=== PATIENT | male | born 1940 | race Caucasian/White ===

== ENCOUNTER 2021-08-19 12:52 | Outpatient (CLI) | payer OTHER, SELFPAY | END 2021-08-19 12:53 | disposition home or self-care (01) | PROVIDERS: PCP Family Medicine; Visit Provider Nurse Practitioner Family | DX: L59.8 Other specified disorders of the skin and subcutaneous tissue related to radiation (principal) | CPT/HCPCS: 11042 ==

== ENCOUNTER 2021-09-02 12:58 | Outpatient (CLI) | payer MEDICAID, OTHER, SELFPAY | END 2021-09-02 12:59 | disposition home or self-care (01) | LOC: WOUND 12:58 | PROVIDERS: PCP Family Medicine; Visit Provider Nurse Practitioner Family | DX: L59.8 Other specified disorders of the skin and subcutaneous tissue related to radiation (principal); L97.812 Non-pressure chronic ulcer of other part of right lower leg with fat layer exposed; F17.200 Nicotine dependence, unspecified, uncomplicated | CPT/HCPCS: 99212 ==

== ENCOUNTER 2021-09-16 12:50 | Outpatient (CLI) | payer OTHER, SELFPAY | END 2021-09-16 12:51 | disposition home or self-care (01) | LOC: WOUND 12:51 | PROVIDERS: PCP Family Medicine; Visit Provider Nurse Practitioner Family | DX: L59.8 Other specified disorders of the skin and subcutaneous tissue related to radiation (principal); L97.812 Non-pressure chronic ulcer of other part of right lower leg with fat layer exposed; F17.200 Nicotine dependence, unspecified, uncomplicated | CPT/HCPCS: 99212 ==

== ENCOUNTER 2021-09-29 15:35 | Outpatient (CLI) | payer OTHER, SELFPAY ==
--- OUTSIDE RECORDS SUMMARY | 2021-10-12 18:43 | XMS_ITS | Encounter Summary ---
:1940 Author Organization [facility] Address [address] [place] [address] Care Team Providers Name Role Phone Unavailable Primary Care Provider Unavailable Reason for Visit Reason Comments Follow-up Encounter Details Date Type Department Care Team Description 10/30/2020 Clinical Communication Department of Bethany Natarajanzuhair Radiation Oncology in [place] Adhikari [facility] a [address] [facility] [address] [place] [phone] Social History Tobacco Use Types Packs/Day Years [...] center to help with this. Phone number: [phone] Is it okay to leave a voicemail on answering machine with test results? No Pharmacy (if medication related): N/A Elif Parkinson documented in this encounter Plan of Treatment Not on filedocumented as of this encounter Visit Diagnoses Not on filedocumented in this encounter
--- OUTSIDE RECORDS SUMMARY | 2021-10-12 18:43 | XMS_ITS | Encounter Summary ---
:1940 Author Organization [facility] Address [address] [place] [address] Care Team Providers Name Role Phone Unavailable Primary Care Provider Unavailable Encounter Details Date Type Department Care Team Description 09/27/2020 Clinical Communication Department of Bethany Natarajan Radiation Oncology in [place] Adhikari [facility] [address] [facility] [address] [place] [address] [phone] Social History Tobacco Use Types Packs/Day Years [...]
--- OUTSIDE RECORDS SUMMARY | 2021-10-12 18:43 | XMS_ITS | Encounter Summary ---
:1940 Author Organization [facility] Address [address] [place] [address] Care Team Providers Name Role Phone Unavailable Primary Care Provider Unavailable Encounter Details Date Type Department Care Team Description 07/10/2020 Clinical Communication Department of Bethany Natarajan Radiation Oncology in [place] Adhikari [facility] [address] [facility] [address] [place] [address] [phone] Social History Tobacco Use Types Packs/Day Years [...] informed him that a prescription for the Harper has been sent to the [facility] in [place]. Phone number: [phone] Is it okay to leave a voicemail on answering machine with test results? Yes Pharmacy (if medication related): N/A Elif Parkinson documented in this encounter Plan of Treatment Not on filedocumented as of this encounter Visit Diagnoses Not on filedocumented in this encounter
--- OUTSIDE RECORDS SUMMARY | 2021-10-12 18:43 | XMS_ITS ---
:1940 Author Organization [facility] Address [address] [place] [address] Care Team Providers Name Role Phone Unavailable [...] Elapsed Days Session Dose Total Dos e [id number] 05/15/2020 21 300 cGy 4,500 cGy [id number] 05/06/2020 12 425 cGy 3,825 cGy [id number] 04/26/2020 2 700 cGy 2,100 cGy
--- OUTSIDE RECORDS SUMMARY | 2021-10-12 18:43 | XMS_ITS | Encounter Summary ---
:1940 Author Organization [facility] Address [address] [place] [address] Care Team Providers Name Role Phone Unavailable Primary Care Provider Unavailable Reason for Visit Reason Comments Med Refill Encounter Details Date Type Department Care Team Description 07/09/2020 Clinical Communication Department of Bethany Natarajan ed Refill Radiation Oncology in [place] Adhikari [facility] [address] [facility] [address] [place] [address] [phone] Social History Tobacco Use Types Packs/Day Years [...] would like a refill today. Phone number: [phone] Is it okay to leave a voicemail on answering machine with test results? Yes Pharmacy (if medication related): [facility] [address] [place] [address] [facility] [address] [facility] [address] Paula Hall documented in this encounter Plan of Treatment Not on filedocumented as of this encounter Visit Diagnoses Not on filedocumented in this encounter
--- OUTSIDE RECORDS SUMMARY | 2021-10-12 18:43 | XMS_ITS | Encounter Summary ---
:1940 Author Organization [facility] Address [address] [place] [address] Care Team Providers Name Role Phone Unavailable Primary Care Provider Unavailable Reason for Visit Reason Comments Med Refill Encounter Details Date Type Department Care Team Description 08/08/2020 Clinical Communication Department of Travis Hall Refjoanne Radiation Oncology in [facility] [place] [address] [place] [phone] Social History Tobacco Use Types Packs/Day Years Used Date Smoking Tobacco: Every Day Sex Assigned at Date Recorded Not on file documented as of this encounter Miscellaneous Notes Telephone Encounter - Deedee Fry R.N. - 08/08/2020 1:06 PM CDT Information Discussed I called and left voicemail on patient's phone requesting call back. Patient reported that he was taking [place] twice a day at his last in office visit with us. PLAN Dr. Natarajan and I will send through refill on [place] to get him through until August 16, 2020, when he is scheduled for follow up with Dr. Natarajan in [place]. Disposition/Recommendation: I requested call back, refill will be sent to patient's pharmacy today Information/Education: not applicable Caller agreeable to plan of care: unable to reach patient at this time The following references were used: nursing clinical judgement and provider Dr. Natarajan Telephone Encounter - Paula Hall - 08/08/2020 12:28 PM CDT Caller: Tl Is there a valid authorization to speak with caller? Yes Primary Radiation Oncologist: Dr. Natarajan Reason for call: Would like to see if we could refill his hydrocodone and would like a phone call toknow if it can be done or not Phone number: [phone] Is it okay to leave a voicemail on answering machine with test results? Yes Pharmacy (if medication related): [facility] [address] [place] [address] Paula Hall documented in this encounter Plan of Treatment Not on filedocumented as of this encounter Visit Diagnoses Not on filedocumented in this encounter
--- OUTSIDE RECORDS SUMMARY | 2021-10-12 18:43 | XMS_ITS | Encounter Summary ---
:1940 Author Organization [facility] Address [address] [place] [address] Care Team Providers Name Role Phone Unavailable Primary Care Provider Unavailable Reason for Referral Specialty Diagnoses / Procedures Referred By Contact Refer red To Contact Dona Zuniga M.D. [facility] [address] [place] [address] Referral ID Status Reason Start Date Expiration Date Visits Requ ested Visits Authorized Encounter Details Date Type Department Care Team Description 11/01/2020 Orders Only [facility] P[facility] MNT Sa greyson Zuniga M.D. [address] [place] [address] [phone] (Wo rk) Social History Tobacco [...]
--- OUTSIDE RECORDS SUMMARY | 2021-10-12 18:44 | XMS_ITS | Encounter Summary ---
:1940 Author Organization [facility] Address [address] [place] [address] Care Team Providers Name Role Phone Unavailable Primary Care Provider Unavailable Encounter Details Date Type Department Care Team Description 02/12/2017 Hospital Encounter HX RST DERM SURG OP Avni Gaffney [facility] M.D. [address] [place] [address] (Wo rk) Social History Tobacco Use Types Packs/Day Years Used Date Smoking Tobacco: Never Assessed Sex Assigned at Date Recorded Not on file documented as of this encounter Last Filed Vital Signs Vital Sign Reading Time Taken Comments Blood Pressure 141/85 02/12/2017 8:05 AM INTELLIGENT SYSTEMS ENGINEER Vital sign result from Clinical Notes. Pulse 89 02/12/2017 8:05 AM INTELLIGENT SYSTEMS ENGINEER Vital sign result from Clinical Notes. Temperature [...]
--- OUTSIDE RECORDS SUMMARY | 2021-10-12 18:44 | XMS_ITS | Encounter Summary ---
:1940 Author Organization [facility] Address [address] [place] [address] Care Team Providers Name Role Phone Unavailable Primary Care Provider Unavailable Reason for Referral Outpatient (Routine) - Closed Specialty Diagnoses / Procedures Referred By Contact Refer red To Contact Radiation Oncology Bethany Natarajan [facility] Feli Gomez M.D. [address] [place] [address] Referral ID Status Reason Start Date Expiration Date Visits Requ ested Visits Authorized [id number] Closed 05/28/2020 05/28/2021 1 1 Scheduling Instructions 2-3 weeks with [facility] Outpatient (Routine) - Closed Specialty Diagnoses / Procedures Referred By Contact Refer red To Contact Radiation Oncology Bethany Natarajan [facility] Feli Gomez M.D. [address] [place] [address] Referral ID Status Reason Start Date Expiration Date Visits Requ ested Visits Authorized [id number] Closed 05/15/2020 05/15/2021 1 1 Scheduling Instructions Deedee first to assess skin Reason for Visit Outpatient (Routine) - Closed Specialty Diagnoses / Procedures Referred By Contact Refer red To Contact Radiation Oncology Bethany Natarajan [facility] Feli Gomez M.D. 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 05/28/2020 1:16 PM CDT [facility] [address] [place] [address] ATTESTATION FOR FOLLOW-UP VISIT I saw and [...]
--- OUTSIDE RECORDS SUMMARY | 2021-10-12 18:44 | XMS_ITS | Encounter Summary ---
:1940 Author Organization [facility] Address [address] [place] [address] Care Team Providers Name Role Phone Unavailable [...] 04/16/2020 1:28 PM Re sults for this EMPLOYEE RELATIONS DIRECTOR procedure are i n the results section. documented in this encounter Results Leg-Oncology Image Exam (04/16/2020 1:28 PM EMPLOYEE RELATIONS DIRECTOR) Specimen (Source) Anatomical Collection Method Collection Time Re ceived Time Location / / Volume Laterality 04/16/2020 1:25 PM EMPLOYEE RELATIONS DIRECTOR Narrative IIMS - 04/16/2020 1:28 PM EMPLOYEE RELATIONS DIRECTOR This order has been created and auto-finalized [...]
--- OUTSIDE RECORDS SUMMARY | 2021-10-12 18:44 | XMS_ITS | Encounter Summary ---
:1940 Author Organization [facility] Address [address] [place] [address] Care Team Providers Name Role Phone Unavailable [...] 04/16/2020 1:28 PM Re sults for this NURSE ASSESSOR procedure are i n the results section. documented in this encounter Results Leg-Oncology Image Exam (04/16/2020 1:28 PM NURSE ASSESSOR) Specimen (Source) Anatomical Collection Method Collection Time Re ceived Time Location / / Volume Laterality 04/16/2020 1:25 PM NURSE ASSESSOR Narrative IIMS - 04/16/2020 1:28 PM NURSE ASSESSOR This order has been created and auto-finalized [...]
--- OUTSIDE RECORDS SUMMARY | 2021-10-12 18:44 | XMS_ITS | Encounter Summary ---
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 I encouraged him to [...] Garrison Casas M.D. 05/07/2020 4:51 PM CDT [facility] [address] [place] [address] documented in this encounter Plan of Treatment [...]
--- OUTSIDE RECORDS SUMMARY | 2021-10-12 18:44 | XMS_ITS | Encounter Summary ---
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 [facility] Procedures Prior Auth Rad Tx [place] IMRT COMPLEX [address] [place] [address] Referral ID Status Reason Start Date Expiration Date Visits Requ ested Visits Authorized [id number] Closed 04/16/2020 04/16/2021 15 15 Encounter Details Date Type Department Care Team Description 05/01/2020 Hospital Encounter Department of Radiation Shaneka Natarajan I., Oncology in [place], [place] [address] [facility] [address] [place] [phone] Social History Tobacco Use Types Packs/Day Years [...]
--- OUTSIDE RECORDS SUMMARY | 2021-10-12 18:44 | XMS_ITS | Encounter Summary ---
:1940 Author Organization [facility] Address [address] [place] [address] Care Team Providers Name Role Phone Unavailable [...] 12:05 Result s for this EXAM PM PROFESSOR OF BIOSTATISTICS procedure are i n the results section. documented in this encounter Results DERMATOLOGY IMAGE EXAM (02/12/2017 12:05 PM PROFESSOR OF BIOSTATISTICS) Specimen (Source) Anatomical Collection Method Collection Time Re ceived Time Location / / Volume Laterality 02/12/2017 12:00 PM PROFESSOR OF BIOSTATISTICS Narrative IIMS - 02/12/2017 2:49 PM PROFESSOR OF BIOSTATISTICS This order has been created and auto-finalized [...]
--- OUTSIDE RECORDS SUMMARY | 2021-10-12 18:44 | XMS_ITS | Encounter Summary ---
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; in [place], [facility] Malignant Neoplasm Of Lower Limb Basal C ell Carcinoma Right [place], [place] [address] [facility] [address] [place], [place] [phone] (Work) [phone] Social History Tobacco Use Types Packs/Day Years Used Date Smoking Tobacco: Every Day Sex Assigned at Date Recorded Not on file documented as of this encounter Last Filed Vital Signs Vital Sign Reading Time Taken Comments Blood Pressure 148/82 05/01/2020 1:55 PM SENIOR RUBY DEVELOPER Pulse 86 05/01/2020 1:55 PM SENIOR RUBY DEVELOPER Temperature 36.3 ??C (97.3 ??F) 05/01/2020 1:55 PM SENIOR RUBY DEVELOPER Respiratory Rate - - Oxygen Saturation - [...] with radiation treatment as planned. Signed by: Quynh Moreno P.A.-C. M.SJhon 05/01/2020 2:25 PM SENIOR RUBY DEVELOPER OR RUBY DEVELOPER Associated attestation - Bethany Natarajan M.D. - 05/01/2020 4:43 PM SENIOR RUBY DEVELOPER I saw and evaluated the patient and participated in the gregory portions of the service. I reviewed the documentation of Ms. Quynh Moreno PA-C, MS and agree with the findings and plan. The patient appears well on exam. We will continue with radiation as planned and monitor weekly. Bethany Natarajan M.D., 05/01/2020 documented in this encounter [...]
--- OUTSIDE RECORDS SUMMARY | 2021-10-12 18:44 | XMS_ITS | Encounter Summary ---
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
--- OUTSIDE RECORDS SUMMARY | 2021-10-12 18:44 | XMS_ITS | Encounter Summary ---
:1940 Author Organization [facility] Address [address] [place] [address] Care Team Providers Name Role Phone Unavailable [...] 12:00 Result s for this EXAM PM TEMPERATURE INSPECTOR procedure are i n the results section. documented in this encounter Results DERMATOLOGY IMAGE EXAM (02/12/2017 12:00 PM TEMPERATURE INSPECTOR) Specimen (Source) Anatomical Collection Method Collection Time Re ceived Time Location / / Volume Laterality 02/12/2017 12:00 PM TEMPERATURE INSPECTOR Narrative IIMS - 02/12/2017 2:49 PM TEMPERATURE INSPECTOR This order has been created and [...]
--- OUTSIDE RECORDS SUMMARY | 2021-10-12 18:44 | XMS_ITS | Encounter Summary ---
:1940 Author Organization [facility] Address [address] [place] [address] Care Team Providers Name Role Phone Unavailable Primary Care Provider Unavailable Reason for Visit Reason Comments Lab Monitoring Encounter Details Date Type Department Care Team Description 04/19/2020 Documentation Department of Radiation Deedee Fry, Lab Monitoring Oncology in [facility] [address] [facility] [address] [place] [address] [phone] (Wo rk) Social History Tobacco Use Types Packs/Day Years Used Date Smoking Tobacco: Every Day Sex Assigned at Date Recorded Not on file documented as of this encounter Progress Notes Deedee Fry, RJhonN. - 04/19/2020 10:39 AM CST Lab result entered in NG CUTTER documented in this encounter Plan of Treatment Not on filedocumented as of this encounter Procedures Procedure Name Priority Date/Time Associated Diagnosis Comme nts LABEXT SARS Routine 04/17/2020 12:00 AM Results for this CORONAVIRUS-2 LINING CUTTER procedure are in (COVID-19) RNA the results section. documented in this encounter Results EXT SARS Coronavirus-2 (COVID-19) RNA (04/17/2020 12:00 AM LINING CUTTER) [facility] Method Time Signature EXT Undetected Inconclus [facility] SARS-CoV-2 sylvia, LABORATORIES - RNA Indetermi [facility] Invalid, Negative, Not Detected, Undetecte d, Other (specify in comment) Specimen (Source) Anatomical Location Collection Method / Collectio n Time Received Time / Laterality Volume Swab 04/17/2020 Bethany Natarajan M.D. LAB MICROBIOLOGY - GENERAL O RDERABLES Performing Organization Address City/State/ZIP Code Phon e Number [facility] - [address] [place], [place] [address] [facility] documented in this encounter Visit Diagnoses Not on filedocumented in this encounter
--- OUTSIDE RECORDS SUMMARY | 2021-10-12 18:44 | XMS_ITS | Encounter Summary ---
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 [facility] Procedures Prior Auth Rad Tx [place] IMRT COMPLEX [address] [place] [address] Referral ID Status Reason Start Date Expiration Date Visits Requ ested Visits Authorized [id number] Closed 04/16/2020 04/16/2021 15 15 Encounter Details Date Type Department Care Team Description 05/13/2020 Hospital Encounter Department of Radiation Shaneka Natarajan I., Oncology in [place] [address] [facility] [address] [place] [phone] Social History Tobacco Use Types Packs/Day Years [...]
--- OUTSIDE RECORDS SUMMARY | 2021-10-12 18:44 | XMS_ITS | Encounter Summary ---
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 [facility] Procedures Prior Auth Rad Tx [place] IMRT COMPLEX [address] [place] [address] Referral ID Status Reason Start Date Expiration Date Visits Requ ested Visits Authorized [id number] Closed 04/16/2020 04/16/2021 15 15 Encounter Details Date Type Department Care Team Description 05/08/2020 Hospital Encounter Department of Radiation Shaneka Natarajan I., Oncology in [place] [address] [facility] [address] [place] [phone] Social History Tobacco Use Types Packs/Day Years [...]
--- OUTSIDE RECORDS SUMMARY | 2021-10-12 18:44 | XMS_ITS | Encounter Summary ---
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 [facility] Procedures Prior Auth Rad Tx [place] IMRT COMPLEX [address] [place] [address] Referral ID Status Reason Start Date Expiration Date Visits Requ ested Visits Authorized [id number] Closed 04/16/2020 04/16/2021 15 15 Encounter Details Date Type Department Care Team Description 04/29/2020 Hospital Encounter Department of Radiation Shaneka Natarajan I., Oncology in [place], [place]inne [place] [address] [facility] [address] [place] [phone] Social History Tobacco Use Types Packs/Day Years [...]
--- OUTSIDE RECORDS SUMMARY | 2021-10-12 18:44 | XMS_ITS | Encounter Summary ---
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 [facility] Procedures Prior Auth Rad Tx [place] IMRT COMPLEX [address] [place] [address] Referral ID Status Reason Start Date Expiration Date Visits Requ ested Visits Authorized [id number] Closed 04/16/2020 04/16/2021 15 15 Encounter Details Date Type Department Care Team Description 04/26/2020 Hospital Encounter Department of Radiation Shaneka Natarajan I., Oncology in [place], [place]inne [place] [address] [facility] [address] [place] [phone] Social History Tobacco Use Types Packs/Day Years [...]
--- OUTSIDE RECORDS SUMMARY | 2021-10-12 18:44 | XMS_ITS | Encounter Summary ---
:1940 Author Organization [facility] Address [address] [place] [address] Care Team Providers Name Role Phone Unavailable [...] 12:25 Result s for this EXAM PM SHAREPOINT CONSULTANT procedure are i n the results section. documented in this encounter Results DERMATOLOGY IMAGE EXAM (02/12/2017 12:25 PM SHAREPOINT CONSULTANT) Specimen (Source) Anatomical Collection Method Collection Time Re ceived Time Location / / Volume Laterality 02/12/2017 12:00 PM SHAREPOINT CONSULTANT Narrative [facility] - 02/12/2017 2:50 PM SHAREPOINT CONSULTANT This order has been created and auto-finalized [...]
--- OUTSIDE RECORDS SUMMARY | 2021-10-12 18:44 | XMS_ITS | Encounter Summary ---
:1940 Author Organization [facility] Address [address] [place] [address] Care Team Providers Name Role Phone Unavailable [...] 12:15 Result s for this EXAM PM RESISTANCE MACHINE WELDER SETTER procedure are i n the results section. documented in this encounter Results DERMATOLOGY IMAGE EXAM (02/12/2017 12:15 PM RESISTANCE MACHINE WELDER SETTER) Specimen (Source) Anatomical Collection Method Collection Time Re ceived Time Location / / Volume Laterality 02/12/2017 12:00 PM RESISTANCE MACHINE WELDER SETTER Narrative [facility] - 02/12/2017 2:49 PM RESISTANCE MACHINE WELDER SETTER This order has been created and auto-finalized [...]
--- OUTSIDE RECORDS SUMMARY | 2021-10-12 18:44 | XMS_ITS | Encounter Summary ---
:1940 Author Organization [facility] Address [address] [place] [address] Care Team Providers Name Role Phone Unavailable Primary Care Provider Unavailable Reason for Referral Specialty Diagnoses / Procedures Referred By Contact Refer red To Contact Bethany Natarajan M.D. [facility] [address] [place] [phone] Referral ID Status Reason Start Date Expiration Date Visits Requ ested Visits Authorized CIATE STORE DIRECTOR Encounter Details Date Type Department Care Team Description 04/30/2020 - Hospital Encounter Department of Aramis Natarajan M.D. 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 [address] [place] [phone] 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; in [place], Malignant Henry plasm Of Lower Limb Basal Cell Carcinoma Right [place] [address] [place] [phone] Social History Tobacco Use Types Packs/Day Years [...]
--- OUTSIDE RECORDS SUMMARY | 2021-10-12 18:44 | XMS_ITS | Encounter Summary ---
:1940 Author Organization [facility] Address [address] [place] [address] Care Team Providers Name Role Phone Unavailable Primary Care Provider Unavailable Reason for Referral Outpatient (Routine) - Closed Specialty Diagnoses / Procedures Referred By Contact Refer jose luis To Contact Radiation Oncology Bethany Natarajan [facility] Feli Gomez M.D. [address] [place] [phone] Referral ID Status Reason Start Date Expiration Date Visits Requ ested Visits Authorized [id number] Closed 05/28/2020 05/28/2021 1 1 Scheduling Instructions 2-3 weeks with CECY and Deedee Reason for Visit Outpatient (Routine) - Closed Specialty Diagnoses / Procedures Referred By Contact Sofi amaya To Contact Radiation Oncology Bethany Natarajan [facility] Feli Gomez M.D. [address] [place] [phone] Referral ID Status Reason Start Date Expiration Date Visits Requ ested Visits Authorized [id number] Closed 05/28/2020 05/28/2021 1 1 Encounter Details Date Type Department Care Team Description 06/11/2020 Hospital Encounter Department of Bethany Natarajan (Primary Dx) Radiation Oncology [place] Adhikari in [place], [address] [place] [address] [address] [facility] [address] [place], [place] [phone] (Work) [phone] Social History Tobacco Use Types Packs/Day Years [...] a 8 out of 10.He takes 1 Mills in the morning and 1 at bedtime. [...] will send through prescription refill on his Mills to his preferred pharmacy today. Patient is to not exceed 3200 mg of Ibuprofen a day. We encouraged patient to trial warm compresses for acute right eye mattering. We will send through referral to [facility]. We will see Mr. Tl Lugo in a follow-up visit in late July. The patient was told to contact us sooner with questions or concerns. He verbally expressed his understanding of the plan. Signed by: Deedee Fry R.N. 06/11/2020 1:09 PM CDT [facility] [address] [place] [address] documented in this encounter Plan of Treatment Scheduled Referrals Name Type Priority Associated Order Schedule Diagnoses Radiation Oncology Outpatient Referral Routine On ce for 1 office visit Occurrences sta rting (clinic) 06/11/2020 unti l 06/11/2020 documented as of this encounter Visit Diagnoses Diagnosis Red Eye - Primary documented in this encounter
--- OUTSIDE RECORDS SUMMARY | 2021-10-12 18:44 | XMS_ITS | Encounter Summary ---
:1940 Author Organization [facility] Address [address] [place] [address] Care Team Providers Name Role Phone Unavailable Primary Care Provider Unavailable Encounter Details Date Type Department Care Team Description 05/15/2020 Hospital Encounter Department of Radiation Shaneka Natarajan I., Oncology in [facility] [address] [facility] [address] [place] [phone] Social History Tobacco Use Types Packs/Day Years [...]
--- OUTSIDE RECORDS SUMMARY | 2021-10-12 18:44 | XMS_ITS | Encounter Summary ---
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 [facility] Procedures Prior Auth Rad Tx [place] IMRT COMPLEX [address] [place] [address] Referral ID Status Reason Start Date Expiration Date Visits Requ ested Visits Authorized [id number] Closed 04/16/2020 04/16/2021 15 15 Encounter Details Date Type Department Care Team Description 04/24/2020 Hospital Encounter Department of Radiation Shaneka Natarajan I., Oncology in [place], [place]inne [place] [address] [facility] [address] [place] [phone] Social History Tobacco Use Types Packs/Day Years [...]
--- OUTSIDE RECORDS SUMMARY | 2021-10-12 18:44 | XMS_ITS | Encounter Summary ---
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 [facility] Procedures Prior Auth Rad Tx [place] IMRT COMPLEX [address] [place] [address] Referral ID Status Reason Start Date Expiration Date Visits Requ ested Visits Authorized [id number] Closed 04/16/2020 04/16/2021 15 15 Encounter Details Date Type Department Care Team Description 04/30/2020 Hospital Encounter Department of Radiation Shaneka Natarajan I., Oncology in [place], [place]inne [place] [address] [facility] [address] [place] [phone] Social History Tobacco Use Types Packs/Day Years [...]
--- OUTSIDE RECORDS SUMMARY | 2021-10-12 18:44 | XMS_ITS | Encounter Summary ---
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 [facility] Procedures Prior Auth Rad Tx [place] IMRT COMPLEX [address] [place] [address] Referral ID Status Reason Start Date Expiration Date Visits Requ ested Visits Authorized [id number] Closed 04/16/2020 04/16/2021 15 15 Encounter Details Date Type Department Care Team Description 05/02/2020 Hospital Encounter Department of Radiation Shaneka Natarajan I., [place]cology in [place] [address] [facility] [address] [place] [phone] Social History Tobacco Use Types Packs/Day Years [...]
--- OUTSIDE RECORDS SUMMARY | 2021-10-12 18:44 | XMS_ITS | Encounter Summary ---
:1940 Author Organization [facility] Address [address] [place] [address] Care Team Providers Name Role Phone Unavailable [...] 12:10 Result s for this EXAM PM IMPLEMENTATION LEAD procedure are i n the results section. documented in this encounter Results DERMATOLOGY IMAGE EXAM (02/12/2017 12:10 PM IMPLEMENTATION LEAD) Specimen (Source) Anatomical Collection Method Collection Time Re ceived Time Location / / Volume Laterality 02/12/2017 12:00 PM IMPLEMENTATION LEAD Narrative [facility] - 02/12/2017 2:49 PM IMPLEMENTATION LEAD This order has been created and auto-finalized [...]
--- OUTSIDE RECORDS SUMMARY | 2021-10-12 18:44 | XMS_ITS | Encounter Summary ---
:1940 Author Organization [facility] Address [address] [place] [address] Care Team Providers Name Role Phone Unavailable [...] 12:20 Result s for this EXAM PM GANG TAILER procedure are i n the results section. documented in this encounter Results DERMATOLOGY IMAGE EXAM (02/12/2017 12:20 PM GANG TAILER) Specimen (Source) Anatomical Collection Method Collection Time Re ceived Time Location / / Volume Laterality 02/12/2017 12:00 PM GANG TAILER Narrative [facility] - 02/12/2017 2:49 PM GANG TAILER This order has been created and auto-finalized [...]
--- OUTSIDE RECORDS SUMMARY | 2021-10-12 18:44 | XMS_ITS | Encounter Summary ---
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 [facility] Procedures Prior Auth Rad Tx [place] IMRT COMPLEX [address] [place] [address] Referral ID Status Reason Start Date Expiration Date Visits Requ ested Visits Authorized [id number] Closed 04/16/2020 04/16/2021 15 15 Encounter Details Date Type Department Care Team Description 05/03/2020 Hospital Encounter Department of Radiation Shaneka Natarajan I., [place] [address] [facility] [address] [place] [phone] Social History Tobacco Use Types Packs/Day Years [...]
--- OUTSIDE RECORDS SUMMARY | 2021-10-12 18:44 | XMS_ITS | Encounter Summary ---
:1940 Author Organization [facility] Address [address] [place] [address] Care Team Providers Name Role Phone Unavailable [...] 12:00 Result s for this EXAM PM ALARM OPERATOR procedure are i n the results section. documented in this encounter Results DERMATOLOGY IMAGE EXAM (01/19/2017 12:00 PM ALARM OPERATOR) Specimen (Source) Anatomical Location Collection Method / Collectio n Time Received Time / Laterality Volume Narrative [facility] - 01/19/2017 4:19 PM ALARM OPERATOR This order has been created and auto-finalized [...]
--- OUTSIDE RECORDS SUMMARY | 2021-10-12 18:44 | XMS_ITS | Encounter Summary ---
:1940 Author Organization [facility] Address [address] [place] [address] Care Team Providers Name Role Phone Unavailable Primary Care Provider Unavailable Reason for Visit Appointment Request (Routine) - Closed Specialty Diagnoses / Procedures Referred By Contact Refer red To Contact Radiation Oncology Diagnoses Malignant Neoplasm Of Skin Basal Cell Carcinoma Malignant Neoplasm Of Skin Squamous Cell Carcinoma Annita Jay M.D. [address], [facility] [address] [place] [address] Referral ID Status Reason Start Date Expiration Date Visits Requ ested Visits Authorized [id number] Closed 03/08/2020 03/08/2021 1 1 Encounter Details Date Type Department Care Team Description 04/16/2020 Hospital Encounter Department of Bethany Natarajan Neoplasm Of Lower Limb Basal Cell Carcinoma Left (Primary Dx); Radiation Oncology [place] Adhikari Malignant Neoplasm Of Lower Limb Basal C ell Carcinoma Right; in [place], [facility] [address] [facility] 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 [place], [place] [address] [facility] [address] [place], [place] [phone] (Work) [phone] Social History Tobacco Use Types Packs/Day Years Used Date Smoking Tobacco: Every Day Sex Assigned at Date Recorded Not on file documented as of this encounter Last Filed Vital Signs Vital Sign Reading Time Taken Comments Blood Pressure 124/76 04/16/2020 12:50 PM TRAFFIC LINE PAINTER Pulse 93 04/16/2020 12:50 PM TRAFFIC LINE PAINTER Temperature 37.2 ??C (99 ??F) 04/16/2020 12:50 PM TRAFFIC LINE PAINTER Respiratory Rate - - Oxygen Saturation - - Inhaled Oxygen Concentration - - Weight 95.5 kg (210 lb 8.6 oz) 04/16/2020 12:50 PM TRAFFIC LINE PAINTER Height - - Body Mass Index - [...] surgery, nose SOCIAL HISTORY He lives in [place], [place]. He lives at [place] in an apartment. He is single. 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 He is mobile with [...] Photos were taken and are available in [employer] after obtaining consent. He has a 1.5 [...] We discussed the acute as well as exterminator helper risks, including, but not limited to fatigue, [...] by: Bethany Natarajan M.D. 04/16/2020 4:52 PM TRAFFIC LINE PAINTER Radiation Oncology [facility] [address] [place], [place] [id number] FIC LINE PAINTER documented in this encounter Miscellaneous Notes Addendum Note - Mame Amezquita - 04/16/2020 1:00 PM TRAFFIC LINE PAINTER Encounter addended by: Mame Amezquita on: 04/17/2020 8:34 AM Actions taken: Letter saved FIC LINE PAINTER documented in this encounter Plan of Treatment Not on filedocumented as of this encounter Visit Diagnoses Diagnosis Malignant Neoplasm Of Lower Limb Basal C ell Carcinoma Left - Primary Malignant Neoplasm Of Lower Limb Basal C ell Carcinoma Right 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
--- OUTSIDE RECORDS SUMMARY | 2021-10-12 18:44 | XMS_ITS | Encounter Summary ---
:1940 Author Organization [facility] Address [address] [place] [address] Care Team Providers Name Role Phone Unavailable [...] 12:35 Result s for this EXAM PM FIELD SERVICE COORDINATOR procedure are i n the results section. documented in this encounter Results DERMATOLOGY IMAGE EXAM (02/12/2017 12:35 PM FIELD SERVICE COORDINATOR) Specimen (Source) Anatomical Collection Method Collection Time Re ceived Time Location / / Volume Laterality 02/12/2017 12:00 PM FIELD SERVICE COORDINATOR Narrative [facility] - 02/12/2017 2:50 PM FIELD SERVICE COORDINATOR This order has been created and auto-finalized [...]
--- OUTSIDE RECORDS SUMMARY | 2021-10-12 18:44 | XMS_ITS | Encounter Summary ---
:1940 Author Organization [facility] Address [address] [place] [address] Care Team Providers Name Role Phone Unavailable [...] Onc Treatment Planning CT Simulation [address] [place], [place] [address] Referral ID Status Reason Start Date Expiration Date Visits Requ ested Visits Authorized [id number] Closed 04/10/2020 04/10/2021 1 1 D NUTRITION ASSISTANT Reason for Visit Radiation Therapy (Routine) [...] Onc Treatment Planning CT Simulation [address] [place], [place] [phone] Referral ID Status Reason Start Date Expiration Date Visits Requ ested Visits Authorized [id number] Closed 04/10/2020 04/10/2021 1 1 Encounter Details Date Type Department Care Team Description 04/16/2020 Hospital Encounter Department of Bethany Natarajan Neoplasm Of Lower Limb Basal Cell Carcinoma Left; Radiation Oncology [place] Adhikari 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; in [place], [address] [place] [address] Malignant Neoplasm Of Lower Limb Basal C ell Carcinoma Right [place], [place] [address] [facility] [address] [place], [place] [phone] (Work) [phone] Social History Tobacco Use Types Packs/Day Years [...] planning. CT images were transferred to the engageSimply treatment planning system, after a reference isocenter was determined and marked. Segmentation and treatment planning will take place priorto treatment delivery. Patient set up and imaging was appropriate and completed without incident. Integration Analyst use:No D NUTRITION ASSISTANT documented in this encounter Plan of Treatment Not on filedocumented as of this encounter Procedures Procedure Name Priority Date/Time Associated Comments Diagnosis INITIAL RAD ONC Routine 04/16/2020 2:00 PM Malignant Neoplasm Results for this TREATMENT PLANNING CHILD NUTRITION ASSISTANT Of Lower Limb Basal pr ocedure are in CT SIMULATION Cell Carcinoma L eft the results Malignant Neoplasm section. Of Lower Limb Squamous Cell Carcinoma Left Malignant Neoplasm Of Lower Limb Basal Cell Carcinoma Right documented in this encounter Results Initial Rad Onc Treatment Planning CT Simulation (04/16/2020 2:00 PM CHILD NUTRITION ASSISTANT) Specimen (Source) Anatomical Location Collection Method / Collectio n Time Received Time / Laterality Volume Narrative [facility] - 04/16/2020 2:00 PM CHILD NUTRITION ASSISTANT Coral Alonso RTT ? 04/16/2020 ??4:02 PM Initial Rad Onc Treatment Planning CT Si mulation Date/Time: 04/16/2020 3:57 PM Performed by: Bethany Natarajan M.D. Authorized by: Bethany Natarajan M.D. Bethany Natarajan M.D. 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
--- OUTSIDE RECORDS SUMMARY | 2021-10-12 18:44 | XMS_ITS | Encounter Summary ---
:1940 Author Organization [facility] Address [address] [place] [address] Care Team Providers Name Role Phone Unavailable [...] 12:30 Result s for this EXAM PM COMMUNITY PLANNER procedure are i n the results section. documented in this encounter Results DERMATOLOGY IMAGE EXAM (02/12/2017 12:30 PM COMMUNITY PLANNER) Specimen (Source) Anatomical Collection Method Collection Time Re ceived Time Location / / Volume Laterality 02/12/2017 12:00 PM COMMUNITY PLANNER Narrative [facility] - 02/12/2017 2:50 PM COMMUNITY PLANNER This order has been created and auto-finalized [...]
--- OUTSIDE RECORDS SUMMARY | 2021-10-12 18:44 | XMS_ITS | Encounter Summary ---
:1940 Author Organization [facility] Address [address] [place] [address] Care Team Providers Name Role Phone Unavailable [...] 04/16/2020 1:25 PM Re sults for this COAT CHECKER procedure are i n the results section. documented in this encounter Results Pelvis-Oncology Image Exam (04/16/2020 1:25 PM COAT CHECKER) Specimen (Source) Anatomical Collection Method Collection Time Re ceived Time Location / / Volume Laterality 04/16/2020 1:25 PM COAT CHECKER Narrative [facility] - 04/16/2020 1:28 PM COAT CHECKER This order has been created and auto-finalized [...]
--- OUTSIDE RECORDS SUMMARY | 2021-10-12 18:44 | XMS_ITS | Encounter Summary ---
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 [facility] Procedures Prior Auth Rad Tx [place] IMRT COMPLEX [address] [place] [address] Referral ID Status Reason Start Date Expiration Date Visits Requ ested Visits Authorized [id number] Closed 04/16/2020 04/16/2021 15 15 Encounter Details Date Type Department Care Team Description 05/09/2020 Hospital Encounter Department of Radiation Shaneka Natarajan I., [place]cology in [place] [address] [facility] [address] [place] [phone] Social History Tobacco Use Types Packs/Day Years [...]
== END 2021-09-29 15:36 | disposition home or self-care (01) ==
LOC: AMB 10-12 18:41
PROVIDERS: PCP Family Medicine; Visit Provider Family Medicine
DX: R53.1 Weakness (principal)
CPT/HCPCS: A0998

== ENCOUNTER 2021-09-30 12:55 | Outpatient (CLI) | payer OTHER, SELFPAY ==
--- OUTSIDE RECORDS SUMMARY | 2021-10-01 06:25 | XMS_ITS | Encounter Summary ---
:1940 Author Organization [facility] Address [address] [place] [address] Care Team Providers Name Role Phone Unavailable Primary Care Provider Unavailable Encounter Details Date Type Department Care Team Description 09/27/2020 Clinical Communication Department of Bethany Natarajan Radiation Oncology in [place] Adhikari [facility] [address] [facility] [address] [place] [phone] Social History Tobacco Use Types Packs/Day Years Used Date Smoking Tobacco: Every Day Sex Assigned at Date Recorded Not on file documented as of this encounter Miscellaneous Notes Telephone Encounter - Elif Parkinson - 09/27/2020 2:52 PM CDT Patient no-showed his follow-up on 08/20. Multiple attempts have been made to the patient to reschedule (08/20, 09/09, 09/27). Patient has not returned any of our calls. documented in this encounter Plan of Treatment Not on filedocumented as of this encounter Visit Diagnoses Not on filedocumented in this encounter
--- OUTSIDE RECORDS SUMMARY | 2021-10-01 06:25 | XMS_ITS | Encounter Summary ---
:1940 Author Organization [facility] Address [address] [place] [address] Care Team Providers Name Role Phone Unavailable Primary Care Provider Unavailable Reason for Referral Outpatient (Routine) - Closed Specialty Diagnoses / Procedures Referred By Contact Refer red To Contact Radiation Oncology Bethany Natarajan [facility] Feli Gomez M.D. [address] [place] [address] Referral ID Status Reason Start Date Expiration Date Visits Requ ested Visits Authorized [id number] Closed 05/28/2020 05/28/2021 1 1 Scheduling Instructions 2-3 weeks with [facility] and De[facility]ee Outpatient (Routine) - Closed Specialty Diagnoses / Procedures Referred By Contact Refer red To Contact Radiation Oncology Bethany Natarajan [facility] Feli Gomez M.D. [address] [place] [address] Referral ID Status Reason Start Date Expiration Date Visits Requ ested Visits Authorized [id number] Closed 05/15/2020 05/15/2021 1 1 Scheduling Instructions Deedee first to assess skin Reason for Visit Outpatient (Routine) - Closed Specialty Diagnoses / Procedures Referred By Contact Refer red To Contact Radiation Oncology Bethany Natarajan [facility] Feli Gomez M.D. [address] [place] [address] Referral ID Status Reason Start Date Expiration Date Visits Requ ested Visits Authorized [id number] Closed 05/15/2020 05/15/2021 1 1 Encounter Details Date Type Department Care Team Description 05/28/2020 Hospital Encounter Department Bethany Dickey Neoplasm Of Lower Limb Basal Cell Carcinoma Left (Primary Dx); Radiation Oncology Corinne Adhikari Malignant Neoplasm Of Lower Limb Basal C ell Carcinoma Right; in [address] 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 [place], [place] [address] [facility] [address] [place], [place] [phone] (Work) [phone] Social History Tobacco Use Types Packs/Day Years Used Date Smoking Tobacco: Every Day Sex Assigned at Date Recorded Not on file documented as of this encounter Last Filed Vital Signs Vital Sign Reading Time Taken Comments Blood Pressure 142/85 05/28/2020 10:55 AM CDT Pulse 96 05/28/2020 10:55 AM CDT Temperature 36.8 ??C (98.2 ??F) 05/28/2020 10:55 AM CDT Respiratory Rate - - Oxygen Saturation - - Inhaled Oxygen Concentration - - Weight - - Height - - Body Mass Index - - documented in this encounter Medications at Time of Discharge Medication Sig Dispensed Refills Start Date End Date aspirin [address] tablet Take 81 mg by mouth 0 daily. atorvastatin (LIPITOR) Take 80 mg by mouth. 0 80 mg tablet furosemide (LASIX) 20 mg 2 (two) times a day. 0 0 04/12/2020 tablet gabapentin (NEURONTIN) Take 600 mg by mouth 0 300 mg capsule 3 (three) times a day. ibuprofen (ADVIL,MOTRIN) Take 200 mg by mouth 0 200 mg tablet every 6 (six) hours as needed for pain. UNABLE TO FIND 200 each. Ibuprofen 0 PM 200/38 warfarin (COUMADIN) 4 mg Take one-half tablet 0 1 03/18/2019 tablet M-W-F. Take a full tablet all other days HYDROcodone-acetaminophe Take 1 tablet by 30 tablet 0 05/2806/11/2020 n (NORCO) 5-325 mg per mouth every 6 (six) tabletIndications: hours as needed for Prolonged Acute severe pain or score Pain/Traumatic Injury 7-10 of 10 Indication: Prolonged Acute Pain/Traumatic Injury. documented as of this encounter Progress Notes Bethany Natarajan M.D. - 05/28/2020 11:00 AM CDT SUBJECTIVE DIAGNOSIS #1 Non-melanomatous skin cancers, s/p biopsy SUPERVISED BY: Bethany Natarajan M.D. HISTORY OF PRESENT ILLNESS Mr. Tl Lugo is a 80 y.o. male with non-melanomatous skin cancers. He completed radiation therapy to the left inguinal on April 30, 2020, radiation therapy to the right inguinal completed on May 07, 2020 and radiation therapy to the left lower extremity completed on May 15, 2020. He is being seen today in a follow up visit to assess his skin to all 3 treatment field areas. His oncologic history is as follows: 1. January 08, 2020: ??Appointment Dr. Marla Knott for evaluation of non- healing lesion on his left lower leg. ??The lesion had been present for years and was growing in size. ??Physical examination of the left lower extremity demonstrated a 1 cm raised scaly lesion over the tibia that was tender to palpation. ??There was no surrounding erythema. ??There were a few other small scaly lesions on the anterior leg that were several mm. ??He also had a scaly lesion on his left ear. ??He had two small open areas, one in his pannus and one on his right AKA incision. ??A 3 mm punch biopsy of the left lower extremity was performed. 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 ??Perineural invasion was absent. ??Margin status was positive (peripheral). 2. February 22, 2020: ??Dermatology consultation with Dr. Annita Jay. ??The patient reported being previously treated for over 11 basal cell and squamous cell carcinomas. ??Physical examination demonstrated a 1-1.4 cm verrucous lesion on the left medial pretibial leg. ??There was a translucent i ndurated plaque approximately 2.5 cm on the left inferior pannus of the abdomen and a similar erodedlesion almost 2.5 cm in the right inguinal crease. ??There was a slightly translucent annular 9 mm patch on the anterior scalp line. ??There was a hypopigmented patch on the left anterior scalp. ??Biopsies of the left inguinal crease, right inguinal crease, and middle anterior forehead were performed.??Dr. Jay felt that the lower leg as well as the inguinal creases had potential complication risks including infection dehiscence and irritation. ??They discussed radiation treatment in detail and Dr. Jay felt that this was the most viable option for him. ??For the lesion on the anterior forehead they discussed using Efudex. ??Pathology of the right groin demonstrated scant fragments of inflamed serum crust. ??Pathology of the left groin demonstrated basal cell carcinoma, nodular type. ??Perineural invasion was absent. ??Margins were positive. ??Pathology of forehead demonstrated hypertrophicactinic keratosis extending to the base of the biopsy. 3. April 24, 2020 through April 30, 2020: Patient received radiotherapy to the tumor in the left inguinal skin to a dose of 3500 cGy in 5 fractions. 3. April 24, 3020 through May 07, 2020: Patient received radiotherapy to the right inguinal to a dose of 4250 cGy in 10 fractions. 4. April 24, 2020 through May 15, 2020: Patient received radiotherapy to the tumor in skin of left leg and satellite lesions to a dose of 4500 cGy in 15 fractions. INTERVAL HISTORY The patient was seen and examined today with Dr. Natarajan. The patient reports doing well overall. He rates his fatigue as a 0 on a 0/10 scale. Patient reportsthat he is using a wet wash cloth and soaking the right groin and left leg wounds. He then applies Aquaphor to both areas at least 3-4 times a day. He is not using Xeroform dressings as he felt they stung and did not apply well to his skin. He ran out of Hydrocodone on Wednesday. He has been taking up to12-14 Ibuprofen tablets a day. He denies fevers, chills, diarrhea, changes in urination pattern or dysuria. He reports that his left lower extremity dermatitis is seeping clear drainage. He rates his tejal at 10 out of 10 to the left leg. REVIEW OF SYSTEMS Review of systems was negative except as documented above. PATIENT REPORTED SYMPTOM SCREEN FATIGUE (Scale: 0 = no fatigue; 10 = worst fatigue you can imagine): 0 PAIN (Scale: 0 = no pain; 10 = worst pain you can imagine): 10 OVERALL QUALITY OF LIFE (Scale: 0 = as bad as can be; 10 = as good as can be): 8 OBJECTIVE BP 142/85 (BP Location: Left arm, Patient Position: Sitting, Cuff Size: Large) Pulse 96 Temp 36.8 ??C (Temporal) PHYSICAL EXAM General: Patient is awake, alert, and oriented to person, place, and time. No apparent distress. Skin: moist desquamation with noted muted yellow exudate present to the left lower extremity as wellas mild erythema, small area of dry desquamation to the left inguinal region and opened moist desquamation to the right inguinal region. ASSESSMENT / PLAN #1?Multiple non-melanomatous skin cancers, s/p biopsy (right and left groin) and left lower leg #2 ??Satellite lesions around the left lower leg squamous cell carcinoma #3 ??Other suspicious appearing lesion on his left anterior chest (X2), left forearm and with in theskin folds of his right leg stump #4 ??Radiotherapy to the right inguinal, left inguinal and left leg lesion initiated on April 24, 2020; completed on left inguinal on April 30, 2020; completed to the right inguinal on May 07, 2020; completed on May 14, 2020 to the left leg and satellite lesions #5 Left testicular swelling, US negative Dr. Natarajan and I dressed both the right inguinal open wound and the left lower leg desquamated region with Aquaphor and Telfa. We secured Telfa on the left lower extremity with Pro-net. Patient is to continue to apply a wet soak to both the right inguinal region and to the left lower extremity at least twice a day. Air dry and then apply Aquaphor at least 3-[address] Natarajan encouraged patient to have both areas open to air as much as possible to help with the healing process. Healing may take months. I have provided patient with samples of Pro-Net, Aquaphor and Telfa today. We will send through for a Hydrocodone refill prescription today. Patient is to alternate Hydrocodone and Ibuprofen for pain management. Patient is to cut back on his daily Ibuprofen use. We will see Mr. Tl [place] a follow-up visit in 2 weeks. If his skin is healing well at this timeframe, patient can cancel his 2 week follow up visit. The patient was told to contact us sooner with questions or concerns. He verbally expressed his understanding of the plan. Signed by: Deedee Fry R.N. 05/28/2020 1:16 PM CDT [facility] [address] [place] [address] ATTESTATION FOR FOLLOW-UP VISIT I saw and evaluated the patient and participated in the gregory portions of the service. I reviewed the documentation of Ms. Deedee Fry RN and agree with the findings and plan. Mr. Lugo is quite frustrated with his recovery from treatments and wishes he hadn't done them. However, the left groin has healed well. The right groin and leg are quite painful as outlined above. He continues to refuse vinegarsoaks, but is soaking with water and applying aquaphor. He ran out of his hydrocodone on Wednesday and started iburpofen. I counseled him on taking the Iburpofen with a full stomach and limiting it's usage if possible. On exam, the left groin skin has healed and he has only tanning in the area. The rightgroin has an open area of moist desquamation measuring 7.5 x 3cm; it does not appear infected, but is more moist. It has no active bleeding at this time. The left anterior lower leg skin has an area over 15 X 9cm that has moist desquamation. I explained that it could take quite a bit of time for healing. This is a slow process. We refilled his hydrocodone and will see him back again in 2 weeks. His questions were answered; he was comfortable with this plan. I personally spent 30 minutes in care of the patient today. Time includes both non face to face and face to face patient care. documented in this encounter Plan of Treatment Scheduled Referrals Name Type Priority Associated Order Schedule Diagnoses Radiation Oncology Outpatient Referral Routine On ce for 1 office visit Occurrences sta rting (clinic) 05/28/2020 unti l 05/28/2020 Radiation Oncology Outpatient Referral Routine Ex pected: 07/09/2020 office visit (Approximate), (clinic) Expires: 2021 documented as of this encounter Visit Diagnoses Diagnosis Malignant Neoplasm Of Lower Limb Basal C ell Carcinoma Left - Primary Malignant Neoplasm Of Lower Limb Basal C ell Carcinoma Right 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
--- OUTSIDE RECORDS SUMMARY | 2021-10-01 06:25 | XMS_ITS | Encounter Summary ---
:1940 Author Organization [facility] Address [address] [place] [address] Care Team Providers Name Role Phone Unavailable Primary Care Provider Unavailable Reason for Visit Reason Comments Med Refill Encounter Details Date Type Department Care Team Description 07/09/2020 Clinical Communication Department of Bethany Natarajan ed Refill Radiation Oncology in [place] Adhikari [facility] [address] [facility] [address] [place] [phone] Social History Tobacco Use Types Packs/Day Years Used Date Smoking Tobacco: Every Day Sex Assigned at Date Recorded Not on file documented as of this encounter Miscellaneous Notes Telephone Encounter - Paula Hall - 07/09/2020 2:15 PM CDT Caller: Tl Is there a valid authorization to speak with caller? Yes Primary Radiation Oncologist: Dr. Natarajan Reason for call: Rx refill on his hydrocodone. He currently only has 1 pill left and would like a refill today. Phone number: [phone] Is it okay to leave a voicemail on answering machine with test results? Yes Pharmacy (if medication related): [facility] [address] [place] [address] [address] [facility] [address] [facility] [id number] Paula Hall documented in this encounter Plan of Treatment Not on filedocumented as of this encounter Visit Diagnoses Not on filedocumented in this encounter
--- OUTSIDE RECORDS SUMMARY | 2021-10-01 06:25 | XMS_ITS | Encounter Summary ---
:1940 Author Organization [facility] Address [address] [place] [address] Care Team Providers Name Role Phone Unavailable Primary Care Provider Unavailable Reason for Visit Reason Comments Follow-up Encounter Details Date Type Department Care Team Description 10/30/2020 Clinical Communication Department of Bethany Natarajanzuhair Radiation Oncology in [place] Adhikari [facility] [address] [facility] [address] [place] [phone] Social History Tobacco Use Types Packs/Day Years Used Date Smoking Tobacco: Every Day Sex Assigned at Date Recorded Not on file documented as of this encounter Miscellaneous Notes Telephone Encounter - Deedee Fry R.N. - 11/01/2020 4:20 PM CDT I have called patient twice and left two voicemails. Telephone Encounter - Elif Parkinson - 10/30/2020 9:17 AM CDT Caller: Tl Lugo Is there a valid authorization to speak with caller? Yes Primary Radiation Oncologist: Dr. Natarajan Reason for call: Patient calls as he had some work done on his groin wound at the wound clinic yesterday. At that time, they found a piece of steel in his groin that they attempted to pull out. He is now in a great deal of pain and wants someone here to fill a pain prescription for him. I instructed him that that would need to be done by one of the wound physicians as we have not seen the patienthere since May and the pain is not related to his treatment here. He stated that at radiation thispiece of steel should have been noticed and therefore his current pain is related to his treatment here, and he needs a provider here to help with his pain prescription as there are not MD's at the wound center to help with this. Phone number: [phone] Is it okay to leave a voicemail on answering machine with test results? No Pharmacy (if medication related): N/A Elif Parkinson documented in this encounter Plan of Treatment Not on filedocumented as of this encounter Visit Diagnoses Not on filedocumented in this encounter
--- OUTSIDE RECORDS SUMMARY | 2021-10-01 06:25 | XMS_ITS | Encounter Summary ---
:1940 Author Organization [facility] Address [address] [place] [address] Care Team Providers Name Role Phone Unavailable Primary Care Provider Unavailable Reason for Referral Outpatient (Routine) - Closed Specialty Diagnoses / Procedures Referred By Contact Refer jose luis To Contact Radiation Oncology Bethany Natarajan [facility] Feli Gomez M.D. [address] [place] [phone] Referral ID Status Reason Start Date Expiration Date Visits Requ ested Visits Authorized [id number] Closed 05/28/2020 05/28/2021 1 1 Scheduling Instructions 2-3 weeks with [facility] and Deedee Reason for Visit Outpatient (Routine) - Closed Specialty Diagnoses / Procedures Referred By Contact Sofi amaya To Contact Radiation Oncology Bethany Natarajan [facility] Feli Gomez M.D. [address] [place] [phone] Referral ID Status Reason Start Date Expiration Date Visits Requ ested Visits Authorized [id number] Closed 05/28/2020 05/28/2021 1 1 Encounter Details Date Type Department Care Team Description 06/11/2020 Hospital Encounter Department of Bethany Natarajan (Primary Dx) Radiation Oncology Corinne Adhikari in [place], [address] [place] [address] [address] [facility] [address] [place], [place] [phone] (Work) [phone] Social History Tobacco Use Types Packs/Day Years Used Date Smoking Tobacco: Every Day Sex Assigned at Date Recorded Not on file documented as of this encounter Last Filed Vital Signs Vital Sign Reading Time Taken Comments Blood Pressure 143/85 06/11/2020 11:22 AM CDT Pulse 63 06/11/2020 11:22 AM CDT Temperature 36.6 ??C (97.9 ??F) 06/11/2020 11:22 AM CDT Respiratory Rate - - Oxygen Saturation - - Inhaled Oxygen Concentration - - Weight 95 kg (209 lb 7 oz) 06/11/2020 11:22 AM CDT Height - - Body Mass Index - [...] Take 1 tablet by 30 tablet 0 06/1107/09/2020 n (NORCO) 5-325 mg per mouth every 6 (six) tabletIndications: hours as needed for Prolonged Acute severe pain or score Pain/Traumatic Injury 7-10 of 10 Indication: Prolonged Acute Pain/Traumatic Injury. documented as of this encounter Progress Notes Bethany Natarajan M.D. - 06/11/2020 11:30 AM CDT ATTESTATION FOR FOLLOW-UP VISIT ?? I saw and evaluated the patient and participated in the gregory portions of the service as noted below. I reviewed the documentation of Ms. Deedee Fry RN and agree with the findings and plan. The patient appears well on exam. ??We looked at the left lower leg region. This is looking a lot better. Thereis less desquamation superiorly. It does not appear infected. He has Telfa over the leg. He still has moist desquamation on the bottom half. We did not look at his groins today at his request. ?? He will continue with his skin care. He is still having significant pain, so we refilled his Hydrocodone. We will see him now approximately 3 months after completion of his radiation. He knows to contact us if he wants us to look at his healing again. I think he will make more progress over the next 2-4 weeks. His questions were answered; he was comfortable with this plan. Bethany Natarajan M.D., 06/11/20 SUBJECTIVVE DIAGNOSIS #1 Non-melanomatous skin cancers, s/p biopsy [...] being seen today in a follow up visit. His oncologic history is as follows: 1. [...] today with Dr. Natarajan. The patient reports that he feels his skin has started to heal more so. He is completed warm water soaks to the right inguinal region and to the left lower extremity, then air dry and then Aquaphor application. He also applies Telfa after Aquaphor application to the left lower extremity. He notes thathis headache is mild and intermittent. He does rate his pain to the left lower leg at a 8 out of 10.He takes 1 Warren in the morning and 1 at bedtime. He is taking 4 Ibuprofen in the morning, 1 at lunch time, 2 in the late afternoon, 1 with dinner and 1 at bedtime. He denies fevers, chills, diarrhea, hematuria, rectal bleeding, dysuria or changes in urination or cough. He is smoking 9 cigars a day. Patient does report acute right eye mattering recently. REVIEW OF SYSTEMS Review of systems was negative except as documented above. PATIENT REPORTED SYMPTOM SCREEN FATIGUE (Scale: 0 = no fatigue; 10 = worst fatigue you can imagine): 0 PAIN (Scale: 0 = no pain; 10 = worst pain you can imagine): 8 OVERALL QUALITY OF LIFE (Scale: 0 = as bad as can be; 10 = as good as can be): 10 OBJECTIVE BP 143/85 (BP Location: Left arm, Patient Position: Sitting, Cuff Size: Large) Pulse 63 Temp 36.6 ??C (Temporal) Wt 95 kg PHYSICAL EXAM General: Patient is awake, alert, and oriented to person, place, and time. No apparent distress. Skin: dry desquamation to the upper aspect of the left lower extremity and moist desquamation to themid left lower extremity as well as minimal erythema. Patient declined assessment of right inguinal region today. ASSESSMENT / PLAN #1?Multiple non-melanomatous skin cancers, [...] lesions #5 Left testicular swelling, US negative Patient is to continue with his current skin care routine. Patient can stop wet soaks and Telfa application once moist desquamation resolves in the coming weeks. We will send through prescription refill on his Warren to his preferred pharmacy today. Patient is to not exceed 3200 mg of Ibuprofen a day. We encouraged patient to trial warm compresses for acute right eye mattering. We will send through referral to [facility]. We will see Mr. Tl Lugo in a follow-up visit in late July. The patient was told to contact us sooner with questions or concerns. He verbally expressed his understanding of the plan. Signed by: Deedee Fry R.N. 06/11/2020 1:09 PM CDT [facility] [address] [place] [address] documented in this encounter Plan of Treatment Scheduled Referrals Name Type Priority Associated Order Schedule Diagnoses Radiation Oncology Outpatient Referral Routine On ce for 1 office visit Occurrences sta rting (clinic) 06/11/2020 unti l 06/11/2020 documented as of this encounter Visit Diagnoses Diagnosis Red Eye - Primary documented in this encounter
--- OUTSIDE RECORDS SUMMARY | 2021-10-01 06:25 | XMS_ITS | Encounter Summary ---
:1940 Author Organization [facility] Address [address] [place] [address] Care Team Providers Name Role Phone Unavailable Primary Care Provider Unavailable Encounter Details Date Type Department Care Team Description 07/10/2020 Clinical Communication Department of Bethany Natarajan Radiation Oncology in [facility] [address] [facility] [address] [place] [phone] Social History Tobacco Use Types Packs/Day Years Used Date Smoking Tobacco: Every Day Sex Assigned at Date Recorded Not on file documented as of this encounter Miscellaneous Notes Telephone Encounter - Elif Parkinson - 07/10/2020 8:50 AM CDT Caller: Tl Is there a valid authorization to speak with caller? Yes Primary Radiation Oncologist: Dr. Natarajan Reason for call: Patient called regarding his pain medication prescription. I informed him that someone did try to call him back yesterday but did not get an answer. I also informed him that a prescription for the [place] has been sent to the [facility] in [place]. Phone number: [phone] Is it okay to leave a voicemail on answering machine with test results? Yes Pharmacy (if medication related): N/A Elif Parkinson documented in this encounter Plan of Treatment Not on filedocumented as of this encounter Visit Diagnoses Not on filedocumented in this encounter
--- OUTSIDE RECORDS SUMMARY | 2021-10-01 06:25 | XMS_ITS | Clinical Summary ---
:1940 Author Organization [facility] Address [address] [place] [address] Care Team Providers Name Role Phone Unavailable Primary Care Provider Unavailable Source Comments Patient records contain information from all sites at [facility]. For routine questions regarding patient records, call [phone] during business hours, M-F 8:00 AM - 5:00 PM Central Time. Record requests for emergency care only can be directed to [phone] at any time.[facility] Allergies Active Allergy Reactions Severity Noted Date Comments Latex Rash 04/16/2020 Medications Medication Sig Dispensed Refills Start Date End Date Status furosemide (LASIX) 20 2 (two) times a 0 04/12/2020 Active mg tablet day. gabapentin (NEURONTIN) Take 600 mg by 0 04/16/2014 Active 300 mg capsule mouth 3 (three) times a day. warfarin (COUMADIN) 4 Take one-half 0 01/17/2020 Active mg tablet tablet --. Take a full tablet all other days atorvastatin (LIPITOR) Take 80 mg by 0 04/16/2014 Active 80 mg tablet mouth. aspirin [address] Take 81 mg by 0 Active tablet mouth daily. ibuprofen Take 200 mg by 0 Activ e (ADVIL,MOTRIN) 200 mg mouth every 6 tablet (six) hours as needed for pain. UNABLE TO FIND 200 each. 0 Activ e Ibuprofen PM 200/38 HYDROcodone-acetaminop Take 1 tablet by 20 tablet 0 08/08/2020 Active hen (NORCO) 5-325 mg mouth every 6 per tabletIndications: (six) hours as Prolonged Acute needed for severe Pain/Traumatic Injury pain or score 7-10 of 10 Indication: Prolonged Acute Pain/Traumatic Injury. 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 04/10/2020 Social History Tobacco Use Types Packs/Day Years Used Date Smoking Tobacco: Every Day Sex Assigned at Date Recorded Not on file Last Filed Vital Signs Vital Sign Reading [...] - - Body Mass Index - - Plan of Treatment Health Maintenance Due Date Last Done Comments Creatinine Level 1940 Hepatitis C Screening 1940 Potassium Level 1940 Sodium Level 1940 Tobacco Cessation counseling 1940 Zoster Vaccines (1 of 2) 1961 Depression Screening (Annual 02/22/2021 PHQ-2) Fall Risk Screen (Annual) 02/22/2021 COVID-19 Vaccine (5 - Booster for 11/01/2021 07/01/2021, , Moderna series) 05/09/2020, Additional history exists Influenza Vaccine (#1) 2021 DTaP,Tdap,and Td Vaccines (3 - Td 01/02/2030 01/03/2020, or Tdap) Pneumococcal vaccine (65+ years) Completed 08/22/2014, 10/2009 Insurance Payer Benefit Plan / Subscriber ID Effective Dates Phone Addre ss Type Group [facility] [id number] 2021-Present [phone] [address] [place] [address]
--- OUTSIDE RECORDS SUMMARY | 2021-10-01 06:25 | XMS_ITS | Encounter Summary ---
:1940 Author Organization [facility] Address [address] [place] [address] Care Team Providers Name Role Phone Unavailable Primary Care Provider Unavailable Reason for Referral Specialty Diagnoses / Procedures Referred By Contact Refer red To Contact Dona Zuniga M.D. [facility] Region [address] [place] [address] Referral ID Status Reason Start Date Expiration Date Visits Requ ested Visits Authorized Encounter Details Date Type Department Care Team Description 11/01/2020 Orders Only [facility] Sa greyson Zuniga M.D. [address] [place] [address] [phone] (Wo rk) Social History Tobacco Use Types Packs/Day Years Used Date Smoking Tobacco: Every Day Sex Assigned at Date Recorded Not on file documented as of this encounter Plan of Treatment Scheduled Referrals Name Type Priority Associated Order Schedule Diagnoses Covid immunization Outpatient Referral Routine Ex pected: office visit Booster 021 (Approximate), Expires: 11/01/2021 documented as of this encounter Visit Diagnoses Not on filedocumented in this encounter
--- OUTSIDE RECORDS SUMMARY | 2021-10-01 06:25 | XMS_ITS | Encounter Summary ---
:1940 Author Organization [facility] Address [address] [place] [address] Care Team Providers Name Role Phone Unavailable Primary Care Provider Unavailable Reason for Visit Reason Comments Med Refill Encounter Details Date Type Department Care Team Description 08/08/2020 Clinical Communication Department of Travis Hall Refjoanne Radiation Oncology in [facility] [place] [address] [place] [phone] Social History Tobacco Use Types Packs/Day Years Used Date Smoking Tobacco: Every Day Sex Assigned at Date Recorded Not on file documented as of this encounter Miscellaneous Notes Telephone Encounter - Deedee Fry R.N. - 08/08/2020 1:06 PM CDT Information Discussed I called and left voicemail on patient's phone requesting call back. Patient reported that he was taking Breda twice a day at his last in office visit with us. PLAN Dr. Natarajan and I will send through refill on Breda to get him through until August 16, 2020, when he is scheduled for follow up with Dr. Natarajan in [place]. Disposition/Recommendation: I requested call back, refill will be sent to patient's pharmacy today Information/Education: not applicable Caller agreeable to plan of care: unable to reach patient at this time The following references were used: nursing clinical judgement and provider Dr. Natarajna Telephone Encounter - Paula Hall - 08/08/2020 12:28 PM CDT Caller: Tl Is there a valid authorization to speak with caller? Yes Primary Radiation Oncologist: Dr. Natarajan Reason for call: Would like to see if we could refill his hydrocodone and would like a phone call toknow if it can be done or not Phone number: [phone] Is it okay to leave a voicemail on answering machine with test results? Yes Pharmacy (if medication related): [facility] [address] [place] [id number] Paula Hall documented in this encounter Plan of Treatment Not on filedocumented as of this encounter Visit Diagnoses Not on filedocumented in this encounter
--- OUTSIDE RECORDS SUMMARY | 2021-10-01 06:25 | XMS_ITS ---
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 Past Plans No past plan information found. Radiation Treatments Plan Last Treated Elapsed Days Fractions Prescribed Prescribed Total On Treated Fraction Dose Dose F1_LT Leg 05/15/2020 21 15 of 15 300 cGy 4,500 cGy F1_RTInguin 05/06/2020 12 9 of 10 425 cGy 4,250 cGy al F1_LTInguin 04/26/2020 2 3 of 5 700 cGy 3,500 cGy al Reference Point Last Treated On Elapsed Days Session Dose Total Dos e [id number] 05/15/2020 21 300 cGy 4,500 cGy [id number] 05/06/2020 12 425 cGy 3,825 cGy [id number] 04/26/2020 2 700 cGy 2,100 cGy
--- OUTSIDE RECORDS SUMMARY | 2021-10-01 06:26 | XMS_ITS | Encounter Summary ---
:1940 Author Organization 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 [facility] Procedures Management Visit [address] [place], [place] [phone] Referral ID Status Reason Start Date Expiration Date Visits V isits Requested Authorized [id number] Canceled 04/10/2020 04/10/2021 5 5 Encounter Details Date Type Department Care Team Description 04/26/2020 Hospital Encounter Department of Bethany Natarajan Neoplasm Of Lower Limb Basal Cell Carcinoma Left; Radiation Oncology [facility] 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; in [place], [address] [place] [address] Malignant Neoplasm Of Lower Limb Basal C ell Carcinoma Right [place], [place] [address] [facility] [address] [place], [place] [phone] (Work) [phone] Social History Tobacco Use Types Packs/Day Years Used Date Smoking Tobacco: Every Day Sex Assigned at Date Recorded Not on file documented as of this encounter Last Filed Vital Signs Vital Sign Reading Time Taken Comments Blood Pressure 156/86 04/26/2020 2:31 PM CLINICAL FACULTY Pulse 92 04/26/2020 2:31 PM CLINICAL FACULTY Temperature 36.9 ??C (98.5 ??F) 04/26/2020 2:31 PM CLINICAL FACULTY Respiratory Rate - - Oxygen Saturation - - Inhaled Oxygen Concentration - - Weight 95.5 kg (210 lb 8.6 oz) 04/26/2020 2:31 PM CLINICAL FACULTY Height - - Body Mass Index - - documented in this encounter Medications at Time of Discharge Medication Sig Dispensed Refills Start Date End Date aspirin [address] tablet Take 81 mg by mouth 0 daily. atorvastatin (LIPITOR) 80 Take 80 mg by mouth. 0 04/16/2014 mg tablet furosemide (LASIX) 20 mg 2 (two) times a day. 0 0 04/12/2020 tablet gabapentin (NEURONTIN) Take 600 mg by mouth 3 0 0 04/16/2014 300 mg capsule (three) times a day. ibuprofen (ADVIL,MOTRIN) Take 200 mg by mouth 0 200 mg tablet every 6 (six) hours as needed for pain. UNABLE TO FIND 200 each. Ibuprofen PM 0 200/38 warfarin (COUMADIN) 4 mg Take one-half tablet 0 1 03/18/2019 tablet M-W-F. Take a full tablet all other days documented as of this encounter Progress Notes Bethany Natarajan M.D. - 04/26/2020 2:45 PM CST SUBJECTIVE REASON FOR VISIT Evaluation for side effects while receiving radiation treatment for 1. 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 Malignant Neoplasm Of Lower Limb Basal Cell Carcinoma Right SUPERVISED BY: Bethany Natarajan M.D. HISTORY OF PRESENT ILLNESS Mr. Tl Lugo is a 79 y.o. male with multiple prior non-melanomatous skin cancers. He is now receiving radiation therapy to the right and left inguinal area and left leg lesion. Treatment Course: 1x RLingu_LLeg Plan ID Fractions Dose / Fraction (cGy) Dose Treated (cGy) Dose Planned (cGy) First Treatment Last Treatment Elapsed Days F1_LTInguinal 700 1400 3500 04/24/2020 04/25/2020 1 F1_RTInguinal 098 709 1855 04/24/2020 04/25/2020 1 F1_LT Leg 967 466 4322 04/24/2020 04/25/2020 1 Course Summary 04/24/2020 04/25/2020 1 The patient was seen and examined today with Dr. Natarajan. The patient reports that he is doing well overall. He rates his headache pain at a 4 out of 10. He is not taking pain medications. He describes feeling needles to the treatment areas after first treatment but none since. He denies urinary or bowel changes, fevers, chills, hematuria, rectal bleeding orskin changes. He is applying lotion to all 3 treatment areas. PATIENT REPORTED SYMPTOM SCREEN FATIGUE (Scale: 0 = no fatigue; 10 = worst fatigue you can imagine): 4 PAIN (Scale: 0 = no pain; 10 = worst pain you can imagine): 4 OVERALL QUALITY OF LIFE (Scale: 0 = as bad as can be; 10 = as good as can be): OBJECTIVE BP 156/86 (BP Location: Left arm, Patient Position: Sitting, Cuff Size: Large) Pulse 92 Temp 36.9 ??C (Temporal) Wt 95.5 kg PHYSICAL EXAM General: Alert and oriented in no apparent distress. ASSESSMENT / PLAN #1 Multiple non-melanomatous skin cancers, s/p biopsy (right and left groin) and left lower leg #2 Satellite lesions around the left lower leg squamous cell carcinoma #3 Other suspicious appearing lesion on his left anterior chest (X2), left forearm and with in the skin folds of his right leg stump #4 Radiotherapy to the right inguinal, left inguinal and left leg lesion initiated on April 24, 2020;anticipated date of completion to the left inguinal is on April 30, 2020; anticipated date of completion to the right inguinal is on May 07, 2020; anticipated date of completion on May 14, 2020 The patient is tolerating radiation treatment well overall. Patient will continue to apply lotion tothe treatment field areas. He will contact us with any questions or concerns. We will continue with radiation treatment as planned. Signed by: Deedee Fry R.N. 04/26/2020 2:54 PM CLINICAL FACULTY ATTESTATION FOR MANAGEMENT VISIT I saw and evaluated the patient and participated in the gregory portions of the service as noted above. I reviewed the documentation of Ms. Deedee Fry RN and agree with the findings and plan. The patient appears well on exam. We will continue with radiation as planned and monitor weekly. Bethany Natarajan M.D., 04/26/2020 ICAL FACULTY documented in this encounter Plan of Treatment Scheduled Orders Name Type Priority Associated Diagnoses Order S chedule Management Visit Radiation Oncology Routine Malignant Neoplasm Once for 1 Of Lower Limb Basal Occurren renetta starting Cell Carcinoma L eft 04/26/2020 until Malignant Neoplasm 1 Of Lower Limb Squamous Cell Carcinoma Left Malignant Neoplasm Of Lower Limb Basal Cell Carcinoma Right documented as of this encounter Visit Diagnoses Diagnosis 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
--- OUTSIDE RECORDS SUMMARY | 2021-10-01 06:26 | XMS_ITS | Encounter Summary ---
:1940 Author Organization [facility] Address [address] [place] [address] Care Team Providers Name Role Phone Unavailable Primary Care Provider Unavailable Encounter Details Date Type Department Care Team Description 04/16/2020 Ancillary Procedure Department of Oncology Social History Tobacco Use Types Packs/Day Years Used Date Smoking Tobacco: Every Day Sex Assigned at Date Recorded Not on file documented as of this encounter Plan of Treatment Not on filedocumented as of this encounter Procedures Procedure Name Priority Date/Time Associated Diagnosis Comme nts ONCOLOGY IMAGE EXAM Routine 04/16/2020 1:25 PM Re sults for this SHEET METAL SUPERVISOR procedure are i n the results section. documented in this encounter Results Pelvis-Oncology Image Exam (04/16/2020 1:25 PM SHEET METAL SUPERVISOR) Specimen (Source) Anatomical Collection Method Collection Time Re ceived Time Location / / Volume Laterality 04/16/2020 1:25 PM SHEET METAL SUPERVISOR Narrative [facility] - 04/16/2020 1:28 PM SHEET METAL SUPERVISOR This order has been created and auto-finalized to support the import of images acquired without order. The clini arash documentation to support these images can be found on the encounter monika t produced images. Provider Not In System IMG NON RAD IMAGING PROCEDUR ES Performing Organization Address City/State/ZIP Code Phon e Number [facility] NA documented in this encounter Visit Diagnoses Not on filedocumented in this encounter
--- OUTSIDE RECORDS SUMMARY | 2021-10-01 06:26 | XMS_ITS | Encounter Summary ---
:1940 Author Organization [facility] Address [address] [place] [address] Care Team Providers Name Role Phone Unavailable [...] Comme nts ONCOLOGY IMAGE EXAM Routine 04/16/2020 1:28 PM Re sults for this HASH SLINGER procedure are i n the results section. documented in this encounter Results Leg-Oncology Image Exam (04/16/2020 1:28 PM HASH SLINGER) Specimen (Source) Anatomical Collection Method Collection Time Re ceived Time Location / / Volume Laterality 04/16/2020 1:25 PM HASH SLINGER Narrative [facility] - 04/16/2020 1:28 PM HASH SLINGER This order has been created and auto-finalized [...]
--- OUTSIDE RECORDS SUMMARY | 2021-10-01 06:26 | XMS_ITS | Encounter Summary ---
:1940 Author Organization [facility] Address [address] [place] [address] Care Team Providers Name Role Phone Unavailable Primary Care Provider Unavailable Encounter Details Date Type Department Care Team Description 02/12/2017 Telemedicine Department of Dermatology Social History Tobacco Use Types Packs/Day Years Used Date Smoking Tobacco: Never Assessed Sex Assigned at Date Recorded Not on file documented as of this encounter Plan of Treatment Not on filedocumented as of this encounter Procedures Procedure Name Priority Date/Time Associated Comments Diagnosis DERMATOLOGY IMAGE Routine 02/12/2017 12:30 Result s for this EXAM PM TEA BAG PACKER procedure are i n the results section. documented in this encounter Results DERMATOLOGY IMAGE EXAM (02/12/2017 12:30 PM TEA BAG PACKER) Specimen (Source) Anatomical Collection Method Collection Time Re ceived Time Location / / Volume Laterality 02/12/2017 12:00 PM TEA BAG PACKER Narrative [facility] - 02/12/2017 2:50 PM TEA BAG PACKER This order has been created and auto-finalized [...]
--- OUTSIDE RECORDS SUMMARY | 2021-10-01 06:26 | XMS_ITS | Encounter Summary ---
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 [facility] Procedures Management Visit [address] [place], [place] [phone] Referral ID Status Reason Start Date Expiration Date Visits V isits Requested Authorized [id number] Canceled 04/10/2020 04/10/2021 5 5 Encounter Details Date Type Department Care Team Description 05/01/2020 Hospital Encounter Department of Bethany Natarajan 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; in [place], [facility] Malignant Neoplasm Of Lower Limb Basal C ell Carcinoma Right [place], [place] [address] [facility] [address] [place], [place] [phone] (Work) [phone] Social History Tobacco Use Types Packs/Day Years Used Date Smoking Tobacco: Every Day Sex Assigned at Date Recorded Not on file documented as of this encounter Last Filed Vital Signs Vital Sign Reading Time Taken Comments Blood Pressure 148/82 05/01/2020 1:55 PM COMMERCIAL LINES ACCOUNT ASSISTANT Pulse 86 05/01/2020 1:55 PM COMMERCIAL LINES ACCOUNT ASSISTANT Temperature 36.3 ??C (97.3 ??F) 05/01/2020 1:55 PM COMMERCIAL LINES ACCOUNT ASSISTANT Respiratory Rate - - Oxygen Saturation - [...] documented as of this encounter Progress Notes Quynh Moreno P.A.-Lawson., M.S. - 05/01/2020 1:45 PM CST SUBJECTIVE REASON FOR VISIT Evaluation for side effects while receiving radiation treatment for 1. 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 Malignant Neoplasm Of Lower Limb Basal Cell Carcinoma Right SUPERVISED BY: Bethany Natarajan M.D. HISTORY OF PRESENT ILLNESS Mr. Tl Lugo is a 79-year-old male with non-melanomatous skin cancers. Treatment Course: 1x RLingu_LLeg Plan ID Fractions Dose / Fraction (cGy) Dose Treated (cGy) Dose Planned (cGy) First Treatment Last Treatment Elapsed Days F1_LTInguinal 700 3500 3500 04/24/2020 05/01/2020 2 F1_RTInguinal 425 2550 4250 04/24/2020 05/01/2020 2 F1_LT Leg 300 1800 4500 04/24/2020 05/01/2020 2 Course Summary 04/24/2020 05/01/2020 2 The patient was seen and examined today with Dr. Natarajan. The patient reports doing well with treatment overall. He reports that he experienced diarrhea afterthe first treatment, but this has not re-occurred. He denies redness of the skin within the areas oftreatment. He is applying Aveda lotion. He denies pain to the sites of treatment. He reports good energy levels. PATIENT REPORTED SYMPTOM SCREEN FATIGUE (Scale: 0 = no fatigue; 10 = worst fatigue you can imagine): 0 PAIN (Scale: 0 = no pain; 10 = worst pain you can imagine): 4 OVERALL QUALITY OF LIFE (Scale: 0 = as bad as can be; 10 = as good as can be): 4 OBJECTIVE BP 148/82 (BP Location: Left arm, Patient Position: Sitting, Cuff Size: Large) Pulse 86 Temp 36.3 ??C (Temporal) PHYSICAL EXAM General: Alert and oriented in no apparent distress. ASSESSMENT / PLAN #1?Multiple non-melanomatous skin cancers, [...] left leg lesion initiated on April 24, 2020;date of completion to the left inguinal on April 30, 2020; anticipated date of completion to the right inguinal is on May 07, 2020; anticipated date of completion on May 14, 2020 The patient is tolerating radiation treatment well overall. He is not experiencing side effects fromtreatment at this time. He will continue with lotion application to the areas of treatment. He was asked to monitor for skin changes of the areas and to contact us with any questions or concerns. He will continue with radiation treatment as planned. Signed by: Qyunh Moreno P.A.-C. M.SJhon 05/01/2020 2:25 PM COMMERCIAL LINES ACCOUNT ASSISTANT ERCIAL LINES ACCOUNT ASSISTANT Associated attestation - Bethany Natarajan M.D. - 05/01/2020 4:43 PM COMMERCIAL LINES ACCOUNT ASSISTANT I saw and evaluated the patient and participated in the gregory portions of the service. I reviewed the documentation of Ms. Quynh Moreno PA-C, MS and agree with the findings and plan. The patient appears well on exam. We will continue with radiation as planned and monitor weekly. Bethnay Natarajan M.D., 05/01/2020 documented in this encounter Plan of Treatment Scheduled Orders Name Type Priority Associated Diagnoses Order S chedule Management Visit Radiation Oncology Routine Malignant Neoplasm Once for 1 Of Lower Limb Basal Occurren renetta starting Cell Carcinoma L eft 05/01/2020 until Malignant Neoplasm 1 Of Lower Limb [...]
--- OUTSIDE RECORDS SUMMARY | 2021-10-01 06:26 | XMS_ITS | Encounter Summary ---
:1940 Author Organization [facility] Address [address] [place] [address] Care Team Providers Name Role Phone Unavailable Primary Care Provider Unavailable Reason for Referral Specialty Diagnoses / Procedures Referred By Contact Refer red To Contact Bethany Natarajan M.D. [facility] Region [address] [place] [phone] Referral ID Status Reason Start Date Expiration Date Visits Requ ested Visits Authorized AIDE Encounter Details Date Type Department Care Team Description 04/30/2020 - Hospital Encounter Department of Aramis Natarajan M.D. 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 documented as of this encounter Plan of Treatment Scheduled Referrals Name Type Priority Associated Order Schedule Diagnoses Radiation Oncology Outpatient Referral Routine Malignant Neopl asm Once for 1 - Nurse education Of Lower Limb Basal Occ urrences starting visit (clinic) Cell Carcinoma L eft 04/30/2020 until Malignant Neoplasm 1 Of Lower Limb [...]
--- OUTSIDE RECORDS SUMMARY | 2021-10-01 06:26 | XMS_ITS | Encounter Summary ---
:1940 Author Organization 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 [facility] Procedures Prior Auth Rad Tx [place] IMRT COMPLEX [address] [place] [address] Referral ID Status Reason Start Date Expiration Date Visits Requ ested Visits Authorized [id number] Closed 04/16/2020 04/16/2021 15 15 Encounter Details Date Type Department Care Team Description 05/09/2020 Hospital Encounter Department of Radiation Shaneka Natarajan I., Oncology in [place] [address] [facility] [address] [place] [phone] Social History Tobacco Use Types Packs/Day Years [...] Take one-half tablet 0 1 03/18/2019 tablet M-W-. Take a full tablet all other days HYDROcodone-acetaminophe Take 1 tablet by 30 tablet 0 05/0805/15/2020 n (NORCO) 5-325 mg per mouth every 6 (six) tabletIndications: hours as needed for Prolonged Acute severe pain or score Pain/Traumatic Injury 7-10 of 10 Indication: Prolonged Acute Pain/Traumatic Injury. documented as of this encounter Plan of Treatment Not on filedocumented as of this encounter Visit Diagnoses Not on filedocumented in this encounter
--- OUTSIDE RECORDS SUMMARY | 2021-10-01 06:26 | XMS_ITS | Encounter Summary ---
:1940 Author Organization [facility] Address [address] [place] [address] Care Team Providers Name Role Phone Unavailable [...] Associated Comments Diagnosis DERMATOLOGY IMAGE Routine 02/12/2017 12:05 Result s for this EXAM PM CLIENT SERVICE SUPERVISOR procedure are i n the results section. documented in this encounter Results DERMATOLOGY IMAGE EXAM (02/12/2017 12:05 PM CLIENT SERVICE SUPERVISOR) Specimen (Source) Anatomical Collection Method Collection Time Re ceived Time Location / / Volume Laterality 02/12/2017 12:00 PM CLIENT SERVICE SUPERVISOR Narrative [facility] - 02/12/2017 2:49 PM CLIENT SERVICE SUPERVISOR This order has been created and [...]
--- OUTSIDE RECORDS SUMMARY | 2021-10-01 06:26 | XMS_ITS | Encounter Summary ---
:1940 Author Organization [facility] Address [address] [place] [address] Care Team Providers Name Role Phone Unavailable [...] Associated Comments Diagnosis DERMATOLOGY IMAGE Routine 02/12/2017 12:35 Result s for this EXAM PM LICENSED PHARMACIST procedure are i n the results section. documented in this encounter Results DERMATOLOGY IMAGE EXAM (02/12/2017 12:35 PM LICENSED PHARMACIST) Specimen (Source) Anatomical Collection Method Collection Time Re ceived Time Location / / Volume Laterality 02/12/2017 12:00 PM LICENSED PHARMACIST Narrative [facility] - 02/12/2017 2:50 PM LICENSED PHARMACIST This order has been created and auto-finalized [...]
--- OUTSIDE RECORDS SUMMARY | 2021-10-01 06:26 | XMS_ITS | Encounter Summary ---
:1940 Author Organization [facility] Address [address] [place] [address] Care Team Providers Name Role Phone Unavailable [...] Associated Comments Diagnosis DERMATOLOGY IMAGE Routine 02/12/2017 12:00 Result s for this EXAM PM QUALITY CONTROL ENGINEERING TECHNICIAN procedure are i n the results section. documented in this encounter Results DERMATOLOGY IMAGE EXAM (02/12/2017 12:00 PM QUALITY CONTROL ENGINEERING TECHNICIAN) Specimen (Source) Anatomical Collection Method Collection Time Re ceived Time Location / / Volume Laterality 02/12/2017 12:00 PM QUALITY CONTROL ENGINEERING TECHNICIAN Narrative [facility] - 02/12/2017 2:49 PM QUALITY CONTROL ENGINEERING TECHNICIAN This order has been created and auto-finalized [...]
--- OUTSIDE RECORDS SUMMARY | 2021-10-01 06:26 | XMS_ITS | Encounter Summary ---
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 [facility] Procedures Prior Auth Rad Tx [place] IMRT COMPLEX [address] [place] [address] Referral ID Status Reason Start Date Expiration Date Visits Requ ested Visits Authorized [id number] Closed 04/16/2020 04/16/2021 15 15 Encounter Details Date Type Department Care Team Description 05/13/2020 Hospital Encounter Department of Radiation Shaneka Natarajan I., Oncology in [place] [address] [facility] [address] [place] [phone] Social History Tobacco Use Types Packs/Day Years [...]
--- OUTSIDE RECORDS SUMMARY | 2021-10-01 06:26 | XMS_ITS | Encounter Summary ---
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 [facility] Procedures Prior Auth Rad Tx [place] IMRT COMPLEX [address] [place] [address] Referral ID Status Reason Start Date Expiration Date Visits Requ ested Visits Authorized [id number] Closed 04/16/2020 04/16/2021 15 15 Encounter Details Date Type Department Care Team Description 05/03/2020 Hospital Encounter Department of Radiation Shaneka Natarajan I., Oncology [place] [address] [facility] [address] [place] [phone] Social History Tobacco Use Types Packs/Day Years [...] other days documented as of this encounter Plan of Treatment Not on filedocumented as of this encounter Visit Diagnoses Not on filedocumented in this encounter
--- OUTSIDE RECORDS SUMMARY | 2021-10-01 06:26 | XMS_ITS | Encounter Summary ---
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 [facility] Procedures Prior Auth Rad Tx [place] IMRT COMPLEX [address] [place] [address] Referral ID Status Reason Start Date Expiration Date Visits Requ ested Visits Authorized [id number] Closed 04/16/2020 04/16/2021 15 15 Encounter Details Date Type Department Care Team Description 05/01/2020 Hospital Encounter Department of Radiation Shaneka Natarajan I., Oncology in [place], [place] [address] [facility] [address] [place] [phone] Social History Tobacco Use Types Packs/Day Years [...]
--- OUTSIDE RECORDS SUMMARY | 2021-10-01 06:26 | XMS_ITS | Encounter Summary ---
:1940 Author Organization [facility] Address [address] [place] [address] Care Team Providers Name Role Phone Unavailable Primary Care Provider Unavailable Encounter Details Date Type Department Care Team Description 02/12/2017 Hospital Encounter HX RST DERM SURG OP Avni Gaffney [facility] M.D. [address] [place] [address] (Wo rk) Social History Tobacco Use Types Packs/Day Years Used Date Smoking Tobacco: Never Assessed Sex Assigned at Date Recorded Not on file documented as of this encounter Last Filed Vital Signs Vital Sign Reading Time Taken Comments Blood Pressure 141/85 02/12/2017 8:05 AM VICE PRESIDENT COMPLIANCE Vital sign result from Clinical Notes. Pulse 89 02/12/2017 8:05 AM VICE PRESIDENT COMPLIANCE Vital sign result from Clinical Notes. Temperature - - Respiratory Rate - - Oxygen Saturation - - Inhaled Oxygen Concentration - - Weight - - Height - - Body Mass Index - - documented in this encounter Medications at Time of Discharge Medication Sig Dispensed Refills Start Date End Date atorvastatin (LIPITOR) 80 Take 80 mg by mouth. 0 04/16/2014 mg tablet gabapentin (NEURONTIN) 300 Take 600 mg by mouth 0 04/16/2014 mg capsule 3 (three) times a day. documented as of this encounter Plan of Treatment Not on filedocumented as of this encounter Visit Diagnoses Not on filedocumented in this encounter
--- OUTSIDE RECORDS SUMMARY | 2021-10-01 06:26 | XMS_ITS | Encounter Summary ---
:1940 Author Organization [facility] Address [address] [place] [address] Care Team Providers Name Role Phone Unavailable Primary Care Provider Unavailable Encounter Details Date Type Department Care Team Description 01/19/2017 Telemedicine Department of Dermatology Social History Tobacco Use Types Packs/Day Years Used Date Smoking Tobacco: Never Assessed Sex Assigned at Date Recorded Not on file documented as of this encounter Plan of Treatment Not on filedocumented as of this encounter Procedures Procedure Name Priority Date/Time Associated Comments Diagnosis DERMATOLOGY IMAGE Routine 01/19/2017 12:00 Result s for this EXAM PM LAND SURVEYOR procedure are i n the results section. documented in this encounter Results DERMATOLOGY IMAGE EXAM (01/19/2017 12:00 PM LAND SURVEYOR) Specimen (Source) Anatomical Location Collection Method / Collectio n Time Received Time / Laterality Volume Narrative [facility]IMS - 01/19/2017 4:19 PM LAND SURVEYOR This order has been created and auto-finalized [...]
--- OUTSIDE RECORDS SUMMARY | 2021-10-01 06:26 | XMS_ITS | Encounter Summary ---
:1940 Author Organization [facility] Address [address] [place] [address] Care Team Providers Name Role Phone Unavailable Primary Care Provider Unavailable Reason for Referral Outpatient (Routine) - Closed Specialty Diagnoses / Procedures Referred By Contact Refer red To Contact Diagnoses Swelling Testicle Garrison Casas M.D. 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 - 05/08/2020 1:45 PM CDT SUBJECTIVE REASON FOR VISIT Evaluation for side effects while receiving radiation treatment for 1. Swelling Testicle 2. 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 Tl Lugo [...] 05/01/2020 2 Course Summary 04/24/2020 05/01/2020 2 Right amputation stump with bloody discharge. He also has had a painless mass with swelling of his left testicle that is getting worse since January. PATIENT REPORTED SYMPTOM SCREEN FATIGUE (Scale: 0 = no fatigue; 10 = worst fatigue you can imagine): 0 PAIN (Scale: 0 = no pain; 10 = worst pain you can imagine): 2, 7 OVERALL QUALITY OF LIFE (Scale: 0 = as bad as can be; 10 = as good as can be): OBJECTIVE There were no vitals taken for this visit. PHYSICAL EXAM General: Alert and oriented in no apparent distress. Skin: There is an area of moist desquamation in the right inguinal fold measuring approximately 2 x 2 cm. He also has some areas of skin breakdown in the lateral aspect of a fold along his right amputation stump. These can have bloody discharge at times. There is also a 3 x 3 cm area of erythema and dry desquamation in the upper left inguinal fold. Genitalia: Normal circumcised phallus. The right testicle is descended without masses and without pain. The left testicle is notably swollen measuring approximately 5 cm. I cannot palpate a mass that is distinct from the testicle itself and the patient does not have discomfort with exam. ASSESSMENT / PLAN #1?Multiple non-melanomatous skin cancers, [...] date of completion on May 14, 2020 #5 Left testicular swelling with possible mass The patient's pain is poorly controlled on Tylenol 500 mg 3 times daily. We will prescribe hydrocodone 5/325 mg to be taken 1 tablet every 6 hours as needed. He is currently experiencing loose stools, so we will not start him on any stool softeners. For his begin breakdown, he will begin dressing changes. He met with Deedee Fry R.N. to discuss this today. For his testicular swelling, I have ordered a scrotal ultrasound at [facility]. The patient will continue with treatment as planned. Signed by: Garrison Casas M.D. 05/08/2020 2:54 PM CDT [facility] [address] [place] [address] documented in this encounter Plan of Treatment Scheduled Orders Name Type Priority Associated Order Schedule Diagnoses Management Visit Radiation Routine Malignant Once for 1 Oncology Neoplasm Of Lower Occurrence s Limb Basal Cell starting Carcinoma Left 05/08/2020 until Malignant 05/08/2020 Neoplasm Of Lower Limb Squamous Cell Carcinoma Left Malignant Neoplasm Of Lower Limb Basal Cell Carcinoma Right US Scrotum Imaging RAD - Routine Swelling Testicle Expected: (most inpatients 05/08/2020 and all (Approximate), outpatients) Expires: 05/09/2023 documented as of this encounter Visit Diagnoses Diagnosis Swelling Testicle - Primary 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
--- OUTSIDE RECORDS SUMMARY | 2021-10-01 06:26 | XMS_ITS | Encounter Summary ---
:1940 Author Organization [facility] Address [address] [place] [address] Care Team Providers Name Role Phone Unavailable Primary Care Provider Unavailable Reason for Referral Specialty Diagnoses / Procedures Referred By Contact Refer red To Contact Bethany Natarajan M.D. 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; [facility] a [address] [facility] Malignant Neoplasm Of Lower Limb Basal C ell Carcinoma Right [address] [place] [phone] Social History Tobacco Use Types Packs/Day Years Used Date Smoking Tobacco: Every Day Sex Assigned at Date Recorded Not on file documented as of this encounter Plan of Treatment Scheduled Orders Name Type Priority Associated Diagnoses Order S chedule Prior Auth Rad Tx Radiation Oncology Routine Malignant Neoplas m Of Ordered: 04/10/2020 Lower Limb Basal Cell Carcinoma Left Malignant Neoplasm Of Lower Limb Squamous Cell Carcinoma L eft Malignant Neoplasm Of Lower Limb Basal Cell Carcinoma Right Scheduled Referrals Name Type Priority Associated Diagnoses Order S chedule Radiation Oncology Outpatient Referral Routine Malignant Neopl asm Expected: - Nurse education Of Lower Limb Basal visit (clinic) Cell Carcinoma L eft (Approximate), Malignant Neoplasm Expires: Of Lower Limb 04/10/2021 Squamous Cell Carcinoma Left Malignant Neoplasm Of Lower Limb Basal Cell Carcinoma Right documented as of this encounter Results Initial Rad Onc Treatment Planning CT Simulation (04/16/2020 2:00 PM GRAIN PICKER) Specimen (Source) Anatomical Location Collection Method / Collectio n Time Received Time / Laterality Volume Narrative LAYO METZ - 04/16/2020 2:00 PM GRAIN PICKER Coral Alonso RTT ? 04/16/2020 ??4:02 PM Initial Rad Onc Treatment Planning CT Si mulation Date/Time: 04/16/2020 3:57 PM Performed by: Bethany Natarajan M.D. Authorized by: Bethany Natarajan M.D. Bethany Natarajan M.D. 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
--- OUTSIDE RECORDS SUMMARY | 2021-10-01 06:26 | XMS_ITS | Encounter Summary ---
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 [address] [place], [place] [phone] (Work) [phone] Social History Tobacco Use Types Packs/Day Years [...] Occurren renetta starting Cell Carcinoma L eft 05/06/2020 until Malignant Neoplasm 1 Of Lower Limb [...]
--- OUTSIDE RECORDS SUMMARY | 2021-10-01 06:26 | XMS_ITS | Encounter Summary ---
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 [facility] Procedures Prior Auth Rad Tx [place] IMRT COMPLEX [address] [place] [address] Referral ID Status Reason Start Date Expiration Date Visits Requ ested Visits Authorized [id number] Closed 04/16/2020 04/16/2021 15 15 Encounter Details Date Type Department Care Team Description 05/14/2020 Hospital Encounter Department of Radiation Shaneka Natarajan I., [place] [address] [facility] [address] [place] [phone] Social History Tobacco Use Types Packs/Day Years [...]
--- OUTSIDE RECORDS SUMMARY | 2021-10-01 06:26 | XMS_ITS | Encounter Summary ---
:1940 Author Organization [facility] Address [address] [place] [address] Care Team Providers Name Role Phone Unavailable Primary Care Provider Unavailable Encounter Details Date Type Department Care Team Description 05/15/2020 Hospital Encounter Department of Radiation Shaneka Natarajan I., Oncology in [facility] [address] [facility] [address] [place] [phone] Social History Tobacco Use Types Packs/Day Years [...]
--- OUTSIDE RECORDS SUMMARY | 2021-10-01 06:26 | XMS_ITS | Encounter Summary ---
:1940 Author Organization [facility] Address [address] [place] [address] Care Team Providers Name Role Phone Unavailable Primary Care Provider Unavailable Reason for Referral Radiation Therapy (Routine) - Closed Specialty Diagnoses / Procedures Referred By Contact Refer red To Contact Diagnoses 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 [facility] [place] [facility] Procedures Initial Rad Onc Treatment Planning CT Simulation [address] [place], [place] [address] Referral ID Status Reason Start Date Expiration Date Visits Requ ested Visits Authorized [id number] Closed 04/10/2020 04/10/[address] JUDGE Reason for Visit Radiation Therapy (Routine) - Closed Specialty Diagnoses / Procedures Referred By Contact Refer red To Contact Diagnoses 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 [facility] [place] [facility] Procedures Initial Rad Onc Treatment Planning CT Simulation [address] [place], [place] [address] Referral ID Status Reason Start Date Expiration Date Visits Requ ested Visits Authorized [id number] Closed 04/10/2020 04/10/2021 1 1 Encounter Details Date Type Department Care Team Description 04/16/2020 Hospital Encounter Department of Bethany Natarajan Neoplasm Of Lower Limb Basal Cell Carcinoma Left; Radiation Oncology [place] Adhikari 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; in [place], [address] [place] [address] Malignant Neoplasm Of Lower Limb Basal C ell Carcinoma Right [place], [place] [address] [facility] [address] [place], [place] [phone] (Work) [phone] Social History Tobacco Use Types Packs/Day Years [...] other days documented as of this encounter Procedure Notes Coral Alonso RTT - 04/16/2020 2:00 PM CSTAssociated Order(s): Initial Rad Onc Treatment Planning CT Simulation Pre-Procedure Diagnose(s): Malignant Neoplasm Of Lower Limb Basal Cell Carcinoma Left; Malignant Neoplasm Of Lower Limb Squamous Cell Carcinoma Left; Malignant Neoplasm Of Lower Limb Basal Cell Carcinoma Right Post-Procedure Diagnose(s): Malignant Neoplasm Of Lower Limb Basal Cell Carcinoma Left; Malignant Neoplasm Of Lower Limb Squamous Cell Carcinoma Left; Malignant Neoplasm Of Lower Limb Basal Cell Carcinoma Right Initial Rad Onc Treatment Planning CT Simulation Date/Time: 04/16/2020 3:57 PM Performed by: Bethany Natarajan M.D. Authorized by: Bethany Natarajan M.D. Simulation was performed under physician supervision based on physician order in preparation for radiation therapy. Physician was immediately available to provide assistance and direction throughout the procedure. Written consent for treatment was completed or confirmed. The patient was appropriately identified and placed in the treatment position using the necessary immobilization to ensure a reproducible treatment position. Reference dixon were placed to facilitate marking of isocenter. Area scanned:Pelvis and Lower Extremity Contrast used for the simulation procedure: None Patient position:feet first supine Custom immobilization: Vac-vasiliy Motion management: None Bolus: Bolus to be cut first day of tx but not scanned with bolus CT guidance: Following positioning of the patient, a series of slices was obtained to be utilized intreatment planning. CT images were transferred to the Fliqq treatment planning system, after a reference isocenter was determined and marked. Segmentation and treatment planning will take place priorto treatment delivery. Patient set up and imaging was appropriate and completed without incident. Linotypist use:No ILIATION COURT JUDGE documented in this encounter Plan of Treatment Not on filedocumented as of this encounter Procedures Procedure Name Priority Date/Time Associated Comments Diagnosis INITIAL RAD ONC Routine 04/16/2020 2:00 PM Malignant Neoplasm Results for this TREATMENT PLANNING CONCILIATION COURT JUDGE Of Lower Limb Basal pr ocedure are in CT SIMULATION Cell Carcinoma L eft the results Malignant Neoplasm section. Of Lower Limb Squamous Cell Carcinoma Left Malignant Neoplasm Of Lower Limb Basal Cell Carcinoma Right documented in this encounter Results Initial Rad Onc Treatment Planning CT Simulation (04/16/2020 2:[address] JUDGE) Specimen (Source) Anatomical Location Collection Method / Collectio n Time Received Time / Laterality Volume Narrative [facility] - 04/16/2020 2:[address] JUDGE Coral Alonso RTT ? 04/16/2020 ??4:02 PM Initial Rad Onc Treatment Planning CT Si mulation Date/Time: 04/16/2020 3:57 PM Performed by: Bethany Natarajan M.D. Authorized by: Bethany Natarajan M.D. Bethany Natarajan M.D. RADIATION ONCOLOGY ORDERABLE S Performing Organization Address City/State/ZIP Code Phon e Number [place] documented in this encounter Visit Diagnoses Diagnosis 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
--- OUTSIDE RECORDS SUMMARY | 2021-10-01 06:26 | XMS_ITS | Encounter Summary ---
:1940 Author Organization [facility] Address [address] [place] [address] Care Team Providers Name Role Phone Unavailable Primary Care Provider Unavailable Reason for Visit Radiation Therapy (Routine) - Closed Specialty Diagnoses / Procedures Referred By Contact Refer red To Contact Diagnoses Malignant Neoplasm Of Lower Limb Squamous Cell Carcinoma Left Bethany Natarajan M.D. [facility] Procedures Prior Auth Rad Tx [place] IMRT COMPLEX [address] [place] [address] Referral ID Status Reason Start Date Expiration Date Visits Requ ested Visits Authorized [id number] Closed 04/16/2020 04/16/2021 15 15 Encounter Details Date Type Department Care Team Description 04/29/2020 Hospital Encounter Department of Radiation Shaneka Natarajan I., Oncology in [place], [place] [address] [facility] [address] [place] [phone] Social History Tobacco Use Types Packs/Day Years [...]
--- OUTSIDE RECORDS SUMMARY | 2021-10-01 06:26 | XMS_ITS | Encounter Summary ---
:1940 Author Organization [facility] Address [address] [place] [address] Care Team Providers Name Role Phone Unavailable [...] Associated Comments Diagnosis DERMATOLOGY IMAGE Routine 02/12/2017 12:25 Result s for this EXAM PM [employer]IC[employer]CTOR PACKAGES PLATEMAKER procedure are i n the results section. documented in this encounter Results DERMATOLOGY IMAGE EXAM (02/12/2017 12:25 PM SEMICONDUCTOR PACKAGES PLATEMAKER) Specimen (Source) Anatomical Collection Method Collection Time Re ceived Time Location / / Volume Laterality 02/12/2017 12:00 PM SEMICOND[employer]CTOR PACKAGES PLATEMAKER Narrative [facility] - 02/12/2017 2:50 PM SEMICONDUCTOR PACKAGES PLATEMAKER This order has been created and auto-finalized [...]
--- OUTSIDE RECORDS SUMMARY | 2021-10-01 06:26 | XMS_ITS | Encounter Summary ---
:[address] [facility] Address [address] [place] [address] Care Team Providers Name Role Phone Unavailable Primary Care Provider Unavailable Reason for Visit Appointment Request (Routine) - Closed Specialty Diagnoses / Procedures Referred By Contact Refer red To Contact Radiation Oncology Diagnoses Malignant Neoplasm Of Skin Basal Cell Carcinoma Malignant Neoplasm Of Skin Squamous Cell Carcinoma Annita Jay M.D. [address], [facility] [address] [place] [address] Referral ID Status Reason Start Date Expiration Date Visits Requ ested Visits Authorized [id number] Closed 03/08/2020 03/08/2021 1 1 Encounter Details Date Type Department Care Team Description 04/16/2020 Hospital Encounter Department of Bethany Natarajan Neoplasm Of Lower Limb Basal Cell Carcinoma Left (Primary Dx); Radiation Oncology Corinne Adhikari Malignant Neoplasm Of Lower Limb Basal C ell Carcinoma Right; in [place], [facility] [address] [facility] [[email or web address]] 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 [place], [place] [address] [facility] [address] [place], [place] [phone] (Work) [phone] Social History Tobacco Use Types Packs/Day Years Used Date Smoking Tobacco: Every Day Sex Assigned at Date Recorded Not on file documented as of this encounter Last Filed Vital Signs Vital Sign Reading Time Taken Comments Blood Pressure 124/76 04/16/2020 12:50 PM PRICING INTERN Pulse 93 04/16/2020 12:50 PM PRICING INTERN Temperature 37.2 ??C (99 ??F) 04/16/2020 12:50 PM PRICING INTERN Respiratory Rate - - Oxygen Saturation - - Inhaled Oxygen Concentration - - Weight 95.5 kg (210 lb 8.6 oz) 04/16/2020 12:50 PM PRICING INTERN Height - - Body Mass Index - [...] TO FIND 200 each. Ibuprofen PM 0 warfarin (COUMADIN) 4 mg Take one-half tablet 0 1 03/18/2019 tablet M-W-F. Take a full tablet all other days documented as of this encounter Consult Notes Bethany Natarajan M.D. - 04/16/2020 1:00 PM CST RADIATION ONCOLOGY CONSULTATION SUBJECTIVE REQUESTING PROVIDER Annita Jay M.D. PRIMARY PROVIDER Dr. Alfredo Starr REASON FOR CONSULT Asked to see patient by Dr. Jay to render an opinion regarding radiation therapy options for his multiple non-melanomatous skin cancers. HISTORY OF PRESENT ILLNESS #1 Non-melanomatous skin cancers, s/p biopsy Mr. Lugo is a 79 year old male with multiple prior non-melanomatous skin cancers mostly treated surgically who now has three lesions that cannot be treated surgically. The patient presents now to discuss radiation options. His oncologic history was reviewed with the patient and is as follows: 1. January 08, 2020: Appointment Dr. Marla Knott for evaluation of non-healing lesion on his left lower leg. The lesion had been present for years and was growing in size. Physical examination of theleft lower extremity demonstrated a 1 cm raised scaly lesion over the tibia that was tender to palpation. There was no surrounding erythema. There were a few other small scaly lesions on the anterior leg that were several mm. He also had a scaly lesion on his left ear. He had two small open areas, onein his pannus and one on his right AKA incision. A 3 mm punch biopsy of the left lower extremity wasperformed. Pathology of the left leg demonstrated invasive squamous cell carcinoma, well differentiated. Perineural invasion was absent. Margin status was positive (peripheral). 2. February 22, 2020: Dermatology consultation with Dr. Annita Jay. The patient reported being previously treated for over 11 basal cell and squamous cell carcinomas. Physical examination demonstrated a 1-1.4 cm verrucous lesion on the left medial pretibial leg. There was a translucent indurated plaque approximately 2.5 cm on the left inferior pannus of the abdomen and a similar eroded lesion almost 2.5 cm in the right inguinal crease. There was a slightly translucent annular 9 mm patch on the anterior scalp line. There was a hypopigmented patch on the left anterior scalp. Biopsies of the left inguinal crease, right inguinal crease, and middle anterior forehead were performed. Dr. Jay felt that the lower leg as well as the inguinal creases had potential complication risks including infection dehiscence and irritation. They discussed radiation treatment in detail and Dr. Jay felt that this was the most viable option for him. For the lesion on the anterior forehead they discussed using Efudex. Pathology of the right groin demonstrated scant fragments of inflamed serum crust. Pathology of the left groin demonstrated basal cell carcinoma, nodular type. Perineural invasion was absent.Margins were positive. Pathology of forehead demonstrated hypertrophic actinic keratosis extending to the base of the biopsy. INTERVAL HISTORY The patient reports that he is doing fair. He states that the left leg lesion has changed where he now notices three lesions around it that are new. He states that the groin lesions ooze a little, but don't hurt. He has noticed two lesion on his chest, 1 on his left forearm and one on his right leg stump. . The patient denies a history of prior radiation therapy. The patient's ECOG performance status is 0. REVIEW OF SYSTEMS Review of systems was negative except as documented above. PATIENT REPORTED SYMPTOM SCREEN FATIGUE (Scale: 0 = no fatigue; 10 = worst fatigue you can imagine): 0 PAIN (Scale: 0 = no pain; 10 = worst pain you can imagine): 6 OVERALL QUALITY OF LIFE (Scale: 0 = as bad as can be; 10 = as good as can be): 10 PAST MEDICAL HISTORY 1. Basal cell carcinoma, left and right groins 2. Squamous cell carcinoma, left postauricular 3. Chronic kidney disease, stage III 4. Cardiomegaly 5. Hypertension 6. Phantom limb pain 7. Coronary artery disease 8. Heterozygous factor V Leiden mutation 9. Cervical spine stenosis, spondylolisthesis, degeneration 10. Atherosclerosis of extremities/peripheral vascular disease 11. History of alcoholism 12. Hyperlipidemia 13. Deep venous thrombosis 14. Chronic left shoulder pain 15. Tobacco abuse 16. Dyslipidemia PAST SURGICAL HISTORY 1. Reverse arthroplasty, left shoulder 2. 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 Right inguinal hernia repair, 2007 4. Left lower extremity bypass surgery 5. Mohs surgery, nose SOCIAL HISTORY He lives in [place], [place]. He lives at [address] in an apartment. He is single. 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 He is mobile with his motorized scooter. He is a current smoker. He does not drink alcohol. FAMILY HISTORY No family history of basal cell carcinoma, squamous cell carcinoma, or melanoma. OBJECTIVE BP 124/76 (BP Location: Left arm, Patient Position: Sitting, Cuff Size: Small) Pulse 93 Temp 37.2 ??C (Temporal) Wt 95.5 kg PHYSICAL EXAM General: Well-developed, well-nourished and in no apparent distress. Heart- Regular rate and rhythm. Lungs- No dullness to percussion and clear to auscultation. Skin - Photos were taken and are available in [facility] after obtaining consent. He has a 1.5 X 1.2 cm raised lesion on his left anterior leg skin. About 7.5cm superior to this is another similar nodular raised lesion about 4-5mm in size. The left groin basal cell carcinoma is about 1 X 1cm. The right groin lesion is more in the inguinal fold by the scrotum and looks more linear. It looks to be about 3cm in length. These are the lesions we are treating. In addition to these he pointed out a red flat lesion on his left anterior superior chest that is about 1cm and a raised appearing lesion that is tender and about 5mm in size just superior to this lesion. I did not take photos of these. He also had melook at two excoriations that are in a fold of his skin on this right lateral stump. I did take a photo of these two lesions. Lymph - no inguinal or left knee adenopathy. Extremities - the right leg is surgically absent. The left leg has some distal pedal edema and general redness. He does not appear infected. DIAGNOSTICS I have reviewed the available imaging, operative and pathology reports as described above. ASSESSMENT / PLAN #1 Multiple non-melanomatous skin cancers, s/p biopsy (right and left groin) and left lower leg #2 Satellite lesions around the left lower leg squamous cell carcinoma #3 Other suspicious appearing lesion on his left anterior chest (X2), left forearm and with in the skin folds of his right leg stump We discussed the findings above and below in this note with the patient. We had a long discussion regarding his skin cancers. We had a cuong, yet compassionate, discussion regarding radiation options for his skin cancers. We discussed that the lesions around the left leg likely represent satellite lesions. I offered to send him back to Dr. Jay to confirm, but he doesn't want to do this. We discussed that this will make the treatment area much larger and I am concerned about marginal failures. We discussed treating the leg in 15 fractions rather than 10 as a result of the much larger treatment field. We discussed treating the left groin lesion in 5 fractions as it is the smallest of all of the lesions. We discussed that the right groin lesion was not biopsy proven, but that Dr. Jay felt it clinically was the same as the left groin. He does not want to go back for another biopsy and wishes to proceed with treatments to this area as well. Given that his area is a little bit longer of a field, I recommended 10 treatments to this area. We also discussed getting a referral back to Dr. Jay to evaluate the right chest lesions (X2) theleft forearm lesion and the right leg stump skin fold lesions. He states that he did not show these to Dr. Jay. I told him that I would not treat these with out a biopsy. I am not even certain as towhether or not these are cancers. He understood. The patient???s clinical and pathologic scenario was reviewed with the patient in detail. The rationale for radiotherapy was reviewed with the patient. The logistics of radiotherapy simulation were reviewed with the patient utilizing the simulation booklet. We discussed treatment planning and potential strategies for minimizing dose to critical structures. The logistics of radiotherapy treatment werereviewed with the patient. Treatments are administered daily Wednesday through Wednesday, with each treatment lasting approximately 10-20 minutes per site, so his treatments could take 1 hour to treat three areas. Our team approach was reviewed with the patient. We discussed the rationale, risks, side effects and adjuvant goals of radiation therapy. We discussed the acute as well as box toe cutter risks, including, but not limited to fatigue, skin erythema,skin break down requiring vinegar soaks and xeroform dressing for weeks/months, wound healing problems shouldhe ever require surgery in these areas in the future, small risks for bone fracture and secondary malignancies. He understood and his questions were answered. He wished to proceed with treatment. We tentatively plan on delivering 4500cGy/4250 cGy/3500cGy in 15, 10, and 5 fractions respectively to the left lower leg, left groin and right groin, respectively starting April 24, 2020. We also discussed COVID-19 screening for asymptomatic patients who are starting radiation therapy. We are requiring nasal swab of our patients prior to initiating therapy. This test need to be performed before treatment begins. He understood and this will be arranged. My thanks to Janet and Ro for the opportunity to participate in this patient's care. ADDENDUM I subsequently spoke with Dr. Jay. I explained my concerns about the satellite nodules on the left lower extremity and the concerns about not healing well after radiation therapy. He might call the patient to have him consider systemic therapy first. I could defer radiation until he has progressionor if he wouldn't respond to systemic therapy. Dr. Jay knows that we are thinking to start radiation next Wednesday. EDUCATION Ready to learn, no apparent learning barriers were identified; learning preferences include listening. Explained diagnosis and treatment plan; patient expressed understanding of the content. CONSENT Discussed the risks, benefits, alternatives, and the necessity of other members of the healthcare team participating in the procedure. All questions answered and consent given. I personally spent 90 minutes in care of the patient today. Time includes both non face to face and face to face patient care. Signed by: Bethany Natarajan M.D. 04/16/2020 4:52 PM PRICING INTERN Radiation Oncology [facility] [address] [place], [place] [id number] ING INTERN documented in this encounter Miscellaneous Notes Addendum Note - Mame Amezquita - 04/16/2020 1:00 PM PRICING INTERN Encounter addended by: Mame Amezquita on: 04/17/2020 8:34 AM Actions taken: Letter saved ING INTERN documented in this encounter Plan of Treatment Not on filedocumented as of this encounter Visit Diagnoses Diagnosis Malignant Neoplasm Of Lower Limb Basal C ell Carcinoma Left - Primary Malignant Neoplasm Of Lower Limb Basal C ell Carcinoma Right 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
--- OUTSIDE RECORDS SUMMARY | 2021-10-01 06:26 | XMS_ITS | Encounter Summary ---
:1940 Author Organization [facility] Address [address] [place] [address] Care Team Providers Name Role Phone Unavailable [...] Associated Comments Diagnosis DERMATOLOGY IMAGE Routine 02/12/2017 12:10 Result s for this EXAM PM TORCH SHEARER procedure are i n the results section. documented in this encounter Results DERMATOLOGY IMAGE EXAM (02/12/2017 12:10 PM TORCH SHEARER) Specimen (Source) Anatomical Collection Method Collection Time Re ceived Time Location / / Volume Laterality 02/12/2017 12:00 PM TORCH SHEARER Narrative [facility] - 02/12/2017 2:49 PM TORCH SHEARER This order has been created and auto-finalized [...]
--- OUTSIDE RECORDS SUMMARY | 2021-10-01 06:26 | XMS_ITS | Encounter Summary ---
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 [facility] [place] [facility] Procedures Management Visit [address] [place], [place] [phone] Referral ID Status Reason Start Date Expiration Date Visits V isits Requested Authorized [id number] Canceled 04/10/2020 04/10/2021 5 5 Encounter Details Date Type Department Care Team Description 05/07/2020 Hospital Encounter Department of Garrison Casas Neoplasm Of Lower Limb Basal Cell Carcinoma Left; Radiation Oncology Corinne Cabello 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; in [place], [facility] Malignant Neoplasm Of Lower Limb Basal C ell Carcinoma Right [place], [place] [address] [facility] [address] [place], [place] [phone] (Work) [phone] Social History Tobacco Use Types Packs/Day Years Used Date Smoking Tobacco: Every Day Sex Assigned at Date Recorded Not on file documented as of this encounter Last Filed Vital Signs Vital Sign Reading Time Taken Comments Blood Pressure 149/80 05/07/2020 1:50 PM CDT Pulse 95 05/07/2020 1:50 PM CDT Temperature 36.5 ??C (97.7 ??F) 05/07/2020 1:50 PM CDT Respiratory Rate - - Oxygen Saturation - - Inhaled Oxygen Concentration - - Weight 95 kg (209 lb 7 oz) 05/07/2020 1:50 PM CDT Height - - Body Mass Index [...] encounter Progress Notes Garrison Casas M.D. - 05/07/2020 2:00 PM CDT SUBJECTIVE REASON FOR VISIT Evaluation for side effects while receiving radiation treatment for 1. 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 Casas HISTORY OF PRESENT ILLNESS Mr. Tl Lugo [...] was seen and examined today with Dr. Casas. The patient reports doing well with treatment overall. He denies changes in urination or bowel pattern. He reports 2 out of 10 lower pelvic gut ache and 7 out of 10 right inguinal pain. He takes 1-2 tablets of Ibuprofen 4 times a day and he feels this is managing his pain well. He denies fevers or chills. He reports that he started Aquaphor application yesterday to areas of dry skin with in the treatment areas and this is helping. PATIENT REPORTED SYMPTOM SCREEN FATIGUE (Scale: 0 = no fatigue; 10 = worst fatigue you can imagine): 0 PAIN (Scale: 0 = no pain; 10 = worst pain you can imagine): 2, 7 OVERALL QUALITY OF LIFE (Scale: 0 = as bad as can be; 10 = as good as can be): OBJECTIVE BP 149/80 (BP Location: Left arm, Patient Position: Sitting, Cuff Size: Large) Pulse 95 Temp 36.5 ??C (Temporal) Wt 95 kg PHYSICAL EXAM General: Alert and oriented in no apparent distress. Skin: I assessed skin yesterday and two areas of dry desquamation and pink toned to both the right inguinal region and another closer to the left inguinal region. ASSESSMENT / PLAN #1?Multiple non-melanomatous [...] is tolerating radiation treatment well overall. Patient is to continue to apply Aquaphor. I provided patient with Moist Skin Reaction [id number] pamphlet yesterday. I encouraged him to startwhite vinegar soaks to areas of dry desquamation and he plans to start this today. Please refer to Dr. Casas's documentation for further details from today's visit. Patient will be seen in last management visit to reassess next week. He will contact us with any questions or concerns. He will continue with radiation treatment as planned. Signed by: Deedee Fry R.N. 05/07/2020 2:11 PM CDT I saw and evaluated the patient and participated in the gregory portions of the service. I reviewed the documentation of Deedee Fry R.N. and agree with the findings and plan. The patient appears well onexam. He reports a painless mass in his left testicle that is been present since January. He would like for me to evaluate this tomorrow when he has his treatment. I will see him on the treatment machine. He denies any hematuria, dysuria, or urethral discharge. He will continue with treatment as planned. Signed by: Garrison Casas M.D. 05/07/2020 4:51 PM CDT [facility] [address] [place] [address] documented in this encounter Plan of Treatment Scheduled Orders Name Type Priority Associated Diagnoses Order S chedule Management Visit Radiation Oncology Routine Malignant Neoplasm Once for 1 Of Lower Limb Basal Occurren renetta starting Cell Carcinoma L eft 05/07/2020 until Malignant Neoplasm 1 Of Lower Limb [...]
--- OUTSIDE RECORDS SUMMARY | 2021-10-01 06:26 | XMS_ITS | Encounter Summary ---
:1940 Author Organization [facility] Address [address] [place] [address] Care Team Providers Name Role Phone Unavailable Primary Care Provider Unavailable Reason for Referral Outpatient (Routine) - Closed Specialty Diagnoses / Procedures Referred By Contact Refer red To Contact Radiation Oncology Bethany Natarajan [facility] Jason Sun [address] [place] [address] Referral ID Status Reason Start Date Expiration Date Visits Requ ested Visits Authorized [id number] Closed 05/15/2020 05/15/2021 1 1 Scheduling Instructions Deedee first to assess skin Radiation Therapy (Routine) - Canceled Specialty Diagnoses / Procedures Referred By Contact Refer red To Contact Diagnoses 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 [facility] Region Procedures Management Visit [address] [place] [address] Referral ID Status Reason Start Date Expiration Date Visits V isits Requested Authorized [id number] Canceled 04/10/2020 04/10/2021 5 5 Encounter Details Date Type Department Care Team Description 05/15/2020 Hospital Encounter Department of Bethany Natarajan Neoplasm Of Lower Limb Basal Cell Carcinoma Left; Radiation Oncology [place] Adhikari 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; in [place], [address] [facility] Malignant Neoplasm Of Lower Limb Basal C ell Carcinoma Right [place], [place] [address] [facility] [address] [place], [place] [phone] (Work) [phone] Social History Tobacco Use Types Packs/Day Years Used Date Smoking Tobacco: Every Day Sex Assigned at Date Recorded Not on file documented as of this encounter Last Filed Vital Signs Vital Sign Reading Time Taken Comments Blood Pressure 147/77 05/15/2020 1:39 PM CDT Pulse 93 05/15/2020 1:39 PM CDT Temperature 36.4 ??C (97.5 ??F) 05/15/2020 1:39 PM CDT Respiratory Rate - - Oxygen [...] encounter Progress Notes Bethany Natarajan M.D. - 05/15/2020 1:45 PM CDT ATTESTATION FOR MANAGEMENT VISIT I saw and evaluated the patient and participated in the gregory portions of the service as noted below. I reviewed the documentation of Ms. Deedee Fry RN and agree with the findings and plan. The patient appears well on exam. I congratulated him on completing his treatments today. He was not willing touse the vinegar soaks but will use water on his skin. I advised in him on doing this 3-4 times per day, he states that he will only do this 2 times per day. I shared with him keeping this area open andallowing it to heal. I advised him on Aqupahor and xeroform dressings. He wants to use Telfa. I toldhim to make sure the dressing is wet before he takes it off. He knows that it could take a couple ofweeks for these areas to start healing. I am happy to follow him closely. I shared the testicular US results with him. He knows that if he feels this area on the left testicle to keep changing that he should discuss it with his primary care provider. Mr. Tl Lugo completed radiation treatment as planned without interruptions. The course of treatment was tolerated moderately well. The patient experienced toxicities of grade 2 dermatitis and pain definitely related to treatment during radiation treatment. We provided him with instructions on skin care and pain medications. We will see him back on May 28 to check on him. He knows to call us sooner if he needs help before then. Bethany Natarajan M.D., 05/15/2020 SUBJECTIVE REASON FOR VISIT Evaluation for side effects while receiving radiation treatment for 1. 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 Natarajan HISTORY OF PRESENT ILLNESS Mr. Tl Lugo is a 79-year-old male with non-melanomatous skin cancers. Treatment Course: 1x RLingu_LLeg Plan ID Fractions Dose / Fraction (cGy) Dose Treated (cGy) Dose Planned (cGy) First Treatment Last Treatment Elapsed Days F1_LTInguinal 700 2100 3500 04/24/2020 04/26/2020 2 F1_RTInguinal 425 2125 4250 04/24/2020 05/06/2020 12 F1_LT Leg 300 4500 4500 04/24/2020 05/15/2020 21 Course Summary 04/24/2020 05/15/2020 21 His oncologic history was reviewed with the [...] fractions. 4. April 24, 2020 through May 14, 2020: Patient received radiotherapy to the tumor in skin of left leg and satellite lesions to a dose of 4500 cGy in 15 fractions. Patient seen and evaluated today with Dr. Natarajan. Patient reports that he was taking 1 tablet of Hydrocodone every 6 hours and that this was significantly helping his pain. He rates his pain today at a 8 out of 10 and notes that he stopped taking Hydrocodone as he did not want to become addicted. He has switched to taking 1 Tylenol 4 times a day. He denies dysuria, diarrhea, rectal bleeding or hematuria. He is no longer experiencing looser stools. He has 2 tablets left of Hydrocodone. PATIENT REPORTED SYMPTOM SCREEN FATIGUE (Scale: 0 = no fatigue; 10 = worst fatigue you can imagine): 0 PAIN (Scale: 0 = no pain; 10 = worst pain you can imagine): 8 OVERALL QUALITY OF LIFE (Scale: 0 = as bad as can be; 10 = as good as can be): 8 OBJECTIVE BP 147/77 (BP Location: Left arm, Patient Position: Sitting, Cuff Size: Regular) Pulse 93 Temp 36.4 ??C (Temporal) PHYSICAL EXAM General: Alert and oriented in no apparent distress. Skin: ASSESSMENT / PLAN #1?Multiple non-melanomatous skin cancers, [...] left leg lesion initiated on April 24, 2020;completed on left inguinal on April 30, 2020; completed to the right inguinal on May 07, 2020; completed on May 14, 2020 to the left leg and satellite lesions #5 Left testicular swelling, US negative Patient is to reinitiate Aquaphor to all 3 treatment field areas. He is to apply Aquaphor at least 3-4 times a day. He has been encouraged to reinitiate white vinegar soaks as well, then air dry completely and then Aquaphor application. He is to do this until skin is no longer open/blistering/peeling.He can then switch to Aquaphor only until skin is no longer tender and red. Then moisturizing lotionas needed for any dryness. Patient can go with out underwear to help avoid friction or use Telfa as a barrier over Aquaphor application. Skin will start to heal in 2 to 3 weeks. We discussed Hydrocodone mediation in detail today. Since patient is taking Hydrocodone as prescribed and this is providing him relief we have no additional concerns. We will send through prescription refill to patient's preferred pharmacy today. Dr. Natarajan has reviewed his scrotal ultrasound results with him today. Dr. Natarajan and I will see patient in a follow up visit on May 28, 2020 to complete skin assessment. Radiation Oncology [place] can be contacted at anytime for any questions or concerns. Patient stated a full understanding to the plan of care discussed today. Toxicities reviewed with Dr. Natarajan today. Signed by: Deedee Fry R.N. 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
--- OUTSIDE RECORDS SUMMARY | 2021-10-01 06:26 | XMS_ITS | Encounter Summary ---
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 [facility] Procedures Prior Auth Rad Tx [place] IMRT COMPLEX [address] [place] [address] Referral ID Status Reason Start Date Expiration Date Visits Requ ested Visits Authorized [id number] Closed 04/16/2020 04/16/2021 15 15 Encounter Details Date Type Department Care Team Description 05/08/2020 Hospital Encounter Department of Radiation Shaneka Natarajan I., Oncology in [place] [address] [facility] [address] [place] [phone] Social History Tobacco Use Types Packs/Day Years [...]
--- OUTSIDE RECORDS SUMMARY | 2021-10-01 06:26 | XMS_ITS | Encounter Summary ---
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 [facility] Procedures Prior Auth Rad Tx CT IMRT COMPLEX [address] [place] [address] Referral ID Status Reason Start Date Expiration Date Visits Requ ested Visits Authorized [id number] Closed 04/16/2020 04/16/2021 15 15 Encounter Details Date Type Department Care Team Description 04/24/2020 Hospital Encounter Department of Radiation Shaneka Natarajan I., Oncology in [place], [place] [address] [facility] [address] [place] [phone] Social History Tobacco Use Types Packs/Day Years [...]
--- OUTSIDE RECORDS SUMMARY | 2021-10-01 06:26 | XMS_ITS | Encounter Summary ---
:1940 Author Organization [facility] Address [address] [place] [address] Care Team Providers Name Role Phone Unavailable [...] 04/16/2020 1:28 PM Re sults for this BOTTLE AND GLASS INSPECTOR procedure are i n the results section. documented in this encounter Results Leg-Oncology Image Exam (04/16/2020 1:28 PM BOTTLE AND GLASS INSPECTOR) Specimen (Source) Anatomical Collection Method Collection Time Re ceived Time Location / / Volume Laterality 04/16/2020 1:25 PM BOTTLE AND GLASS INSPECTOR Narrative IIMS - 04/16/2020 1:28 PM BOTTLE AND GLASS INSPECTOR This order has been created and auto-finalized [...]
--- OUTSIDE RECORDS SUMMARY | 2021-10-01 06:26 | XMS_ITS | Encounter Summary ---
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 [facility] Procedures Prior Auth Rad Tx [place] IMRT COMPLEX [address] [place] [address] Referral ID Status Reason Start Date Expiration Date Visits Requ ested Visits Authorized [id number] Closed 04/16/2020 04/16/2021 15 Encounter Details Date Type Department Care Team Description 05/06/2020 Hospital Encounter Department of Radiation Shaneka Natarajan I., Oncology in [place] [address] [facility] [address] [place] [phone] Social History Tobacco Use Types Packs/Day Years [...]
--- OUTSIDE RECORDS SUMMARY | 2021-10-01 06:26 | XMS_ITS | Encounter Summary ---
:[address] 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 [facility] Procedures Prior Auth Rad Tx [place] IMRT COMPLEX [address] [place], [place] [address] Referral ID Status Reason Start Date Expiration Date Visits Requ ested Visits Authorized [id number] Closed 04/16/2020 04/16/2021 15 15 GRINDER Encounter Details Date Type Department Care Team Description 04/16/2020 Orders Only Department of Bethany Natarajan N eoplasm Of Radiation Oncology in [place] Adhikari Lower Limb Squamous [place] [address] [facility] Cell Carcinoma Left [address] [place], [place] (Primary Dx) [place] [phone] Social History Tobacco Use Types Packs/Day Years Used Date Smoking Tobacco: Every Day Sex Assigned at Date Recorded Not on file documented as of this encounter Plan of Treatment Scheduled Orders Name Type Priority Associated Diagnoses Order S chedule Prior Auth Rad Tx Radiation Oncology Routine Malignant Neoplas m Of Ordered: 04/16/2020 Lower Limb Squamous Cell Carcinoma Left documented as of this encounter Visit Diagnoses Diagnosis 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 - Primary documented in this encounter
--- OUTSIDE RECORDS SUMMARY | 2021-10-01 06:26 | XMS_ITS | Encounter Summary ---
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 [facility] Procedures Prior Auth Rad Tx [place] IMRT COMPLEX [address] [place] [address] Referral ID Status Reason Start Date Expiration Date Visits Requ ested Visits Authorized [id number] Closed 04/16/2020 04/16/2021 15 15 Encounter Details Date Type Department Care Team Description 05/02/2020 Hospital Encounter Department of Radiation Shaneka Natarajan I., [place]cology [place] [address] [facility] [address] [place] [phone] Social History Tobacco Use Types Packs/Day Years [...]
--- OUTSIDE RECORDS SUMMARY | 2021-10-01 06:26 | XMS_ITS | Encounter Summary ---
:1940 Author Organization [facility] Address [address] [place] [address] Care Team Providers Name Role Phone Unavailable [...] Associated Comments Diagnosis DERMATOLOGY IMAGE Routine 02/12/2017 12:15 Result s for this EXAM PM CLOUD ENGAGEMENT PARTNER procedure are i n the results section. documented in this encounter Results DERMATOLOGY IMAGE EXAM (02/12/2017 12:15 PM CLOUD ENGAGEMENT PARTNER) Specimen (Source) Anatomical Collection Method Collection Time Re ceived Time Location / / Volume Laterality 02/12/2017 12:00 PM CLOUD ENGAGEMENT PARTNER Narrative [facility]IMS - 02/12/2017 2:49 PM CLOUD ENGAGEMENT PARTNER This order has been created and auto-finalized [...]
--- OUTSIDE RECORDS SUMMARY | 2021-10-01 06:26 | XMS_ITS | Encounter Summary ---
:1940 Author Organization [facility] Address [address] [place] [address] Care Team Providers Name Role Phone Unavailable Primary Care Provider Unavailable Reason for Visit Reason Comments Lab Monitoring Encounter Details Date Type Department Care Team Description 04/19/2020 Documentation Department of Radiation Deedee Fry, Lab Monitoring Oncology in [facility] [address] [facility] [address] [place] [phone] (Wo rk) Social History Tobacco Use Types Packs/Day Years Used Date Smoking Tobacco: Every Day Sex Assigned at Date Recorded Not on file documented as of this encounter Progress Notes Deedee Fry, RJhonN. - 04/19/2020 10:39 AM CST Lab result entered in IER DRIVER documented in this encounter Plan of Treatment Not on filedocumented as of this encounter Procedures Procedure Name Priority Date/Time Associated Diagnosis Comme nts LABEXT SARS Routine 04/17/2020 12:00 AM Results for this CORONAVIRUS-2 COURIER DRIVER procedure are in (COVID-19) RNA the results section. documented in this encounter Results EXT SARS Coronavirus-2 (COVID-19) RNA (04/17/2020 12:00 AM COURIER DRIVER) [facility] Method Time Signature EXT Undetected Inconclus [facility] SARS-CoV-2 sylvia, LABORATORIES - RNA Indetermi [facility] Invalid, Negative, Not Detected, Undetecte d, Other (specify in comment) Specimen (Source) Anatomical Location Collection Method / Collectio n Time Received Time / Laterality Volume Swab 04/17/2020 Bethany Natarajan M.D. LAB MICROBIOLOGY - GENERAL O RDERABLES Performing Organization Address City/State/ZIP Code Phon e Number [facility] - [address] [place], [place] [address] [facility] documented in this encounter Visit Diagnoses Not on filedocumented in this encounter
--- OUTSIDE RECORDS SUMMARY | 2021-10-01 06:26 | XMS_ITS | Encounter Summary ---
:1940 Author Organization [facility] Address [address] [place] [address] Care Team Providers Name Role Phone Unavailable [...] Associated Comments Diagnosis DERMATOLOGY IMAGE Routine 02/12/2017 12:20 Result s for this EXAM PM METER MAKER procedure are i n the results section. documented in this encounter Results DERMATOLOGY IMAGE EXAM (02/12/2017 12:20 PM METER MAKER) Specimen (Source) Anatomical Collection Method Collection Time Re ceived Time Location / / Volume Laterality 02/12/2017 12:00 PM METER MAKER Narrative [facility]IMS - 02/12/2017 2:49 PM METER MAKER This order has been created and auto-finalized [...]
--- OUTSIDE RECORDS SUMMARY | 2021-10-01 06:26 | XMS_ITS | Encounter Summary ---
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 [facility] Procedures Prior Auth Rad Tx [place] IMRT COMPLEX [address] [place] [address] Referral ID Status Reason Start Date Expiration Date Visits Requ ested Visits Authorized [id number] Closed 04/16/2020 04/16/2021 15 15 Encounter Details Date Type Department Care Team Description 04/30/2020 Hospital Encounter Department of Radiation Shaneka Natarajan I., Oncology in [place], [place] [address] [facility] [address] [place] [phone] Social History Tobacco Use Types Packs/Day Years [...]
--- OUTSIDE RECORDS SUMMARY | 2021-10-01 06:26 | XMS_ITS | Encounter Summary ---
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 [facility] Procedures Prior Auth Rad Tx CT IMRT COMPLEX [address] [place] [address] Referral ID Status Reason Start Date Expiration Date Visits Requ ested Visits Authorized [id number] Closed 04/16/2020 04/16/2021 15 15 Encounter Details Date Type Department Care Team Description 05/07/2020 Hospital Encounter Department of Radiation Shaneka Natarajan I., Oncology [place] [address] [facility] [address] [place] [phone] Social History Tobacco Use Types Packs/Day Years [...]
--- OUTSIDE RECORDS SUMMARY | 2021-10-01 06:26 | XMS_ITS | Encounter Summary ---
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 [facility] Procedures Prior Auth Rad Tx [place] IMRT COMPLEX [address] [place] [address] Referral ID Status Reason Start Date Expiration Date Visits Requ ested Visits Authorized [id number] Closed 04/16/2020 04/16/2021 15 15 Encounter Details Date Type Department Care Team Description 04/25/2020 Hospital Encounter Department of Radiation Shaneka Natarajan I., Oncology in [place], [place] [address] [facility] [address] [place] [phone] Social History Tobacco Use Types Packs/Day Years [...]
--- OUTSIDE RECORDS SUMMARY | 2021-10-01 06:26 | XMS_ITS | Encounter Summary ---
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 [facility] Procedures Prior Auth Rad Tx [place] IMRT COMPLEX [address] [place] [address] Referral ID Status Reason Start Date Expiration Date Visits Requ ested Visits Authorized [id number] Closed 04/16/2020 04/16/2021 15 15 Encounter Details Date Type Department Care Team Description 04/26/2020 Hospital Encounter Department of Radiation Shaneka Natarajan I., Oncology in [place], [place] [address] [facility] [address] [place] [phone] Social History Tobacco Use Types Packs/Day Years [...]
== END 2021-09-30 12:56 | disposition home or self-care (01) ==
LOC: WOUND 12:56
PROVIDERS: PCP Family Medicine; Visit Provider Nurse Practitioner Family
DX: L59.8 Other specified disorders of the skin and subcutaneous tissue related to radiation (principal)
CPT/HCPCS: 11042

== ENCOUNTER 2021-10-14 12:33 | Outpatient (CLI) | payer OTHER, SELFPAY ==
--- OUTSIDE RECORDS SUMMARY | 2021-10-14 12:35 | XMS_ITS | Encounter Summary ---
:1940 Author Organization [facility] Address [address] [place] [address] Care Team Providers Name Role Phone Unavailable Primary Care Provider Unavailable Encounter Details Date Type Department Care Team Description 07/10/2020 Clinical Communication Department of Bethany Natarajan Radiation Oncology in [place] Adhikari [facility] [address] [facility] [address] [place] [phone] Social History Tobacco Use Types Packs/Day Years [...] informed him that a prescription for the [facility] has been sent to the [facility] in [place]. Phone number: [phone] Is it okay to leave a voicemail on answering machine with test results? Yes Pharmacy (if medication related): N/A Elif Parkinson documented in this encounter Plan of Treatment Not on filedocumented as of this encounter Visit Diagnoses Not on filedocumented in this encounter
--- OUTSIDE RECORDS SUMMARY | 2021-10-14 12:35 | XMS_ITS | Encounter Summary ---
:1940 Author Organization [facility] Address [address] [place] [address] Care Team Providers Name Role Phone Unavailable Primary Care Provider Unavailable Reason for Referral Specialty Diagnoses / Procedures Referred By Contact Refer red To Contact Dona Zuniga M.D. [facility] Region [address] [place] [address] Referral ID Status Reason Start Date Expiration Date Visits Requ ested Visits Authorized Encounter Details Date Type Department Care Team Description 11/01/[address] [facility] PCP [facility] MNT Sa greyson Zuniga M.D. [address] [place] [address] [phone] (Wo rk) Social History Tobacco [...]
--- OUTSIDE RECORDS SUMMARY | 2021-10-14 12:35 | XMS_ITS | Clinical Summary ---
:1940 Author Organization [facility] Address [address] [place] [address] Care Team Providers Name Role Phone Unavailable Primary Care Provider Unavailable Source Comments Patient records contain information from all sites at [facility]. For routine questions regarding patient records, call [phone] during business hours, M-F 8:00 AM - 5:00 PM Central Time. Record requests for emergency care only can be directed to [phone] at any time.[facility] Allergies Active Allergy Reactions Severity Noted Date [...] Phone Addre ss Type Group [facility] [id number] 2021-Present [phone] [address] [place] [address]
--- OUTSIDE RECORDS SUMMARY | 2021-10-14 12:35 | XMS_ITS ---
:1940 Author Organization [facility] Address [address] [place] [address] Care Team Providers Name Role Phone Unavailable [...] Elapsed Days Session Dose Total Dos e [id number] 05/15/2020 21 300 cGy 4,500 cGy [id number] 05/06/2020 12 425 cGy 3,825 cGy [id number] 04/26/2020 2 700 cGy 2,100 cGy
--- OUTSIDE RECORDS SUMMARY | 2021-10-14 12:35 | XMS_ITS | Encounter Summary ---
:1940 Author Organization [facility] Address [address] [place] [address] Care Team Providers Name Role Phone Unavailable Primary Care Provider Unavailable Reason for Visit Reason Comments Follow-up Encounter Details Date Type Department Care Team Description 10/30/2020 Clinical Communication Department of Bethany Natarajanzuhair Radiation Oncology in [place] Adhikari [facility] a [address] [facility] [address] [place] [address] [phone] Social History Tobacco Use Types Packs/Day Years [...] center to help with this. Phone number: [phone] Is it okay to leave a voicemail on answering machine with test results? No Pharmacy (if medication related): N/A Elif Parkinson documented in this encounter Plan of Treatment Not on filedocumented as of this encounter Visit Diagnoses Not on filedocumented in this encounter
--- OUTSIDE RECORDS SUMMARY | 2021-10-14 12:35 | XMS_ITS | Encounter Summary ---
:1940 Author Organization [facility] Address [address] [place] [address] Care Team Providers Name Role Phone Unavailable Primary Care Provider Unavailable Encounter Details Date Type Department Care Team Description 09/27/2020 Clinical Communication Department of Bethany Natarajan Radiation Oncology in [place] Adhikari [facility] [address] [facility] [address] [place] [address] [phone] Social History Tobacco Use Types Packs/Day Years [...]
--- OUTSIDE RECORDS SUMMARY | 2021-10-14 12:35 | XMS_ITS | Encounter Summary ---
:1940 Author Organization [facility] Address [address] [place] [address] Care Team Providers Name Role Phone Unavailable Primary Care Provider Unavailable Reason for Visit Reason Comments Med Refill Encounter Details Date Type Department Care Team Description 08/08/2020 Clinical Communication Department of Travis Hall Refjoanne Radiation Oncology in [facility] [place] [address] [place] [phone] Social History Tobacco Use Types Packs/Day Years Used Date Smoking Tobacco: Every Day Sex Assigned at Date Recorded Not on file documented as of this encounter Miscellaneous Notes Telephone Encounter - Deedee Fry R.N. - 08/08/2020 1:06 PM CDT Information Discussed I called and left voicemail on patient's phone requesting call back. Patient reported that he was taking [place] twice a day at his last in office visit with us. PLAN Dr. Natarajan and I will send through refill on [place] to get him through until August 16, 2020, when he is scheduled for follow up with Dr. Natarajan in [place]. Disposition/Recommendation: I requested call back, refill will [...] can be done or not Phone number: [phone] Is it okay to leave a voicemail on answering machine with test results? Yes Pharmacy (if medication related): [facility] [address] [place] [id number] Paula Hall documented in this encounter Plan of Treatment Not on filedocumented as of this encounter Visit Diagnoses Not on filedocumented in this encounter
--- OUTSIDE RECORDS SUMMARY | 2021-10-14 12:36 | XMS_ITS | Encounter Summary ---
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 [facility] Procedures Prior Auth Rad Tx [place] IMRT COMPLEX [address] [place] [address] Referral ID Status Reason Start Date Expiration Date Visits Requ ested Visits Authorized [id number] Closed 04/16/2020 04/16/2021 15 15 Encounter Details Date Type Department Care Team Description 05/08/2020 Hospital Encounter Department of Radiation Shaneka Natarajan I., [place] [address] [facility] [address] [place] [phone] Social History Tobacco Use Types Packs/Day Years [...]
--- OUTSIDE RECORDS SUMMARY | 2021-10-14 12:36 | XMS_ITS | Encounter Summary ---
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 [facility] Procedures Prior Auth Rad Tx [place] IMRT COMPLEX [address] [place] [address] Referral ID Status Reason Start Date Expiration Date Visits Requ ested Visits Authorized [id number] Closed 04/16/2020 04/16/2021 15 15 Encounter Details Date Type Department Care Team Description 04/29/2020 Hospital Encounter Department of Radiation Shaneka Natarajan I., Oncology in [place], [place]in[place] [address] [facility] [address] [place] [phone] Social History Tobacco Use Types Packs/Day Years [...]
--- OUTSIDE RECORDS SUMMARY | 2021-10-14 12:36 | XMS_ITS | Encounter Summary ---
:1940 Author Organization [facility] Address [address] [place] [address] Care Team Providers Name Role Phone Unavailable [...] Onc Treatment Planning CT Simulation [address] [place], [place] [address] Referral ID Status Reason Start Date Expiration Date Visits Requ ested Visits Authorized [id number] Closed 04/10/2020 04/10/2021 1 1 GER INPATIENT Reason for Visit Radiation Therapy (Routine) - [...] Onc Treatment Planning CT Simulation [address] [place], [place] [address] Referral ID Status Reason Start Date Expiration Date Visits Requ ested Visits Authorized [id number] Closed 04/10/2020 04/10/2021 1 1 Encounter Details Date Type Department Care Team Description 04/16/2020 Hospital Encounter Department of Bethany Natarajan 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 CT images were transferred to the Signicat treatment planning system, after a reference isocenter was determined and marked. Segmentation and treatment planning will take place priorto treatment delivery. Patient set up and imaging was appropriate and completed without incident. Online Publisher use:No GER INPATIENT documented in this encounter Plan of Treatment Not on filedocumented as of this encounter Procedures Procedure Name Priority Date/Time Associated Comments Diagnosis INITIAL RAD ONC Routine 04/16/2020 2:00 PM Malignant Neoplasm Results for this TREATMENT PLANNING MANAGER INPATIENT Of Lower Limb Basal pr ocedure are in CT SIMULATION Cell Carcinoma L eft the results Malignant Neoplasm section. 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 04/16/2020 ??4:02 PM Initial Rad Onc Treatment Planning CT Si mulation Date/Time: 04/16/2020 3:57 PM Performed by: Bethany Natarajan M.D. Authorized by: Bethnay Natarajan M.D. Bethany Natarajan M.D. RADIATION ONCOLOGY ORDERABLE S Performing Organization Address City/State/ZIP Code Phon e Number [place] documented in this encounter Visit Diagnoses Diagnosis 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
--- OUTSIDE RECORDS SUMMARY | 2021-10-14 12:36 | XMS_ITS | Encounter Summary ---
:1940 Author Organization [facility] Address [address] [place] [address] Care Team Providers Name Role Phone Unavailable Primary Care Provider Unavailable Encounter Details Date Type Department Care Team Description 05/15/2020 Hospital Encounter Department of Radiation Shaneka Natarajan I., Oncology in [facility] [address] [facility] [address] [place] [address] [phone] Social History Tobacco Use Types Packs/Day Years [...]
--- OUTSIDE RECORDS SUMMARY | 2021-10-14 12:36 | XMS_ITS | Encounter Summary ---
:1940 Author Organization [facility] Address [address] [place] [address] Care Team Providers Name Role Phone Unavailable [...] 04/16/2020 1:28 PM Re sults for this CLINICAL SOCIAL WORK AIDE procedure are i n the results section. documented in this encounter Results Leg-Oncology Image Exam (04/16/2020 1:28 PM CLINICAL SOCIAL WORK AIDE) Specimen (Source) Anatomical Collection Method Collection Time Re ceived Time Location / / Volume Laterality 04/16/2020 1:25 PM CLINICAL SOCIAL WORK AIDE Narrative [facility] - 04/16/2020 1:28 PM CLINICAL SOCIAL WORK AIDE This order has been created and auto-finalized [...]
--- OUTSIDE RECORDS SUMMARY | 2021-10-14 12:36 | XMS_ITS | Encounter Summary ---
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 [facility] Procedures Prior Auth Rad Tx [place] IMRT COMPLEX [address] [place] [address] Referral ID Status Reason Start Date Expiration Date Visits Requ ested Visits Authorized [id number] Closed 04/16/2020 04/16/2021 15 15 Encounter Details Date Type Department Care Team Description 04/26/2020 Hospital Encounter Department of Radiation Shaneka Natarajan I., Oncology in [place], [place] [address] [email or web address] [address] [place] [phone] Social History Tobacco Use Types Packs/Day Years [...]
--- OUTSIDE RECORDS SUMMARY | 2021-10-14 12:36 | XMS_ITS | Encounter Summary ---
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
--- OUTSIDE RECORDS SUMMARY | 2021-10-14 12:36 | XMS_ITS | Encounter Summary ---
:1940 Author Organization [facility] Address [address] [place] [address] Care Team Providers Name Role Phone Unavailable [...] 12:15 Result s for this EXAM PM TAR LEVELER procedure are i n the results section. documented in this encounter Results DERMATOLOGY IMAGE EXAM (02/12/2017 12:15 PM TAR LEVELER) Specimen (Source) Anatomical Collection Method Collection Time Re ceived Time Location / / Volume Laterality 02/12/2017 12:00 PM TAR LEVELER Narrative [facility] - 02/12/2017 2:49 PM TAR LEVELER This order has been created and auto-finalized [...]
--- OUTSIDE RECORDS SUMMARY | 2021-10-14 12:36 | XMS_ITS | Encounter Summary ---
:1940 Author Organization [facility] Address [address] [place] [address] Care Team Providers Name Role Phone Unavailable Primary Care Provider Unavailable Reason for Referral Outpatient (Routine) - Closed Specialty Diagnoses / Procedures Referred By Contact Refer red To Contact Diagnoses Swelling Testicle Garrison Casas M.D. 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 [facility] Region Procedures Management Visit [address] [place] [address] Referral ID Status Reason Start Date Expiration Date Visits V isits Requested Authorized [id number] Canceled 04/10/2020 04/10/2021 5 5 Encounter Details Date Type Department Care Team Description 05/08/2020 Hospital Encounter Department of Grarison Casas ing Testicle (Primary Dx); Radiation Oncology [place] Malignant Neoplasm Of Lower Limb Basal C ell Carcinoma Left; in [place], [facility] [address] [facility] 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; [place], [place] 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 The patient will continue with treatment as planned. Signed by: Garrison Casas M.D. 05/08/2020 2:54 PM CDT [facility] Radiation Therapy Center [address] [place] [address] documented in this encounter Plan of Treatment [...]
--- OUTSIDE RECORDS SUMMARY | 2021-10-14 12:36 | XMS_ITS | Encounter Summary ---
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 [facility] Procedures Prior Auth Rad Tx [place] IMRT COMPLEX [address] [place] [address] Referral ID Status Reason Start Date Expiration Date Visits Requ ested Visits Authorized [id number] Closed 04/16/2020 04/16/2021 15 15 Encounter Details Date Type Department Care Team Description 05/03/2020 Hospital Encounter Department of Radiation Shaneka Natarajan I., [place]cology [place] [address] [facility] [address] [place] [phone] Social History Tobacco Use Types Packs/Day Years [...]
--- OUTSIDE RECORDS SUMMARY | 2021-10-14 12:36 | XMS_ITS | Encounter Summary ---
:1940 Author Organization [facility] Address [address] [place] [address] Care Team Providers Name Role Phone Unavailable [...] 12:30 Result s for this EXAM PM QUOTER procedure are i n the results section. documented in this encounter Results DERMATOLOGY IMAGE EXAM (02/12/2017 12:30 PM QUOTER) Specimen (Source) Anatomical Collection Method Collection Time Re ceived Time Location / / Volume Laterality 02/12/2017 12:00 PM QUOTER Narrative [facility] - 02/12/2017 2:50 PM QUOTER This order has been created and auto-finalized [...]
--- OUTSIDE RECORDS SUMMARY | 2021-10-14 12:36 | XMS_ITS | Encounter Summary ---
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; in [place], [facility] Malignant Neoplasm Of Lower Limb Basal C ell Carcinoma Right [place], [place] [address] [facility] [address] [place], [place] [phone] (Work) [phone] Social History Tobacco Use Types Packs/Day Years Used Date Smoking Tobacco: Every Day Sex Assigned at Date Recorded Not on file documented as of this encounter Last Filed Vital Signs Vital Sign Reading Time Taken Comments Blood Pressure 148/82 05/01/2020 1:55 PM RETREAD SUPERVISOR Pulse 86 05/01/2020 1:55 PM RETREAD SUPERVISOR Temperature 36.3 ??C (97.3 ??F) 05/01/2020 1:55 PM RETREAD SUPERVISOR Respiratory Rate - - Oxygen Saturation - [...] Quynh Moreno P.A.-C. M.SJhon 05/01/2020 2:25 PM RETREAD SUPERVISOR EAD SUPERVISOR Associated attestation - Bethany Natarajan M.D. - 05/01/2020 4:43 PM RETREAD SUPERVISOR I saw and evaluated the patient and [...]
--- OUTSIDE RECORDS SUMMARY | 2021-10-14 12:36 | XMS_ITS | Encounter Summary ---
:1940 Author Organization [facility] Address [address] [place] [address] Care Team Providers Name Role Phone Unavailable Primary Care Provider Unavailable Reason for Referral Specialty Diagnoses / Procedures Referred By Contact Refer red To Contact Bethany Natarajan M.D. [facility] Region [address] [place] [phone] Referral ID Status Reason Start Date Expiration Date Visits Requ ested Visits Authorized NICAL ARCHITECT Encounter Details Date Type Department Care Team Description 04/30/2020 - Hospital Encounter Department of Aramis Natarajan M.D. 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
--- OUTSIDE RECORDS SUMMARY | 2021-10-14 12:36 | XMS_ITS | Encounter Summary ---
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 [facility] Procedures Prior Auth Rad Tx [place] IMRT COMPLEX [address] [place] [address] Referral ID Status Reason Start Date Expiration Date Visits Requ ested Visits Authorized [id number] Closed 04/16/2020 04/16/2021 15 15 Encounter Details Date Type Department Care Team Description 05/01/2020 Hospital Encounter Department of Radiation Shaneka Natarajan I., Oncology in [place], [place] [address] [facility] [address] [place] [phone] Social History Tobacco Use Types Packs/Day Years [...]
--- OUTSIDE RECORDS SUMMARY | 2021-10-14 12:36 | XMS_ITS | Encounter Summary ---
:1940 Author Organization [facility] Address [address] [place] [address] Care Team Providers Name Role Phone Unavailable Primary Care Provider Unavailable Reason for Visit Reason Comments Lab Monitoring Encounter Details Date Type Department Care Team Description 04/19/2020 Documentation Department of Radiation Deedee Fry, Lab Monitoring Oncology in [place] [facility] [address] [facility] [address] [place] [phone] (Wo rk) Social History Tobacco Use Types Packs/Day Years Used Date Smoking Tobacco: Every Day Sex Assigned at Date Recorded Not on file documented as of this encounter Progress Notes Deedee Fry, RJhonN. - 04/19/2020 10:39 AM CST Lab result entered in CARRIER documented in this encounter Plan of Treatment Not on filedocumented as of this encounter Procedures Procedure Name Priority Date/Time Associated Diagnosis Comme nts LABEXT SARS Routine 04/17/2020 12:00 AM Results for this CORONAVIRUS-2 TEST CARRIER procedure are in (COVID-19) RNA the results section. documented in this encounter Results EXT SARS Coronavirus-2 (COVID-19) RNA (04/17/2020 12:00 AM TEST CARRIER) [facility] Method Time Signature EXT Undetected In[facility]clus [facility] SARS-CoV-2 sylvia, LABORATORIES - RNA Indetermi [facility] Invalid, Negative, Not Detected, Undetecte d, Other (specify in comment) Specimen (Source) Anatomical Location Collection Method / Collectio n Time Received Time / Laterality Volume Swab 04/17/2020 Bethany Natarajan M.D. LAB MICROBIOLOGY - GENERAL O RDERABLES Performing Organization Address City/State/ZIP Code Phon e Number [facility] - [address] [place], [place] [address] [facility] documented in this encounter Visit Diagnoses Not on filedocumented in this encounter
--- OUTSIDE RECORDS SUMMARY | 2021-10-14 12:36 | XMS_ITS | Encounter Summary ---
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 [facility] Procedures Prior Auth Rad Tx [place] IMRT COMPLEX [address] [place], [place] [address] Referral ID Status Reason Start Date Expiration Date Visits Requ ested Visits Authorized [id number] Closed 04/16/2020 04/16/2021 15 15 OR DIE DRAWING CHECKER Encounter Details Date Type Department Care Team Description 04/16/2020 Orders Only Department of Bethany Natarajan N eoplasm Of Radiation Oncology in [place] Adhikari Lower Limb Squamous [place] [address] [facility] Cell Carcinoma Left [address] [place], [place] (Primary Dx) [place] [phone] Social History Tobacco Use Types Packs/Day Years [...]
--- OUTSIDE RECORDS SUMMARY | 2021-10-14 12:36 | XMS_ITS | Encounter Summary ---
:1940 Author Organization [facility] Address [address] [place] [address] Care Team Providers Name Role Phone Unavailable Primary Care Provider Unavailable Reason for Referral Outpatient (Routine) - Closed Specialty Diagnoses / Procedures Referred By Contact Refer red To Contact Radiation Oncology Bethany Natarajan [facility] Feli Gomez M.D. [address] [place] [address] Referral ID Status Reason Start Date Expiration Date Visits Requ ested Visits Authorized [id number] Closed 05/28/2020 05/28/2021 1 1 Scheduling Instructions 2-3 weeks with CECY and Deedee Outpatient (Routine) - Closed Specialty Diagnoses / Procedures Referred By Contact Refer red To Contact Radiation Oncology Bethany Natarajan [facility] Feli Gomez M.D. [address] [place] [address] Referral ID Status Reason Start Date Expiration Date Visits Requ ested Visits Authorized [id number] Closed 05/15/2020 05/15/2021 1 1 Scheduling Instructions Deedee first to assess skin Reason for Visit Outpatient (Routine) - Closed Specialty Diagnoses / Procedures Referred By Contact Refer red To Contact Radiation Oncology Bethany Natarajan [facility] Feli Gomez M.D. 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 05/28/2020 1:16 PM CDT [facility] [address] [place] [address] ATTESTATION FOR FOLLOW-UP VISIT I saw and [...]
--- OUTSIDE RECORDS SUMMARY | 2021-10-14 12:36 | XMS_ITS | Encounter Summary ---
:1940 Author Organization [facility] Address [address] [place] [address] Care Team Providers Name Role Phone Unavailable [...] Bethany Natarajan M.D. 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 [address] [place], [place] [phone] (Work) [phone] Social History Tobacco Use Types Packs/Day Years Used Date Smoking Tobacco: Every Day Sex Assigned at Date Recorded Not on file documented as of this encounter Last Filed Vital Signs Vital Sign Reading Time Taken Comments Blood Pressure 156/86 04/26/2020 2:31 PM ORTHOPAEDIC TECHNOLOGIST Pulse 92 04/26/2020 2:31 PM ORTHOPAEDIC TECHNOLOGIST Temperature 36.9 ??C (98.5 ??F) 04/26/2020 2:31 PM ORTHOPAEDIC TECHNOLOGIST Respiratory Rate - - Oxygen Saturation - - Inhaled Oxygen Concentration - - Weight 95.5 kg (210 lb 8.6 oz) 04/26/2020 2:31 PM ORTHOPAEDIC TECHNOLOGIST Height - - Body Mass Index - [...] 700 1400 3500 04/24/2020 04/25/2020 1 F1_RTInguinal 382 021 2925 04/24/2020 04/25/2020 1 F1_LT Leg 080 197 8900 04/24/2020 04/25/2020 1 Course Summary 04/24/2020 04/25/2020 [...] by: Deedee Fry R.N. 04/26/2020 2:54 PM ORTHOPAEDIC TECHNOLOGIST ATTESTATION FOR MANAGEMENT VISIT I saw and evaluated the patient and participated in the gregory portions of the service as noted above. I reviewed the documentation of Ms. Deedee Fry RN and agree with the findings and plan. The patient appears well on exam. We will continue with radiation as planned and monitor weekly. Bethany Natarajan M.D., 04/26/2020 OPAEDIC TECHNOLOGIST documented in this encounter Plan of Treatment [...]
--- OUTSIDE RECORDS SUMMARY | 2021-10-14 12:36 | XMS_ITS | Encounter Summary ---
:1940 Author Organization [facility] Address [address] [place] [address] Care Team Providers Name Role Phone Unavailable Primary Care Provider Unavailable Reason for Referral Outpatient (Routine) - Closed Specialty Diagnoses / Procedures Referred By Contact Refer jose luis To Contact Radiation Oncology Bethany Natarajan [facility] Feli Gomez M.D. [address] [place] [address] Referral ID Status Reason Start Date Expiration Date Visits Requ ested Visits Authorized [id number] Closed 05/28/2020 05/28/2021 1 1 Scheduling Instructions 2-3 weeks with CECY and Deedee Reason for Visit Outpatient (Routine) - Closed Specialty Diagnoses / Procedures Referred By Contact Sofi amaya To Contact Radiation Oncology Bethany Natarajan [facility] Feli Gomez M.D. [address] [place] [phone] Referral ID Status Reason Start Date Expiration Date Visits Requ ested Visits Authorized [id number] Closed 05/28/2020 05/28/2021 1 1 Encounter Details Date Type Department Care Team Description 06/11/2020 Hospital Encounter Department of Bethany Natarajan (Primary Dx) Radiation Oncology [place] Adhikari in [place], [address] [place] [address] [address] [facility] [address] [place], [place] [phone] (Work) [phone] Social History Tobacco Use Types Packs/Day Years [...] a 8 out of 10.He takes 1 [place] in the morning and 1 at bedtime. [...] will send through prescription refill on his [place] to his preferred pharmacy today. Patient is to not exceed 3200 mg of Ibuprofen a day. We encouraged patient to trial warm compresses for acute right eye mattering. We will send through referral to [facility]. We will see Mr. Tl Lugo in a follow-up visit in late July. The patient was told to contact us sooner with questions or concerns. He verbally expressed his understanding of the plan. Signed by: Deedee Fry R.N. 06/11/2020 1:09 PM CDT [facility] [address] [place] [address] documented in this encounter Plan of Treatment Scheduled Referrals Name Type Priority Associated Order Schedule Diagnoses Radiation Oncology Outpatient Referral Routine On ce for 1 office visit Occurrences sta rting (clinic) 06/11/2020 unti l 06/11/2020 documented as of this encounter Visit Diagnoses Diagnosis Red Eye - Primary documented in this encounter
--- OUTSIDE RECORDS SUMMARY | 2021-10-14 12:36 | XMS_ITS | Encounter Summary ---
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 I encouraged him to [...] Garrison Casas M.D. 05/07/2020 4:51 PM CDT [facility] Rad[facility] Therapy [facility] [address] [place] [address] documented in this encounter Plan of Treatment [...]
--- OUTSIDE RECORDS SUMMARY | 2021-10-14 12:36 | XMS_ITS | Encounter Summary ---
:1940 Author Organization [facility] Address [address] [place] [address] Care Team Providers Name Role Phone Unavailable Primary Care Provider Unavailable Reason for Visit Appointment Request (Routine) - Closed Specialty Diagnoses / Procedures Referred By Contact Refer red To Contact Radiation Oncology Diagnoses Malignant Neoplasm Of Skin Basal Cell Carcinoma Malignant Neoplasm Of Skin Squamous Cell Carcinoma Annita Jay M.D. 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 [place], [place] [address] [facility] [address] [place], [place] [phone] (Work) [phone] Social History Tobacco Use Types Packs/Day Years Used Date Smoking Tobacco: Every Day Sex Assigned at Date Recorded Not on file documented as of this encounter Last Filed Vital Signs Vital Sign Reading Time Taken Comments Blood Pressure 124/76 04/16/2020 12:50 PM SANDWICH PEDDLER Pulse 93 04/16/2020 12:50 PM SANDWICH PEDDLER Temperature 37.2 ??C (99 ??F) 04/16/2020 12:50 PM SANDWICH PEDDLER Respiratory Rate - - Oxygen Saturation - - Inhaled Oxygen Concentration - - Weight 95.5 kg (210 lb 8.6 oz) 04/16/2020 12:50 PM SANDWICH PEDDLER Height - - Body Mass Index - [...] documented as of this encounter Consult Notes Bethayn Natarajan M.D. - 04/16/2020 1:00 PM CST [...] surgery, nose SOCIAL HISTORY He lives in [place], [place]. He lives at [place] in an apartment. He is single. 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 He is mobile with [...] Photos were taken and are available in [email or web address] after obtaining consent. He has a 1.5 [...] We discussed the acute as well as watermelon inspector risks, including, but not limited to fatigue, [...] by: Bethany Natarajan M.D. 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
--- OUTSIDE RECORDS SUMMARY | 2021-10-14 12:36 | XMS_ITS | Encounter Summary ---
:1940 Author Organization [facility] Address [address] [place] [address] Care Team Providers Name Role Phone Unavailable [...] 12:35 Result s for this EXAM PM FOOD PREPARATION SUPERVISOR procedure are i n the results section. documented in this encounter Results DERMATOLOGY IMAGE EXAM (02/12/2017 12:35 PM FOOD PREPARATION SUPERVISOR) Specimen (Source) Anatomical Collection Method Collection Time Re ceived Time Location / / Volume Laterality 02/12/2017 12:00 PM FOOD PREPARATION SUPERVISOR Narrative [facility] - 02/12/2017 2:50 PM FOOD PREPARATION SUPERVISOR This order has been created and [...]
--- OUTSIDE RECORDS SUMMARY | 2021-10-14 12:36 | XMS_ITS | Encounter Summary ---
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 [facility] Procedures Prior Auth Rad Tx [place] IMRT COMPLEX [address] [place] [address] Referral ID Status Reason Start Date Expiration Date Visits Requ ested Visits Authorized [id number] Closed 04/16/2020 04/16/2021 15 15 Encounter Details Date Type Department Care Team Description 05/13/2020 Hospital Encounter Department of Radiation Shaneka Natarajan I., [place] [address] [place] [address] [place] [phone] Social History Tobacco Use Types Packs/Day Years [...]
--- OUTSIDE RECORDS SUMMARY | 2021-10-14 12:36 | XMS_ITS | Encounter Summary ---
:1940 Author Organization [facility] Address [address] [place] [address] Care Team Providers Name Role Phone Unavailable [...] 04/16/2020 1:25 PM Re sults for this POTATO SORTER procedure are i n the results section. documented in this encounter Results Pelvis-Oncology Image Exam (04/16/2020 1:25 PM POTATO SORTER) Specimen (Source) Anatomical Collection Method Collection Time Re ceived Time Location / / Volume Laterality 04/16/2020 1:25 PM POTATO SORTER Narrative [facility] - 04/16/2020 1:28 PM POTATO SORTER This order has been created and auto-finalized [...]
--- OUTSIDE RECORDS SUMMARY | 2021-10-14 12:36 | XMS_ITS | Encounter Summary ---
:1940 Author Organization [facility] Address [address] [place] [address] Care Team Providers Name Role Phone Unavailable Primary Care Provider Unavailable Reason for Referral Outpatient (Routine) - Closed Specialty Diagnoses / Procedures Referred By Contact Refer red To Contact Radiation Oncology Bethany Natarajan [facility] [address] [place] [address] Referral ID Status Reason Start Date Expiration Date Visits Requ ested Visits Authorized [id number] Closed 05/15/2020 05/15/2021 1 1 Scheduling Instructions Deedee first to assess skin Radiation Therapy (Routine) - Canceled Specialty Diagnoses / Procedures Referred By Contact Refer red To Contact Diagnoses 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 Radiation Oncology [place] can be contacted at anytime for any questions or concerns. Patient stated a full understanding to the plan of care discussed today. Toxicities reviewed with Dr. Natarajan today. Signed by: Deedee Fry R.N. 05/15/2020 2:59 PM CDT [facility] Radiation Therapy [facility] [address] [place] [address] documented in this encounter Plan of Treatment [...]
--- OUTSIDE RECORDS SUMMARY | 2021-10-14 12:36 | XMS_ITS | Encounter Summary ---
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 [facility] Procedures Prior Auth Rad Tx [place] IMRT COMPLEX [address] [place] [address] Referral ID Status Reason Start Date Expiration Date Visits Requ ested Visits Authorized [id number] Closed 04/16/2020 04/16/2021 15 15 Encounter Details Date Type Department Care Team Description 04/25/2020 Hospital Encounter Department of Radiation Shaneka Natarajan I., Oncology in [place], [place]inne [place] [address] [facility] [address] [place] [phone] Social History Tobacco Use Types Packs/Day Years [...]
--- OUTSIDE RECORDS SUMMARY | 2021-10-14 12:36 | XMS_ITS | Encounter Summary ---
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 [facility] Procedures Prior Auth Rad Tx [place] IMRT COMPLEX [address] [place] [address] Referral ID Status Reason Start Date Expiration Date Visits Requ ested Visits Authorized [id number] Closed 04/16/2020 04/16/2021 15 15 Encounter Details Date Type Department Care Team Description 05/14/2020 Hospital Encounter Department of Radiation Shaneka Natarajan I., Oncology in [place] [address] [facility] [address] [place] [phone] Social History Tobacco Use Types Packs/Day Years [...]
--- OUTSIDE RECORDS SUMMARY | 2021-10-14 12:36 | XMS_ITS | Encounter Summary ---
:1940 Author Organization [facility] Address [address] [place] [address] Care Team Providers Name Role Phone Unavailable [...] 12:20 Result s for this EXAM PM GLOBAL LOGISTICS ANALYST procedure are i n the results section. documented in this encounter Results DERMATOLOGY IMAGE EXAM (02/12/2017 12:20 PM GLOBAL LOGISTICS ANALYST) Specimen (Source) Anatomical Collection Method Collection Time Re ceived Time Location / / Volume Laterality 02/12/2017 12:00 PM GLOBAL LOGISTICS ANALYST Narrative IIMS - 02/12/2017 2:49 PM GLOBAL LOGISTICS ANALYST This order has been created and auto-finalized [...]
--- OUTSIDE RECORDS SUMMARY | 2021-10-14 12:36 | XMS_ITS | Encounter Summary ---
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 [facility] Procedures Prior Auth Rad Tx [place] IMRT COMPLEX [address] [place] [address] Referral ID Status Reason Start Date Expiration Date Visits Requ ested Visits Authorized [id number] Closed 04/16/2020 04/16/2021 15 15 Encounter Details Date Type Department Care Team Description 04/30/2020 Hospital Encounter Department of Radiation Shaneka Natarajan I., Oncology in [place], [place] [address] [facility] [address] [place] [phone] Social History Tobacco Use Types Packs/Day Years [...]
--- OUTSIDE RECORDS SUMMARY | 2021-10-14 12:36 | XMS_ITS | Encounter Summary ---
:1940 Author Organization [facility] Address [address] [place] [address] Care Team Providers Name Role Phone Unavailable Primary Care Provider Unavailable Reason for Visit Reason Comments Med Refill Encounter Details Date Type Department Care Team Description 07/09/2020 Clinical Communication Department of Bethany Natarajan ed Refill Radiation Oncology in [place] Adhikari [facility] [address] [facility] [address] [place] [address] [phone] Social History Tobacco Use Types Packs/Day Years [...] would like a refill today. Phone number: [phone] Is it okay to leave a voicemail on answering machine with test results? Yes Pharmacy (if medication related): [facility] [address] [place] [address] [address] [facility] [address] [facility] [address] Paula Hall documented in this encounter Plan of Treatment Not on filedocumented as of this encounter Visit Diagnoses Not on filedocumented in this encounter
--- OUTSIDE RECORDS SUMMARY | 2021-10-14 12:36 | XMS_ITS | Encounter Summary ---
:1940 Author Organization [facility] Address [address] [place] [address] Care Team Providers Name Role Phone Unavailable [...] 04/16/2020 1:28 PM Re sults for this MAINTENANCE DEPARTMENT TECHNICIAN procedure are i n the results section. documented in this encounter Results Leg-Oncology Image Exam (04/16/2020 1:28 PM MAINTENANCE DEPARTMENT TECHNICIAN) Specimen (Source) Anatomical Collection Method Collection Time Re ceived Time Location / / Volume Laterality 04/16/2020 1:25 PM MAINTENANCE DEPARTMENT TECHNICIAN Narrative IIMS - 04/16/2020 1:28 PM MAINTENANCE DEPARTMENT TECHNICIAN This order has been created and [...]
--- OUTSIDE RECORDS SUMMARY | 2021-10-14 12:36 | XMS_ITS | Encounter Summary ---
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 [facility] Procedures Prior Auth Rad Tx [place] IMRT COMPLEX [address] [place] [address] Referral ID Status Reason Start Date Expiration Date Visits Requ ested Visits Authorized [id number] Closed 04/16/2020 04/16/2021 15 15 Encounter Details Date Type Department Care Team Description 05/07/2020 Hospital Encounter Department of Radiation Shaneka Natarajan I., Oncology in [place] [address] [facility] [address] [place] [phone] Social History Tobacco Use Types Packs/Day Years [...]
--- OUTSIDE RECORDS SUMMARY | 2021-10-14 12:36 | XMS_ITS | Encounter Summary ---
:1940 Author Organization [facility] Address [address] [place] [address] Care Team Providers Name Role Phone Unavailable Primary Care Provider Unavailable Reason for Referral Specialty Diagnoses / Procedures Referred By Contact Refer red To Contact Bethany Natarajan M.D. 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 [facility] Procedures Initial Rad Onc Treatment Planning CT Simulation [address] [place] [address] [place] [address] Referral ID Status Reason Start Date Expiration Date Visits Requ ested Visits Authorized [id number] Closed 04/10/2020 04/10/2021 1 1 FACTURING ENGINEER AUTOMOTIVE Encounter Details Date Type Department Care Team Description 04/10/2020 Orders Only Department of Bethany Natraajan Malignant N eoplasm Of Lower Limb Basal Cell Carcinoma Left (Primary Dx); Radiation Oncology in [place] Adhikari 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; [facility] a [address] [facility] Malignant Neoplasm Of Lower Limb Basal C ell Carcinoma Right [address] [place] [phone] Social History Tobacco Use Types Packs/Day Years [...] Treatment Planning CT Simulation (04/16/2020 2:00 PM MANUFACTURING ENGINEER AUTOMOTIVE) Specimen (Source) Anatomical Location Collection Method / Collectio n Time Received Time / Laterality Volume Narrative LAYO METZ - 04/16/2020 2:00 PM MANUFACTURING ENGINEER AUTOMOTIVE Coral Alonso RTT ? 04/16/2020 ??4:02 PM Initial Rad Onc Treatment Planning CT Si mulation Date/Time: 04/16/2020 3:57 PM Performed by: Bethany Natarajan M.D. Authorized by: Bethany Natarajna M.D. Bethany Natarajan M.D. RADIATION ONCOLOGY ORDERABLE S Performing Organization Address City/State/ZIP Code Phon e Number [place] documented in this encounter [...]
--- OUTSIDE RECORDS SUMMARY | 2021-10-14 12:36 | XMS_ITS | Encounter Summary ---
:1940 Author Organization 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 [facility] Procedures Prior Auth Rad Tx [place] IMRT COMPLEX [address] [place] [address] Referral ID Status Reason Start Date Expiration Date Visits Requ ested Visits Authorized [id number] Closed 04/16/2020 04/16/2021 15 15 Encounter Details Date Type Department Care Team Description 04/24/2020 Hospital Encounter Department of Radiation Shaneka Natarajan I., Oncology in [place], [place] [address] [facility] [address] [place] [phone] Social History Tobacco Use Types Packs/Day Years [...]
--- OUTSIDE RECORDS SUMMARY | 2021-10-14 12:36 | XMS_ITS | Encounter Summary ---
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 [facility] Procedures Prior Auth Rad Tx [place] IMRT COMPLEX [address] [place] [address] Referral ID Status Reason Start Date Expiration Date Visits Requ ested Visits Authorized [id number] Closed 04/16/2020 04/16/2021 15 15 Encounter Details Date Type Department Care Team Description 05/02/2020 Hospital Encounter Department of Radiation Shaneka Natarajan I., Oncology in [place] [address] [facility] [address] [place] [phone] Social History Tobacco Use Types Packs/Day Years [...]
--- OUTSIDE RECORDS SUMMARY | 2021-10-14 12:36 | XMS_ITS | Encounter Summary ---
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 [facility] Procedures Prior Auth Rad Tx [place] IMRT COMPLEX [address] [place] [address] Referral ID Status Reason Start Date Expiration Date Visits Requ ested Visits Authorized [id number] Closed 04/16/2020 04/16/2021 15 15 Encounter Details Date Type Department Care Team Description 05/09/2020 Hospital Encounter Department of Radiation Shaneka Natarajan I., Oncology in [place] [address] [facility] [address] [place] [phone] Social History Tobacco Use Types Packs/Day Years [...]
--- OUTSIDE RECORDS SUMMARY | 2021-10-14 12:36 | XMS_ITS | Encounter Summary ---
:1940 Author Organization [facility] Address [address] [place] [address] Care Team Providers Name Role Phone Unavailable [...] 12:25 Result s for this EXAM PM CASHIER GREETER procedure are i n the results section. documented in this encounter Results DERMATOLOGY IMAGE EXAM (02/12/2017 12:25 PM CASHIER GREETER) Specimen (Source) Anatomical Collection Method Collection Time Re ceived Time Location / / Volume Laterality 02/12/2017 12:00 PM CASHIER GREETER Narrative IIMS - 02/12/2017 2:50 PM CASHIER GREETER This order has been created and auto-finalized [...]
--- OUTSIDE RECORDS SUMMARY | 2021-10-14 12:36 | XMS_ITS | Encounter Summary ---
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 [facility] Procedures Prior Auth Rad Tx [place] IMRT COMPLEX [address] [place] [address] Referral ID Status Reason Start Date Expiration Date Visits Requ ested Visits Authorized [id number] Closed 04/16/2020 04/16/2021 15 Encounter Details Date Type Department Care Team Description 05/06/2020 Hospital Encounter Department of Radiation Shaneka Natarajan I., Oncology in [place] [address] [facility] [address] [place] [phone] Social History Tobacco Use Types Packs/Day Years [...]
--- OUTSIDE RECORDS SUMMARY | 2021-10-14 12:36 | XMS_ITS | Encounter Summary ---
:1940 Author Organization [facility] Address [address] [place] [address] Care Team Providers Name Role Phone Unavailable Primary Care Provider Unavailable Encounter Details Date Type Department Care Team Description 02/12/2017 Hospital Encounter HX RST DERM SURG OP Avni Gaffney [facility] M.D. [address] [place] [address] (Wo rk) Social History Tobacco Use Types Packs/Day Years Used Date Smoking Tobacco: Never Assessed Sex Assigned at Date Recorded Not on file documented as of this encounter Last Filed Vital Signs Vital Sign Reading Time Taken Comments Blood Pressure 141/85 02/12/2017 8:05 AM MATTRESS FILLING MACHINE TENDER Vital sign result from Clinical Notes. Pulse 89 02/12/2017 8:05 AM MATTRESS FILLING MACHINE TENDER Vital sign result from Clinical Notes. Temperature [...]
--- OUTSIDE RECORDS SUMMARY | 2021-10-14 12:37 | XMS_ITS | Encounter Summary ---
:1940 Author Organization [facility] Address [address] [place] [address] Care Team Providers Name Role Phone Unavailable [...] 12:10 Result s for this EXAM PM UPHOLSTERY ESTIMATOR procedure are i n the results section. documented in this encounter Results DERMATOLOGY IMAGE EXAM (02/12/2017 12:10 PM UPHOLSTERY ESTIMATOR) Specimen (Source) Anatomical Collection Method Collection Time Re ceived Time Location / / Volume Laterality 02/12/2017 12:00 PM UPHOLSTERY ESTIMATOR Narrative IIMS - 02/12/2017 2:49 PM UPHOLSTERY ESTIMATOR This order has been created and auto-finalized [...]
--- OUTSIDE RECORDS SUMMARY | 2021-10-14 12:37 | XMS_ITS | Encounter Summary ---
:1940 Author Organization [facility] Address [address] [place] [address] Care Team Providers Name Role Phone Unavailable [...] 12:05 Result s for this EXAM PM BATTERYMAN procedure are i n the results section. documented in this encounter Results DERMATOLOGY IMAGE EXAM (02/12/2017 12:05 PM BATTERYMAN) Specimen (Source) Anatomical Collection Method Collection Time Re ceived Time Location / / Volume Laterality 02/12/2017 12:00 PM BATTERYMAN Narrative IIMS - 02/12/2017 2:49 PM BATTERYMAN This order has been created and auto-finalized [...]
--- OUTSIDE RECORDS SUMMARY | 2021-10-14 12:37 | XMS_ITS | Encounter Summary ---
:1940 Author Organization [facility] Address [address] [place] [address] Care Team Providers Name Role Phone Unavailable [...] 12:00 Result s for this EXAM PM MEDICAL TECH procedure are i n the results section. documented in this encounter Results DERMATOLOGY IMAGE EXAM (01/19/2017 12:00 PM MEDICAL TECH) Specimen (Source) Anatomical Location Collection Method / Collectio n Time Received Time / Laterality Volume Narrative IIMS - 01/19/2017 4:19 PM MEDICAL TECH This order has been created and auto-finalized [...]
--- OUTSIDE RECORDS SUMMARY | 2021-10-14 12:37 | XMS_ITS | Encounter Summary ---
:1940 Author Organization [facility] Address [address] [place] [address] Care Team Providers Name Role Phone Unavailable [...] 12:00 Result s for this EXAM PM BUSINESS SERVICES DIRECTOR procedure are i n the results section. documented in this encounter Results DERMATOLOGY IMAGE EXAM (02/12/2017 12:00 PM BUSINESS SERVICES DIRECTOR) Specimen (Source) Anatomical Collection Method Collection Time Re ceived Time Location / / Volume Laterality 02/12/2017 12:00 PM BUSINESS SERVICES DIRECTOR Narrative IIMS - 02/12/2017 2:49 PM BUSINESS SERVICES DIRECTOR This order has been created and [...]
== END 2021-10-14 12:34 | disposition home or self-care (01) ==
LOC: WOUND 12:33
PROVIDERS: PCP Family Medicine; Visit Provider Nurse Practitioner Family
DX: L59.8 Other specified disorders of the skin and subcutaneous tissue related to radiation (principal)
CPT/HCPCS: 97597

== ENCOUNTER 2021-10-16 15:01 | Outpatient (CLI) | payer OTHER, SELFPAY ==
--- OUTSIDE RECORDS SUMMARY | 2021-10-16 15:03 | XMS_ITS | Encounter Summary ---
:1940 Author Organization [facility] Address [address] [place] [address] Care Team Providers Name Role Phone Unavailable Primary Care Provider Unavailable Reason for Visit Reason Comments Med Refill Encounter Details Date Type Department Care Team Description 08/08/2020 Clinical Communication Department of Travis Hall Refjoanne Radiation Oncology [place] [facility] [place] [address] [place] [phone] Social History Tobacco Use Types Packs/Day Years Used Date Smoking Tobacco: Every Day Sex Assigned at Date Recorded Not on file documented as of this encounter Miscellaneous Notes Telephone Encounter - Deedee Fry R.N. - 08/08/2020 1:06 PM CDT Information Discussed I called and left voicemail on patient's phone requesting call back. Patient reported that he was taking Shirley twice a day at his last in office visit with us. PLAN Dr. Nataarjan and I will send through refill on Shirley to get him through until August 16, 2020, when he is scheduled for follow up with Dr. Natarajan in [place]. Disposition/Recommendation: I requested call back, refill will [...] can be done or not Phone number: [phone] Is it okay to leave a voicemail on answering machine with test results? Yes Pharmacy (if medication related): [facility] [address] [place] [id number] Paula Hall documented in this encounter Plan of Treatment Not on filedocumented as of this encounter Visit Diagnoses Not on filedocumented in this encounter
--- OUTSIDE RECORDS SUMMARY | 2021-10-16 15:03 | XMS_ITS | Encounter Summary ---
:1940 Author Organization [facility] Address [address] [place] [address] Care Team Providers Name Role Phone Unavailable Primary Care Provider Unavailable Reason for Referral Outpatient (Routine) - Closed Specialty Diagnoses / Procedures Referred By Contact Refer red To Contact Radiation Oncology Bethany Natarajan [facility] M.D. [address] [place] [address] Referral ID Status Reason Start Date Expiration Date Visits Requ ested Visits Authorized [id number] Closed 05/28/2020 05/28/2021 1 1 Scheduling Instructions 2-3 weeks with [facility] and Deedee Outpatient (Routine) - Closed Specialty Diagnoses / Procedures Referred By Contact Refer red To Contact Radiation Oncology Bethany Natarajan [facility] M.D. [address] [place] [address] Referral ID Status Reason Start Date Expiration Date Visits Requ ested Visits Authorized [id number] Closed 05/15/2020 05/15/2021 1 1 Scheduling Instructions Deedee first to assess skin Reason for Visit Outpatient (Routine) - Closed Specialty Diagnoses / Procedures Referred By Contact Refer red To Contact Radiation Oncology Bethany Natarajan [facility] M.D. [address] [place] [address] Referral ID Status Reason Start Date Expiration Date Visits Requ ested Visits Authorized [id number] Closed 05/15/2020 05/15/2021 1 1 Encounter Details Date Type Department Care Team Description 05/28/2020 Hospital Encounter Department Bethany Dickey Neoplasm Of Lower Limb Basal Cell Carcinoma Left (Primary Dx); Radiation Oncology [place] Adhikari Malignant Neoplasm Of Lower Limb Basal C ell Carcinoma Right; in [address] 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 [place], [place] [address] [facility] [address] [place], [place] [phone] (Work) [phone] Social History Tobacco Use Types Packs/Day Years [...] documented as of this encounter Progress Notes Bethnay Natarajan M.D. - 05/28/2020 11:00 AM CDT [...] Deedee Fry R.N. 05/28/2020 1:16 PM CDT [facility] [address] [place] [address] ATTESTATION FOR FOLLOW-UP VISIT I saw and [...]
--- OUTSIDE RECORDS SUMMARY | 2021-10-16 15:03 | XMS_ITS | Encounter Summary ---
:1940 Author Organization [facility] Address [address] [place] [address] Care Team Providers Name Role Phone Unavailable Primary Care Provider Unavailable Encounter Details Date Type Department Care Team Description 07/10/2020 Clinical Communication Department of Bethany Natarajan Radiation Oncology in [place] Adhikari [facility] [place] [facility] [address] [facility] [address] [place] [phone] Social History Tobacco Use Types Packs/Day Years [...] informed him that a prescription for the [place] has been sent to the [facility] in [place]. Phone number: [phone] Is it okay to leave a voicemail on answering machine with test results? Yes Pharmacy (if medication related): N/A Elif Parkinson documented in this encounter Plan of Treatment Not on filedocumented as of this encounter Visit Diagnoses Not on filedocumented in this encounter
--- OUTSIDE RECORDS SUMMARY | 2021-10-16 15:03 | XMS_ITS | Clinical Summary ---
:1940 Author Organization [facility] Address [address] [place] [address] Care Team Providers Name Role Phone Unavailable Primary Care Provider Unavailable Source Comments Patient records contain information from all sites at [facility]. For routine questions regarding patient records, call [phone] during business hours, M-F 8:00 AM - 5:00 PM Central Time. Record requests for emergency care only can be directed to [phone] at any time.[facility] Allergies Active Allergy Reactions Severity Noted Date [...] Phone Addre ss Type Group [facility] [id number] 2021-Present [phone] [address] [place] [address]
--- OUTSIDE RECORDS SUMMARY | 2021-10-16 15:03 | XMS_ITS | Encounter Summary ---
:1940 Author Organization [facility] Address [address] [place] [address] Care Team Providers Name Role Phone Unavailable Primary Care Provider Unavailable Encounter Details Date Type Department Care Team Description 09/27/2020 Clinical Communication Department of Bethany Natarajan Radiation Oncology in [place] Adhikari [facility] [address] [facility] [address] [place] [phone] Social History Tobacco Use Types Packs/Day Years [...]
--- OUTSIDE RECORDS SUMMARY | 2021-10-16 15:03 | XMS_ITS ---
:1940 Author Organization [facility] Address [address] [place] [address] Care Team Providers Name Role Phone Unavailable [...] Elapsed Days Session Dose Total Dos e [id number] 05/15/2020 21 300 cGy 4,500 cGy [id number] 05/06/2020 12 425 cGy 3,825 cGy [id number] 04/26/2020 2 700 cGy 2,100 cGy
--- OUTSIDE RECORDS SUMMARY | 2021-10-16 15:03 | XMS_ITS | Encounter Summary ---
:1940 Author Organization [facility] Address [address] [place] [address] Care Team Providers Name Role Phone Unavailable Primary Care Provider Unavailable Reason for Visit Reason Comments Med Refill Encounter Details Date Type Department Care Team Description 07/09/2020 Clinical Communication Department of Bethany Natarajan ed Refill Radiation Oncology in [place] Adhikari [facility] [address] [facility] [address] [place] [address] [phone] Social History Tobacco Use Types Packs/Day Years [...] would like a refill today. Phone number: [phone] Is it okay to leave a voicemail on answering machine with test results? Yes Pharmacy (if medication related): [facility] [address] [place] [address] [facility] [address] [facility] [id number] Paula Hall documented in this encounter Plan of Treatment Not on filedocumented as of this encounter Visit Diagnoses Not on filedocumented in this encounter
--- OUTSIDE RECORDS SUMMARY | 2021-10-16 15:03 | XMS_ITS | Encounter Summary ---
:1940 Author Organization [facility] Address [address] [place] [address] Care Team Providers Name Role Phone Unavailable Primary Care Provider Unavailable Reason for Visit Reason Comments Follow-up Encounter Details Date Type Department Care Team Description 10/30/2020 Clinical Communication Department of Bethany Natarajanzuhair Radiation Oncology in [place] Adhikari [facility] [address] [facility] [address] [place] [address] [phone] Social History Tobacco Use Types Packs/Day Years [...] center to help with this. Phone number: [phone] Is it okay to leave a voicemail on answering machine with test results? No Pharmacy (if medication related): N/A Elif Parkinson documented in this encounter Plan of Treatment Not on filedocumented as of this encounter Visit Diagnoses Not on filedocumented in this encounter
--- OUTSIDE RECORDS SUMMARY | 2021-10-16 15:03 | XMS_ITS | Encounter Summary ---
:1940 Author Organization [facility] Address [address] [place] [address] Care Team Providers Name Role Phone Unavailable Primary Care Provider Unavailable Reason for Referral Specialty Diagnoses / Procedures Referred By Contact Refer red To Contact Dona Zuniga M.D. [facility] Region [address] [place] [address] Referral ID Status Reason Start Date Expiration Date Visits Requ ested Visits Authorized Encounter Details Date Type Department Care Team Description 11/01/2020 Orders Only [facility] PCP [facility] MNT Sa greyson Zuniga M.D. [address] [place] [address] [phone] (Wo rk) Social History Tobacco [...]
--- OUTSIDE RECORDS SUMMARY | 2021-10-16 15:03 | XMS_ITS | Encounter Summary ---
:1940 Author Organization [facility] Address [address] [place] [address] Care Team Providers Name Role Phone Unavailable Primary Care Provider Unavailable Reason for Referral Outpatient (Routine) - Closed Specialty Diagnoses / Procedures Referred By Contact Refer jose luis To Contact Radiation Oncology Bethany Natarajan [facility] Feli Gomez M.D. [address] [place] [phone] Referral ID Status Reason Start Date Expiration Date Visits Requ ested Visits Authorized [id number] Closed 05/28/2020 05/28/2021 1 1 Scheduling Instructions 2-3 weeks with CECY and Deedee Reason for Visit Outpatient (Routine) - Closed Specialty Diagnoses / Procedures Referred By Contact Sofi amaya To Contact Radiation Oncology Bethany Natarajan [facility] Feli Gomez M.D. [address] [place] [phone] Referral ID Status Reason Start Date Expiration Date Visits Requ ested Visits Authorized [id number] Closed 05/28/2020 05/28/2021 1 1 Encounter Details Date Type Department Care Team Description 06/11/2020 Hospital Encounter Department of Bethany Natarajan (Primary Dx) Radiation Oncology [place] Adhikari in [place], [address] [place] [address] [address]21 [facility] [address] [place], [place] [phone] (Work) [phone] Social History Tobacco Use Types Packs/Day Years [...] a 8 out of 10.He takes 1 [place] in the morning and 1 at bedtime. [...] will send through prescription refill on his [place] to his preferred pharmacy today. Patient is to not exceed 3200 mg of Ibuprofen a day. We encouraged patient to trial warm compresses for acute right eye mattering. We will send through referral to [facility]. We will see Mr. Tl Lugo in a follow-up visit in late July. The patient was told to contact us sooner with questions or concerns. He verbally expressed his understanding of the plan. Signed by: Deedee Fry R.N. 06/11/2020 1:09 PM CDT [facility] [address] [place] [address] documented in this encounter Plan of Treatment Scheduled Referrals Name Type Priority Associated Order Schedule Diagnoses Radiation Oncology Outpatient Referral Routine On ce for 1 office visit Occurrences sta rting (clinic) 06/11/2020 unti l 06/11/2020 documented as of this encounter Visit Diagnoses Diagnosis Red Eye - Primary documented in this encounter
--- OUTSIDE RECORDS SUMMARY | 2021-10-16 15:03 | XMS_ITS | Encounter Summary ---
:1940 Author Organization [facility] Address [address] [place] [address] Care Team Providers Name Role Phone Unavailable Primary Care Provider Unavailable Reason for Referral Specialty Diagnoses / Procedures Referred By Contact Refer red To Contact Bethany Natarajan M.D. [facility] Region [address] [place] [phone] Referral ID Status Reason Start Date Expiration Date Visits Requ ested Visits Authorized COORDINATOR Encounter Details Date Type Department Care Team Description 04/30/2020 - Hospital Encounter Department of Aramis Natarajan M.D. 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
--- OUTSIDE RECORDS SUMMARY | 2021-10-16 15:04 | XMS_ITS | Encounter Summary ---
:1940 Author Organization [facility] Address [address] [place] [address] Care Team Providers Name Role Phone Unavailable Primary Care Provider Unavailable Reason for Referral Outpatient (Routine) - Closed Specialty Diagnoses / Procedures Referred By Contact Refer red To Contact Diagnoses Swelling Testicle Garrison Casas M.D. 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 The patient will continue with treatment as planned. Signed by: Garrison Casas M.D. 05/08/2020 2:54 PM CDT [facility] Radiation Therapy Center [address] [place] [address] documented in this encounter Plan of Treatment [...]
--- OUTSIDE RECORDS SUMMARY | 2021-10-16 15:04 | XMS_ITS | Encounter Summary ---
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 [facility] Procedures Prior Auth Rad Tx [place] IMRT COMPLEX [address] [place] [address] Referral ID Status Reason Start Date Expiration Date Visits Requ ested Visits Authorized [id number] Closed 04/16/2020 04/16/2021 15 15 Encounter Details Date Type Department Care Team Description 05/03/2020 Hospital Encounter Department of Radiation Shaneka Natarajan I., [place]cology [place] [address] [facility] [address] [place] [phone] Social History Tobacco Use Types Packs/Day Years [...]
--- OUTSIDE RECORDS SUMMARY | 2021-10-16 15:04 | XMS_ITS | Encounter Summary ---
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 [facility] Procedures Prior Auth Rad Tx [place] IMRT COMPLEX [address] [place] [address] Referral ID Status Reason Start Date Expiration Date Visits Requ ested Visits Authorized [id number] Closed 04/16/2020 04/16/2021 15 15 Encounter Details Date Type Department Care Team Description 05/01/2020 Hospital Encounter Department of Radiation Shaneka Natarajan I., Oncology in [place], [place] [address] [facility] [address] [place] [phone] Social History Tobacco Use Types Packs/Day Years [...]
--- OUTSIDE RECORDS SUMMARY | 2021-10-16 15:04 | XMS_ITS | Encounter Summary ---
:1940 Author Organization [facility] Address [address] [place] [address] Care Team Providers Name Role Phone Unavailable [...] 04/16/2020 1:28 PM Re sults for this BRIDGE PAINTER procedure are i n the results section. documented in this encounter Results Leg-Oncology Image Exam (04/16/2020 1:28 PM BRIDGE PAINTER) Specimen (Source) Anatomical Collection Method Collection Time Re ceived Time Location / / Volume Laterality 04/16/2020 1:25 PM BRIDGE PAINTER Narrative IIMS - 04/16/2020 1:28 PM BRIDGE PAINTER This order has been created and auto-finalized [...]
--- OUTSIDE RECORDS SUMMARY | 2021-10-16 15:04 | XMS_ITS | Encounter Summary ---
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 [facility] Procedures Prior Auth Rad Tx [place] IMRT COMPLEX [address] [place] [address] Referral ID Status Reason Start Date Expiration Date Visits Requ ested Visits Authorized [id number] Closed 04/16/2020 04/16/2021 15 15 Encounter Details Date Type Department Care Team Description 04/26/2020 Hospital Encounter Department of Radiation Shaneka Natarajan I., Oncology in [place], [place]inne [place] [address] [facility] [address] [place] [phone] Social History Tobacco Use Types Packs/Day Years [...]
--- OUTSIDE RECORDS SUMMARY | 2021-10-16 15:04 | XMS_ITS | Encounter Summary ---
:1940 Author Organization [facility] Address [address] [place] [address] Care Team Providers Name Role Phone Unavailable Primary Care Provider Unavailable Reason for Referral Outpatient (Routine) - Closed Specialty Diagnoses / Procedures Referred By Contact Refer red To Contact Radiation Oncology Bethany Natarajan [facility] [place] [address] [place] [address] Referral ID Status Reason Start Date Expiration Date Visits Requ ested Visits Authorized [id number] Closed 05/15/2020 05/15/2021 1 1 Scheduling Instructions Deedee first to assess skin Radiation Therapy (Routine) - Canceled Specialty Diagnoses / Procedures Referred By Contact Refer red To Contact Diagnoses 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 [address] [place], [place] [phone] (Work) [phone] Social History Tobacco Use Types Packs/Day Years [...] 2020 to complete skin assessment. Radiation Oncology [place] can be contacted at anytime for any questions or concerns. Patient stated a full understanding to the plan of care discussed today. Toxicities reviewed with Dr. Natarajan today. Signed by: Deedee Fry R.N. 05/15/2020 2:59 PM CDT [facility] Radiation Therapy Center [address] [place] [address] documented in this encounter Plan of Treatment [...]
--- OUTSIDE RECORDS SUMMARY | 2021-10-16 15:04 | XMS_ITS | Encounter Summary ---
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 [facility] Procedures Prior Auth Rad Tx [place] IMRT COMPLEX [address] [place] [address] Referral ID Status Reason Start Date Expiration Date Visits Requ ested Visits Authorized [id number] Closed 04/16/2020 04/16/2021 15 15 Encounter Details Date Type Department Care Team Description 04/29/2020 Hospital Encounter Department of Radiation Shaneka Natarajan I., Oncology in [place], [place] [address] [facility] [address] [place] [phone] Social History Tobacco Use Types Packs/Day Years [...]
--- OUTSIDE RECORDS SUMMARY | 2021-10-16 15:04 | XMS_ITS | Encounter Summary ---
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 [facility] Procedures Prior Auth Rad Tx [place] IMRT COMPLEX [address] [place] [address] Referral ID Status Reason Start Date Expiration Date Visits Requ ested Visits Authorized [id number] Closed 04/16/2020 04/16/2021 15 15 Encounter Details Date Type Department Care Team Description 05/09/2020 Hospital Encounter Department of Radiation Shaneka Natarajan I., [place]cology [place] [address] [facility] [address] [place] [phone] Social History Tobacco Use Types Packs/Day Years [...]
--- OUTSIDE RECORDS SUMMARY | 2021-10-16 15:04 | XMS_ITS | Encounter Summary ---
:1940 Author Organization [facility] Address [address] [place] [address] Care Team Providers Name Role Phone Unavailable Primary Care Provider Unavailable Encounter Details Date Type Department Care Team Description 02/12/2017 Hospital Encounter HX RST DERM SURG OP Avni Gaffney [facility] M.D. [address] [place] [address] (Wo rk) Social History Tobacco Use Types Packs/Day Years Used Date Smoking Tobacco: Never Assessed Sex Assigned at Date Recorded Not on file documented as of this encounter Last Filed Vital Signs Vital Sign Reading Time Taken Comments Blood Pressure 141/85 02/12/2017 8:05 AM LAW INSTRUCTOR Vital sign result from Clinical Notes. Pulse 89 02/12/2017 8:05 AM LAW INSTRUCTOR Vital sign result from Clinical Notes. Temperature [...]
--- OUTSIDE RECORDS SUMMARY | 2021-10-16 15:04 | XMS_ITS | Encounter Summary ---
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?F) 04/26/2020 2:31 PM COMMERCIAL ENERGY AUDITOR Respiratory Rate - - Oxygen Saturation - - Inhaled Oxygen Concentration - - Weight 95.5 kg (210 lb 8.6 oz) 04/26/2020 2:31 PM COMMERCIAL ENERGY AUDITOR Height - - Body Mass Index - [...] 700 1400 3500 04/24/2020 04/25/2020 1 F1_RTInguinal 950 872 3468 04/24/2020 04/25/2020 1 F1_LT Leg 277 674 0056 04/24/2020 04/25/2020 1 Course Summary 04/24/2020 04/25/2020 [...] by: Deedee Fry R.N. 04/26/2020 2:54 PM COMMERCIAL ENERGY AUDITOR ATTESTATION FOR MANAGEMENT VISIT I saw and evaluated the patient and participated in the gregory portions of the service as noted above. I reviewed the documentation of Ms. Deedee Fry RN and agree with the findings and plan. The patient appears well on exam. We will continue with radiation as planned and monitor weekly. Bethany Natarajan M.D., 04/26/2020 ERCIAL ENERGY AUDITOR documented in this encounter Plan of Treatment [...]
--- OUTSIDE RECORDS SUMMARY | 2021-10-16 15:04 | XMS_ITS | Encounter Summary ---
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 [facility] Procedures Prior Auth Rad Tx [place] IMRT COMPLEX [address] [place] [address] Referral ID Status Reason Start Date Expiration Date Visits Requ ested Visits Authorized [id number] Closed 04/16/2020 04/16/2021 15 Encounter Details Date Type Department Care Team Description 05/06/2020 Hospital Encounter Department of Radiation Shaneka Natarajan I., [place]cology [place] [address] [facility] [address] [place] [phone] Social History Tobacco Use Types Packs/Day Years [...]
--- OUTSIDE RECORDS SUMMARY | 2021-10-16 15:04 | XMS_ITS | Encounter Summary ---
:1940 Author Organization [facility] Address [address] [place] [address] Care Team Providers Name Role Phone Unavailable Primary Care Provider Unavailable Encounter Details Date Type Department Care Team Description 05/15/2020 Hospital Encounter Department of Radiation Shaneka Natarajan I., Oncology in [facility] [address] [facility] [address] [place] [phone] Social History Tobacco Use Types Packs/Day Years [...]
--- OUTSIDE RECORDS SUMMARY | 2021-10-16 15:04 | XMS_ITS | Encounter Summary ---
:1940 Author Organization [facility] Address [address] [place] [address] Care Team Providers Name Role Phone Unavailable [...] 04/16/2020 1:28 PM Re sults for this MARBLE INSTALLATION HELPER procedure are i n the results section. documented in this encounter Results Leg-Oncology Image Exam (04/16/2020 1:28 PM MARBLE INSTALLATION HELPER) Specimen (Source) Anatomical Collection Method Collection Time Re ceived Time Location / / Volume Laterality 04/16/2020 1:25 PM MARBLE INSTALLATION HELPER Narrative IIMS - 04/16/2020 1:28 PM MARBLE INSTALLATION HELPER This order has been created and auto-finalized [...]
--- OUTSIDE RECORDS SUMMARY | 2021-10-16 15:04 | XMS_ITS | Encounter Summary ---
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 I encouraged him to [...] Garrison Casas M.D. 05/07/2020 4:51 PM CDT [facility] [address] [place] [address] documented in this encounter Plan of Treatment [...]
--- OUTSIDE RECORDS SUMMARY | 2021-10-16 15:04 | XMS_ITS | Encounter Summary ---
:1940 Author Organization [facility] Address [address] [place] [address] Care Team Providers Name Role Phone Unavailable [...] 12:20 Result s for this EXAM PM REGIONAL PROJECT MANAGER procedure are i n the results section. documented in this encounter Results DERMATOLOGY IMAGE EXAM (02/12/2017 12:20 PM REGIONAL PROJECT MANAGER) Specimen (Source) Anatomical Collection Method Collection Time Re ceived Time Location / / Volume Laterality 02/12/2017 12:00 PM REGIONAL PROJECT MANAGER Narrative IIMS - 02/12/2017 2:49 PM REGIONAL PROJECT MANAGER This order has been created and auto-finalized [...]
--- OUTSIDE RECORDS SUMMARY | 2021-10-16 15:04 | XMS_ITS | Encounter Summary ---
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 [facility] Procedures Prior Auth Rad Tx [place] IMRT COMPLEX [address] [place] [address] Referral ID Status Reason Start Date Expiration Date Visits Requ ested Visits Authorized [id number] Closed 04/16/2020 04/16/2021 15 15 Encounter Details Date Type Department Care Team Description 05/08/2020 Hospital Encounter Department of Radiation Shaneka Natarajan I., [place] [address] [facility] [address] [place] [phone] Social History Tobacco Use Types Packs/Day Years [...]
--- OUTSIDE RECORDS SUMMARY | 2021-10-16 15:04 | XMS_ITS | Encounter Summary ---
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 [facility] Procedures Prior Auth Rad Tx [place] IMRT COMPLEX [address] [place], [place] [address] Referral ID Status Reason Start Date Expiration Date Visits Requ ested Visits Authorized [id number] Closed 04/16/2020 04/16/2021 15 15 COMPRESSOR ENGINEER Encounter Details Date Type Department Care Team Description 04/16/2020 Orders Only Department of Bethany Natarajan N eoplasm Of Radiation Oncology in [place] Adhikari Lower Limb Squamous [place], [facility] [address] RUST Cell Carcinoma Left [address] [place], [place] (Primary Dx) [place] [phone] Social History Tobacco Use Types Packs/Day Years [...]
--- OUTSIDE RECORDS SUMMARY | 2021-10-16 15:04 | XMS_ITS | Encounter Summary ---
:1940 Author Organization [facility] Address [address] [place] [address] Care Team Providers Name Role Phone Unavailable Primary Care Provider Unavailable Reason for Visit Reason Comments Lab Monitoring Encounter Details Date Type Department Care Team Description 04/19/2020 Documentation Department of Radiation Deedee Fry, Lab Monitoring Oncology in [facility] [address] [facility] [address] [place] [phone] (Wo rk) Social History Tobacco Use Types Packs/Day Years Used Date Smoking Tobacco: Every Day Sex Assigned at Date Recorded Not on file documented as of this encounter Progress Notes Deedee Fry, RJhonN. - 04/19/2020 10:39 AM CST Lab result entered in NG TUMBLER OPERATOR documented in this encounter Plan of Treatment Not on filedocumented as of this encounter Procedures Procedure Name Priority Date/Time Associated Diagnosis Comme nts LABEXT SARS Routine 04/17/2020 12:00 AM Results for this CORONAVIRUS-2 MIXING TUMBLER OPERATOR procedure are in (COVID-19) RNA the results section. documented in this encounter Results EXT SARS Coronavirus-2 (COVID-19) RNA (04/17/2020 12:00 AM MIXING TUMBLER OPERATOR) [facility] Method Time Signature EXT Undetected Inconclus [facility] SARS-CoV-2 sylvia, LABORATORIES - RNA Indetermi [facility] Invalid, Negative, Not Detected, Undetecte d, Other (specify in comment) Specimen (Source) Anatomical Location Collection Method / Collectio n Time Received Time / Laterality Volume Swab 04/17/2020 Bethany Natarajan M.D. LAB MICROBIOLOGY - GENERAL O RDERABLES Performing Organization Address City/State/ZIP Code Phon e Number [facility] - [address] [place], [place] [address] [facility] documented in this encounter Visit Diagnoses Not on filedocumented in this encounter
--- OUTSIDE RECORDS SUMMARY | 2021-10-16 15:04 | XMS_ITS | Encounter Summary ---
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
--- OUTSIDE RECORDS SUMMARY | 2021-10-16 15:04 | XMS_ITS | Encounter Summary ---
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 [facility] Procedures Prior Auth Rad Tx [place] IMRT COMPLEX [address] [place] [address] Referral ID Status Reason Start Date Expiration Date Visits Requ ested Visits Authorized [id number] Closed 04/16/2020 04/16/2021 15 15 Encounter Details Date Type Department Care Team Description 04/25/2020 Hospital Encounter Department of Radiation Shaneka Natarajan I., Oncology in [place], [place] [address] [facility] [address] [place] [phone] Social History Tobacco Use Types Packs/Day Years [...]
--- OUTSIDE RECORDS SUMMARY | 2021-10-16 15:04 | XMS_ITS | Encounter Summary ---
:1940 Author Organization [facility] Address [address] [place] [address] Care Team Providers Name Role Phone Unavailable [...] 04/16/2020 1:25 PM Re sults for this WHITE METAL CORROSION PROOFER procedure are i n the results section. documented in this encounter Results Pelvis-Oncology Image Exam (04/16/2020 1:25 PM WHITE METAL CORROSION PROOFER) Specimen (Source) Anatomical Collection Method Collection Time Re ceived Time Location / / Volume Laterality 04/16/2020 1:25 PM WHITE METAL CORROSION PROOFER Narrative IIMS - 04/16/2020 1:28 PM WHITE METAL CORROSION PROOFER This order has been created and auto-finalized [...]
--- OUTSIDE RECORDS SUMMARY | 2021-10-16 15:04 | XMS_ITS | Encounter Summary ---
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 [facility] Procedures Prior Auth Rad Tx [place] IMRT COMPLEX [address] [place] [address] Referral ID Status Reason Start Date Expiration Date Visits Requ ested Visits Authorized [id number] Closed 04/16/2020 04/16/2021 15 15 Encounter Details Date Type Department Care Team Description 05/02/2020 Hospital Encounter Department of Radiation Shaneka Natarajan I., [place]cology in [place] [address] [facility] [address] [place] [phone] Social History Tobacco Use Types Packs/Day Years [...]
--- OUTSIDE RECORDS SUMMARY | 2021-10-16 15:04 | XMS_ITS | Encounter Summary ---
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; in [place], [facility] Malignant Neoplasm Of Lower Limb Basal C ell Carcinoma Right [place], [place] [address] [facility] [address] [place], [place] [phone] (Work) [phone] Social History Tobacco Use Types Packs/Day Years Used Date Smoking Tobacco: Every Day Sex Assigned at Date Recorded Not on file documented as of this encounter Last Filed Vital Signs Vital Sign Reading Time Taken Comments Blood Pressure 148/82 05/01/2020 1:55 PM MEDICARE COORDINATOR Pulse 86 05/01/2020 1:55 PM MEDICARE COORDINATOR Temperature 36.3 ??C (97.3 ??F) 05/01/2020 1:55 PM MEDICARE COORDINATOR Respiratory Rate - - Oxygen Saturation - [...] Quynh Moreno P.A.-C. M.SJhon 05/01/2020 2:25 PM MEDICARE COORDINATOR CARE COORDINATOR Associated attestation - Bethany Natarajan M.D. - 05/01/2020 4:43 PM MEDICARE COORDINATOR I saw and evaluated the patient and [...]
--- OUTSIDE RECORDS SUMMARY | 2021-10-16 15:04 | XMS_ITS | Encounter Summary ---
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 [facility] Procedures Prior Auth Rad Tx [place] IMRT COMPLEX [address] [place] [address] Referral ID Status Reason Start Date Expiration Date Visits Requ ested Visits Authorized [id number] Closed 04/16/2020 04/16/2021 15 15 Encounter Details Date Type Department Care Team Description 04/30/2020 Hospital Encounter Department of Radiation Shaneka Natarajan I., Oncology in [place], [place] [address] [facility] [address] [place] [phone] Social History Tobacco Use Types Packs/Day Years [...]
--- OUTSIDE RECORDS SUMMARY | 2021-10-16 15:04 | XMS_ITS | Encounter Summary ---
:1940 Author Organization [facility] Address [address] [place] [address] Care Team Providers Name Role Phone Unavailable Primary Care Provider Unavailable Reason for Visit Appointment Request (Routine) - Closed Specialty Diagnoses / Procedures Referred By Contact Refer red To Contact Radiation Oncology Diagnoses Malignant Neoplasm Of Skin Basal Cell Carcinoma Malignant Neoplasm Of Skin Squamous Cell Carcinoma Annita Jay M.D. 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 (Primary Dx); Radiation Oncology [place]inne Adhikari Malignant Neoplasm Of Lower Limb Basal C ell Carcinoma Right; in [place], [facility] [address] [facility] 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 [place], [place] [address] [facility] [address] [place], [place] [phone] (Work) [phone] Social History Tobacco Use Types Packs/Day Years Used Date Smoking Tobacco: Every Day Sex Assigned at Date Recorded Not on file documented as of this encounter Last Filed Vital Signs Vital Sign Reading Time Taken Comments Blood Pressure 124/76 04/16/2020 12:50 PM IT LEAD Pulse 93 04/16/2020 12:50 PM IT LEAD Temperature 37.2 ??C (99 ??F) 04/16/2020 12:50 PM IT LEAD Respiratory Rate - - Oxygen Saturation - - Inhaled Oxygen Concentration - - Weight 95.5 kg (210 lb 8.6 oz) 04/16/2020 12:50 PM IT LEAD Height - - Body Mass Index - [...] surgery, nose SOCIAL HISTORY He lives in [place], [place]. He lives at [place] in an apartment. He is single. 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 He is mobile with [...] Photos were taken and are available in [employer] after obtaining consent. He has a 1.5 [...] We discussed the acute as well as terminal system operator risks, including, but not limited to fatigue, [...] by: Bethany Natarajan M.D. 04/16/2020 4:52 PM IT LEAD Radiation Oncology [facility] [address] [place], [place] [phone] LEAD documented in this encounter Miscellaneous Notes Addendum Note - Mame Amezquita - 04/16/2020 1:00 PM IT LEAD Encounter addended by: Mame Amezquita on: 04/17/2020 8:34 AM Actions taken: Letter saved LEAD documented in this encounter Plan of Treatment Not on filedocumented as of this encounter Visit Diagnoses Diagnosis Malignant Neoplasm Of Lower Limb Basal C ell Carcinoma Left - Primary Malignant Neoplasm Of Lower Limb Basal C ell Carcinoma Right 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
--- OUTSIDE RECORDS SUMMARY | 2021-10-16 15:04 | XMS_ITS | Encounter Summary ---
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 [facility] Procedures Prior Auth Rad Tx [place] IMRT COMPLEX [address] [place] [address] Referral ID Status Reason Start Date Expiration Date Visits Requ ested Visits Authorized [id number] Closed 04/16/2020 04/16/2021 15 15 Encounter Details Date Type Department Care Team Description 04/24/2020 Hospital Encounter Department of Radiation Shaneka Natarajan I., Oncology in [place], [place] [address] [facility] [address] [place] [phone] Social History Tobacco Use Types Packs/Day Years [...]
--- OUTSIDE RECORDS SUMMARY | 2021-10-16 15:04 | XMS_ITS | Encounter Summary ---
:1940 Author Organization [facility] Address [address] [place] [address] Care Team Providers Name Role Phone Unavailable [...] 12:25 Result s for this EXAM PM REAL ESTATE PROFESSOR procedure are i n the results section. documented in this encounter Results DERMATOLOGY IMAGE EXAM (02/12/2017 12:25 PM REAL ESTATE PROFESSOR) Specimen (Source) Anatomical Collection Method Collection Time Re ceived Time Location / / Volume Laterality 02/12/2017 12:00 PM REAL ESTATE PROFESSOR Narrative IIMS - 02/12/2017 2:50 PM REAL ESTATE PROFESSOR This order has been created and auto-finalized [...]
--- OUTSIDE RECORDS SUMMARY | 2021-10-16 15:04 | XMS_ITS | Encounter Summary ---
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 [facility] Procedures Prior Auth Rad Tx [place] IMRT COMPLEX [address] [place] [address] Referral ID Status Reason Start Date Expiration Date Visits Requ ested Visits Authorized [id number] Closed 04/16/2020 04/16/2021 15 15 Encounter Details Date Type Department Care Team Description 05/07/2020 Hospital Encounter Department of Radiation Shaneka Natarajan I., [place]cology in [place] [address] [facility] [address] [place] [phone] Social History Tobacco Use Types Packs/Day Years [...]
--- OUTSIDE RECORDS SUMMARY | 2021-10-16 15:04 | XMS_ITS | Encounter Summary ---
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 [facility] Procedures Prior Auth Rad Tx [place] IMRT COMPLEX [address] [place] [address] Referral ID Status Reason Start Date Expiration Date Visits Requ ested Visits Authorized [id number] Closed 04/16/2020 04/16/2021 15 15 Encounter Details Date Type Department Care Team Description 05/14/2020 Hospital Encounter Department of Radiation Shaneka Natarajan I., [place]cology in [place] [address] [facility] [address] [place] [phone] Social History Tobacco Use Types Packs/Day Years [...]
--- OUTSIDE RECORDS SUMMARY | 2021-10-16 15:04 | XMS_ITS | Encounter Summary ---
:1940 Author Organization [facility] Address [address] [place] [address] Care Team Providers Name Role Phone Unavailable Primary Care Provider Unavailable Reason for Referral Specialty Diagnoses / Procedures Referred By Contact Refer red To Contact Bethany Natarajan M.D. 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 [facility] Procedures Initial Rad Onc Treatment Planning CT Simulation [address] [place] [address] [place] [phone] Referral ID Status Reason Start Date Expiration Date Visits Requ ested Visits Authorized [id number] Closed 04/10/2020 04/10/2021 1 1 NCE EDUCATION PROFESSOR Encounter Details Date Type Department Care Team Description 04/10/2020 Orders Only Department of Bethany Natarajan Malignant N eoplasm Of Lower Limb Basal Cell Carcinoma Left (Primary Dx); Radiation Oncology in [place] Adhikari 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; [facility] a [address] [facility] Malignant Neoplasm Of Lower Limb Basal C ell Carcinoma Right [address] [place] [phone] Social History Tobacco Use Types Packs/Day Years [...] Treatment Planning CT Simulation (04/16/2020 2:00 PM SCIENCE EDUCATION PROFESSOR) Specimen (Source) Anatomical Location Collection Method / Collectio n Time Received Time / Laterality Volume Narrative LAYO METZ - 04/16/2020 2:00 PM SCIENCE EDUCATION PROFESSOR Coral Alonso RTT ? 04/16/2020 ??4:02 PM Initial Rad Onc Treatment Planning CT Si mulation Date/Time: 04/16/2020 3:57 PM Performed by: Bethany Natarajan M.D. Authorized by: Bethany Natarajan M.D. Bethany Natarajan M.D. RADIATION ONCOLOGY ORDERABLE S Performing Organization Address City/State/ZIP Code Phon e Number [place] documented in this encounter [...]
--- OUTSIDE RECORDS SUMMARY | 2021-10-16 15:04 | XMS_ITS | Encounter Summary ---
:1940 Author Organization [facility] Address [address] [place] [address] Care Team Providers Name Role Phone Unavailable [...] 12:30 Result s for this EXAM PM SPECIAL EDUCATION ASSISTANT procedure are i n the results section. documented in this encounter Results DERMATOLOGY IMAGE EXAM (02/12/2017 12:30 PM SPECIAL EDUCATION ASSISTANT) Specimen (Source) Anatomical Collection Method Collection Time Re ceived Time Location / / Volume Laterality 02/12/2017 12:00 PM SPECIAL EDUCATION ASSISTANT Narrative [facility] - 02/12/2017 2:50 PM SPECIAL EDUCATION ASSISTANT This order has been created and auto-finalized [...]
--- OUTSIDE RECORDS SUMMARY | 2021-10-16 15:04 | XMS_ITS | Encounter Summary ---
:1940 Author Organization [facility] Address [address] [place] [address] Care Team Providers Name Role Phone Unavailable [...] Onc Treatment Planning CT Simulation [address] [place], [place] [address] Referral ID Status Reason Start Date Expiration Date Visits Requ ested Visits Authorized [id number] Closed 04/10/2020 04/10/2021 1 1 TATION OFFICER Reason for Visit Radiation Therapy (Routine) - [...] Onc Treatment Planning CT Simulation [address] [place], [place] [address] Referral ID Status Reason Start Date Expiration Date Visits Requ ested Visits Authorized [id number] Closed 04/10/2020 04/10/2021 1 1 Encounter Details Date Type Department Care Team Description 04/16/2020 Hospital Encounter Department of Bethany Natarajan 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 CT images were transferred to the [facility] treatment planning system, after a reference isocenter was determined and marked. Segmentation and treatment planning will take place priorto treatment delivery. Patient set up and imaging was appropriate and completed without incident. Social Contact Worker use:No TATION OFFICER documented in this encounter Plan of Treatment Not on filedocumented as of this encounter Procedures Procedure Name Priority Date/Time Associated Comments Diagnosis INITIAL RAD ONC Routine 04/16/2020 2:00 PM Malignant Neoplasm Results for this TREATMENT PLANNING SANITATION OFFICER Of Lower Limb Basal pr ocedure are in CT SIMULATION Cell Carcinoma L eft the results Malignant Neoplasm section. Of Lower Limb Squamous Cell Carcinoma Left Malignant Neoplasm Of Lower Limb Basal Cell Carcinoma Right documented in this encounter Results Initial Rad Onc Treatment Planning CT Simulation (04/16/2020 2:00 PM SANITATION OFFICER) Specimen (Source) Anatomical Location Collection Method / Collectio n Time Received Time / Laterality Volume Narrative [facility] - 04/16/2020 2:00 PM SANITATION OFFICER Coral Alonso RTT ? 04/16/2020 ??4:02 PM Initial Rad Onc Treatment Planning CT Si mulation Date/Time: 04/16/2020 3:57 PM Performed by: Bethany Natarajan M.D. Authorized by: Bethany Natarajan M.D. Bethany Natarajan M.D. RADIATION ONCOLOGY ORDERABLE S Performing Organization Address City/State/ZIP Code Phon e Number [place] na documented in this encounter Visit Diagnoses Diagnosis 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
--- OUTSIDE RECORDS SUMMARY | 2021-10-16 15:04 | XMS_ITS | Encounter Summary ---
:1940 Author Organization 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 [facility] Procedures Prior Auth Rad Tx [place] IMRT COMPLEX [address] [place] [address] Referral ID Status Reason Start Date Expiration Date Visits Requ ested Visits Authorized [id number] Closed 04/16/2020 04/16/2021 15 15 Encounter Details Date Type Department Care Team Description 05/13/2020 Hospital Encounter Department of Radiation Shaneka Natarajan I., [place] [address] [facility] [address] [place] [phone] Social History Tobacco Use Types Packs/Day Years [...]
--- OUTSIDE RECORDS SUMMARY | 2021-10-16 15:04 | XMS_ITS | Encounter Summary ---
:1940 Author Organization [facility] Address [address] [place] [address] Care Team Providers Name Role Phone Unavailable [...] 12:35 Result s for this EXAM PM LIBRARY SERVICES ASSISTANT procedure are i n the results section. documented in this encounter Results DERMATOLOGY IMAGE EXAM (02/12/2017 12:35 PM LIBRARY SERVICES ASSISTANT) Specimen (Source) Anatomical Collection Method Collection Time Re ceived Time Location / / Volume Laterality 02/12/2017 12:00 PM LIBRARY SERVICES ASSISTANT Narrative [facility] - 02/12/2017 2:50 PM LIBRARY SERVICES ASSISTANT This order has been created and [...]
--- OUTSIDE RECORDS SUMMARY | 2021-10-16 15:05 | XMS_ITS | Encounter Summary ---
:1940 Author Organization [facility] Address [address] [place] [address] Care Team Providers Name Role Phone Unavailable [...] 12:10 Result s for this EXAM PM EDGING MACHINE CATCHER procedure are i n the results section. documented in this encounter Results DERMATOLOGY IMAGE EXAM (02/12/2017 12:10 PM EDGING MACHINE CATCHER) Specimen (Source) Anatomical Collection Method Collection Time Re ceived Time Location / / Volume Laterality 02/12/2017 12:00 PM EDGING MACHINE CATCHER Narrative [facility] - 02/12/2017 2:49 PM EDGING MACHINE CATCHER This order has been created and auto-finalized [...]
--- OUTSIDE RECORDS SUMMARY | 2021-10-16 15:05 | XMS_ITS | Encounter Summary ---
:1940 Author Organization [facility] Address [address] [place] [address] Care Team Providers Name Role Phone Unavailable [...] 12:00 Result s for this EXAM PM GRAIN BUYER procedure are i n the results section. documented in this encounter Results DERMATOLOGY IMAGE EXAM (02/12/2017 12:00 PM GRAIN BUYER) Specimen (Source) Anatomical Collection Method Collection Time Re ceived Time Location / / Volume Laterality 02/12/2017 12:00 PM GRAIN BUYER Narrative [facility] - 02/12/2017 2:49 PM GRAIN BUYER This order has been created and auto-finalized [...]
--- OUTSIDE RECORDS SUMMARY | 2021-10-16 15:05 | XMS_ITS | Encounter Summary ---
:1940 Author Organization [facility] Address [address] [place] [address] Care Team Providers Name Role Phone Unavailable [...] 12:00 Result s for this EXAM PM ACADEMIC ASSOCIATE procedure are i n the results section. documented in this encounter Results DERMATOLOGY IMAGE EXAM (01/19/2017 12:00 PM ACADEMIC ASSOCIATE) Specimen (Source) Anatomical Location Collection Method / Collectio n Time Received Time / Laterality Volume Narrative [facility] - 01/19/2017 4:19 PM ACADEMIC ASSOCIATE This order has been created and auto-finalized [...]
--- OUTSIDE RECORDS SUMMARY | 2021-10-16 15:05 | XMS_ITS | Encounter Summary ---
:1940 Author Organization [facility] Address [address] [place] [address] Care Team Providers Name Role Phone Unavailable [...] 12:15 Result s for this EXAM PM SPRING INTERNSHIP procedure are i n the results section. documented in this encounter Results DERMATOLOGY IMAGE EXAM (02/12/2017 12:15 PM SPRING INTERNSHIP) Specimen (Source) Anatomical Collection Method Collection Time Re ceived Time Location / / Volume Laterality 02/12/2017 12:00 PM SPRING INTERNSHIP Narrative [facility] - 02/12/2017 2:49 PM SPRING INTERNSHIP This order has been created and auto-finalized [...]
--- OUTSIDE RECORDS SUMMARY | 2021-10-16 15:05 | XMS_ITS | Encounter Summary ---
:1940 Author Organization [facility] Address [address] [place] [address] Care Team Providers Name Role Phone Unavailable [...] 12:05 Result s for this EXAM PM PULLEY MORTISER OPERATOR procedure are i n the results section. documented in this encounter Results DERMATOLOGY IMAGE EXAM (02/12/2017 12:05 PM PULLEY MORTISER OPERATOR) Specimen (Source) Anatomical Collection Method Collection Time Re ceived Time Location / / Volume Laterality 02/12/2017 12:00 PM PULLEY MORTISER OPERATOR Narrative [facility] - 02/12/2017 2:49 PM PULLEY MORTISER OPERATOR This order has been created and [...]
== END 2021-10-16 15:02 | disposition home or self-care (01) ==
PROVIDERS: PCP Family Medicine; Visit Provider Family Medicine
DX: R30.0 Dysuria (principal); R39.9 Unspecified symptoms and signs involving the genitourinary system
CPT/HCPCS: 87086

== ENCOUNTER 2021-11-04 13:04 | Outpatient (CLI) | payer OTHER, SELFPAY ==
--- OUTSIDE RECORDS SUMMARY | 2021-11-04 13:06 | XMS_ITS | Encounter Summary ---
:1940 Author Organization [facility] Address [address] [place] [address] Care Team Providers Name Role Phone Unavailable Primary Care Provider Unavailable Encounter Details Date Type Department Care Team Description 07/10/2020 Clinical Communication Department of Bethany Natarajan Radiation Oncology in [place] Adhikari [facility] [address] [facility] [address] [place] [address] [phone] Social History Tobacco Use Types Packs/Day Years [...] informed him that a prescription for the [place] has been sent to the [facility] in [place]. Phone number: [phone] Is it okay to leave a voicemail on answering machine with test results? Yes Pharmacy (if medication related): N/A Elif Parkinson documented in this encounter Plan of Treatment Not on filedocumented as of this encounter Visit Diagnoses Not on filedocumented in this encounter
--- OUTSIDE RECORDS SUMMARY | 2021-11-04 13:06 | XMS_ITS | Encounter Summary ---
:1940 Author Organization [facility] Address [address] [place] [address] Care Team Providers Name Role Phone Unavailable Primary Care Provider Unavailable Reason for Referral Outpatient (Routine) - Closed Specialty Diagnoses / Procedures Referred By Contact Refer red To Contact Radiation Oncology Bethany Natarajan [facility] Feli Gomez M.D. [address] [place] [address] Referral ID Status Reason Start Date Expiration Date Visits Requ ested Visits Authorized [id number] Closed 05/28/2020 05/28/2021 1 1 Scheduling Instructions 2-3 weeks with [facility] Outpatient (Routine) - Closed Specialty Diagnoses / Procedures Referred By Contact Refer red To Contact Radiation Oncology Bethany Natarajan [facility] Feli Gomez M.D. [address] [place] [address] Referral ID Status Reason Start Date Expiration Date Visits Requ ested Visits Authorized [id number] Closed 05/15/2020 05/15/2021 1 1 Scheduling Instructions Deedee first to assess skin Reason for Visit Outpatient (Routine) - Closed Specialty Diagnoses / Procedures Referred By Contact Refer red To Contact Radiation Oncology Bethany Natarajan [facility] Feli Gomez M.D. 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 05/28/2020 1:16 PM CDT [facility] [address] [place] [address] ATTESTATION FOR FOLLOW-UP VISIT I saw and [...]
--- OUTSIDE RECORDS SUMMARY | 2021-11-04 13:06 | XMS_ITS | Encounter Summary ---
:1940 Author Organization [facility] Address [address] [place] [address] Care Team Providers Name Role Phone Unavailable Primary Care Provider Unavailable Reason for Visit Reason Comments Med Refill Encounter Details Date Type Department Care Team Description 08/08/2020 Clinical Communication Department of Travis Hall Refjoanne Radiation Oncology in [facility], [place] [address] [place] [phone] Social History Tobacco Use Types Packs/Day Years Used Date Smoking Tobacco: Every Day Sex Assigned at Date Recorded Not on file documented as of this encounter Miscellaneous Notes Telephone Encounter - Deedee Fry R.N. - 08/08/2020 1:06 PM CDT Information Discussed I called and left voicemail on patient's phone requesting call back. Patient reported that he was taking Jackson twice a day at his last in office visit with us. PLAN Dr. Natarajan and I will send through refill on Jackson to get him through until August 16, 2020, when he is scheduled for follow up with Dr. Natarajan in [place]. Disposition/Recommendation: I requested call back, refill will [...] can be done or not Phone number: [phone] Is it okay to leave a voicemail on answering machine with test results? Yes Pharmacy (if medication related): [facility] [address] [place] [id number] Paula Hall documented in this encounter Plan of Treatment Not on filedocumented as of this encounter Visit Diagnoses Not on filedocumented in this encounter
--- OUTSIDE RECORDS SUMMARY | 2021-11-04 13:06 | XMS_ITS | Encounter Summary ---
:1940 Author Organization [facility] Address [address] [place] [address] Care Team Providers Name Role Phone Unavailable Primary Care Provider Unavailable Encounter Details Date Type Department Care Team Description 09/27/2020 Clinical Communication Department of Bethany Natarajan Radiation Oncology in [place] Adhikari [facility] [address] [facility] [address] [place] [phone] Social History Tobacco Use Types Packs/Day Years [...]
--- OUTSIDE RECORDS SUMMARY | 2021-11-04 13:06 | XMS_ITS | Encounter Summary ---
:1940 Author Organization [facility] Address [address] [place] [address] Care Team Providers Name Role Phone Unavailable Primary Care Provider Unavailable Encounter Details Date Type Department Care Team Description 05/15/2020 Hospital Encounter Department of Radiation Shaneka Natarajan I., Oncology in [facility] [address] [facility] [address] [place] [phone] Social History Tobacco Use Types Packs/Day Years [...]
--- OUTSIDE RECORDS SUMMARY | 2021-11-04 13:06 | XMS_ITS | Encounter Summary ---
:1940 Author Organization [facility] Address [address] [place] [address] Care Team Providers Name Role Phone Unavailable Primary Care Provider Unavailable Reason for Referral Specialty Diagnoses / Procedures Referred By Contact Refer red To Contact Bethany Natarajan M.D. [facility] Region [address] [place] [phone] Referral ID Status Reason Start Date Expiration Date Visits Requ ested Visits Authorized C DIRECTOR Encounter Details Date Type Department Care Team Description 04/30/2020 - Hospital Encounter Department of Aramis Natarajan M.D. [address] [place] [phone] Malignant Neoplasm Of Lower Limb Basal C ell Carcinoma Left; 05/17/2020 Radiation Oncology Deedee Fry R.N. [address] [place] [phone] 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; in [place], Malignant Henry plasm Of Lower Limb Basal Cell Carcinoma Right [place] [address] [place] [phone] Social History Tobacco Use Types Packs/Day Years [...]
--- OUTSIDE RECORDS SUMMARY | 2021-11-04 13:06 | XMS_ITS | Encounter Summary ---
:1940 Author Organization [facility] Address [address] [place] [address] Care Team Providers Name Role Phone Unavailable Primary Care Provider Unavailable Reason for Visit Reason Comments Med Refill Encounter Details Date Type Department Care Team Description 07/09/2020 Clinical Communication Department of Bethany Natarajan ed Refill Radiation Oncology in [place] Adhikari [facility] [address] [facility] [address] [place] [phone] Social History Tobacco Use Types Packs/Day Years [...] would like a refill today. Phone number: [phone] Is it okay to leave a voicemail on answering machine with test results? Yes Pharmacy (if medication related): [facility] [address] [place] [address] [address] [facility] [address] [facility] [id number] Paula Hall documented in this encounter Plan of Treatment Not on filedocumented as of this encounter Visit Diagnoses Not on filedocumented in this encounter
--- OUTSIDE RECORDS SUMMARY | 2021-11-04 13:06 | XMS_ITS | Clinical Summary ---
:1940 Author Organization [employer] [facility] [place] [address] Care Team Providers Name Role Phone Alfredo Starr MD Primary Care Provider Allergies Active Allergy Reactions Severity Noted Date Comments Latex Rash 02/16/2014 Medications Medication Sig Dispensed Refills Start Date End Date Status fentaNYL 12 mcg/hr Apply 1 Patch on dry, 5 Patch 0 5 Active (DURAGESIC) 12 clean, hairless skin mcg/hr transdermal every 72 hours. patch HYDROmorphone Inject 0.5-1 mg 0 04/16/2014 Active (DILAUDID) 1 mg/mL intravenous every 2 injection hours if needed for Pain. LORazepam (ATIVAN) Take 1 tablet by 0 04/16/2014 Active 0.5 mg tab mouth every 6 hours if needed for Anxiety or Sleep. gabapentin Take 1 capsule by 0 04/16/2014 Active (NEURONTIN) 300 mg mouth 3 times daily. capsule For phantom pain. Can uptitrate as warranted. HYDROmorphone 1 Pain was well controlled her e on dilaudid FOUNDATION DRILL OPERATOR HELPER on following regimen: 0 04/16/2014 Active mg/mL inj LOADING DOSE: 0.2 mg for 1 dose FOUNDATION DRILL OPERATOR HELPER BOLUS DOSE: 0.2-0.3 mg LOCKOUT INTERVAL: 10 minutes CONTINUOUS INFUSION RATE: 0-0.4 mg/hr FOUR HOUR DOSE LIMIT: 6 mg atorvastatin Take 1 tablet by 0 04/16/2014 Active (LIPITOR) 80 mg mouth at bedtime. tablet metoprolol Take 1.5 tablets by 0 04/16/2014 Active (LOPRESSOR) 25 mg mouth 2 times daily. tablet For Coronary Artery Disease, hypertension. sennosides-docusate Take 2 tablets by 0 04/16/2014 Active , 8.6-50 mg, mouth 2 times daily. (SENOKOT S) 8.6-50 To prevent mg tablet constipation on narcotics. Hold for diarrhea or loose stools. pantoprazole Take 1 tablet by 0 04/16/2014 Active (PROTONIX) 40 mg mouth 2 times daily delayed-release before meals. tablet bivalirudin Target aPTT 60-80. 0 04/16/2014 Active (ANGIOMAX) 250 mg Stop 1 hours before injection disarticulation surgery. Was on 0.055mg/kg/hr immediately prior to transfer. eptifibatide Inject 90.8 mcg/min 0 04/16/2014 Active (INTEGRILIN) 0.75 intravenous mg/mL infusion continuous. ( 1mcg/kg/min). Continue Integrelin drip at 1 mcg/kg/min. Stop at least 3 hours prior to surgery. Considering increasing to 2 mcg/kg/min after surgery. vancomycin Vancomycin 1500 mg Q 0 04/16/2014 Active (VANCOCIN) 1,000 mg 24 hrs for sepsis injection prophylaxis given lower extremity gangrene and residual tissue necrosis. Active Problems Problem Noted Date Dermal hypersensitivity reaction, left upper extremity and across left 11/12/2015 chest anterior cervical decompression and fusion C5-[address] 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 Patient has identified Health Care Agent (s): Yes Add Health Care Agents: Yes Health Care Agent(s): Primary Health Care Agent: Jo Prescott elationship: Life Partner Secondary Health Care Agent: Morrispr p: Phone: Conservator: Relationship: Phone: Guardian: Relationship: Phone: Patient has Advance Care Plan Documents (Health Care Directive, POLST): Yes Advance Care Plan Documents: Health Care Directive Patient has identified Specific Treatmen t Preferences: Yes Specific Treatment Preferences: a.) Code Status: CPR/Attempt Resuscitation Post-operative pain 03/08/2014 Stenosis, cervical spine 03/07/2014 Overview: Left neck, shoulder and arm pain. Limite d ROM Dysphagia 03/07/2014 Overview: Needs to eat small, frequent meals. Food gets stuck high in esophagus Left shoulder pain 06/02/2013 s/p left reverse total shoulder arthroplasty 03.17.201 3 with Teddy 06/02/2013 MD Christine Rib cage dysfunction 06/02/2013 Tobacco use disorder 03/17/2012 HTN (hypertension) 03/17/2012 Rotator cuff disorder 03/17/2012 Overview: S/p reverse left total shoulder arthropl asty 03/17/12 PVD (peripheral vascular disease) 03/17/2012 Overview: S/p LEFT LOWER EXTREMITY bypass Heterozygous factor V Leiden mutation 06/24/2010 Other and unspecified hyperlipidemia 06/24/2010 H/o DVT (deep venous thrombosis) 03/15/2010 Overview: Noted in 02/2010, took coumadin for 3 mon ths , patient elected to discontinue and states will never take it again Muscle pain 03/15/2010 CKD (chronic kidney disease) stage 3, GFR 30-59 ml/min 05/06/2009 Overview: baseline creatinine 1.4-1.5 Peripheral Vascular Disease with Claudication--s/p L f em-pop 3-15-10 05/06/2009 Cardiomyopathy , ischemic; old inf [place] 05/02/2009 Overview: Per preop, EF of 39% Claudication 11/23/2008 Nonspecific abnormal electrocardiogram (ECG) (EKG) 05/2007 Cardiomegaly 05/27/2007 Chronic systolic CHF (congestive heart failure) 2007 Immunizations Name Administration Dates Next Due Pneumococcal Poly,23-Valent (Pneumovax) 04/30/2009 Family History Medical History Relation Name Comments Heart Disease Father @ 64 AMI Good Health Mother Relation Name Status Comments Father Mother Social History Tobacco Use Types Packs/Day Years Used Date Current Some Day Smoker Cigars 40 Quit : 09/12/2008 Smokeless Tobacco: Never Used Comments: currently smokes 2 cigars nora y, quit smoking cigarettes 10 years ago Alcohol Use Standard Drinks/Week Comments No 0 (1 standard drink = 0.6 oz pure alcoho l) 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/04) Sex Assigned at Date Recorded Not on file Obstetrics History Last Filed Vital Signs Vital Sign Reading Time Taken Comments Blood Pressure 123/73 04/16/2014 2:19 PM MODERN AND CONTEMPORARY ART CURATOR Pulse 115 04/16/2014 2:19 PM MODERN AND CONTEMPORARY ART CURATOR Temperature 38.3 ??C (100.9 ??F) 04/16/2014 3:30 PM MODERN AND CONTEMPORARY ART CURATOR Respiratory Rate 20 04/16/2014 2:19 PM MODERN AND CONTEMPORARY ART CURATOR Oxygen Saturation 94% 04/16/2014 2:19 PM MODERN AND CONTEMPORARY ART CURATOR Inhaled Oxygen Concentration - - Weight 86.1 kg (189 lb 13.1 oz) 04/16/2014 5:00 AM MODERN AND CONTEMPORARY ART CURATOR Height 180.3 cm (5' 10.98) 04/02/2014 12:00 AM MODERN AND CONTEMPORARY ART CURATOR Body Mass Index 26.49 04/02/2014 12:00 AM MODERN AND CONTEMPORARY ART CURATOR Plan of Treatment Health Maintenance Due Date Last Done Comments COVID-19 vaccine series (#1) 1940 Tdap 1953 Depression screening for age 12+ 1954 BMI (ht and wt on same day) for age 18+ 1960 Hepatitis C screening for age 18-79 1960 Tetanus booster 1962 Zoster (shingles) series for age 50+ (1 of 2) 1992 Pneumococcal series for age 65+ (2 - PCV) 04/30/20102009 Influenza for age 65+ 10/23/2021 Medical Devices Implanted Type Area Machine Fitter Device Shelf Model / Identifier Expiration Serial / Date Lot Screw Self Drilling 3.5x15mm - [id number] N/A: Spine SOFAMOR DANEK [id number] / Implanted: Qty: 4 on 06/24/2010 at [facility] / Humeral Tray Left: [id number] / Implanted: Qty: 1 on 03/17/2012 at [facility] Shoulder / [id number] Description: HUMERAL TRAY Explanted Type Area Machine Fitter Device Shelf Model / Identifier Expiration Serial / Date Lot Patch Vasc 0.8x8cm Xenosure Biological Pericardial - [id number] Right: Lemaitre 0.8P8# / Explanted: Qty: 1 on 03/09/2014 at [facility] [employer] / [id number] Results Not on filefrom Last 3 Months Insurance Payer Benefit Plan / Subscriber ID Effective Dates Phone Addre ss Type Group [facility]EL CONNELLY [facility] [id number] 2015-Present [address] [place] [address] Guarantor Name Account Type Relation to Date of Phone Bill ing Patient Address Tl Lugo Personal/Family Self 1940 [phone] (Home) [place] [address] Advance Directives Documents on File Type Date Recorded Patient Resistor Winder Explanati on Healthcare Directive 05/12/2009 Healthcare Directive 06/26/2010 Latest Code Status on File Code Status Date Activated Date Inactivated Comments Full Code 04/16/2014 2:21 PM Full Code 03/07/2014 8:16 PM 04/16/2014 2:21 PM Full Code 03/07/2014 12:01 PM 03/07/2014 8:16 PM Full Code 02/28/2014 6:12 AM 02/28/2014 11:11 PM Full Code 03/17/2012 12:44 PM 03/19/2012 4:35 PM Care Teams Ambulatory Care Relationship Specialty Start Date End Date Alfredo Starr MD PCP - General 11/13/08
--- OUTSIDE RECORDS SUMMARY | 2021-11-04 13:06 | XMS_ITS | Encounter Summary ---
:1940 Author Organization [facility] Address [address] [place] [address] Care Team Providers Name Role Phone Unavailable Primary Care Provider Unavailable Reason for Referral Outpatient (Routine) - Closed Specialty Diagnoses / Procedures Referred By Contact Refer red To Contact Radiation Oncology Bethany Natarajan [facility] Jason Sun [address] [place] [address] Referral ID Status Reason Start Date Expiration Date Visits Requ ested Visits Authorized [id number] Closed 05/15/2020 05/15/2021 1 1 Scheduling Instructions Deedee first to assess skin Radiation Therapy (Routine) - Canceled Specialty Diagnoses / Procedures Referred By Contact Refer red To Contact Diagnoses 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 Radiation Oncology [place] can be contacted at anytime for any questions or concerns. Patient stated a full understanding to the plan of care discussed today. Toxicities reviewed with Dr. Natarajan today. Signed by: Deedee Fry R.N. 05/15/2020 2:59 PM CDT [facility] Radiation Therapy Center [address] [place] [address] documented in this encounter Plan of Treatment [...]
--- OUTSIDE RECORDS SUMMARY | 2021-11-04 13:06 | XMS_ITS | Encounter Summary ---
:1940 Author Organization [facility] Address [address] [place] [address] Care Team Providers Name Role Phone Unavailable Primary Care Provider Unavailable Reason for Referral Specialty Diagnoses / Procedures Referred By Contact Refer red To Contact Dona Zuniga M.D. [facility] Region [address] [place] [address] Referral ID Status Reason Start Date Expiration Date Visits Requ ested Visits Authorized Encounter Details Date Type Department Care Team Description 11/01/2020 Orders Only [facility] PCP [facility] MNT Sa greyson Zuniga M.D. [address] [place] [address] [phone] (Wo rk) Social History Tobacco [...]
--- OUTSIDE RECORDS SUMMARY | 2021-11-04 13:06 | XMS_ITS | Encounter Summary ---
:1940 Author Organization [facility] Address [address] [place] [address] Care Team Providers Name Role Phone Unavailable Primary Care Provider Unavailable Reason for Visit Reason Comments Follow-up Encounter Details Date Type Department Care Team Description 10/30/2020 Clinical Communication Department of Bethany Natarajanzuhair Radiation Oncology in [place] Adhikari [facility] a [address] [facility] [address] [place] [phone] Social History Tobacco Use Types Packs/Day Years [...] center to help with this. Phone number: [phone] Is it okay to leave a voicemail on answering machine with test results? No Pharmacy (if medication related): N/A Elif Parkinson documented in this encounter Plan of Treatment Not on filedocumented as of this encounter Visit Diagnoses Not on filedocumented in this encounter
--- OUTSIDE RECORDS SUMMARY | 2021-11-04 13:06 | XMS_ITS | Encounter Summary ---
:1940 Author Organization [facility] Address [address] [place] [address] Care Team Providers Name Role Phone Unavailable Primary Care Provider Unavailable Reason for Referral Outpatient (Routine) - Closed Specialty Diagnoses / Procedures Referred By Contact Refer jose luis To Contact Radiation Oncology Bethany Natarajan [facility] Feli Gomez M.D. [address] [place] [phone] Referral ID Status Reason Start Date Expiration Date Visits Requ ested Visits Authorized [id number] Closed 05/28/2020 05/28/2021 1 1 Scheduling Instructions 2-3 weeks with CECY and Deedee Reason for Visit Outpatient (Routine) - Closed Specialty Diagnoses / Procedures Referred By Contact Sofi amaya To Contact Radiation Oncology Bethany Natarajan [facility] Feli Gomez M.D. [address] [place] [phone] Referral ID Status Reason Start Date Expiration Date Visits Requ ested Visits Authorized [id number] Closed 05/28/2020 05/28/2021 1 1 Encounter Details Date Type Department Care Team Description 06/11/2020 Hospital Encounter Department of Bethany Natarajan (Primary Dx) Radiation Oncology Corinne Adhikari in [place], [address] [place] [address] [address] [facility] [address] [place], [place] [phone] (Work) [phone] Social History Tobacco Use Types Packs/Day Years [...] a 8 out of 10.He takes 1 [place] in the morning and 1 at bedtime. [...] will send through prescription refill on his [place] to his preferred pharmacy today. Patient is to not exceed 3200 mg of Ibuprofen a day. We encouraged patient to trial warm compresses for acute right eye mattering. We will send through referral to [facility]. We will see Mr. Tl Lugo in a follow-up visit in late July. The patient was told to contact us sooner with questions or concerns. He verbally expressed his understanding of the plan. Signed by: Deedee Fry R.N. 06/11/2020 1:09 PM CDT [facility] Radiation Therapy Center [address] [place] [address] documented in this encounter Plan of Treatment Scheduled Referrals Name Type Priority Associated Order Schedule Diagnoses Radiation Oncology Outpatient Referral Routine On ce for 1 office visit Occurrences sta rting (clinic) 06/11/2020 unti l 06/11/2020 documented as of this encounter Visit Diagnoses Diagnosis Red Eye - Primary documented in this encounter
--- OUTSIDE RECORDS SUMMARY | 2021-11-04 13:06 | XMS_ITS ---
:1940 Author Organization [facility] Address [address] [place] [address] Care Team Providers Name Role Phone Unavailable [...] Elapsed Days Session Dose Total Dos e [id number] 05/15/2020 21 300 cGy 4,500 cGy [id number] 05/06/2020 12 425 cGy 3,825 cGy [id number] 04/26/2020 2 700 cGy 2,100 cGy
--- OUTSIDE RECORDS SUMMARY | 2021-11-04 13:06 | XMS_ITS | Clinical Summary ---
:1940 Author Organization [facility] Address [address] [place] [address] Care Team Providers Name Role Phone Unavailable Primary Care Provider Unavailable Source Comments Patient records contain information from all sites at [facility]. For routine questions regarding patient records, call [phone] during business hours, M-F 8:00 AM - 5:00 PM Central Time. Record requests for emergency care only can be directed to [phone] at any time.[facility] Allergies Active Allergy Reactions Severity Noted [...] Phone Addre ss Type Group [facility] [id number] 2021-Present [phone] [address] [place] [address]
--- OUTSIDE RECORDS SUMMARY | 2021-11-04 13:07 | XMS_ITS | Encounter Summary ---
:1940 Author Organization [facility] Address [address] [place] [address] Care Team Providers Name Role Phone Unavailable Primary Care Provider Unavailable Reason for Visit Reason Comments Lab Monitoring Encounter Details Date Type Department Care Team Description 04/19/2020 Documentation Department of Radiation Deedee Fry, Lab Monitoring Oncology in [facility] [address] [facility] [address] [place] [phone] (Wo rk) Social History Tobacco Use Types Packs/Day Years Used Date Smoking Tobacco: Every Day Sex Assigned at Date Recorded Not on file documented as of this encounter Progress Notes Deedee Fry, RJhonN. - 04/19/2020 10:39 AM CST Lab result entered in OYEE'S REPRESENTATIVE documented in this encounter Plan of Treatment Not on filedocumented as of this encounter Procedures Procedure Name Priority Date/Time Associated Diagnosis Comme nts LABEXT SARS Routine 04/17/2020 12:00 AM Results for this CORONAVIRUS-2 EMPLOYEE'S REPRESENTATIVE procedure are in (COVID-19) RNA the results section. documented in this encounter Results EXT SARS Coronavirus-2 (COVID-19) RNA (04/17/2020 12:00 AM EMPLOYEE'S REPRESENTATIVE) [facility] Method Time Signature EXT Undetected Inconclus [facility] SARS-CoV-2 sylvia, LABORATORIES - RNA Indetermi [facility] Invalid, Negative, Not Detected, Undetecte d, Other (specify in comment) Specimen (Source) Anatomical Location Collection Method / Collectio n Time Received Time / Laterality Volume Swab 04/17/2020 Bethany Natarajan M.D. LAB MICROBIOLOGY - GENERAL O RDERABLES Performing Organization Address City/State/ZIP Code Phon e Number [facility] LABORATORIES - [address] [place], [place] [address] [facility] documented in this encounter Visit Diagnoses Not on filedocumented in this encounter
--- OUTSIDE RECORDS SUMMARY | 2021-11-04 13:07 | XMS_ITS | Encounter Summary ---
:1940 Author Organization [facility] Address [address] [place] [address] Care Team Providers Name Role Phone Unavailable [...] 12:30 Result s for this EXAM PM WASH BOX OPERATOR procedure are i n the results section. documented in this encounter Results DERMATOLOGY IMAGE EXAM (02/12/2017 12:30 PM WASH BOX OPERATOR) Specimen (Source) Anatomical Collection Method Collection Time Re ceived Time Location / / Volume Laterality 02/12/2017 12:00 PM WASH BOX OPERATOR Narrative [facility] - 02/12/2017 2:50 PM WASH BOX OPERATOR This order has been created and [...]
--- OUTSIDE RECORDS SUMMARY | 2021-11-04 13:07 | XMS_ITS | Encounter Summary ---
:1940 Author Organization [facility] Address [address] [place] [address] Care Team Providers Name Role Phone Unavailable [...] 12:25 Result s for this EXAM PM DIRECTOR OF LOSS PREVENTION procedure are i n the results section. documented in this encounter Results DERMATOLOGY IMAGE EXAM (02/12/2017 12:25 PM DIRECTOR OF LOSS PREVENTION) Specimen (Source) Anatomical Collection Method Collection Time Re ceived Time Location / / Volume Laterality 02/12/2017 12:00 PM DIRECTOR OF LOSS PREVENTION Narrative [facility] - 02/12/2017 2:50 PM DIRECTOR OF LOSS PREVENTION This order has been created and auto-finalized [...]
--- OUTSIDE RECORDS SUMMARY | 2021-11-04 13:07 | XMS_ITS | Encounter Summary ---
:1940 Author Organization [facility] Address [address] [place] [address] Care Team Providers Name Role Phone Unavailable Primary Care Provider Unavailable Reason for Referral Outpatient (Routine) - Closed Specialty Diagnoses / Procedures Referred By Contact Refer red To Contact Diagnoses Swelling Testicle Garrison Casas M.D. 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 [facility] Region Procedures Management Visit [address] [place] [address] Referral ID Status Reason Start Date Expiration Date Visits V isits Requested Authorized [id number] Canceled 04/10/2020 04/10/2021 5 5 Encounter Details Date Type Department Care Team Description 05/08/2020 Hospital Encounter Department of Garrison Casas ing Testicle (Primary Dx); Radiation Oncology Corinne Cabello Malignant Neoplasm Of Lower Limb Basal C ell Carcinoma Left; in [place], [facility] [address] [facility] 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; [place], [place] Malignant Neoplasm Of Lower Limb Basal Cell Carcinoma Right [address] [facility] [address] [place], [place] [phone] [phone] (Work) [phone] Social History Tobacco Use Types Packs/Day Years [...] Garrison Casas M.D. 05/08/2020 2:54 PM CDT [facility] Radiation Therapy Center [address] [place] [address] documented in this encounter Plan of Treatment [...]
--- OUTSIDE RECORDS SUMMARY | 2021-11-04 13:07 | XMS_ITS | Encounter Summary ---
:1940 Author Organization [facility] Address [address] [place] [address] Care Team Providers Name Role Phone Unavailable [...] 04/16/2020 1:28 PM Re sults for this SALES AND MARKETING REPRESENTATIVE procedure are i n the results section. documented in this encounter Results Leg-Oncology Image Exam (04/16/2020 1:28 PM SALES AND MARKETING REPRESENTATIVE) Specimen (Source) Anatomical Collection Method Collection Time Re ceived Time Location / / Volume Laterality 04/16/2020 1:25 PM SALES AND MARKETING REPRESENTATIVE Narrative [facility] - 04/16/2020 1:28 PM SALES AND MARKETING REPRESENTATIVE This order has been created and auto-finalized [...]
--- OUTSIDE RECORDS SUMMARY | 2021-11-04 13:07 | XMS_ITS | Encounter Summary ---
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 [facility] Procedures Prior Auth Rad Tx [place] IMRT COMPLEX [address] [place] [address] Referral ID Status Reason Start Date Expiration Date Visits Requ ested Visits Authorized [id number] Closed 04/16/2020 04/16/2021 15 15 Encounter Details Date Type Department Care Team Description 05/13/2020 Hospital Encounter Department of Radiation Shaneka Natarajan I., [place]cology [place] [address] [facility] [address] [place] [phone] Social History Tobacco Use Types Packs/Day Years [...]
--- OUTSIDE RECORDS SUMMARY | 2021-11-04 13:07 | XMS_ITS | Encounter Summary ---
:1940 Author Organization [facility] Address [address] [place] [address] Care Team Providers Name Role Phone Unavailable [...] 12:10 Result s for this EXAM PM BRICK CATCHER procedure are i n the results section. documented in this encounter Results DERMATOLOGY IMAGE EXAM (02/12/2017 12:10 PM BRICK CATCHER) Specimen (Source) Anatomical Collection Method Collection Time Re ceived Time Location / / Volume Laterality 02/12/2017 12:00 PM BRICK CATCHER Narrative [facility] - 02/12/2017 2:49 PM BRICK CATCHER This order has been created and [...]
--- OUTSIDE RECORDS SUMMARY | 2021-11-04 13:07 | XMS_ITS | Encounter Summary ---
:1940 Author Organization [facility] Address [address] [place] [address] Care Team Providers Name Role Phone Unavailable Primary Care Provider Unavailable Reason for Referral Specialty Diagnoses / Procedures Referred By Contact Refer red To Contact Bethany Natarajan M.D. 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 [facility] Procedures Initial Rad Onc Treatment Planning CT Simulation [address] [place] [address] [place] [address] Referral ID Status Reason Start Date Expiration Date Visits Requ ested Visits Authorized [id number] Closed 04/10/2020 04/10/2021 1 1 PILER Encounter Details Date Type Department Care Team Description 04/10/2020 Orders Only Department of Bethany Natarajan Malignant N eoplasm Of Lower Limb Basal Cell Carcinoma Left (Primary Dx); Radiation Oncology in [place] 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; [facility] a [address] [facility] Malignant Neoplasm Of Lower Limb Basal C ell Carcinoma Right [address] [place] [phone] Social History Tobacco Use Types Packs/Day Years [...] Treatment Planning CT Simulation (04/16/2020 2:00 PM CANE PILER) Specimen (Source) Anatomical Location Collection Method / Collectio n Time Received Time / Laterality Volume Narrative LAYO METZ - 04/16/2020 2:00 PM CANE PILER Coral Alonso RTT ? 04/16/2020 ??4:02 PM Initial Rad Onc Treatment Planning CT Si mulation Date/Time: 04/16/2020 3:57 PM Performed by: Bethany Natarajan M.D. Authorized by: Bethany Natarajan M.D. Bethany Natarajan M.D. RADIATION ONCOLOGY ORDERABLE S Performing Organization Address City/State/ZIP Code Phon e Number SUPERIOR LASHAY VASQUES LASHAY documented in this encounter [...]
--- OUTSIDE RECORDS SUMMARY | 2021-11-04 13:07 | XMS_ITS | Encounter Summary ---
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 [facility] Procedures Prior Auth Rad Tx [place] IMRT COMPLEX [address] [place] [address] Referral ID Status Reason Start Date Expiration Date Visits Requ ested Visits Authorized [id number] Closed 04/16/2020 04/16/2021 15 15 Encounter Details Date Type Department Care Team Description 05/14/2020 Hospital Encounter Department of Radiation Shaneka Natarajan I., [place]cology [place] [address] [place] [address] [place] [phone] Social History Tobacco Use Types Packs/Day Years [...]
--- OUTSIDE RECORDS SUMMARY | 2021-11-04 13:07 | XMS_ITS | Encounter Summary ---
:1940 Author Organization [facility] Address [address] [place] [address] Care Team Providers Name Role Phone Unavailable [...] 04/16/2020 1:25 PM Re sults for this ELECTRIC POWER LINE EXAMINER procedure are i n the results section. documented in this encounter Results Pelvis-Oncology Image Exam (04/16/2020 1:25 PM ELECTRIC POWER LINE EXAMINER) Specimen (Source) Anatomical Collection Method Collection Time Re ceived Time Location / / Volume Laterality 04/16/2020 1:25 PM ELECTRIC POWER LINE EXAMINER Narrative [facility] - 04/16/2020 1:28 PM ELECTRIC POWER LINE EXAMINER This order has been created and auto-finalized [...]
--- OUTSIDE RECORDS SUMMARY | 2021-11-04 13:07 | XMS_ITS | Encounter Summary ---
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; Radiation Oncology [place] Adhikari 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; in [place], [address] [place] [address] Malignant Neoplasm Of Lower Limb Basal C ell Carcinoma Right [place], [place] [address] [facility] [address] [place], [place] [phone] (Work) [phone] Social History Tobacco Use Types Packs/Day Years Used Date Smoking Tobacco: Every Day Sex Assigned at Date Recorded Not on file documented as of this encounter Last Filed Vital Signs Vital Sign Reading Time Taken Comments Blood Pressure 156/86 04/26/2020 2:31 PM POULTRY SERVICE TECHNICIAN Pulse 92 04/26/2020 2:31 PM POULTRY SERVICE TECHNICIAN Temperature 36.9 ??C (98.5 ??F) 04/26/2020 2:31 PM POULTRY SERVICE TECHNICIAN Respiratory Rate - - Oxygen Saturation - - Inhaled Oxygen Concentration - - Weight 95.5 kg (210 lb 8.6 oz) 04/26/2020 2:31 PM POULTRY SERVICE TECHNICIAN Height - - Body Mass Index - [...] 700 1400 3500 04/24/2020 04/25/2020 1 F1_RTInguinal 235 764 0993 04/24/2020 04/25/2020 1 F1_LT Leg 217 395 7304 04/24/2020 04/25/2020 1 Course Summary 04/24/2020 04/25/2020 [...] by: Deedee Fry R.N. 04/26/2020 2:54 PM POULTRY SERVICE TECHNICIAN ATTESTATION FOR MANAGEMENT VISIT I saw and evaluated the patient and participated in the gregory portions of the service as noted above. I reviewed the documentation of Ms. Deedee Fry RN and agree with the findings and plan. The patient appears well on exam. We will continue with radiation as planned and monitor weekly. Bethany Natarajan M.D., 04/26/2020 TRY SERVICE TECHNICIAN documented in this encounter Plan of Treatment [...]
--- OUTSIDE RECORDS SUMMARY | 2021-11-04 13:07 | XMS_ITS | Encounter Summary ---
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 [facility] Procedures Prior Auth Rad Tx [place] IMRT COMPLEX [address] [place] [address] Referral ID Status Reason Start Date Expiration Date Visits Requ ested Visits Authorized [id number] Closed 04/16/2020 04/16/2021 15 15 Encounter Details Date Type Department Care Team Description 04/29/2020 Hospital Encounter Department of Radiation Shaneka Natarajan I., Oncology in [place], [place] [address] [facility] [address] [place] [phone] Social History Tobacco Use Types Packs/Day Years [...]
--- OUTSIDE RECORDS SUMMARY | 2021-11-04 13:07 | XMS_ITS | Encounter Summary ---
:1940 Author Organization [facility] Address [address] [place] [address] Care Team Providers Name Role Phone Unavailable [...] Onc Treatment Planning CT Simulation [address] [place], [place] [address] Referral ID Status Reason Start Date Expiration Date Visits Requ ested Visits Authorized [id number] Closed 04/10/2020 04/10/2021 1 1 S VIAL BENDING CONVEYOR FEEDER Reason for Visit Radiation Therapy (Routine) - [...] Onc Treatment Planning CT Simulation [address] [place], [place] [address] Referral ID Status Reason Start Date Expiration Date Visits Requ ested Visits Authorized [id number] Closed 04/10/2020 04/10/2021 1 1 Encounter Details Date Type Department Care Team Description 04/16/2020 Hospital Encounter Department of Bethany Natarajan 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 CT images were transferred to the [employer] treatment planning system, after a reference isocenter was determined and marked. Segmentation and treatment planning will take place priorto treatment delivery. Patient set up and imaging was appropriate and completed without incident. Investigation Division Captain use:No S VIAL BENDING CONVEYOR FEEDER documented in this encounter Plan of Treatment Not on filedocumented as of this encounter Procedures Procedure Name Priority Date/Time Associated Comments Diagnosis INITIAL RAD ONC Routine 04/16/2020 2:00 PM Malignant Neoplasm Results for this TREATMENT PLANNING GLASS VIAL BENDING CONVEYOR FEEDER Of Lower Limb Basal pr ocedure are in CT SIMULATION Cell Carcinoma L eft the results Malignant Neoplasm section. 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 - 04/16/2020 2:00 PM GLASS VIAL BENDING CONVEYOR FEEDER Coral Alonso RTT ? 04/16/2020 ??4:02 PM Initial Rad Onc Treatment Planning CT Si mulation Date/Time: 04/16/2020 3:57 PM Performed by: Bethany Natarajan M.D. Authorized by: Bethany Natarajan M.D. Bethany Natarajan M.D. RADIATION ONCOLOGY ORDERABLE S Performing Organization Address City/State/ZIP Code Phon e Number [place] L[place] na documented in this encounter Visit Diagnoses Diagnosis 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
--- OUTSIDE RECORDS SUMMARY | 2021-11-04 13:07 | XMS_ITS | Encounter Summary ---
:1940 Author Organization [facility] Address [address] [place] [address] Care Team Providers Name Role Phone Unavailable [...] 12:35 Result s for this EXAM PM ACCOUNTING REPRESENTATIVE procedure are i n the results section. documented in this encounter Results DERMATOLOGY IMAGE EXAM (02/12/2017 12:35 PM ACCOUNTING REPRESENTATIVE) Specimen (Source) Anatomical Collection Method Collection Time Re ceived Time Location / / Volume Laterality 02/12/2017 12:00 PM ACCOUNTING REPRESENTATIVE Narrative [facility] - 02/12/2017 2:50 PM ACCOUNTING REPRESENTATIVE This order has been created and [...]
--- OUTSIDE RECORDS SUMMARY | 2021-11-04 13:07 | XMS_ITS | Encounter Summary ---
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 [facility] Procedures Prior Auth Rad Tx [place] IMRT COMPLEX [address] [place] [address] Referral ID Status Reason Start Date Expiration Date Visits Requ ested Visits Authorized [id number] Closed 04/16/2020 04/16/2021 15 15 Encounter Details Date Type Department Care Team Description 05/03/2020 Hospital Encounter Department of Radiation Shaneka Natarajan I., [place]cology [place] [address] [facility] [address] [place] [phone] Social History Tobacco Use Types Packs/Day Years [...]
--- OUTSIDE RECORDS SUMMARY | 2021-11-04 13:07 | XMS_ITS | Encounter Summary ---
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 [facility] Procedures Prior Auth Rad Tx [place] IMRT COMPLEX [address] [place] [address] Referral ID Status Reason Start Date Expiration Date Visits Requ ested Visits Authorized [id number] Closed 04/16/2020 04/16/2021 15 15 Encounter Details Date Type Department Care Team Description 05/02/2020 Hospital Encounter Department of Radiation Shaneka Natarajan I., [place]cology [place] [address] [facility] [address] [place] [phone] Social History Tobacco Use Types Packs/Day Years [...]
--- OUTSIDE RECORDS SUMMARY | 2021-11-04 13:07 | XMS_ITS | Encounter Summary ---
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 [facility] [place] [facility] Procedures Management Visit [address] [place], [place] [address] Referral ID Status Reason Start Date Expiration Date Visits V isits Requested Authorized [id number] Canceled 04/10/2020 04/10/2021 5 5 Encounter Details Date Type Department Care Team Description 05/01/2020 Hospital Encounter Department of Bethany Natarajan 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; in [place], [facility] Malignant Neoplasm Of Lower Limb Basal C ell Carcinoma Right [place], [place] [address] [facility] [address] [place], [place] [phone] (Work) [phone] Social History Tobacco Use Types Packs/Day Years Used Date Smoking Tobacco: Every Day Sex Assigned at Date Recorded Not on file documented as of this encounter Last Filed Vital Signs Vital Sign Reading Time Taken Comments Blood Pressure 148/82 05/01/2020 1:55 PM NURSE GENERAL DUTY Pulse 86 05/01/2020 1:55 PM NURSE GENERAL DUTY Temperature 36.3 ??C (97.3 ??F) 05/01/2020 1:55 PM NURSE GENERAL DUTY Respiratory Rate - - Oxygen Saturation - [...] Quynh Moreno P.A.-C. M.SJhon 05/01/2020 2:25 PM NURSE GENERAL DUTY E GENERAL DUTY Associated attestation - Bethany Natarajan M.D. - 05/01/2020 4:43 PM NURSE GENERAL DUTY I saw and evaluated the patient and [...]
--- OUTSIDE RECORDS SUMMARY | 2021-11-04 13:07 | XMS_ITS | Encounter Summary ---
:1940 Author Organization [facility] Address [address] [place] [address] Care Team Providers Name Role Phone Unavailable [...] 12:20 Result s for this EXAM PM STRAIGHTEDGE MACHINE OPERATOR HELPER procedure are i n the results section. documented in this encounter Results DERMATOLOGY IMAGE EXAM (02/12/2017 12:20 PM STRAIGHTEDGE MACHINE OPERATOR HELPER) Specimen (Source) Anatomical Collection Method Collection Time Re ceived Time Location / / Volume Laterality 02/12/2017 12:00 PM STRAIGHTEDGE MACHINE OPERATOR HELPER Narrative [facility] - 02/12/2017 2:49 PM STRAIGHTEDGE MACHINE OPERATOR HELPER This order has been created and [...]
--- OUTSIDE RECORDS SUMMARY | 2021-11-04 13:07 | XMS_ITS | Encounter Summary ---
:1940 Author Organization [facility] Address [address] [place] [address] Care Team Providers Name Role Phone Unavailable [...] 12:15 Result s for this EXAM PM GENERAL FARMWORKER procedure are i n the results section. documented in this encounter Results DERMATOLOGY IMAGE EXAM (02/12/2017 12:15 PM GENERAL FARMWORKER) Specimen (Source) Anatomical Collection Method Collection Time Re ceived Time Location / / Volume Laterality 02/12/2017 12:00 PM GENERAL FARMWORKER Narrative [facility] - 02/12/2017 2:49 PM GENERAL FARMWORKER This order has been created and auto-finalized [...]
--- OUTSIDE RECORDS SUMMARY | 2021-11-04 13:07 | XMS_ITS | Encounter Summary ---
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 [facility] Procedures Prior Auth Rad Tx [place] IMRT COMPLEX [address] [place] [address] Referral ID Status Reason Start Date Expiration Date Visits Requ ested Visits Authorized [id number] Closed 04/16/2020 04/16/2021 15 15 Encounter Details Date Type Department Care Team Description 04/24/2020 Hospital Encounter Department of Radiation Shaneka Natarajan I., Oncology in [place], [place] [address] [facility] [address] [place] [phone] Social History Tobacco Use Types Packs/Day Years [...]
--- OUTSIDE RECORDS SUMMARY | 2021-11-04 13:07 | XMS_ITS | Encounter Summary ---
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 [facility] Procedures Prior Auth Rad Tx [place] IMRT COMPLEX [address] [place], [place] [address] Referral ID Status Reason Start Date Expiration Date Visits Requ ested Visits Authorized [id number] Closed 04/16/2020 04/16/2021 15 15 INAL LAWYER Encounter Details Date Type Department Care Team Description 04/16/2020 Orders Only Department of Bethany Natarajan N eoplasm Of Radiation Oncology in [place] Adhikari Lower Limb Squamous [place] [address] [facility] Cell Carcinoma Left [address] [place], [place] (Primary Dx) [place] [phone] Social History Tobacco Use Types Packs/Day Years [...]
--- OUTSIDE RECORDS SUMMARY | 2021-11-04 13:07 | XMS_ITS | Encounter Summary ---
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 [facility] Procedures Prior Auth Rad Tx [place] IMRT COMPLEX [address] [place] [address] Referral ID Status Reason Start Date Expiration Date Visits Requ ested Visits Authorized [id number] Closed 04/16/2020 04/16/2021 15 15 Encounter Details Date Type Department Care Team Description 05/09/2020 Hospital Encounter Department of Radiation Shaneka Natarajan I., [place]cology [place] [address] [facility] [address] [place] [phone] Social History Tobacco Use Types Packs/Day Years [...]
--- OUTSIDE RECORDS SUMMARY | 2021-11-04 13:07 | XMS_ITS | Encounter Summary ---
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 [facility] Procedures Management Visit [address] [place] [address] Referral ID Status Reason Start Date Expiration Date Visits V isits Requested Authorized [id number] Canceled 04/10/2020 04/10/2021 5 5 Reason for [...] [facility] Procedures Management Visit [address] [place], [place] [address] Referral ID Status Reason Start Date Expiration Date Visits V isits Requested Authorized [id number] Canceled 04/10/2020 04/10/2021 5 5 Encounter Details Date Type Department Care Team Description 05/07/2020 Hospital Encounter Department of Garrison Casas Neoplasm Of Lower Limb Basal Cell Carcinoma Left; Radiation Oncology Corinne Cabello 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; in [place], [facility] Malignant Neoplasm Of Lower Limb Basal C ell Carcinoma Right [place], [place] [address] [facility] [address] [place], [place] [phone] [address] (Work) [phone] Social History Tobacco Use Types Packs/Day Years [...] I provided patient with Moist Skin Reaction [id number] pamphlet yesterday. I encouraged him to [...] Casas M.D. 05/07/2020 4:51 PM CDT [facility] [address] [place] [address] documented in this encounter Plan of Treatment Scheduled Orders Name Type Priority Associated Diagnoses Order S chedule Management Visit Radiation Oncology Routine Malignant Neoplasm Once for 1 Of Lower Limb Basal Occurren reentta starting Cell Carcinoma L eft 05/07/2020 until [...]
--- OUTSIDE RECORDS SUMMARY | 2021-11-04 13:07 | XMS_ITS | Encounter Summary ---
:1940 Author Organization [facility] Address [address] [place] [address] Care Team Providers Name Role Phone Unavailable Primary Care Provider Unavailable Encounter Details Date Type Department Care Team Description 02/12/2017 Hospital Encounter HX RST DERM SURG OP Avni Gaffney [facility] M.D. [address] [place] [address] (Wo rk) Social History Tobacco Use Types Packs/Day Years Used Date Smoking Tobacco: Never Assessed Sex Assigned at Date Recorded Not on file documented as of this encounter Last Filed Vital Signs Vital Sign Reading Time Taken Comments Blood Pressure 141/85 02/12/2017 8:05 AM PALLIATIVE CARE COORDINATOR Vital sign result from Clinical Notes. Pulse 89 02/12/2017 8:05 AM PALLIATIVE CARE COORDINATOR Vital sign result from Clinical Notes. Temperature [...]
--- OUTSIDE RECORDS SUMMARY | 2021-11-04 13:07 | XMS_ITS | Encounter Summary ---
:1940 Author Organization [facility] Address [address] [place] [address] Care Team Providers Name Role Phone Unavailable [...] 12:05 Result s for this EXAM PM HISTORY DEPARTMENT CHAIR procedure are i n the results section. documented in this encounter Results DERMATOLOGY IMAGE EXAM (02/12/2017 12:05 PM HISTORY DEPARTMENT CHAIR) Specimen (Source) Anatomical Collection Method Collection Time Re ceived Time Location / / Volume Laterality 02/12/2017 12:00 PM HISTORY DEPARTMENT CHAIR Narrative [facility] - 02/12/2017 2:49 PM HISTORY DEPARTMENT CHAIR This order has been created and auto-finalized [...]
--- OUTSIDE RECORDS SUMMARY | 2021-11-04 13:07 | XMS_ITS | Encounter Summary ---
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 [facility] Procedures Prior Auth Rad Tx [place] IMRT COMPLEX [address] [place] [address] Referral ID Status Reason Start Date Expiration Date Visits Requ ested Visits Authorized [id number] Closed 04/16/2020 04/16/2021 15 Encounter Details Date Type Department Care Team Description 05/06/2020 Hospital Encounter Department of Radiation Shaneka Natarajan I., Oncology in [place] [address] [facility] [address] [place] [phone] Social History Tobacco Use Types Packs/Day Years [...]
--- OUTSIDE RECORDS SUMMARY | 2021-11-04 13:07 | XMS_ITS | Encounter Summary ---
:1940 Author Organization [facility] Address [address] [place] [address] Care Team Providers Name Role Phone Unavailable [...] 12:00 Result s for this EXAM PM INSTRUCTIONAL DESIGN SPECIALIST procedure are i n the results section. documented in this encounter Results DERMATOLOGY IMAGE EXAM (01/19/2017 12:00 PM INSTRUCTIONAL DESIGN SPECIALIST) Specimen (Source) Anatomical Location Collection Method / Collectio n Time Received Time / Laterality Volume Narrative [facility] - 01/19/2017 4:19 PM INSTRUCTIONAL DESIGN SPECIALIST This order has been created and auto-finalized [...]
--- OUTSIDE RECORDS SUMMARY | 2021-11-04 13:07 | XMS_ITS | Encounter Summary ---
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 [facility] Procedures Prior Auth Rad Tx [place] IMRT COMPLEX [address] [place] [address] Referral ID Status Reason Start Date Expiration Date Visits Requ ested Visits Authorized [id number] Closed 04/16/2020 04/16/2021 15 15 Encounter Details Date Type Department Care Team Description 04/30/2020 Hospital Encounter Department of Radiation Shaneka Natarajan I., Oncology in [place], [place]inne [place] [address] [facility] [address] [place] [phone] Social History Tobacco Use Types Packs/Day Years [...]
--- OUTSIDE RECORDS SUMMARY | 2021-11-04 13:07 | XMS_ITS | Encounter Summary ---
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 [facility] Procedures Prior Auth Rad Tx [place] IMRT COMPLEX [address] [place] [address] Referral ID Status Reason Start Date Expiration Date Visits Requ ested Visits Authorized [id number] Closed 04/16/2020 04/16/2021 15 15 Encounter Details Date Type Department Care Team Description 04/26/2020 Hospital Encounter Department of Radiation Shaneka Natarajan I., Oncology in [place], Corinne [place] [address] [facility] [address] [place] [phone] Social History Tobacco Use Types Packs/Day Years [...]
--- OUTSIDE RECORDS SUMMARY | 2021-11-04 13:07 | XMS_ITS | Encounter Summary ---
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 [facility] Procedures Prior Auth Rad Tx [place] IMRT COMPLEX [address] [place] [address] Referral ID Status Reason Start Date Expiration Date Visits Requ ested Visits Authorized [id number] Closed 04/16/2020 04/16/2021 15 15 Encounter Details Date Type Department Care Team Description 05/07/2020 Hospital Encounter Department of Radiation Shaneka Natarajan I., Oncology in [place] [address] [facility] [address] [place] [phone] Social History Tobacco Use Types Packs/Day Years [...]
--- OUTSIDE RECORDS SUMMARY | 2021-11-04 13:07 | XMS_ITS | Encounter Summary ---
:1940 Author Organization [facility] Address [address] [place] [address] Care Team Providers Name Role Phone Unavailable [...] 12:00 Result s for this EXAM PM NEWS CAMERA PERSON procedure are i n the results section. documented in this encounter Results DERMATOLOGY IMAGE EXAM (02/12/2017 12:00 PM NEWS CAMERA PERSON) Specimen (Source) Anatomical Collection Method Collection Time Re ceived Time Location / / Volume Laterality 02/12/2017 12:00 PM NEWS CAMERA PERSON Narrative [facility]IM[facility] - 02/12/2017 2:49 PM NEWS CAMERA PERSON This order has been created and auto-finalized [...]
--- OUTSIDE RECORDS SUMMARY | 2021-11-04 13:07 | XMS_ITS | Encounter Summary ---
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 [facility] Procedures Management Visit [address] [place], [place] [address] Referral ID Status Reason Start Date Expiration Date Visits V isits Requested Authorized [id number] Canceled 04/10/2020 04/10/2021 5 5 Reason for [...] [facility] Center Procedures Management Visit [address] [place], [place] [address] Referral ID Status Reason Start Date Expiration Date Visits V isits Requested Authorized [id number] Canceled 04/10/2020 04/10/2021 5 5 Encounter Details Date Type Department Care Team Description 05/06/2020 Hospital Encounter Department of Garrison Casas Neoplasm Of Lower Limb Basal Cell Carcinoma Left; Radiation Oncology Corinne Cabello 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; in [place], [address] [place] [address] Malignant Neoplasm Of Lower Limb Basal C ell Carcinoma Right [place], [place] [address] [facility] [address] [place], [place] [phone] (Work) [phone] Social History Tobacco Use Types Packs/Day Years [...]
--- OUTSIDE RECORDS SUMMARY | 2021-11-04 13:07 | XMS_ITS | Encounter Summary ---
:1940 Author Organization [facility] Address [address] [place] [address] Care Team Providers Name Role Phone Unavailable [...] 04/16/2020 1:28 PM Re sults for this HYPERION ADMINISTRATOR procedure are i n the results section. documented in this encounter Results Leg-Oncology Image Exam (04/16/2020 1:28 PM HYPERION ADMINISTRATOR) Specimen (Source) Anatomical Collection Method Collection Time Re ceived Time Location / / Volume Laterality 04/16/2020 1:25 PM HYPERION ADMINISTRATOR Narrative [facility] - 04/16/2020 1:28 PM HYPERION ADMINISTRATOR This order has been created and auto-finalized [...]
--- OUTSIDE RECORDS SUMMARY | 2021-11-04 13:07 | XMS_ITS | Encounter Summary ---
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 [facility] Procedures Prior Auth Rad Tx [place] IMRT COMPLEX [address] [place] [address] Referral ID Status Reason Start Date Expiration Date Visits Requ ested Visits Authorized [id number] Closed 04/16/2020 04/16/2021 15 15 Encounter Details Date Type Department Care Team Description 05/08/2020 Hospital Encounter Department of Radiation Shaneka Natarajan I., Oncology in [place] [address] [place] [address] [place] [phone] Social History Tobacco Use Types Packs/Day Years [...]
--- OUTSIDE RECORDS SUMMARY | 2021-11-04 13:07 | XMS_ITS | Encounter Summary ---
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 [place], [place] [address] [facility] [address] [place], [place] [phone] (Work) [phone] Social History Tobacco Use Types Packs/Day Years Used Date Smoking Tobacco: Every Day Sex Assigned at Date Recorded Not on file documented as of this encounter Last Filed Vital Signs Vital Sign Reading Time Taken Comments Blood Pressure 124/76 04/16/2020 12:50 PM RELOCATION MANAGER Pulse 93 04/16/2020 12:50 PM RELOCATION MANAGER Temperature 37.2 ??C (99 ??F) 04/16/2020 12:50 PM RELOCATION MANAGER Respiratory Rate - - Oxygen Saturation - - Inhaled Oxygen Concentration - - Weight 95.5 kg (210 lb 8.6 oz) 04/16/2020 12:50 PM RELOCATION MANAGER Height - - Body Mass Index - [...] surgery, nose SOCIAL HISTORY He lives in [place], [place]. He lives at [place] in an apartment. He is single. 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 He is mobile with [...] Photos were taken and are available in [employer] after obtaining consent. 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 04/16/2020 4:52 PM RELOCATION MANAGER Radiation Oncology [facility] [address] [place], [place] [id number] CATION MANAGER documented in this encounter Miscellaneous Notes Addendum Note - Mame Amezquita - 04/16/2020 1:00 PM RELOCATION MANAGER Encounter addended by: Mame Amezquita on: 04/17/2020 8:34 AM Actions taken: Letter saved CATION MANAGER documented in this encounter Plan of Treatment Not on filedocumented as of this encounter Visit Diagnoses Diagnosis Malignant Neoplasm Of Lower Limb Basal C ell Carcinoma Left - Primary Malignant Neoplasm Of Lower Limb Basal C ell Carcinoma Right 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
--- OUTSIDE RECORDS SUMMARY | 2021-11-04 13:07 | XMS_ITS | Encounter Summary ---
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 [facility] Procedures Prior Auth Rad Tx [place] IMRT COMPLEX [address] [place] [address] Referral ID Status Reason Start Date Expiration Date Visits Requ ested Visits Authorized [id number] Closed 04/16/2020 04/16/2021 15 15 Encounter Details Date Type Department Care Team Description 05/01/2020 Hospital Encounter Department of Radiation Shaneka Natarajan I., Oncology in [place], Corinne [place] [address] [facility] [address] [place] [phone] Social History Tobacco Use Types Packs/Day Years [...]
--- OUTSIDE RECORDS SUMMARY | 2021-11-04 13:07 | XMS_ITS | Encounter Summary ---
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 [facility] Procedures Prior Auth Rad Tx [place] IMRT COMPLEX [address] [place] [address] Referral ID Status Reason Start Date Expiration Date Visits Requ ested Visits Authorized [id number] Closed 04/16/2020 04/16/2021 15 15 Encounter Details Date Type Department Care Team Description 04/25/2020 Hospital Encounter Department of Radiation Shaneka Natarajan I., Oncology in [place], Corinne [place] [address] [facility] [address] [place] [phone] Social History Tobacco Use Types Packs/Day Years [...]
== END 2021-11-04 13:05 | disposition home or self-care (01) ==
LOC: WOUND 13:04
PROVIDERS: PCP Family Medicine; Visit Provider Nurse Practitioner Family
DX: L59.8 Other specified disorders of the skin and subcutaneous tissue related to radiation (principal); L97.812 Non-pressure chronic ulcer of other part of right lower leg with fat layer exposed; Z99.3 Dependence on wheelchair
CPT/HCPCS: 97597

== ENCOUNTER 2021-11-04 14:25 | Outpatient (CLI) | payer OTHER, SELFPAY ==
--- OUTSIDE RECORDS SUMMARY | 2021-11-04 14:34 | XMS_ITS | Encounter Summary ---
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 [facility] Procedures Prior Auth Rad Tx [place] IMRT COMPLEX [address] [place] [address] Referral ID Status Reason Start Date Expiration Date Visits Requ ested Visits Authorized [id number] Closed 04/16/2020 04/16/2021 15 15 Encounter Details Date Type Department Care Team Description 05/08/2020 Hospital Encounter Department of Radiation Shaneka Natarajan I., Oncology in [place] [address] [facility] [address] [place] [phone] Social History Tobacco Use Types Packs/Day Years [...]
--- OUTSIDE RECORDS SUMMARY | 2021-11-04 14:34 | XMS_ITS | Encounter Summary ---
:1940 Author Organization [facility] Address [address] [place] [address] Care Team Providers Name Role Phone Unavailable Primary Care Provider Unavailable Reason for Visit Reason Comments Med Refill Encounter Details Date Type Department Care Team Description 08/08/2020 Clinical Communication Department of Travis Hall Refjoanne Radiation Oncology in [facility], [place] [address] [place] [phone] Social History Tobacco Use Types Packs/Day Years Used Date Smoking Tobacco: Every Day Sex Assigned at Date Recorded Not on file documented as of this encounter Miscellaneous Notes Telephone Encounter - Deedee Fry R.N. - 08/08/2020 1:06 PM CDT Information Discussed I called and left voicemail on patient's phone requesting call back. Patient reported that he was taking Dunbar twice a day at his last in office visit with us. PLAN Dr. Natarajan and I will send through refill on Dunbar to get him through until August 16, 2020, when he is scheduled for follow up with Dr. Natarajan in [place]. Disposition/Recommendation: I requested call back, refill will [...] can be done or not Phone number: [phone] Is it okay to leave a voicemail on answering machine with test results? Yes Pharmacy (if medication related): [facility] [address] [place] [id number] [address] documented in this encounter Plan of Treatment Not on filedocumented as of this encounter Visit Diagnoses Not on filedocumented in this encounter
--- OUTSIDE RECORDS SUMMARY | 2021-11-04 14:34 | XMS_ITS | Encounter Summary ---
:1940 Author Organization [facility] Address [address] [place] [address] Care Team Providers Name Role Phone Unavailable Primary Care Provider Unavailable Reason for Referral Outpatient (Routine) - Closed Specialty Diagnoses / Procedures Referred By Contact Refer red To Contact Diagnoses Swelling Testicle Garrison Casas M.D. 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 The patient will continue with treatment as planned. Signed by: Garrison Casas M.D. 05/08/2020 2:54 PM CDT [facility] [address] [place] [address] documented in this encounter Plan of Treatment [...]
--- OUTSIDE RECORDS SUMMARY | 2021-11-04 14:34 | XMS_ITS | Encounter Summary ---
:1940 Author Organization [facility] Address [address] [place] [address] Care Team Providers Name Role Phone Unavailable Primary Care Provider Unavailable Reason for Referral Outpatient (Routine) - Closed Specialty Diagnoses / Procedures Referred By Contact Refer red To Contact Radiation Oncology Bethany Natarajan [facility] Jason Sun [address] [place] [address] Referral ID Status Reason Start Date Expiration Date Visits Requ ested Visits Authorized [id number] Closed 05/15/2020 05/15/2021 1 1 Scheduling Instructions Deedee first to assess skin Radiation Therapy (Routine) - Canceled Specialty Diagnoses / Procedures Referred By Contact Refer red To Contact Diagnoses 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 Radiation Oncology [place] can be contacted at anytime for any questions or concerns. Patient stated a full understanding to the plan of care discussed today. Toxicities reviewed with Dr. Natarajan today. Signed by: Deedee Fry R.N. 05/15/2020 2:59 PM CDT [facility] [address] [place] [address] documented in this encounter Plan of Treatment [...]
--- OUTSIDE RECORDS SUMMARY | 2021-11-04 14:34 | XMS_ITS | Encounter Summary ---
:1940 Author Organization [facility] Address [address] [place] [address] Care Team Providers Name Role Phone Unavailable Primary Care Provider Unavailable Reason for Referral Outpatient (Routine) - Closed Specialty Diagnoses / Procedures Referred By Contact Refer jose luis To Contact Radiation Oncology Bethany Natarajan [facility] Feli Gomez M.D. [address] [place] [phone] Referral ID Status Reason Start Date Expiration Date Visits Requ ested Visits Authorized [id number] Closed 05/28/2020 05/28/2021 1 1 Scheduling Instructions 2-3 weeks with CECY and Deedee Reason for Visit Outpatient (Routine) - Closed Specialty Diagnoses / Procedures Referred By Contact Sofi amaya To Contact Radiation Oncology Bethany Natarajan [facility] Feli Gomez M.D. [address] [place] [phone] Referral ID Status Reason Start Date Expiration Date Visits Requ ested Visits Authorized [id number] Closed 05/28/2020 05/28/2021 1 1 Encounter Details Date Type Department Care Team Description 06/11/2020 Hospital Encounter Department of Bethany Natarajan (Primary Dx) Radiation Oncology Corinne Adhikari in [place], [address] [place] [address] [facility] [address] [place], [place] [phone] (Work) [phone] Social History Tobacco Use Types Packs/Day Years [...] a 8 out of 10.He takes 1 [place] in the morning and 1 at bedtime. [...] will send through prescription refill on his [place] to his preferred pharmacy today. Patient is to not exceed 3200 mg of Ibuprofen a day. We encouraged patient to trial warm compresses for acute right eye mattering. We will send through referral to [facility]. We will see Mr. Tl Lugo in a follow-up visit in late July. The patient was told to contact us sooner with questions or concerns. He verbally expressed his understanding of the plan. Signed by: Deedee Fry R.N. 06/11/2020 1:09 PM CDT [facility] [address] [place] [address] documented in this encounter Plan of Treatment Scheduled Referrals Name Type Priority Associated Order Schedule Diagnoses Radiation Oncology Outpatient Referral Routine On ce for 1 office visit Occurrences sta rting (clinic) 06/11/2020 unti l 06/11/2020 documented as of this encounter Visit Diagnoses Diagnosis Red Eye - Primary documented in this encounter
--- OUTSIDE RECORDS SUMMARY | 2021-11-04 14:34 | XMS_ITS | Encounter Summary ---
:1940 Author Organization 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 [facility] Procedures Prior Auth Rad Tx [place] IMRT COMPLEX [address] [place] [address] Referral ID Status Reason Start Date Expiration Date Visits Requ ested Visits Authorized [id number] Closed 04/16/2020 04/16/2021 15 15 Encounter Details Date Type Department Care Team Description 05/13/2020 Hospital Encounter Department of Radiation Shaneka Natarajan I., Oncology in [place] [address] [facility] [address] [place] [phone] Social History Tobacco Use Types Packs/Day Years [...]
--- OUTSIDE RECORDS SUMMARY | 2021-11-04 14:34 | XMS_ITS | Encounter Summary ---
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 I encouraged him to [...] Garrison Casas M.D. 05/07/2020 4:51 PM CDT [facility] Therapy [facility] [address] [place] [address] documented in this encounter Plan of Treatment [...]
--- OUTSIDE RECORDS SUMMARY | 2021-11-04 14:34 | XMS_ITS | Encounter Summary ---
:1940 Author Organization [facility] Address [address] [place] [address] Care Team Providers Name Role Phone Unavailable Primary Care Provider Unavailable Reason for Referral Specialty Diagnoses / Procedures Referred By Contact Refer red To Contact Bethany Natarajan M.D. [facility] Region [address] [place] [phone] Referral ID Status Reason Start Date Expiration Date Visits Requ ested Visits Authorized UREMENT COORDINATOR Encounter Details Date Type Department Care Team Description 04/30/2020 - Hospital Encounter Department of Aramis Natarajan M.D. [address] [place] [phone] Malignant Neoplasm Of Lower Limb Basal C ell Carcinoma Left; 05/17/2020 Radiation Oncology Deedee Fry R.N. [address] [place] [address] 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; in [place], Malignant Henry plasm Of Lower Limb Basal Cell Carcinoma Right [place] [address] [place] [phone] Social History Tobacco Use Types Packs/Day Years [...]
--- OUTSIDE RECORDS SUMMARY | 2021-11-04 14:34 | XMS_ITS | Clinical Summary ---
:1940 Author Organization [facility] Address [address] [place] [address] Care Team Providers Name Role Phone Unavailable Primary Care Provider Unavailable Source Comments Patient records contain information from all sites at [facility]. For routine questions regarding patient records, call [phone] during business hours, M-F 8:00 AM - 5:00 PM Central Time. Record requests for emergency care only can be directed to [phone] at any time.[facility] Allergies Active Allergy Reactions Severity [...] Phone Addre ss Type Group [facility] [id number] 2021-Present [phone] [address] [place] [address]
--- OUTSIDE RECORDS SUMMARY | 2021-11-04 14:34 | XMS_ITS | Clinical Summary ---
:1940 Author Organization [facility] [place] [address] Care Team Providers Name Role Phone Alfredo [...] was well controlled her e on dilaudid MANAGER COMPETITIVE INTELLIGENCE on following regimen: 0 04/16/2014 Active mg/mL inj LOADING DOSE: 0.2 mg for 1 dose MANAGER COMPETITIVE INTELLIGENCE BOLUS DOSE: 0.2-0.3 mg LOCKOUT INTERVAL: 10 [...] 3-15-10 05/06/2009 Cardiomyopathy , ischemic; old inf PA 05/02/2009 Overview: Per preop, EF of 39% [...] Comments Blood Pressure 123/73 04/16/2014 2:19 PM PICKING SUPERVISOR Pulse 115 04/16/2014 2:19 PM PICKING SUPERVISOR Temperature 38.3 ??C (100.9 ??F) 04/16/2014 3:30 PM PICKING SUPERVISOR Respiratory Rate 20 04/16/2014 2:19 PM PICKING SUPERVISOR Oxygen Saturation 94% 04/16/2014 2:19 PM PICKING SUPERVISOR Inhaled Oxygen Concentration - - Weight 86.1 kg (189 lb 13.1 oz) 04/16/2014 5:00 AM PICKING SUPERVISOR Height 180.3 cm (5' 10.98) 04/02/2014 12:00 AM PICKING SUPERVISOR Body Mass Index 26.49 04/02/2014 12:00 AM PICKING SUPERVISOR Plan of Treatment Health Maintenance Due Date [...] 65+ 10/23/2021 Medical Devices Implanted Type Area Manufacturing Engineer Automotive Device Shelf Model / Identifier Expiration Serial / Date Lot Screw Self Drilling 3.5x15mm - [id number] N/A: Spine SOFAMOR [id number] [id number] / Implanted: Qty: 4 on 06/24/[address] [facility] / Humeral Tray Left: [id number] / Implanted: Qty: 1 on 03/17/[address] [facility] Shoulder / [id number] Description: HUMERAL TRAY Explanted Type Area Manufacturing Engineer Automotive Device Shelf Model / Identifier Expiration Serial / Date Lot Patch Vasc 0.8x8cm Xenosure Biological Pericardial - [id number] Right: Lemaitre 0.8P8# / Explanted: Qty: 1 on 03/09/[address] [facility] [employer] / [id number] Results Not on filefrom Last 3 Months Insurance Payer Benefit Plan / Subscriber ID Effective Dates Phone Addre ss Type Group MARICEL CONNELLY [facility] [id number] 2015-Present [address] [place] [address] Guarantor Name Account Type Relation to Date of Phone Bill ing Patient Address Tl Lugo Personal/Family Self 1940 [phone] (Home) [place] [address] Advance Directives Documents on File Type Date Recorded Patient Pulmonologist Explanati on Healthcare Directive 05/12/2009 Healthcare Directive 06/26/2010 Latest Code Status on File Code Status Date Activated Date Inactivated Comments Full Code 04/16/2014 2:21 PM Full Code 03/07/2014 8:16 PM 04/16/2014 2:21 PM Full Code 03/07/2014 12:01 PM 03/07/2014 8:16 PM Full Code 02/28/2014 6:12 AM 02/28/2014 11:11 PM Full Code 03/17/2012 12:44 PM 03/19/2012 4:35 PM Care Teams Engagement Executive Relationship Specialty Start Date End Date Alfredo Starr MD PCP - General 11/13/08
--- OUTSIDE RECORDS SUMMARY | 2021-11-04 14:34 | XMS_ITS | Encounter Summary ---
:1940 Author Organization [facility] Address [address] [place] [address] Care Team Providers Name Role Phone Unavailable Primary Care Provider Unavailable Encounter Details Date Type Department Care Team Description 07/10/2020 Clinical Communication Department of Bethany Natarajan Radiation Oncology in [place] Adhikari [facility] [address] [facility] [address] [place] [phone] Social History Tobacco Use Types Packs/Day Years [...] informed him that a prescription for the [place] has been sent to the [facility] in [place]. Phone number: [phone] Is it okay to leave a voicemail on answering machine with test results? Yes Pharmacy (if medication related): N/A Elif Parkinson documented in this encounter Plan of Treatment Not on filedocumented as of this encounter Visit Diagnoses Not on filedocumented in this encounter
--- OUTSIDE RECORDS SUMMARY | 2021-11-04 14:34 | XMS_ITS | Encounter Summary ---
:1940 Author Organization [facility] Address [address] [place] [address] Care Team Providers Name Role Phone Unavailable Primary Care Provider Unavailable Reason for Visit Reason Comments Follow-up Encounter Details Date Type Department Care Team Description 10/30/2020 Clinical Communication Department of Bethany Natarajanzuhair Radiation Oncology in [place] Adhikari [facility] [address] [facility] [address] [place] [phone] Social History Tobacco Use Types Packs/Day Years [...] center to help with this. Phone number: [phone] Is it okay to leave a voicemail on answering machine with test results? No Pharmacy (if medication related): N/A Elif Parkinson documented in this encounter Plan of Treatment Not on filedocumented as of this encounter Visit Diagnoses Not on filedocumented in this encounter
--- OUTSIDE RECORDS SUMMARY | 2021-11-04 14:34 | XMS_ITS | Encounter Summary ---
:1940 Author Organization [facility] Address [address] [place] [address] Care Team Providers Name Role Phone Unavailable Primary Care Provider Unavailable Reason for Visit Reason Comments Med Refill Encounter Details Date Type Department Care Team Description 07/09/2020 Clinical Communication Department of Bethany Natarajan ed Refill Radiation Oncology in [place] Adhikari [facility] [address] [facility] [address] [place] [phone] Social History Tobacco Use Types Packs/Day Years [...] would like a refill today. Phone number: [phone] Is it okay to leave a voicemail on answering machine with test results? Yes Pharmacy (if medication related): [facility] [address] [place] [address] [facility] [address] [facility] [address] Paula Hall documented in this encounter Plan of Treatment Not on filedocumented as of this encounter Visit Diagnoses Not on filedocumented in this encounter
--- OUTSIDE RECORDS SUMMARY | 2021-11-04 14:34 | XMS_ITS | Encounter Summary ---
:1940 Author Organization [facility] Address [address] [place] [address] Care Team Providers Name Role Phone Unavailable Primary Care Provider Unavailable Encounter Details Date Type Department Care Team Description 09/27/2020 Clinical Communication Department of Bethany Natarajan Radiation Oncology in [place] Adhikari [facility] [address] [facility] [address] [place] [phone] Social History Tobacco Use Types Packs/Day Years [...]
--- OUTSIDE RECORDS SUMMARY | 2021-11-04 14:34 | XMS_ITS | Encounter Summary ---
:1940 Author Organization [facility] Address [address] [place] [address] Care Team Providers Name Role Phone Unavailable Primary Care Provider Unavailable Encounter Details Date Type Department Care Team Description 05/15/2020 Hospital Encounter Department of Radiation Shaneka Natarajan I., Oncology in [facility] [address] [facility] [address] [place] [phone] Social History Tobacco Use Types Packs/Day Years [...]
--- OUTSIDE RECORDS SUMMARY | 2021-11-04 14:34 | XMS_ITS | Encounter Summary ---
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 [facility] Procedures Prior Auth Rad Tx [place] IMRT COMPLEX [address] [place] [address] Referral ID Status Reason Start Date Expiration Date Visits Requ ested Visits Authorized [id number] Closed 04/16/2020 04/16/2021 15 15 Encounter Details Date Type Department Care Team Description 05/14/2020 Hospital Encounter Department of Radiation Shaneka Natarajan I., Oncology in [place] [address] [facility] [address] [place] [phone] Social History Tobacco Use Types Packs/Day Years [...]
--- OUTSIDE RECORDS SUMMARY | 2021-11-04 14:34 | XMS_ITS | Encounter Summary ---
:1940 Author Organization [facility] Address [address] [place] [address] Care Team Providers Name Role Phone Unavailable Primary Care Provider Unavailable Reason for Referral Specialty Diagnoses / Procedures Referred By Contact Refer red To Contact Dona Zuniga M.D. [facility] Region [address] [place] [address] Referral ID Status Reason Start Date Expiration Date Visits Requ ested Visits Authorized Encounter Details Date Type Department Care Team Description 11/01/2020 Orders Only [facility] PCP [facility] MNT Sa greyson Zuniga M.D. [address] [place] [phone] (Wo rk) Social History Tobacco [...]
--- OUTSIDE RECORDS SUMMARY | 2021-11-04 14:34 | XMS_ITS ---
:1940 Author Organization [facility] Address [address] [place] [address] Care Team Providers Name Role Phone Unavailable [...] Elapsed Days Session Dose Total Dos e [id number] 05/15/2020 21 300 cGy 4,500 cGy [id number] 05/06/2020 12 425 cGy 3,825 cGy [id number] 04/26/2020 2 700 cGy 2,100 cGy
--- OUTSIDE RECORDS SUMMARY | 2021-11-04 14:34 | XMS_ITS | Encounter Summary ---
:1940 Author Organization [facility] Address [address] [place] [address] Care Team Providers Name Role Phone Unavailable Primary Care Provider Unavailable Reason for Referral Outpatient (Routine) - Closed Specialty Diagnoses / Procedures Referred By Contact Refer red To Contact Radiation Oncology Bethany Natarajan [facility] Feli Gomez M.D. [address] [place] [address] Referral ID Status Reason Start Date Expiration Date Visits Requ ested Visits Authorized [id number] Closed 05/28/2020 05/28/2021 1 1 Scheduling Instructions 2-3 weeks with CECY and Deedee Outpatient (Routine) - Closed Specialty Diagnoses / Procedures Referred By Contact Refer red To Contact Radiation Oncology Bethany Natarajan [facility] Feli Gomez M.D. [address] [place] [address] Referral ID Status Reason Start Date Expiration Date Visits Requ ested Visits Authorized [id number] Closed 05/15/2020 05/15/2021 1 1 Scheduling Instructions Deedee first to assess skin Reason for Visit Outpatient (Routine) - Closed Specialty Diagnoses / Procedures Referred By Contact Refer red To Contact Radiation Oncology Bethany Natarajan [facility] Feli Gomez M.D. 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 05/28/2020 1:16 PM CDT [facility]iation Therapy [facility] [address] [place] [address] ATTESTATION FOR FOLLOW-UP VISIT I saw and [...]
--- OUTSIDE RECORDS SUMMARY | 2021-11-04 14:34 | XMS_ITS | Encounter Summary ---
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 [facility] Procedures Prior Auth Rad Tx [place] IMRT COMPLEX [address] [place] [address] Referral ID Status Reason Start Date Expiration Date Visits Requ ested Visits Authorized [id number] Closed 04/16/2020 04/16/2021 15 15 Encounter Details Date Type Department Care Team Description 05/09/2020 Hospital Encounter Department of Radiation Shaneka Natarajan I., Oncology in [place] [address] [facility] [address] [place] [phone] Social History Tobacco Use Types Packs/Day Years [...]
--- OUTSIDE RECORDS SUMMARY | 2021-11-04 14:35 | XMS_ITS | Encounter Summary ---
:1940 Author Organization [facility] Address [address] [place] [address] Care Team Providers Name Role Phone Unavailable Primary Care Provider Unavailable Encounter Details Date Type Department Care Team Description 02/12/2017 Hospital Encounter HX RST DERM SURG OP Avni G[facility] M.D. [address] [place] [address] (Wo rk) Social History Tobacco Use Types Packs/Day Years Used Date Smoking Tobacco: Never Assessed Sex Assigned at Date Recorded Not on file documented as of this encounter Last Filed Vital Signs Vital Sign Reading Time Taken Comments Blood Pressure 141/85 02/12/2017 8:05 AM COFFEE SAMPLER Vital sign result from Clinical Notes. Pulse 89 02/12/2017 8:05 AM COFFEE SAMPLER Vital sign result from Clinical Notes. Temperature [...]
--- OUTSIDE RECORDS SUMMARY | 2021-11-04 14:35 | XMS_ITS | Encounter Summary ---
:1940 Author Organization [facility] Address [address] [place] [address] Care Team Providers Name Role Phone Unavailable [...] 04/16/2020 1:28 PM Re sults for this FLUORESCENT SOLUTION MIXER procedure are i n the results section. documented in this encounter Results Leg-Oncology Image Exam (04/16/2020 1:28 PM FLUORESCENT SOLUTION MIXER) Specimen (Source) Anatomical Collection Method Collection Time Re ceived Time Location / / Volume Laterality 04/16/2020 1:25 PM FLUORESCENT SOLUTION MIXER Narrative IIMS - 04/16/2020 1:28 PM FLUORESCENT SOLUTION MIXER This order has been created and auto-finalized [...]
--- OUTSIDE RECORDS SUMMARY | 2021-11-04 14:35 | XMS_ITS | Encounter Summary ---
:1940 Author Organization [facility] Address [address] [place] [address] Care Team Providers Name Role Phone Unavailable [...] 12:20 Result s for this EXAM PM QUALITY CONTROL EXPERT procedure are i n the results section. documented in this encounter Results DERMATOLOGY IMAGE EXAM (02/12/2017 12:20 PM QUALITY CONTROL EXPERT) Specimen (Source) Anatomical Collection Method Collection Time Re ceived Time Location / / Volume Laterality 02/12/2017 12:00 PM QUALITY CONTROL EXPERT Narrative IIMS - 02/12/2017 2:49 PM QUALITY CONTROL EXPERT This order has been created and auto-finalized [...]
--- OUTSIDE RECORDS SUMMARY | 2021-11-04 14:35 | XMS_ITS | Encounter Summary ---
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 [facility] Procedures Prior Auth Rad Tx SD IMRT COMPLEX [address] [place] [address] Referral ID Status Reason Start Date Expiration Date Visits Requ ested Visits Authorized [id number] Closed 04/16/2020 04/16/2021 15 15 Encounter Details Date Type Department Care Team Description 05/02/2020 Hospital Encounter Department of Radiation Shaneka Natarajan I., Oncology in [place] [address] [facility] [address] [place] [phone] Social History Tobacco Use Types Packs/Day Years [...]
--- OUTSIDE RECORDS SUMMARY | 2021-11-04 14:35 | XMS_ITS | Encounter Summary ---
:1940 Author Organization [facility] Address [address] [place] [address] Care Team Providers Name Role Phone Unavailable Primary Care Provider Unavailable Reason for Visit Reason Comments Lab Monitoring Encounter Details Date Type Department Care Team Description 04/19/2020 Documentation Department of Radiation Deedee Fry, Lab Monitoring Oncology in [facility] [address] [facility] [address] [place] [phone] (Wo rk) Social History Tobacco Use Types Packs/Day Years Used Date Smoking Tobacco: Every Day Sex Assigned at Date Recorded Not on file documented as of this encounter Progress Notes Deedee Fry, RJhonN. - 04/19/2020 10:39 AM CST Lab result entered in T LIME DRAWER documented in this encounter Plan of Treatment Not on filedocumented as of this encounter Procedures Procedure Name Priority Date/Time Associated Diagnosis Comme nts LABEXT SARS Routine 04/17/2020 12:00 AM Results for this CORONAVIRUS-2 BURNT LIME DRAWER procedure are in (COVID-19) RNA the results section. documented in this encounter Results EXT SARS Coronavirus-2 (COVID-19) RNA (04/17/2020 12:00 AM BURNT LIME DRAWER) [facility] Method Time Signature EXT Undetected Inconclus [facility] SARS-CoV-2 sylvia, LABORATORIES - RNA Indetermi [facility] Invalid, Negative, Not Detected, Undetecte d, Other (specify in comment) Specimen (Source) Anatomical Location Collection Method / Collectio n Time Received Time / Laterality Volume Swab 04/17/2020 Bethany Natarajan M.D. LAB MICROBIOLOGY - GENERAL O RDERABLES Performing Organization Address City/State/ZIP Code Phon e Number [facility] LABORATORIES - [address] [place], [place] [address] [facility] documented in this encounter Visit Diagnoses Not on filedocumented in this encounter
--- OUTSIDE RECORDS SUMMARY | 2021-11-04 14:35 | XMS_ITS | Encounter Summary ---
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; Radiation Oncology [place] Adhikari 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; in [place], [address] [place] [address] Malignant Neoplasm Of Lower Limb Basal C ell Carcinoma Right [place], [place] [address] [facility] [address] [place], [place] [phone] (Work) [phone] Social History Tobacco Use Types Packs/Day Years Used Date Smoking Tobacco: Every Day Sex Assigned at Date Recorded Not on file documented as of this encounter Last Filed Vital Signs Vital Sign Reading Time Taken Comments Blood Pressure 156/86 04/26/2020 2:31 PM SURVEY CHIEF Pulse 92 04/26/2020 2:31 PM SURVEY CHIEF Temperature 36.9 ??C (98.5 ??F) 04/26/2020 2:31 PM SURVEY CHIEF Respiratory Rate - - Oxygen Saturation - - Inhaled Oxygen Concentration - - Weight 95.5 kg (210 lb 8.6 oz) 04/26/2020 2:31 PM SURVEY CHIEF Height - - Body Mass Index - [...] 700 1400 3500 04/24/2020 04/25/2020 1 F1_RTInguinal 065 694 1276 04/24/2020 04/25/2020 1 F1_LT Leg 032 574 8945 04/24/2020 04/25/2020 1 Course Summary 04/24/2020 04/25/2020 [...] by: Deedee Fry R.N. 04/26/2020 2:54 PM SURVEY CHIEF ATTESTATION FOR MANAGEMENT VISIT I saw and evaluated the patient and participated in the gregory portions of the service as noted above. I reviewed the documentation of Ms. Deedee Fry RN and agree with the findings and plan. The patient appears well on exam. We will continue with radiation as planned and monitor weekly. Bethany Natarajan M.D., 04/26/2020 EY CHIEF documented in this encounter Plan of Treatment [...]
--- OUTSIDE RECORDS SUMMARY | 2021-11-04 14:35 | XMS_ITS | Encounter Summary ---
:1940 Author Organization [facility] Address [address] [place] [address] Care Team Providers Name Role Phone Unavailable [...] 12:25 Result s for this EXAM PM SECTION GANG procedure are i n the results section. documented in this encounter Results DERMATOLOGY IMAGE EXAM (02/12/2017 12:25 PM SECTION GANG) Specimen (Source) Anatomical Collection Method Collection Time Re ceived Time Location / / Volume Laterality 02/12/2017 12:00 PM SECTION GANG Narrative IIMS - 02/12/2017 2:50 PM SECTION GANG This order has been created and auto-finalized [...]
--- OUTSIDE RECORDS SUMMARY | 2021-11-04 14:35 | XMS_ITS | Encounter Summary ---
:1940 Author Organization [facility] Address [address] [place] [address] Care Team Providers Name Role Phone Unavailable Primary Care Provider Unavailable Reason for Visit Appointment Request (Routine) - Closed Specialty Diagnoses / Procedures Referred By Contact Refer red To Contact Radiation Oncology Diagnoses Malignant Neoplasm Of Skin Basal Cell Carcinoma Malignant Neoplasm Of Skin Squamous Cell Carcinoma Annita Jay M.D. 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); Radiation Oncology [place] Adhikari Malignant Neoplasm Of Lower Limb Basal C ell Carcinoma Right; in [place], [facility] [address] [facility] 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 [place], [place] [address] [facility] [address] [place], [place] [phone] (Work) [phone] Social History Tobacco Use Types Packs/Day Years Used Date Smoking Tobacco: Every Day Sex Assigned at Date Recorded Not on file documented as of this encounter Last Filed Vital Signs Vital Sign Reading Time Taken Comments Blood Pressure 124/76 04/16/2020 12:50 PM FIELD UNDERWRITER Pulse 93 04/16/2020 12:50 PM FIELD UNDERWRITER Temperature 37.2 ??C (99 ??F) 04/16/2020 12:50 PM FIELD UNDERWRITER Respiratory Rate - - Oxygen Saturation - - Inhaled Oxygen Concentration - - Weight 95.5 kg (210 lb 8.6 oz) 04/16/2020 12:50 PM FIELD UNDERWRITER Height - - Body Mass Index - [...] surgery, nose SOCIAL HISTORY He lives in [place], [place]. He lives at [place] in an apartment. He is single. 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 He is mobile with [...] Photos were taken and are available in [employer] after obtaining consent. He has a 1.5 [...] We discussed the acute as well as keno terminal operator risks, including, but not limited to [...] by: Bethany Natarajan M.D. 04/16/2020 4:52 PM FIELD UNDERWRITER Radiation Oncology [facility] [address] [place], [place] [id number] D UNDERWRITER documented in this encounter Miscellaneous Notes Addendum Note - Mame Amezquita - 04/16/2020 1:00 PM FIELD UNDERWRITER Encounter addended by: Mame Amezquita on: 04/17/2020 8:34 AM Actions taken: Letter saved D UNDERWRITER documented in this encounter Plan of Treatment Not on filedocumented as of this encounter Visit Diagnoses Diagnosis Malignant Neoplasm Of Lower Limb Basal C ell Carcinoma Left - Primary Malignant Neoplasm Of Lower Limb Basal C ell Carcinoma Right 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
--- OUTSIDE RECORDS SUMMARY | 2021-11-04 14:35 | XMS_ITS | Encounter Summary ---
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 [facility] Procedures Prior Auth Rad Tx CT IMRT COMPLEX [address] [place] [address] Referral ID Status Reason Start Date Expiration Date Visits Requ ested Visits Authorized [id number] Closed 04/16/2020 04/16/2021 15 15 Encounter Details Date Type Department Care Team Description 05/03/2020 Hospital Encounter Department of Radiation Shaneka Natarajan I., [place]cology [place] [address] [facility] [address] [place] [phone] Social History Tobacco Use Types Packs/Day Years [...]
--- OUTSIDE RECORDS SUMMARY | 2021-11-04 14:35 | XMS_ITS | Encounter Summary ---
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 [facility] Procedures Prior Auth Rad Tx [place] IMRT COMPLEX [address] [place] [address] Referral ID Status Reason Start Date Expiration Date Visits Requ ested Visits Authorized [id number] Closed 04/16/2020 04/16/2021 15 15 Encounter Details Date Type Department Care Team Description 04/30/2020 Hospital Encounter Department of Radiation Shaneka Natarajan I., Oncology in [place], [place] [address] [facility] [address] [place] [phone] Social History Tobacco Use Types Packs/Day Years [...]
--- OUTSIDE RECORDS SUMMARY | 2021-11-04 14:35 | XMS_ITS | Encounter Summary ---
:1940 Author Organization [facility] Address [address] [place] [address] Care Team Providers Name Role Phone Unavailable Primary Care Provider Unavailable Reason for Referral Specialty Diagnoses / Procedures Referred By Contact Refer red To Contact Bethany Natarajan M.D. 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 [facility] Procedures Initial Rad Onc Treatment Planning CT Simulation [address] [place] [address] [place] [address] Referral ID Status Reason Start Date Expiration Date Visits Requ ested Visits Authorized [id number] Closed 04/10/2020 04/10/2021 1 1 STOCK FEEDER Encounter Details Date Type Department Care Team Description 04/10/2020 Orders Only Department of Bethany Natarajan Malignant N eoplasm Of Lower Limb Basal Cell Carcinoma Left (Primary Dx); Radiation Oncology in [place] Adhikari 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; [place] [facility] a [address] [facility] Malignant Neoplasm Of Lower Limb Basal C ell Carcinoma Right [address] [place] [phone] Social History Tobacco Use Types Packs/Day Years [...] Treatment Planning CT Simulation (04/16/2020 2:00 PM LIVESTOCK FEEDER) Specimen (Source) Anatomical Location Collection Method / Collectio n Time Received Time / Laterality Volume Narrative LAYO METZ - 04/16/2020 2:00 PM LIVESTOCK FEEDER Coral Alonso RTT ? 04/16/2020 ??4:02 PM Initial Rad Onc Treatment Planning CT Si mulation Date/Time: 04/16/2020 3:57 PM Performed by: Bethany Natarajan M.D. Authorized by: Bethany Natarajan M.D. Bethany Natarajan M.D. RADIATION ONCOLOGY ORDERABLE S Performing Organization Address City/State/ZIP Code Phon e Number KANAB LASHAY VASQUES LASHAY documented in this encounter [...]
--- OUTSIDE RECORDS SUMMARY | 2021-11-04 14:35 | XMS_ITS | Encounter Summary ---
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 [facility] Procedures Prior Auth Rad Tx [place] IMRT COMPLEX [address] [place] [address] Referral ID Status Reason Start Date Expiration Date Visits Requ ested Visits Authorized [id number] Closed 04/16/2020 04/16/2021 15 15 Encounter Details Date Type Department Care Team Description 04/25/2020 Hospital Encounter Department of Radiation Shaneka Natarajan I., Oncology in [place], [place] [address] [facility] [address] [place] [phone] Social History Tobacco Use Types Packs/Day Years [...]
--- OUTSIDE RECORDS SUMMARY | 2021-11-04 14:35 | XMS_ITS | Encounter Summary ---
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 [facility] [place] 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 [address] [place], [place] [phone] (Work) [phone] Social History Tobacco Use Types Packs/Day Years [...]
--- OUTSIDE RECORDS SUMMARY | 2021-11-04 14:35 | XMS_ITS | Encounter Summary ---
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 [facility] [place] [facility] Procedures Management Visit [address] [place], [place] [address] Referral ID Status Reason Start Date Expiration Date Visits V isits Requested Authorized [id number] Canceled 04/10/2020 04/10/2021 5 5 Encounter Details Date Type Department Care Team Description 05/01/2020 Hospital Encounter Department of Bethany Natarajan 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; in [place], [facility] Malignant Neoplasm Of Lower Limb Basal C ell Carcinoma Right [place], [place] [address] [facility] [address] [place], [place] [phone] (Work) [phone] Social History Tobacco Use Types Packs/Day Years Used Date Smoking Tobacco: Every Day Sex Assigned at Date Recorded Not on file documented as of this encounter Last Filed Vital Signs Vital Sign Reading Time Taken Comments Blood Pressure 148/82 05/01/2020 1:55 PM PHYSICS PROFESSOR Pulse 86 05/01/2020 1:55 PM PHYSICS PROFESSOR Temperature 36.3 ??C (97.3 ??F) 05/01/2020 1:55 PM PHYSICS PROFESSOR Respiratory Rate - - Oxygen Saturation - [...] Quynh Moreno P.A.-C. M.SJhon 05/01/2020 2:25 PM PHYSICS PROFESSOR ICS PROFESSOR Associated attestation - Bethany Natarajan M.D. - 05/01/2020 4:43 PM PHYSICS PROFESSOR I saw and evaluated the patient and [...]
--- OUTSIDE RECORDS SUMMARY | 2021-11-04 14:35 | XMS_ITS | Encounter Summary ---
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 [facility] Procedures Prior Auth Rad Tx [place] IMRT COMPLEX [address] [place], [place] [address] Referral ID Status Reason Start Date Expiration Date Visits Requ ested Visits Authorized [id number] Closed 04/16/2020 04/16/2021 15 15 K TRAILER FINAL INSPECTOR Encounter Details Date Type Department Care Team Description 04/16/2020 Orders Only Department of Bethany Natarajan N eoplasm Of Radiation Oncology in [place] Adhikari Lower Limb Squamous [place] [address] [facility] Cell Carcinoma Left [address] [place], [place] (Primary Dx) [place] [phone] Social History Tobacco Use Types Packs/Day Years [...]
--- OUTSIDE RECORDS SUMMARY | 2021-11-04 14:35 | XMS_ITS | Encounter Summary ---
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 [facility] Procedures Prior Auth Rad Tx [place] IMRT COMPLEX [address] [place] [address] Referral ID Status Reason Start Date Expiration Date Visits Requ ested Visits Authorized [id number] Closed 04/16/2020 04/16/2021 15 15 Encounter Details Date Type Department Care Team Description 05/07/2020 Hospital Encounter Department of Radiation Shaneka Natarajan I., [place] [address] [facility] [address] [place] [phone] Social History Tobacco Use Types Packs/Day Years [...]
--- OUTSIDE RECORDS SUMMARY | 2021-11-04 14:35 | XMS_ITS | Encounter Summary ---
:1940 Author Organization [facility] Address [address] [place] [address] Care Team Providers Name Role Phone Unavailable [...] 12:35 Result s for this EXAM PM SPECIAL EVENTS COORDINATOR procedure are i n the results section. documented in this encounter Results DERMATOLOGY IMAGE EXAM (02/12/2017 12:35 PM SPECIAL EVENTS COORDINATOR) Specimen (Source) Anatomical Collection Method Collection Time Re ceived Time Location / / Volume Laterality 02/12/2017 12:00 PM SPECIAL EVENTS COORDINATOR Narrative IIMS - 02/12/2017 2:50 PM SPECIAL EVENTS COORDINATOR This order has been created and [...]
--- OUTSIDE RECORDS SUMMARY | 2021-11-04 14:35 | XMS_ITS | Encounter Summary ---
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 [facility] Procedures Prior Auth Rad Tx [place] IMRT COMPLEX [address] [place] [address] Referral ID Status Reason Start Date Expiration Date Visits Requ ested Visits Authorized [id number] Closed 04/16/2020 04/16/2021 15 15 Encounter Details Date Type Department Care Team Description 05/01/2020 Hospital Encounter Department of Radiation Shaneka Natarajan I., Oncology in [place], [place] [address] [facility] [address] [place] [phone] Social History Tobacco Use Types Packs/Day Years [...]
--- OUTSIDE RECORDS SUMMARY | 2021-11-04 14:35 | XMS_ITS | Encounter Summary ---
:1940 Author Organization [facility] Address [address] [place] [address] Care Team Providers Name Role Phone Unavailable [...] 04/16/2020 1:25 PM Re sults for this GLACING MACHINE TENDER procedure are i n the results section. documented in this encounter Results Pelvis-Oncology Image Exam (04/16/2020 1:25 PM GLACING MACHINE TENDER) Specimen (Source) Anatomical Collection Method Collection Time Re ceived Time Location / / Volume Laterality 04/16/2020 1:25 PM GLACING MACHINE TENDER Narrative IIMS - 04/16/2020 1:28 PM GLACING MACHINE TENDER This order has been created and auto-finalized [...]
--- OUTSIDE RECORDS SUMMARY | 2021-11-04 14:35 | XMS_ITS | Encounter Summary ---
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 [facility] Procedures Prior Auth Rad Tx [place] IMRT COMPLEX [address] [place] [address] Referral ID Status Reason Start Date Expiration Date Visits Requ ested Visits Authorized [id number] Closed 04/16/2020 04/16/2021 15 15 Encounter Details Date Type Department Care Team Description 04/26/2020 Hospital Encounter Department of Radiation Shaneka Natarajan I., Oncology in [place], [place] [address] [facility] [address] [place] [phone] Social History Tobacco Use Types Packs/Day Years [...]
--- OUTSIDE RECORDS SUMMARY | 2021-11-04 14:35 | XMS_ITS | Encounter Summary ---
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 [facility] Procedures Prior Auth Rad Tx [place] IMRT COMPLEX [address] [place] [address] Referral ID Status Reason Start Date Expiration Date Visits Requ ested Visits Authorized [id number] Closed 04/16/2020 04/16/2021 15 15 Encounter Details Date Type Department Care Team Description 04/24/2020 Hospital Encounter Department of Radiation Shaneka Natarajan I., Oncology in [place], [place] [address] [facility] [address] [place] [phone] Social History Tobacco Use Types Packs/Day Years [...]
--- OUTSIDE RECORDS SUMMARY | 2021-11-04 14:35 | XMS_ITS | Encounter Summary ---
:1940 Author Organization [facility] Address [address] [place] [address] Care Team Providers Name Role Phone Unavailable [...] 1:28 PM Re sults for this CLINICAL LABORATORY SCIENTIST procedure are i n the results section. documented in this encounter Results Leg-Oncology Image Exam (04/16/2020 1:28 PM CLINICAL LABORATORY SCIENTIST) Specimen (Source) Anatomical Collection Method Collection Time Re ceived Time Location / / Volume Laterality 04/16/2020 1:25 PM CLINICAL LABORATORY SCIENTIST Narrative IIMS - 04/16/2020 1:28 PM CLINICAL LABORATORY SCIENTIST This order has been created and auto-finalized [...]
--- OUTSIDE RECORDS SUMMARY | 2021-11-04 14:35 | XMS_ITS | Encounter Summary ---
:1940 Author Organization [facility] Address [address] [place] [address] Care Team Providers Name Role Phone Unavailable [...] Onc Treatment Planning CT Simulation [address] [place], [place] [address] Referral ID Status Reason Start Date Expiration Date Visits Requ ested Visits Authorized [id number] Closed 04/10/2020 04/10/2021 1 1 UNITY AIDE Reason for Visit Radiation Therapy (Routine) - [...] Onc Treatment Planning CT Simulation [address] [place], [place] [address] Referral ID Status Reason Start Date Expiration Date Visits Requ ested Visits Authorized [id number] Closed 04/10/2020 04/10/2021 1 1 Encounter Details Date Type Department Care Team Description 04/16/2020 Hospital Encounter Department of Bethany Natarajan 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 CT images were transferred to the QUIQ treatment planning system, after a reference isocenter was determined and marked. Segmentation and treatment planning will take place priorto treatment delivery. Patient set up and imaging was appropriate and completed without incident. City Secretary use:No UNITY AIDE documented in this encounter Plan of Treatment Not on filedocumented as of this encounter Procedures Procedure Name Priority Date/Time Associated Comments Diagnosis INITIAL RAD ONC Routine 04/16/2020 2:00 PM Malignant Neoplasm Results for this TREATMENT PLANNING COMMUNITY AIDE Of Lower Limb Basal pr ocedure are in CT SIMULATION Cell Carcinoma L eft the results Malignant Neoplasm section. 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 04/16/2020 ??4:02 PM Initial Rad Onc Treatment Planning CT Si mulation Date/Time: 04/16/2020 3:57 PM Performed by: Bethany Natarajan M.D. Authorized by: Bethany Natarajan M.D. Bethany Natarajan M.D. RADIATION ONCOLOGY ORDERABLE S Performing Organization Address City/State/ZIP Code Phon e Number [place] na documented in this encounter Visit Diagnoses Diagnosis 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
--- OUTSIDE RECORDS SUMMARY | 2021-11-04 14:35 | XMS_ITS | Encounter Summary ---
:1940 Author Organization [facility] Address [address] [place] [address] Care Team Providers Name Role Phone Unavailable [...] 12:30 Result s for this EXAM PM ELECTRONIC NEWS GATHERING EDITOR procedure are i n the results section. documented in this encounter Results DERMATOLOGY IMAGE EXAM (02/12/2017 12:30 PM ELECTRONIC NEWS GATHERING EDITOR) Specimen (Source) Anatomical Collection Method Collection Time Re ceived Time Location / / Volume Laterality 02/12/2017 12:00 PM ELECTRONIC NEWS GATHERING EDITOR Narrative IIMS - 02/12/2017 2:50 PM ELECTRONIC NEWS GATHERING EDITOR This order has been created and auto-finalized [...]
--- OUTSIDE RECORDS SUMMARY | 2021-11-04 14:35 | XMS_ITS | Encounter Summary ---
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 [facility] Procedures Prior Auth Rad Tx CT IMRT COMPLEX [address] [place] [address] Referral ID Status Reason Start Date Expiration Date Visits Requ ested Visits Authorized [id number] Closed 04/16/2020 04/16/2021 15 15 Encounter Details Date Type Department Care Team Description 04/29/2020 Hospital Encounter Department of Radiation Shaneka Natarajan I., Oncology in [place], [place] [address] [facility] [address] [place] [phone] Social History Tobacco Use Types Packs/Day Years [...]
--- OUTSIDE RECORDS SUMMARY | 2021-11-04 14:35 | XMS_ITS | Encounter Summary ---
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 [facility] Procedures Prior Auth Rad Tx [place] IMRT COMPLEX [address] [place] [address] Referral ID Status Reason Start Date Expiration Date Visits Requ ested Visits Authorized [id number] Closed 04/16/2020 04/16/2021 15 Encounter Details Date Type Department Care Team Description 05/06/2020 Hospital Encounter Department of Radiation Shaneka Natarajan I., [place]cology [place] [address] [facility] [address] [place] [phone] Social History Tobacco Use Types Packs/Day Years [...]
--- OUTSIDE RECORDS SUMMARY | 2021-11-04 14:36 | XMS_ITS | Encounter Summary ---
:1940 Author Organization [facility] Address [address] [place] [address] Care Team Providers Name Role Phone Unavailable [...] 12:00 Result s for this EXAM PM MILL HAND procedure are i n the results section. documented in this encounter Results DERMATOLOGY IMAGE EXAM (01/19/2017 12:00 PM MILL HAND) Specimen (Source) Anatomical Location Collection Method / Collectio n Time Received Time / Laterality Volume Narrative IIMS - 01/19/2017 4:19 PM MILL HAND This order has been created and auto-finalized [...]
--- OUTSIDE RECORDS SUMMARY | 2021-11-04 14:36 | XMS_ITS | Encounter Summary ---
:1940 Author Organization [facility] Address [address] [place] [address] Care Team Providers Name Role Phone Unavailable [...] 12:10 Result s for this EXAM PM AUTOMOBILE CARPETS MOLDER procedure are i n the results section. documented in this encounter Results DERMATOLOGY IMAGE EXAM (02/12/2017 12:10 PM AUTOMOBILE CARPETS MOLDER) Specimen (Source) Anatomical Collection Method Collection Time Re ceived Time Location / / Volume Laterality 02/12/2017 12:00 PM AUTOMOBILE CARPETS MOLDER Narrative IIMS - 02/12/2017 2:49 PM AUTOMOBILE CARPETS MOLDER This order has been created and auto-finalized [...]
--- OUTSIDE RECORDS SUMMARY | 2021-11-04 14:36 | XMS_ITS | Encounter Summary ---
:1940 Author Organization [facility] Address [address] [place] [address] Care Team Providers Name Role Phone Unavailable [...] 12:00 Result s for this EXAM PM CONTROL EQUIPMENT ELECTRICIAN procedure are i n the results section. documented in this encounter Results DERMATOLOGY IMAGE EXAM (02/12/2017 12:00 PM CONTROL EQUIPMENT ELECTRICIAN) Specimen (Source) Anatomical Collection Method Collection Time Re ceived Time Location / / Volume Laterality 02/12/2017 12:00 PM CONTROL EQUIPMENT ELECTRICIAN Narrative IIMS - 02/12/2017 2:49 PM CONTROL EQUIPMENT ELECTRICIAN This order has been created and auto-finalized [...]
--- OUTSIDE RECORDS SUMMARY | 2021-11-04 14:36 | XMS_ITS | Encounter Summary ---
:1940 Author Organization [facility] Address [address] [place] [address] Care Team Providers Name Role Phone Unavailable [...] 12:05 Result s for this EXAM PM ASSISTANT PLANT CONTROL OPERATOR procedure are i n the results section. documented in this encounter Results DERMATOLOGY IMAGE EXAM (02/12/2017 12:05 PM ASSISTANT PLANT CONTROL OPERATOR) Specimen (Source) Anatomical Collection Method Collection Time Re ceived Time Location / / Volume Laterality 02/12/2017 12:00 PM ASSISTANT PLANT CONTROL OPERATOR Narrative IIMS - 02/12/2017 2:49 PM ASSISTANT PLANT CONTROL OPERATOR This order has been created and [...]
--- OUTSIDE RECORDS SUMMARY | 2021-11-04 14:36 | XMS_ITS | Encounter Summary ---
:1940 Author Organization [facility] Address [address] [place] [address] Care Team Providers Name Role Phone Unavailable [...] 12:15 Result s for this EXAM PM SENIOR PRODUCER procedure are i n the results section. documented in this encounter Results DERMATOLOGY IMAGE EXAM (02/12/2017 12:15 PM SENIOR PRODUCER) Specimen (Source) Anatomical Collection Method Collection Time Re ceived Time Location / / Volume Laterality 02/12/2017 12:00 PM SENIOR PRODUCER Narrative IIMS - 02/12/2017 2:49 PM SENIOR PRODUCER This order has been created and auto-finalized [...]
[2021-11-04 18:21] LABS: PSA Screen* 3.84 ng/mL (0.10-4.00)
== END 2021-11-04 14:26 | disposition home or self-care (01) ==
LOC: NFLDREF 14:25
PROVIDERS: PCP Family Medicine; Visit Provider Family Medicine
DX: N41.9 Inflammatory disease of prostate, unspecified (principal); R30.0 Dysuria; R30.9 Painful micturition, unspecified
CPT/HCPCS: 84153

== ENCOUNTER 2021-11-11 12:50 | Outpatient (CLI) | payer OTHER, SELFPAY ==
--- OUTSIDE RECORDS SUMMARY | 2021-11-11 12:52 | XMS_ITS | Encounter Summary ---
:1940 Author Organization [facility] Address [address] [place] [address] Care Team Providers Name Role Phone Unavailable Primary Care Provider Unavailable Encounter Details Date Type Department Care Team Description 11/01/2020 Orders Only [facility] Sa greyson Moore M.D. [address] [place], [place] [phone] (Wo rk) Social History Tobacco Use Types Packs/Day Years Used Date Smoking Tobacco: Every Day Sex Assigned at Date Recorded Not on file documented as of this encounter Plan of Treatment Not on filedocumented as of this encounter Visit Diagnoses Not on filedocumented in this encounter
--- OUTSIDE RECORDS SUMMARY | 2021-11-11 12:52 | XMS_ITS | Clinical Summary ---
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 regimen: 0 04/16/2014 Active mg/mL inj LOADING DOSE: 0.2 mg for 1 dose NUMERICAL CONTROL OPERATOR BOLUS DOSE: 0.2-0.3 mg LOCKOUT INTERVAL: 10 [...] elationship: Life Partner Secondary Health Care Agent: Morrisky p: Phone: Conservator: Relationship: Phone: Guardian: Relationship: [...] 3-15-10 05/06/2009 Cardiomyopathy , ischemic; old inf [place] 05/02/2009 Overview: Per preop, EF of 39% [...] Comments Blood Pressure 123/73 04/16/2014 2:19 PM BILLING AUDITOR Pulse 115 04/16/2014 2:19 PM BILLING AUDITOR Temperature 38.3 ??C (100.9 ??F) 04/16/2014 3:30 PM BILLING AUDITOR Respiratory Rate 20 04/16/2014 2:19 PM BILLING AUDITOR Oxygen Saturation 94% 04/16/2014 2:19 PM BILLING AUDITOR Inhaled Oxygen Concentration - - Weight 86.1 kg (189 lb 13.1 oz) 04/16/2014 5:00 AM BILLING AUDITOR Height 180.3 cm (5' 10.98) 04/02/2014 12:00 AM BILLING AUDITOR Body Mass Index 26.49 04/02/2014 12:00 AM BILLING AUDITOR Plan of Treatment Health Maintenance Due Date [...] 65+ 10/23/2021 Medical Devices Implanted Type Area Supervisor Slitting And Shipping Device Shelf Model / Identifier Expiration Serial / Date Lot Screw Self Drilling 3.5x15mm - [id number] N/A: Spine SOFAMOR [id number] [id number] / Implanted: Qty: 4 on 06/24/2010 at [facility] / Humeral Tray Left: [id number] / Implanted: Qty: 1 on 03/17/2012 at [facility] Shoulder / [id number] Description: HUMERAL TRAY Explanted Type Area Supervisor Slitting And Shipping Device Shelf Model / Identifier Expiration Serial / Date Lot Patch Vasc 0.8x8cm Xenosure Biological Pericardial - [id number] Right: Lemaitre 0.8P8# / Explanted: Qty: 1 on 03/09/2014 at [facility] [employer] / [id number] Results Not on filefrom Last 3 Months Insurance Payer Benefit Plan / Subscriber ID Effective Dates Phone Addre ss Type Group [facility] [id number] 2015-Present [address] [place] [address] Guarantor Name Account Type Relation to Date of Phone Bill ing Patient Address Tl Lugo Personal/Family Self 1940 [phone] (Home) [place] [address] Advance Directives Documents on File Type Date 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
--- OUTSIDE RECORDS SUMMARY | 2021-11-11 12:52 | XMS_ITS | Encounter Summary ---
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 [facility] Procedures Prior Auth Rad Tx [place] IMRT COMPLEX [address] [place] [address] Referral ID Status Reason Start Date Expiration Date Visits Requ ested Visits Authorized [id number] Closed 04/16/2020 04/16/2021 15 15 Encounter Details Date Type Department Care Team Description 05/09/2020 Hospital Encounter Department of Radiation Shaneka Natarajan I., [place] [address] [facility] [address] [place] [phone] Social History Tobacco Use Types Packs/Day Years [...]
--- OUTSIDE RECORDS SUMMARY | 2021-11-11 12:52 | XMS_ITS | Clinical Summary ---
:1940 Author Organization [facility] Address [address] [place] [address] Care Team Providers Name Role Phone Unavailable Primary Care Provider Unavailable Source Comments Patient records contain information from all sites at [facility]. For routine questions regarding patient records, call [phone] during business hours, M-F 8:00 AM - 5:00 PM Central Time. Record requests for emergency care only can be directed to [phone] at any time.[facility] Allergies Active Allergy Reactions Severity Noted [...] Phone Addre ss Type Group [facility] [id number] 2021-Present [phone] [address] [place] [address]
--- OUTSIDE RECORDS SUMMARY | 2021-11-11 12:52 | XMS_ITS | Encounter Summary ---
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 [facility] Procedures Prior Auth Rad Tx [place] IMRT COMPLEX [address] [place] [address] Referral ID Status Reason Start Date Expiration Date Visits Requ ested Visits Authorized [id number] Closed 04/16/2020 04/16/2021 15 Encounter Details Date Type Department Care Team Description 05/06/2020 Hospital Encounter Department of Radiation Shaneka Natarajan I., [place]cology [place] [address] [facility] [address] [place] [phone] Social History Tobacco Use Types Packs/Day Years [...]
--- OUTSIDE RECORDS SUMMARY | 2021-11-11 12:52 | XMS_ITS | Encounter Summary ---
:1940 Author Organization [facility] Address [address] [place] [address] Care Team Providers Name Role Phone Unavailable Primary Care Provider Unavailable Reason for Visit Reason Comments Med Refill Encounter Details Date Type Department Care Team Description 08/08/2020 Clinical Communication Department of Travis Hall Refjoanne Radiation Oncology [place] [facility] [place] [address] [place] [phone] Social History Tobacco Use Types Packs/Day Years Used Date Smoking Tobacco: Every Day Sex Assigned at Date Recorded Not on file documented as of this encounter Miscellaneous Notes Telephone Encounter - Deedee Fry R.N. - 08/08/2020 1:06 PM CDT Information Discussed I called and left voicemail on patient's phone requesting call back. Patient reported that he was taking Hondo twice a day at his last in office visit with us. PLAN Dr. Natarajan and I will send through refill on Hondo to get him through until August 16, 2020, when he is scheduled for follow up with Dr. Natarajan in [place]. Disposition/Recommendation: I requested call back, refill will [...] can be done or not Phone number: [phone] Is it okay to leave a voicemail on answering machine with test results? Yes Pharmacy (if medication related): [facility] [address] [place] [phone] [address] documented in this encounter Plan of Treatment Not on filedocumented as of this encounter Visit Diagnoses Not on filedocumented in this encounter
--- OUTSIDE RECORDS SUMMARY | 2021-11-11 12:52 | XMS_ITS ---
:1940 Author Organization [facility] Address [address] [place] [address] Care Team Providers Name Role Phone Unavailable [...] Elapsed Days Session Dose Total Dos e [id number] 05/15/2020 21 300 cGy 4,500 cGy [id number] 05/06/2020 12 425 cGy 3,825 cGy [id number] 04/26/2020 2 700 cGy 2,100 cGy
--- OUTSIDE RECORDS SUMMARY | 2021-11-11 12:52 | XMS_ITS | Encounter Summary ---
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 [facility] Procedures Prior Auth Rad Tx [place] IMRT COMPLEX [address] [place] [address] Referral ID Status Reason Start Date Expiration Date Visits Requ ested Visits Authorized [id number] Closed 04/16/2020 04/16/2021 15 15 Encounter Details Date Type Department Care Team Description 05/02/2020 Hospital Encounter Department of Radiation Shaneka Natarajan I., Oncology [place] [address] [facility] [address] [place] [phone] Social History Tobacco Use Types Packs/Day Years [...]
--- OUTSIDE RECORDS SUMMARY | 2021-11-11 12:52 | XMS_ITS | Encounter Summary ---
:1940 Author Organization [facility] Address [address] [place] [address] Care Team Providers Name Role Phone Unavailable Primary Care Provider Unavailable Encounter Details Date Type Department Care Team Description 09/27/2020 Clinical Communication Department of Bethany Natarajan Radiation Oncology in [place] Adhikari [facility] [address] [facility] [address] [place] [address] [phone] Social History Tobacco Use Types Packs/Day Years [...]
--- OUTSIDE RECORDS SUMMARY | 2021-11-11 12:52 | XMS_ITS | Encounter Summary ---
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
--- OUTSIDE RECORDS SUMMARY | 2021-11-11 12:52 | XMS_ITS | Encounter Summary ---
:1940 Author Organization [facility] Address [address] [place] [address] Care Team Providers Name Role Phone Unavailable Primary Care Provider Unavailable Reason for Visit Reason Comments Med Refill Encounter Details Date Type Department Care Team Description 07/09/2020 Clinical Communication Department of Bethany Natarajan ed Refill Radiation Oncology in [place] Adhikari [facility] [address] [facility] [address] [place] [phone] Social History Tobacco Use Types Packs/Day Years [...] would like a refill today. Phone number: [phone] Is it okay to leave a voicemail on answering machine with test results? Yes Pharmacy (if medication related): [facility] [address] [place] [address] [facility] [address] [facility] [address] [address] documented in this encounter Plan of Treatment Not on filedocumented as of this encounter Visit Diagnoses Not on filedocumented in this encounter
--- OUTSIDE RECORDS SUMMARY | 2021-11-11 12:52 | XMS_ITS | Encounter Summary ---
:1940 Author Organization [facility] Address [address] [place] [address] Care Team Providers Name Role Phone Unavailable Primary Care Provider Unavailable Encounter Details Date Type Department Care Team Description 07/10/2020 Clinical Communication Department of Bethany Natarajan Radiation Oncology in [place] Adhikari [facility] [address] [facility] [address] [place] [phone] Social History Tobacco Use Types Packs/Day Years [...] informed him that a prescription for the [place] has been sent to the [facility] in [place]. Phone number: [phone] Is it okay to leave a voicemail on answering machine with test results? Yes Pharmacy (if medication related): N/A Elif Parkinson documented in this encounter Plan of Treatment Not on filedocumented as of this encounter Visit Diagnoses Not on filedocumented in this encounter
--- OUTSIDE RECORDS SUMMARY | 2021-11-11 12:52 | XMS_ITS | Encounter Summary ---
:1940 Author Organization [facility] Address [address] [place] [address] Care Team Providers Name Role Phone Unavailable Primary Care Provider Unavailable Reason for Referral Outpatient (Routine) - Closed Specialty Diagnoses / Procedures Referred By Contact Refer red To Contact Radiation Oncology Bethany Natarajan [facility] Jason Sun [address] [place] [address] Referral ID Status Reason Start Date Expiration Date Visits Requ ested Visits Authorized [id number] Closed 05/15/2020 05/15/2021 1 1 Scheduling Instructions Deedee first to assess skin Radiation Therapy (Routine) - Canceled Specialty Diagnoses / Procedures Referred By Contact Refer red To Contact Diagnoses 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 Annita aJy. The patient reported being previously treated for [...] 2020 to complete skin assessment. Radiation Oncology [place] can be contacted at anytime for any questions or concerns. Patient stated a full understanding to the plan of care discussed today. Toxicities reviewed with Dr. Natarajan today. Signed by: Deedee Fry R.N. 05/15/2020 2:59 PM CDT [facility] [address] [place] [address] documented in this encounter Plan of Treatment [...]
--- OUTSIDE RECORDS SUMMARY | 2021-11-11 12:52 | XMS_ITS | Encounter Summary ---
:1940 Author Organization [facility] Address [address] [place] [address] Care Team Providers Name Role Phone Unavailable Primary Care Provider Unavailable Reason for Referral Outpatient (Routine) - Closed Specialty Diagnoses / Procedures Referred By Contact Refer red To Contact Diagnoses Swelling Testicle Garrison Casas M.D. 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 [facility] Procedures Management Visit [address] [place], [place] [phone] Referral ID Status Reason Start Date Expiration Date Visits V isits Requested Authorized [id number] Canceled 04/10/2020 04/10/2021 5 5 Reason for [...] [facility] Region Procedures Management Visit [address] [place] [address] Referral ID Status Reason Start Date Expiration Date Visits V isits Requested Authorized [id number] Canceled 04/10/2020 04/10/2021 5 5 Encounter Details Date Type Department Care Team Description 05/08/2020 Hospital Encounter Department of Garrison Casas ing Testicle (Primary Dx); Radiation Oncology [place] Cabello Malignant Neoplasm Of Lower Limb Basal C ell Carcinoma Left; in [place], [facility] [address] [facility] 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; [place], [place] 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 The patient will continue with treatment as planned. Signed by: Garrison Casas M.D. 05/08/2020 2:54 PM CDT [facility] [address] [place] [address] documented in this encounter Plan of Treatment [...]
--- OUTSIDE RECORDS SUMMARY | 2021-11-11 12:52 | XMS_ITS | Encounter Summary ---
:1940 Author Organization [facility] Address [address] [place] [address] Care Team Providers Name Role Phone Unavailable Primary Care Provider Unavailable Reason for Referral Specialty Diagnoses / Procedures Referred By Contact Refer red To Contact Bethany Natarajan M.D. [facility] Region [address] [place] [phone] Referral ID Status Reason Start Date Expiration Date Visits Requ ested Visits Authorized OR [place] Encounter Details Date Type Department Care Team Description 04/30/2020 - Hospital Encounter Department of Aramis Natarajan M.D. [address] [place] [phone] Malignant Neoplasm Of Lower Limb Basal C ell Carcinoma Left; 05/17/2020 Radiation Oncology Deedee Fry R.N. [address] [place] [phone] 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; in [place], Malignant Henry plasm Of Lower Limb Basal Cell Carcinoma Right [place] [address] [place] [phone] Social History Tobacco Use Types Packs/Day Years [...]
--- OUTSIDE RECORDS SUMMARY | 2021-11-11 12:52 | XMS_ITS | Encounter Summary ---
:1940 Author Organization [facility] Address [address] [place] [address] Care Team Providers Name Role Phone Unavailable Primary Care Provider Unavailable Reason for Referral Outpatient (Routine) - Closed Specialty Diagnoses / Procedures Referred By Contact Refer red To Contact Radiation Oncology Bethany Natarajan [facility] Feli Gomez [place].D. [address] [place] [address] Referral ID Status Reason Start Date Expiration Date Visits Requ ested Visits Authorized [id number] Closed 05/28/2020 05/28/2021 1 1 Scheduling Instructions 2-3 weeks with [facility] and Deedee Outpatient (Routine) - Closed Specialty Diagnoses / Procedures Referred By Contact Refer red To Contact Radiation Oncology Bethany Natarajan [facility] Feli Gomez M.D. [address] [place] [address] Referral ID Status Reason Start Date Expiration Date Visits Requ ested Visits Authorized [id number] Closed 05/15/2020 05/15/2021 1 1 Scheduling Instructions Deedee first to assess skin Reason for Visit Outpatient (Routine) - Closed Specialty Diagnoses / Procedures Referred By Contact Refer red To Contact Radiation Oncology Bethany Natarajan [facility] Feli Gomez M.D. 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 [address] [place], [place] [phone] (Work) [phone] Social History Tobacco Use Types Packs/Day Years [...] Deedee Fry R.N. 05/28/2020 1:16 PM CDT [facility] [address] [place] [address] ATTESTATION FOR FOLLOW-UP VISIT I saw and [...]
--- OUTSIDE RECORDS SUMMARY | 2021-11-11 12:52 | XMS_ITS | Encounter Summary ---
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 [facility] Procedures Prior Auth Rad Tx [place] IMRT COMPLEX [address] [place] [address] Referral ID Status Reason Start Date Expiration Date Visits Requ ested Visits Authorized [id number] Closed 04/16/2020 04/16/2021 15 15 Encounter Details Date Type Department Care Team Description 05/08/2020 Hospital Encounter Department of Radiation Shaneka Natarajan I., Oncology [place] [address] [facility] [address] [place] [phone] Social History Tobacco Use Types Packs/Day Years [...]
--- OUTSIDE RECORDS SUMMARY | 2021-11-11 12:52 | XMS_ITS | Encounter Summary ---
:1940 Author Organization [facility] Address [address] [place] [address] Care Team Providers Name Role Phone Unavailable Primary Care Provider Unavailable Reason for Visit Reason Comments Follow-up Encounter Details Date Type Department Care Team Description 10/30/2020 Clinical Communication Department of Bethany Natarajanzuhair Radiation Oncology in [place] Adhikari [facility] a [address] [facility] [address] [place] [phone] Social History Tobacco Use Types Packs/Day Years [...] center to help with this. Phone number: [phone] Is it okay to leave a voicemail on answering machine with test results? No Pharmacy (if medication related): N/A Elif Parkinson documented in this encounter Plan of Treatment Not on filedocumented as of this encounter Visit Diagnoses Not on filedocumented in this encounter
--- OUTSIDE RECORDS SUMMARY | 2021-11-11 12:52 | XMS_ITS | Encounter Summary ---
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 [facility] Procedures Prior Auth Rad Tx [place] IMRT COMPLEX [address] [place] [address] Referral ID Status Reason Start Date Expiration Date Visits Requ ested Visits Authorized [id number] Closed 04/16/2020 04/16/2021 15 15 Encounter Details Date Type Department Care Team Description 05/07/2020 Hospital Encounter Department of Radiation Shaneka Natarajan I., Oncology [place] [address] [facility] [address] [place] [phone] Social History Tobacco Use Types Packs/Day Years [...]
--- OUTSIDE RECORDS SUMMARY | 2021-11-11 12:52 | XMS_ITS | Encounter Summary ---
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 [facility] Procedures Prior Auth Rad Tx [place] IMRT COMPLEX [address] [place] [address] Referral ID Status Reason Start Date Expiration Date Visits Requ ested Visits Authorized [id number] Closed 04/16/2020 04/16/2021 15 15 Encounter Details Date Type Department Care Team Description 05/03/2020 Hospital Encounter Department of Radiation Shaneka aNtarajan I., Oncology [place] [address] [facility] [address] [place] [phone] Social History Tobacco Use Types Packs/Day Years [...]
--- OUTSIDE RECORDS SUMMARY | 2021-11-11 12:52 | XMS_ITS | Encounter Summary ---
:1940 Author Organization [facility] Address [address] [place] [address] Care Team Providers Name Role Phone Unavailable Primary Care Provider Unavailable Reason for Referral Outpatient (Routine) - Closed Specialty Diagnoses / Procedures Referred By Contact Refer jose luis To Contact Radiation Oncology Bethany Natarajan [facility] Feli Gomez M.D. [address] [place] [address] Referral ID Status Reason Start Date Expiration Date Visits Requ ested Visits Authorized [id number] Closed 05/28/2020 05/28/2021 1 1 Scheduling Instructions 2-3 weeks with C[facility]Y and Deedee Reason for Visit Outpatient (Routine) - Closed Specialty Diagnoses / Procedures Referred By Contact Sofi amaya To Contact Radiation Oncology Bethany Natarajan [facility] Feli Gomez M.D. [address] [place] [phone] Referral ID Status Reason Start Date Expiration Date Visits Requ ested Visits Authorized [id number] Closed 05/28/2020 05/28/2021 1 1 Encounter Details Date Type Department Care Team Description 06/11/2020 Hospital Encounter Department of Bethany Natarajan (Primary Dx) Radiation Oncology [place] Adhikari in [place], [address] [place] [address] [address]21 [facility] [address] [place], [place] [phone] (Work) [phone] Social History Tobacco Use Types Packs/Day Years [...] a 8 out of 10.He takes 1 [place] in the morning and 1 at bedtime. [...] will send through prescription refill on his [place] to his preferred pharmacy today. Patient is to not exceed 3200 mg of Ibuprofen a day. We encouraged patient to trial warm compresses for acute right eye mattering. We will send through referral to [facility]. We will see Mr. Tl Lugo in a follow-up visit in late July. The patient was told to contact us sooner with questions or concerns. He verbally expressed his understanding of the plan. Signed by: Deedee Fry R.N. 06/11/2020 1:09 PM CDT [facility] [address] [place] [address] documented in this encounter Plan of Treatment Scheduled Referrals Name Type Priority Associated Order Schedule Diagnoses Radiation Oncology Outpatient Referral Routine On ce for 1 office visit Occurrences sta rting (clinic) 06/11/2020 unti l 06/11/2020 documented as of this encounter Visit Diagnoses Diagnosis Red Eye - Primary documented in this encounter
--- OUTSIDE RECORDS SUMMARY | 2021-11-11 12:52 | XMS_ITS | Encounter Summary ---
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 [facility] Procedures Prior Auth Rad Tx [place] IMRT COMPLEX [address] [place] [address] Referral ID Status Reason Start Date Expiration Date Visits Requ ested Visits Authorized [id number] Closed 04/16/2020 04/16/2021 15 15 Encounter Details Date Type Department Care Team Description 05/13/2020 Hospital Encounter Department of Radiation Shaneka Natarajan I., Oncology in [place] [address] [facility] [address] [place] [phone] Social History Tobacco Use Types Packs/Day Years [...]
--- OUTSIDE RECORDS SUMMARY | 2021-11-11 12:52 | XMS_ITS | Encounter Summary ---
:1940 Author Organization [facility] Address [address] [place] [address] Care Team Providers Name Role Phone Unavailable Primary Care Provider Unavailable Encounter Details Date Type Department Care Team Description 05/15/2020 Hospital Encounter Department of Radiation Shaneka Natarajan I., Oncology in [facility] [address] [facility] [address] [place] [phone] Social History Tobacco Use Types Packs/Day Years [...]
--- OUTSIDE RECORDS SUMMARY | 2021-11-11 12:52 | XMS_ITS | Encounter Summary ---
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 [facility] Procedures Prior Auth Rad Tx [place] IMRT COMPLEX [address] [place] [address] Referral ID Status Reason Start Date Expiration Date Visits Requ ested Visits Authorized [id number] Closed 04/16/2020 04/16/2021 15 15 Encounter Details Date Type Department Care Team Description 05/14/2020 Hospital Encounter Department of Radiation Shaneka Natarajan I., Oncology in [place] [address] [facility] [address] [place] [phone] Social History Tobacco Use Types Packs/Day Years [...]
--- OUTSIDE RECORDS SUMMARY | 2021-11-11 12:52 | XMS_ITS | Encounter Summary ---
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 [facility] [place] [facility] Procedures Management Visit [address] [place], [place] [address] Referral ID Status Reason Start Date Expiration Date Visits V isits Requested Authorized [id number] Canceled 04/10/2020 04/10/2021 5 5 Encounter Details Date Type Department Care Team Description 05/07/2020 Hospital Encounter Department of Garrison Casas Neoplasm Of Lower Limb Basal Cell Carcinoma Left; Radiation Oncology Corinne Cabello 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; in [place], [facility] Malignant Neoplasm Of Lower Limb Basal C ell Carcinoma Right [place], [place] [address] [facility] [address] [place], [place] [phone] (Work) [phone] Social History Tobacco Use Types Packs/Day Years [...] I provided patient with Moist Skin Reaction [id number] pamphlet yesterday. I encouraged him to [...] M.D. 05/07/2020 4:51 PM CDT [facility] [address] [place] [address] documented in this encounter Plan of Treatment [...]
--- OUTSIDE RECORDS SUMMARY | 2021-11-11 12:53 | XMS_ITS | Encounter Summary ---
:1940 Author Organization [facility] Address [address] [place] [address] Care Team Providers Name Role Phone Unavailable [...] 12:30 Result s for this EXAM PM HIDE SELECTOR procedure are i n the results section. documented in this encounter Results DERMATOLOGY IMAGE EXAM (02/12/2017 12:30 PM HIDE SELECTOR) Specimen (Source) Anatomical Collection Method Collection Time Re ceived Time Location / / Volume Laterality 02/12/2017 12:00 PM HIDE SELECTOR Narrative [facility] - 02/12/2017 2:50 PM HIDE SELECTOR This order has been created and auto-finalized [...]
--- OUTSIDE RECORDS SUMMARY | 2021-11-11 12:53 | XMS_ITS | Encounter Summary ---
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 [facility] Procedures Prior Auth Rad Tx [place] IMRT COMPLEX [address] [place] [address] Referral ID Status Reason Start Date Expiration Date Visits Requ ested Visits Authorized [id number] Closed 04/16/2020 04/16/2021 15 15 Encounter Details Date Type Department Care Team Description 04/26/2020 Hospital Encounter Department of Radiation Shaneka Natarajan I., Oncology in [place], Corinne [place] [address] [facility] [address] [place] [phone] Social History Tobacco Use Types Packs/Day Years [...]
--- OUTSIDE RECORDS SUMMARY | 2021-11-11 12:53 | XMS_ITS | Encounter Summary ---
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 [facility] Procedures Prior Auth Rad Tx [place] IMRT COMPLEX [address] [place] [address] Referral ID Status Reason Start Date Expiration Date Visits Requ ested Visits Authorized [id number] Closed 04/16/2020 04/16/2021 15 15 Encounter Details Date Type Department Care Team Description 04/25/2020 Hospital Encounter Department of Radiation Shaneka Natarajan I., Oncology in [place], [place]inne [place] [address] [facility] [address] [place] [phone] Social History Tobacco Use Types Packs/Day Years [...]
--- OUTSIDE RECORDS SUMMARY | 2021-11-11 12:53 | XMS_ITS | Encounter Summary ---
:1940 Author Organization [facility] Address [address] [place] [address] Care Team Providers Name Role Phone Unavailable [...] 04/16/2020 1:28 PM Re sults for this MEDIA DEVELOPER procedure are i n the results section. documented in this encounter Results Leg-Oncology Image Exam (04/16/2020 1:28 PM MEDIA DEVELOPER) Specimen (Source) Anatomical Collection Method Collection Time Re ceived Time Location / / Volume Laterality 04/16/2020 1:25 PM MEDIA DEVELOPER Narrative IIMS - 04/16/2020 1:28 PM MEDIA DEVELOPER This order has been created and auto-finalized [...]
--- OUTSIDE RECORDS SUMMARY | 2021-11-11 12:53 | XMS_ITS | Encounter Summary ---
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 [facility] [place] [facility] Procedures Management Visit [address] [place], [place] [address] Referral ID Status Reason Start Date Expiration Date Visits V isits Requested Authorized [id number] Canceled 04/10/2020 04/10/2021 5 5 Encounter Details Date Type Department Care Team Description 04/26/2020 Hospital Encounter Department of Bethany Natarajan Neoplasm Of Lower Limb Basal Cell Carcinoma Left; Radiation Oncology Corinne Adhikari 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; in [place], [address] [place] [address] Malignant Neoplasm Of Lower Limb Basal C ell Carcinoma Right [place], [place] [address] [facility] [address] [place], [place] [phone] (Work) [phone] Social History Tobacco Use Types Packs/Day Years Used Date Smoking Tobacco: Every Day Sex Assigned at Date Recorded Not on file documented as of this encounter Last Filed Vital Signs Vital Sign Reading Time Taken Comments Blood Pressure 156/86 04/26/2020 2:31 PM R&D LAB TECHNICIAN Pulse 92 04/26/2020 2:31 PM R&D LAB TECHNICIAN Temperature 36.9 ??C (98.5 ??F) 04/26/2020 2:31 PM R&D LAB TECHNICIAN Respiratory Rate - - Oxygen Saturation - - Inhaled Oxygen Concentration - - Weight 95.5 kg (210 lb 8.6 oz) 04/26/2020 2:31 PM R&D LAB TECHNICIAN Height - - Body Mass Index [...] 700 1400 3500 04/24/2020 04/25/2020 1 F1_RTInguinal 959 812 1131 04/24/2020 04/25/2020 1 F1_LT Leg 293 318 6778 04/24/2020 04/25/2020 1 Course Summary 04/24/2020 04/25/2020 [...] by: Deedee Fry R.N. 04/26/2020 2:54 PM R&D LAB TECHNICIAN ATTESTATION FOR MANAGEMENT VISIT I saw and evaluated the patient and participated in the gregory portions of the service as noted above. I reviewed the documentation of Ms. Deedee Fry RN and agree with the findings and plan. The patient appears well on exam. We will continue with radiation as planned and monitor weekly. Bethany Natarajan M.D., 04/26/2020 R&D LAB TECHNICIAN documented in this encounter Plan of [...]
--- OUTSIDE RECORDS SUMMARY | 2021-11-11 12:53 | XMS_ITS | Encounter Summary ---
:1940 Author Organization [facility] Address [address] [place] [address] Care Team Providers Name Role Phone Unavailable [...] 12:35 Result s for this EXAM PM PLASTIC PROCESS TECHNICIAN procedure are i n the results section. documented in this encounter Results DERMATOLOGY IMAGE EXAM (02/12/2017 12:35 PM PLASTIC PROCESS TECHNICIAN) Specimen (Source) Anatomical Collection Method Collection Time Re ceived Time Location / / Volume Laterality 02/12/2017 12:00 PM PLASTIC PROCESS TECHNICIAN Narrative IIMS - 02/12/2017 2:50 PM PLASTIC PROCESS TECHNICIAN This order has been created and [...]
--- OUTSIDE RECORDS SUMMARY | 2021-11-11 12:53 | XMS_ITS | Encounter Summary ---
:1940 Author Organization [facility] Address [address] [place] [address] Care Team Providers Name Role Phone Unavailable Primary Care Provider Unavailable Reason for Visit Reason Comments Lab Monitoring Encounter Details Date Type Department Care Team Description 04/19/2020 Documentation Department of Radiation Deedee Fry, Lab Monitoring Oncology in [facility] [address] [facility] [address] [place] [phone] (Wo rk) Social History Tobacco Use Types Packs/Day Years Used Date Smoking Tobacco: Every Day Sex Assigned at Date Recorded Not on file documented as of this encounter Progress Notes Deedee Fry, RJhonN. - 04/19/2020 10:39 AM CST Lab result entered in S BEAD MAKER documented in this encounter Plan of Treatment Not on filedocumented as of this encounter Procedures Procedure Name Priority Date/Time Associated Diagnosis Comme nts LABEXT SARS Routine 04/17/2020 12:00 AM Results for this CORONAVIRUS-2 GLASS BEAD MAKER procedure are in (COVID-19) RNA the results section. documented in this encounter Results EXT SARS Coronavirus-2 (COVID-19) RNA (04/17/2020 12:00 AM GLASS BEAD MAKER) [facility] Method Time Signature EXT Undetected Inconclus [facility] SARS-CoV-2 sylvia, LABORATORIES - RNA Indetermi [facility] Invalid, Negative, Not Detected, Undetecte d, Other (specify in comment) Specimen (Source) Anatomical Location Collection Method / Collectio n Time Received Time / Laterality Volume Swab 04/17/2020 Bethany Natarajan M.D. LAB MICROBIOLOGY - GENERAL O RDERABLES Performing Organization Address City/State/ZIP Code Phon e Number [facility] LABORATORIES - [address] [place], [place] [address] [facility] documented in this encounter Visit Diagnoses Not on filedocumented in this encounter
--- OUTSIDE RECORDS SUMMARY | 2021-11-11 12:53 | XMS_ITS | Encounter Summary ---
:1940 Author Organization [facility] Address [address] [place] [address] Care Team Providers Name Role Phone Unavailable [...] 12:00 Result s for this EXAM PM ACID CRANE OPERATOR procedure are i n the results section. documented in this encounter Results DERMATOLOGY IMAGE EXAM (01/19/2017 12:00 PM ACID CRANE OPERATOR) Specimen (Source) Anatomical Location Collection Method / Collectio n Time Received Time / Laterality Volume Narrative IIMS - 01/19/2017 4:19 PM ACID CRANE OPERATOR This order has been created and [...]
--- OUTSIDE RECORDS SUMMARY | 2021-11-11 12:53 | XMS_ITS | Encounter Summary ---
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 [facility] Procedures Prior Auth Rad Tx [place] IMRT COMPLEX [address] [place] [address] Referral ID Status Reason Start Date Expiration Date Visits Requ ested Visits Authorized [id number] Closed 04/16/2020 04/16/2021 15 15 Encounter Details Date Type Department Care Team Description 04/24/2020 Hospital Encounter Department of Radiation Shaneka Natarajan I., Oncology in [place], Corinne [place] [address] [facility] [address] [place] [phone] Social History Tobacco Use Types Packs/Day Years [...]
--- OUTSIDE RECORDS SUMMARY | 2021-11-11 12:53 | XMS_ITS | Encounter Summary ---
:1940 Author Organization [facility] Address [address] [place] [address] Care Team Providers Name Role Phone Unavailable [...] 12:00 Result s for this EXAM PM ADMIN ASST procedure are i n the results section. documented in this encounter Results DERMATOLOGY IMAGE EXAM (02/12/2017 12:00 PM ADMIN ASST) Specimen (Source) Anatomical Collection Method Collection Time Re ceived Time Location / / Volume Laterality 02/12/2017 12:00 PM ADMIN ASST Narrative IIMS - 02/12/2017 2:49 PM ADMIN ASST This order has been created and auto-finalized [...]
--- OUTSIDE RECORDS SUMMARY | 2021-11-11 12:53 | XMS_ITS | Encounter Summary ---
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 [facility] Procedures Prior Auth Rad Tx [place] IMRT COMPLEX [address] [place], [place] [address] Referral ID Status Reason Start Date Expiration Date Visits Requ ested Visits Authorized [id number] Closed 04/16/2020 04/16/2021 15 15 GRAPHER Encounter Details Date Type Department Care Team Description 04/16/2020 Orders Only Department of Bethany Natarajan N eoplasm Of Radiation Oncology in [place] Adhikari Lower Limb Squamous [place] [address] [facility] Cell Carcinoma Left [address] [place], [place] (Primary Dx) [place] [phone] Social History Tobacco Use Types Packs/Day Years [...]
--- OUTSIDE RECORDS SUMMARY | 2021-11-11 12:53 | XMS_ITS | Encounter Summary ---
:1940 Author Organization [facility] Address [address] [place] [address] Care Team Providers Name Role Phone Unavailable [...] 12:15 Result s for this EXAM PM CORE DIPPER procedure are i n the results section. documented in this encounter Results DERMATOLOGY IMAGE EXAM (02/12/2017 12:15 PM CORE DIPPER) Specimen (Source) Anatomical Collection Method Collection Time Re ceived Time Location / / Volume Laterality 02/12/2017 12:00 PM CORE DIPPER Narrative IIMS - 02/12/2017 2:49 PM CORE DIPPER This order has been created and auto-finalized [...]
--- OUTSIDE RECORDS SUMMARY | 2021-11-11 12:53 | XMS_ITS | Encounter Summary ---
:1940 Author Organization [facility] Address [address] [place] [address] Care Team Providers Name Role Phone Unavailable [...] 04/16/2020 1:25 PM Re sults for this BLISTER PACK OPERATOR procedure are i n the results section. documented in this encounter Results Pelvis-Oncology Image Exam (04/16/2020 1:25 PM BLISTER PACK OPERATOR) Specimen (Source) Anatomical Collection Method Collection Time Re ceived Time Location / / Volume Laterality 04/16/2020 1:25 PM BLISTER PACK OPERATOR Narrative IIMS - 04/16/2020 1:28 PM BLISTER PACK OPERATOR This order has been created and [...]
--- OUTSIDE RECORDS SUMMARY | 2021-11-11 12:53 | XMS_ITS | Encounter Summary ---
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 [place], [place] [address] [facility] [address] [place], [place] [phone] (Work) [phone] Social History Tobacco Use Types Packs/Day Years Used Date Smoking Tobacco: Every Day Sex Assigned at Date Recorded Not on file documented as of this encounter Last Filed Vital Signs Vital Sign Reading Time Taken Comments Blood Pressure 124/76 04/16/2020 12:50 PM ENTRY LEVEL INSTALLATION TECHNICIAN Pulse 93 04/16/2020 12:50 PM ENTRY LEVEL INSTALLATION TECHNICIAN Temperature 37.2 ??C (99 ??F) 04/16/2020 12:50 PM ENTRY LEVEL INSTALLATION TECHNICIAN Respiratory Rate - - Oxygen Saturation - - Inhaled Oxygen Concentration - - Weight 95.5 kg (210 lb 8.6 oz) 04/16/2020 12:50 PM ENTRY LEVEL INSTALLATION TECHNICIAN Height - - Body Mass Index [...] surgery, nose SOCIAL HISTORY He lives in [place], [place]. He lives at [place] in an apartment. He is single. 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 He is mobile with [...] Photos were taken and are available in [employer] after obtaining consent. He has a 1.5 [...] he did not show these to Dr. Jya. I told him that I would not [...] We discussed the acute as well as intermodal customer service risks, including, but not limited to fatigue, [...] by: Bethany Natarajan M.D. 04/16/2020 4:52 PM ENTRY LEVEL INSTALLATION TECHNICIAN Radiation Oncology [facility] [address] [place], [place] [phone] Y LEVEL INSTALLATION TECHNICIAN documented in this encounter Miscellaneous Notes Addendum Note - Mame Amezquita - 04/16/2020 1:00 PM ENTRY LEVEL INSTALLATION TECHNICIAN Encounter addended by: Mame Amezquita on: 04/17/2020 8:34 AM Actions taken: Letter saved Y LEVEL INSTALLATION TECHNICIAN documented in this encounter Plan of Treatment Not on filedocumented as of this encounter Visit Diagnoses Diagnosis Malignant Neoplasm Of Lower Limb Basal C ell Carcinoma Left - Primary Malignant Neoplasm Of Lower Limb Basal C ell Carcinoma Right 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
--- OUTSIDE RECORDS SUMMARY | 2021-11-11 12:53 | XMS_ITS | Encounter Summary ---
:1940 Author Organization [facility] Address [address] [place] [address] Care Team Providers Name Role Phone Unavailable [...] Onc Treatment Planning CT Simulation [address] [place], [place] [address] Referral ID Status Reason Start Date Expiration Date Visits Requ ested Visits Authorized [id number] Closed 04/10/2020 04/10/2021 1 1 ECTION OFFICER PENITENTIARY Reason for Visit Radiation Therapy (Routine) - [...] Onc Treatment Planning CT Simulation [address] [place], [place] [address] Referral ID Status Reason Start Date Expiration Date Visits Requ ested Visits Authorized [id number] Closed 04/10/2020 04/10/2021 1 1 Encounter Details Date Type Department Care Team Description 04/16/2020 Hospital Encounter Department of Bethany Natarajan Neoplasm Of Lower Limb Basal Cell Carcinoma Left; Radiation Oncology Corinne Adhikari 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 CT images were transferred to the Fl[employer] treatment planning system, after a reference isocenter was determined and marked. Segmentation and treatment planning will take place priorto treatment delivery. Patient set up and imaging was appropriate and completed without incident. Supervisor Shaving And Splitting use:No ECTION OFFICER PENITENTIARY documented in this encounter Plan of Treatment Not on filedocumented as of this encounter Procedures Procedure Name Priority Date/Time Associated Comments Diagnosis INITIAL RAD ONC Routine 04/16/2020 2:00 PM Malignant Neoplasm Results for this TREATMENT PLANNING CORRECTION OFFICER PENITENTIARY Of Lower Limb Basal pr ocedure are in CT SIMULATION Cell Carcinoma L eft the results Malignant Neoplasm section. Of Lower Limb Squamous Cell Carcinoma Left Malignant Neoplasm Of Lower Limb Basal Cell Carcinoma Right documented in this encounter Results Initial Rad Onc Treatment Planning CT Simulation (04/16/2020 2:00 PM CORRECTION OFFICER PENITENTIARY) Specimen (Source) Anatomical Location Collection Method / Collectio n Time Received Time / Laterality Volume Narrative [facility] - 04/16/2020 2:00 PM CORRECTION OFFICER PENITENTIARY Coral Alonso RTT ? 04/16/2020 ??4:02 PM Initial Rad Onc Treatment Planning CT Si mulation Date/Time: 04/16/2020 3:57 PM Performed by: Bethany Natarajan M.D. Authorized by: Bethany Natarajan M.D. Bethany Natarajan M.D. 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
--- OUTSIDE RECORDS SUMMARY | 2021-11-11 12:53 | XMS_ITS | Encounter Summary ---
:1940 Author Organization [facility] Address [address] [place] [address] Care Team Providers Name Role Phone Unavailable Primary Care Provider Unavailable Encounter Details Date Type Department Care Team Description 02/12/2017 Hospital Encounter HX RST DERM SURG OP Avni Gaffney [facility] M.D. [address] [place] [address] (Wo rk) Social History Tobacco Use Types Packs/Day Years Used Date Smoking Tobacco: Never Assessed Sex Assigned at Date Recorded Not on file documented as of this encounter Last Filed Vital Signs Vital Sign Reading Time Taken Comments Blood Pressure 141/85 02/12/2017 8:05 AM INSOLE DEPARTMENT WORKER Vital sign result from Clinical Notes. Pulse 89 02/12/2017 8:05 AM INSOLE DEPARTMENT WORKER Vital sign result from Clinical Notes. Temperature [...]
--- OUTSIDE RECORDS SUMMARY | 2021-11-11 12:53 | XMS_ITS | Encounter Summary ---
:1940 Author Organization [facility] Address [address] [place] [address] Care Team Providers Name Role Phone Unavailable [...] 12:05 Result s for this EXAM PM AUGER OPERATOR procedure are i n the results section. documented in this encounter Results DERMATOLOGY IMAGE EXAM (02/12/2017 12:05 PM AUGER OPERATOR) Specimen (Source) Anatomical Collection Method Collection Time Re ceived Time Location / / Volume Laterality 02/12/2017 12:00 PM AUGER OPERATOR Narrative IIMS - 02/12/2017 2:49 PM AUGER OPERATOR This order has been created and [...]
--- OUTSIDE RECORDS SUMMARY | 2021-11-11 12:53 | XMS_ITS | Encounter Summary ---
:1940 Author Organization [facility] Address [address] [place] [address] Care Team Providers Name Role Phone Unavailable Primary Care Provider Unavailable Reason for Referral Specialty Diagnoses / Procedures Referred By Contact Refer red To Contact Bethany Natarajan M.D. 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 04/16/2020 ??4:02 PM Initial Rad Onc Treatment Planning CT Si mulation Date/Time: 04/16/2020 3:57 PM Performed by: Bethany Natarajan M.D. Authorized by: Bethany Natarajan M.D. Bethany Natarajan M.D. RADIATION ONCOLOGY ORDERABLE S Performing Organization Address City/State/ZIP Code Phon e Number [place] documented in this encounter [...]
--- OUTSIDE RECORDS SUMMARY | 2021-11-11 12:53 | XMS_ITS | Encounter Summary ---
:1940 Author Organization 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 [facility] Procedures Prior Auth Rad Tx [place] IMRT COMPLEX [address] [place] [address] Referral ID Status Reason Start Date Expiration Date Visits Requ ested Visits Authorized [id number] Closed 04/16/2020 04/16/2021 15 15 Encounter Details Date Type Department Care Team Description 04/30/2020 Hospital Encounter Department of Radiation Shaneka Natarajan I., Oncology in [place], [place] [address] [facility] [address] [place] [phone] Social History Tobacco Use Types Packs/Day Years [...]
--- OUTSIDE RECORDS SUMMARY | 2021-11-11 12:53 | XMS_ITS | Encounter Summary ---
:1940 Author Organization [facility] Address [address] [place] [address] Care Team Providers Name Role Phone Unavailable [...] 04/16/2020 1:28 PM Re sults for this MANAGER TALENT MANAGEMENT procedure are i n the results section. documented in this encounter Results Leg-Oncology Image Exam (04/16/2020 1:28 PM MANAGER TALENT MANAGEMENT) Specimen (Source) Anatomical Collection Method Collection Time Re ceived Time Location / / Volume Laterality 04/16/2020 1:25 PM MANAGER TALENT MANAGEMENT Narrative IIMS - 04/16/2020 1:28 PM MANAGER TALENT MANAGEMENT This order has been created and auto-finalized [...]
--- OUTSIDE RECORDS SUMMARY | 2021-11-11 12:53 | XMS_ITS | Encounter Summary ---
:1940 Author Organization [facility] Address [address] [place] [address] Care Team Providers Name Role Phone Unavailable [...] 12:10 Result s for this EXAM PM INTELLIGENCE CONSULTANT procedure are i n the results section. documented in this encounter Results DERMATOLOGY IMAGE EXAM (02/12/2017 12:10 PM INTELLIGENCE CONSULTANT) Specimen (Source) Anatomical Collection Method Collection Time Re ceived Time Location / / Volume Laterality 02/12/2017 12:00 PM INTELLIGENCE CONSULTANT Narrative IIMS - 02/12/2017 2:49 PM INTELLIGENCE CONSULTANT This order has been created and [...]
--- OUTSIDE RECORDS SUMMARY | 2021-11-11 12:53 | XMS_ITS | Encounter Summary ---
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 [facility] Procedures Prior Auth Rad Tx [place] IMRT COMPLEX [address] [place] [address] Referral ID Status Reason Start Date Expiration Date Visits Requ ested Visits Authorized [id number] Closed 04/16/2020 04/16/2021 15 15 Encounter Details Date Type Department Care Team Description 05/01/2020 Hospital Encounter Department of Radiation Shaneka Natarajan I., Oncology in [place], [place] [address] [facility] [address] [place] [phone] Social History Tobacco Use Types Packs/Day Years [...]
--- OUTSIDE RECORDS SUMMARY | 2021-11-11 12:53 | XMS_ITS | Encounter Summary ---
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 [facility] Procedures Prior Auth Rad Tx [place] IMRT COMPLEX [address] [place] [address] Referral ID Status Reason Start Date Expiration Date Visits Requ ested Visits Authorized [id number] Closed 04/16/2020 04/16/2021 15 15 Encounter Details Date Type Department Care Team Description 04/29/2020 Hospital Encounter Department of Radiation Shaneka Natarajan I., Oncology in [place], [place] [address] [facility] [address] [place] [phone] Social History Tobacco Use Types Packs/Day Years [...]
--- OUTSIDE RECORDS SUMMARY | 2021-11-11 12:53 | XMS_ITS | Encounter Summary ---
:1940 Author Organization [facility] Address [address] [place] [address] Care Team Providers Name Role Phone Unavailable [...] 12:20 Result s for this EXAM PM MATERIAL HANDLING CREW SUPERVISOR procedure are i n the results section. documented in this encounter Results DERMATOLOGY IMAGE EXAM (02/12/2017 12:20 PM MATERIAL HANDLING CREW SUPERVISOR) Specimen (Source) Anatomical Collection Method Collection Time Re ceived Time Location / / Volume Laterality 02/12/2017 12:00 PM MATERIAL HANDLING CREW SUPERVISOR Narrative IIMS - 02/12/2017 2:49 PM MATERIAL HANDLING CREW SUPERVISOR This order has been created and [...]
--- OUTSIDE RECORDS SUMMARY | 2021-11-11 12:53 | XMS_ITS | Encounter Summary ---
:1940 Author Organization [facility] Address [address] [place] [address] Care Team Providers Name Role Phone Unavailable [...] 12:25 Result s for this EXAM PM COTTON BROKER procedure are i n the results section. documented in this encounter Results DERMATOLOGY IMAGE EXAM (02/12/2017 12:25 PM COTTON BROKER) Specimen (Source) Anatomical Collection Method Collection Time Re ceived Time Location / / Volume Laterality 02/12/2017 12:00 PM COTTON BROKER Narrative IIMS - 02/12/2017 2:50 PM COTTON BROKER This order has been created and auto-finalized [...]
--- OUTSIDE RECORDS SUMMARY | 2021-11-11 12:53 | XMS_ITS | Encounter Summary ---
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 [facility] [place] [facility] Procedures Management Visit [address] [place], [place] [address] Referral ID Status Reason Start Date Expiration Date Visits V isits Requested Authorized [id number] Canceled 04/10/2020 04/10/2021 5 5 Encounter Details Date Type Department Care Team Description 05/01/2020 Hospital Encounter Department of Bethany Natarajan 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 Malignant Neoplasm Of Lower Limb Basal C ell Carcinoma Right [place], [place] [address] [facility] [address] [place], [place] [phone] (Work) [phone] Social History Tobacco Use Types Packs/Day Years Used Date Smoking Tobacco: Every Day Sex Assigned at Date Recorded Not on file documented as of this encounter Last Filed Vital Signs Vital Sign Reading Time Taken Comments Blood Pressure 148/82 05/01/2020 1:55 PM MANAGER SPECIALTY Pulse 86 05/01/2020 1:55 PM MANAGER SPECIALTY Temperature 36.3 ??C (97.3 ??F) 05/01/2020 1:55 PM MANAGER SPECIALTY Respiratory Rate - - Oxygen Saturation - [...] Quynh Moreno P.A.-C. M.SJhon 05/01/2020 2:25 PM MANAGER SPECIALTY GER SPECIALTY Associated attestation - Bethany Natarajan M.D. - 05/01/2020 4:43 PM MANAGER SPECIALTY I saw and evaluated the patient and [...]
== END 2021-11-11 12:51 | disposition home or self-care (01) ==
LOC: WOUND 12:50
PROVIDERS: PCP Family Medicine; Visit Provider Nurse Practitioner Family
DX: L59.8 Other specified disorders of the skin and subcutaneous tissue related to radiation (principal); L89.313 Pressure ulcer of right buttock, stage 3
CPT/HCPCS: 99213

== ENCOUNTER 2021-11-25 12:45 | Outpatient (CLI) | payer OTHER, SELFPAY ==
--- OUTSIDE RECORDS SUMMARY | 2021-11-25 12:47 | XMS_ITS | Encounter Summary ---
:1940 Author Organization [facility] Address [address] [place] [address] Care Team Providers Name Role Phone Unavailable Primary Care Provider Unavailable Encounter Details Date Type Department Care Team Description 07/10/2020 Clinical Communication Department of Bethany Natarajan Radiation Oncology in [place] Ad[place] [facility] [address] [facility] [address] [place] [phone] Social History Tobacco Use Types Packs/Day Years [...] informed him that a prescription for the [place] has been sent to the [facility] in [place]. Phone number: [phone] Is it okay to leave a voicemail on answering machine with test results? Yes Pharmacy (if medication related): N/A Elif Parkinson documented in this encounter Plan of Treatment Not on filedocumented as of this encounter Visit Diagnoses Not on filedocumented in this encounter
--- OUTSIDE RECORDS SUMMARY | 2021-11-25 12:47 | XMS_ITS | Encounter Summary ---
:1940 Author Organization [facility] Address [address] [place] [address] Care Team Providers Name Role Phone Unavailable Primary Care Provider Unavailable Encounter Details Date Type Department Care Team Description 09/27/2020 Clinical Communication Department of Bethany Natarajan Radiation Oncology in [place] Adhikari [facility] [address] [facility] [address] [place] [address] [phone] Social History Tobacco Use Types Packs/Day Years [...]
--- OUTSIDE RECORDS SUMMARY | 2021-11-25 12:47 | XMS_ITS | Encounter Summary ---
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 I encouraged him to [...] Garrison Casas M.D. 05/07/2020 4:51 PM CDT [facility] [address] [place] [address] documented in this encounter Plan of Treatment [...]
--- OUTSIDE RECORDS SUMMARY | 2021-11-25 12:47 | XMS_ITS | Clinical Summary ---
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 on following regimen: 0 04/16/2014 Active mg/mL inj LOADING DOSE: 0.2 mg for 1 dose CONVEYOR OPERATOR BOLUS DOSE: 0.2-0.3 mg LOCKOUT INTERVAL: [...] elationship: Life Partner Secondary Health Care Agent: [place] p: Phone: Conservator: Relationship: Phone: Guardian: Relationship: [...] 3-15-10 05/06/2009 Cardiomyopathy , ischemic; old inf [place] 05/02/2009 Overview: Per preop, EF of 39% [...] Comments Blood Pressure 123/73 04/16/2014 2:19 PM HYDRODYNAMICIST Pulse 115 04/16/2014 2:19 PM HYDRODYNAMICIST Temperature 38.3 ??C (100.9 ??F) 04/16/2014 3:30 PM HYDRODYNAMICIST Respiratory Rate 20 04/16/2014 2:19 PM HYDRODYNAMICIST Oxygen Saturation 94% 04/16/2014 2:19 PM HYDRODYNAMICIST Inhaled Oxygen Concentration - - Weight 86.1 kg (189 lb 13.1 oz) 04/16/2014 5:00 AM HYDRODYNAMICIST Height 180.3 cm (5' 10.98) 04/02/2014 12:00 AM HYDRODYNAMICIST Body Mass Index 26.49 04/02/2014 12:00 AM HYDRODYNAMICIST Plan of Treatment Health Maintenance Due Date [...] 65+ 10/23/2021 Medical Devices Implanted Type Area Customer Service Cashier Device Shelf Model / Identifier Expiration Serial / Date Lot Screw Self Drilling 3.5x15mm - [id number] N/A: Spine SOFAMOR DANEK [id number] / Implanted: Qty: 4 on 06/24/2010 at [facility] / Humeral Tray Left: [id number] / Implanted: Qty: 1 on 03/17/2012 at [facility] Shoulder / [id number] Description: HUMERAL TRAY Explanted Type Area Customer Service Cashier Device Shelf Model / Identifier Expiration Serial / Date Lot Patch Vasc 0.8x8cm Xenosure [employer] Pericardial - [id number] Right: Lemaitre 0.8P8# / Explanted: Qty: 1 on 03/09/2014 at [facility] [employer] / [id number] Results Not on filefrom Last 3 Months Insurance Payer Benefit Plan / Subscriber ID Effective Dates Phone Addre ss Type Group [facility] [id number] 2015-Present [address] [place] [address] Guarantor Name Account Type Relation to Date of Phone Bill ing Patient Address Tl Lugo Personal/Family Self 1940 [phone] (Home) [place] [address] Advance Directives Documents on File Type Date Recorded 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
--- OUTSIDE RECORDS SUMMARY | 2021-11-25 12:47 | XMS_ITS | Encounter Summary ---
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 Procedures Prior Auth Rad Tx [place] IMRT COMPLEX [address] [place] [address] Referral ID Status Reason Start Date Expiration Date Visits Requ ested Visits Authorized [id number] Closed 04/16/2020 04/16/2021 15 15 Encounter Details Date Type Department Care Team Description 05/08/2020 Hospital Encounter Department of Radiation Shaneka Natarajan I., [place]cology [place] [address] [facility] [address] [place] [phone] Social History Tobacco Use Types Packs/Day Years [...]
--- OUTSIDE RECORDS SUMMARY | 2021-11-25 12:47 | XMS_ITS | Encounter Summary ---
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 [facility] Procedures Prior Auth Rad Tx [place] IMRT COMPLEX [address] [place] [address] Referral ID Status Reason Start Date Expiration Date Visits Requ ested Visits Authorized [id number] Closed 04/16/2020 04/16/2021 15 15 Encounter Details Date Type Department Care Team Description 05/02/2020 Hospital Encounter Department of Radiation Shaneka Natarajan I., [place] [address] [facility] [address] [place] [phone] Social History Tobacco Use Types Packs/Day Years [...]
--- OUTSIDE RECORDS SUMMARY | 2021-11-25 12:47 | XMS_ITS | Encounter Summary ---
:1940 Author Organization [facility] Address [address] [place] [address] Care Team Providers Name Role Phone Unavailable Primary Care Provider Unavailable Reason for Visit Reason Comments Follow-up Encounter Details Date Type Department Care Team Description 10/30/2020 Clinical Communication Department of Bethany Natarajanzuhair Radiation Oncology in [place] [facility] a [address] [facility] [address] [place] [phone] Social History Tobacco Use Types Packs/Day Years [...] center to help with this. Phone number: [phone] Is it okay to leave a voicemail on answering machine with test results? No Pharmacy (if medication related): N/A Elif Parkinson documented in this encounter Plan of Treatment Not on filedocumented as of this encounter Visit Diagnoses Not on filedocumented in this encounter
--- OUTSIDE RECORDS SUMMARY | 2021-11-25 12:47 | XMS_ITS | Encounter Summary ---
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
--- OUTSIDE RECORDS SUMMARY | 2021-11-25 12:47 | XMS_ITS | Encounter Summary ---
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 [facility] Procedures Prior Auth Rad Tx [place] IMRT COMPLEX [address] [place] [address] Referral ID Status Reason Start Date Expiration Date Visits Requ ested Visits Authorized [id number] Closed 04/16/2020 04/16/2021 15 Encounter Details Date Type Department Care Team Description 05/06/2020 Hospital Encounter Department of Radiation Shaneka Natarajan I., [place]cology [place] [address] [facility] 1821 [place] [phone] Social History Tobacco Use Types Packs/Day Years [...]
--- OUTSIDE RECORDS SUMMARY | 2021-11-25 12:47 | XMS_ITS | Encounter Summary ---
:1940 Author Organization [facility] Address [address] [place] [address] Care Team Providers Name Role Phone Unavailable Primary Care Provider Unavailable Reason for Referral Outpatient (Routine) - Closed Specialty Diagnoses / Procedures Referred By Contact Refer jose luis To Contact Radiation Oncology Bethany Natarajan [facility] Feli Gomez M.D. [address] [place] [phone] Referral ID Status Reason Start Date Expiration Date Visits Requ ested Visits Authorized [id number] Closed 05/28/2020 05/28/2021 1 1 Scheduling Instructions 2-3 weeks with CECY and Deedee Reason for Visit Outpatient (Routine) - Closed Specialty Diagnoses / Procedures Referred By Contact Sofi amaya To Contact Radiation Oncology Bethany Natarajan [facility] Feli Gomez M.D. [address] [place] [phone] Referral ID Status Reason Start Date Expiration Date Visits Requ ested Visits Authorized [id number] Closed 05/28/2020 05/28/2021 1 1 Encounter Details Date Type Department Care Team Description 06/11/2020 Hospital Encounter Department of Bethany Natarajan (Primary Dx) Radiation Oncology [place] Adhikari in [place], [address] [place] [address] 1821 [facility] [address] [place], [place] [phone] (Work) [phone] Social History Tobacco Use Types Packs/Day Years [...] a 8 out of 10.He takes 1 [place] in the morning and 1 at bedtime. [...] will send through prescription refill on his [place] to his preferred pharmacy today. Patient is to not exceed 3200 mg of Ibuprofen a day. We encouraged patient to trial warm compresses for acute right eye mattering. We will send through referral to [facility]. We will see Mr. Tl Lugo in a follow-up visit in late July. The patient was told to contact us sooner with questions or concerns. He verbally expressed his understanding of the plan. Signed by: Deedee Fry R.N. 06/11/2020 1:09 PM CDT [facility] [address] [place] [address] documented in this encounter Plan of Treatment Scheduled Referrals Name Type Priority Associated Order Schedule Diagnoses Radiation Oncology Outpatient Referral Routine On ce for 1 office visit Occurrences sta rting (clinic) 06/11/2020 unti l 06/11/2020 documented as of this encounter Visit Diagnoses Diagnosis Red Eye - Primary documented in this encounter
--- OUTSIDE RECORDS SUMMARY | 2021-11-25 12:47 | XMS_ITS | Encounter Summary ---
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 [facility] Procedures Prior Auth Rad Tx [place] IMRT COMPLEX [address] [place] [address] Referral ID Status Reason Start Date Expiration Date Visits Requ ested Visits Authorized [id number] Closed 04/16/2020 04/16/2021 15 15 Encounter Details Date Type Department Care Team Description 05/09/2020 Hospital Encounter Department of Radiation Shaneka Natarajan I., [place]cology [place] [address] [facility] [address] [place] [phone] Social History Tobacco Use Types Packs/Day Years [...]
--- OUTSIDE RECORDS SUMMARY | 2021-11-25 12:47 | XMS_ITS | Encounter Summary ---
:1940 Author Organization [facility] Address [address] [place] [address] Care Team Providers Name Role Phone Unavailable Primary Care Provider Unavailable Reason for Referral Outpatient (Routine) - Closed Specialty Diagnoses / Procedures Referred By Contact Refer red To Contact Radiation Oncology Bethany Natarajan [facility] Sun [address] [place] [address] Referral ID Status Reason Start Date Expiration Date Visits Requ ested Visits Authorized [id number] Closed 05/15/2020 05/15/2021 1 1 Scheduling Instructions Deedee first to assess skin Radiation Therapy (Routine) - Canceled Specialty Diagnoses / Procedures Referred By Contact Refer red To Contact Diagnoses 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 Radiation Oncology [place] can be contacted at anytime for any questions or concerns. Patient stated a full understanding to the plan of care discussed today. Toxicities reviewed with Dr. Natarajan today. Signed by: Deedee Fry R.N. 05/15/2020 2:59 PM CDT [facility] Therapy [facility] [address] [place] [address] documented in this encounter Plan of Treatment [...]
--- OUTSIDE RECORDS SUMMARY | 2021-11-25 12:47 | XMS_ITS | Encounter Summary ---
:1940 Author Organization [facility] Address [address] [place] [address] Care Team Providers Name Role Phone Unavailable Primary Care Provider Unavailable Encounter Details Date Type Department Care Team Description 05/15/2020 Hospital Encounter Department of Radiation Shaneka Natarajan I., Oncology in [facility] [address] [facility] [address] [place] [phone] Social History Tobacco Use Types Packs/Day Years [...]
--- OUTSIDE RECORDS SUMMARY | 2021-11-25 12:47 | XMS_ITS | Encounter Summary ---
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 [facility] Procedures Prior Auth Rad Tx [place] IMRT COMPLEX [address] [place] [address] Referral ID Status Reason Start Date Expiration Date Visits Requ ested Visits Authorized [id number] Closed 04/16/2020 04/16/2021 15 15 Encounter Details Date Type Department Care Team Description 05/07/2020 Hospital Encounter Department of Radiation Shaneka Natarajan I., [place]cology [place] [address] [facility] [address] [place] [phone] Social History Tobacco Use Types Packs/Day Years [...]
--- OUTSIDE RECORDS SUMMARY | 2021-11-25 12:47 | XMS_ITS | Encounter Summary ---
:1940 Author Organization [facility] Address [address] [place] [address] Care Team Providers Name Role Phone Unavailable Primary Care Provider Unavailable Reason for Referral Specialty Diagnoses / Procedures Referred By Contact Refer red To Contact Bethany Natarajan M.D. 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 [address] [place] [phone] Malignant Neoplasm Of Lower Limb Basal C ell Carcinoma Left; 05/17/2020 Radiation Oncology Deedee Fry R.N. [address] [place] [phone] 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; in [place], Malignant Henry plasm Of Lower Limb Basal Cell Carcinoma Right [place] [address] [place] [phone] Social History Tobacco Use Types Packs/Day Years [...]
--- OUTSIDE RECORDS SUMMARY | 2021-11-25 12:47 | XMS_ITS | Encounter Summary ---
:1940 Author Organization [facility] Address [address] [place] [address] Care Team Providers Name Role Phone Unavailable Primary Care Provider Unavailable Reason for Visit Reason Comments Med Refill Encounter Details Date Type Department Care Team Description 07/09/2020 Clinical Communication Department of Bethany Natarajan ed Refill Radiation Oncology in [place] Adhikari [facility] [address] [facility] 1821 [place] [phone] Social History Tobacco Use Types Packs/Day Years [...] would like a refill today. Phone number: [phone] Is it okay to leave a voicemail on answering machine with test results? Yes Pharmacy (if medication related): [facility] [address] [place] [address] [facility] [address] [facility] [address] Paula Hall documented in this encounter Plan of Treatment Not on filedocumented as of this encounter Visit Diagnoses Not on filedocumented in this encounter
--- OUTSIDE RECORDS SUMMARY | 2021-11-25 12:47 | XMS_ITS | Encounter Summary ---
:1940 Author Organization [facility] Address [address] [place] [address] Care Team Providers Name Role Phone Unavailable Primary Care Provider Unavailable Encounter Details Date Type Department Care Team Description 11/01/2020 Orders Only [facility] Sa greyson Moore M.D. [address] [place], [place] [phone] (Wo rk) Social History Tobacco Use Types Packs/Day Years Used Date Smoking Tobacco: Every Day Sex Assigned at Date Recorded Not on file documented as of this encounter Plan of Treatment Not on filedocumented as of this encounter Visit Diagnoses Not on filedocumented in this encounter
--- OUTSIDE RECORDS SUMMARY | 2021-11-25 12:47 | XMS_ITS | Encounter Summary ---
:1940 Author Organization [facility] Address [address] [place] [address] Care Team Providers Name Role Phone Unavailable Primary Care Provider Unavailable Reason for Referral Outpatient (Routine) - Closed Specialty Diagnoses / Procedures Referred By Contact Refer red To Contact Radiation Oncology Bethany Natarajan [facility] Feli Gomez M.D. 200 [place] [address] Referral ID Status Reason Start Date Expiration Date Visits Requ ested Visits Authorized [id number] Closed 05/28/2020 05/28/2021 1 1 Scheduling Instructions 2-3 weeks with CECY and Deedee Outpatient (Routine) - Closed Specialty Diagnoses / Procedures Referred By Contact Refer red To Contact Radiation Oncology Bethany Natarajan [facility] Feli Gomez M.D. 200 [place] [address] Referral ID Status Reason Start Date Expiration Date Visits Requ ested Visits Authorized [id number] Closed 05/15/2020 05/15/2021 1 1 Scheduling Instructions Deedee first to assess skin Reason for Visit Outpatient (Routine) - Closed Specialty Diagnoses / Procedures Referred By Contact Refer red To Contact Radiation Oncology Bethany Natarajan [facility] Feli Gomez M.D. 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 05/28/2020 1:16 PM CDT [facility] [address] [place] [address] ATTESTATION FOR FOLLOW-UP VISIT I saw and [...]
--- OUTSIDE RECORDS SUMMARY | 2021-11-25 12:47 | XMS_ITS | Encounter Summary ---
:1940 Author Organization [facility] Address [address] [place] [address] Care Team Providers Name Role Phone Unavailable Primary Care Provider Unavailable Reason for Visit Reason Comments Med Refill Encounter Details Date Type Department Care Team Description 08/08/2020 Clinical Communication Department of Travis Hall Refjoanne Radiation Oncology [place] [facility] [place] [address] [place] [phone] Social History Tobacco Use Types Packs/Day Years Used Date Smoking Tobacco: Every Day Sex Assigned at Date Recorded Not on file documented as of this encounter Miscellaneous Notes Telephone Encounter - Deedee Fry R.N. - 08/08/2020 1:06 PM CDT Information Discussed I called and left voicemail on patient's phone requesting call back. Patient reported that he was taking [employer] twice a day at his last in office visit with us. PLAN Dr. Natarajan and I will send through refill on [employer] to get him through until August 16, 2020, when he is scheduled for follow up with Dr. Natarajan in [place]. Disposition/Recommendation: I requested call back, refill will [...] can be done or not Phone number: [phone] Is it okay to leave a voicemail on answering machine with test results? Yes Pharmacy (if medication related): [facility] [address] [place] [address] Paula Hall documented in this encounter Plan of Treatment Not on filedocumented as of this encounter Visit Diagnoses Not on filedocumented in this encounter
--- OUTSIDE RECORDS SUMMARY | 2021-11-25 12:47 | XMS_ITS | Encounter Summary ---
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 [facility] Procedures Prior Auth Rad Tx [place] IMRT COMPLEX [address] [place] [address] Referral ID Status Reason Start Date Expiration Date Visits Requ ested Visits Authorized [id number] Closed 04/16/2020 04/16/2021 15 15 Encounter Details Date Type Department Care Team Description 05/14/2020 Hospital Encounter Department of Radiation Shaneka Natarajan I., [place]cology [place] [address] [facility] [address] [place] [phone] Social History Tobacco Use Types Packs/Day Years [...]
--- OUTSIDE RECORDS SUMMARY | 2021-11-25 12:47 | XMS_ITS ---
:1940 Author Organization [facility] Address [address] [place] [address] Care Team Providers Name Role Phone Unavailable [...] Elapsed Days Session Dose Total Dos e [id number] 05/15/2020 21 300 cGy 4,500 cGy [id number] 05/06/2020 12 425 cGy 3,825 cGy [id number] 04/26/2020 2 700 cGy 2,100 cGy
--- OUTSIDE RECORDS SUMMARY | 2021-11-25 12:47 | XMS_ITS | Encounter Summary ---
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 [facility] Procedures Prior Auth Rad Tx [place] IMRT COMPLEX [address] [place] [address] Referral ID Status Reason Start Date Expiration Date Visits Requ ested Visits Authorized [id number] Closed 04/16/2020 04/16/2021 15 15 Encounter Details Date Type Department Care Team Description 05/03/2020 Hospital Encounter Department of Radiation Shaneka Nataraajn I., [place]cology in [place] [address] [facility] [address] [place] [phone] Social History Tobacco Use Types Packs/Day Years [...]
--- OUTSIDE RECORDS SUMMARY | 2021-11-25 12:47 | XMS_ITS | Clinical Summary ---
:1940 Author Organization [facility] Address [address] [place] [address] Care Team Providers Name Role Phone Unavailable Primary Care Provider Unavailable Source Comments Patient records contain information from all sites at [facility]. For routine questions regarding patient records, call [phone] during business hours, M-F 8:00 AM - 5:00 PM Central Time. Record requests for emergency care only can be directed to [phone] at any time.[facility] Allergies Active Allergy Reactions Severity Noted Date [...] 02/22/2021 COVID-19 Vaccine (5 - Booster for 08/26/2021 07/01/2021, , Moderna series) 05/09/2020, Additional history exists Influenza Vaccine (#1) 2021 DTaP,Tdap,and Td Vaccines (3 - Td 01/02/2030 01/03/2020, or Tdap) Pneumococcal vaccine (65+ years) Completed 08/22/2014, 10/2009 Insurance Payer Benefit Plan / Subscriber ID Effective Dates Phone Addre ss Type Group [facility] [id number] 2021-Present [phone] [address] [place] [address]
--- OUTSIDE RECORDS SUMMARY | 2021-11-25 12:47 | XMS_ITS | Encounter Summary ---
:1940 Author Organization [facility] Address [address] [place] [address] Care Team Providers Name Role Phone Unavailable Primary Care Provider Unavailable Reason for Referral Outpatient (Routine) - Closed Specialty Diagnoses / Procedures Referred By Contact Refer red To Contact Diagnoses Swelling Testicle Garrison Casas M.D. 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 [facility] Procedures Management Visit [address] [place], [place] [phone] Referral ID Status Reason Start Date Expiration Date Visits V isits Requested Authorized [id number] Canceled 04/10/2020 04/10/2021 5 5 Reason for [...] CENTER Region Procedures Management Visit [address] [place] [address] Referral ID Status Reason Start Date Expiration Date Visits V isits Requested Authorized [id number] Canceled 04/10/2020 04/10/2021 5 5 Encounter Details Date Type Department Care Team Description 05/08/2020 Hospital Encounter Department of Garrison Casas ing Testicle (Primary Dx); Radiation Oncology [place]inne [place] Malignant Neoplasm Of Lower Limb Basal C ell Carcinoma Left; in [place], [facility] [address] 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 [address] [place], [place] [phone] [phone] (Work) [phone] Social History Tobacco Use Types Packs/Day Years [...] I have ordered a scrotal ultrasound at [facility]. The patient will continue with treatment as planned. Signed by: Garrison Casas M.D. 05/08/2020 2:54 PM CDT [facility] Radiation Therapy Center [address] [place] [address] documented in this encounter Plan of Treatment [...]
--- OUTSIDE RECORDS SUMMARY | 2021-11-25 12:48 | XMS_ITS | Encounter Summary ---
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 [facility] Procedures Prior Auth Rad Tx [place] IMRT COMPLEX [address] [place] [address] Referral ID Status Reason Start Date Expiration Date Visits Requ ested Visits Authorized [id number] Closed 04/16/2020 04/16/2021 15 15 Encounter Details Date Type Department Care Team Description 04/30/2020 Hospital Encounter Department of Radiation Shaneka Natarajan I., Oncology in [place], [place] [address] [facility] [address] [place] [phone] Social History Tobacco Use Types Packs/Day Years [...]
--- OUTSIDE RECORDS SUMMARY | 2021-11-25 12:48 | XMS_ITS | Encounter Summary ---
:1940 Author Organization [facility] Address [address] [place] [address] Care Team Providers Name Role Phone Unavailable [...] Natarajan M.D. 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 [facility] [place] [facility] Procedures Management Visit [address] [place], [place] [address] Referral ID Status Reason Start Date Expiration Date Visits V isits Requested Authorized [id number] Canceled 04/10/2020 04/10/2021 5 5 Encounter Details Date Type Department Care Team Description 05/01/2020 Hospital Encounter Department of Bethany Natarajan 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; in [place], [facility] [place] [facility] Malignant Neoplasm Of Lower Limb Basal C ell Carcinoma Right [place], [place] [address] [facility] [address] [place], [place] [phone] (Work) [phone] Social History Tobacco Use Types Packs/Day Years Used Date Smoking Tobacco: Every Day Sex Assigned at Date Recorded Not on file documented as of this encounter Last Filed Vital Signs Vital Sign Reading Time Taken Comments Blood Pressure 148/82 05/01/2020 1:55 PM MAINTENANCE SERVICES DISPATCHER Pulse 86 05/01/2020 1:55 PM MAINTENANCE SERVICES DISPATCHER Temperature 36.3 ??C (97.3 ??F) 05/01/2020 1:55 PM MAINTENANCE SERVICES DISPATCHER Respiratory Rate - - Oxygen Saturation - [...] Quynh Moreno P.A.-C. M.SJhon 05/01/2020 2:25 PM MAINTENANCE SERVICES DISPATCHER TENANCE SERVICES DISPATCHER Associated attestation - Bethany Natarajan M.D. - 05/01/2020 4:43 PM MAINTENANCE SERVICES DISPATCHER I saw and evaluated the patient and [...]
--- OUTSIDE RECORDS SUMMARY | 2021-11-25 12:48 | XMS_ITS | Encounter Summary ---
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 [facility] Procedures Prior Auth Rad Tx [place] IMRT COMPLEX [address] [place] [address] Referral ID Status Reason Start Date Expiration Date Visits Requ ested Visits Authorized [id number] Closed 04/16/2020 04/16/2021 15 15 Encounter Details Date Type Department Care Team Description 05/01/2020 Hospital Encounter Department of Radiation Shaneka Natarajan I., Oncology in [place], [place] [address] [facility] [address] [place] [phone] Social History Tobacco Use Types Packs/Day Years [...]
--- OUTSIDE RECORDS SUMMARY | 2021-11-25 12:48 | XMS_ITS | Encounter Summary ---
:[address] 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 [facility] Procedures Prior Auth Rad Tx [place] IMRT COMPLEX [address] [place] [address] Referral ID Status Reason Start Date Expiration Date Visits Requ ested Visits Authorized [id number] Closed 04/16/2020 04/16/2021 15 15 Encounter Details Date Type Department Care Team Description 04/29/2020 Hospital Encounter Department of Radiation Shaneka Natarajan I., Oncology in [place], [place]in[place] [address] [facility] [address] [place] [phone] Social History Tobacco Use Types Packs/Day Years [...]
--- OUTSIDE RECORDS SUMMARY | 2021-11-25 12:49 | XMS_ITS | Encounter Summary ---
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; Radiation Oncology [place] Adhikari 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; in [place], [address] [place] [address] Malignant Neoplasm Of Lower Limb Basal C ell Carcinoma Right [place], [place] [address] [facility] [address] [place], [place] [phone] (Work) [phone] Social History Tobacco Use Types Packs/Day Years Used Date Smoking Tobacco: Every Day Sex Assigned at Date Recorded Not on file documented as of this encounter Last Filed Vital Signs Vital Sign Reading Time Taken Comments Blood Pressure 156/86 04/26/2020 2:31 PM LEARNING PROGRAM MANAGER Pulse 92 04/26/2020 2:31 PM LEARNING PROGRAM MANAGER Temperature 36.9 ??C (98.5 ??F) 04/26/2020 2:31 PM LEARNING PROGRAM MANAGER Respiratory Rate - - Oxygen Saturation - - Inhaled Oxygen Concentration - - Weight 95.5 kg (210 lb 8.6 oz) 04/26/2020 2:31 PM LEARNING PROGRAM MANAGER Height - - Body Mass Index [...] 700 1400 3500 04/24/2020 04/25/2020 1 F1_RTInguinal 385 974 3263 04/24/2020 04/25/2020 1 F1_LT Leg 016 685 5096 04/24/2020 04/25/2020 1 Course Summary 04/24/2020 04/25/2020 [...] by: Deedee Fry R.N. 04/26/2020 2:54 PM LEARNING PROGRAM MANAGER ATTESTATION FOR MANAGEMENT VISIT I saw and evaluated the patient and participated in the gregory portions of the service as noted above. I reviewed the documentation of Ms. Deedee Fry RN and agree with the findings and plan. The patient appears well on exam. We will continue with radiation as planned and monitor weekly. Bethany Natarajan M.D., 04/26/2020 NING PROGRAM MANAGER documented in this encounter Plan of [...]
--- OUTSIDE RECORDS SUMMARY | 2021-11-25 12:49 | XMS_ITS | Encounter Summary ---
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 [facility] Procedures Prior Auth Rad Tx [place] IMRT COMPLEX [address] [place] [address] Referral ID Status Reason Start Date Expiration Date Visits Requ ested Visits Authorized [id number] Closed 04/16/2020 04/16/2021 15 15 Encounter Details Date Type Department Care Team Description 04/25/2020 Hospital Encounter Department of Radiation Shaneka Natarajan I., Oncology in [place], [place]in[place] [address] [facility] [address] [place] [phone] Social History Tobacco Use Types Packs/Day Years [...]
--- OUTSIDE RECORDS SUMMARY | 2021-11-25 12:49 | XMS_ITS | Encounter Summary ---
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 [facility] Procedures Prior Auth Rad Tx [place] IMRT COMPLEX [address] [place] [address] Referral ID Status Reason Start Date Expiration Date Visits Requ ested Visits Authorized [id number] Closed 04/16/2020 04/16/2021 15 15 Encounter Details Date Type Department Care Team Description 04/24/2020 Hospital Encounter Department of Radiation Shaneka Natarajan I., Oncology in [place], Corinne [place] [address] [facility] [address] [place] [phone] Social History Tobacco Use Types Packs/Day Years [...]
--- OUTSIDE RECORDS SUMMARY | 2021-11-25 12:49 | XMS_ITS | Encounter Summary ---
:1940 Author Organization [facility] Address [address] [place] [address] Care Team Providers Name Role Phone Unavailable [...] 04/16/2020 1:25 PM Re sults for this AUTO RADIO MECHANIC procedure are i n the results section. documented in this encounter Results Pelvis-Oncology Image Exam (04/16/2020 1:25 PM AUTO RADIO MECHANIC) Specimen (Source) Anatomical Collection Method Collection Time Re ceived Time Location / / Volume Laterality 04/16/2020 1:25 PM AUTO RADIO MECHANIC Narrative IIMS - 04/16/2020 1:28 PM AUTO RADIO MECHANIC This order has been created and auto-finalized [...]
--- OUTSIDE RECORDS SUMMARY | 2021-11-25 12:49 | XMS_ITS | Encounter Summary ---
:1940 Author Organization [facility] Address [address] [place] [address] Care Team Providers Name Role Phone Unavailable [...] Onc Treatment Planning CT Simulation [address] [place], [place] [address] Referral ID Status Reason Start Date Expiration Date Visits Requ ested Visits Authorized [id number] Closed 04/10/2020 04/10/2021 1 1 ING MACHINE OPERATOR RESISTANCE Reason for Visit Radiation Therapy (Routine) - [...] Onc Treatment Planning CT Simulation [address] [place], [place] [address] Referral ID Status Reason Start Date Expiration Date Visits Requ ested Visits Authorized [id number] Closed 04/10/2020 04/10/2021 1 1 Encounter Details Date Type Department Care Team Description 04/16/2020 Hospital Encounter Department of Bethany Natarajan Neoplasm Of Lower Limb Basal Cell Carcinoma Left; Radiation Oncology [place] Adhikari 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; in [place], [address] [place] [address] Malignant Neoplasm Of Lower Limb Basal C ell Carcinoma Right [place], [place] [address] [facility] [address] [place], [place] [phone] (Work) [phone] Social History Tobacco Use Types Packs/Day Years [...] planning. CT images were transferred to the [employer] AI treatment planning system, after a reference isocenter was determined and marked. Segmentation and treatment planning will take place priorto treatment delivery. Patient set up and imaging was appropriate and completed without incident. Materials And Processes Manager use:No ING MACHINE OPERATOR RESISTANCE documented in this encounter Plan of Treatment Not on filedocumented as of this encounter Procedures Procedure Name Priority Date/Time Associated Comments Diagnosis INITIAL RAD ONC Routine 04/16/2020 2:00 PM Malignant Neoplasm Results for this TREATMENT PLANNING WELDING MACHINE OPERATOR RESISTANCE Of Lower Limb Basal pr ocedure are in CT SIMULATION Cell Carcinoma L eft the results Malignant Neoplasm section. 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 04/16/2020 ??4:02 PM Initial Rad Onc Treatment Planning CT Si mulation Date/Time: 04/16/2020 3:57 PM Performed by: Bethany Natarajan M.D. Authorized by: Bethany Natarajan M.D. Bethany Natarajan M.D. RADIATION ONCOLOGY ORDERABLE S Performing Organization Address City/State/ZIP Code Phon e Number [place] documented in this encounter Visit Diagnoses Diagnosis 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
--- OUTSIDE RECORDS SUMMARY | 2021-11-25 12:49 | XMS_ITS | Encounter Summary ---
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 [facility] Procedures Prior Auth Rad Tx [place] IMRT COMPLEX [address] [place] [address] Referral ID Status Reason Start Date Expiration Date Visits Requ ested Visits Authorized [id number] Closed 04/16/2020 04/16/2021 15 15 Encounter Details Date Type Department Care Team Description 04/26/2020 Hospital Encounter Department of Radiation Shaneka Natarajan I., Oncology in [place], [place] [address] [facility] [address] [place] [phone] Social History Tobacco Use Types Packs/Day Years [...]
--- OUTSIDE RECORDS SUMMARY | 2021-11-25 12:49 | XMS_ITS | Encounter Summary ---
:1940 Author Organization [facility] Address [address] [place] [address] Care Team Providers Name Role Phone Unavailable [...] 04/16/2020 1:28 PM Re sults for this JACKER procedure are i n the results section. documented in this encounter Results Leg-Oncology Image Exam (04/16/2020 1:28 PM JACKER) Specimen (Source) Anatomical Collection Method Collection Time Re ceived Time Location / / Volume Laterality 04/16/2020 1:25 PM JACKER Narrative IIMS - 04/16/2020 1:28 PM JACKER This order has been created and auto-finalized [...]
--- OUTSIDE RECORDS SUMMARY | 2021-11-25 12:49 | XMS_ITS | Encounter Summary ---
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 [facility] Procedures Prior Auth Rad Tx [place] IMRT COMPLEX [address] [place], [place] [address] Referral ID Status Reason Start Date Expiration Date Visits Requ ested Visits Authorized [id number] Closed 04/16/2020 04/16/2021 15 15 DINATOR OF EVALUATION Encounter Details Date Type Department Care Team Description 04/16/2020 Orders Only Department of Bethany Natarajan N eoplasm Of Radiation Oncology in [place] Adhikari Lower Limb Squamous [place], [facility] [address] [facility] Cell Carcinoma Left [address] [place], [place] (Primary Dx) [place] [phone] Social History Tobacco Use Types Packs/Day Years [...]
--- OUTSIDE RECORDS SUMMARY | 2021-11-25 12:49 | XMS_ITS | Encounter Summary ---
:1940 Author Organization [facility] Address [address] [place] [address] Care Team Providers Name Role Phone Unavailable [...] 12:35 Result s for this EXAM PM FINANCE INTERN procedure are i n the results section. documented in this encounter Results DERMATOLOGY IMAGE EXAM (02/12/2017 12:35 PM FINANCE INTERN) Specimen (Source) Anatomical Collection Method Collection Time Re ceived Time Location / / Volume Laterality 02/12/2017 12:00 PM FINANCE INTERN Narrative IIMS - 02/12/2017 2:50 PM FINANCE INTERN This order has been created and auto-finalized [...]
--- OUTSIDE RECORDS SUMMARY | 2021-11-25 12:49 | XMS_ITS | Encounter Summary ---
:1940 Author Organization [facility] Address [address] [place] [address] Care Team Providers Name Role Phone Unavailable Primary Care Provider Unavailable Reason for Visit Appointment Request (Routine) - Closed Specialty Diagnoses / Procedures Referred By Contact Refer red To Contact Radiation Oncology Diagnoses Malignant Neoplasm Of Skin Basal Cell Carcinoma Malignant Neoplasm Of Skin Squamous Cell Carcinoma Annita Jay M.D. 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 (Primary Dx); Radiation Oncology [place] Adhikari Malignant Neoplasm Of Lower Limb Basal C ell Carcinoma Right; in [address] 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 [place], [place] [address] [facility] [address] [place], [place] [phone] (Work) [phone] Social History Tobacco Use Types Packs/Day Years Used Date Smoking Tobacco: Every Day Sex Assigned at Date Recorded Not on file documented as of this encounter Last Filed Vital Signs Vital Sign Reading Time Taken Comments Blood Pressure 124/76 04/16/2020 12:50 PM BRUSH FINISHER Pulse 93 04/16/2020 12:50 PM BRUSH FINISHER Temperature 37.2 ??C (99 ??F) 04/16/2020 12:50 PM BRUSH FINISHER Respiratory Rate - - Oxygen Saturation - - Inhaled Oxygen Concentration - - Weight 95.5 kg (210 lb 8.6 oz) 04/16/2020 12:50 PM BRUSH FINISHER Height - - Body Mass Index - [...] TO FIND 200 each. Ibuprofen PM 0 / warfarin (COUMADIN) 4 mg Take one-half tablet [...] with the patient and is as follows: 1January 08, 2020: Appointment Dr. Marla Knott for [...] surgery, nose SOCIAL HISTORY He lives in [place], [place]. He lives at [place] in an apartment. He is single. 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 He is mobile with [...] Photos were taken and are available in Qreads after obtaining consent. 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 04/16/2020 4:52 PM BRUSH FINISHER Radiation Oncology [facility] [address] [place], [place] [phone] H FINISHER documented in this encounter Miscellaneous Notes Addendum Note - Mame Amezquita - 04/16/2020 1:00 PM BRUSH FINISHER Encounter addended by: Mame Amezquita on: 04/17/2020 8:34 AM Actions taken: Letter saved H FINISHER documented in this encounter Plan of Treatment Not on filedocumented as of this encounter Visit Diagnoses Diagnosis Malignant Neoplasm Of Lower Limb Basal C ell Carcinoma Left - Primary Malignant Neoplasm Of Lower Limb Basal C ell Carcinoma Right 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
--- OUTSIDE RECORDS SUMMARY | 2021-11-25 12:49 | XMS_ITS | Encounter Summary ---
:1940 Author Organization [facility] Address [address] [place] [address] Care Team Providers Name Role Phone Unavailable Primary Care Provider Unavailable Reason for Referral Specialty Diagnoses / Procedures Referred By Contact Refer red To Contact Bethany Natarajan M.D. 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 a [address] [facility] Malignant Neoplasm Of Lower Limb Basal C ell Carcinoma Right [address] [place] [address] [phone] Social History Tobacco Use Types Packs/Day Years [...] Treatment Planning CT Simulation (04/16/2020 2:00 PM WHARF TENDER) Specimen (Source) Anatomical Location Collection Method / Collectio n Time Received Time / Laterality Volume Narrative LAYO METZ - 04/16/2020 2:00 PM WHARF TENDER Coral Alonso RTT ? 04/16/2020 ??4:02 PM Initial Rad Onc Treatment Planning CT Si mulation Date/Time: 04/16/2020 3:57 PM Performed by: Bethany Natarajan M.D. Authorized by: Bethany Natarajan M.D. Bethany Natarajan M.D. RADIATION ONCOLOGY ORDERABLE S Performing Organization Address City/State/ZIP Code Phon e Number [place] documented in this encounter [...]
--- OUTSIDE RECORDS SUMMARY | 2021-11-25 12:49 | XMS_ITS | Encounter Summary ---
:1940 Author Organization [facility] Address [address] [place] [address] Care Team Providers Name Role Phone Unavailable Primary Care Provider Unavailable Reason for Visit Reason Comments Lab Monitoring Encounter Details Date Type Department Care Team Description 04/19/2020 Documentation Department of Radiation Deedee Fry, Lab Monitoring Oncology in [facility] [address] [facility] [address] [place] [phone] (Wo rk) Social History Tobacco Use Types Packs/Day Years Used Date Smoking Tobacco: Every Day Sex Assigned at Date Recorded Not on file documented as of this encounter Progress Notes Deedee Fry, RJhonN. - 04/19/2020 10:39 AM CST Lab result entered in IGRAPH OPERATOR documented in this encounter Plan of Treatment Not on filedocumented as of this encounter Procedures Procedure Name Priority Date/Time Associated Diagnosis Comme nts LABEXT SARS Routine 04/17/2020 12:00 AM Results for this CORONAVIRUS-2 MULTIGRAPH OPERATOR procedure are in (COVID-19) RNA the results section. documented in this encounter Results EXT SARS Coronavirus-2 (COVID-19) RNA (04/17/2020 12:00 AM MULTIGRAPH OPERATOR) [facility] Method Time Signature EXT Undetected Inconclus [facility] SARS-CoV-2 sylvia, LABORATORIES - RNA Indetermi [facility] Invalid, Negative, Not Detected, Undetecte d, Other (specify in comment) Specimen (Source) Anatomical Location Collection Method / Collectio n Time Received Time / Laterality Volume Swab 04/17/2020 Bethany Natarajan M.D. LAB MICROBIOLOGY - GENERAL O RDERABLES Performing Organization Address City/State/ZIP Code Phon e Number [facility] LABORATORIES - [address] [place], [place] [address] [facility] documented in this encounter Visit Diagnoses Not on filedocumented in this encounter
--- OUTSIDE RECORDS SUMMARY | 2021-11-25 12:49 | XMS_ITS | Encounter Summary ---
:1940 Author Organization [facility] Address [address] [place] [address] Care Team Providers Name Role Phone Unavailable Primary Care Provider Unavailable Encounter Details Date Type Department Care Team Description 02/12/2017 Hospital Encounter HX RST DERM SURG OP Avni Gaffney [facility] M.D. [address] [place] [address] (Wo rk) Social History Tobacco Use Types Packs/Day Years Used Date Smoking Tobacco: Never Assessed Sex Assigned at Date Recorded Not on file documented as of this encounter Last Filed Vital Signs Vital Sign Reading Time Taken Comments Blood Pressure 141/85 02/12/2017 8:05 AM POT FIREMAN Vital sign result from Clinical Notes. Pulse 89 02/12/2017 8:05 AM POT FIREMAN Vital sign result from Clinical Notes. Temperature [...]
--- OUTSIDE RECORDS SUMMARY | 2021-11-25 12:49 | XMS_ITS | Encounter Summary ---
:1940 Author Organization [facility] Address [address] [place] [address] Care Team Providers Name Role Phone Unavailable [...] 04/16/2020 1:28 PM Re sults for this PAPER CUTTING MACHINE OPERATOR procedure are i n the results section. documented in this encounter Results Leg-Oncology Image Exam (04/16/2020 1:28 PM PAPER CUTTING MACHINE OPERATOR) Specimen (Source) Anatomical Collection Method Collection Time Re ceived Time Location / / Volume Laterality 04/16/2020 1:25 PM PAPER CUTTING MACHINE OPERATOR Narrative [facility] - 04/16/2020 1:28 PM PAPER CUTTING MACHINE OPERATOR This order has been created and auto-finalized to support the import of images acquired without order. The clini arahs documentation to support these images can be found on the encounter monika t produced images. Provider Not In System IMG NON RAD IMAGING PROCEDUR ES Performing Organization Address City/State/ZIP Code Phon e Number [facility] NA documented in this encounter Visit Diagnoses Not on filedocumented in this encounter
--- OUTSIDE RECORDS SUMMARY | 2021-11-25 12:49 | XMS_ITS | Encounter Summary ---
:1940 Author Organization [facility] Address [address] [place] [address] Care Team Providers Name Role Phone Unavailable [...] 12:30 Result s for this EXAM PM MEAT TEAM MEMBER procedure are i n the results section. documented in this encounter Results DERMATOLOGY IMAGE EXAM (02/12/2017 12:30 PM MEAT TEAM MEMBER) Specimen (Source) Anatomical Collection Method Collection Time Re ceived Time Location / / Volume Laterality 02/12/2017 12:00 PM MEAT TEAM MEMBER Narrative [facility] - 02/12/2017 2:50 PM MEAT TEAM MEMBER This order has been created and auto-finalized [...]
--- OUTSIDE RECORDS SUMMARY | 2021-11-25 12:50 | XMS_ITS | Encounter Summary ---
:1940 Author Organization [facility] Address [address] [place] [address] Care Team Providers Name Role Phone Unavailable [...] 12:10 Result s for this EXAM PM FOUNDRY PATTERNMAKER procedure are i n the results section. documented in this encounter Results DERMATOLOGY IMAGE EXAM (02/12/2017 12:10 PM FOUNDRY PATTERNMAKER) Specimen (Source) Anatomical Collection Method Collection Time Re ceived Time Location / / Volume Laterality 02/12/2017 12:00 PM FOUNDRY PATTERNMAKER Narrative [facility] - 02/12/2017 2:49 PM FOUNDRY PATTERNMAKER This order has been created and auto-finalized [...]
--- OUTSIDE RECORDS SUMMARY | 2021-11-25 12:50 | XMS_ITS | Encounter Summary ---
:1940 Author Organization [facility] Address [address] [place] [address] Care Team Providers Name Role Phone Unavailable [...] 12:00 Result s for this EXAM PM MARKETING INTELLIGENCE MANAGER procedure are i n the results section. documented in this encounter Results DERMATOLOGY IMAGE EXAM (01/19/2017 12:00 PM MARKETING INTELLIGENCE MANAGER) Specimen (Source) Anatomical Location Collection Method / Collectio n Time Received Time / Laterality Volume Narrative [facility] - 01/19/2017 4:19 PM MARKETING INTELLIGENCE MANAGER This order has been created and [...]
--- OUTSIDE RECORDS SUMMARY | 2021-11-25 12:50 | XMS_ITS | Encounter Summary ---
:1940 Author Organization [facility] Address [address] [place] [address] Care Team Providers Name Role Phone Unavailable [...] 12:05 Result s for this EXAM PM DAY CAMP UNIT LEADER procedure are i n the results section. documented in this encounter Results DERMATOLOGY IMAGE EXAM (02/12/2017 12:05 PM DAY CAMP UNIT LEADER) Specimen (Source) Anatomical Collection Method Collection Time Re ceived Time Location / / Volume Laterality 02/12/2017 12:00 PM DAY CAMP UNIT LEADER Narrative IIM[facility] - 02/12/2017 2:49 PM DAY CAMP UNIT LEADER This order has been created and auto-finalized [...]
--- OUTSIDE RECORDS SUMMARY | 2021-11-25 12:50 | XMS_ITS | Encounter Summary ---
:1940 Author Organization [facility] Address [address] [place] [address] Care Team Providers Name Role Phone Unavailable [...] 12:20 Result s for this EXAM PM SWIMMING TEACHER procedure are i n the results section. documented in this encounter Results DERMATOLOGY IMAGE EXAM (02/12/2017 12:20 PM SWIMMING TEACHER) Specimen (Source) Anatomical Collection Method Collection Time Re ceived Time Location / / Volume Laterality 02/12/2017 12:00 PM SWIMMING TEACHER Narrative [facility] - 02/12/2017 2:49 PM SWIMMING TEACHER This order has been created and auto-finalized [...]
--- OUTSIDE RECORDS SUMMARY | 2021-11-25 12:50 | XMS_ITS | Encounter Summary ---
:1940 Author Organization [facility] Address [address] [place] [address] Care Team Providers Name Role Phone Unavailable [...] 12:00 Result s for this EXAM PM STONE SAWYER procedure are i n the results section. documented in this encounter Results DERMATOLOGY IMAGE EXAM (02/12/2017 12:00 PM STONE SAWYER) Specimen (Source) Anatomical Collection Method Collection Time Re ceived Time Location / / Volume Laterality 02/12/2017 12:00 PM STONE SAWYER Narrative [facility]IM[facility] - 02/12/2017 2:49 PM STONE SAWYER This order has been created and auto-finalized to support the import of images acquired without order. The clini arsah documentation to support these images can be found on the encounter monika t produced images. Provider Not In System IMG NON RAD IMAGING PROCEDUR ES Performing Organization Address City/State/ZIP Code Phon e Number I[facility]S IIMS NA documented in this encounter Visit Diagnoses Not on filedocumented in this encounter
--- OUTSIDE RECORDS SUMMARY | 2021-11-25 12:50 | XMS_ITS | Encounter Summary ---
:1940 Author Organization [facility] Address [address] [place] [address] Care Team Providers Name Role Phone Unavailable [...] 12:15 Result s for this EXAM PM HYDRAULIC PILE HAMMER OPERATOR procedure are i n the results section. documented in this encounter Results DERMATOLOGY IMAGE EXAM (02/12/2017 12:15 PM HYDRAULIC PILE HAMMER OPERATOR) Specimen (Source) Anatomical Collection Method Collection Time Re ceived Time Location / / Volume Laterality 02/12/2017 12:00 PM HYDRAULIC PILE HAMMER OPERATOR Narrative IIM[facility] - 02/12/2017 2:49 PM HYDRAULIC PILE HAMMER OPERATOR This order has been created and [...]
== END 2021-11-25 12:46 | disposition home or self-care (01) ==
LOC: WOUND 12:45
PROVIDERS: PCP Family Medicine; Visit Provider Nurse Practitioner Family
DX: L59.8 Other specified disorders of the skin and subcutaneous tissue related to radiation (principal)
CPT/HCPCS: 99212

== ENCOUNTER 2021-12-02 12:45 | Outpatient (CLI) | payer OTHER, SELFPAY ==
--- OUTSIDE RECORDS SUMMARY | 2021-12-02 12:47 | XMS_ITS | Clinical Summary ---
:1940 Author Organization [facility] Address [address] [place] [address] Care Team Providers Name Role Phone Unavailable Primary Care Provider Unavailable Source Comments Patient records contain information from all sites at [facility]. For routine questions regarding patient records, call [phone] during business hours, M-F 8:00 AM - 5:00 PM Central Time. Record requests for emergency care only can be directed to [phone] at any time.[facility] Allergies Active Allergy Reactions Severity Noted Date [...] Phone Addre ss Type Group [facility] [id number] 2021-Present [phone] [address] [place] [address]
--- OUTSIDE RECORDS SUMMARY | 2021-12-02 12:47 | XMS_ITS | Encounter Summary ---
:1940 Author Organization [facility] Address [address] [place] [address] Care Team Providers Name Role Phone Unavailable Primary Care Provider Unavailable Reason for Referral Outpatient (Routine) - Closed Specialty Diagnoses / Procedures Referred By Contact Refer jose luis To Contact Radiation Oncology Bethany Natarajan [facility] Feli Gomez M.D. [address] [place] [phone] Referral ID Status Reason Start Date Expiration Date Visits Requ ested Visits Authorized [id number] Closed 05/28/2020 05/28/2021 1 1 Scheduling Instructions 2-3 weeks with CECY and Deedee Reason for Visit Outpatient (Routine) - Closed Specialty Diagnoses / Procedures Referred By Contact Sofi amaya To Contact Radiation Oncology Bethany Natarajan [facility] Feli Gomez M.D. [address] [place] [phone] Referral ID Status Reason Start Date Expiration Date Visits Requ ested Visits Authorized [id number] Closed 05/28/2020 05/28/2021 1 1 Encounter Details Date Type Department Care Team Description 06/11/2020 Hospital Encounter Department of Bethany Natarajan (Primary Dx) Radiation Oncology Corinne Adhikari in [place], [address] [place] [address] [address] [facility] [address] [place], [place] [phone] (Work) [phone] Social History Tobacco Use Types Packs/Day Years [...] a 8 out of 10.He takes 1 Sunspot in the morning and 1 at bedtime. [...] will send through prescription refill on his Sunspot to his preferred pharmacy today. Patient is to not exceed 3200 mg of Ibuprofen a day. We encouraged patient to trial warm compresses for acute right eye mattering. We will send through referral to [facility]. We will see Mr. Tl Lugo in a follow-up visit in late July. The patient was told to contact us sooner with questions or concerns. He verbally expressed his understanding of the plan. Signed by: Deedee Fry R.N. 06/11/2020 1:09 PM CDT [facility] [address] [place] [address] documented in this encounter Plan of Treatment Scheduled Referrals Name Type Priority Associated Order Schedule Diagnoses Radiation Oncology Outpatient Referral Routine On ce for 1 office visit Occurrences sta rting (clinic) 06/11/2020 unti l 06/11/2020 documented as of this encounter Visit Diagnoses Diagnosis Red Eye - Primary documented in this encounter
--- OUTSIDE RECORDS SUMMARY | 2021-12-02 12:47 | XMS_ITS | Encounter Summary ---
:1940 Author Organization [facility] Address [address] [place] [address] Care Team Providers Name Role Phone Unavailable Primary Care Provider Unavailable Reason for Visit Reason Comments Med Refill Encounter Details Date Type Department Care Team Description 07/09/2020 Clinical Communication Department of Bethany Natarajan ed Refill Radiation Oncology in [place] Adhikari [facility] [address] [facility] [address] [place] [phone] Social History Tobacco Use Types Packs/Day Years [...] would like a refill today. Phone number: [phone] Is it okay to leave a voicemail on answering machine with test results? Yes Pharmacy (if medication related): [facility] [address] [place] [address] [facility] [address] [facility] [id number] Paula Hall documented in this encounter Plan of Treatment Not on filedocumented as of this encounter Visit Diagnoses Not on filedocumented in this encounter
--- OUTSIDE RECORDS SUMMARY | 2021-12-02 12:47 | XMS_ITS | Encounter Summary ---
:1940 Author Organization [facility] Address [address] [place] [address] Care Team Providers Name Role Phone Unavailable Primary Care Provider Unavailable Reason for Visit Reason Comments Med Refill Encounter Details Date Type Department Care Team Description 08/08/2020 Clinical Communication Department of Travis Hall Refjoanne Radiation [facility] [place] [facility] [place] [address] [place] [phone] Social History Tobacco Use Types Packs/Day Years Used Date Smoking Tobacco: Every Day Sex Assigned at Date Recorded Not on file documented as of this encounter Miscellaneous Notes Telephone Encounter - Deedee Fry R.N. - 08/08/2020 1:06 PM CDT Information Discussed I called and left voicemail on patient's phone requesting call back. Patient reported that he was taking Dumfries twice a day at his last in office visit with us. PLAN Dr. Natarajan and I will send through refill on Dumfries to get him through until August 16, 2020, when he is scheduled for follow up with Dr. Natarajan in [place]. Disposition/Recommendation: I requested call back, refill will [...] can be done or not Phone number: [phone] Is it okay to leave a voicemail on answering machine with test results? Yes Pharmacy (if medication related): [facility] [address] [place] [phone] Paula Hall documented in this encounter Plan of Treatment Not on filedocumented as of this encounter Visit Diagnoses Not on filedocumented in this encounter
--- OUTSIDE RECORDS SUMMARY | 2021-12-02 12:47 | XMS_ITS | Encounter Summary ---
:1940 Author Organization [facility] Address [address] [place] [address] Care Team Providers Name Role Phone Unavailable Primary Care Provider Unavailable Reason for Referral Specialty Diagnoses / Procedures Referred By Contact Refer red To Contact Bethany Natarajan M.D. [facility] [address] [place] [phone] Referral ID Status Reason Start Date Expiration Date Visits Requ ested Visits Authorized OR SCHEDULER Encounter Details Date Type Department Care Team Description 04/30/2020 - Hospital Encounter Department of Aramis Natarajan M.D. [address] [place] [phone] Malignant Neoplasm Of Lower Limb Basal C ell Carcinoma Left; 05/17/2020 Radiation Oncology Deedee Fry R.N. 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
--- OUTSIDE RECORDS SUMMARY | 2021-12-02 12:47 | XMS_ITS | Encounter Summary ---
:1940 Author Organization [facility] Address [address] [place] [address] Care Team Providers Name Role Phone Unavailable Primary Care Provider Unavailable Encounter Details Date Type Department Care Team Description 07/10/2020 Clinical Communication Department of Bethany Natarajan Radiation Oncology in [place] Adhikari [facility] [address] [facility] [address] [place] [phone] Social History Tobacco Use Types Packs/Day Years [...] informed him that a prescription for the [place] has been sent to the [facility] in [place]. Phone number: [phone] Is it okay to leave a voicemail on answering machine with test results? Yes Pharmacy (if medication related): N/A Elif Parkinson documented in this encounter Plan of Treatment Not on filedocumented as of this encounter Visit Diagnoses Not on filedocumented in this encounter
--- OUTSIDE RECORDS SUMMARY | 2021-12-02 12:47 | XMS_ITS | Encounter Summary ---
:1940 Author Organization [facility] Address [address] [place] [address] Care Team Providers Name Role Phone Unavailable Primary Care Provider Unavailable Encounter Details Date Type Department Care Team Description 11/01/2020 Orders Only [facility] Sa greyson Moore M.D. [address] [place], [place] [phone] (Wo rk) Social History Tobacco Use Types Packs/Day Years Used Date Smoking Tobacco: Every Day Sex Assigned at Date Recorded Not on file documented as of this encounter Plan of Treatment Not on filedocumented as of this encounter Visit Diagnoses Not on filedocumented in this encounter
--- OUTSIDE RECORDS SUMMARY | 2021-12-02 12:47 | XMS_ITS | Encounter Summary ---
:1940 Author Organization [facility] Address [address] [place] [address] Care Team Providers Name Role Phone Unavailable Primary Care Provider Unavailable Reason for Referral Outpatient (Routine) - Closed Specialty Diagnoses / Procedures Referred By Contact Refer red To Contact Radiation Oncology Bethany Natarajan [facility] Feli Gomez M.D. [address] [place] [address] Referral ID Status Reason Start Date Expiration Date Visits Requ ested Visits Authorized [id number] Closed 05/28/2020 05/28/2021 1 1 Scheduling Instructions 2-3 weeks with CECY and Deedee Outpatient (Routine) - Closed Specialty Diagnoses / Procedures Referred By Contact Refer red To Contact Radiation Oncology Bethany Natarajan [facility] Feli Gomez M.D. [address] [place] [address] Referral ID Status Reason Start Date Expiration Date Visits Requ ested Visits Authorized [id number] Closed 05/15/2020 05/15/2021 1 1 Scheduling Instructions Deedee first to assess skin Reason for Visit Outpatient (Routine) - Closed Specialty Diagnoses / Procedures Referred By Contact Refer red To Contact Radiation Oncology Bethany Natarajan [facility] Feli Gomez M.D. 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 05/28/2020 1:16 PM CDT [facility] [address] [place] [address] ATTESTATION FOR FOLLOW-UP VISIT I saw and [...]
--- OUTSIDE RECORDS SUMMARY | 2021-12-02 12:47 | XMS_ITS | Clinical Summary ---
:1940 Author Organization [facility] [place] [address] Care Team Providers Name Role Phone Alfredo [...] was well controlled her e on dilaudid STRIPPER LATEX on following regimen: 0 04/16/2014 Active mg/mL inj LOADING DOSE: 0.2 mg for 1 dose STRIPPER LATEX BOLUS DOSE: 0.2-0.3 mg LOCKOUT INTERVAL: 10 [...] 3-15-10 05/06/2009 Cardiomyopathy , ischemic; old inf IN 05/02/2009 Overview: Per preop, EF of 39% [...] Comments Blood Pressure 123/73 04/16/2014 2:19 PM COSMETIC COUNSELOR Pulse 115 04/16/2014 2:19 PM COSMETIC COUNSELOR Temperature 38.3 ??C (100.9 ??F) 04/16/2014 3:30 PM COSMETIC COUNSELOR Respiratory Rate 20 04/16/2014 2:19 PM COSMETIC COUNSELOR Oxygen Saturation 94% 04/16/2014 2:19 PM COSMETIC COUNSELOR Inhaled Oxygen Concentration - - Weight 86.1 kg (189 lb 13.1 oz) 04/16/2014 5:00 AM COSMETIC COUNSELOR Height 180.3 cm (5' 10.98) 04/02/2014 12:00 AM COSMETIC COUNSELOR Body Mass Index 26.49 04/02/2014 12:00 AM COSMETIC COUNSELOR Plan of Treatment Health Maintenance Due Date [...] 65+ 10/23/2021 Medical Devices Implanted Type Area Motion Picture Projectionist Device Shelf Model / Identifier Expiration Serial / Date Lot Screw Self Drilling 3.5x15mm - [id number] N/A: Spine SOFAMOR DANEK [id number] / Implanted: Qty: 4 on 06/24/2010 at [facility] / Humeral Tray Left: [id number] / Implanted: Qty: 1 on 03/17/2012 at [facility] Shoulder / [id number] Description: HUMERAL TRAY Explanted Type Area Motion Picture Projectionist Device Shelf Model / Identifier Expiration Serial / Date Lot Patch Vasc 0.8x8cm Xenosure Biological Pericardial - [id number] Right: Lemaitre 0.8P8# / Explanted: Qty: 1 on 03/09/2014 at [facility] [employer] / [id number] Results Not on filefrom Last 3 Months Insurance Payer Benefit Plan / Subscriber ID Effective Dates Phone Addre ss Type Group MARICEL CONNELLY [facility] [id number] 2015-Present [address] [place] [address] Guarantor Name Account Type Relation to Date of Phone Bill ing Patient Address Tl Lugo Personal/Family Self 1940 [phone] (Home) [place] [address] Advance Directives Documents on File Type Date Recorded Patient It Consulting Director Explanati on Healthcare Directive 05/12/2009 Healthcare Directive 06/26/2010 Latest Code Status on File Code Status Date Activated Date Inactivated Comments Full Code 04/16/2014 2:21 PM Full Code 03/07/2014 8:16 PM 04/16/2014 2:21 PM Full Code 03/07/2014 12:01 PM 03/07/2014 8:16 PM Full Code 02/28/2014 6:12 AM 02/28/2014 11:11 PM Full Code 03/17/2012 12:44 PM 03/19/2012 4:35 PM Care Teams Supervising Law Enforcement Analyst Relationship Specialty Start Date End Date Alfredo Starr MD PCP - General 11/13/08
--- OUTSIDE RECORDS SUMMARY | 2021-12-02 12:47 | XMS_ITS | Encounter Summary ---
:1940 Author Organization [facility] Address [address] [place] [address] Care Team Providers Name Role Phone Unavailable Primary Care Provider Unavailable Reason for Visit Reason Comments Follow-up Encounter Details Date Type Department Care Team Description 10/30/2020 Clinical Communication Department of Bethany Natarajanzuhair Radiation Oncology in [place] Adhikari [facility] a [address] [place] [address] [place] [phone] Social History Tobacco Use Types Packs/Day Years [...] center to help with this. Phone number: [phone] Is it okay to leave a voicemail on answering machine with test results? No Pharmacy (if medication related): N/A Elif Parkinson documented in this encounter Plan of Treatment Not on filedocumented as of this encounter Visit Diagnoses Not on filedocumented in this encounter
--- OUTSIDE RECORDS SUMMARY | 2021-12-02 12:47 | XMS_ITS | Encounter Summary ---
:1940 Author Organization [facility] Address [address] [place] [address] Care Team Providers Name Role Phone Unavailable Primary Care Provider Unavailable Encounter Details Date Type Department Care Team Description 09/27/2020 Clinical Communication Department of Bethany Natarajan Radiation Oncology in [place] Adhikari [facility] [address] [facility] [address] [place] [phone] Social History Tobacco Use Types Packs/Day Years [...]
--- OUTSIDE RECORDS SUMMARY | 2021-12-02 12:47 | XMS_ITS ---
:1940 Author Organization [facility] Address [address] [place] [address] Care Team Providers Name Role Phone Unavailable [...] Elapsed Days Session Dose Total Dos e [id number] 05/15/2020 21 300 cGy 4,500 cGy [id number] 05/06/2020 12 425 cGy 3,825 cGy [id number] 04/26/2020 2 700 cGy 2,100 cGy
--- OUTSIDE RECORDS SUMMARY | 2021-12-02 12:48 | XMS_ITS | Encounter Summary ---
:1940 Author Organization [facility] Address [address] [place] [address] Care Team Providers Name Role Phone Unavailable [...] 12:20 Result s for this EXAM PM LOBBYIST procedure are i n the results section. documented in this encounter Results DERMATOLOGY IMAGE EXAM (02/12/2017 12:20 PM LOBBYIST) Specimen (Source) Anatomical Collection Method Collection Time Re ceived Time Location / / Volume Laterality 02/12/2017 12:00 PM LOBBYIST Narrative [facility] - 02/12/2017 2:49 PM LOBBYIST This order has been created and auto-finalized [...]
--- OUTSIDE RECORDS SUMMARY | 2021-12-02 12:48 | XMS_ITS | Encounter Summary ---
:1940 Author Organization [facility] Address [address] [place] [address] Care Team Providers Name Role Phone Unavailable [...] 12:25 Result s for this EXAM PM ALARM SERVICE TECHNICIAN procedure are i n the results section. documented in this encounter Results DERMATOLOGY IMAGE EXAM (02/12/2017 12:25 PM ALARM SERVICE TECHNICIAN) Specimen (Source) Anatomical Collection Method Collection Time Re ceived Time Location / / Volume Laterality 02/12/2017 12:00 PM ALARM SERVICE TECHNICIAN Narrative [facility] - 02/12/2017 2:50 PM ALARM SERVICE TECHNICIAN This order has been created and [...]
--- OUTSIDE RECORDS SUMMARY | 2021-12-02 12:48 | XMS_ITS | Encounter Summary ---
:1940 Author Organization [facility] Address [address] [place] [address] Care Team Providers Name Role Phone Unavailable [...] 12:10 Result s for this EXAM PM INNOVATION MANAGER procedure are i n the results section. documented in this encounter Results DERMATOLOGY IMAGE EXAM (02/12/2017 12:10 PM INNOVATION MANAGER) Specimen (Source) Anatomical Collection Method Collection Time Re ceived Time Location / / Volume Laterality 02/12/2017 12:00 PM INNOVATION MANAGER Narrative [facility] - 02/12/2017 2:49 PM INNOVATION MANAGER This order has been created and [...]
--- OUTSIDE RECORDS SUMMARY | 2021-12-02 12:48 | XMS_ITS | Encounter Summary ---
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 [facility] Procedures Prior Auth Rad Tx [place] IMRT COMPLEX [address] [place] [address] Referral ID Status Reason Start Date Expiration Date Visits Requ ested Visits Authorized [id number] Closed 04/16/2020 04/16/2021 15 15 Encounter Details Date Type Department Care Team Description 04/25/2020 Hospital Encounter Department of Radiation Shaneka Natarajan I., Oncology in [place], [place] [address] [facility] [address] [place] [phone] Social History Tobacco Use Types Packs/Day Years [...]
--- OUTSIDE RECORDS SUMMARY | 2021-12-02 12:48 | XMS_ITS | Encounter Summary ---
:1940 Author Organization [facility] Address [address] [place] [address] Care Team Providers Name Role Phone Unavailable [...] 04/16/2020 1:25 PM Re sults for this CLAIM PROFESSIONAL procedure are i n the results section. documented in this encounter Results Pelvis-Oncology Image Exam (04/16/2020 1:25 PM CLAIM PROFESSIONAL) Specimen (Source) Anatomical Collection Method Collection Time Re ceived Time Location / / Volume Laterality 04/16/2020 1:25 PM CLAIM PROFESSIONAL Narrative [facility] - 04/16/2020 1:28 PM CLAIM PROFESSIONAL This order has been created and auto-finalized [...]
--- OUTSIDE RECORDS SUMMARY | 2021-12-02 12:48 | XMS_ITS | Encounter Summary ---
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 [facility] Procedures Prior Auth Rad Tx [place] IMRT COMPLEX [address] [place] [address] Referral ID Status Reason Start Date Expiration Date Visits Requ ested Visits Authorized [id number] Closed 04/16/2020 04/16/2021 15 15 Encounter Details Date Type Department Care Team Description 04/30/2020 Hospital Encounter Department of Radiation Shaneka Natarajan I., Oncology in [place], [place]inne [place] [address] [facility] [address] [place] [phone] Social History Tobacco Use Types Packs/Day Years [...]
--- OUTSIDE RECORDS SUMMARY | 2021-12-02 12:48 | XMS_ITS | Encounter Summary ---
:1940 Author Organization [facility] Address [address] [place] [address] Care Team Providers Name Role Phone Unavailable Primary Care Provider Unavailable Encounter Details Date Type Department Care Team Description 05/15/2020 Hospital Encounter Department of Radiation Shaneka Natarajan I., Oncology in [facility] [address] [facility] [[email or web address] [address] [place] [phone] Social History Tobacco Use Types Packs/Day Years [...]
--- OUTSIDE RECORDS SUMMARY | 2021-12-02 12:48 | XMS_ITS | Encounter Summary ---
:1940 Author Organization [facility] Address [address] [place] [address] Care Team Providers Name Role Phone Unavailable [...] 12:35 Result s for this EXAM PM BALANCE STAFF STAKER procedure are i n the results section. documented in this encounter Results DERMATOLOGY IMAGE EXAM (02/12/2017 12:35 PM BALANCE STAFF STAKER) Specimen (Source) Anatomical Collection Method Collection Time Re ceived Time Location / / Volume Laterality 02/12/2017 12:00 PM BALANCE STAFF STAKER Narrative [facility] - 02/12/2017 2:50 PM BALANCE STAFF STAKER This order has been created and auto-finalized [...]
--- OUTSIDE RECORDS SUMMARY | 2021-12-02 12:48 | XMS_ITS | Encounter Summary ---
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 [facility] Procedures Prior Auth Rad Tx [place] IMRT COMPLEX [address] [place] [address] Referral ID Status Reason Start Date Expiration Date Visits Requ ested Visits Authorized [id number] Closed 04/16/2020 04/16/2021 15 15 Encounter Details Date Type Department Care Team Description 05/08/2020 Hospital Encounter Department of Radiation Shaneka Natarajan I., Oncology [place] [address] [facility] [address] [place] [phone] Social History Tobacco Use Types Packs/Day Years [...]
--- OUTSIDE RECORDS SUMMARY | 2021-12-02 12:48 | XMS_ITS | Encounter Summary ---
:1940 Author Organization [facility] Address [address] [place] [address] Care Team Providers Name Role Phone Unavailable [...] 04/16/2020 1:28 PM Re sults for this MULTINEEDLE SHIRRER procedure are i n the results section. documented in this encounter Results Leg-Oncology Image Exam (04/16/2020 1:28 PM MULTINEEDLE SHIRRER) Specimen (Source) Anatomical Collection Method Collection Time Re ceived Time Location / / Volume Laterality 04/16/2020 1:25 PM MULTINEEDLE SHIRRER Narrative [facility]IMS - 04/16/2020 1:28 PM MULTINEEDLE SHIRRER This order has been created and auto-finalized [...]
--- OUTSIDE RECORDS SUMMARY | 2021-12-02 12:48 | XMS_ITS | Encounter Summary ---
:1940 Author Organization [facility] Address [address] [place] [address] Care Team Providers Name Role Phone Unavailable [...] [facility] Procedures Management Visit [address] [place], [place] [address] Referral ID Status Reason Start Date Expiration Date Visits V isits Requested Authorized [id number] Canceled 04/10/2020 04/10/2021 5 5 Reason for [...] [facility] Procedures Management Visit [address] [place], [place] [address] Referral ID Status Reason Start Date Expiration Date Visits V isits Requested Authorized [id number] Canceled 04/10/2020 04/10/2021 5 5 Encounter Details Date Type Department Care Team Description 05/06/2020 Hospital Encounter Department of Garrison Casas 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
--- OUTSIDE RECORDS SUMMARY | 2021-12-02 12:48 | XMS_ITS | Encounter Summary ---
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 [facility] Procedures Prior Auth Rad Tx [place] IMRT COMPLEX [address] [place] [address] Referral ID Status Reason Start Date Expiration Date Visits Requ ested Visits Authorized [id number] Closed 04/16/2020 04/16/2021 15 15 Encounter Details Date Type Department Care Team Description 05/02/2020 Hospital Encounter Department of Radiation Shaneka Natarajan I., Oncology in [place] [address] [facility] [address] [place] [phone] Social History Tobacco Use Types Packs/Day Years [...]
--- OUTSIDE RECORDS SUMMARY | 2021-12-02 12:48 | XMS_ITS | Encounter Summary ---
:1940 Author Organization [facility] Address [address] [place] [address] Care Team Providers Name Role Phone Unavailable [...] Right Bethany Natarajan M.D. 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; Radiation Oncology [place] Adhikari 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; in [place], [address] [place] [address] Malignant Neoplasm Of Lower Limb Basal C ell Carcinoma Right [place], [place] [address] [facility] [address] [place], [place] [phone] (Work) [phone] Social History Tobacco Use Types Packs/Day Years Used Date Smoking Tobacco: Every Day Sex Assigned at Date Recorded Not on file documented as of this encounter Last Filed Vital Signs Vital Sign Reading Time Taken Comments Blood Pressure 156/86 04/26/2020 2:31 PM TRANSLITERATOR Pulse 92 04/26/2020 2:31 PM TRANSLITERATOR Temperature 36.9 ??C (98.5 ??F) 04/26/2020 2:31 PM TRANSLITERATOR Respiratory Rate - - Oxygen Saturation - - Inhaled Oxygen Concentration - - Weight 95.5 kg (210 lb 8.6 oz) 04/26/2020 2:31 PM TRANSLITERATOR Height - - Body Mass Index - [...] 700 1400 3500 04/24/2020 04/25/2020 1 F1_RTInguinal 413 183 9262 04/24/2020 04/25/2020 1 F1_LT Leg 607 061 3583 04/24/2020 04/25/2020 1 Course Summary 04/24/2020 04/25/2020 [...] by: Deedee Fry R.N. 04/26/2020 2:54 PM TRANSLITERATOR ATTESTATION FOR MANAGEMENT VISIT I saw and evaluated the patient and participated in the gregory portions of the service as noted above. I reviewed the documentation of Ms. Deedee Fry RN and agree with the findings and plan. The patient appears well on exam. We will continue with radiation as planned and monitor weekly. Bethany Natarajan M.D., 04/26/2020 SLITERATOR documented in this encounter Plan of Treatment [...]
--- OUTSIDE RECORDS SUMMARY | 2021-12-02 12:48 | XMS_ITS | Encounter Summary ---
:1940 Author Organization [facility] Address [address] [place] [address] Care Team Providers Name Role Phone Unavailable [...] Onc Treatment Planning CT Simulation [address] [place], [place] [address] Referral ID Status Reason Start Date Expiration Date Visits Requ ested Visits Authorized [id number] Closed 04/10/2020 04/10/2021 1 1 MANAGER Reason for Visit Radiation Therapy (Routine) [...] Onc Treatment Planning CT Simulation [address] [place], [place] [address] Referral ID Status Reason Start Date Expiration Date Visits Requ ested Visits Authorized [id number] Closed 04/10/2020 04/10/2021 1 1 Encounter Details Date Type Department Care Team Description 04/16/2020 Hospital Encounter Department of Bethany Natarajan 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 [address] [place], [place] [phone] (Work) [phone] Social History Tobacco Use Types Packs/Day Years [...] planning. CT images were transferred to the [employer] treatment planning system, after a reference isocenter was determined and marked. Segmentation and treatment planning will take place priorto treatment delivery. Patient set up and imaging was appropriate and completed without incident. Coil Connector use:No MANAGER documented in this encounter Plan of Treatment Not on filedocumented as of this encounter Procedures Procedure Name Priority Date/Time Associated Comments Diagnosis INITIAL RAD ONC Routine 04/16/2020 2:00 PM Malignant Neoplasm Results for this TREATMENT PLANNING BARN MANAGER Of Lower Limb Basal pr ocedure are in CT SIMULATION Cell Carcinoma L eft the results Malignant Neoplasm section. 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 04/16/2020 ??4:02 PM Initial Rad Onc Treatment Planning CT Si mulation Date/Time: 04/16/2020 3:57 PM Performed by: Bethany Natarajan M.D. Authorized by: Bethany Natarajan M.D. Bethany Natarajan M.D. RADIATION ONCOLOGY ORDERABLE S Performing Organization Address City/State/ZIP Code Phon e Number [place] na documented in this encounter Visit Diagnoses Diagnosis 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
--- OUTSIDE RECORDS SUMMARY | 2021-12-02 12:48 | XMS_ITS | Encounter Summary ---
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 [facility] Procedures Prior Auth Rad Tx [place] IMRT COMPLEX [address] [place] [address] Referral ID Status Reason Start Date Expiration Date Visits Requ ested Visits Authorized [id number] Closed 04/16/2020 04/16/2021 15 15 Encounter Details Date Type Department Care Team Description 05/01/2020 Hospital Encounter Department of Radiation Shaneka Natarajan I., Oncology in [place], [place] [address] [facility] [address] [place] [phone] Social History Tobacco Use Types Packs/Day Years [...]
--- OUTSIDE RECORDS SUMMARY | 2021-12-02 12:48 | XMS_ITS | Encounter Summary ---
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 [facility] Procedures Prior Auth Rad Tx [place] IMRT COMPLEX [address] [place], [place] [address] Referral ID Status Reason Start Date Expiration Date Visits Requ ested Visits Authorized [id number] Closed 04/16/2020 04/16/2021 15 15 AL WORKER HELPER Encounter Details Date Type Department Care Team Description 04/16/2020 Orders Only Department of Bethany Natarajan N eoplasm Of Radiation Oncology in [place] Adhikari Lower Limb Squamous [place] [address] [facility] Cell Carcinoma Left [address] [place], [place] (Primary Dx) [place] [phone] Social History Tobacco Use Types Packs/Day Years [...]
--- OUTSIDE RECORDS SUMMARY | 2021-12-02 12:48 | XMS_ITS | Encounter Summary ---
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 [facility] Procedures Prior Auth Rad Tx [place] IMRT COMPLEX [address] [place] [address] Referral ID Status Reason Start Date Expiration Date Visits Requ ested Visits Authorized [id number] Closed 04/16/2020 04/16/2021 15 15 Encounter Details Date Type Department Care Team Description 04/26/2020 Hospital Encounter Department of Radiation Shaneka Natarajan I., Oncology in [place], [place] [address] [facility] [address] [place] [phone] Social History Tobacco Use Types Packs/Day Years [...]
--- OUTSIDE RECORDS SUMMARY | 2021-12-02 12:48 | XMS_ITS | Encounter Summary ---
:1940 Author Organization [facility] Address [address] [place] [address] Care Team Providers Name Role Phone Unavailable [...] 04/16/2020 1:28 PM Re sults for this BAG REPAIRER procedure are i n the results section. documented in this encounter Results Leg-Oncology Image Exam (04/16/2020 1:28 PM BAG REPAIRER) Specimen (Source) Anatomical Collection Method Collection Time Re ceived Time Location / / Volume Laterality 04/16/2020 1:25 PM BAG REPAIRER Narrative [facility] - 04/16/2020 1:28 PM BAG REPAIRER This order has been created and auto-finalized [...]
--- OUTSIDE RECORDS SUMMARY | 2021-12-02 12:48 | XMS_ITS | Encounter Summary ---
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 [place], [place] [address] [facility] [address] [place], [place] [phone] (Work) [phone] Social History Tobacco Use Types Packs/Day Years Used Date Smoking Tobacco: Every Day Sex Assigned at Date Recorded Not on file documented as of this encounter Last Filed Vital Signs Vital Sign Reading Time Taken Comments Blood Pressure 124/76 04/16/2020 12:50 PM FAMILY LAWYER Pulse 93 04/16/2020 12:50 PM FAMILY LAWYER Temperature 37.2 ??C (99 ??F) 04/16/2020 12:50 PM FAMILY LAWYER Respiratory Rate - - Oxygen Saturation - - Inhaled Oxygen Concentration - - Weight 95.5 kg (210 lb 8.6 oz) 04/16/2020 12:50 PM FAMILY LAWYER Height - - Body Mass Index - [...] nose SOCIAL HISTORY He lives in [place], [place]. He lives at [address] [place] in an apartment. He is single. 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 He is mobile with [...] We discussed the acute as well as press tender long goods risks, including, but not limited to fatigue, [...] by: Bethany Natarajan M.D. 04/16/2020 4:52 PM FAMILY LAWYER Radiation Oncology [facility] [address] [place], [place] [phone] LY LAWYER documented in this encounter Miscellaneous Notes Addendum Note - Mame Amezquita - 04/16/2020 1:00 PM FAMILY LAWYER Encounter addended by: Mame Amezquita on: 04/17/2020 8:34 AM Actions taken: Letter saved LY LAWYER documented in this encounter Plan of Treatment Not on filedocumented as of this encounter Visit Diagnoses Diagnosis Malignant Neoplasm Of Lower Limb Basal C ell Carcinoma Left - Primary Malignant Neoplasm Of Lower Limb Basal C ell Carcinoma Right 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
--- OUTSIDE RECORDS SUMMARY | 2021-12-02 12:48 | XMS_ITS | Encounter Summary ---
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 [facility] Procedures Prior Auth Rad Tx [place] IMRT COMPLEX [address] [place] [address] Referral ID Status Reason Start Date Expiration Date Visits Requ ested Visits Authorized [id number] Closed 04/16/2020 04/16/2021 15 15 Encounter Details Date Type Department Care Team Description 05/09/2020 Hospital Encounter Department of Radiation Shaneka Natarajan I., [place]cology [place] [address] [facility] [address] [place] [phone] Social History Tobacco Use Types Packs/Day Years [...]
--- OUTSIDE RECORDS SUMMARY | 2021-12-02 12:48 | XMS_ITS | Encounter Summary ---
:1940 Author Organization [facility] Address [address] [place] [address] Care Team Providers Name Role Phone Unavailable Primary Care Provider Unavailable Reason for Referral Outpatient (Routine) - Closed Specialty Diagnoses / Procedures Referred By Contact Refer red To Contact Radiation Oncology Bethany Natarajan [facility] Jason Sun [address] [place] [address] Referral ID Status Reason Start Date Expiration Date Visits Requ ested Visits Authorized [id number] Closed 05/15/2020 05/15/2021 1 1 Scheduling Instructions Deedee first to assess skin Radiation Therapy (Routine) - Canceled Specialty Diagnoses / Procedures Referred By Contact Refer red To Contact Diagnoses 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 [facility] Procedures Management Visit [address] [place], [place] [address] Referral ID Status Reason Start Date Expiration Date Visits V isits Requested Authorized [id number] Canceled 04/10/2020 04/10/2021 5 5 Reason for [...] INSTITUTE Region Procedures Management Visit [address] [place] [address] Referral ID Status Reason Start Date Expiration Date Visits V isits Requested Authorized [id number] Canceled 04/10/2020 04/10/2021 5 5 Encounter Details Date Type Department Care Team Description 05/15/2020 Hospital Encounter Department of Bethany Natarajan Neoplasm Of Lower Limb Basal Cell Carcinoma Left; Radiation Oncology [place]inne Adhikari 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 Radiation Oncology [place] can be contacted at anytime for any questions or concerns. Patient stated a full understanding to the plan of care discussed today. Toxicities reviewed with Dr. Natarajan today. Signed by: Deedee Fry R.N. 05/15/2020 2:59 PM CDT [facility] Rad[facility] [address] [place] [address] documented in this encounter Plan of Treatment [...]
--- OUTSIDE RECORDS SUMMARY | 2021-12-02 12:48 | XMS_ITS | Encounter Summary ---
:1940 Author Organization [facility] Address [address] [place] [address] Care Team Providers Name Role Phone Unavailable Primary Care Provider Unavailable Reason for Visit Reason Comments Lab Monitoring Encounter Details Date Type Department Care Team Description 04/19/2020 Documentation Department of Radiation Deedee Fry, Lab Monitoring Oncology in [facility] [address] [facility] [address] [place] [phone] [phone] (Wo rk) Social History Tobacco Use Types Packs/Day Years Used Date Smoking Tobacco: Every Day Sex Assigned at Date Recorded Not on file documented as of this encounter Progress Notes Deedee Fry, RJhonN. - 04/19/2020 10:39 AM CST Lab result entered in BAKER documented in this encounter Plan of Treatment Not on filedocumented as of this encounter Procedures Procedure Name Priority Date/Time Associated Diagnosis Comme nts LABEXT SARS Routine 04/17/2020 12:00 AM Results for this CORONAVIRUS-2 CLIP BAKER procedure are in (COVID-19) RNA the results section. documented in this encounter Results EXT SARS Coronavirus-2 (COVID-19) RNA (04/17/2020 12:00 AM CLIP BAKER) [facility] Method Time Signature EXT Undetected Inconclus [facility] SARS-CoV-2 sylvia, LABORATORIES - RNA Indetermi [facility] Invalid, Negative, Not Detected, Undetecte d, Other (specify in comment) Specimen (Source) Anatomical Location Collection Method / Collectio n Time Received Time / Laterality Volume Swab 04/17/2020 Bethany Natarajan M.D. LAB MICROBIOLOGY - GENERAL O RDERABLES Performing Organization Address City/State/ZIP Code Phon e Number [facility]ATORIES - [address] [place], [place] [address] [facility] documented in this encounter Visit Diagnoses Not on filedocumented in this encounter
--- OUTSIDE RECORDS SUMMARY | 2021-12-02 12:48 | XMS_ITS | Encounter Summary ---
:1940 Author Organization [facility] Address [address] [place] [address] Care Team Providers Name Role Phone Unavailable [...] 12:15 Result s for this EXAM PM CYBER SECURITY ARCHITECT procedure are i n the results section. documented in this encounter Results DERMATOLOGY IMAGE EXAM (02/12/2017 12:15 PM CYBER SECURITY ARCHITECT) Specimen (Source) Anatomical Collection Method Collection Time Re ceived Time Location / / Volume Laterality 02/12/2017 12:00 PM CYBER SECURITY ARCHITECT Narrative IIMS - 02/12/2017 2:49 PM CYBER SECURITY ARCHITECT This order has been created and auto-finalized [...]
--- OUTSIDE RECORDS SUMMARY | 2021-12-02 12:48 | XMS_ITS | Encounter Summary ---
:1940 Author Organization 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 I encouraged him to [...] Garrison Casas M.D. 05/07/2020 4:51 PM CDT [facility] Rad[facility] Therapy [facility] [address] [place] [address] documented in this encounter Plan of Treatment [...]
--- OUTSIDE RECORDS SUMMARY | 2021-12-02 12:48 | XMS_ITS | Encounter Summary ---
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 [facility] Procedures Prior Auth Rad Tx [place] IMRT COMPLEX [address] [place] [address] Referral ID Status Reason Start Date Expiration Date Visits Requ ested Visits Authorized [id number] Closed 04/16/2020 04/16/2021 15 15 Encounter Details Date Type Department Care Team Description 05/14/2020 Hospital Encounter Department of Radiation Shaneka Natarajan I., Oncology [place] [address] [facility] [address] [place] [phone] Social History Tobacco Use Types Packs/Day Years [...]
--- OUTSIDE RECORDS SUMMARY | 2021-12-02 12:48 | XMS_ITS | Encounter Summary ---
:1940 Author Organization [facility] Address [address] [place] [address] Care Team Providers Name Role Phone Unavailable [...] Bethany Natarajan M.D. 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 [facility] [place] [facility] Procedures Management Visit [address] [place], [place] [address] Referral ID Status Reason Start Date Expiration Date Visits V isits Requested Authorized [id number] Canceled 04/10/2020 04/10/2021 5 5 Encounter Details Date Type Department Care Team Description 05/01/2020 Hospital Encounter Department of Bethany Natarajan 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3 ??F) 05/01/2020 1:55 PM WIRE CUTTER Respiratory Rate - - Oxygen Saturation - [...] Quynh Moreno P.A.-C. M.SJhon 05/01/2020 2:25 PM WIRE CUTTER CUTTER Associated attestation - Bethany Natarajan M.D. - 05/01/2020 4:43 PM WIRE CUTTER I saw and evaluated the patient and [...]
--- OUTSIDE RECORDS SUMMARY | 2021-12-02 12:48 | XMS_ITS | Encounter Summary ---
:1940 Author Organization [facility] Address [address] [place] [address] Care Team Providers Name Role Phone Unavailable Primary Care Provider Unavailable Encounter Details Date Type Department Care Team Description 02/12/2017 Hospital Encounter HX RST DERM SURG OP Avni Gaffney [facility] M.D. [address] [place] [address] (Wo rk) Social History Tobacco Use Types Packs/Day Years Used Date Smoking Tobacco: Never Assessed Sex Assigned at Date Recorded Not on file documented as of this encounter Last Filed Vital Signs Vital Sign Reading Time Taken Comments Blood Pressure 141/85 02/12/2017 8:05 AM BASIN CLEANER Vital sign result from Clinical Notes. Pulse 89 02/12/2017 8:05 AM BASIN CLEANER Vital sign result from Clinical Notes. Temperature [...]
--- OUTSIDE RECORDS SUMMARY | 2021-12-02 12:48 | XMS_ITS | Encounter Summary ---
:1940 Author Organization [facility] Address [address] [place] [address] Care Team Providers Name Role Phone Unavailable Primary Care Provider Unavailable Reason for Referral Outpatient (Routine) - Closed Specialty Diagnoses / Procedures Referred By Contact Refer red To Contact Diagnoses Swelling Testicle Garrison Casas M.D. 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 [facility] Procedures Management Visit [address] [place], [place] [phone] Referral ID Status Reason Start Date Expiration Date Visits V isits Requested Authorized [id number] Canceled 04/10/2020 04/10/2021 5 5 Reason for [...] INSTITUTE Region Procedures Management Visit [address] [place] [address] Referral ID Status Reason Start Date Expiration Date Visits V isits Requested Authorized [id number] Canceled 04/10/2020 04/10/2021 5 5 Encounter Details Date Type Department Care Team Description 05/08/2020 Hospital Encounter Department of Garrison Casas ing Testicle (Primary Dx); Radiation Oncology Corinne Cabello Malignant Neoplasm Of Lower Limb Basal C ell Carcinoma Left; in [place], [facility] [address] [facility] 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 The patient will continue with treatment as planned. Signed by: Garrison Casas M.D. 05/08/2020 2:54 PM CDT [facility] Radiation Therapy Center [address] [place] [address] documented in this encounter Plan of Treatment [...]
--- OUTSIDE RECORDS SUMMARY | 2021-12-02 12:48 | XMS_ITS | Encounter Summary ---
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 [facility] Procedures Prior Auth Rad Tx [place] IMRT COMPLEX [address] [place] [address] Referral ID Status Reason Start Date Expiration Date Visits Requ ested Visits Authorized [id number] Closed 04/16/2020 04/16/2021 15 15 Encounter Details Date Type Department Care Team Description 05/03/2020 Hospital Encounter Department of Radiation Shaneka Natarajan I., [place]cology [place] [address] [facility] [address] [place] [phone] Social History Tobacco Use Types Packs/Day Years [...]
--- OUTSIDE RECORDS SUMMARY | 2021-12-02 12:48 | XMS_ITS | Encounter Summary ---
:1940 Author Organization [facility] Address [address] [place] [address] Care Team Providers Name Role Phone Unavailable Primary Care Provider Unavailable Reason for Referral Specialty Diagnoses / Procedures Referred By Contact Refer red To Contact Bethany Natarajan M.D. 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 04/16/2020 ??4:02 PM Initial Rad Onc Treatment Planning CT Si mulation Date/Time: 04/16/2020 3:57 PM Performed by: Bethany Natarajan M.D. Authorized by: Bethany Natarajan M.D. Bethany Natarajan M.D. RADIATION ONCOLOGY ORDERABLE S Performing Organization Address City/State/ZIP Code Phon e Number [place] documented in this encounter [...]
--- OUTSIDE RECORDS SUMMARY | 2021-12-02 12:48 | XMS_ITS | Encounter Summary ---
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 [facility] Procedures Prior Auth Rad Tx [place] IMRT COMPLEX [address] [place] [address] Referral ID Status Reason Start Date Expiration Date Visits Requ ested Visits Authorized [id number] Closed 04/16/2020 04/16/2021 15 15 Encounter Details Date Type Department Care Team Description 04/24/2020 Hospital Encounter Department of Radiation Shaneka Natarajan I., Oncology in [place], [place] [address] [facility] [address] [place] [phone] Social History Tobacco Use Types Packs/Day Years [...]
--- OUTSIDE RECORDS SUMMARY | 2021-12-02 12:48 | XMS_ITS | Encounter Summary ---
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 [facility] Procedures Prior Auth Rad Tx [place] IMRT COMPLEX [address] [place] [address] Referral ID Status Reason Start Date Expiration Date Visits Requ ested Visits Authorized [id number] Closed 04/16/2020 04/16/2021 15 15 Encounter Details Date Type Department Care Team Description 05/13/2020 Hospital Encounter Department of Radiation Shaneka Natarajan I., [place]cology [place] [address] [facility] [address] [place] [phone] Social History Tobacco Use Types Packs/Day Years [...]
--- OUTSIDE RECORDS SUMMARY | 2021-12-02 12:48 | XMS_ITS | Encounter Summary ---
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 [facility] Procedures Prior Auth Rad Tx [place] IMRT COMPLEX [address] [place] [address] Referral ID Status Reason Start Date Expiration Date Visits Requ ested Visits Authorized [id number] Closed 04/16/2020 04/16/2021 15 Encounter Details Date Type Department Care Team Description 05/06/2020 Hospital Encounter Department of Radiation Shaneka Natarajan I., [place] [address] [facility] [address] [place] [phone] Social History Tobacco Use Types Packs/Day Years [...]
--- OUTSIDE RECORDS SUMMARY | 2021-12-02 12:48 | XMS_ITS | Encounter Summary ---
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 [facility] Procedures Prior Auth Rad Tx [place] IMRT COMPLEX [address] [place] [address] Referral ID Status Reason Start Date Expiration Date Visits Requ ested Visits Authorized [id number] Closed 04/16/2020 04/16/2021 15 15 Encounter Details Date Type Department Care Team Description 05/07/2020 Hospital Encounter Department of Radiation Shaneka Natarajan I., [place]cology [place] [address] [facility] [address] [place] [phone] Social History Tobacco Use Types Packs/Day Years [...]
--- OUTSIDE RECORDS SUMMARY | 2021-12-02 12:48 | XMS_ITS | Encounter Summary ---
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 [facility] Procedures Prior Auth Rad Tx MD IMRT COMPLEX [address] [place] [address] Referral ID Status Reason Start Date Expiration Date Visits Requ ested Visits Authorized [id number] Closed 04/16/2020 04/16/2021 15 15 Encounter Details Date Type Department Care Team Description 04/29/2020 Hospital Encounter Department of Radiation Shaneka Natarajan I., Oncology in [place], [place] [address] [facility] [address] [place] [phone] Social History Tobacco Use Types Packs/Day Years [...]
--- OUTSIDE RECORDS SUMMARY | 2021-12-02 12:48 | XMS_ITS | Encounter Summary ---
:1940 Author Organization [facility] Address [address] [place] [address] Care Team Providers Name Role Phone Unavailable [...] 12:30 Result s for this EXAM PM PRESIDENT ERGONOMIC CONSULTING procedure are i n the results section. documented in this encounter Results DERMATOLOGY IMAGE EXAM (02/12/2017 12:30 PM PRESIDENT ERGONOMIC CONSULTING) Specimen (Source) Anatomical Collection Method Collection Time Re ceived Time Location / / Volume Laterality 02/12/2017 12:00 PM PRESIDENT ERGONOMIC CONSULTING Narrative IIMS - 02/12/2017 2:50 PM PRESIDENT ERGONOMIC CONSULTING This order has been created and auto-finalized [...]
--- OUTSIDE RECORDS SUMMARY | 2021-12-02 12:49 | XMS_ITS | Encounter Summary ---
:1940 Author Organization [facility] Address [address] [place] [address] Care Team Providers Name Role Phone Unavailable [...] 12:00 Result s for this EXAM PM MAILMASTER procedure are i n the results section. documented in this encounter Results DERMATOLOGY IMAGE EXAM (02/12/2017 12:00 PM MAILMASTER) Specimen (Source) Anatomical Collection Method Collection Time Re ceived Time Location / / Volume Laterality 02/12/2017 12:00 PM MAILMASTER Narrative IIMS - 02/12/2017 2:49 PM MAILMASTER This order has been created and auto-finalized [...]
--- OUTSIDE RECORDS SUMMARY | 2021-12-02 12:49 | XMS_ITS | Encounter Summary ---
:1940 Author Organization [facility] Address [address] [place] [address] Care Team Providers Name Role Phone Unavailable [...] 12:05 Result s for this EXAM PM BOXING INSTRUCTOR procedure are i n the results section. documented in this encounter Results DERMATOLOGY IMAGE EXAM (02/12/2017 12:05 PM BOXING INSTRUCTOR) Specimen (Source) Anatomical Collection Method Collection Time Re ceived Time Location / / Volume Laterality 02/12/2017 12:00 PM BOXING INSTRUCTOR Narrative IIMS - 02/12/2017 2:49 PM BOXING INSTRUCTOR This order has been created and auto-finalized [...]
--- OUTSIDE RECORDS SUMMARY | 2021-12-02 12:49 | XMS_ITS | Encounter Summary ---
:1940 Author Organization [facility] Address [address] [place] [address] Care Team Providers Name Role Phone Unavailable [...] 12:00 Result s for this EXAM PM CONSTRUCTION INSPECTOR procedure are i n the results section. documented in this encounter Results DERMATOLOGY IMAGE EXAM (01/19/2017 12:00 PM CONSTRUCTION INSPECTOR) Specimen (Source) Anatomical Location Collection Method / Collectio n Time Received Time / Laterality Volume Narrative IIMS - 01/19/2017 4:19 PM CONSTRUCTION INSPECTOR This order has been created and [...]
== END 2021-12-02 12:46 | disposition home or self-care (01) ==
LOC: WOUND 12:45
PROVIDERS: PCP Family Medicine; Visit Provider Nurse Practitioner Family
DX: L59.8 Other specified disorders of the skin and subcutaneous tissue related to radiation (principal)
CPT/HCPCS: 11042

== ENCOUNTER 2021-12-09 12:41 | Outpatient (CLI) | payer OTHER, SELFPAY ==
--- OUTSIDE RECORDS SUMMARY | 2021-12-09 12:43 | XMS_ITS | Clinical Summary ---
:1940 Author Organization [facility] [place] [address] Care Team Providers Name Role Phone Alfredo [...] was well controlled her e on dilaudid FITTING ROOM CHECKER on following regimen: 0 04/16/2014 Active mg/mL inj LOADING DOSE: 0.2 mg for 1 dose FITTING ROOM CHECKER BOLUS DOSE: 0.2-0.3 mg LOCKOUT INTERVAL: 10 [...] elationship: Life Partner Secondary Health Care Agent: Morrisla p: Phone: Conservator: Relationship: Phone: Guardian: Relationship: [...] 3-15-10 05/06/2009 Cardiomyopathy , ischemic; old inf [place] 05/02/2009 Overview: Per preop, EF of 39% [...] Comments Blood Pressure 123/73 04/16/2014 2:19 PM DYNAMIC BALANCER Pulse 115 04/16/2014 2:19 PM DYNAMIC BALANCER Temperature 38.3 ??C (100.9 ??F) 04/16/2014 3:30 PM DYNAMIC BALANCER Respiratory Rate 20 04/16/2014 2:19 PM DYNAMIC BALANCER Oxygen Saturation 94% 04/16/2014 2:19 PM DYNAMIC BALANCER Inhaled Oxygen Concentration - - Weight 86.1 kg (189 lb 13.1 oz) 04/16/2014 5:00 AM DYNAMIC BALANCER Height 180.3 cm (5' 10.98) 04/02/2014 12:00 AM DYNAMIC BALANCER Body Mass Index 26.49 04/02/2014 12:00 AM DYNAMIC BALANCER Plan of Treatment Health Maintenance Due Date [...] 65+ 10/23/2021 Medical Devices Implanted Type Area Scout Professional Sports Device Shelf Model / Identifier Expiration Serial / Date Lot Screw Self Drilling 3.5x15mm - [id number] N/A: Spine SOFAMOR [id number] [id number] / Implanted: Qty: 4 on 06/24/2010 at [facility] / Humeral Tray Left: [id number] / Implanted: Qty: 1 on 03/17/2012 at [facility] Shoulder / [id number] Description: HUMERAL TRAY Explanted Type Area Scout Professional Sports Device Shelf Model / Identifier Expiration Serial / Date Lot Patch Vasc 0.8x8cm Xenosure Biological Pericardial - [id number] Right: Lemaitre 0.8P8# / Explanted: Qty: 1 on 03/09/2014 at [facility] [employer] / [id number] Results Not on filefrom Last 3 Months Insurance Payer Benefit Plan / Subscriber ID Effective Dates Phone Addre ss Type Group [facility] [id number] 2015-Present [address] [place] [address] Guarantor Name Account Type Relation to Date of Phone Bill ing Patient Address Tl Lugo Personal/Family Self 1940 [phone] (Home) [place] [address] Advance Directives Documents on File Type Date Recorded Patient Side Door Man Explanati on Healthcare Directive 05/12/2009 Healthcare Directive 06/26/2010 Latest Code Status on File Code Status Date Activated Date Inactivated Comments Full Code 04/16/2014 2:21 PM Full Code 03/07/2014 8:16 PM 04/16/2014 2:21 PM Full Code 03/07/2014 12:01 PM 03/07/2014 8:16 PM Full Code 02/28/2014 6:12 AM 02/28/2014 11:11 PM Full Code 03/17/2012 12:44 PM 03/19/2012 4:35 PM Care Teams Warp Tier Relationship Specialty Start Date End Date Alfredo Starr MD PCP - General 11/13/08
--- OUTSIDE RECORDS SUMMARY | 2021-12-09 12:43 | XMS_ITS | Encounter Summary ---
:1940 Author Organization [facility] Address [address] [place] [address] Care Team Providers Name Role Phone Unavailable Primary Care Provider Unavailable Reason for Visit Reason Comments Med Refill Encounter Details Date Type Department Care Team Description 07/09/2020 Clinical Communication Department of Bethany Natarajan ed [facility]ill [facility] [address] [facility] [address] [place] [address] [phone] Social History Tobacco Use Types Packs/Day Years [...] would like a refill today. Phone number: [phone] Is it okay to leave a voicemail on answering machine with test results? Yes Pharmacy (if medication related): [facility] [address] [place] [address] [address] [facility] [address] [facility] [address] Paula Hall documented in this encounter Plan of Treatment Not on filedocumented as of this encounter Visit Diagnoses Not on filedocumented in this encounter
--- OUTSIDE RECORDS SUMMARY | 2021-12-09 12:43 | XMS_ITS ---
:1940 Author Organization [facility] Address [address] [place] [address] Care Team Providers Name Role Phone Unavailable [...] Elapsed Days Session Dose Total Dos e [id number] 05/15/2020 21 300 cGy 4,500 cGy [id number] 05/06/2020 12 425 cGy 3,825 cGy [id number] 04/26/2020 2 700 cGy 2,100 cGy
--- OUTSIDE RECORDS SUMMARY | 2021-12-09 12:43 | XMS_ITS | Encounter Summary ---
:1940 Author Organization [facility] Address [address] [place] [address] Care Team Providers Name Role Phone Unavailable Primary Care Provider Unavailable Reason for Visit Reason Comments Med Refill Encounter Details Date Type Department Care Team Description 08/08/2020 Clinical Communication Department of Travis Hall Refjoanne [facility] [address] [place] [phone] Social History Tobacco Use Types Packs/Day Years Used Date Smoking Tobacco: Every Day Sex Assigned at Date Recorded Not on file documented as of this encounter Miscellaneous Notes Telephone Encounter - Deedee Fry R.N. - 08/08/2020 1:06 PM CDT Information Discussed I called and left voicemail on patient's phone requesting call back. Patient reported that he was taking Horatio twice a day at his last in office visit with us. PLAN Dr. Natarajan and I will send through refill on Horatio to get him through until August 16, 2020, when he is scheduled for follow up with Dr. Natarajan in [place]. Disposition/Recommendation: I requested call back, refill will [...] can be done or not Phone number: [phone] Is it okay to leave a voicemail on answering machine with test results? Yes Pharmacy (if medication related): [facility] [address] [place] [address] Paula aHll documented in this encounter Plan of Treatment Not on filedocumented as of this encounter Visit Diagnoses Not on filedocumented in this encounter
--- OUTSIDE RECORDS SUMMARY | 2021-12-09 12:43 | XMS_ITS | Clinical Summary ---
:1940 Author Organization [facility] Address [address] [place] [address] Care Team Providers Name Role Phone Unavailable Primary Care Provider Unavailable Source Comments Patient records contain information from all sites at [facility]. For routine questions regarding patient records, call [phone] during business hours, M-F 8:00 AM - 5:00 PM Central Time. Record requests for emergency care only can be directed to [phone] at any time.[facility] Allergies Active Allergy Reactions Severity Noted [...] Phone Addre ss Type Group [facility] [id number] 2021-Present [phone] [address] [place] [address]
--- OUTSIDE RECORDS SUMMARY | 2021-12-09 12:43 | XMS_ITS | Encounter Summary ---
:1940 Author Organization [facility] Address [address] [place] [address] Care Team Providers Name Role Phone Unavailable Primary Care Provider Unavailable Encounter Details Date Type Department Care Team Description 11/01/2020 Orders Only [facility] PCP TH Sa greyson Moore M.D. [address] [place], [place] [phone] (Wo rk) Social History Tobacco Use Types Packs/Day Years Used Date Smoking Tobacco: Every Day Sex Assigned at Date Recorded Not on file documented as of this encounter Plan of Treatment Not on filedocumented as of this encounter Visit Diagnoses Not on filedocumented in this encounter
--- OUTSIDE RECORDS SUMMARY | 2021-12-09 12:43 | XMS_ITS | Encounter Summary ---
:1940 Author Organization [facility] Address [address] [place] [address] Care Team Providers Name Role Phone Unavailable Primary Care Provider Unavailable Reason for Visit Reason Comments Follow-up Encounter Details Date Type Department Care Team Description 10/30/2020 Clinical Communication Department of Bethany Natarajanzuhair Radiation Oncology in [place] Adhikari [facility] [address] [facility] [address] [place] [address] [phone] Social History Tobacco Use Types Packs/Day Years [...] center to help with this. Phone number: [phone] Is it okay to leave a voicemail on answering machine with test results? No Pharmacy (if medication related): N/A Elif Parkinson documented in this encounter Plan of Treatment Not on filedocumented as of this encounter Visit Diagnoses Not on filedocumented in this encounter
--- OUTSIDE RECORDS SUMMARY | 2021-12-09 12:43 | XMS_ITS | Encounter Summary ---
:1940 Author Organization [facility] Address [address] [place] [address] Care Team Providers Name Role Phone Unavailable Primary Care Provider Unavailable Encounter Details Date Type Department Care Team Description 07/10/2020 Clinical Communication Department of Bethany Natarajan Radiation Oncology in [place] Adhikari [facility] [address] [place] [address] [place] [address] [phone] Social History Tobacco Use Types Packs/Day Years [...] informed him that a prescription for the Crosby has been sent to the [facility] in [place]. Phone number: [phone] Is it okay to leave a voicemail on answering machine with test results? Yes Pharmacy (if medication related): N/A Elif Parkinson documented in this encounter Plan of Treatment Not on filedocumented as of this encounter Visit Diagnoses Not on filedocumented in this encounter
--- OUTSIDE RECORDS SUMMARY | 2021-12-09 12:43 | XMS_ITS | Encounter Summary ---
:1940 Author Organization [facility] Address [address] [place] [address] Care Team Providers Name Role Phone Unavailable Primary Care Provider Unavailable Encounter Details Date Type Department Care Team Description 09/27/2020 Clinical Communication Department of Bethany Natarajan Radiation Oncology in [place] Adhikari [facility] [address] [place] [address] [place] [address] [phone] Social History Tobacco Use Types Packs/Day Years [...]
--- OUTSIDE RECORDS SUMMARY | 2021-12-09 12:44 | XMS_ITS | Encounter Summary ---
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 [facility] Procedures Prior Auth Rad Tx [place] IMRT COMPLEX [address] [place] [address] Referral ID Status Reason Start Date Expiration Date Visits Requ ested Visits Authorized [id number] Closed 04/16/2020 04/16/2021 15 15 Encounter Details Date Type Department Care Team Description 04/29/2020 Hospital Encounter Department of Radiation Shaneka Natarajan I., [facility] [place] [address] [facility] [address] [place] [phone] [phone] Social History Tobacco Use Types Packs/Day Years [...] TO FIND 200 each. Ibuprofen PM 0 /38 warfarin (COUMADIN) 4 mg Take one-half tablet 0 1 03/18/2019 tablet M-W-F. Take a full tablet all other days documented as of this encounter Plan of Treatment Not on filedocumented as of this encounter Visit Diagnoses Not on filedocumented in this encounter
--- OUTSIDE RECORDS SUMMARY | 2021-12-09 12:44 | XMS_ITS | Encounter Summary ---
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 [facility] Procedures Prior Auth Rad Tx CT IMRT COMPLEX [address] [place] [address] Referral ID Status Reason Start Date Expiration Date Visits Requ ested Visits Authorized [id number] Closed 04/16/2020 04/16/2021 15 15 Encounter Details Date Type Department Care Team Description 05/03/2020 Hospital Encounter Department of Radiation Shaneka [facility]ajan I., [facility] [place] [address] [facility] [address] [place] [phone] [phone] Social History Tobacco Use Types Packs/Day Years [...]
--- OUTSIDE RECORDS SUMMARY | 2021-12-09 12:44 | XMS_ITS | Encounter Summary ---
:1940 Author Organization 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 [facility] Procedures Prior Auth Rad Tx [place] IMRT COMPLEX [address] [place] [address] Referral ID Status Reason Start Date Expiration Date Visits Requ ested Visits Authorized [id number] Closed 04/16/2020 04/16/2021 15 15 Encounter Details Date Type Department Care Team Description 05/01/2020 Hospital Encounter Department of Radiation Shaneka Natarajan I., [facility] [place] [address] [facility] [address] [place] [phone] [phone] Social History Tobacco Use Types Packs/Day Years [...]
--- OUTSIDE RECORDS SUMMARY | 2021-12-09 12:44 | XMS_ITS | Encounter Summary ---
:1940 Author Organization [facility] Address [address] [place] [address] Care Team Providers Name Role Phone Unavailable [...] 12:30 Result s for this EXAM PM LEACH TANK TENDER procedure are i n the results section. documented in this encounter Results DERMATOLOGY IMAGE EXAM (02/12/2017 12:30 PM LEACH TANK TENDER) Specimen (Source) Anatomical Collection Method Collection Time Re ceived Time Location / / Volume Laterality 02/12/2017 12:00 PM LEACH TANK TENDER Narrative IIMS - 02/12/2017 2:50 PM LEACH TANK TENDER This order has been created and [...]
--- OUTSIDE RECORDS SUMMARY | 2021-12-09 12:44 | XMS_ITS | Encounter Summary ---
:1940 Author Organization [facility] Address [address] [place] [address] Care Team Providers Name Role Phone Unavailable Primary Care Provider Unavailable Reason for Referral Specialty Diagnoses / Procedures Referred By Contact Refer red To Contact Bethany Natarajan M.D. [facility] [address] [place] [phone] Referral ID Status Reason Start Date Expiration Date Visits Requ ested Visits Authorized DEPARTMENT MARINE ENGINEER Encounter Details Date Type Department Care Team Description 04/30/2020 - Hospital Encounter Department of Aramis Natarajan M.D. 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 [address] [place] [phone] 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; in [place], Malignant Henry plasm Of Lower Limb Basal Cell Carcinoma Right [place] [address] [place] [address] Social History Tobacco Use Types Packs/Day Years [...]
--- OUTSIDE RECORDS SUMMARY | 2021-12-09 12:44 | XMS_ITS | Encounter Summary ---
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 [facility] Procedures Prior Auth Rad Tx [place] IMRT COMPLEX [address] [place] [address] Referral ID Status Reason Start Date Expiration Date Visits Requ ested Visits Authorized [id number] Closed 04/16/2020 04/16/2021 15 15 Encounter Details Date Type Department Care Team Description 05/06/2020 Hospital Encounter Department of Radiation Shaneka Natarajan I., [facility] [place] [address] [facility] [address] [place] [phone] [phone] Social History Tobacco Use Types Packs/Day Years [...]
--- OUTSIDE RECORDS SUMMARY | 2021-12-09 12:44 | XMS_ITS | Encounter Summary ---
:1940 Author Organization [facility] Address [address] [place] [address] Care Team Providers Name Role Phone Unavailable [...] 04/16/2020 1:28 PM Re sults for this DYE MIXER procedure are i n the results section. documented in this encounter Results Leg-Oncology Image Exam (04/16/2020 1:28 PM DYE MIXER) Specimen (Source) Anatomical Collection Method Collection Time Re ceived Time Location / / Volume Laterality 04/16/2020 1:25 PM DYE MIXER Narrative IIMS - 04/16/2020 1:28 PM DYE MIXER This order has been created and [...]
--- OUTSIDE RECORDS SUMMARY | 2021-12-09 12:44 | XMS_ITS | Encounter Summary ---
:1940 Author Organization [facility] Address [address] [place] [address] Care Team Providers Name Role Phone Unavailable [...] Onc Treatment Planning CT Simulation [address] [place], [place] [address] Referral ID Status Reason Start Date Expiration Date Visits Requ ested Visits Authorized [id number] Closed 04/10/2020 04/10/2021 1 1 OPERATIONS MANAGER Reason for Visit Radiation Therapy (Routine) [...] Onc Treatment Planning CT Simulation [address] [place], [place] [address] Referral ID Status Reason Start Date Expiration Date Visits Requ ested Visits Authorized [id number] Closed 04/10/2020 04/10/2021 1 1 Encounter Details Date Type Department Care Team Description 04/16/2020 Hospital Encounter Department of Bethany Natarajan 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 CT images were transferred to the [employer] treatment planning system, after a reference isocenter was determined and marked. Segmentation and treatment planning will take place priorto treatment delivery. Patient set up and imaging was appropriate and completed without incident. [employer] Software Test Engineer use:No OPERATIONS MANAGER documented in this encounter Plan of Treatment Not on filedocumented as of this encounter Procedures Procedure Name Priority Date/Time Associated Comments Diagnosis INITIAL RAD ONC Routine 04/16/2020 2:00 PM Malignant Neoplasm Results for this TREATMENT PLANNING SITE OPERATIONS MANAGER Of Lower Limb Basal pr ocedure are in CT SIMULATION Cell Carcinoma L eft the results Malignant Neoplasm section. 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 04/16/2020 ??4:02 PM Initial Rad Onc Treatment Planning CT Si mulation Date/Time: 04/16/2020 3:57 PM Performed by: Bethany Natarajan M.D. Authorized by: Bethany Natarajan M.D. Bethany Natarajan M.D. 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
--- OUTSIDE RECORDS SUMMARY | 2021-12-09 12:44 | XMS_ITS | Encounter Summary ---
:1940 Author Organization [facility] Address [address] [place] [address] Care Team Providers Name Role Phone Unavailable [...] 04/16/2020 1:28 PM Re sults for this CANOE INSPECTOR FINAL procedure are i n the results section. documented in this encounter Results Leg-Oncology Image Exam (04/16/2020 1:28 PM CANOE INSPECTOR FINAL) Specimen (Source) Anatomical Collection Method Collection Time Re ceived Time Location / / Volume Laterality 04/16/2020 1:25 PM CANOE INSPECTOR FINAL Narrative IIMS - 04/16/2020 1:28 PM CANOE INSPECTOR FINAL This order has been created and auto-finalized [...]
--- OUTSIDE RECORDS SUMMARY | 2021-12-09 12:44 | XMS_ITS | Encounter Summary ---
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 [facility] Procedures Prior Auth Rad Tx [place] IMRT COMPLEX [address] [place] [address] Referral ID Status Reason Start Date Expiration Date Visits Requ ested Visits Authorized [id number] Closed 04/16/2020 04/16/2021 15 15 Encounter Details Date Type Department Care Team Description 05/13/2020 Hospital Encounter Department of Radiation Shaneka Natarajan I., [facility] [place] [address] [facility] [address] [place] [phone] [phone] Social History Tobacco Use Types Packs/Day Years [...]
--- OUTSIDE RECORDS SUMMARY | 2021-12-09 12:44 | XMS_ITS | Encounter Summary ---
:1940 Author Organization [facility] Address [address] [place] [address] Care Team Providers Name Role Phone Unavailable Primary Care Provider Unavailable Reason for Referral Outpatient (Routine) - Closed Specialty Diagnoses / Procedures Referred By Contact Refer red To Contact Radiation Oncology Bethany Natarajan [facility] [place] [facility] [place] M.D. [address] [place] [address] Referral ID Status Reason Start Date Expiration Date Visits Requ ested Visits Authorized [id number] Closed 05/28/2020 05/28/2021 1 1 Scheduling Instructions 2-3 weeks with CECY and Deedee Reason for Visit Outpatient (Routine) - Closed Specialty Diagnoses / Procedures Referred By Contact Refer red To Contact Radiation Oncology Bethany Natarajan [facility] F[facility] Gomez M.D. [address] [place] [phone] Referral ID Status Reason Start Date Expiration Date Visits Requ ested Visits Authorized [id number] Closed 05/28/2020 05/28/2021 1 1 Encounter Details Date Type Department Care Team Description 06/11/2020 Hospital Encounter Department of Bethany Natarajan (Primary Dx) Radiation Oncology Corinne Adhikari in [place], [address] [place] [address] [address]21 [facility] [address] [place], [place] [phone] (Work) [phone] Social History Tobacco Use Types Packs/Day Years [...] a 8 out of 10.He takes 1 [place] in the morning and 1 at bedtime. [...] will send through prescription refill on his [place] to his preferred pharmacy today. Patient is to not exceed 3200 mg of Ibuprofen a day. We encouraged patient to trial warm compresses for acute right eye mattering. We will send through referral to [facility]. We will see Mr. Tl Lugo in a follow-up visit in late July. The patient was told to contact us sooner with questions or concerns. He verbally expressed his understanding of the plan. Signed by: Deedee Fry R.N. 06/11/2020 1:09 PM CDT [facility] [address] [place] [address] documented in this encounter Plan of Treatment Scheduled Referrals Name Type Priority Associated Order Schedule Diagnoses Radiation Oncology Outpatient Referral Routine On ce for 1 office visit Occurrences sta rting (clinic) 06/11/2020 unti l 06/11/2020 documented as of this encounter Visit Diagnoses Diagnosis Red Eye - Primary documented in this encounter
--- OUTSIDE RECORDS SUMMARY | 2021-12-09 12:44 | XMS_ITS | Encounter Summary ---
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
--- OUTSIDE RECORDS SUMMARY | 2021-12-09 12:44 | XMS_ITS | Encounter Summary ---
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 [facility] Procedures Prior Auth Rad Tx [place] IMRT COMPLEX [address] [place] [address] Referral ID Status Reason Start Date Expiration Date Visits Requ ested Visits Authorized [id number] Closed 04/16/2020 04/16/2021 15 15 Encounter Details Date Type Department Care Team Description 04/24/2020 Hospital Encounter Department of Radiation Shaneka [facility]ajan I., [facility] [place] [address] [facility] [address] [place] [phone] [phone] Social History Tobacco Use Types Packs/Day Years [...]
--- OUTSIDE RECORDS SUMMARY | 2021-12-09 12:44 | XMS_ITS | Encounter Summary ---
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
--- OUTSIDE RECORDS SUMMARY | 2021-12-09 12:44 | XMS_ITS | Encounter Summary ---
:1940 Author Organization [facility] Address [address] [place] [address] Care Team Providers Name Role Phone Unavailable Primary Care Provider Unavailable Encounter Details Date Type Department Care Team Description 05/15/2020 Hospital Encounter Department of Radiation Shaneka Natarajan I., Oncology in [facility] [address] [facility] [address] [place] [address] [phone] Social History Tobacco Use Types Packs/Day Years [...]
--- OUTSIDE RECORDS SUMMARY | 2021-12-09 12:44 | XMS_ITS | Encounter Summary ---
:[address] 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 [facility] Procedures Prior Auth Rad Tx [place] IMRT COMPLEX [address] [place] [address] Referral ID Status Reason Start Date Expiration Date Visits Requ ested Visits Authorized [id number] Closed 04/16/2020 04/16/2021 15 15 Encounter Details Date Type Department Care Team Description 05/08/2020 Hospital Encounter Department of Radiation Shaneka Natarajan I., [facility] [place] [address] [facility] [address] [place] [phone] [phone] Social History Tobacco Use Types Packs/Day Years [...]
--- OUTSIDE RECORDS SUMMARY | 2021-12-09 12:44 | XMS_ITS | Encounter Summary ---
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 [facility] Procedures Management Visit [address] [place], [place] [address] Referral ID Status Reason Start Date Expiration Date Visits V isits Requested Authorized [id number] Canceled 04/10/2020 04/10/2021 5 5 Encounter Details Date Type Department Care Team Description 05/01/2020 Hospital Encounter Department of Bethany Natarajan 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; in [place], [facility] Malignant Neoplasm Of Lower Limb Basal C ell Carcinoma Right [place], [place] [address] [facility] [address] [place], [place] [phone] (Work) [phone] Social History Tobacco Use Types Packs/Day Years Used Date Smoking Tobacco: Every Day Sex Assigned at Date Recorded Not on file documented as of this encounter Last Filed Vital Signs Vital Sign Reading Time Taken Comments Blood Pressure 148/82 05/01/2020 1:55 PM TOPOGRAPHY TECHNICIAN Pulse 86 05/01/2020 1:55 PM TOPOGRAPHY TECHNICIAN Temperature 36.3 ??C (97.3 ??F) 05/01/2020 1:55 PM TOPOGRAPHY TECHNICIAN Respiratory Rate - - Oxygen Saturation [...] of this encounter Progress Notes Quynh Moreno P.A.-C., M.S. - 05/01/2020 1:45 PM CST SUBJECTIVE [...] Quynh Moreno P.A.-C. M.SJhon 05/01/2020 2:25 PM TOPOGRAPHY TECHNICIAN GRAPHY TECHNICIAN Associated attestation - Bethany Natarajan M.D. - 05/01/2020 4:43 PM TOPOGRAPHY TECHNICIAN I saw and evaluated the patient and [...]
--- OUTSIDE RECORDS SUMMARY | 2021-12-09 12:44 | XMS_ITS | Encounter Summary ---
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 [facility] Procedures Prior Auth Rad Tx [place] IMRT COMPLEX [address] [place] [address] Referral ID Status Reason Start Date Expiration Date Visits Requ ested Visits Authorized [id number] Closed 04/16/2020 04/16/2021 15 15 Encounter Details Date Type Department Care Team Description 05/02/2020 Hospital Encounter Department of Radiation [facility] I[facility] [place] [address] [facility] [address] [place] [phone] [phone] Social History Tobacco Use Types Packs/Day Years [...]
--- OUTSIDE RECORDS SUMMARY | 2021-12-09 12:44 | XMS_ITS | Encounter Summary ---
:1940 Author Organization [facility] Address [address] [place] [address] Care Team Providers Name Role Phone Unavailable Primary Care Provider Unavailable Encounter Details Date Type Department Care Team Description 02/12/2017 Hospital Encounter HX RST DERM SURG OP Avni Gaffney [facility] M.D. [address] [place] [address] (Wo rk) Social History Tobacco Use Types Packs/Day Years Used Date Smoking Tobacco: Never Assessed Sex Assigned at Date Recorded Not on file documented as of this encounter Last Filed Vital Signs Vital Sign Reading Time Taken Comments Blood Pressure 141/85 02/12/2017 8:05 AM DIRECTOR OF GLOBAL MARKETING Vital sign result from Clinical Notes. Pulse 89 02/12/2017 8:05 AM DIRECTOR OF GLOBAL MARKETING Vital sign result from Clinical Notes. Temperature [...]
--- OUTSIDE RECORDS SUMMARY | 2021-12-09 12:44 | XMS_ITS | Encounter Summary ---
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 [facility] Procedures Prior Auth Rad Tx [place] IMRT COMPLEX [address] [place] [address] Referral ID Status Reason Start Date Expiration Date Visits Requ ested Visits Authorized [id number] Closed 04/16/2020 04/16/2021 15 15 Encounter Details Date Type Department Care Team Description 04/30/2020 Hospital Encounter Department of Radiation Shaneka Natarajan I., [facility] [place] [address] [facility] [address] [place] [address] [phone] Social History Tobacco Use Types Packs/Day Years [...]
--- OUTSIDE RECORDS SUMMARY | 2021-12-09 12:44 | XMS_ITS | Encounter Summary ---
:1940 Author Organization [facility] Address [address] [place] [address] Care Team Providers Name Role Phone Unavailable Primary Care Provider Unavailable Reason for Visit Reason Comments Lab Monitoring Encounter Details Date Type Department Care Team Description 04/19/2020 Documentation Department of Radiation Deedee Fry, Lab Monitoring Oncology in [facility] [address] [facility] [address] [place] [address] [phone] (Wo rk) Social History Tobacco Use Types Packs/Day Years Used Date Smoking Tobacco: Every Day Sex Assigned at Date Recorded Not on file documented as of this encounter Progress Notes Deedee Fry RJhonN. - 04/19/2020 10:39 AM CST Lab result entered in AL BIOLOGIST documented in this encounter Plan of Treatment Not on filedocumented as of this encounter Procedures Procedure Name Priority Date/Time Associated Diagnosis Comme nts LABEXT SARS Routine 04/17/2020 12:00 AM Results for this CORONAVIRUS-2 ANIMAL BIOLOGIST procedure are in (COVID-19) RNA the results section. documented in this encounter Results EXT SARS Coronavirus-2 (COVID-19) RNA (04/17/2020 12:00 AM ANIMAL BIOLOGIST) [facility] Method Time Signature EXT Undetected Inconclus [facility] SARS-CoV-2 sylvia, LABORATORIES - RNA Indetermi [facility] elías, CAMPUS Invalid, Negative, Not Detected, Undetecte d, Other (specify in comment) Specimen (Source) Anatomical Location Collection Method / Collectio n Time Received Time / Laterality Volume Swab 04/17/2020 Bethany Natarajan M.D. LAB MICROBIOLOGY - GENERAL O RDERABLES Performing Organization Address City/State/ZIP Code Phon e Number [facility] LABORATORIES - [address] [place] [id number] 05 [facility] documented in this encounter Visit Diagnoses Not on filedocumented in this encounter
--- OUTSIDE RECORDS SUMMARY | 2021-12-09 12:44 | XMS_ITS | Encounter Summary ---
:1940 Author Organization [facility] Address [address] [place] [address] Care Team Providers Name Role Phone Unavailable [...] 12:35 Result s for this EXAM PM CHURN DRILL OPERATOR procedure are i n the results section. documented in this encounter Results DERMATOLOGY IMAGE EXAM (02/12/2017 12:35 PM CHURN DRILL OPERATOR) Specimen (Source) Anatomical Collection Method Collection Time Re ceived Time Location / / Volume Laterality 02/12/2017 12:00 PM CHURN DRILL OPERATOR Narrative IIMS - 02/12/2017 2:50 PM CHURN DRILL OPERATOR This order has been created and [...]
--- OUTSIDE RECORDS SUMMARY | 2021-12-09 12:44 | XMS_ITS | Encounter Summary ---
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 [facility] Procedures Prior Auth Rad Tx [place] IMRT COMPLEX [address] [place] [address] Referral ID Status Reason Start Date Expiration Date Visits Requ ested Visits Authorized [id number] Closed 04/16/2020 04/16/2021 15 15 Encounter Details Date Type Department Care Team Description 05/09/2020 Hospital Encounter Department of Radiation Shaneka Natarajan I., [facility] [place] [address] [facility] [address] [place] [phone] [phone] Social History Tobacco Use Types Packs/Day Years [...]
--- OUTSIDE RECORDS SUMMARY | 2021-12-09 12:44 | XMS_ITS | Encounter Summary ---
:1940 Author Organization [facility] Address [address] [place] [address] Care Team Providers Name Role Phone Unavailable [...] 04/16/2020 1:25 PM Re sults for this SPECIAL SHOPPER procedure are i n the results section. documented in this encounter Results Pelvis-Oncology Image Exam (04/16/2020 1:25 PM SPECIAL SHOPPER) Specimen (Source) Anatomical Collection Method Collection Time Re ceived Time Location / / Volume Laterality 04/16/2020 1:25 PM SPECIAL SHOPPER Narrative IIMS - 04/16/2020 1:28 PM SPECIAL SHOPPER This order has been created and auto-finalized [...]
--- OUTSIDE RECORDS SUMMARY | 2021-12-09 12:44 | XMS_ITS | Encounter Summary ---
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 [facility] Procedures Management Visit [address] [place], [place] [address] Referral ID Status Reason Start Date Expiration Date Visits V isits Requested Authorized [id number] Canceled 04/10/2020 04/10/2021 5 5 Encounter Details Date Type Department Care Team Description 05/07/2020 Hospital Encounter Department of Garrison Casas Neoplasm Of Lower Limb Basal Cell Carcinoma Left; Radiation Oncology Corinne Cabello 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; in [place], [address] [place] [address] Malignant Neoplasm Of Lower Limb Basal C ell Carcinoma Right [place], [place] [address] [facility] [address] [place], [place] [phone] (Work) [phone] Social History Tobacco Use Types Packs/Day Years [...] I provided patient with Moist Skin Reaction [id number] pamphlet yesterday. I encouraged him to [...] M.D. 05/07/2020 4:51 PM CDT [facility] [address] [place] [address] documented in this encounter Plan of Treatment [...]
--- OUTSIDE RECORDS SUMMARY | 2021-12-09 12:44 | XMS_ITS | Encounter Summary ---
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 [facility] Procedures Prior Auth Rad Tx [place] IMRT COMPLEX [address] [place] [address] Referral ID Status Reason Start Date Expiration Date Visits Requ ested Visits Authorized [id number] Closed 04/16/2020 04/16/2021 15 15 Encounter Details Date Type Department Care Team Description 05/07/2020 Hospital Encounter Department of Radiation Shaneka Natarajan I., [facility] [place] [address] [facility] [address] [place] [address] [phone] Social History Tobacco Use Types Packs/Day Years [...]
--- OUTSIDE RECORDS SUMMARY | 2021-12-09 12:44 | XMS_ITS | Encounter Summary ---
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 [facility] Procedures Prior Auth Rad Tx MA IMRT COMPLEX [address] [place] [address] Referral ID Status Reason Start Date Expiration Date Visits Requ ested Visits Authorized [id number] Closed 04/16/2020 04/16/2021 15 15 Encounter Details Date Type Department Care Team Description 05/14/2020 Hospital Encounter Department of Radiation hSaneka Natarajan I., [facility] [place] [address] [facility] [address] [place] [phone] [phone] Social History Tobacco Use Types Packs/Day Years [...]
--- OUTSIDE RECORDS SUMMARY | 2021-12-09 12:44 | XMS_ITS | Encounter Summary ---
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 [facility] Procedures Prior Auth Rad Tx [place] IMRT COMPLEX [address] [place] [address] Referral ID Status Reason Start Date Expiration Date Visits Requ ested Visits Authorized [id number] Closed 04/16/2020 04/16/2021 15 15 Encounter Details Date Type Department Care Team Description 04/25/2020 Hospital Encounter Department of Radiation [facility]., [facility] [place] [address] [facility] [address] [place] [phone] [phone] Social History Tobacco Use Types Packs/Day Years [...]
--- OUTSIDE RECORDS SUMMARY | 2021-12-09 12:44 | XMS_ITS | Encounter Summary ---
:1940 Author Organization [facility] Address [address] [place] [address] Care Team Providers Name Role Phone Unavailable Primary Care Provider Unavailable Reason for Referral Outpatient (Routine) - Closed Specialty Diagnoses / Procedures Referred By Contact Refer red To Contact Diagnoses Swelling Testicle Garrison Casas M.D. 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 [facility] Region Procedures Management Visit [address] [place] [address] Referral ID Status Reason Start Date Expiration Date Visits V isits Requested Authorized [id number] Canceled 04/10/2020 04/10/2021 5 5 Encounter Details Date Type Department Care Team Description 05/08/2020 Hospital Encounter Department of Garrison Casas ing Testicle (Primary Dx); Radiation Oncology Corinne Cabello Malignant Neoplasm Of Lower Limb Basal C ell Carcinoma Left; in [place], [facility] [address] [facility] 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; [place], [place] Malignant Neoplasm Of Lower Limb Basal Cell Carcinoma Right [address] [facility] [address] [place], [place] [phone] (Work) [phone] Social History Tobacco Use Types Packs/Day Years [...] Garrison Casas M.D. 05/08/2020 2:54 PM CDT [facility] Radiation Therapy Center [address] [place] [address] documented in this encounter Plan of Treatment [...]
--- OUTSIDE RECORDS SUMMARY | 2021-12-09 12:44 | XMS_ITS | Encounter Summary ---
:1940 Author Organization [facility] Address [address] [place] [address] Care Team Providers Name Role Phone Unavailable Primary Care Provider Unavailable Reason for Referral Specialty Diagnoses / Procedures Referred By Contact Refer red To Contact Bethany Natarajan M.D. 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 [facility] [place] [facility] Procedures Initial Rad Onc Treatment Planning CT Simulation [address] [place] [address] Referral ID Status Reason Start Date Expiration Date Visits Requ ested Visits Authorized [id number] Closed 04/10/2020 04/10/2021 1 1 L STOCK FACER Encounter Details Date Type Department Care Team Description 04/10/2020 Orders Only Department of Bethany Natarajan Malignant N eoplasm Of Lower Limb Basal Cell Carcinoma Left (Primary Dx); Radiation Oncology in [place] Adhikari 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; [place] [address] [facility] Malignant Neoplasm Of Lower Limb Basal C ell Carcinoma Right [address] [place] [phone] Social History Tobacco Use Types Packs/Day Years [...] Treatment Planning CT Simulation (04/16/2020 2:00 PM SMALL STOCK FACER) Specimen (Source) Anatomical Location Collection Method / Collectio n Time Received Time / Laterality Volume Narrative LAYO METZ - 04/16/2020 2:00 PM SMALL STOCK FACER Coral Alonso RTT ? 04/16/2020 ??4:02 PM Initial Rad Onc Treatment Planning CT Si mulation Date/Time: 04/16/2020 3:57 PM Performed by: Bethany Natarajan M.D. Authorized by: Bethany Natarajan M.D. Bethany Natarajan M.D. RADIATION ONCOLOGY ORDERABLE S Performing Organization Address City/State/ZIP Code Phon e Number [place] documented in this encounter Visit Diagnoses [...]
--- OUTSIDE RECORDS SUMMARY | 2021-12-09 12:44 | XMS_ITS | Encounter Summary ---
:1940 Author Organization [facility] Address [address] [place] [address] Care Team Providers Name Role Phone Unavailable Primary Care Provider Unavailable Reason for Referral Outpatient (Routine) - Closed Specialty Diagnoses / Procedures Referred By Contact Refer red To Contact Radiation Oncology Bethany Natarajan [facility] Jason Sun [address] [place] [address] Referral ID Status Reason Start Date Expiration Date Visits Requ ested Visits Authorized [id number] Closed 05/15/2020 05/15/2021 1 1 Scheduling Instructions Deedee first to assess skin Radiation Therapy (Routine) - Canceled Specialty Diagnoses / Procedures Referred By Contact Refer red To Contact Diagnoses 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 [facility] Procedures Management Visit [address] [place], [place] [address] Referral ID Status Reason Start Date Expiration Date Visits V isits Requested Authorized [id number] Canceled 04/10/2020 04/10/2021 5 5 Reason for [...] CENTER Region Procedures Management Visit [address] [place] [address] Referral ID Status Reason Start Date Expiration Date Visits V isits Requested Authorized [id number] Canceled 04/10/2020 04/10/2021 5 5 Encounter Details Date Type Department Care Team Description 05/15/2020 Hospital Encounter Department of Bethany Natarajan Neoplasm Of Lower Limb Basal Cell Carcinoma Left; Radiation Oncology Corinne Adhikari 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; in [place], [address] [facility] Malignant Neoplasm Of Lower Limb Basal C ell Carcinoma Right [place], [place] [address] [facility] [address] [place], [place] [phone] (Work) [phone] Social History Tobacco Use Types Packs/Day Years [...] 2020 to complete skin assessment. Radiation Oncology [place] can be contacted at anytime for any questions or concerns. Patient stated a full understanding to the plan of care discussed today. Toxicities reviewed with Dr. Natarajan today. Signed by: Deedee Fry R.N. 05/15/2020 2:59 PM CDT [facility] Radiation Therapy Center [address] [place] [address] documented in this encounter Plan of Treatment [...]
--- OUTSIDE RECORDS SUMMARY | 2021-12-09 12:44 | XMS_ITS | Encounter Summary ---
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 [facility] Procedures Prior Auth Rad Tx [place] IMRT COMPLEX [address] [place] [address] Referral ID Status Reason Start Date Expiration Date Visits Requ ested Visits Authorized [id number] Closed 04/16/2020 04/16/2021 15 15 Encounter Details Date Type Department Care Team Description 04/26/2020 Hospital Encounter Department of Radiation Shaneka Natarajan I., [facility] [place] [address] [facility] [address] [place] [address] [phone] Social History Tobacco Use Types Packs/Day Years [...]
--- OUTSIDE RECORDS SUMMARY | 2021-12-09 12:44 | XMS_ITS | Encounter Summary ---
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 [facility] Procedures Management Visit [address] [place], [place] [address] Referral ID Status Reason Start Date Expiration Date Visits V isits Requested Authorized [id number] Canceled 04/10/2020 04/10/2021 5 5 Encounter Details Date Type Department Care Team Description 04/26/2020 Hospital Encounter Department of Bethany Natarajan 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; in [place], [facility] Malignant Neoplasm Of Lower Limb Basal C ell Carcinoma Right [place], [place] [address] [facility] [address] [place], [place] [phone] (Work) [phone] Social History Tobacco Use Types Packs/Day Years Used Date Smoking Tobacco: Every Day Sex Assigned at Date Recorded Not on file documented as of this encounter Last Filed Vital Signs Vital Sign Reading Time Taken Comments Blood Pressure 156/86 04/26/2020 2:31 PM YOUTH SUPPORT WORKER Pulse 92 04/26/2020 2:31 PM YOUTH SUPPORT WORKER Temperature 36.9 ??C (98.5 ??F) 04/26/2020 2:31 PM YOUTH SUPPORT WORKER Respiratory Rate - - Oxygen Saturation - - Inhaled Oxygen Concentration - - Weight 95.5 kg (210 lb 8.6 oz) 04/26/2020 2:31 PM YOUTH SUPPORT WORKER Height - - Body Mass Index - [...] 700 1400 3500 04/24/2020 04/25/2020 1 F1_RTInguinal 664 264 5586 04/24/2020 04/25/2020 1 F1_LT Leg 763 675 0855 04/24/2020 04/25/2020 1 Course Summary 04/24/2020 04/25/2020 [...] by: Deedee Fry R.N. 04/26/2020 2:54 PM YOUTH SUPPORT WORKER ATTESTATION FOR MANAGEMENT VISIT I saw and evaluated the patient and participated in the gregory portions of the service as noted above. I reviewed the documentation of Ms. Deedee Fry RN and agree with the findings and plan. The patient appears well on exam. We will continue with radiation as planned and monitor weekly. Bethany Natarajan M.D., 04/26/2020 H SUPPORT WORKER documented in this encounter Plan of Treatment [...]
--- OUTSIDE RECORDS SUMMARY | 2021-12-09 12:44 | XMS_ITS | Encounter Summary ---
:1940 Author Organization [facility] Address [address] [place] [address] Care Team Providers Name Role Phone Unavailable Primary Care Provider Unavailable Reason for Visit Appointment Request (Routine) - Closed Specialty Diagnoses / Procedures Referred By Contact Refer red To Contact Radiation Oncology Diagnoses Malignant Neoplasm Of Skin Basal Cell Carcinoma Malignant Neoplasm Of Skin Squamous Cell Carcinoma Annita Jay M.D. [address] [place] [address] Referral ID Status Reason Start Date Expiration Date Visits Requ ested Visits Authorized [id number] Closed 03/08/2020 03/08/2021 1 1 Encounter Details Date Type Department Care Team Description 04/16/2020 Hospital Encounter Department of Bethany Natarajan Neoplasm Of Lower Limb Basal Cell Carcinoma Left (Primary Dx); Radiation Oncology Corinne Adhikari Malignant Neoplasm Of Lower Limb Basal C ell Carcinoma Right; in [place], [address] [place] [address] 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 [place], [place] [address] [facility] [address] [place], [place] [phone] (Work) [phone] Social History Tobacco Use Types Packs/Day Years Used Date Smoking Tobacco: Every Day Sex Assigned at Date Recorded Not on file documented as of this encounter Last Filed Vital Signs Vital Sign Reading Time Taken Comments Blood Pressure 124/76 04/16/2020 12:50 PM SURGERY TECHNICIAN Pulse 93 04/16/2020 12:50 PM SURGERY TECHNICIAN Temperature 37.2 ??C (99 ??F) 04/16/2020 12:50 PM SURGERY TECHNICIAN Respiratory Rate - - Oxygen Saturation - - Inhaled Oxygen Concentration - - Weight 95.5 kg (210 lb 8.6 oz) 04/16/2020 12:50 PM SURGERY TECHNICIAN Height - - Body Mass Index [...] surgery, nose SOCIAL HISTORY He lives in [place], [place]. He lives at [place] in an apartment. He is single. 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 He is mobile with [...] Photos were taken and are available in [email or web address] after obtaining consent. He has a 1.5 [...] We discussed the acute as well as stage hand risks, including, but not limited to fatigue, [...] by: Bethany Natarajan M.D. 04/16/2020 4:52 PM SURGERY TECHNICIAN Radiation Oncology [facility] Radiation Therapy Center [facility] [place] [id number] ERY TECHNICIAN documented in this encounter Miscellaneous Notes Addendum Note - Mame Amezquita - 04/16/2020 1:00 PM SURGERY TECHNICIAN Encounter addended by: Mame Amezquita on: 04/17/2020 8:34 AM Actions taken: Letter saved ERY TECHNICIAN documented in this encounter Plan of Treatment Not on filedocumented as of this encounter Visit Diagnoses Diagnosis Malignant Neoplasm Of Lower Limb Basal C ell Carcinoma Left - Primary Malignant Neoplasm Of Lower Limb Basal C ell Carcinoma Right 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
--- OUTSIDE RECORDS SUMMARY | 2021-12-09 12:45 | XMS_ITS | Encounter Summary ---
:1940 Author Organization [facility] Address [address] [place] [address] Care Team Providers Name Role Phone Unavailable [...] 12:15 Result s for this EXAM PM REFERRAL MANAGER procedure are i n the results section. documented in this encounter Results DERMATOLOGY IMAGE EXAM (02/12/2017 12:15 PM REFERRAL MANAGER) Specimen (Source) Anatomical Collection Method Collection Time Re ceived Time Location / / Volume Laterality 02/12/2017 12:00 PM REFERRAL MANAGER Narrative [facility] - 02/12/2017 2:49 PM REFERRAL MANAGER This order has been created and [...]
--- OUTSIDE RECORDS SUMMARY | 2021-12-09 12:45 | XMS_ITS | Encounter Summary ---
:1940 Author Organization [facility] Address [address] [place] [address] Care Team Providers Name Role Phone Unavailable [...] 12:10 Result s for this EXAM PM HEM MARKER procedure are i n the results section. documented in this encounter Results DERMATOLOGY IMAGE EXAM (02/12/2017 12:10 PM HEM MARKER) Specimen (Source) Anatomical Collection Method Collection Time Re ceived Time Location / / Volume Laterality 02/12/2017 12:00 PM HEM MARKER Narrative [facility] - 02/12/2017 2:49 PM HEM MARKER This order has been created and auto-finalized [...]
--- OUTSIDE RECORDS SUMMARY | 2021-12-09 12:45 | XMS_ITS | Encounter Summary ---
:1940 Author Organization [facility] Address [address] [place] [address] Care Team Providers Name Role Phone Unavailable [...] 12:25 Result s for this EXAM PM COMMISSION ASSOCIATE procedure are i n the results section. documented in this encounter Results DERMATOLOGY IMAGE EXAM (02/12/2017 12:25 PM COMMISSION ASSOCIATE) Specimen (Source) Anatomical Collection Method Collection Time Re ceived Time Location / / Volume Laterality 02/12/2017 12:00 PM COMMISSION ASSOCIATE Narrative [facility] - 02/12/2017 2:50 PM COMMISSION ASSOCIATE This order has been created and [...]
--- OUTSIDE RECORDS SUMMARY | 2021-12-09 12:45 | XMS_ITS | Encounter Summary ---
:1940 Author Organization [facility] Address [address] [place] [address] Care Team Providers Name Role Phone Unavailable [...] 12:20 Result s for this EXAM PM PUBLIC RELATIONS SALES MARKETING procedure are i n the results section. documented in this encounter Results DERMATOLOGY IMAGE EXAM (02/12/2017 12:20 PM PUBLIC RELATIONS SALES MARKETING) Specimen (Source) Anatomical Collection Method Collection Time Re ceived Time Location / / Volume Laterality 02/12/2017 12:00 PM PUBLIC RELATIONS SALES MARKETING Narrative [facility] - 02/12/2017 2:49 PM PUBLIC RELATIONS SALES MARKETING This order has been created and auto-finalized [...]
--- OUTSIDE RECORDS SUMMARY | 2021-12-09 12:46 | XMS_ITS | Encounter Summary ---
:1940 Author Organization [facility] Address [address] [place] [address] Care Team Providers Name Role Phone Unavailable [...] 12:00 Result s for this EXAM PM WEIGHT AND TEST BAR CLERK procedure are i n the results section. documented in this encounter Results DERMATOLOGY IMAGE EXAM (01/19/2017 12:00 PM WEIGHT AND TEST BAR CLERK) Specimen (Source) Anatomical Location Collection Method / Collectio n Time Received Time / Laterality Volume Narrative [facility] - 01/19/2017 4:19 PM WEIGHT AND TEST BAR CLERK This order has been created and auto-finalized [...]
--- OUTSIDE RECORDS SUMMARY | 2021-12-09 12:46 | XMS_ITS | Encounter Summary ---
:1940 Author Organization [facility] Address [address] [place] [address] Care Team Providers Name Role Phone Unavailable [...] 12:05 Result s for this EXAM PM FOREIGN EXCHANGE TRADER procedure are i n the results section. documented in this encounter Results DERMATOLOGY IMAGE EXAM (02/12/2017 12:05 PM FOREIGN EXCHANGE TRADER) Specimen (Source) Anatomical Collection Method Collection Time Re ceived Time Location / / Volume Laterality 02/12/2017 12:00 PM FOREIGN EXCHANGE TRADER Narrative [facility] - 02/12/2017 2:49 PM FOREIGN EXCHANGE TRADER This order has been created and auto-finalized [...]
--- OUTSIDE RECORDS SUMMARY | 2021-12-09 12:46 | XMS_ITS | Encounter Summary ---
:[address] [facility] Address [address] [place] [address] Care Team Providers Name Role Phone Unavailable [...] 12:00 Result s for this EXAM PM WEATHERIZATION FIELD TECHNICIAN procedure are i n the results section. documented in this encounter Results DERMATOLOGY IMAGE EXAM (02/12/2017 12:00 PM WEATHERIZATION FIELD TECHNICIAN) Specimen (Source) Anatomical Collection Method Collection Time Re ceived Time Location / / Volume Laterality 02/12/2017 12:00 PM WEATHERIZATION FIELD TECHNICIAN Narrative [facility] - 02/12/2017 2:49 PM WEATHERIZATION FIELD TECHNICIAN This order has been created and [...]
== END 2021-12-09 12:42 | disposition home or self-care (01) ==
LOC: WOUND 12:42
PROVIDERS: PCP Family Medicine; Visit Provider Nurse Practitioner Family
DX: L59.8 Other specified disorders of the skin and subcutaneous tissue related to radiation (principal); Z99.3 Dependence on wheelchair
CPT/HCPCS: 11042

== ENCOUNTER 2021-12-23 12:54 | Outpatient (CLI) | payer OTHER, SELFPAY ==
--- OUTSIDE RECORDS SUMMARY | 2021-12-23 13:04 | XMS_ITS | Clinical Summary ---
:1940 Author Organization [facility] [place] [address] Care Team Providers Name Role Phone Alfredo [...] was well controlled her e on dilaudid INTERNATIONAL STUDENT ADVISOR on following regimen: 0 04/16/2014 Active mg/mL inj LOADING DOSE: 0.2 mg for 1 dose INTERNATIONAL STUDENT ADVISOR BOLUS DOSE: 0.2-0.3 mg LOCKOUT INTERVAL: 10 [...] elationship: Life Partner Secondary Health Care Agent: Morrisma p: Phone: Conservator: Relationship: Phone: Guardian: Relationship: [...] 3-15-10 05/06/2009 Cardiomyopathy , ischemic; old inf [place] 05/02/2009 Overview: Per preop, EF of 39% [...] Comments Blood Pressure 123/73 04/16/2014 2:19 PM GRINDING MACHINE OPERATOR AUTOMATIC Pulse 115 04/16/2014 2:19 PM GRINDING MACHINE OPERATOR AUTOMATIC Temperature 38.3 ??C (100.9 ??F) 04/16/2014 3:30 PM GRINDING MACHINE OPERATOR AUTOMATIC Respiratory Rate 20 04/16/2014 2:19 PM GRINDING MACHINE OPERATOR AUTOMATIC Oxygen Saturation 94% 04/16/2014 2:19 PM GRINDING MACHINE OPERATOR AUTOMATIC Inhaled Oxygen Concentration - - Weight 86.1 kg (189 lb 13.1 oz) 04/16/2014 5:00 AM GRINDING MACHINE OPERATOR AUTOMATIC Height 180.3 cm (5' 10.98) 04/02/2014 12:00 AM GRINDING MACHINE OPERATOR AUTOMATIC Body Mass Index 26.49 04/02/2014 12:00 AM GRINDING MACHINE OPERATOR AUTOMATIC Plan of Treatment Health Maintenance Due Date [...] 65+ 10/23/2021 Medical Devices Implanted Type Area Inspector Open Die Device Shelf Model / Identifier Expiration Serial / Date Lot Screw Self Drilling 3.5x15mm - [id number] N/A: Spine SOFAMOR DANEK [id number] / Implanted: Qty: 4 on 06/24/2010 at [facility] / Humeral Tray Left: [id number] / Implanted: Qty: 1 on 03/17/2012 at [facility] Shoulder / [id number] Description: HUMERAL TRAY Explanted Type Area Inspector Open Die Device Shelf Model / Identifier Expiration Serial / Date Lot Patch Vasc 0.8x8cm Xenosure Biological Pericardial - [id number] Right: Lemaitre 0.8P8# / Explanted: Qty: 1 on 03/09/2014 at [facility] [employer] / [id number] Results Not on filefrom Last 3 Months Insurance Payer Benefit Plan / Subscriber ID Effective Dates Phone Addre ss Type Group MARICEL CONNELLY [facility] [id number] 2015-Present [address] [place] [address] Guarantor Name Account Type Relation to Date of Phone Bill ing Patient Address Tl Lugo Personal/Family Self 1940 [phone] (Home) [place] [address] Advance Directives Documents on File Type Date Recorded 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
--- OUTSIDE RECORDS SUMMARY | 2021-12-23 13:05 | XMS_ITS | Encounter Summary ---
:1940 Author Organization [facility] Address [address] [place] [address] Care Team Providers Name Role Phone Unavailable Primary Care Provider Unavailable Reason for Visit Reason Comments Med Refill Encounter Details Date Type Department Care Team Description 07/09/2020 Clinical Communication Department of Bethany Natarajan ed [facility] [address] [facility] [address] [place] [phone] Social History Tobacco Use Types Packs/Day Years [...] would like a refill today. Phone number: [phone] Is it okay to leave a voicemail on answering machine with test results? Yes Pharmacy (if medication related): [facility] [address] [place] [address] [address] [facility] [address] [facility] [id number] Paula Hall documented in this encounter Plan of Treatment Not on filedocumented as of this encounter Visit Diagnoses Not on filedocumented in this encounter
--- OUTSIDE RECORDS SUMMARY | 2021-12-23 13:05 | XMS_ITS | Encounter Summary ---
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 [facility] Procedures Prior Auth Rad Tx [place] IMRT COMPLEX [address] [place] [address] Referral ID Status Reason Start Date Expiration Date Visits Requ ested Visits Authorized [id number] Closed 04/16/2020 04/16/2021 15 15 Encounter Details Date Type Department Care Team Description 04/26/2020 Hospital Encounter Department of Radiation Shaneka Natarajan I., [facility] [place] [address] [facility] [address] [place] [phone] [phone] Social History Tobacco Use Types Packs/Day Years [...]
--- OUTSIDE RECORDS SUMMARY | 2021-12-23 13:05 | XMS_ITS | Encounter Summary ---
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 [facility] Procedures Prior Auth Rad Tx [place] IMRT COMPLEX [address] [place] [address] Referral ID Status Reason Start Date Expiration Date Visits Requ ested Visits Authorized [id number] Closed 04/16/2020 04/16/2021 15 15 Encounter Details Date Type Department Care Team Description 05/07/2020 Hospital Encounter Department of Radiation Shaneka Natarajan I., [facility] [place] [address] [facility] [address] [place] [phone] [phone] Social History Tobacco Use Types Packs/Day Years [...]
--- OUTSIDE RECORDS SUMMARY | 2021-12-23 13:05 | XMS_ITS | Encounter Summary ---
:1940 Author Organization [facility] Address [address] [place] [address] Care Team Providers Name Role Phone Unavailable Primary Care Provider Unavailable Reason for Referral Specialty Diagnoses / Procedures Referred By Contact Refer red To Contact Bethany Natarajan M.D. [facility] [address] [place] [phone] Referral ID Status Reason Start Date Expiration Date Visits Requ ested Visits Authorized NTAMINATOR Encounter Details Date Type Department Care Team Description 04/30/2020 - Hospital Encounter Department of Aramis Natarajan M.D. 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
--- OUTSIDE RECORDS SUMMARY | 2021-12-23 13:05 | XMS_ITS | Encounter Summary ---
:1940 Author Organization [facility] Address [address] [place] [address] Care Team Providers Name Role Phone Unavailable Primary Care Provider Unavailable Reason for Referral Outpatient (Routine) - Closed Specialty Diagnoses / Procedures Referred By Contact Refer red To Contact Radiation Oncology Bethany Natarajan [facility] M.[facility]. [address] [place] [address] Referral ID Status Reason Start Date Expiration Date Visits Requ ested Visits Authorized [id number] Closed 05/28/2020 05/28/2021 1 1 Scheduling Instructions 2-3 weeks with [facility] Outpatient (Routine) - Closed Specialty Diagnoses / Procedures Referred By Contact Refer red To Contact Radiation Oncology Bethany Natarajan [facility] M.D. [address] [place] [address] Referral ID Status Reason Start Date Expiration Date Visits Requ ested Visits Authorized [id number] Closed 05/15/2020 05/15/2021 1 1 Scheduling Instructions Deedee first to assess skin Reason for Visit Outpatient (Routine) - Closed Specialty Diagnoses / Procedures Referred By Contact Refer red To Contact Radiation Oncology Bethany Natarajan [facility] M.D. 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 05/28/2020 1:16 PM CDT [facility] [address] [place] [address] ATTESTATION FOR FOLLOW-UP VISIT I saw and [...]
--- OUTSIDE RECORDS SUMMARY | 2021-12-23 13:05 | XMS_ITS | Encounter Summary ---
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 [facility] Procedures Prior Auth Rad Tx [place] IMRT COMPLEX [address] [place] [address] Referral ID Status Reason Start Date Expiration Date Visits Requ ested Visits Authorized [id number] Closed 04/16/2020 04/16/2021 15 15 Encounter Details Date Type Department Care Team Description 05/03/2020 Hospital Encounter Department of Radiation Shaneka Natarajan I., [facility] [place] [address] [facility] [address] [place] [phone] [phone] Social History Tobacco Use Types Packs/Day Years [...]
--- OUTSIDE RECORDS SUMMARY | 2021-12-23 13:05 | XMS_ITS | Encounter Summary ---
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 [facility] Procedures Prior Auth Rad Tx [place] IMRT COMPLEX [address] [place] [address] Referral ID Status Reason Start Date Expiration Date Visits Requ ested Visits Authorized [id number] Closed 04/16/2020 04/16/2021 15 15 Encounter Details Date Type Department Care Team Description 04/30/2020 Hospital Encounter Department of Radiation Shaneka Natarajan I., [facility] [place] [address] [facility] [address] [place] [phone] [phone] Social History Tobacco Use Types Packs/Day Years [...]
--- OUTSIDE RECORDS SUMMARY | 2021-12-23 13:05 | XMS_ITS | Encounter Summary ---
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
--- OUTSIDE RECORDS SUMMARY | 2021-12-23 13:05 | XMS_ITS | Encounter Summary ---
:1940 Author Organization [facility] Address [address] [place] [address] Care Team Providers Name Role Phone Unavailable Primary Care Provider Unavailable Encounter Details Date Type Department Care Team Description 07/10/2020 Clinical Communication Department of Bethayn Natarajan Radiation Oncology in [facility] Adhik[facility] [address] [facility] [address] [place] [phone] Social History Tobacco Use Types Packs/Day Years [...] informed him that a prescription for the [place] has been sent to the [facility] in [place]. Phone number: [phone] Is it okay to leave a voicemail on answering machine with test results? Yes Pharmacy (if medication related): N/A Elif Parkinson documented in this encounter Plan of Treatment Not on filedocumented as of this encounter Visit Diagnoses Not on filedocumented in this encounter
--- OUTSIDE RECORDS SUMMARY | 2021-12-23 13:05 | XMS_ITS | Encounter Summary ---
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 [facility] Procedures Prior Auth Rad Tx [place] IMRT COMPLEX [address] [place] [address] Referral ID Status Reason Start Date Expiration Date Visits Requ ested Visits Authorized [id number] Closed 04/16/2020 04/16/2021 15 15 Encounter Details Date Type Department Care Team Description 04/25/2020 Hospital Encounter Department of Radiation Shaneka Natarajan I., Oncology [facility] [place] [facility] [place] [address] [facility] [address] [place] [phone] [phone] Social History Tobacco Use Types Packs/Day Years [...]
--- OUTSIDE RECORDS SUMMARY | 2021-12-23 13:05 | XMS_ITS | Encounter Summary ---
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 [facility] Procedures Prior Auth Rad Tx [place] IMRT COMPLEX [address] [place] [address] Referral ID Status Reason Start Date Expiration Date Visits Requ ested Visits Authorized [id number] Closed 04/16/2020 04/16/2021 15 15 Encounter Details Date Type Department Care Team Description 05/06/2020 Hospital Encounter Department of Radiation Shaneka Natarajan I., [facility] in [facility] [place] [address] [facility] [address] [place] [phone] [phone] Social History Tobacco Use Types Packs/Day Years [...]
--- OUTSIDE RECORDS SUMMARY | 2021-12-23 13:05 | XMS_ITS | Encounter Summary ---
:1940 Author Organization [facility] Address [address] [place] [address] Care Team Providers Name Role Phone Unavailable Primary Care Provider Unavailable Reason for Visit Reason Comments Med Refill Encounter Details Date Type Department Care Team Description 08/08/2020 Clinical Communication Department of Travis Hall Refjoanne Radiation [facility] [address] [place] [phone] Social History Tobacco Use Types Packs/Day Years Used Date Smoking Tobacco: Every Day Sex Assigned at Date Recorded Not on file documented as of this encounter Miscellaneous Notes Telephone Encounter - Deedee Fry R.N. - 08/08/2020 1:06 PM CDT Information Discussed I called and left voicemail on patient's phone requesting call back. Patient reported that he was taking Coventry twice a day at his last in office visit with us. PLAN Dr. Natarajan and I will send through refill on Coventry to get him through until August 16, 2020, when he is scheduled for follow up with Dr. Natarajan in [place]. Disposition/Recommendation: I requested call back, refill will [...] can be done or not Phone number: [phone] Is it okay to leave a voicemail on answering machine with test results? Yes Pharmacy (if medication related): [facility] [address] [place] [address] Paula Hall documented in this encounter Plan of Treatment Not on filedocumented as of this encounter Visit Diagnoses Not on filedocumented in this encounter
--- OUTSIDE RECORDS SUMMARY | 2021-12-23 13:05 | XMS_ITS | Clinical Summary ---
:1940 Author Organization [facility] Address [address] [place] [address] Care Team Providers Name Role Phone Unavailable Primary Care Provider Unavailable Source Comments Patient records contain information from all sites at [facility]. For routine questions regarding patient records, call [phone] during business hours, M-F 8:00 AM - 5:00 PM Central Time. Record requests for emergency care only can be directed to [phone] at any time.[facility] Allergies Active Allergy Reactions Severity Noted Date [...] Phone Addre ss Type Group [facility] [id number] 2021-Present [phone] [address] [place] [address]
--- OUTSIDE RECORDS SUMMARY | 2021-12-23 13:05 | XMS_ITS | Encounter Summary ---
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 [facility] Procedures Prior Auth Rad Tx [place] IMRT COMPLEX [address] [place] [address] Referral ID Status Reason Start Date Expiration Date Visits Requ ested Visits Authorized [id number] Closed 04/16/2020 04/16/2021 15 15 Encounter Details Date Type Department Care Team Description 05/14/2020 Hospital Encounter Department of Radiation Shaneka Natarajan I., [facility] [place] [address] [facility] [address] [place] [phone] [phone] Social History Tobacco Use Types Packs/Day Years [...]
--- OUTSIDE RECORDS SUMMARY | 2021-12-23 13:05 | XMS_ITS | Encounter Summary ---
:1940 Author Organization [facility] Address [address] [place] [address] Care Team Providers Name Role Phone Unavailable [...] Bethany Natarajan M.D. 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; in [place], [facility] Malignant Neoplasm Of Lower Limb Basal C ell Carcinoma Right [place], [place] [address] [facility] [address] [place], [place] [phone] [address] (Work) [phone] Social History Tobacco Use Types Packs/Day Years Used Date Smoking Tobacco: Every Day Sex Assigned at Date Recorded Not on file documented as of this encounter Last Filed Vital Signs Vital Sign Reading Time Taken Comments Blood Pressure 156/86 04/26/2020 2:31 PM COMMERCIAL STRIPPER Pulse 92 04/26/2020 2:31 PM COMMERCIAL STRIPPER Temperature 36.9 ??C (98.5 ??F) 04/26/2020 2:31 PM COMMERCIAL STRIPPER Respiratory Rate - - Oxygen Saturation - - Inhaled Oxygen Concentration - - Weight 95.5 kg (210 lb 8.6 oz) 04/26/2020 2:31 PM COMMERCIAL STRIPPER Height - - Body Mass Index - [...] 700 1400 3500 04/24/2020 04/25/2020 1 F1_RTInguinal 132 644 1095 04/24/2020 04/25/2020 1 F1_LT Leg 068 607 3236 04/24/2020 04/25/2020 1 Course Summary 04/24/2020 04/25/2020 [...] radiation treatment as planned. Signed by: Deedee rFy R.N. 04/26/2020 2:54 PM COMMERCIAL STRIPPER ATTESTATION FOR MANAGEMENT VISIT I saw and evaluated the patient and participated in the gregory portions of the service as noted above. I reviewed the documentation of Ms. Deedee Fry RN and agree with the findings and plan. The patient appears well on exam. We will continue with radiation as planned and monitor weekly. Bethany Natarajan M.D., 04/26/2020 ERCIAL STRIPPER documented in this encounter Plan of Treatment [...]
--- OUTSIDE RECORDS SUMMARY | 2021-12-23 13:05 | XMS_ITS | Encounter Summary ---
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 [facility] Procedures Prior Auth Rad Tx [place] IMRT COMPLEX [address] [place] [address] Referral ID Status Reason Start Date Expiration Date Visits Requ ested Visits Authorized [id number] Closed 04/16/2020 04/16/2021 15 15 Encounter Details Date Type Department Care Team Description 05/13/2020 Hospital Encounter Department of Radiation Shaneka Natarajan I., [facility] [place] [address] [facility] [address] [place] [phone] [phone] Social History Tobacco Use Types Packs/Day Years [...]
--- OUTSIDE RECORDS SUMMARY | 2021-12-23 13:05 | XMS_ITS | Encounter Summary ---
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 [facility] Procedures Prior Auth Rad Tx [place] IMRT COMPLEX [address] [place] [address] Referral ID Status Reason Start Date Expiration Date Visits Requ ested Visits Authorized [id number] Closed 04/16/2020 04/16/2021 15 15 Encounter Details Date Type Department Care Team Description 04/29/2020 Hospital Encounter Department of Radiation Shaneka Natarajan I., [facility] [place] [address] [facility] [address] [place] [phone] [phone] Social History Tobacco Use Types Packs/Day Years [...]
--- OUTSIDE RECORDS SUMMARY | 2021-12-23 13:05 | XMS_ITS | Encounter Summary ---
:[address] [facility] Address [address] [place] [address] Care Team Providers Name Role Phone Unavailable Primary Care Provider Unavailable Reason for Referral Outpatient (Routine) - Closed Specialty Diagnoses / Procedures Referred By Contact Refer red To Contact Diagnoses Swelling Testicle Garrison Casas M.D. 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 The patient will continue with treatment as planned. Signed by: Garrison Casas M.D. 05/08/2020 2:[address] [facility] [address] [place] [address] documented in this encounter Plan of Treatment [...]
--- OUTSIDE RECORDS SUMMARY | 2021-12-23 13:05 | XMS_ITS | Encounter Summary ---
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 [facility] Procedures Prior Auth Rad Tx [place] IMRT COMPLEX [address] [place] [address] Referral ID Status Reason Start Date Expiration Date Visits Requ ested Visits Authorized [id number] Closed 04/16/2020 04/16/2021 15 15 Encounter Details Date Type Department Care Team Description 05/08/2020 Hospital Encounter Department of Radiation Shaneka Natarajan I., [facility] [place] [address] [facility] [address] [place] [phone] [phone] Social History Tobacco Use Types Packs/Day Years [...]
--- OUTSIDE RECORDS SUMMARY | 2021-12-23 13:05 | XMS_ITS | Encounter Summary ---
:1940 Author Organization [facility] Address [address] [place] [address] Care Team Providers Name Role Phone Unavailable Primary Care Provider Unavailable Encounter Details Date Type Department Care Team Description 11/01/2020 Orders Only [facility] TH Sa greyson Moore M.D. [address] [place], [place] [phone] (Wo rk) Social History Tobacco Use Types Packs/Day Years Used Date Smoking Tobacco: Every Day Sex Assigned at Date Recorded Not on file documented as of this encounter Plan of Treatment Not on filedocumented as of this encounter Visit Diagnoses Not on filedocumented in this encounter
--- OUTSIDE RECORDS SUMMARY | 2021-12-23 13:05 | XMS_ITS | Encounter Summary ---
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 [facility] Procedures Prior Auth Rad Tx [place] IMRT COMPLEX [address] [place] [address] Referral ID Status Reason Start Date Expiration Date Visits Requ ested Visits Authorized [id number] Closed 04/16/2020 04/16/2021 15 15 Encounter Details Date Type Department Care Team Description 05/09/2020 Hospital Encounter Department of Radiation Shaneka Natarajan I[facility] [place] [address] [facility] [address] [place] [phone] [phone] Social History Tobacco Use Types Packs/Day Years [...]
--- OUTSIDE RECORDS SUMMARY | 2021-12-23 13:05 | XMS_ITS | Encounter Summary ---
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 [facility] Procedures Prior Auth Rad Tx [place] IMRT COMPLEX [address] [place] [address] Referral ID Status Reason Start Date Expiration Date Visits Requ ested Visits Authorized [id number] Closed 04/16/2020 04/16/2021 15 15 Encounter Details Date Type Department Care Team Description 05/01/2020 Hospital Encounter Department of Radiation Shaneka Natarajan I., [facility] [place] [address] [facility] [address] [place] [phone] [phone] Social History Tobacco Use Types Packs/Day Years [...]
--- OUTSIDE RECORDS SUMMARY | 2021-12-23 13:05 | XMS_ITS | Encounter Summary ---
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 [facility] Procedures Management Visit [address] [place], [place] [address] Referral ID Status Reason Start Date Expiration Date Visits V isits Requested Authorized [id number] Canceled 04/10/2020 04/10/2021 5 5 Encounter Details Date Type Department Care Team Description 05/01/2020 Hospital Encounter Department of Bethany Natarajan 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; in [place], [facility] Malignant Neoplasm Of Lower Limb Basal C ell Carcinoma Right [place], [place] [address] [facility] [address] [place], [place] [phone] (Work) [phone] Social History Tobacco Use Types Packs/Day Years Used Date Smoking Tobacco: Every Day Sex Assigned at Date Recorded Not on file documented as of this encounter Last Filed Vital Signs Vital Sign Reading Time Taken Comments Blood Pressure 148/82 05/01/2020 1:55 PM CANDY PULLER Pulse 86 05/01/2020 1:55 PM CANDY PULLER Temperature 36.3 ??C (97.3 ??F) 05/01/2020 1:55 PM CANDY PULLER Respiratory Rate - - Oxygen Saturation - [...] Quynh Moreno P.A.-C. M.[facility]hon 05/01/2020 2:25 PM CANDY PULLER Y PULLER Associated attestation - Bethany Natarajan M.D. - 05/01/2020 4:43 PM CANDY PULLER I saw and evaluated the patient and [...]
--- OUTSIDE RECORDS SUMMARY | 2021-12-23 13:05 | XMS_ITS | Encounter Summary ---
:1940 Author Organization [facility] Address [address] [place] [address] Care Team Providers Name Role Phone Unavailable Primary Care Provider Unavailable Reason for Referral Outpatient (Routine) - Closed Specialty Diagnoses / Procedures Referred By Contact Refer red To Contact Radiation Oncology Bethany Natarajan [facility] Sun [address] [place] [address] Referral ID Status Reason Start Date Expiration Date Visits Requ ested Visits Authorized [id number] Closed 05/15/2020 05/15/2021 1 1 Scheduling Instructions Deedee first to assess skin Radiation Therapy (Routine) - Canceled Specialty Diagnoses / Procedures Referred By Contact Refer red To Contact Diagnoses 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 Malignant Neoplasm Of Lower Limb Basal C ell Carcinoma Right [place], [place] [address] [facility] [address] [place], [place] [phone] (Work) [phone] Social History Tobacco Use Types Packs/Day Years [...] 2020 to complete skin assessment. Radiation Oncology [place] can be contacted at anytime for any questions or concerns. Patient stated a full understanding to the plan of care discussed today. Toxicities reviewed with Dr. Natarajan today. Signed by: Dedeee Fry R.N. 05/15/2020 2:59 PM CDT [facility] Radiation Therapy Center [address] [place] [address] documented in this encounter Plan of Treatment [...]
--- OUTSIDE RECORDS SUMMARY | 2021-12-23 13:05 | XMS_ITS | Encounter Summary ---
:1940 Author Organization [facility] Address [address] [place] [address] Care Team Providers Name Role Phone Unavailable Primary Care Provider Unavailable Reason for Visit Reason Comments Follow-up Encounter Details Date Type Department Care Team Description 10/30/2020 Clinical Communication Department of Bethany Natarajnazuhair Radiation Oncology in Corinne Adhikari [facility] [address] [facility] [address] [place] [phone] Social History Tobacco Use Types Packs/Day Years [...] center to help with this. Phone number: [phone] Is it okay to leave a voicemail on answering machine with test results? No Pharmacy (if medication related): N/A Elif Parkinson documented in this encounter Plan of Treatment Not on filedocumented as of this encounter Visit Diagnoses Not on filedocumented in this encounter
--- OUTSIDE RECORDS SUMMARY | 2021-12-23 13:05 | XMS_ITS | Encounter Summary ---
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 [facility] Procedures Prior Auth Rad Tx [place] IMRT COMPLEX [address] [place] [address] Referral ID Status Reason Start Date Expiration Date Visits Requ ested Visits Authorized [id number] Closed 04/16/2020 04/16/2021 15 15 Encounter Details Date Type Department Care Team Description 04/24/2020 Hospital Encounter Department of Radiation Shaneka Natarajan I., [facility] [place] [address] [facility] [address] [place] [phone] [phone] Social History Tobacco Use Types Packs/Day Years [...]
--- OUTSIDE RECORDS SUMMARY | 2021-12-23 13:05 | XMS_ITS | Encounter Summary ---
:1940 Author Organization [facility] Address [address] [place] [address] Care Team Providers Name Role Phone Unavailable Primary Care Provider Unavailable Encounter Details Date Type Department Care Team Description 05/15/2020 Hospital Encounter Department of Radiation Shaneka Natarajan I., Oncology in [facility] [address] [place] [address] [place] [address] [phone] Social History Tobacco Use Types Packs/Day Years [...]
--- OUTSIDE RECORDS SUMMARY | 2021-12-23 13:05 | XMS_ITS | Encounter Summary ---
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 I encouraged him to [...] Garrison Casas M.D. 05/07/2020 4:51 PM CDT [facility] Radiation Therapy Center [address] [place] [address] documented in this encounter Plan of Treatment [...]
--- OUTSIDE RECORDS SUMMARY | 2021-12-23 13:05 | XMS_ITS | Encounter Summary ---
:1940 Author Organization [facility] Address [address] [place] [address] Care Team Providers Name Role Phone Unavailable Primary Care Provider Unavailable Reason for Referral Outpatient (Routine) - Closed Specialty Diagnoses / Procedures Referred By Contact Refer red To Contact Radiation Oncology Bethany Natarajan [facility] M[facility]. [address] [place] [address] Referral ID Status Reason Start Date Expiration Date Visits Requ ested Visits Authorized [id number] Closed 05/28/2020 05/28/2021 1 1 Scheduling Instructions 2-3 weeks with CECY and Deedee Reason for Visit Outpatient (Routine) - Closed Specialty Diagnoses / Procedures Referred By Contact Refer red To Contact Radiation Oncology Bethany Natarajan [facility] Feli Gomez M.D. [address] [place] [phone] Referral ID Status Reason Start Date Expiration Date Visits Requ ested Visits Authorized [id number] Closed 05/28/2020 05/28/2021 1 1 Encounter Details Date Type Department Care Team Description 06/11/2020 Hospital Encounter Department of Bethany Natarajan (Primary Dx) Radiation Oncology Corinne Adhikari in [place], [address] [place] [address] [facility] [address] [place], [place] [phone] (Work) [phone] Social History Tobacco Use Types Packs/Day Years [...] a 8 out of 10.He takes 1 Cross Timbers in the morning and 1 at bedtime. [...] will send through prescription refill on his Cross Timbers to his preferred pharmacy today. Patient is to not exceed 3200 mg of Ibuprofen a day. We encouraged patient to trial warm compresses for acute right eye mattering. We will send through referral to [facility]. We will see Mr. Tl Lugo in a follow-up visit in late July. The patient was told to contact us sooner with questions or concerns. He verbally expressed his understanding of the plan. Signed by: Deedee Fry R.N. 06/11/2020 1:09 PM CDT [facility] Radiation Therapy Center [address] [place] [address] documented in this encounter Plan of Treatment Scheduled Referrals Name Type Priority Associated Order Schedule Diagnoses Radiation Oncology Outpatient Referral Routine On ce for 1 office visit Occurrences sta rting (clinic) 06/11/2020 unti l 06/11/2020 documented as of this encounter Visit Diagnoses Diagnosis Red Eye - Primary documented in this encounter
--- OUTSIDE RECORDS SUMMARY | 2021-12-23 13:05 | XMS_ITS | Encounter Summary ---
:1940 Author Organization [facility] Address [address] [place] [address] Care Team Providers Name Role Phone Unavailable Primary Care Provider Unavailable Encounter Details Date Type Department Care Team Description 09/27/2020 Clinical Communication Department of Bethany Natarajan Radiation Oncology in [place]inne Adhikari [facility] [address] [facility] [address] [place] [phone] Social History Tobacco Use Types Packs/Day Years [...]
--- OUTSIDE RECORDS SUMMARY | 2021-12-23 13:05 | XMS_ITS ---
:1940 Author Organization [facility] Address [address] [place] [address] Care Team Providers Name Role Phone Unavailable [...] Elapsed Days Session Dose Total Dos e [id number] 05/15/2020 21 300 cGy 4,500 cGy [id number] 05/06/2020 12 425 cGy 3,825 cGy [id number] 04/26/2020 2 700 cGy 2,100 cGy
--- OUTSIDE RECORDS SUMMARY | 2021-12-23 13:05 | XMS_ITS | Encounter Summary ---
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 [facility] Procedures Prior Auth Rad Tx DC IMRT COMPLEX [address] [place] [address] Referral ID Status Reason Start Date Expiration Date Visits Requ ested Visits Authorized [id number] Closed 04/16/2020 04/16/2021 15 15 Encounter Details Date Type Department Care Team Description 05/02/2020 Hospital Encounter Department of Radiation Shaneka Natarajan I., [facility] [place] [address] [facility] [address] [place] [phone] [phone] Social History Tobacco Use Types Packs/Day Years [...]
--- OUTSIDE RECORDS SUMMARY | 2021-12-23 13:06 | XMS_ITS | Encounter Summary ---
:1940 Author Organization [facility] Address [address] [place] [address] Care Team Providers Name Role Phone Unavailable [...] 12:35 Result s for this EXAM PM VP TREASURER procedure are i n the results section. documented in this encounter Results DERMATOLOGY IMAGE EXAM (02/12/2017 12:35 PM VP TREASURER) Specimen (Source) Anatomical Collection Method Collection Time Re ceived Time Location / / Volume Laterality 02/12/2017 12:00 PM VP TREASURER Narrative [facility] - 02/12/2017 2:50 PM VP TREASURER This order has been created and auto-finalized [...]
--- OUTSIDE RECORDS SUMMARY | 2021-12-23 13:06 | XMS_ITS | Encounter Summary ---
:1940 Author Organization [facility] Address [address] [place] [address] Care Team Providers Name Role Phone Unavailable [...] Onc Treatment Planning CT Simulation [address] [place], [place] [phone] Referral ID Status Reason Start Date Expiration Date Visits Requ ested Visits Authorized [id number] Closed 04/10/2020 04/10/2021 1 1 SECURITY ALARM INSTALLER Reason for Visit Radiation Therapy (Routine) - [...] Onc Treatment Planning CT Simulation [address] [place], [place] [address] Referral ID Status Reason Start Date Expiration Date Visits Requ ested Visits Authorized [id number] Closed 04/10/2020 04/10/2021 1 1 Encounter Details Date Type Department Care Team Description 04/16/2020 Hospital Encounter Department of Bethany Natarajan 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; in [place], [facility] Malignant Neoplasm Of Lower Limb Basal C ell Carcinoma Right [place], [place] [address] [facility] [address] [place], [place] [phone] (Work) [phone] Social History Tobacco Use Types Packs/Day Years [...] documented as of this encounter Procedure Notes Corla Alonos RTT - 04/16/2020 2:00 PM CSTAssociated Order(s): [...] planning. CT images were transferred to the [employer] treatment planning system, after a reference isocenter was determined and marked. Segmentation and treatment planning will take place priorto treatment delivery. Patient set up and imaging was appropriate and completed without incident. Rolled Seat Trimmer use:No SECURITY ALARM INSTALLER documented in this encounter Plan of Treatment Not on filedocumented as of this encounter Procedures Procedure Name Priority Date/Time Associated Comments Diagnosis INITIAL RAD ONC Routine 04/16/2020 2:00 PM Malignant Neoplasm Results for this TREATMENT PLANNING HOME SECURITY ALARM INSTALLER Of Lower Limb Basal pr ocedure are in CT SIMULATION Cell Carcinoma L eft the results Malignant Neoplasm section. Of Lower Limb Squamous Cell Carcinoma Left Malignant Neoplasm Of Lower Limb Basal Cell Carcinoma Right documented in this encounter Results Initial Rad Onc Treatment Planning CT Simulation (04/16/2020 2:00 PM HOME SECURITY ALARM INSTALLER) Specimen (Source) Anatomical Location Collection Method / Collectio n Time Received Time / Laterality Volume Narrative [facility] - 04/16/2020 2:00 PM HOME SECURITY ALARM INSTALLER Coral Alonso RTT ? 04/16/2020 ??4:02 PM Initial Rad Onc Treatment Planning CT Si mulation Date/Time: 04/16/2020 3:57 PM Performed by: Betahny Natarajan M.D. Authorized by: Bethany Natarajan M.D. Bethany Natarajan M.D. RADIATION ONCOLOGY ORDERABLE S Performing Organization Address City/State/ZIP Code Phon e Number [facility] na documented in this encounter Visit Diagnoses Diagnosis 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
--- OUTSIDE RECORDS SUMMARY | 2021-12-23 13:06 | XMS_ITS | Encounter Summary ---
:1940 Author Organization [facility] Address [address] [place] [address] Care Team Providers Name Role Phone Unavailable [...] 12:00 Result s for this EXAM PM SENIOR PORTFOLIO MANAGER procedure are i n the results section. documented in this encounter Results DERMATOLOGY IMAGE EXAM (02/12/2017 12:00 PM SENIOR PORTFOLIO MANAGER) Specimen (Source) Anatomical Collection Method Collection Time Re ceived Time Location / / Volume Laterality 02/12/2017 12:00 PM SENIOR PORTFOLIO MANAGER Narrative [facility] - 02/12/2017 2:49 PM SENIOR PORTFOLIO MANAGER This order has been created and [...]
--- OUTSIDE RECORDS SUMMARY | 2021-12-23 13:06 | XMS_ITS | Encounter Summary ---
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 [facility] Procedures Prior Auth Rad Tx MA IMRT COMPLEX [address] [place], [place] [phone] Referral ID Status Reason Start Date Expiration Date Visits Requ ested Visits Authorized [id number] Closed 04/16/2020 04/16/2021 15 15 CHUTIST/COMBATANT DIVER QUALIFIED Encounter Details Date Type Department Care Team Description 04/16/2020 Orders Only Department of Bethany Natarajan N eoplasm Of Radiation Oncology in [place]inne Adhikari Lower Limb Squamous [place] [address] [facility] Cell Carcinoma Left [address] [place], [place] (Primary Dx) [place] [phone] Social History Tobacco Use Types Packs/Day Years [...]
--- OUTSIDE RECORDS SUMMARY | 2021-12-23 13:06 | XMS_ITS | Encounter Summary ---
:1940 Author Organization [facility] Address [address] [place] [address] Care Team Providers Name Role Phone Unavailable [...] 04/16/2020 1:28 PM Re sults for this PROCESS IMPROVEMENT SPECIALIST procedure are i n the results section. documented in this encounter Results Leg-Oncology Image Exam (04/16/2020 1:28 PM PROCESS IMPROVEMENT SPECIALIST) Specimen (Source) Anatomical Collection Method Collection Time Re ceived Time Location / / Volume Laterality 04/16/2020 1:25 PM PROCESS IMPROVEMENT SPECIALIST Narrative [facility] - 04/16/2020 1:28 PM PROCESS IMPROVEMENT SPECIALIST This order has been created and [...]
--- OUTSIDE RECORDS SUMMARY | 2021-12-23 13:06 | XMS_ITS | Encounter Summary ---
:1940 Author Organization [facility] Address [address] [place] [address] Care Team Providers Name Role Phone Unavailable [...] 12:15 Result s for this EXAM PM INSPECTOR WATCH ASSEMBLY procedure are i n the results section. documented in this encounter Results DERMATOLOGY IMAGE EXAM (02/12/2017 12:15 PM INSPECTOR WATCH ASSEMBLY) Specimen (Source) Anatomical Collection Method Collection Time Re ceived Time Location / / Volume Laterality 02/12/2017 12:00 PM INSPECTOR WATCH ASSEMBLY Narrative [facility]IM[facility] - 02/12/2017 2:49 PM INSPECTOR WATCH ASSEMBLY This order has been created and auto-finalized [...]
--- OUTSIDE RECORDS SUMMARY | 2021-12-23 13:06 | XMS_ITS | Encounter Summary ---
:1940 Author Organization [facility] Address [address] [place] [address] Care Team Providers Name Role Phone Unavailable [...] 12:05 Result s for this EXAM PM SUPERVISOR FINISHING ROOM procedure are i n the results section. documented in this encounter Results DERMATOLOGY IMAGE EXAM (02/12/2017 12:05 PM SUPERVISOR FINISHING ROOM) Specimen (Source) Anatomical Collection Method Collection Time Re ceived Time Location / / Volume Laterality 02/12/2017 12:00 PM SUPERVISOR FINISHING ROOM Narrative [facility] - 02/12/2017 2:49 PM SUPERVISOR FINISHING ROOM This order has been created and auto-finalized [...]
--- OUTSIDE RECORDS SUMMARY | 2021-12-23 13:06 | XMS_ITS | Encounter Summary ---
:1940 Author Organization [facility] Address [address] [place] [address] Care Team Providers Name Role Phone Unavailable [...] 04/16/2020 1:25 PM Re sults for this FARM EQUIPMENT ENGINEER procedure are i n the results section. documented in this encounter Results Pelvis-Oncology Image Exam (04/16/2020 1:25 PM FARM EQUIPMENT ENGINEER) Specimen (Source) Anatomical Collection Method Collection Time Re ceived Time Location / / Volume Laterality 04/16/2020 1:25 PM FARM EQUIPMENT ENGINEER Narrative [facility] - 04/16/2020 1:28 PM FARM EQUIPMENT ENGINEER This order has been created and auto-finalized [...]
--- OUTSIDE RECORDS SUMMARY | 2021-12-23 13:06 | XMS_ITS | Encounter Summary ---
:1940 Author Organization [facility] Address [address] [place] [address] Care Team Providers Name Role Phone Unavailable [...] 12:30 Result s for this EXAM PM SYSTEMS INTEGRATION ENGINEER procedure are i n the results section. documented in this encounter Results DERMATOLOGY IMAGE EXAM (02/12/2017 12:30 PM SYSTEMS INTEGRATION ENGINEER) Specimen (Source) Anatomical Collection Method Collection Time Re ceived Time Location / / Volume Laterality 02/12/2017 12:00 PM SYSTEMS INTEGRATION ENGINEER Narrative IIM[facility] - 02/12/2017 2:50 PM SYSTEMS INTEGRATION ENGINEER This order has been created and [...]
--- OUTSIDE RECORDS SUMMARY | 2021-12-23 13:06 | XMS_ITS | Encounter Summary ---
:1940 Author Organization [facility] Address [address] [place] [address] Care Team Providers Name Role Phone Unavailable Primary Care Provider Unavailable Encounter Details Date Type Department Care Team Description 02/12/2017 Hospital Encounter HX RST DERM SURG OP Avni Gaffney [facility] M.D. [address] [place] [address] (Wo rk) Social History Tobacco Use Types Packs/Day Years Used Date Smoking Tobacco: Never Assessed Sex Assigned at Date Recorded Not on file documented as of this encounter Last Filed Vital Signs Vital Sign Reading Time Taken Comments Blood Pressure 141/85 02/12/2017 8:05 AM CONTROL TECHNICIAN Vital sign result from Clinical Notes. Pulse 89 02/12/2017 8:05 AM CONTROL TECHNICIAN Vital sign result from Clinical Notes. Temperature [...]
--- OUTSIDE RECORDS SUMMARY | 2021-12-23 13:06 | XMS_ITS | Encounter Summary ---
:1940 Author Organization [facility] Address [address] [place] [address] Care Team Providers Name Role Phone Unavailable [...] 12:20 Result s for this EXAM PM HOME HEALTH CLINICAL LIAISON procedure are i n the results section. documented in this encounter Results DERMATOLOGY IMAGE EXAM (02/12/2017 12:20 PM HOME HEALTH CLINICAL LIAISON) Specimen (Source) Anatomical Collection Method Collection Time Re ceived Time Location / / Volume Laterality 02/12/2017 12:00 PM HOME HEALTH CLINICAL LIAISON Narrative IIMS - 02/12/2017 2:49 PM HOME HEALTH CLINICAL LIAISON This order has been created and auto-finalized [...]
--- OUTSIDE RECORDS SUMMARY | 2021-12-23 13:06 | XMS_ITS | Encounter Summary ---
:1940 Author Organization [facility] Address [address] [place] [address] Care Team Providers Name Role Phone Unavailable Primary Care Provider Unavailable Reason for Visit Reason Comments Lab Monitoring Encounter Details Date Type Department Care Team Description 04/19/2020 Documentation Department of Radiation Deedee Fry, Lab Monitoring Oncology in [facility] [address] [facility] [address] [place] [phone] [phone] (Wo rk) Social History Tobacco Use Types Packs/Day Years Used Date Smoking Tobacco: Every Day Sex Assigned at Date Recorded Not on file documented as of this encounter Progress Notes Deedee Fry RJhonN. - 04/19/2020 10:39 AM CST Lab result entered in TER HELPER SPRAY documented in this encounter Plan of Treatment Not on filedocumented as of this encounter Procedures Procedure Name Priority Date/Time Associated Diagnosis Comme nts LABEXT SARS Routine 04/17/2020 12:00 AM Results for this CORONAVIRUS-2 PAINTER HELPER SPRAY procedure are in (COVID-19) RNA the results section. documented in this encounter Results EXT SARS Coronavirus-2 (COVID-19) RNA (04/17/2020 12:00 AM PAINTER HELPER SPRAY) [facility] Method Time Signature EXT Undetected Inconclus [facility] SARS-CoV-2 sylvia, LABORATORIES - RNA Indetermi [facility] elías, CAMPUS Invalid, Negative, Not Detected, Undetecte d, Other (specify in comment) Specimen (Source) Anatomical Location Collection Method / Collectio n Time Received Time / Laterality Volume Swab 04/17/2020 Bethany Natarajan M.D. LAB MICROBIOLOGY - GENERAL O RDERABLES Performing Organization Address City/State/ZIP Code Phon e Number [facility] LABORATORIES - [address] [place] [phone] [facility] documented in this encounter Visit Diagnoses Not on filedocumented in this encounter
--- OUTSIDE RECORDS SUMMARY | 2021-12-23 13:06 | XMS_ITS | Encounter Summary ---
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 [address] [place], [place] [phone] (Work) [phone] Social History Tobacco Use Types Packs/Day Years Used Date Smoking Tobacco: Every Day Sex Assigned at Date Recorded Not on file documented as of this encounter Last Filed Vital Signs Vital Sign Reading Time Taken Comments Blood Pressure 124/76 04/16/2020 12:50 PM HORSE SHOER Pulse 93 04/16/2020 12:50 PM HORSE SHOER Temperature 37.2 ??C (99 ??F) 04/16/2020 12:50 PM HORSE SHOER Respiratory Rate - - Oxygen Saturation - - Inhaled Oxygen Concentration - - Weight 95.5 kg (210 lb 8.6 oz) 04/16/2020 12:50 PM HORSE SHOER Height - - Body Mass Index - [...] surgery, nose SOCIAL HISTORY He lives in [place], [place]. He lives at [place] in an apartment. He is single. 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 He is mobile with [...] Photos were taken and are available in [employer] after obtaining consent. He has a 1.5 [...] We discussed the acute as well as roasterman risks, including, but not limited to fatigue, [...] by: Bethany Natarajan M.D. 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
--- OUTSIDE RECORDS SUMMARY | 2021-12-23 13:06 | XMS_ITS | Encounter Summary ---
:1940 Author Organization [facility] Address [address] [place] [address] Care Team Providers Name Role Phone Unavailable [...] 04/16/2020 1:28 PM Re sults for this IRONING PLEATER procedure are i n the results section. documented in this encounter Results Leg-Oncology Image Exam (04/16/2020 1:28 PM IRONING PLEATER) Specimen (Source) Anatomical Collection Method Collection Time Re ceived Time Location / / Volume Laterality 04/16/2020 1:25 PM IRONING PLEATER Narrative [facility]IM[facility] - 04/16/2020 1:28 PM IRONING PLEATER This order has been created and auto-finalized [...]
--- OUTSIDE RECORDS SUMMARY | 2021-12-23 13:06 | XMS_ITS | Encounter Summary ---
:1940 Author Organization [facility] Address [address] [place] [address] Care Team Providers Name Role Phone Unavailable [...] 12:10 Result s for this EXAM PM ADMINISTRATIVE ASSISTANT OFFICE MANAGER procedure are i n the results section. documented in this encounter Results DERMATOLOGY IMAGE EXAM (02/12/2017 12:10 PM ADMINISTRATIVE ASSISTANT OFFICE MANAGER) Specimen (Source) Anatomical Collection Method Collection Time Re ceived Time Location / / Volume Laterality 02/12/2017 12:00 PM ADMINISTRATIVE ASSISTANT OFFICE MANAGER Narrative IIM[facility] - 02/12/2017 2:49 PM ADMINISTRATIVE ASSISTANT OFFICE MANAGER This order has been created and [...]
--- OUTSIDE RECORDS SUMMARY | 2021-12-23 13:06 | XMS_ITS | Encounter Summary ---
:1940 Author Organization [facility] Address [address] [place] [address] Care Team Providers Name Role Phone Unavailable [...] Result s for this EXAM PM SENIOR OFFICER procedure are i n the results section. documented in this encounter Results DERMATOLOGY IMAGE EXAM (01/19/2017 12:00 PM SENIOR OFFICER) Specimen (Source) Anatomical Location Collection Method / Collectio n Time Received Time / Laterality Volume Narrative IIMS - 01/19/2017 4:19 PM SENIOR OFFICER This order has been created and auto-finalized [...]
--- OUTSIDE RECORDS SUMMARY | 2021-12-23 13:06 | XMS_ITS | Encounter Summary ---
:1940 Author Organization [facility] Address [address] [place] [address] Care Team Providers Name Role Phone Unavailable Primary Care Provider Unavailable Reason for Referral Specialty Diagnoses / Procedures Referred By Contact Refer red To Contact Bethany Natarajan M.D. 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 04/16/2020 ??4:02 PM Initial Rad Onc Treatment Planning CT Si mulation Date/Time: 04/16/2020 3:57 PM Performed by: Bethany Natarajan M.D. Authorized by: Bethany Natarajan M.D. Bethany Natarajan M.D. RADIATION ONCOLOGY ORDERABLE S Performing Organization Address City/State/ZIP Code Phon e Number [facility] [facility] [place] documented in this encounter Visit Diagnoses [...]
--- OUTSIDE RECORDS SUMMARY | 2021-12-23 13:06 | XMS_ITS | Encounter Summary ---
:1940 Author Organization [facility] Address [address] [place] [address] Care Team Providers Name Role Phone Unavailable [...] 12:25 Result s for this EXAM PM LOTUS NOTES ADMINISTRATOR procedure are i n the results section. documented in this encounter Results DERMATOLOGY IMAGE EXAM (02/12/2017 12:25 PM LOTUS NOTES ADMINISTRATOR) Specimen (Source) Anatomical Collection Method Collection Time Re ceived Time Location / / Volume Laterality 02/12/2017 12:00 PM LOTUS NOTES ADMINISTRATOR Narrative IIM[facility] - 02/12/2017 2:50 PM LOTUS NOTES ADMINISTRATOR This order has been created and [...]
== END 2021-12-23 12:55 | disposition home or self-care (01) ==
LOC: WOUND 12:54
PROVIDERS: PCP Family Medicine; Visit Provider Nurse Practitioner Family
DX: L59.8 Other specified disorders of the skin and subcutaneous tissue related to radiation (principal)
CPT/HCPCS: 11042

== ENCOUNTER 2021-12-30 12:51 | Outpatient (CLI) | payer OTHER, SELFPAY ==
--- OUTSIDE RECORDS SUMMARY | 2021-12-30 12:53 | XMS_ITS | Encounter Summary ---
:1940 Author Organization [facility] Address [address] [place] [address] Care Team Providers Name Role Phone Unavailable Primary Care Provider Unavailable Encounter Details Date Type Department Care Team Description 11/01/2020 Orders Only [facility] P[facility] Sa greyson Moore M.D. [address] [place], [place] [phone] (Wo rk) Social History Tobacco Use Types Packs/Day Years Used Date Smoking Tobacco: Every Day Sex Assigned at Date Recorded Not on file documented as of this encounter Plan of Treatment Not on filedocumented as of this encounter Visit Diagnoses Not on filedocumented in this encounter
--- OUTSIDE RECORDS SUMMARY | 2021-12-30 12:53 | XMS_ITS | Encounter Summary ---
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; in [place], [facility] Malignant Neoplasm Of Lower Limb Basal C ell Carcinoma Right [place], [place] [address] [facility] [address] [place], [place] [phone] (Work) [phone] Social History Tobacco Use Types Packs/Day Years Used Date Smoking Tobacco: Every Day Sex Assigned at Date Recorded Not on file documented as of this encounter Last Filed Vital Signs Vital Sign Reading Time Taken Comments Blood Pressure 148/82 05/01/2020 1:55 PM WASTE WATER TREATMENT PLANT OPERATOR Pulse 86 05/01/2020 1:55 PM WASTE WATER TREATMENT PLANT OPERATOR Temperature 36.3 ??C (97.3 ??F) 05/01/2020 1:55 PM WASTE WATER TREATMENT PLANT OPERATOR Respiratory Rate - - Oxygen Saturation - [...] Quynh Moreno P.A.-C. M.SJhon 05/01/2020 2:25 PM WASTE WATER TREATMENT PLANT OPERATOR E WATER TREATMENT PLANT OPERATOR Associated attestation - Bethany Natarajan M.D. - 05/01/2020 4:43 PM WASTE WATER TREATMENT PLANT OPERATOR I saw and evaluated the patient and [...]
--- OUTSIDE RECORDS SUMMARY | 2021-12-30 12:53 | XMS_ITS | Encounter Summary ---
:1940 Author Organization [facility] Address [address] [place] [address] Care Team Providers Name Role Phone Unavailable Primary Care Provider Unavailable Reason for Referral Specialty Diagnoses / Procedures Referred By Contact Refer red To Contact Bethany Natarajan M.D. [facility] [address] [place] [phone] Referral ID Status Reason Start Date Expiration Date Visits Requ ested Visits Authorized ER PRESS CLIPPING Encounter Details Date Type Department Care Team Description 04/30/2020 - Hospital Encounter Department of Aramis Natarajan M.D. [address] [place] [phone] Malignant Neoplasm Of Lower Limb Basal C ell Carcinoma Left; 05/17/2020 Radiation Oncology Deedee Fry R.N. 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
--- OUTSIDE RECORDS SUMMARY | 2021-12-30 12:53 | XMS_ITS | Encounter Summary ---
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 [facility] Procedures Prior Auth Rad Tx [place] IMRT COMPLEX [address] [place] [address] Referral ID Status Reason Start Date Expiration Date Visits Requ ested Visits Authorized [id number] Closed 04/16/2020 04/16/2021 15 15 Encounter Details Date Type Department Care Team Description 05/03/2020 Hospital Encounter Department of Radiation Shaneka Natarajan I., [facility] [place] [address] [facility] [address] [place] [phone] [phone] Social History Tobacco Use Types Packs/Day Years [...]
--- OUTSIDE RECORDS SUMMARY | 2021-12-30 12:53 | XMS_ITS | Encounter Summary ---
:1940 Author Organization [facility] Address [address] [place] [address] Care Team Providers Name Role Phone Unavailable Primary Care Provider Unavailable Reason for Visit Reason Comments Med Refill Encounter Details Date Type Department Care Team Description 07/09/2020 Clinical Communication Department of Bethany Natarajan ed [facility]ill [facility] [address] [facility] [address] [place] [phone] Social History Tobacco Use Types Packs/Day Years [...] would like a refill today. Phone number: [phone] Is it okay to leave a voicemail on answering machine with test results? Yes Pharmacy (if medication related): [facility] [address] [place] [address] [facility] [address] [facility] [address] Paula Hall documented in this encounter Plan of Treatment Not on filedocumented as of this encounter Visit Diagnoses Not on filedocumented in this encounter
--- OUTSIDE RECORDS SUMMARY | 2021-12-30 12:53 | XMS_ITS | Encounter Summary ---
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 [facility] Procedures Prior Auth Rad Tx [place] IMRT COMPLEX [address] [place] [address] Referral ID Status Reason Start Date Expiration Date Visits Requ ested Visits Authorized [id number] Closed 04/16/2020 04/16/2021 15 15 Encounter Details Date Type Department Care Team Description 05/07/2020 Hospital Encounter Department of Radiation Shaneka Natarajan I., [facility] [place] [address] [facility] [address] [place] [phone] [phone] Social History Tobacco Use Types Packs/Day Years [...]
--- OUTSIDE RECORDS SUMMARY | 2021-12-30 12:53 | XMS_ITS | Encounter Summary ---
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 [facility] Procedures Prior Auth Rad Tx [place] IMRT COMPLEX [address] [place] [address] Referral ID Status Reason Start Date Expiration Date Visits Requ ested Visits Authorized [id number] Closed 04/16/2020 04/16/2021 15 15 Encounter Details Date Type Department Care Team Description 05/06/2020 Hospital Encounter Department of Radiation Shaneka Natarajan I[facility] [place] [address] [facility] [address] [place] [phone] [phone] Social History Tobacco Use Types Packs/Day Years [...]
--- OUTSIDE RECORDS SUMMARY | 2021-12-30 12:53 | XMS_ITS | Encounter Summary ---
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 [facility] Procedures Prior Auth Rad Tx [place] IMRT COMPLEX [address] [place] [address] Referral ID Status Reason Start Date Expiration Date Visits Requ ested Visits Authorized [id number] Closed 04/16/2020 04/16/2021 15 15 Encounter Details Date Type Department Care Team Description 05/02/2020 Hospital Encounter Department of Radiation Shaneka Natarajan I., [facility] [place] [address] [facility] [address] [place] [phone] [phone] Social History Tobacco Use Types Packs/Day Years [...]
--- OUTSIDE RECORDS SUMMARY | 2021-12-30 12:53 | XMS_ITS | Encounter Summary ---
:1940 Author Organization [facility] Address [address] [place] [address] Care Team Providers Name Role Phone Unavailable Primary Care Provider Unavailable Encounter Details Date Type Department Care Team Description 07/10/2020 Clinical Communication Department of Bethany Natarajan Radiation Oncology in [place] [facility] [address] [facility] [address] [place] [phone] Social History Tobacco Use Types Packs/Day Years [...] the [place] has been sent to the [facility] in [place]. Phone number: [phone] Is it okay to leave a voicemail on answering machine with test results? Yes Pharmacy (if medication related): N/A Elif Parkinson documented in this encounter Plan of Treatment Not on filedocumented as of this encounter Visit Diagnoses Not on filedocumented in this encounter
--- OUTSIDE RECORDS SUMMARY | 2021-12-30 12:53 | XMS_ITS | Encounter Summary ---
:1940 Author Organization [facility] Address [address] [place] [address] Care Team Providers Name Role Phone Unavailable Primary Care Provider Unavailable Reason for Visit Reason Comments Follow-up Encounter Details Date Type Department Care Team Description 10/30/2020 Clinical Communication Department of Bethany Natarajanzuhair Radiation Oncology in [place] Adhik[facility] [address] [facility] [address] [place] [phone] Social History Tobacco Use Types Packs/Day Years [...] center to help with this. Phone number: [phone] Is it okay to leave a voicemail on answering machine with test results? No Pharmacy (if medication related): N/A Elif Parkinson documented in this encounter Plan of Treatment Not on filedocumented as of this encounter Visit Diagnoses Not on filedocumented in this encounter
--- OUTSIDE RECORDS SUMMARY | 2021-12-30 12:53 | XMS_ITS | Clinical Summary ---
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 BUILDER on following regimen: 0 04/16/2014 Active mg/mL inj LOADING DOSE: 0.2 mg for 1 dose HEATING ELEMENT BUILDER BOLUS DOSE: 0.2-0.3 mg LOCKOUT INTERVAL: 10 [...] elationship: Life Partner Secondary Health Care Agent: Morrisms p: Phone: Conservator: Relationship: Phone: Guardian: Relationship: [...] 3-15-10 05/06/2009 Cardiomyopathy , ischemic; old inf CO 05/02/2009 Overview: Per preop, EF of 39% [...] Comments Blood Pressure 123/73 04/16/2014 2:19 PM SPINNER FIXER Pulse 115 04/16/2014 2:19 PM SPINNER FIXER Temperature 38.3 ??C (100.9 ??F) 04/16/2014 3:30 PM SPINNER FIXER Respiratory Rate 20 04/16/2014 2:19 PM SPINNER FIXER Oxygen Saturation 94% 04/16/2014 2:19 PM SPINNER FIXER Inhaled Oxygen Concentration - - Weight 86.1 kg (189 lb 13.1 oz) 04/16/2014 5:00 AM SPINNER FIXER Height 180.3 cm (5' 10.98) 04/02/2014 12:00 AM SPINNER FIXER Body Mass Index 26.49 04/02/2014 12:00 AM SPINNER FIXER Plan of Treatment Health Maintenance Due Date [...] 65+ 10/23/2021 Medical Devices Implanted Type Area Pipe Bender Device Shelf Model / Identifier Expiration Serial / Date Lot Screw Self Drilling 3.5x15mm - [id number] N/A: Spine SOFAMOR DANEK [id number] / Implanted: Qty: 4 on 06/24/2010 at [facility] / Humeral Tray Left: [id number] / Implanted: Qty: 1 on 03/17/2012 at [facility] Shoulder / [id number] Description: HUMERAL TRAY Explanted Type Area Pipe Bender Device Shelf Model / Identifier Expiration Serial / Date Lot Patch Vasc 0.8x8cm Xenosure Biological Pericardial - [id number] Right: Lemaitre 0.8P8# / Explanted: Qty: 1 on 03/09/2014 at [facility] [employer] / [id number] Results Not on filefrom Last 3 Months Insurance Payer Benefit Plan / Subscriber ID Effective Dates Phone Addre ss Type Group [facility] CONNE[facility] [id number] 2015-Present [address] [place] [address] Guarantor Name Account Type Relation to Date of Phone Bill ing Patient Address Tl Lugo Personal/Family Self 1940 [phone] (Home) [place] [address] Advance Directives Documents on File Type Date Recorded Patient Hospice Team Lead Explanati on Healthcare Directive 05/12/2009 Healthcare Directive 06/26/2010 Latest Code Status on File Code Status Date Activated Date Inactivated Comments Full Code 04/16/2014 2:21 PM Full Code 03/07/2014 8:16 PM 04/16/2014 2:21 PM Full Code 03/07/2014 12:01 PM 03/07/2014 8:16 PM Full Code 02/28/2014 6:12 AM 02/28/2014 11:11 PM Full Code 03/17/2012 12:44 PM 03/19/2012 4:35 PM Care Teams Insecticide Supervisor Relationship Specialty Start Date End Date Alfredo Starr MD PCP - General 11/13/08
--- OUTSIDE RECORDS SUMMARY | 2021-12-30 12:53 | XMS_ITS | Encounter Summary ---
:1940 Author Organization [facility] Address [address] [place] [address] Care Team Providers Name Role Phone Unavailable Primary Care Provider Unavailable Encounter Details Date Type Department Care Team Description 05/15/2020 Hospital Encounter Department of Radiation Shaneka Natarajan I., Oncology in [facility] [address] [facility] [address] [place] [address] [phone] Social History Tobacco Use Types Packs/Day Years [...]
--- OUTSIDE RECORDS SUMMARY | 2021-12-30 12:53 | XMS_ITS | Encounter Summary ---
:1940 Author Organization [facility] Address [address] [place] [address] Care Team Providers Name Role Phone Unavailable Primary Care Provider Unavailable Reason for Referral Outpatient (Routine) - Closed Specialty Diagnoses / Procedures Referred By Contact Refer red To Contact Radiation Oncology Bethany Natarajan [facility] [place] [address] [place] [address] Referral ID Status Reason Start Date Expiration Date Visits Requ ested Visits Authorized [id number] Closed 05/15/2020 05/15/2021 1 1 Scheduling Instructions Deedee first to assess skin Radiation Therapy (Routine) - Canceled Specialty Diagnoses / Procedures Referred By Contact Refer red To Contact Diagnoses 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 [facility] Region Procedures Management Visit [address] [place] [address] Referral ID Status Reason Start Date Expiration Date Visits V isits Requested Authorized [id number] Canceled 04/10/2020 04/10/2021 5 5 Encounter Details Date Type Department Care Team Description 05/15/2020 Hospital Encounter Department of Bethany Natarajan Neoplasm Of Lower Limb Basal Cell Carcinoma Left; Radiation Oncology Corinne Adhikari 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; in [place], [address] [facility] Malignant Neoplasm Of Lower Limb Basal C ell Carcinoma Right [place], [place] [address] [facility] [address] [place], [place] [phone] (Work) [phone] Social History Tobacco Use Types Packs/Day Years [...] 2020 to complete skin assessment. Radiation Oncology [place] can be contacted at anytime for any questions or concerns. Patient stated a full understanding to the plan of care discussed today. Toxicities reviewed with Dr. Natarajan today. Signed by: Deedee Fry R.N. 05/15/2020 2:59 PM CDT [facility] [address] [place] [address] documented in this encounter Plan of Treatment [...]
--- OUTSIDE RECORDS SUMMARY | 2021-12-30 12:53 | XMS_ITS | Encounter Summary ---
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 [facility] Procedures Prior Auth Rad Tx [place] IMRT COMPLEX [address] [place] [address] Referral ID Status Reason Start Date Expiration Date Visits Requ ested Visits Authorized [id number] Closed 04/16/2020 04/16/2021 15 15 Encounter Details Date Type Department Care Team Description 05/09/2020 Hospital Encounter Department of Radiation Shaneka Natarajan I., [facility] [place] [address] [facility] [address] [place] [address] [phone] Social History Tobacco Use Types Packs/Day Years [...]
--- OUTSIDE RECORDS SUMMARY | 2021-12-30 12:53 | XMS_ITS | Encounter Summary ---
:1940 Author Organization [facility] Address [address] [place] [address] Care Team Providers Name Role Phone Unavailable Primary Care Provider Unavailable Reason for Visit Reason Comments Med Refill Encounter Details Date Type Department Care Team Description 08/08/2020 Clinical Communication Department of Travis Hall Refjoanne Radiation Oncology [facility] [address] [place] [phone] Social History Tobacco Use Types Packs/Day Years Used Date Smoking Tobacco: Every Day Sex Assigned at Date Recorded Not on file documented as of this encounter Miscellaneous Notes Telephone Encounter - Deedee Fry R.N. - 08/08/2020 1:06 PM CDT Information Discussed I called and left voicemail on patient's phone requesting call back. Patient reported that he was taking Portal twice a day at his last in office visit with us. PLAN Dr. Natarajan and I will send through refill on Portal to get him through until August 16, 2020, when he is scheduled for follow up with Dr. Natarajan in [place]. Disposition/Recommendation: I requested call back, refill will [...] can be done or not Phone number: [phone] Is it okay to leave a voicemail on answering machine with test results? Yes Pharmacy (if medication related): [facility] [address] [place] [address] Paula Hall documented in this encounter Plan of Treatment Not on filedocumented as of this encounter Visit Diagnoses Not on filedocumented in this encounter
--- OUTSIDE RECORDS SUMMARY | 2021-12-30 12:53 | XMS_ITS | Encounter Summary ---
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 [facility] Procedures Prior Auth Rad Tx [place] IMRT COMPLEX [address] [place] [address] Referral ID Status Reason Start Date Expiration Date Visits Requ ested Visits Authorized [id number] Closed 04/16/2020 04/16/2021 15 15 Encounter Details Date Type Department Care Team Description 05/08/2020 Hospital Encounter Department of Radiation Shaneka Natarajan I., [facility] [place] [address] [facility] [address] [place] [phone] [phone] Social History Tobacco Use Types Packs/Day Years [...]
--- OUTSIDE RECORDS SUMMARY | 2021-12-30 12:53 | XMS_ITS ---
:1940 Author Organization [facility] Address [address] [place] [address] Care Team Providers Name Role Phone Unavailable [...] Elapsed Days Session Dose Total Dos e [id number] 05/15/2020 21 300 cGy 4,500 cGy [id number] 05/06/2020 12 425 cGy 3,825 cGy [id number] 04/26/2020 2 700 cGy 2,100 cGy
--- OUTSIDE RECORDS SUMMARY | 2021-12-30 12:53 | XMS_ITS | Encounter Summary ---
:1940 Author Organization [facility] Address [address] [place] [address] Care Team Providers Name Role Phone Unavailable Primary Care Provider Unavailable Reason for Referral Outpatient (Routine) - Closed Specialty Diagnoses / Procedures Referred By Contact Refer red To Contact Diagnoses Swelling Testicle Garrison Casas M.D. 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 [facility] Region Procedures Management Visit [address] [place] [address] Referral ID Status Reason Start Date Expiration Date Visits V isits Requested Authorized [id number] Canceled 04/10/2020 04/10/2021 5 5 Encounter Details Date Type Department Care Team Description 05/08/2020 Hospital Encounter Department of Garrison Casas ing Testicle (Primary Dx); Radiation Oncology Corinne Cabello Malignant Neoplasm Of Lower Limb Basal C ell Carcinoma Left; in [place], [facility] [address] [facility] 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; [place], [place] Malignant Neoplasm Of Lower Limb Basal Cell Carcinoma Right [address] [facility] [address] [place], [place] [phone] [address] (Work) [phone] Social History Tobacco Use Types Packs/Day Years [...] I have ordered a scrotal ultrasound at [facility]. The patient will continue with treatment as planned. Signed by: Garriosn Casas M.D. 05/08/2020 2:54 PM CDT [facility] [address] [place] [address] documented in this encounter Plan of Treatment [...]
--- OUTSIDE RECORDS SUMMARY | 2021-12-30 12:53 | XMS_ITS | Encounter Summary ---
:1940 Author Organization [facility] Address [address] [place] [address] Care Team Providers Name Role Phone Unavailable Primary Care Provider Unavailable Encounter Details Date Type Department Care Team Description 09/27/2020 Clinical Communication Department of Bethany Natarajan Radiation Oncology in Corinne Adhikari [facility] [address] [facility] [address] [place] [phone] Social History Tobacco Use Types Packs/Day Years [...]
--- OUTSIDE RECORDS SUMMARY | 2021-12-30 12:53 | XMS_ITS | Encounter Summary ---
:1940 Author Organization [facility] Address [address] [place] [address] Care Team Providers Name Role Phone Unavailable Primary Care Provider Unavailable Reason for Referral Outpatient (Routine) - Closed Specialty Diagnoses / Procedures Referred By Contact Refer red To Contact Radiation Oncology Bethany Natarajan [facility] M.D. [address] [place] [address] Referral ID Status Reason Start Date Expiration Date Visits Requ ested Visits Authorized [id number] Closed 05/28/2020 05/28/2021 1 1 Scheduling Instructions 2-3 weeks with [facility] Deedee Outpatient (Routine) - Closed Specialty Diagnoses / Procedures Referred By Contact Refer red To Contact Radiation Oncology Bethany Natarajan [facility] M.D. [address] [place] [address] Referral ID Status Reason Start Date Expiration Date Visits Requ ested Visits Authorized [id number] Closed 05/15/2020 05/15/2021 1 1 Scheduling Instructions Deedee first to assess skin Reason for Visit Outpatient (Routine) - Closed Specialty Diagnoses / Procedures Referred By Contact Refer red To Contact Radiation Oncology Bethany Natarajan [facility] M.D. 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 05/28/2020 1:16 PM CDT [facility] [address] [place] [address] ATTESTATION FOR FOLLOW-UP VISIT I saw and [...]
--- OUTSIDE RECORDS SUMMARY | 2021-12-30 12:53 | XMS_ITS | Encounter Summary ---
:1940 Author Organization [facility] Address [address] [place] [address] Care Team Providers Name Role Phone Unavailable Primary Care Provider Unavailable Reason for Referral Outpatient (Routine) - Closed Specialty Diagnoses / Procedures Referred By Contact Refer red To Contact Radiation Oncology Bethany Natarajan [facility] M.D. [address] [place] [address] Referral ID Status Reason Start Date Expiration Date Visits Requ ested Visits Authorized [id number] Closed 05/28/2020 05/28/2021 1 1 Scheduling Instructions 2-3 weeks with [facility] Deedee Reason for Visit Outpatient (Routine) - Closed Specialty Diagnoses / Procedures Referred By Contact Refer red To Contact Radiation Oncology Bethany Natarajan [facility] F[facility] Gomez M.D. [address] [place] [phone] Referral ID Status Reason Start Date Expiration Date Visits Requ ested Visits Authorized [id number] Closed 05/28/2020 05/28/2021 1 1 Encounter Details Date Type Department Care Team Description 06/11/2020 Hospital Encounter Department of Bethany Natarajan (Primary Dx) Radiation Oncology Corinne Adhikari in [place], [address] [place] [address] [facility] [address] [place], [place] [phone] (Work) [phone] Social History Tobacco Use Types Packs/Day Years [...] a 8 out of 10.He takes 1 [place] in the morning and 1 at bedtime. [...] will send through prescription refill on his [place] to his preferred pharmacy today. Patient is to not exceed 3200 mg of Ibuprofen a day. We encouraged patient to trial warm compresses for acute right eye mattering. We will send through referral to [facility]. We will see Mr. Tl Lugo in a follow-up visit in late July. The patient was told to contact us sooner with questions or concerns. He verbally expressed his understanding of the plan. Signed by: Deedee Fry R.N. 06/11/2020 1:09 PM CDT [facility] [address] [place] [address] documented in this encounter Plan of Treatment Scheduled Referrals Name Type Priority Associated Order Schedule Diagnoses Radiation Oncology Outpatient Referral Routine On ce for 1 office visit Occurrences sta rting (clinic) 06/11/2020 unti l 06/11/2020 documented as of this encounter Visit Diagnoses Diagnosis Red Eye - Primary documented in this encounter
--- OUTSIDE RECORDS SUMMARY | 2021-12-30 12:53 | XMS_ITS | Encounter Summary ---
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 [facility] Procedures Prior Auth Rad Tx [place] IMRT COMPLEX [address] [place] [address] Referral ID Status Reason Start Date Expiration Date Visits Requ ested Visits Authorized [id number] Closed 04/16/2020 04/16/2021 15 15 Encounter Details Date Type Department Care Team Description 05/13/2020 Hospital Encounter Department of Radiation Shaneka Natarajan I., [facility] [place] [address] [facility] [address] [place] [phone] [phone] Social History Tobacco Use Types Packs/Day Years [...]
--- OUTSIDE RECORDS SUMMARY | 2021-12-30 12:53 | XMS_ITS | Clinical Summary ---
:1940 Author Organization [facility] Address [address] [place] [address] Care Team Providers Name Role Phone Unavailable Primary Care Provider Unavailable Source Comments Patient records contain information from all sites at [facility]. For routine questions regarding patient records, call [phone] during business hours, M-F 8:00 AM - 5:00 PM Central Time. Record requests for emergency care only can be directed to [phone] at any time.[facility] Allergies Active Allergy Reactions Severity Noted Date [...] Phone Addre ss Type Group [facility] [id number] 2021-Present [phone] [address] [place] [address]
--- OUTSIDE RECORDS SUMMARY | 2021-12-30 12:53 | XMS_ITS | Encounter Summary ---
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 [facility] Procedures Prior Auth Rad Tx [place] IMRT COMPLEX [address] [place] [address] Referral ID Status Reason Start Date Expiration Date Visits Requ ested Visits Authorized [id number] Closed 04/16/2020 04/16/2021 15 15 Encounter Details Date Type Department Care Team Description 05/14/2020 Hospital Encounter Department of Radiation Shaneka [facility]ajan I[facility] [place] [address] [facility] [address] [place] [address] [phone] Social History Tobacco Use Types Packs/Day Years [...]
--- OUTSIDE RECORDS SUMMARY | 2021-12-30 12:53 | XMS_ITS | Encounter Summary ---
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 [facility] Procedures Management Visit [address] [place], [place] [address] Referral ID Status Reason Start Date Expiration Date Visits V isits Requested Authorized [id number] Canceled 04/10/2020 04/10/2021 5 5 Encounter Details Date Type Department Care Team Description 05/06/2020 Hospital Encounter Department of Garrison Casas Neoplasm Of Lower Limb Basal Cell Carcinoma Left; Radiation Oncology Corinne Cabello 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; in [address] Malignant Neoplasm Of Lower Limb Basal C ell Carcinoma Right [place], [place] [address] [facility] [address] [place], [place] [phone] (Work) [phone] Social History Tobacco Use Types Packs/Day Years [...]
--- OUTSIDE RECORDS SUMMARY | 2021-12-30 12:53 | XMS_ITS | Encounter Summary ---
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 [facility] Procedures Management Visit [address] [place], [place] [address] Referral ID Status Reason Start Date Expiration Date Visits V isits Requested Authorized [id number] Canceled 04/10/2020 04/10/2021 5 5 Encounter Details Date Type Department Care Team Description 05/07/2020 Hospital Encounter Department of Garrison Casas Neoplasm Of Lower Limb Basal Cell Carcinoma Left; Radiation Oncology Corinne Cabello 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; in [place], [address] [place] [address] Malignant Neoplasm Of Lower Limb Basal C ell Carcinoma Right [place], [place] [address] [facility] [address] [place], [place] [phone] (Work) [phone] Social History Tobacco Use Types Packs/Day Years [...] I provided patient with Moist Skin Reaction [id number] pamphlet yesterday. I encouraged him to [...] Garrison Casas M.D. 05/07/2020 4:51 PM CDT [facility] [address] [place] [address] documented in this encounter Plan of Treatment [...]
--- OUTSIDE RECORDS SUMMARY | 2021-12-30 12:54 | XMS_ITS | Encounter Summary ---
:1940 Author Organization [facility] Address [address] [place] [address] Care Team Providers Name Role Phone Unavailable [...] 12:15 Result s for this EXAM PM SETTER OFF procedure are i n the results section. documented in this encounter Results DERMATOLOGY IMAGE EXAM (02/12/2017 12:15 PM SETTER OFF) Specimen (Source) Anatomical Collection Method Collection Time Re ceived Time Location / / Volume Laterality 02/12/2017 12:00 PM SETTER OFF Narrative [facility] - 02/12/2017 2:49 PM SETTER OFF This order has been created and auto-finalized [...]
--- OUTSIDE RECORDS SUMMARY | 2021-12-30 12:54 | XMS_ITS | Encounter Summary ---
:1940 Author Organization [facility] Address [address] [place] [address] Care Team Providers Name Role Phone Unavailable [...] 12:20 Result s for this EXAM PM PIT RECORDER procedure are i n the results section. documented in this encounter Results DERMATOLOGY IMAGE EXAM (02/12/2017 12:20 PM PIT RECORDER) Specimen (Source) Anatomical Collection Method Collection Time Re ceived Time Location / / Volume Laterality 02/12/2017 12:00 PM PIT RECORDER Narrative [facility] - 02/12/2017 2:49 PM PIT RECORDER This order has been created and auto-finalized [...]
--- OUTSIDE RECORDS SUMMARY | 2021-12-30 12:54 | XMS_ITS | Encounter Summary ---
:1940 Author Organization [facility] Address [address] [place] [address] Care Team Providers Name Role Phone Unavailable [...] 12:30 Result s for this EXAM PM BEAD SUPERVISOR procedure are i n the results section. documented in this encounter Results DERMATOLOGY IMAGE EXAM (02/12/2017 12:30 PM BEAD SUPERVISOR) Specimen (Source) Anatomical Collection Method Collection Time Re ceived Time Location / / Volume Laterality 02/12/2017 12:00 PM BEAD SUPERVISOR Narrative [facility] - 02/12/2017 2:50 PM BEAD SUPERVISOR This order has been created and [...]
--- OUTSIDE RECORDS SUMMARY | 2021-12-30 12:54 | XMS_ITS | Encounter Summary ---
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 [place], [place] [address] [facility] [address] [place], [place] [phone] (Work) [phone] Social History Tobacco Use Types Packs/Day Years Used Date Smoking Tobacco: Every Day Sex Assigned at Date Recorded Not on file documented as of this encounter Last Filed Vital Signs Vital Sign Reading Time Taken Comments Blood Pressure 124/76 04/16/2020 12:50 PM STOCK UNLOADER Pulse 93 04/16/2020 12:50 PM STOCK UNLOADER Temperature 37.2 ??C (99 ??F) 04/16/2020 12:50 PM STOCK UNLOADER Respiratory Rate - - Oxygen Saturation - - Inhaled Oxygen Concentration - - Weight 95.5 kg (210 lb 8.6 oz) 04/16/2020 12:50 PM STOCK UNLOADER Height - - Body Mass Index - [...] surgery, nose SOCIAL HISTORY He lives in [place], [place]. He lives at [place] in an apartment. He is single. 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 He is mobile with [...] Photos were taken and are available in [employer] after obtaining consent. He has a 1.5 [...] We discussed the acute as well as continuous churn buttermaker risks, including, but not limited to fatigue, [...] by: Bethany Natarajan M.D. 04/16/2020 4:52 PM STOCK UNLOADER Radiation Oncology [facility] [place] [id number] K UNLOADER documented in this encounter Miscellaneous Notes Addendum Note - Mame Amezquita - 04/16/2020 1:00 PM STOCK UNLOADER Encounter addended by: Mame Amezquita on: 04/17/2020 8:34 AM Actions taken: Letter saved K UNLOADER documented in this encounter Plan of Treatment Not on filedocumented as of this encounter Visit Diagnoses Diagnosis Malignant Neoplasm Of Lower Limb Basal C ell Carcinoma Left - Primary Malignant Neoplasm Of Lower Limb Basal C ell Carcinoma Right 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
--- OUTSIDE RECORDS SUMMARY | 2021-12-30 12:54 | XMS_ITS | Encounter Summary ---
:1940 Author Organization [facility] Address [address] [place] [address] Care Team Providers Name Role Phone Unavailable [...] 04/16/2020 1:25 PM Re sults for this LINUX NETWORK ADMINISTRATOR procedure are i n the results section. documented in this encounter Results Pelvis-Oncology Image Exam (04/16/2020 1:25 PM LINUX NETWORK ADMINISTRATOR) Specimen (Source) Anatomical Collection Method Collection Time Re ceived Time Location / / Volume Laterality 04/16/2020 1:25 PM LINUX NETWORK ADMINISTRATOR Narrative [facility] - 04/16/2020 1:28 PM LINUX NETWORK ADMINISTRATOR This order has been created and [...]
--- OUTSIDE RECORDS SUMMARY | 2021-12-30 12:54 | XMS_ITS | Encounter Summary ---
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 [facility] Procedures Prior Auth Rad Tx [place] IMRT COMPLEX [address] [place], [place] [phone] Referral ID Status Reason Start Date Expiration Date Visits Requ ested Visits Authorized [id number] Closed 04/16/2020 04/16/2021 15 15 ICITY WRITER Encounter Details Date Type Department Care Team Description 04/16/2020 Orders Only Department of Bethany Natarajan N eoplasm Of Radiation Oncology in Corinne Adhikari Lower Limb Squamous [place] [address] [facility] Cell Carcinoma Left [address] [place], [place] (Primary Dx) [place] [phone] Social History Tobacco Use Types Packs/Day Years [...]
--- OUTSIDE RECORDS SUMMARY | 2021-12-30 12:54 | XMS_ITS | Encounter Summary ---
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 [facility] Procedures Prior Auth Rad Tx [place] IMRT COMPLEX [address] [place] [address] Referral ID Status Reason Start Date Expiration Date Visits Requ ested Visits Authorized [id number] Closed 04/16/2020 04/16/2021 15 15 Encounter Details Date Type Department Care Team Description 04/26/2020 Hospital Encounter Department of Radiation Shaneka Natarajan I., [facility] [place] [address] [facility] [address] [place] [address] [phone] Social History Tobacco Use Types Packs/Day Years [...]
--- OUTSIDE RECORDS SUMMARY | 2021-12-30 12:54 | XMS_ITS | Encounter Summary ---
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 [facility] Procedures Management Visit [address] [place], [place] [address] Referral ID Status Reason Start Date Expiration Date Visits V isits Requested Authorized [id number] Canceled 04/10/2020 04/10/2021 5 5 Encounter Details Date Type Department Care Team Description 04/26/2020 Hospital Encounter Department of Bethany Natarajan 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; in [place], [facility] Malignant Neoplasm Of Lower Limb Basal C ell Carcinoma Right [place], [place] [address] [facility] [address] [place], [place] [phone] (Work) [phone] Social History Tobacco Use Types Packs/Day Years Used Date Smoking Tobacco: Every Day Sex Assigned at Date Recorded Not on file documented as of this encounter Last Filed Vital Signs Vital Sign Reading Time Taken Comments Blood Pressure 156/86 04/26/2020 2:[address] TRAFFIC CONTROL TECHNICIAN Pulse 92 04/26/2020 2:[address] TRAFFIC CONTROL TECHNICIAN Temperature 36.9 ??C (98.5 ??F) 04/26/2020 2:[address] TRAFFIC CONTROL TECHNICIAN Respiratory Rate - - Oxygen Saturation - - Inhaled Oxygen Concentration - - Weight 95.5 kg (210 lb 8.6 oz) 04/26/2020 2:[address] TRAFFIC CONTROL TECHNICIAN Height - - Body Mass Index [...] 700 1400 3500 04/24/2020 04/25/2020 1 F1_RTInguinal 988 707 6448 04/24/2020 04/25/2020 1 F1_LT Leg 346 376 1138 04/24/2020 04/25/2020 1 Course Summary 04/24/2020 04/25/2020 [...] by: Deedee Fry R.N. 04/26/2020 2:[address] TRAFFIC CONTROL TECHNICIAN ATTESTATION FOR MANAGEMENT VISIT I saw and evaluated the patient and participated in the gregory portions of the service as noted above. I reviewed the documentation of Ms. Deedee Fry RN and agree with the findings and plan. The patient appears well on exam. We will continue with radiation as planned and monitor weekly. Bethany Natarajan M.D., 04/26/2020 WAY TRAFFIC CONTROL TECHNICIAN documented in this encounter Plan of [...]
--- OUTSIDE RECORDS SUMMARY | 2021-12-30 12:54 | XMS_ITS | Encounter Summary ---
:1940 Author Organization [facility] Address [address] [place] [address] Care Team Providers Name Role Phone Unavailable Primary Care Provider Unavailable Encounter Details Date Type Department Care Team Description 02/12/2017 Hospital Encounter HX RST DERM SURG OP Avni Gaffney [facility] M.D. [address] [place] [address] (Wo rk) Social History Tobacco Use Types Packs/Day Years Used Date Smoking Tobacco: Never Assessed Sex Assigned at Date Recorded Not on file documented as of this encounter Last Filed Vital Signs Vital Sign Reading Time Taken Comments Blood Pressure 141/85 02/12/2017 8:05 AM BURNER OPERATOR Vital sign result from Clinical Notes. Pulse 89 02/12/2017 8:05 AM BURNER OPERATOR Vital sign result from Clinical Notes. Temperature [...]
--- OUTSIDE RECORDS SUMMARY | 2021-12-30 12:54 | XMS_ITS | Encounter Summary ---
:1940 Author Organization [facility] Address [address] [place] [address] Care Team Providers Name Role Phone Unavailable [...] 12:35 Result s for this EXAM PM RESEARCH GENETICIST procedure are i n the results section. documented in this encounter Results DERMATOLOGY IMAGE EXAM (02/12/2017 12:35 PM RESEARCH GENETICIST) Specimen (Source) Anatomical Collection Method Collection Time Re ceived Time Location / / Volume Laterality 02/12/2017 12:00 PM RESEARCH GENETICIST Narrative [facility] - 02/12/2017 2:50 PM RESEARCH GENETICIST This order has been created and auto-finalized [...]
--- OUTSIDE RECORDS SUMMARY | 2021-12-30 12:54 | XMS_ITS | Encounter Summary ---
:1940 Author Organization [facility] Address [address] [place] [address] Care Team Providers Name Role Phone Unavailable Primary Care Provider Unavailable Reason for Referral Specialty Diagnoses / Procedures Referred By Contact Refer red To Contact Bethany Natarajan M.D. 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 04/16/2020 ??4:02 PM Initial Rad Onc Treatment Planning CT Si mulation Date/Time: 04/16/2020 3:57 PM Performed by: Bethany Natarajan M.D. Authorized by: Bethany Natarajan M.D. Bethayn Natarajan M.D. RADIATION ONCOLOGY ORDERABLE S Performing Organization Address City/State/ZIP Code Phon e Number ENGADINE LASHAY ENGADINE LASHAY documented in this encounter Visit Diagnoses [...]
--- OUTSIDE RECORDS SUMMARY | 2021-12-30 12:54 | XMS_ITS | Encounter Summary ---
:1940 Author Organization [facility] Address [address] [place] [address] Care Team Providers Name Role Phone Unavailable [...] 04/16/2020 1:28 PM Re sults for this SOURCING MANAGER procedure are i n the results section. documented in this encounter Results Leg-Oncology Image Exam (04/16/2020 1:28 PM SOURCING MANAGER) Specimen (Source) Anatomical Collection Method Collection Time Re ceived Time Location / / Volume Laterality 04/16/2020 1:25 PM SOURCING MANAGER Narrative [facility] - 04/16/2020 1:28 PM SOURCING MANAGER This order has been created and [...]
--- OUTSIDE RECORDS SUMMARY | 2021-12-30 12:54 | XMS_ITS | Encounter Summary ---
:1940 Author Organization [facility] Address [address] [place] [address] Care Team Providers Name Role Phone Unavailable [...] 12:25 Result s for this EXAM PM PUBLIC HOUSING MANAGER procedure are i n the results section. documented in this encounter Results DERMATOLOGY IMAGE EXAM (02/12/2017 12:25 PM PUBLIC HOUSING MANAGER) Specimen (Source) Anatomical Collection Method Collection Time Re ceived Time Location / / Volume Laterality 02/12/2017 12:00 PM PUBLIC HOUSING MANAGER Narrative [facility] - 02/12/2017 2:50 PM PUBLIC HOUSING MANAGER This order has been created and [...]
--- OUTSIDE RECORDS SUMMARY | 2021-12-30 12:54 | XMS_ITS | Encounter Summary ---
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 [facility] Procedures Prior Auth Rad Tx [place] IMRT COMPLEX [address] [place] [address] Referral ID Status Reason Start Date Expiration Date Visits Requ ested Visits Authorized [id number] Closed 04/16/2020 04/16/2021 15 15 Encounter Details Date Type Department Care Team Description 05/01/2020 Hospital Encounter Department of Radiation Shaneka Natarajan I., [facility] [place] [address] [facility] [address] [place] [phone] [phone] Social History Tobacco Use Types Packs/Day Years [...]
--- OUTSIDE RECORDS SUMMARY | 2021-12-30 12:54 | XMS_ITS | Encounter Summary ---
:1940 Author Organization [facility] Address [address] [place] [address] Care Team Providers Name Role Phone Unavailable [...] Onc Treatment Planning CT Simulation [address] [place], [place] [address] Referral ID Status Reason Start Date Expiration Date Visits Requ ested Visits Authorized [id number] Closed 04/10/2020 04/10/2021 1 1 WARE TEST ENGINEER Reason for Visit Radiation Therapy (Routine) - [...] Onc Treatment Planning CT Simulation [address] [place], [place] [address] Referral ID Status Reason Start Date Expiration Date Visits Requ ested Visits Authorized [id number] Closed 04/10/2020 04/10/2021 1 1 Encounter Details Date Type Department Care Team Description 04/16/2020 Hospital Encounter Department of Bethany Natarajan 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 Malignant Neoplasm Of Lower Limb Basal C ell Carcinoma Right [place], [place] [address] [facility] [address] [place], [place] [phone] (Work) [phone] Social History Tobacco Use Types Packs/Day Years [...] planning. CT images were transferred to the Mpayy treatment planning system, after a reference isocenter was determined and marked. Segmentation and treatment planning will take place priorto treatment delivery. Patient set up and imaging was appropriate and completed without incident. Concrete Building Assembler use:No WARE TEST ENGINEER documented in this encounter Plan of Treatment Not on filedocumented as of this encounter Procedures Procedure Name Priority Date/Time Associated Comments Diagnosis INITIAL RAD ONC Routine 04/16/2020 2:00 PM Malignant Neoplasm Results for this TREATMENT PLANNING SOFTWARE TEST ENGINEER Of Lower Limb Basal pr ocedure are in CT SIMULATION Cell Carcinoma L eft the results Malignant Neoplasm section. Of Lower Limb Squamous Cell Carcinoma Left Malignant Neoplasm Of Lower Limb Basal Cell Carcinoma Right documented in this encounter Results Initial Rad Onc Treatment Planning CT Simulation (04/16/2020 2:00 PM SOFTWARE TEST ENGINEER) Specimen (Source) Anatomical Location Collection Method / Collectio n Time Received Time / Laterality Volume Narrative [facility] - 04/16/2020 2:00 PM SOFTWARE TEST ENGINEER Coral Alonso RTT ? 04/16/2020 ??4:02 PM Initial Rad Onc Treatment Planning CT Si mulation Date/Time: 04/16/2020 3:57 PM Performed by: Bethany Natarajan M.D. Authorized by: Bethany Natarajan M.D. Bethany Natarajan M.D. 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
--- OUTSIDE RECORDS SUMMARY | 2021-12-30 12:54 | XMS_ITS | Encounter Summary ---
:[address] 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 [facility] Procedures Prior Auth Rad Tx [place] IMRT COMPLEX [address] [place] [address] Referral ID Status Reason Start Date Expiration Date Visits Requ ested Visits Authorized [id number] Closed 04/16/2020 04/16/2021 15 15 Encounter Details Date Type Department Care Team Description 04/25/2020 Hospital Encounter Department of Radiation Shaneka Natarajan I., [facility] [place] [address] [facility] [address] [place] [phone] [phone] Social History Tobacco Use Types Packs/Day Years [...]
--- OUTSIDE RECORDS SUMMARY | 2021-12-30 12:54 | XMS_ITS | Encounter Summary ---
:1940 Author Organization [facility] Address [address] [place] [address] Care Team Providers Name Role Phone Unavailable [...] 04/16/2020 1:28 PM Re sults for this WEDDING DESIGNER procedure are i n the results section. documented in this encounter Results Leg-Oncology Image Exam (04/16/2020 1:28 PM WEDDING DESIGNER) Specimen (Source) Anatomical Collection Method Collection Time Re ceived Time Location / / Volume Laterality 04/16/2020 1:25 PM WEDDING DESIGNER Narrative [facility] - 04/16/2020 1:28 PM WEDDING DESIGNER This order has been created and auto-finalized [...]
--- OUTSIDE RECORDS SUMMARY | 2021-12-30 12:54 | XMS_ITS | Encounter Summary ---
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 [facility] Procedures Prior Auth Rad Tx [place] IMRT COMPLEX [address] [place] [address] Referral ID Status Reason Start Date Expiration Date Visits Requ ested Visits Authorized [id number] Closed 04/16/2020 04/16/2021 15 15 Encounter Details Date Type Department Care Team Description 04/24/2020 Hospital Encounter Department of Radiation Shaneka Natarajan I., [facility] [place] [address] [facility] [address] [place] [phone] [phone] Social History Tobacco Use Types Packs/Day Years [...]
--- OUTSIDE RECORDS SUMMARY | 2021-12-30 12:54 | XMS_ITS | Encounter Summary ---
:1940 Author Organization [facility] Address [address] [place] [address] Care Team Providers Name Role Phone Unavailable Primary Care Provider Unavailable Reason for Visit Reason Comments Lab Monitoring Encounter Details Date Type Department Care Team Description 04/19/2020 Documentation Department of Radiation Deedee Fry, Lab Monitoring Oncology in [facility] [address] [facility] [address] [place] [phone] [phone] (Wo rk) Social History Tobacco Use Types Packs/Day Years Used Date Smoking Tobacco: Every Day Sex Assigned at Date Recorded Not on file documented as of this encounter Progress Notes Deedee Fry RJhonN. - 04/19/2020 10:39 AM CST Lab result entered in STANT PLANT CONTROL OPERATOR documented in this encounter Plan of Treatment Not on filedocumented as of this encounter Procedures Procedure Name Priority Date/Time Associated Diagnosis Comme nts LABEXT SARS Routine 04/17/2020 12:00 AM Results for this CORONAVIRUS-2 ASSISTANT PLANT CONTROL OPERATOR procedure are in (COVID-19) RNA the results section. documented in this encounter Results EXT SARS Coronavirus-2 (COVID-19) RNA (04/17/2020 12:00 AM ASSISTANT PLANT CONTROL OPERATOR) [facility] Method Time Signature EXT Undetected Inconclus [facility] SARS-CoV-2 sylvia, LABORATORIES - RNA Indetermi [facility] elías, CAMPUS Invalid, Negative, Not Detected, Undetecte d, Other (specify in comment) Specimen (Source) Anatomical Location Collection Method / Collectio n Time Received Time / Laterality Volume Swab 04/17/2020 Bethany Natarajan M.D. LAB MICROBIOLOGY - GENERAL O RDERABLES Performing Organization Address City/State/ZIP Code Phon e Number [facility] - [address] [place] [address] [address] [facility] documented in this encounter Visit Diagnoses Not on filedocumented in this encounter
--- OUTSIDE RECORDS SUMMARY | 2021-12-30 12:54 | XMS_ITS | Encounter Summary ---
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 [facility] Procedures Prior Auth Rad Tx [place] IMRT COMPLEX [address] [place] [address] Referral ID Status Reason Start Date Expiration Date Visits Requ ested Visits Authorized [id number] Closed 04/16/2020 04/16/2021 15 15 Encounter Details Date Type Department Care Team Description 04/30/2020 Hospital Encounter Department of Radiation Shaneka Natarajan I., [facility] [place] [address] [facility] [address] [place] [phone] [phone] Social History Tobacco Use Types Packs/Day Years [...]
--- OUTSIDE RECORDS SUMMARY | 2021-12-30 12:54 | XMS_ITS | Encounter Summary ---
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 [facility] Procedures Prior Auth Rad Tx [place] IMRT COMPLEX [address] [place] [address] Referral ID Status Reason Start Date Expiration Date Visits Requ ested Visits Authorized [id number] Closed 04/16/2020 04/16/2021 15 15 Encounter Details Date Type Department Care Team Description 04/29/2020 Hospital Encounter Department of Radiation Shaneka Natarajan I., [facility] [place] [address] [facility] [address] [place] [phone] [phone] Social History Tobacco Use Types Packs/Day Years [...]
--- OUTSIDE RECORDS SUMMARY | 2021-12-30 12:55 | XMS_ITS | Encounter Summary ---
:1940 Author Organization [facility] Address [address] [place] [address] Care Team Providers Name Role Phone Unavailable [...] 12:05 Result s for this EXAM PM IT HELP DESK ANALYST procedure are i n the results section. documented in this encounter Results DERMATOLOGY IMAGE EXAM (02/12/2017 12:05 PM IT HELP DESK ANALYST) Specimen (Source) Anatomical Collection Method Collection Time Re ceived Time Location / / Volume Laterality 02/12/2017 12:00 PM IT HELP DESK ANALYST Narrative [facility] - 02/12/2017 2:49 PM IT HELP DESK ANALYST This order has been created and [...]
--- OUTSIDE RECORDS SUMMARY | 2021-12-30 12:55 | XMS_ITS | Encounter Summary ---
:1940 Author Organization [facility] Address [address] [place] [address] Care Team Providers Name Role Phone Unavailable [...] 12:00 Result s for this EXAM PM ACCOUNTING SUPPORT SPECIALIST procedure are i n the results section. documented in this encounter Results DERMATOLOGY IMAGE EXAM (01/19/2017 12:00 PM ACCOUNTING SUPPORT SPECIALIST) Specimen (Source) Anatomical Location Collection Method / Collectio n Time Received Time / Laterality Volume Narrative [facility] - 01/19/2017 4:19 PM ACCOUNTING SUPPORT SPECIALIST This order has been created and auto-finalized to support the import of images acquired without order. The clini arash documentation to support these images can be found on the encounter moinka t produced images. Provider Not In System IMG NON RAD IMAGING PROCEDUR ES Performing Organization Address City/State/ZIP Code Phon e Number [facility] NA documented in this encounter Visit Diagnoses Not on filedocumented in this encounter
--- OUTSIDE RECORDS SUMMARY | 2021-12-30 12:55 | XMS_ITS | Encounter Summary ---
:1940 Author Organization [facility] Address [address] [place] [address] Care Team Providers Name Role Phone Unavailable [...] 12:00 Result s for this EXAM PM TANK FARM GAUGER procedure are i n the results section. documented in this encounter Results DERMATOLOGY IMAGE EXAM (02/12/2017 12:00 PM TANK FARM GAUGER) Specimen (Source) Anatomical Collection Method Collection Time Re ceived Time Location / / Volume Laterality 02/12/2017 12:00 PM TANK FARM GAUGER Narrative [facility] - 02/12/2017 2:49 PM TANK FARM GAUGER This order has been created and auto-finalized [...]
--- OUTSIDE RECORDS SUMMARY | 2021-12-30 12:55 | XMS_ITS | Encounter Summary ---
:1940 Author Organization [facility] Address [address] [place] [address] Care Team Providers Name Role Phone Unavailable [...] 12:10 Result s for this EXAM PM FIRST COAT SANDER procedure are i n the results section. documented in this encounter Results DERMATOLOGY IMAGE EXAM (02/12/2017 12:10 PM FIRST COAT SANDER) Specimen (Source) Anatomical Collection Method Collection Time Re ceived Time Location / / Volume Laterality 02/12/2017 12:00 PM FIRST COAT SANDER Narrative [facility] - 02/12/2017 2:49 PM FIRST COAT SANDER This order has been created and auto-finalized [...]
--- NOTE | 2021-12-30 14:00 | CRLHL7_ITS ---
For Patients: As a result of the Century Cures Act, medical imaging exams and procedure reports are released immediately into your electronic medical record. You may view this report before your referring provider. If you have questions, please contact your health care provider. INDICATION: Right groin wound. TECHNIQUE: AP pelvis and 2 views of the right hip. FINDINGS: Postsurgical change from amputation of the right lower extremity with only a short segment of the proximal most right femur remaining. There are surgical clips within the right inguinal region. Vascular calcification within the stump. Skeletal demineralization likely due to disuse. There may be air within the soft tissues. Please correlate clinically regarding any recent surgical procedure. No plain radiographic evidence for osteomyelitis. Surgical clips in the proximal left lower extremity. IMPRESSION: Postsurgical changes as described. 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 Postsurgical change right inguinal region. Questionable air in the soft tissues possibly postprocedural in nature. No evidence for osteomyelitis. Dictated by Yimi Bell MD @ 12/30/2021 6:47:46 PM (Electronically Signed)
== END 2021-12-30 12:52 | disposition home or self-care (01) ==
PROVIDERS: PCP Family Medicine; Visit Provider Nurse Practitioner Family
DX: L59.8 Other specified disorders of the skin and subcutaneous tissue related to radiation (principal); L97.812 Non-pressure chronic ulcer of other part of right lower leg with fat layer exposed
CPT/HCPCS: 15271; 73502; 99212; Q4121

== ENCOUNTER 2022-01-06 12:54 | Outpatient (CLI) | payer OTHER, SELFPAY ==
--- OUTSIDE RECORDS SUMMARY | 2022-01-06 12:55 | XMS_ITS | Encounter Summary ---
:1940 Author Organization [facility] Address [address] [place] [address] Care Team Providers Name Role Phone Unavailable Primary Care Provider Unavailable Encounter Details Date Type Department Care Team Description 07/10/2020 Clinical Communication Department of Bethany Natarajan Radiation Oncology in [place] Adhikari [facility] [address] [facility] [address] [place] [phone] Social History Tobacco Use Types Packs/Day Years [...] informed him that a prescription for the [place] has been sent to the [facility] in [place]. Phone number: [phone] Is it okay to leave a voicemail on answering machine with test results? Yes Pharmacy (if medication related): N/A Elif Parkinson documented in this encounter Plan of Treatment Not on filedocumented as of this encounter Visit Diagnoses Not on filedocumented in this encounter
--- OUTSIDE RECORDS SUMMARY | 2022-01-06 12:55 | XMS_ITS | Encounter Summary ---
:1940 Author Organization [facility] Address [address] [place] [address] Care Team Providers Name Role Phone Unavailable Primary Care Provider Unavailable Reason for Visit Reason Comments Follow-up Encounter Details Date Type Department Care Team Description 10/30/2020 Clinical Communication Department of Bethany Natarajanzuhair Radiation Oncology in [place] Adhikari [facility] [address] [facility] [address] [place] [phone] Social History Tobacco Use Types Packs/Day Years [...] center to help with this. Phone number: [phone] Is it okay to leave a voicemail on answering machine with test results? No Pharmacy (if medication related): N/A Elif Parkinson documented in this encounter Plan of Treatment Not on filedocumented as of this encounter Visit Diagnoses Not on filedocumented in this encounter
--- OUTSIDE RECORDS SUMMARY | 2022-01-06 12:55 | XMS_ITS | Clinical Summary ---
:1940 Author Organization [facility] Address [address] [place] [address] Care Team Providers Name Role Phone Unavailable Primary Care Provider Unavailable Source Comments Patient records contain information from all sites at [facility]. For routine questions regarding patient records, call [phone] during business hours, M-F 8:00 AM - 5:00 PM Central Time. Record requests for emergency care only can be directed to [phone] at any time.[facility] Allergies Active Allergy Reactions Severity [...] Phone Addre ss Type Group [facility] [id number] 2021-Present [phone] [address] [place] [address]
--- OUTSIDE RECORDS SUMMARY | 2022-01-06 12:55 | XMS_ITS | Encounter Summary ---
:1940 Author Organization [facility] Address [address] [place] [address] Care Team Providers Name Role Phone Unavailable Primary Care Provider Unavailable Reason for Referral Outpatient (Routine) - Closed Specialty Diagnoses / Procedures Referred By Contact Refer red To Contact Radiation Oncology Bethany Natarajan [facility] M.[facility] [address] [place] [address] Referral ID Status Reason Start Date Expiration Date Visits Requ ested Visits Authorized [id number] Closed 05/28/2020 05/28/2021 1 1 Scheduling Instructions 2-3 weeks with CECY and Deedee Reason for Visit Outpatient (Routine) - Closed Specialty Diagnoses / Procedures Referred By Contact Refer red To Contact Radiation Oncology Bethany Natarajan [facility] M.D. [address] [place] [phone] Referral ID Status Reason Start Date Expiration Date Visits Requ ested Visits Authorized [id number] Closed 05/28/2020 05/28/2021 1 1 Encounter Details Date Type Department Care Team Description 06/11/2020 Hospital Encounter Department of Bethany Natarajan (Primary Dx) Radiation Oncology [place] Adhikari in [place], [address] [place] [address] [address] [facility] [address] [place], [place] [phone] (Work) [phone] Social History Tobacco Use Types Packs/Day Years [...] a 8 out of 10.He takes 1 [place] in the morning and 1 at bedtime. [...] will send through prescription refill on his [place] to his preferred pharmacy today. Patient is [...] Deedee Fry R.N. 06/11/2020 1:09 PM CDT [facility] [address] [place] [address] documented in this encounter Plan of Treatment Scheduled Referrals Name Type Priority Associated Order Schedule Diagnoses Radiation Oncology Outpatient Referral Routine On ce for 1 office visit Occurrences sta rting (clinic) 06/11/2020 unti l 06/11/2020 documented as of this encounter Visit Diagnoses Diagnosis Red Eye - Primary documented in this encounter
--- OUTSIDE RECORDS SUMMARY | 2022-01-06 12:55 | XMS_ITS | Encounter Summary ---
:1940 Author Organization [facility] Address [address] [place] [address] Care Team Providers Name Role Phone Unavailable Primary Care Provider Unavailable Reason for Referral Outpatient (Routine) - Closed Specialty Diagnoses / Procedures Referred By Contact Refer red To Contact Radiation Oncology Bethany Natarajan [facility] M.[facility]. [address] [place] [address] Referral ID Status Reason Start Date Expiration Date Visits Requ ested Visits Authorized [id number] Closed 05/28/2020 05/28/2021 1 1 Scheduling Instructions 2-3 weeks with CECY and Deedee Outpatient (Routine) - Closed Specialty Diagnoses / Procedures Referred By Contact Refer red To Contact Radiation Oncology Bethany Natarajan [facility] M.[facility] [address] [place] [address] Referral ID Status Reason Start Date Expiration Date Visits Requ ested Visits Authorized [id number] Closed 05/15/2020 05/15/2021 1 1 Scheduling Instructions Deedee first to assess skin Reason for Visit Outpatient (Routine) - Closed Specialty Diagnoses / Procedures Referred By Contact Refer red To Contact Radiation Oncology Bethany Natarajan [facility] M[facility] 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 05/28/2020 1:16 PM CDT [facility] [address] [place] [address] ATTESTATION FOR FOLLOW-UP VISIT I saw and [...]
--- OUTSIDE RECORDS SUMMARY | 2022-01-06 12:55 | XMS_ITS | Encounter Summary ---
:1940 Author Organization [facility] Address [address] [place] [address] Care Team Providers Name Role Phone Unavailable Primary Care Provider Unavailable Encounter Details Date Type Department Care Team Description 09/27/2020 Clinical Communication Department of Bethany Natarajan Radiation Oncology in [place] Adhikari [facility] [address] [facility] [address] [place] [phone] Social History Tobacco Use Types Packs/Day Years [...]
--- OUTSIDE RECORDS SUMMARY | 2022-01-06 12:55 | XMS_ITS | Encounter Summary ---
:1940 Author Organization [facility] Address [address] [place] [address] Care Team Providers Name Role Phone Unavailable Primary Care Provider Unavailable Reason for Visit Reason Comments Med Refill Encounter Details Date Type Department Care Team Description 08/08/2020 Clinical Communication Department of Travis Hall Refjoanne Radiation Oncology in [facility] [address] [place] [phone] Social History Tobacco Use Types Packs/Day Years Used Date Smoking Tobacco: Every Day Sex Assigned at Date Recorded Not on file documented as of this encounter Miscellaneous Notes Telephone Encounter - Deedee Fry R.N. - 08/08/2020 1:06 PM CDT Information Discussed I called and left voicemail on patient's phone requesting call back. Patient reported that he was taking [place] twice a day at his last in office visit with us. PLAN Dr. Natarajan and I will send through refill on Windsor to get him through until August 16, 2020, when he is scheduled for follow up with Dr. Natarajan in [place]. Disposition/Recommendation: I requested call back, refill will [...] can be done or not Phone number: [phone] Is it okay to leave a voicemail on answering machine with test results? Yes Pharmacy (if medication related): [facility] [address] [place] [address] Paula Hall documented in this encounter Plan of Treatment Not on filedocumented as of this encounter Visit Diagnoses Not on filedocumented in this encounter
--- OUTSIDE RECORDS SUMMARY | 2022-01-06 12:55 | XMS_ITS | Encounter Summary ---
:1940 Author Organization [facility] Address [address] [place] [address] Care Team Providers Name Role Phone Unavailable Primary Care Provider Unavailable Reason for Visit Reason Comments Med Refill Encounter Details Date Type Department Care Team Description 07/09/2020 Clinical Communication Department of Bethany Natarajan ed [facility] [address] [facility] [address] [place] [phone] Social History Tobacco Use Types Packs/Day Years [...] would like a refill today. Phone number: [phone] Is it okay to leave a voicemail on answering machine with test results? Yes Pharmacy (if medication related): [facility] [address] [place] [address] [address] [facility] [address] [facility] [address] Paula Hall documented in this encounter Plan of Treatment Not on filedocumented as of this encounter Visit Diagnoses Not on filedocumented in this encounter
--- OUTSIDE RECORDS SUMMARY | 2022-01-06 12:55 | XMS_ITS | Clinical Summary ---
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 05/02/2009 Overview: Per preop, EF of 39% [...] Comments Blood Pressure 123/73 04/16/2014 2:19 PM CASEWORK MANAGER Pulse 115 04/16/2014 2:19 PM CASEWORK MANAGER Temperature 38.3 ??C (100.9 ??F) 04/16/2014 3:30 PM CASEWORK MANAGER Respiratory Rate 20 04/16/2014 2:19 PM CASEWORK MANAGER Oxygen Saturation 94% 04/16/2014 2:19 PM CASEWORK MANAGER Inhaled Oxygen Concentration - - Weight 86.1 kg (189 lb 13.1 oz) 04/16/2014 5:00 AM CASEWORK MANAGER Height 180.3 cm (5' 10.98) 04/02/2014 12:00 AM CASEWORK MANAGER Body Mass Index 26.49 04/02/2014 12:00 AM CASEWORK MANAGER Plan of Treatment Health Maintenance Due Date [...] 65+ 10/23/2021 Medical Devices Implanted Type Area Home Economics Extension Worker Device Shelf Model / Identifier Expiration Serial / Date Lot Screw Self Drilling 3.5x15mm - [id number] N/A: Spine SOFAMOR DANEK [id number] / Implanted: Qty: 4 on 06/24/2010 at / Humeral Tray Left: [id number] / Implanted: Qty: 1 on 03/17/2012 at Shoulder / [id number] Description: HUMERAL TRAY Explanted Type Area Home Economics Extension Worker Device Shelf Model / Identifier Expiration Serial / Date Lot Patch Vasc 0.8x8cm Xenosure Biological Pericardial - [id number] Right: Lemaitre 0.8P8# / Explanted: Qty: 1 on 03/09/2014 at [employer] / [id number] Results Not on filefrom Last 3 Months Insurance Payer Benefit Plan / Subscriber ID Effective Dates Phone Addre ss Type Group [facility] [id number] 2015-Present [address] [place] [address] Guarantor Name Account Type Relation to Date of Phone Bill ing Patient Address Tl Lugo Personal/Family Self 1940 [phone] (Home) [place] [address] Advance Directives Documents on File Type Date Recorded Patient Chef Under Explanati on Healthcare Directive 05/12/2009 Healthcare Directive 06/26/2010 Latest Code Status on File Code Status Date Activated Date Inactivated Comments Full Code 04/16/2014 2:21 PM Full Code 03/07/2014 8:16 PM 04/16/2014 2:21 PM Full Code 03/07/2014 12:01 PM 03/07/2014 8:16 PM Full Code 02/28/2014 6:12 AM 02/28/2014 11:11 PM Full Code 03/17/2012 12:44 PM 03/19/2012 4:35 PM Care Teams Type Bar And Segment Assembler Relationship Specialty Start Date End Date Alfredo Starr MD PCP - General 11/13/08
--- OUTSIDE RECORDS SUMMARY | 2022-01-06 12:55 | XMS_ITS ---
:1940 Author Organization [facility] Address [address] [place] [address] Care Team Providers Name Role Phone Unavailable [...] Elapsed Days Session Dose Total Dos e [id number] 05/15/2020 21 300 cGy 4,500 cGy [id number] 05/06/2020 12 425 cGy 3,825 cGy [id number] 04/26/2020 2 700 cGy 2,100 cGy
--- OUTSIDE RECORDS SUMMARY | 2022-01-06 12:56 | XMS_ITS | Encounter Summary ---
:1940 Author Organization [facility] Address [address] [place] [address] Care Team Providers Name Role Phone Unavailable [...] 04/16/2020 1:28 PM Re sults for this LINTER DRIER OPERATOR procedure are i n the results section. documented in this encounter Results Leg-Oncology Image Exam (04/16/2020 1:28 PM LINTER DRIER OPERATOR) Specimen (Source) Anatomical Collection Method Collection Time Re ceived Time Location / / Volume Laterality 04/16/2020 1:25 PM LINTER DRIER OPERATOR Narrative IIMS - 04/16/2020 1:28 PM LINTER DRIER OPERATOR This order has been created and [...]
--- OUTSIDE RECORDS SUMMARY | 2022-01-06 12:56 | XMS_ITS | Encounter Summary ---
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 [facility] Procedures Prior Auth Rad Tx [place] IMRT COMPLEX [address] [place] [address] Referral ID Status Reason Start Date Expiration Date Visits Requ ested Visits Authorized [id number] Closed 04/16/2020 04/16/2021 15 15 Encounter Details Date Type Department Care Team Description 04/29/2020 Hospital Encounter Department of Radiation [facility]ka [facility]ajan I., [facility] [place] [address] [email or web address] [address] [place] [address] [phone] Social History Tobacco Use Types Packs/Day Years [...]
--- OUTSIDE RECORDS SUMMARY | 2022-01-06 12:56 | XMS_ITS | Encounter Summary ---
:1940 Author Organization [facility] Address [address] [place] [address] Care Team Providers Name Role Phone Unavailable Primary Care Provider Unavailable Reason for Referral Outpatient (Routine) - Closed Specialty Diagnoses / Procedures Referred By Contact Refer red To Contact Radiation Oncology Bethany Natarajan [facility] [address] [place] [address] Referral ID Status Reason Start Date Expiration Date Visits Requ ested Visits Authorized [id number] Closed 05/15/2020 05/15/2021 1 1 Scheduling Instructions Deedee first to assess skin Radiation Therapy (Routine) - Canceled Specialty Diagnoses / Procedures Referred By Contact Refer red To Contact Diagnoses 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 [facility] Region Procedures Management Visit [address] [place] [address] Referral ID Status Reason Start Date Expiration Date Visits V isits Requested Authorized [id number] Canceled 04/10/2020 04/10/2021 5 5 Encounter Details Date Type Department Care Team Description 05/15/2020 Hospital Encounter Department of Bethany Natarajan Neoplasm Of Lower Limb Basal Cell Carcinoma Left; Radiation Oncology Corinne Adhikari 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; in [place], [address] [facility] Malignant Neoplasm Of Lower Limb Basal C ell Carcinoma Right [place], [place] [address] [facility] [address] [place], [place] [phone] [address] (Work) [phone] Social History Tobacco Use Types Packs/Day Years [...] 2020 to complete skin assessment. Radiation Oncology [place] can be contacted at anytime for any questions or concerns. Patient stated a full understanding to the plan of care discussed today. Toxicities reviewed with Dr. Natarajan today. Signed by: Deedee Fry R.N. 05/15/2020 2:59 PM CDT [facility] Radiation Therapy [facility] [address] [place] [address] documented in this encounter Plan of Treatment [...]
--- OUTSIDE RECORDS SUMMARY | 2022-01-06 12:56 | XMS_ITS | Encounter Summary ---
:1940 Author Organization [facility] Address [address] [place] [address] Care Team Providers Name Role Phone Unavailable Primary Care Provider Unavailable Encounter Details Date Type Department Care Team Description 05/15/2020 Hospital Encounter Department of Radiation Shaneka Natarajan I., Oncology in [facility] [address] [place] [address] [place] [address] [phone] Social History Tobacco Use Types Packs/Day Years [...]
--- OUTSIDE RECORDS SUMMARY | 2022-01-06 12:56 | XMS_ITS | Encounter Summary ---
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 [facility] Procedures Prior Auth Rad Tx [place] IMRT COMPLEX [address] [place] [address] Referral ID Status Reason Start Date Expiration Date Visits Requ ested Visits Authorized [id number] Closed 04/16/2020 04/16/2021 15 15 Encounter Details Date Type Department Care Team Description 05/14/2020 Hospital Encounter Department of Radiation Shaneka Natarajan I., [facility] [place] [facility] [place] [address] [facility] [address] [place] [address] [phone] Social History Tobacco Use Types Packs/Day Years [...]
--- OUTSIDE RECORDS SUMMARY | 2022-01-06 12:56 | XMS_ITS | Encounter Summary ---
:1940 Author Organization [facility] Address [address] [place] [address] Care Team Providers Name Role Phone Unavailable [...] 12:30 Result s for this EXAM PM DIMENSIONAL ENGINEER procedure are i n the results section. documented in this encounter Results DERMATOLOGY IMAGE EXAM (02/12/2017 12:30 PM DIMENSIONAL ENGINEER) Specimen (Source) Anatomical Collection Method Collection Time Re ceived Time Location / / Volume Laterality 02/12/2017 12:00 PM DIMENSIONAL ENGINEER Narrative IIMS - 02/12/2017 2:50 PM DIMENSIONAL ENGINEER This order has been created and [...]
--- OUTSIDE RECORDS SUMMARY | 2022-01-06 12:56 | XMS_ITS | Encounter Summary ---
:1940 Author Organization [facility] Address [address] [place] [address] Care Team Providers Name Role Phone Unavailable Primary Care Provider Unavailable Reason for Referral Specialty Diagnoses / Procedures Referred By Contact Refer red To Contact Bethany Natarajan M.D. 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 [facility] [place] [facility] Procedures Initial Rad Onc Treatment Planning CT Simulation [address] [place] [address] Referral ID Status Reason Start Date Expiration Date Visits Requ ested Visits Authorized [id number] Closed 04/10/2020 04/10/2021 1 1 CUTTER Encounter Details Date Type Department Care Team Description 04/10/2020 Orders Only Department of Bethany Natarajan Malignant N eoplasm Of Lower Limb Basal Cell Carcinoma Left (Primary Dx); Radiation Oncology in [place] Adhikari 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; [facility] a [address] [facility] Malignant Neoplasm Of Lower Limb Basal C ell Carcinoma Right [address] [place] [phone] Social History Tobacco Use Types Packs/Day Years [...] Treatment Planning CT Simulation (04/16/2020 2:00 PM STAY CUTTER) Specimen (Source) Anatomical Location Collection Method / Collectio n Time Received Time / Laterality Volume Narrative LAYO METZ - 04/16/2020 2:00 PM STAY CUTTER Coral Alonso RTT ? 04/16/2020 ??4:02 PM Initial Rad Onc Treatment Planning CT Si mulation Date/Time: 04/16/2020 3:57 PM Performed by: Bethany Natarajan M.D. Authorized by: Bethany Natarajan M.D. Bethany Natarajan M.D. RADIATION ONCOLOGY ORDERABLE S Performing Organization Address City/State/ZIP Code Phon e Number BESSEMER LASHAY BESSEMER LASHAY documented in this encounter Visit Diagnoses [...]
--- OUTSIDE RECORDS SUMMARY | 2022-01-06 12:56 | XMS_ITS | Encounter Summary ---
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 [facility] Procedures Prior Auth Rad Tx [place] IMRT COMPLEX [address] [place] [address] Referral ID Status Reason Start Date Expiration Date Visits Requ ested Visits Authorized [id number] Closed 04/16/2020 04/16/2021 15 15 Encounter Details Date Type Department Care Team Description 04/26/2020 Hospital Encounter Department of Radiation Shaneka Nataarjan I., [facility] [place] [address] [facility] [address] [place] [address] [phone] Social History Tobacco Use Types Packs/Day Years [...]
--- OUTSIDE RECORDS SUMMARY | 2022-01-06 12:56 | XMS_ITS | Encounter Summary ---
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 [facility] Procedures Prior Auth Rad Tx [place] IMRT COMPLEX [address] [place] [address] Referral ID Status Reason Start Date Expiration Date Visits Requ ested Visits Authorized [id number] Closed 04/16/2020 04/16/2021 15 15 Encounter Details Date Type Department Care Team Description 05/01/2020 Hospital Encounter Department of Radiation Shaneka Natarajan I., [facility] [place] [address] [facility] [address] [place] [phone] [phone] Social History Tobacco Use Types Packs/Day Years [...]
--- OUTSIDE RECORDS SUMMARY | 2022-01-06 12:56 | XMS_ITS | Encounter Summary ---
:1940 Author Organization 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 [facility] Procedures Prior Auth Rad Tx [place] IMRT COMPLEX [address] [place] [address] Referral ID Status Reason Start Date Expiration Date Visits Requ ested Visits Authorized [id number] Closed 04/16/2020 04/16/2021 15 15 Encounter Details Date Type Department Care Team Description 05/08/2020 Hospital Encounter Department of Radiation Shaneka Natarajan I., [facility] [place] [address] [facility] [address] [place] [address] [phone] Social History Tobacco Use Types Packs/Day Years [...]
--- OUTSIDE RECORDS SUMMARY | 2022-01-06 12:56 | XMS_ITS | Encounter Summary ---
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 [facility] Procedures Prior Auth Rad Tx [place] IMRT COMPLEX [address] [place] [address] Referral ID Status Reason Start Date Expiration Date Visits Requ ested Visits Authorized [id number] Closed 04/16/2020 04/16/2021 15 15 Encounter Details Date Type Department Care Team Description 05/09/2020 Hospital Encounter Department of Radiation Shaneka Natarajan I., [facility] [place] [address] [facility] [address] [place] [address] [phone] Social History Tobacco Use Types Packs/Day Years [...]
--- OUTSIDE RECORDS SUMMARY | 2022-01-06 12:56 | XMS_ITS | Encounter Summary ---
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 [facility] Procedures Prior Auth Rad Tx [place] IMRT COMPLEX [address] [place] [address] Referral ID Status Reason Start Date Expiration Date Visits Requ ested Visits Authorized [id number] Closed 04/16/2020 04/16/2021 15 15 Encounter Details Date Type Department Care Team Description 05/03/2020 Hospital Encounter Department of Radiation Shaneka Natarajan I., [facility] [place] [address] [facility] [address] [place] [address] [phone] Social History Tobacco Use Types Packs/Day Years [...]
--- OUTSIDE RECORDS SUMMARY | 2022-01-06 12:56 | XMS_ITS | Encounter Summary ---
:[address] 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 [facility] Procedures Management Visit [address] [place], [place] [address] Referral ID Status Reason Start Date Expiration Date Visits V isits Requested Authorized [id number] Canceled 04/10/2020 04/10/2021 5 5 Encounter Details Date Type Department Care Team Description 05/01/2020 Hospital Encounter Department of Bethany Natarajan 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; in [place], [facility] Malignant Neoplasm Of Lower Limb Basal C ell Carcinoma Right [place], [place] [address] [facility] [address] [place], [place] [phone] (Work) [phone] Social History Tobacco Use Types Packs/Day Years Used Date Smoking Tobacco: Every Day Sex Assigned at Date Recorded Not on file documented as of this encounter Last Filed Vital Signs Vital Sign Reading Time Taken Comments Blood Pressure 148/82 05/01/2020 1:55 PM SPRAY II PAINTER Pulse 86 05/01/2020 1:55 PM SPRAY II PAINTER Temperature 36.3 ??C (97.3 ??F) 05/01/2020 1:55 PM SPRAY II PAINTER Respiratory Rate - - Oxygen Saturation [...] Quynh Moreno P.A.-C. M.SJhon 05/01/2020 2:25 PM SPRAY II PAINTER Y II PAINTER Associated attestation - Bethany Natarajan M.D. - 05/01/2020 4:43 PM SPRAY II PAINTER I saw and evaluated the patient and [...]
--- OUTSIDE RECORDS SUMMARY | 2022-01-06 12:56 | XMS_ITS | Encounter Summary ---
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 [facility] Procedures Prior Auth Rad Tx [place] IMRT COMPLEX [address] [place] [address] Referral ID Status Reason Start Date Expiration Date Visits Requ ested Visits Authorized [id number] Closed 04/16/2020 04/16/2021 15 15 Encounter Details Date Type Department Care Team Description 05/02/2020 Hospital Encounter Department of Radiation Shaneka Natarajan I., [facility] [place] [address] [facility] [address] [place] [address] [phone] Social History Tobacco Use Types Packs/Day Years [...]
--- OUTSIDE RECORDS SUMMARY | 2022-01-06 12:56 | XMS_ITS | Encounter Summary ---
:1940 Author Organization [facility] Address [address] [place] [address] Care Team Providers Name Role Phone Unavailable Primary Care Provider Unavailable Reason for Visit Reason Comments Lab Monitoring Encounter Details Date Type Department Care Team Description 04/19/2020 Documentation Department of Radiation Deedee Fry, Lab Monitoring Oncology in [facility] [address] [facility] [address] [place] [address] [phone] (Wo rk) Social History Tobacco Use Types Packs/Day Years Used Date Smoking Tobacco: Every Day Sex Assigned at Date Recorded Not on file documented as of this encounter Progress Notes Deedee Fry RJhonN. - 04/19/2020 10:39 AM CST Lab result entered in [facility] CUSTOMER SERVICE REPRESENTATIVE documented in this encounter Plan of Treatment Not on filedocumented as of this encounter Procedures Procedure Name Priority Date/Time Associated Diagnosis Comme nts LABEXT SARS Routine 04/17/2020 12:00 AM Results for this CORONAVIRUS-2 BRANCH CUSTOMER SERVICE REPRESENTATIVE procedure are in (COVID-19) RNA the results section. documented in this encounter Results EXT SARS Coronavirus-2 (COVID-19) RNA (04/17/2020 12:00 AM BRANCH CUSTOMER SERVICE REPRESENTATIVE) [facility] Method Time Signature EXT Undetected Inconclus [facility] SARS-CoV-2 sylvia, LABORATORIES - RNA Indetermi [facility] elías, CAMPUS Invalid, Negative, Not Detected, Undetecte d, Other (specify in comment) Specimen (Source) Anatomical Location Collection Method / Collectio n Time Received Time / Laterality Volume Swab 04/17/2020 Bethany Natarajan M.D. LAB MICROBIOLOGY - GENERAL O RDERABLES Performing Organization Address City/State/ZIP Code Phon e Number [facility]IES - [address] [place] [address] 05 [facility] documented in this encounter Visit Diagnoses Not on filedocumented in this encounter
--- OUTSIDE RECORDS SUMMARY | 2022-01-06 12:56 | XMS_ITS | Encounter Summary ---
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 [facility] Procedures Prior Auth Rad Tx [place] IMRT COMPLEX [address] [place] [address] Referral ID Status Reason Start Date Expiration Date Visits Requ ested Visits Authorized [id number] Closed 04/16/2020 04/16/2021 15 15 Encounter Details Date Type Department Care Team Description 04/24/2020 Hospital Encounter Department of Radiation Shaneka Natarajan I., [facility] [place] [address] [facility] [address] [place] [phone] [phone] Social History Tobacco Use Types Packs/Day Years [...]
--- OUTSIDE RECORDS SUMMARY | 2022-01-06 12:56 | XMS_ITS | Encounter Summary ---
:1940 Author Organization [facility] Address [address] [place] [address] Care Team Providers Name Role Phone Unavailable Primary Care Provider Unavailable Reason for Visit Appointment Request (Routine) - Closed Specialty Diagnoses / Procedures Referred By Contact Refer red To Contact Radiation Oncology Diagnoses Malignant Neoplasm Of Skin Basal Cell Carcinoma Malignant Neoplasm Of Skin Squamous Cell Carcinoma Annita Jay M.D. [address] [place] [address] Referral ID Status Reason Start Date Expiration Date Visits Requ ested Visits Authorized [id number] Closed 03/08/2020 03/08/2021 1 1 Encounter Details Date Type Department Care Team Description 04/16/2020 Hospital Encounter Department of Bethany Natarajan Neoplasm Of Lower Limb Basal Cell Carcinoma Left (Primary Dx); Radiation Oncology Corinne Adhikari Malignant Neoplasm Of Lower Limb Basal C ell Carcinoma Right; in [place], [address] [place] [address] 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 [place], [place] [address] [facility] [address] [place], [place] [phone] (Work) [phone] Social History Tobacco Use Types Packs/Day Years Used Date Smoking Tobacco: Every Day Sex Assigned at Date Recorded Not on file documented as of this encounter Last Filed Vital Signs Vital Sign Reading Time Taken Comments Blood Pressure 124/76 04/16/2020 12:50 PM COMMERCIAL ACCOUNTANT Pulse 93 04/16/2020 12:50 PM COMMERCIAL ACCOUNTANT Temperature 37.2 ??C (99 ??F) 04/16/2020 12:50 PM COMMERCIAL ACCOUNTANT Respiratory Rate - - Oxygen Saturation - - Inhaled Oxygen Concentration - - Weight 95.5 kg (210 lb 8.6 oz) 04/16/2020 12:50 PM COMMERCIAL ACCOUNTANT Height - - Body Mass Index - [...] surgery, nose SOCIAL HISTORY He lives in [place], [place]. He lives at [address] [place] in an apartment. He is single. 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 He is mobile with [...] Photos were taken and are available in [email or web address] after obtaining consent. He has a 1.5 [...] We discussed the acute as well as truck terminal manager risks, including, but not limited to fatigue, [...] by: Bethany Natarajan M.D. 04/16/2020 4:52 PM COMMERCIAL ACCOUNTANT Radiation Oncology [facility] [place] [phone] ERCIAL ACCOUNTANT documented in this encounter Miscellaneous Notes Addendum Note - Mame Amezquita - 04/16/2020 1:00 PM COMMERCIAL ACCOUNTANT Encounter addended by: Mame Amezquita on: 04/17/2020 8:34 AM Actions taken: Letter saved ERCIAL ACCOUNTANT documented in this encounter Plan of Treatment Not on filedocumented as of this encounter Visit Diagnoses Diagnosis Malignant Neoplasm Of Lower Limb Basal C ell Carcinoma Left - Primary Malignant Neoplasm Of Lower Limb Basal C ell Carcinoma Right 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
--- OUTSIDE RECORDS SUMMARY | 2022-01-06 12:56 | XMS_ITS | Encounter Summary ---
:1940 Author Organization 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 [facility] Procedures Prior Auth Rad Tx [place] IMRT COMPLEX [address] [place] [address] Referral ID Status Reason Start Date Expiration Date Visits Requ ested Visits Authorized [id number] Closed 04/16/2020 04/16/2021 15 15 Encounter Details Date Type Department Care Team Description 04/25/2020 Hospital Encounter Department of Radiation Shaneka Natarajan I., [facility] [place] [address] [facility] [address] [place] [address] [phone] Social History Tobacco Use Types Packs/Day Years [...]
--- OUTSIDE RECORDS SUMMARY | 2022-01-06 12:56 | XMS_ITS | Encounter Summary ---
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 [facility] Procedures Management Visit [address] [place], [place] [address] Referral ID Status Reason Start Date Expiration Date Visits V isits Requested Authorized [id number] Canceled 04/10/2020 04/10/2021 5 5 Encounter Details Date Type Department Care Team Description 05/06/2020 Hospital Encounter Department of Garrison Casas Neoplasm Of Lower Limb Basal Cell Carcinoma Left; Radiation Oncology Corinne Cabello 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; in [address] Malignant Neoplasm Of Lower Limb Basal C ell Carcinoma Right [place], [place] [address] [facility] [address] [place], [place] [phone] [address] (Work) [phone] Social History Tobacco Use Types Packs/Day Years [...]
--- OUTSIDE RECORDS SUMMARY | 2022-01-06 12:56 | XMS_ITS | Encounter Summary ---
:1940 Author Organization [facility] Address [address] [place] [address] Care Team Providers Name Role Phone Unavailable Primary Care Provider Unavailable Encounter Details Date Type Department Care Team Description 02/12/2017 Hospital Encounter HX RST DERM SURG OP Avni Gaffney [facility] M.D. [address] [place] [address] (Wo rk) Social History Tobacco Use Types Packs/Day Years Used Date Smoking Tobacco: Never Assessed Sex Assigned at Date Recorded Not on file documented as of this encounter Last Filed Vital Signs Vital Sign Reading Time Taken Comments Blood Pressure 141/85 02/12/2017 8:05 AM PRESS TENDER STAR SIGNAL Vital sign result from Clinical Notes. Pulse 89 02/12/2017 8:05 AM PRESS TENDER STAR SIGNAL Vital sign result from Clinical Notes. Temperature [...]
--- OUTSIDE RECORDS SUMMARY | 2022-01-06 12:56 | XMS_ITS | Encounter Summary ---
:[address] 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 [facility] Procedures Prior Auth Rad Tx [place] IMRT COMPLEX [address] [place] [address] Referral ID Status Reason Start Date Expiration Date Visits Requ ested Visits Authorized [id number] Closed 04/16/2020 04/16/2021 15 15 Encounter Details Date Type Department Care Team Description 04/30/2020 Hospital Encounter Department of Radiation Shaneka Natarajan I., [facility] [place] [address] [facility] [address] [place] [address] [phone] Social History Tobacco Use Types Packs/Day Years [...]
--- OUTSIDE RECORDS SUMMARY | 2022-01-06 12:56 | XMS_ITS | Encounter Summary ---
:1940 Author Organization [facility] Address [address] [place] [address] Care Team Providers Name Role Phone Unavailable [...] Onc Treatment Planning CT Simulation [address] [place], [place] [address] Referral ID Status Reason Start Date Expiration Date Visits Requ ested Visits Authorized [id number] Closed 04/10/2020 04/10/2021 1 1 GER FILM Reason for Visit Radiation Therapy (Routine) - [...] Onc Treatment Planning CT Simulation [address] [place], [place] [address] Referral ID Status Reason Start Date Expiration Date Visits Requ ested Visits Authorized [id number] Closed 04/10/2020 04/10/2021 1 1 Encounter Details Date Type Department Care Team Description 04/16/2020 Hospital Encounter Department of Bethany Natarajan 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; in [place], [facility] Malignant Neoplasm Of Lower Limb Basal C ell Carcinoma Right [place], [place] [address] [facility] [address] [place], [place] [phone] (Work) [phone] Social History Tobacco Use Types Packs/Day Years [...] planning. CT images were transferred to the 77 Pieces treatment planning system, after a reference isocenter was determined and marked. Segmentation and treatment planning will take place priorto treatment delivery. Patient set up and imaging was appropriate and completed without incident. Insurance Application Investigator use:No GER FILM documented in this encounter Plan of Treatment Not on filedocumented as of this encounter Procedures Procedure Name Priority Date/Time Associated Comments Diagnosis INITIAL RAD ONC Routine 04/16/2020 2:00 PM Malignant Neoplasm Results for this TREATMENT PLANNING MANAGER FILM Of Lower Limb Basal pr ocedure are in CT SIMULATION Cell Carcinoma L eft the results Malignant Neoplasm section. 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 04/16/2020 ??4:02 PM [...]
--- OUTSIDE RECORDS SUMMARY | 2022-01-06 12:56 | XMS_ITS | Encounter Summary ---
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; in [place], [facility] Malignant Neoplasm Of Lower Limb Basal C ell Carcinoma Right [place], [place] [address] [facility] [address] [place], [place] [phone] (Work) [phone] Social History Tobacco Use Types Packs/Day Years Used Date Smoking Tobacco: Every Day Sex Assigned at Date Recorded Not on file documented as of this encounter Last Filed Vital Signs Vital Sign Reading Time Taken Comments Blood Pressure 156/86 04/26/2020 2:31 PM MARINE REPORTER Pulse 92 04/26/2020 2:31 PM MARINE REPORTER Temperature 36.9 ??C (98.5 ??F) 04/26/2020 2:31 PM MARINE REPORTER Respiratory Rate - - Oxygen Saturation - - Inhaled Oxygen Concentration - - Weight 95.5 kg (210 lb 8.6 oz) 04/26/2020 2:31 PM MARINE REPORTER Height - - Body Mass Index - [...] 700 1400 3500 04/24/2020 04/25/2020 1 F1_RTInguinal 175 282 8183 04/24/2020 04/25/2020 1 F1_LT Leg 667 553 5572 04/24/2020 04/25/2020 1 Course Summary 04/24/2020 04/25/2020 [...] by: Deedee Fry R.N. 04/26/2020 2:54 PM MARINE REPORTER ATTESTATION FOR MANAGEMENT VISIT I saw and evaluated the patient and participated in the gregory portions of the service as noted above. I reviewed the documentation of Ms. Deedee Fry RN and agree with the findings and plan. The patient appears well on exam. We will continue with radiation as planned and monitor weekly. Bethany Nataraajn M.D., 04/26/2020 NE REPORTER documented in this encounter Plan of Treatment [...]
--- OUTSIDE RECORDS SUMMARY | 2022-01-06 12:56 | XMS_ITS | Encounter Summary ---
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 [address] [place], [place] [phone] (Work) [phone] Social History Tobacco Use Types Packs/Day Years [...] I provided patient with Moist Skin Reaction [id number] pamphlet yesterday. I encouraged him to [...] Garrison Casas M.D. 05/07/2020 4:51 PM CDT [facility] Radiation Therapy Center [address] [place] [address] documented in this encounter Plan of Treatment [...]
--- OUTSIDE RECORDS SUMMARY | 2022-01-06 12:56 | XMS_ITS | Encounter Summary ---
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 [facility] Procedures Prior Auth Rad Tx [place] IMRT COMPLEX [address] [place] [address] Referral ID Status Reason Start Date Expiration Date Visits Requ ested Visits Authorized [id number] Closed 04/16/2020 04/16/2021 15 15 Encounter Details Date Type Department Care Team Description 05/13/2020 Hospital Encounter Department of Radiation Shaneka Natarajan I., [facility] [place] [address] [facility] [address] [place] [phone] [phone] Social History Tobacco Use Types Packs/Day Years [...]
--- OUTSIDE RECORDS SUMMARY | 2022-01-06 12:56 | XMS_ITS | Encounter Summary ---
:1940 Author Organization [facility] Address [address] [place] [address] Care Team Providers Name Role Phone Unavailable Primary Care Provider Unavailable Reason for Referral Specialty Diagnoses / Procedures Referred By Contact Refer red To Contact Bethany Natarajan M.D. [facility] Region [address] [place] [phone] Referral ID Status Reason Start Date Expiration Date Visits Requ ested Visits Authorized BASE PROGRAMMER ANALYST Encounter Details Date Type Department Care Team Description 04/30/2020 - Hospital Encounter Department of Aramis Natarajan M.D. [address] [place] [address] Malignant Neoplasm Of Lower Limb Basal C ell Carcinoma Left; 05/17/2020 Radiation Oncology Deedee Fry R.N. [address] [place] [phone] 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; in [place], Malignant Henry plasm Of Lower Limb Basal Cell Carcinoma Right [place] [address] [place] [address] Social History Tobacco Use Types [...]
--- OUTSIDE RECORDS SUMMARY | 2022-01-06 12:56 | XMS_ITS | Encounter Summary ---
:1940 Author Organization [facility] Address [address] [place] [address] Care Team Providers Name Role Phone Unavailable [...] 04/16/2020 1:28 PM Re sults for this ASSOCIATE SCIENTIST procedure are i n the results section. documented in this encounter Results Leg-Oncology Image Exam (04/16/2020 1:28 PM ASSOCIATE SCIENTIST) Specimen (Source) Anatomical Collection Method Collection Time Re ceived Time Location / / Volume Laterality 04/16/2020 1:25 PM ASSOCIATE SCIENTIST Narrative [facility] - 04/16/2020 1:28 PM ASSOCIATE SCIENTIST This order has been created and [...]
--- OUTSIDE RECORDS SUMMARY | 2022-01-06 12:56 | XMS_ITS | Encounter Summary ---
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 [facility] Procedures Prior Auth Rad Tx [place] IMRT COMPLEX [address] [place] [address] Referral ID Status Reason Start Date Expiration Date Visits Requ ested Visits Authorized [id number] Closed 04/16/2020 04/16/2021 15 15 Encounter Details Date Type Department Care Team Description 05/07/2020 Hospital Encounter Department of Radiation Shaneka Natarajan I., [facility] [place] [address] [place] [address] [place] [phone] [phone] Social History Tobacco Use Types Packs/Day Years [...]
--- OUTSIDE RECORDS SUMMARY | 2022-01-06 12:56 | XMS_ITS | Encounter Summary ---
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 [facility] Procedures Prior Auth Rad Tx [place] IMRT COMPLEX [address] [place] [address] Referral ID Status Reason Start Date Expiration Date Visits Requ ested Visits Authorized [id number] Closed 04/16/2020 04/16/2021 15 15 Encounter Details Date Type Department Care Team Description 05/06/2020 Hospital Encounter Department of Radiation Shaneka Natarajan I., [facility] [place] [address] [facility] [address] [place] [phone] [phone] Social History Tobacco Use Types Packs/Day Years [...]
--- OUTSIDE RECORDS SUMMARY | 2022-01-06 12:56 | XMS_ITS | Encounter Summary ---
:1940 Author Organization [facility] Address [address] [place] [address] Care Team Providers Name Role Phone Unavailable Primary Care Provider Unavailable Reason for Referral Outpatient (Routine) - Closed Specialty Diagnoses / Procedures Referred By Contact Refer red To Contact Diagnoses Swelling Testicle Garrison Casas M.D. 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 [facility] Region Procedures Management Visit [address] [place] [address] Referral ID Status Reason Start Date Expiration Date Visits V isits Requested Authorized [id number] Canceled 04/10/2020 04/10/2021 5 5 Encounter Details Date Type Department Care Team Description 05/08/2020 Hospital Encounter Department of Garrison Casas ing Testicle (Primary Dx); Radiation Oncology Corinne Cabello Malignant Neoplasm Of Lower Limb Basal C ell Carcinoma Left; in [place], [facility] [address] [facility] 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; [place], [place] Malignant Neoplasm Of Lower Limb Basal Cell Carcinoma Right [address] [facility] [address] [place], [place] [phone] (Work) [phone] Social History Tobacco Use Types Packs/Day Years [...] I have ordered a scrotal ultrasound at [facility]. The patient will continue with treatment as planned. Signed by: Garrison Casas M.D. 05/08/2020 2:54 PM CDT [facility] Radiation Therapy Center [address] [place] [address] documented in this encounter Plan of Treatment [...]
--- OUTSIDE RECORDS SUMMARY | 2022-01-06 12:56 | XMS_ITS | Encounter Summary ---
:1940 Author Organization [facility] Address [address] [place] [address] Care Team Providers Name Role Phone Unavailable [...] 04/16/2020 1:25 PM Re sults for this OAK TANNER procedure are i n the results section. documented in this encounter Results Pelvis-Oncology Image Exam (04/16/2020 1:25 PM OAK TANNER) Specimen (Source) Anatomical Collection Method Collection Time Re ceived Time Location / / Volume Laterality 04/16/2020 1:25 PM OAK TANNER Narrative [facility] - 04/16/2020 1:28 PM OAK TANNER This order has been created and auto-finalized [...]
--- OUTSIDE RECORDS SUMMARY | 2022-01-06 12:57 | XMS_ITS | Encounter Summary ---
:1940 Author Organization [facility] Address [address] [place] [address] Care Team Providers Name Role Phone Unavailable [...] 12:10 Result s for this EXAM PM PROCUREMENT OFFICER procedure are i n the results section. documented in this encounter Results DERMATOLOGY IMAGE EXAM (02/12/2017 12:10 PM PROCUREMENT OFFICER) Specimen (Source) Anatomical Collection Method Collection Time Re ceived Time Location / / Volume Laterality 02/12/2017 12:00 PM PROCUREMENT OFFICER Narrative [facility] - 02/12/2017 2:49 PM PROCUREMENT OFFICER This order has been created and [...]
--- OUTSIDE RECORDS SUMMARY | 2022-01-06 12:57 | XMS_ITS | Encounter Summary ---
:1940 Author Organization [facility] Address [address] [place] [address] Care Team Providers Name Role Phone Unavailable [...] 12:25 Result s for this EXAM PM ASSEMBLER BODY procedure are i n the results section. documented in this encounter Results DERMATOLOGY IMAGE EXAM (02/12/2017 12:25 PM ASSEMBLER BODY) Specimen (Source) Anatomical Collection Method Collection Time Re ceived Time Location / / Volume Laterality 02/12/2017 12:00 PM ASSEMBLER BODY Narrative [facility] - 02/12/2017 2:50 PM ASSEMBLER BODY This order has been created and auto-finalized [...]
--- OUTSIDE RECORDS SUMMARY | 2022-01-06 12:57 | XMS_ITS | Encounter Summary ---
:1940 Author Organization [facility] Address [address] [place] [address] Care Team Providers Name Role Phone Unavailable [...] 12:05 Result s for this EXAM PM CYTOLOGY MANAGER procedure are i n the results section. documented in this encounter Results DERMATOLOGY IMAGE EXAM (02/12/2017 12:05 PM CYTOLOGY MANAGER) Specimen (Source) Anatomical Collection Method Collection Time Re ceived Time Location / / Volume Laterality 02/12/2017 12:00 PM CYTOLOGY MANAGER Narrative [facility] - 02/12/2017 2:49 PM CYTOLOGY MANAGER This order has been created and [...]
--- OUTSIDE RECORDS SUMMARY | 2022-01-06 12:57 | XMS_ITS | Encounter Summary ---
:1940 Author Organization [facility] Address [address] [place] [address] Care Team Providers Name Role Phone Unavailable [...] 12:00 Result s for this EXAM PM BATCH ROLLER OPERATOR procedure are i n the results section. documented in this encounter Results DERMATOLOGY IMAGE EXAM (02/12/2017 12:00 PM BATCH ROLLER OPERATOR) Specimen (Source) Anatomical Collection Method Collection Time Re ceived Time Location / / Volume Laterality 02/12/2017 12:00 PM BATCH ROLLER OPERATOR Narrative [facility]IM[facility] - 02/12/2017 2:49 PM BATCH ROLLER OPERATOR This order has been created and [...]
--- OUTSIDE RECORDS SUMMARY | 2022-01-06 12:57 | XMS_ITS | Encounter Summary ---
:1940 Author Organization [facility] Address [address] [place] [address] Care Team Providers Name Role Phone Unavailable [...] 12:20 Result s for this EXAM PM CARE MANAGEMENT SPECIALIST procedure are i n the results section. documented in this encounter Results DERMATOLOGY IMAGE EXAM (02/12/2017 12:20 PM CARE MANAGEMENT SPECIALIST) Specimen (Source) Anatomical Collection Method Collection Time Re ceived Time Location / / Volume Laterality 02/12/2017 12:00 PM CARE MANAGEMENT SPECIALIST Narrative [facility]IM[facility] - 02/12/2017 2:49 PM CARE MANAGEMENT SPECIALIST This order has been created and [...]
--- OUTSIDE RECORDS SUMMARY | 2022-01-06 12:58 | XMS_ITS | Encounter Summary ---
:1940 Author Organization [facility] Address [address] [place] [address] Care Team Providers Name Role Phone Unavailable [...] 12:00 Result s for this EXAM PM V BELT BUILDER procedure are i n the results section. documented in this encounter Results DERMATOLOGY IMAGE EXAM (01/19/2017 12:00 PM V BELT BUILDER) Specimen (Source) Anatomical Location Collection Method / Collectio n Time Received Time / Laterality Volume Narrative [facility] - 01/19/2017 4:19 PM V BELT BUILDER This order has been created and auto-finalized [...]
== END 2022-01-06 12:55 | disposition home or self-care (01) ==
PROVIDERS: PCP Family Medicine; Visit Provider Nurse Practitioner Family
DX: L59.8 Other specified disorders of the skin and subcutaneous tissue related to radiation (principal)
CPT/HCPCS: 11042

== ENCOUNTER 2022-01-13 12:43 | Outpatient (CLI) | payer OTHER, SELFPAY ==
--- OUTSIDE RECORDS SUMMARY | 2022-01-13 12:45 | XMS_ITS | Encounter Summary ---
:1940 Author Organization [facility] Address [address] [place] [address] Care Team Providers Name Role Phone Unavailable Primary Care Provider Unavailable Reason for Referral Outpatient (Routine) - Closed Specialty Diagnoses / Procedures Referred By Contact Refer red To Contact Radiation Oncology Bethany Natarajan [facility] M.D. [address] [place] [address] Referral ID Status Reason Start Date Expiration Date Visits Requ ested Visits Authorized [id number] Closed 05/28/2020 05/28/2021 1 1 Scheduling Instructions 2-3 weeks with [facility] and Deedee Outpatient (Routine) - Closed Specialty Diagnoses / Procedures Referred By Contact Refer red To Contact Radiation Oncology Bethany Natarajan [facility] M.D. [address] [place] [address] Referral ID Status Reason Start Date Expiration Date Visits Requ ested Visits Authorized [id number] Closed 05/15/2020 05/15/2021 1 1 Scheduling Instructions Deedee first to assess skin Reason for Visit Outpatient (Routine) - Closed Specialty Diagnoses / Procedures Referred By Contact Refer red To Contact Radiation Oncology Bethany Natarajan [facility] M.D. 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 05/28/2020 1:16 PM CDT [facility] Radiation Therapy Center [address] [place] [address] ATTESTATION FOR FOLLOW-UP VISIT I saw and [...]
--- OUTSIDE RECORDS SUMMARY | 2022-01-13 12:45 | XMS_ITS ---
:1940 Author Organization [facility] Address [address] [place] [address] Care Team Providers Name Role Phone Unavailable [...] Elapsed Days Session Dose Total Dos e [id number] 05/15/2020 21 300 cGy 4,500 cGy [id number] 05/06/2020 12 425 cGy 3,825 cGy [id number] 04/26/2020 2 700 cGy 2,100 cGy
--- OUTSIDE RECORDS SUMMARY | 2022-01-13 12:45 | XMS_ITS | Clinical Summary ---
:1940 Author Organization [facility] Address [address] [place] [address] Care Team Providers Name Role Phone Unavailable Primary Care Provider Unavailable Source Comments Patient records contain information from all sites at [facility]. For routine questions regarding patient records, call [phone] during business hours, M-F 8:00 AM - 5:00 PM Central Time. Record requests for emergency care only can be directed to [phone] at any time.[facility] Allergies Active Allergy Reactions Severity Noted Date [...] Phone Addre ss Type Group [facility] [id number] 2021-Present [phone] [address] [place] [address]
--- OUTSIDE RECORDS SUMMARY | 2022-01-13 12:45 | XMS_ITS | Encounter Summary ---
:1940 Author Organization [facility] Address [address] [place] [address] Care Team Providers Name Role Phone Unavailable Primary Care Provider Unavailable Reason for Visit Reason Comments Med Refill Encounter Details Date Type Department Care Team Description 08/08/2020 Clinical Communication Department of Travis Hall Refjoanne [facility] [address] [place] [phone] Social History Tobacco Use Types Packs/Day Years Used Date Smoking Tobacco: Every Day Sex Assigned at Date Recorded Not on file documented as of this encounter Miscellaneous Notes Telephone Encounter - Deedee Fry R.N. - 08/08/2020 1:06 PM CDT Information Discussed I called and left voicemail on patient's phone requesting call back. Patient reported that he was taking [place] twice a day at his last in office visit with us. PLAN Dr. Natarajan and I will send through refill on Aurora to get him through until August 16, 2020, when he is scheduled for follow up with Dr. Natarajan in [place]. Disposition/Recommendation: I requested call back, refill will [...] can be done or not Phone number: [phone] Is it okay to leave a voicemail on answering machine with test results? Yes Pharmacy (if medication related): [facility] [address] [place] [address] Paula Hall documented in this encounter Plan of Treatment Not on filedocumented as of this encounter Visit Diagnoses Not on filedocumented in this encounter
--- OUTSIDE RECORDS SUMMARY | 2022-01-13 12:45 | XMS_ITS | Encounter Summary ---
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 [facility] Procedures Prior Auth Rad Tx [place] IMRT COMPLEX [address] [place] [address] Referral ID Status Reason Start Date Expiration Date Visits Requ ested Visits Authorized [id number] Closed 04/16/2020 04/16/2021 15 15 Encounter Details Date Type Department Care Team Description 05/13/2020 Hospital Encounter Department of Radiation Shaneka Natarajan I., [facility] [place] [address] [facility] [address] [place] [phone] [phone] Social History Tobacco Use Types Packs/Day Years [...]
--- OUTSIDE RECORDS SUMMARY | 2022-01-13 12:45 | XMS_ITS | Encounter Summary ---
:1940 Author Organization [facility] Address [address] [place] [address] Care Team Providers Name Role Phone Unavailable Primary Care Provider Unavailable Reason for Referral Outpatient (Routine) - Closed Specialty Diagnoses / Procedures Referred By Contact Refer red To Contact Radiation Oncology Bethany Natarajan [facility] Jason Sun [address] [place] [address] Referral ID Status Reason Start Date Expiration Date Visits Requ ested Visits Authorized [id number] Closed 05/15/2020 05/15/2021 1 1 Scheduling Instructions [...] [facility] Procedures Management [facility] [address] [place], [place] [address] Referral ID Status Reason Start Date Expiration Date Visits V isits Requested Authorized [id number] Canceled 04/10/2020 04/10/2021 5 5 Reason for [...] CENTER Region Procedures Management Visit [address] [place] [address] Referral ID Status Reason Start Date Expiration Date Visits V isits Requested Authorized [id number] Canceled 04/10/2020 04/10/2021 5 5 Encounter Details Date Type Department Care Team Description 05/15/2020 Hospital Encounter Department of Bethany Natarajan 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 Natarajna. Patient reports that he was taking 1 [...] 2020 to complete skin assessment. Radiation Oncology [place] can be contacted at anytime for any questions or concerns. Patient stated a full understanding to the plan of care discussed today. Toxicities reviewed with Dr. Natarajan today. Signed by: Deedee Fry R.N. 05/15/2020 2:59 PM CDT [facility] [address] [place] [address] documented in this encounter Plan of Treatment [...]
--- OUTSIDE RECORDS SUMMARY | 2022-01-13 12:45 | XMS_ITS | Encounter Summary ---
:1940 Author Organization [facility] Address [address] [place] [address] Care Team Providers Name Role Phone Unavailable Primary Care Provider Unavailable Encounter Details Date Type Department Care Team Description 07/10/2020 Clinical Communication Department of Bethany Natarajan Radiation Oncology in [place] Adhikari [facility] [address] [facility] [address] [place] [phone] Social History Tobacco Use Types Packs/Day Years [...] informed him that a prescription for the [place] has been sent to the [facility] in [place]. Phone number: [phone] Is it okay to leave a voicemail on answering machine with test results? Yes Pharmacy (if medication related): N/A lEif Parkinson documented in this encounter Plan of Treatment Not on filedocumented as of this encounter Visit Diagnoses Not on filedocumented in this encounter
--- OUTSIDE RECORDS SUMMARY | 2022-01-13 12:45 | XMS_ITS | Encounter Summary ---
:1940 Author Organization [facility] Address [address] [place] [address] Care Team Providers Name Role Phone Unavailable Primary Care Provider Unavailable Reason for Referral Specialty Diagnoses / Procedures Referred By Contact Refer red To Contact Bethany Natarajan M.D. [facility] Region [address] [place] [phone] Referral ID Status Reason Start Date Expiration Date Visits Requ ested Visits Authorized RUCTION ASSISTANT PRINCIPAL Encounter Details Date Type Department Care Team Description 04/30/2020 - Hospital Encounter Department of Aramis Natarajan M.D. [address] [place] [phone] Malignant Neoplasm Of Lower Limb Basal C ell Carcinoma Left; 05/17/2020 Radiation Oncology Deedee Fry R.N. 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
--- OUTSIDE RECORDS SUMMARY | 2022-01-13 12:45 | XMS_ITS | Encounter Summary ---
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 [facility] Procedures Prior Auth Rad Tx [place] IMRT COMPLEX [address] [place] [address] Referral ID Status Reason Start Date Expiration Date Visits Requ ested Visits Authorized [id number] Closed 04/16/2020 04/16/2021 15 15 Encounter Details Date Type Department Care Team Description 05/09/2020 Hospital Encounter Department of Radiation Shaneka Natarajan I., [facility] [place] [address] [facility] [address] [place] [phone] [phone] Social History Tobacco Use Types Packs/Day Years [...]
--- OUTSIDE RECORDS SUMMARY | 2022-01-13 12:45 | XMS_ITS | Encounter Summary ---
:1940 Author Organization [facility] Address [address] [place] [address] Care Team Providers Name Role Phone Unavailable Primary Care Provider Unavailable Encounter Details Date Type Department Care Team Description 05/15/2020 Hospital Encounter Department of Radiation Shankea Natarajan I., Oncology in [facility] [address] [facility] [address] [place] [address] [phone] Social History Tobacco Use Types Packs/Day Years [...]
--- OUTSIDE RECORDS SUMMARY | 2022-01-13 12:45 | XMS_ITS | Clinical Summary ---
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 MA 05/02/2009 Overview: Per preop, EF of 39% [...] Comments Blood Pressure 123/73 04/16/2014 2:19 PM CEREAL CHEMIST Pulse 115 04/16/2014 2:19 PM CEREAL CHEMIST Temperature 38.3 ??C (100.9 ??F) 04/16/2014 3:30 PM CEREAL CHEMIST Respiratory Rate 20 04/16/2014 2:19 PM CEREAL CHEMIST Oxygen Saturation 94% 04/16/2014 2:19 PM CEREAL CHEMIST Inhaled Oxygen Concentration - - Weight 86.1 kg (189 lb 13.1 oz) 04/16/2014 5:00 AM CEREAL CHEMIST Height 180.3 cm (5' 10.98) 04/02/2014 12:00 AM CEREAL CHEMIST Body Mass Index 26.49 04/02/2014 12:00 AM CEREAL CHEMIST Plan of Treatment Health Maintenance Due Date [...] 65+ 10/23/2021 Medical Devices Implanted Type Area Academic Support Center Director Device Shelf Model / Identifier Expiration Serial / Date Lot Screw Self Drilling 3.5x15mm - [id number] N/A: Spine SOFAMOR [id number] [id number] / Implanted: Qty: 4 on 06/24/[address] [facility] / Humeral Tray Left: [id number] / Implanted: Qty: 1 on 03/17/[address] [facility] Shoulder / [id number] Description: HUMERAL TRAY Explanted Type Area Academic Support Center Director Device Shelf Model / Identifier Expiration Serial / Date Lot Patch Vasc 0.8x8cm Xenosure Biological Pericardial - [id number] Right: Lemaitre 0.8P8# / Explanted: Qty: 1 on 03/09/[address] [facility] [employer] / [id number] Results Not on filefrom Last 3 Months Insurance Payer Benefit Plan / Subscriber ID Effective Dates Phone Addre ss Type Group [facility] [id number] 2015-Present [address] [place] [address] Guarantor Name Account Type Relation to Date of Phone Bill ing Patient Address Tl Lugo Personal/Family Self 1940 [phone] (Home) [place] [address] Advance Directives Documents on File Type Date Recorded Patient Counsel Explanati on Healthcare Directive 05/12/2009 Healthcare Directive 06/26/2010 Latest Code Status on File Code Status Date Activated Date Inactivated Comments Full Code 04/16/2014 2:21 PM Full Code 03/07/2014 8:16 PM 04/16/2014 2:21 PM Full Code 03/07/2014 12:01 PM 03/07/2014 8:16 PM Full Code 02/28/2014 6:12 AM 02/28/2014 11:11 PM Full Code 03/17/2012 12:44 PM 03/19/2012 4:35 [address] Inspector Relationship Specialty Start Date End Date Alfredo Starr MD PCP - General 11/13/08
--- OUTSIDE RECORDS SUMMARY | 2022-01-13 12:45 | XMS_ITS | Encounter Summary ---
:[address] [facility] Address [address] [place] [address] Care Team Providers Name Role Phone Unavailable Primary Care Provider Unavailable Reason for Visit Reason Comments Follow-up Encounter Details Date Type Department Care Team Description 10/30/2020 Clinical Communication Department of Bethany Natarajanzuhair Radiation Oncology in [place] Adhikari [facility] [address] [facility] [address] [place] [phone] Social History Tobacco Use Types Packs/Day Years [...] center to help with this. Phone number: [phone] Is it okay to leave a voicemail on answering machine with test results? No Pharmacy (if medication related): N/A Elif Parkinson documented in this encounter Plan of Treatment Not on filedocumented as of this encounter Visit Diagnoses Not on filedocumented in this encounter
--- OUTSIDE RECORDS SUMMARY | 2022-01-13 12:45 | XMS_ITS | Encounter Summary ---
:1940 Author Organization [facility] Address [address] [place] [address] Care Team Providers Name Role Phone Unavailable Primary Care Provider Unavailable Encounter Details Date Type Department Care Team Description 11/01/2020 Orders Only [facility] PCP TH Sa greyson Moore M.D. [address] [place], [place] [phone] (Wo rk) Social History Tobacco Use Types Packs/Day Years Used Date Smoking Tobacco: Every Day Sex Assigned at Date Recorded Not on file documented as of this encounter Plan of Treatment Not on filedocumented as of this encounter Visit Diagnoses Not on filedocumented in this encounter
--- OUTSIDE RECORDS SUMMARY | 2022-01-13 12:45 | XMS_ITS | Encounter Summary ---
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 [facility] Procedures Prior Auth Rad Tx [place] IMRT COMPLEX [address] [place] [address] Referral ID Status Reason Start Date Expiration Date Visits Requ ested Visits Authorized [id number] Closed 04/16/2020 04/16/2021 15 15 Encounter Details Date Type Department Care Team Description 05/14/2020 Hospital Encounter Department of Radiation Shaneka Natarajan I[facility] [place] [address] [facility] [address] [place] [phone] [phone] Social History Tobacco Use Types Packs/Day Years [...]
--- OUTSIDE RECORDS SUMMARY | 2022-01-13 12:45 | XMS_ITS | Encounter Summary ---
:1940 Author Organization [facility] Address [address] [place] [address] Care Team Providers Name Role Phone Unavailable Primary Care Provider Unavailable Encounter Details Date Type Department Care Team Description 09/27/2020 Clinical Communication Department of Bethany Natarajan Radiation Oncology in [place] Adhikari [facility] [address] [facility] [address] [place] [phone] Social History Tobacco Use Types Packs/Day Years [...]
--- OUTSIDE RECORDS SUMMARY | 2022-01-13 12:46 | XMS_ITS | Encounter Summary ---
:1940 Author Organization [facility] Address [address] [place] [address] Care Team Providers Name Role Phone Unavailable [...] 12:30 Result s for this EXAM PM CARE MANAGEMENT ASSOCIATE procedure are i n the results section. documented in this encounter Results DERMATOLOGY IMAGE EXAM (02/12/2017 12:30 PM CARE MANAGEMENT ASSOCIATE) Specimen (Source) Anatomical Collection Method Collection Time Re ceived Time Location / / Volume Laterality 02/12/2017 12:00 PM CARE MANAGEMENT ASSOCIATE Narrative [facility] - 02/12/2017 2:50 PM CARE MANAGEMENT ASSOCIATE This order has been created and auto-finalized to support the import of images acquired without order. The clini arash documentation to support these images can be found on the encounter monkia t produced images. Provider Not In System IMG NON RAD IMAGING PROCEDUR ES Performing Organization Address City/State/ZIP Code Phon e Number I[facility] NA documented in this encounter Visit Diagnoses Not on filedocumented in this encounter
--- OUTSIDE RECORDS SUMMARY | 2022-01-13 12:46 | XMS_ITS | Encounter Summary ---
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 [facility] Procedures Prior Auth Rad Tx [place] IMRT COMPLEX [address] [place] [address] Referral ID Status Reason Start Date Expiration Date Visits Requ ested Visits Authorized [id number] Closed 04/16/2020 04/16/2021 15 15 Encounter Details Date Type Department Care Team Description 05/03/2020 Hospital Encounter Department of Radiation Shaneka Natarajan I., [facility] [place] [address] [facility] [address] [place] [phone] [phone] Social History Tobacco Use Types Packs/Day Years [...]
--- OUTSIDE RECORDS SUMMARY | 2022-01-13 12:46 | XMS_ITS | Encounter Summary ---
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 [facility] Procedures Prior Auth Rad Tx [place] IMRT COMPLEX [address] [place] [address] Referral ID Status Reason Start Date Expiration Date Visits Requ ested Visits Authorized [id number] Closed 04/16/2020 04/16/2021 15 15 Encounter Details Date Type Department Care Team Description 05/08/2020 Hospital Encounter Department of Radiation Shaneka N[facility]ajna I., [facility] [place] [address] [facility] [address] [place] [phone] [phone] Social History Tobacco Use Types Packs/Day Years [...]
--- OUTSIDE RECORDS SUMMARY | 2022-01-13 12:46 | XMS_ITS | Encounter Summary ---
:1940 Author Organization [facility] Address [address] [place] [address] Care Team Providers Name Role Phone Unavailable Primary Care Provider Unavailable Encounter Details Date Type Department Care Team Description 02/12/2017 Hospital Encounter HX RST DERM SURG OP Avni Gaffney [facility] M.D. [address] [place] [address] (Wo rk) Social History Tobacco Use Types Packs/Day Years Used Date Smoking Tobacco: Never Assessed Sex Assigned at Date Recorded Not on file documented as of this encounter Last Filed Vital Signs Vital Sign Reading Time Taken Comments Blood Pressure 141/85 02/12/2017 8:05 AM TRUCK HOP Vital sign result from Clinical Notes. Pulse 89 02/12/2017 8:05 AM TRUCK HOP Vital sign result from Clinical Notes. Temperature [...]
--- OUTSIDE RECORDS SUMMARY | 2022-01-13 12:46 | XMS_ITS | Encounter Summary ---
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 [facility] Procedures Prior Auth Rad Tx [place] IMRT COMPLEX [address] [place] [address] Referral ID Status Reason Start Date Expiration Date Visits Requ ested Visits Authorized [id number] Closed 04/16/2020 04/16/2021 15 15 Encounter Details Date Type Department Care Team Description 04/25/2020 Hospital Encounter Department of Radiation Shaneka Natarajan I., [facility] [place] [address] [facility] [address] [place] [phone] [phone] Social History Tobacco Use Types Packs/Day Years [...]
--- OUTSIDE RECORDS SUMMARY | 2022-01-13 12:46 | XMS_ITS | Encounter Summary ---
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 [facility] Procedures Prior Auth Rad Tx [place] IMRT COMPLEX [address] [place] [address] Referral ID Status Reason Start Date Expiration Date Visits Requ ested Visits Authorized [id number] Closed 04/16/2020 04/16/2021 15 15 Encounter Details Date Type Department Care Team Description 04/24/2020 Hospital Encounter Department of Radiation Shaneka Natarajan I., [facility] [place] [address] [facility] [address] [place] [phone] [phone] Social History Tobacco Use Types Packs/Day Years [...]
--- OUTSIDE RECORDS SUMMARY | 2022-01-13 12:46 | XMS_ITS | Encounter Summary ---
:1940 Author Organization [facility] Address [address] [place] [address] Care Team Providers Name Role Phone Unavailable [...] Onc Treatment Planning CT Simulation [address] [place], [place] [address] Referral ID Status Reason Start Date Expiration Date Visits Requ ested Visits Authorized [id number] Closed 04/10/2020 04/10/2021 1 1 ORGAN MECHANIC APPRENTICE Reason for Visit Radiation Therapy (Routine) - [...] Onc Treatment Planning CT Simulation [address] [place], [place] [address] Referral ID Status Reason Start Date Expiration Date Visits Requ ested Visits Authorized [id number] Closed 04/10/2020 04/10/2021 1 1 Encounter Details Date Type Department Care Team Description 04/16/2020 Hospital Encounter Department of Bethany Natarajan 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 CT images were transferred to the 55social treatment planning system, after a reference isocenter was determined and marked. Segmentation and treatment planning will take place priorto treatment delivery. Patient set up and imaging was appropriate and completed without incident. Agricultural Crop Farm Manager use:No ORGAN MECHANIC APPRENTICE documented in this encounter Plan of Treatment Not on filedocumented as of this encounter Procedures Procedure Name Priority Date/Time Associated Comments Diagnosis INITIAL RAD ONC Routine 04/16/2020 2:00 PM Malignant Neoplasm Results for this TREATMENT PLANNING PIPE ORGAN MECHANIC APPRENTICE Of Lower Limb Basal pr ocedure are in CT SIMULATION Cell Carcinoma L eft the results Malignant Neoplasm section. 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 04/16/2020 ??4:02 PM Initial Rad Onc Treatment Planning CT Si mulation Date/Time: 04/16/2020 3:57 PM Performed by: Bethany Natarajan M.D. Authorized by: Bethany Natarajan M.D. Bethany Natarajan M.D. 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
--- OUTSIDE RECORDS SUMMARY | 2022-01-13 12:46 | XMS_ITS | Encounter Summary ---
:1940 Author Organization [facility] Address [address] [place] [address] Care Team Providers Name Role Phone Unavailable [...] 04/16/2020 1:28 PM Re sults for this HOUSEKEEPING ROOM ATTENDANT procedure are i n the results section. documented in this encounter Results Leg-Oncology Image Exam (04/16/2020 1:28 PM HOUSEKEEPING ROOM ATTENDANT) Specimen (Source) Anatomical Collection Method Collection Time Re ceived Time Location / / Volume Laterality 04/16/2020 1:25 PM HOUSEKEEPING ROOM ATTENDANT Narrative [facility] - 04/16/2020 1:28 PM HOUSEKEEPING ROOM ATTENDANT This order has been created and auto-finalized [...]
--- OUTSIDE RECORDS SUMMARY | 2022-01-13 12:46 | XMS_ITS | Encounter Summary ---
:1940 Author Organization [facility] Address [address] [place] [address] Care Team Providers Name Role Phone Unavailable [...] 04/16/2020 1:28 PM Re sults for this DIRECTOR OF TRANSPORTATION procedure are i n the results section. documented in this encounter Results Leg-Oncology Image Exam (04/16/2020 1:28 PM DIRECTOR OF TRANSPORTATION) Specimen (Source) Anatomical Collection Method Collection Time Re ceived Time Location / / Volume Laterality 04/16/2020 1:25 PM DIRECTOR OF TRANSPORTATION Narrative [facility] - 04/16/2020 1:28 PM DIRECTOR OF TRANSPORTATION This order has been created and auto-finalized [...]
--- OUTSIDE RECORDS SUMMARY | 2022-01-13 12:46 | XMS_ITS | Encounter Summary ---
:1940 Author Organization [facility] Address [address] [place] [address] Care Team Providers Name Role Phone Unavailable [...] 12:00 Result s for this EXAM PM MICROARRAY OPERATIONS VICE PRESIDENT procedure are i n the results section. documented in this encounter Results DERMATOLOGY IMAGE EXAM (02/12/2017 12:00 PM MICROARRAY OPERATIONS VICE PRESIDENT) Specimen (Source) Anatomical Collection Method Collection Time Re ceived Time Location / / Volume Laterality 02/12/2017 12:00 PM MICROARRAY OPERATIONS VICE PRESIDENT Narrative [facility] - 02/12/2017 2:49 PM MICROARRAY OPERATIONS VICE PRESIDENT This order has been created and auto-finalized [...]
--- OUTSIDE RECORDS SUMMARY | 2022-01-13 12:46 | XMS_ITS | Encounter Summary ---
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
--- OUTSIDE RECORDS SUMMARY | 2022-01-13 12:46 | XMS_ITS | Encounter Summary ---
:[address] 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 I encouraged him to [...] Garrison Casas M.D. 05/07/2020 4:[address] [facility] [address] [place] [address] documented in this encounter Plan of Treatment [...]
--- OUTSIDE RECORDS SUMMARY | 2022-01-13 12:46 | XMS_ITS | Encounter Summary ---
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 [facility] Procedures Prior Auth Rad Tx [place] IMRT COMPLEX [address] [place] [address] Referral ID Status Reason Start Date Expiration Date Visits Requ ested Visits Authorized [id number] Closed 04/16/2020 04/16/2021 15 15 Encounter Details Date Type Department Care Team Description 05/01/2020 Hospital Encounter Department of Radiation Shaneka Natarajan I., [facility] [place] [address] [facility] [address] [place] [phone] [phone] Social History Tobacco Use Types Packs/Day Years [...]
--- OUTSIDE RECORDS SUMMARY | 2022-01-13 12:46 | XMS_ITS | Encounter Summary ---
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 [facility] Procedures Prior Auth Rad Tx [place] IMRT COMPLEX [address] [place] [address] Referral ID Status Reason Start Date Expiration Date Visits Requ ested Visits Authorized [id number] Closed 04/16/2020 04/16/2021 15 15 Encounter Details Date Type Department Care Team Description 05/02/2020 Hospital Encounter Department of Radiation Shaneka Natarajan I., [facility] [place] [address] [facility] [address] [place] [phone] [phone] Social History Tobacco Use Types Packs/Day Years [...]
--- OUTSIDE RECORDS SUMMARY | 2022-01-13 12:46 | XMS_ITS | Encounter Summary ---
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 [facility] Procedures Prior Auth Rad Tx [place] IMRT COMPLEX [address] [place] [address] Referral ID Status Reason Start Date Expiration Date Visits Requ ested Visits Authorized [id number] Closed 04/16/2020 04/16/2021 15 15 Encounter Details Date Type Department Care Team Description 05/07/2020 Hospital Encounter Department of Radiation Shaneka Natarajan I., [facility] [place] [address] [facility] [address] [place] [phone] [phone] Social History Tobacco Use Types Packs/Day Years [...]
--- OUTSIDE RECORDS SUMMARY | 2022-01-13 12:46 | XMS_ITS | Encounter Summary ---
:1940 Author Organization [facility] Address [address] [place] [address] Care Team Providers Name Role Phone Unavailable [...] 12:15 Result s for this EXAM PM SOCIAL MEDIA COMMUNITY MANAGER procedure are i n the results section. documented in this encounter Results DERMATOLOGY IMAGE EXAM (02/12/2017 12:15 PM SOCIAL MEDIA COMMUNITY MANAGER) Specimen (Source) Anatomical Collection Method Collection Time Re ceived Time Location / / Volume Laterality 02/12/2017 12:00 PM SOCIAL MEDIA COMMUNITY MANAGER Narrative [facility] - 02/12/2017 2:49 PM SOCIAL MEDIA COMMUNITY MANAGER This order has been created and [...]
--- OUTSIDE RECORDS SUMMARY | 2022-01-13 12:46 | XMS_ITS | Encounter Summary ---
:1940 Author Organization [facility] Address [address] [place] [address] Care Team Providers Name Role Phone Unavailable Primary Care Provider Unavailable Reason for Referral Specialty Diagnoses / Procedures Referred By Contact Refer red To Contact Bethany Natarajan M.D. 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 04/16/2020 ??4:02 PM Initial Rad Onc Treatment Planning CT Si mulation Date/Time: 04/16/2020 3:57 PM Performed by: Bethany Natarajan M.D. Authorized by: Bethany Natarajan M.D. Bethany Natarajan M.D. RADIATION ONCOLOGY ORDERABLE S Performing Organization Address City/State/ZIP Code Phon e Number [place] documented in this encounter Visit Diagnoses [...]
--- OUTSIDE RECORDS SUMMARY | 2022-01-13 12:46 | XMS_ITS | Encounter Summary ---
:1940 Author Organization [facility] Address [address] [place] [address] Care Team Providers Name Role Phone Unavailable [...] 12:05 Result s for this EXAM PM CHIEF OF SAFETY AND PROTECTION procedure are i n the results section. documented in this encounter Results DERMATOLOGY IMAGE EXAM (02/12/2017 12:05 PM CHIEF OF SAFETY AND PROTECTION) Specimen (Source) Anatomical Collection Method Collection Time Re ceived Time Location / / Volume Laterality 02/12/2017 12:00 PM CHIEF OF SAFETY AND PROTECTION Narrative [facility] - 02/12/2017 2:49 PM CHIEF OF SAFETY AND PROTECTION This order has been created and auto-finalized [...]
--- OUTSIDE RECORDS SUMMARY | 2022-01-13 12:46 | XMS_ITS | Encounter Summary ---
:1940 Author Organization [facility] Address [address] [place] [address] Care Team Providers Name Role Phone Unavailable Primary Care Provider Unavailable Reason for Visit Reason Comments Lab Monitoring Encounter Details Date Type Department Care Team Description 04/19/2020 Documentation Department of Radiation Deedee Fry, Lab Monitoring Oncology in [facility] [address] [facility] [address] [place] [phone] (Wo rk) Social History Tobacco Use Types Packs/Day Years Used Date Smoking Tobacco: Every Day Sex Assigned at Date Recorded Not on file documented as of this encounter Progress Notes Deedee Fry RJhonN. - 04/19/2020 10:39 AM CST Lab result entered in EL TRUCK TECHNICIAN documented in this encounter Plan of Treatment Not on filedocumented as of this encounter Procedures Procedure Name Priority Date/Time Associated Diagnosis Comme nts LABEXT SARS Routine 04/17/2020 12:00 AM Results for this CORONAVIRUS-2 DIESEL TRUCK TECHNICIAN procedure are in (COVID-19) RNA the results section. documented in this encounter Results EXT SARS Coronavirus-2 (COVID-19) RNA (04/17/2020 12:00 AM DIESEL TRUCK TECHNICIAN) [employer] Method Time Signature EXT Undetected Inconclus [facility] SARS-CoV-2 sylvia, LABORATORIES - RNA Indetermi [facility] elías, CAMPUS Invalid, Negative, Not Detected, Undetecte d, Other (specify in comment) Specimen (Source) Anatomical Location Collection Method / Collectio n Time Received Time / Laterality Volume Swab 04/17/2020 Bethany Natarajan M.D. LAB MICROBIOLOGY - GENERAL O RDERABLES Performing Organization Address City/State/ZIP Code Phon e Number [facility]IES - [address] [place] [address] [facility] documented in this encounter Visit Diagnoses Not on filedocumented in this encounter
--- OUTSIDE RECORDS SUMMARY | 2022-01-13 12:46 | XMS_ITS | Encounter Summary ---
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9 ??C (98.5 ??F) 04/26/2020 2:31 PM TOBACCO SWEEPER Respiratory Rate - - Oxygen Saturation - - Inhaled Oxygen Concentration - - Weight 95.5 kg (210 lb 8.6 oz) 04/26/2020 2:31 PM TOBACCO SWEEPER Height - - Body Mass Index - [...] 700 1400 3500 04/24/2020 04/25/2020 1 F1_RTInguinal 546 945 5317 04/24/2020 04/25/2020 1 F1_LT Leg 151 039 8365 04/24/2020 04/25/2020 1 Course Summary 04/24/2020 04/25/2020 [...] by: Deedee Fry R.N. 04/26/2020 2:54 PM TOBACCO SWEEPER ATTESTATION FOR MANAGEMENT VISIT I saw and evaluated the patient and participated in the gregory portions of the service as noted above. I reviewed the documentation of Ms. Deedee Fry RN and agree with the findings and plan. The patient appears well on exam. We will continue with radiation as planned and monitor weekly. Bethany Natarajan M.D., 04/26/2020 CCO SWEEPER documented in this encounter Plan of Treatment [...]
--- OUTSIDE RECORDS SUMMARY | 2022-01-13 12:46 | XMS_ITS | Encounter Summary ---
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 [facility] Procedures Prior Auth Rad Tx [place] IMRT COMPLEX [address] [place] [address] Referral ID Status Reason Start Date Expiration Date Visits Requ ested Visits Authorized [id number] Closed 04/16/2020 04/16/2021 15 15 Encounter Details Date Type Department Care Team Description 04/30/2020 Hospital Encounter Department of Radiation Shaneka Natarajan I., [facility] [place] [address] [facility] [address] [place] [phone] [phone] Social History Tobacco Use Types Packs/Day Years [...]
--- OUTSIDE RECORDS SUMMARY | 2022-01-13 12:46 | XMS_ITS | Encounter Summary ---
:1940 Author Organization [facility] Address [address] [place] [address] Care Team Providers Name Role Phone Unavailable [...] 12:35 Result s for this EXAM PM AGRICULTURAL PRODUCE SORTER procedure are i n the results section. documented in this encounter Results DERMATOLOGY IMAGE EXAM (02/12/2017 12:35 PM AGRICULTURAL PRODUCE SORTER) Specimen (Source) Anatomical Collection Method Collection Time Re ceived Time Location / / Volume Laterality 02/12/2017 12:00 PM AGRICULTURAL PRODUCE SORTER Narrative [facility] - 02/12/2017 2:50 PM AGRICULTURAL PRODUCE SORTER This order has been created and [...]
--- OUTSIDE RECORDS SUMMARY | 2022-01-13 12:46 | XMS_ITS | Encounter Summary ---
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 [facility] Procedures Prior Auth Rad Tx [place] IMRT COMPLEX [address] [place] [address] Referral ID Status Reason Start Date Expiration Date Visits Requ ested Visits Authorized [id number] Closed 04/16/2020 04/16/2021 15 15 Encounter Details Date Type Department Care Team Description 05/06/2020 Hospital Encounter Department of Radiation Shaneka Natarajan I., [facility] [place] [address] [facility] [address] [place] [phone] [phone] Social History Tobacco Use Types Packs/Day Years [...]
--- OUTSIDE RECORDS SUMMARY | 2022-01-13 12:46 | XMS_ITS | Encounter Summary ---
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 [facility] Procedures Prior Auth Rad Tx CT IMRT COMPLEX [address] [place] [address] Referral ID Status Reason Start Date Expiration Date Visits Requ ested Visits Authorized [id number] Closed 04/16/2020 04/16/2021 15 15 Encounter Details Date Type Department Care Team Description 04/26/2020 Hospital Encounter Department of Radiation Shaneka Natarajan I., [facility] [place] [address] [facility] [address] [place] [phone] [phone] Social History Tobacco Use Types Packs/Day Years [...]
--- OUTSIDE RECORDS SUMMARY | 2022-01-13 12:46 | XMS_ITS | Encounter Summary ---
:1940 Author Organization [facility] Address [address] [place] [address] Care Team Providers Name Role Phone Unavailable [...] 12:20 Result s for this EXAM PM TEMPERING KILN TENDER procedure are i n the results section. documented in this encounter Results DERMATOLOGY IMAGE EXAM (02/12/2017 12:20 PM TEMPERING KILN TENDER) Specimen (Source) Anatomical Collection Method Collection Time Re ceived Time Location / / Volume Laterality 02/12/2017 12:00 PM TEMPERING KILN TENDER Narrative IIMS - 02/12/2017 2:49 PM TEMPERING KILN TENDER This order has been created and [...]
--- OUTSIDE RECORDS SUMMARY | 2022-01-13 12:46 | XMS_ITS | Encounter Summary ---
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 [facility] Procedures Prior Auth Rad Tx [place] IMRT COMPLEX [address] [place], [place] [phone] Referral ID Status Reason Start Date Expiration Date Visits Requ ested Visits Authorized [id number] Closed 04/16/2020 04/16/2021 15 15 UCT SUPPORT CONSULTANT Encounter Details Date Type Department Care Team Description 04/16/2020 Orders Only Department of Bethany Natarajan N eoplasm Of Radiation Oncology in [place]inne Adhikari Lower Limb Squamous [place] [address] [facility] Cell Carcinoma Left [address] [place], [place] (Primary Dx) [place] [phone] Social History Tobacco Use Types Packs/Day Years [...]
--- OUTSIDE RECORDS SUMMARY | 2022-01-13 12:46 | XMS_ITS | Encounter Summary ---
:[address] 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 [address] [place] [address] Referral ID Status Reason Start Date Expiration Date Visits Requ ested Visits Authorized [id number] Closed 03/08/2020 03/08/2021 1 1 Encounter Details Date Type Department Care Team Description 04/16/2020 Hospital Encounter Department of Bethany Natarajan Neoplasm Of Lower Limb Basal Cell Carcinoma Left (Primary Dx); Radiation Oncology Corinne Adhikari Malignant Neoplasm Of Lower Limb Basal C ell Carcinoma Right; in [place], [address] [place] [address] 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 [place], [place] [address] [facility] [address] [place], [place] [phone] (Work) [phone] Social History Tobacco Use Types Packs/Day Years Used Date Smoking Tobacco: Every Day Sex Assigned at Date Recorded Not on file documented as of this encounter Last Filed Vital Signs Vital Sign Reading Time Taken Comments Blood Pressure 124/76 04/16/2020 12:50 PM SHIP'S SURVEYOR Pulse 93 04/16/2020 12:50 PM SHIP'S SURVEYOR Temperature 37.2 ??C (99 ??F) 04/16/2020 12:50 PM SHIP'S SURVEYOR Respiratory Rate - - Oxygen Saturation - - Inhaled Oxygen Concentration - - Weight 95.5 kg (210 lb 8.6 oz) 04/16/2020 12:50 PM SHIP'S SURVEYOR Height - - Body Mass Index - [...] surgery, nose SOCIAL HISTORY He lives in [place], [place]. He lives at [address] in an apartment. He is single. 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 He is mobile with [...] Photos were taken and are available in [employer] after obtaining consent. He has a 1.5 [...] We discussed the acute as well as high school coordinator risks, including, but not limited to fatigue, [...] by: Bethany Natarajan M.D. 04/16/2020 4:52 PM SHIP'S SURVEYOR Radiation Oncology [facility] Radiation Therapy Center [facility] [place] [id number] 'S SURVEYOR documented in this encounter Miscellaneous Notes Addendum Note - Mame Amezquita - 04/16/2020 1:00 PM SHIP'S SURVEYOR Encounter addended by: Mame Amezquita on: 04/17/2020 8:34 AM Actions taken: Letter saved 'S SURVEYOR documented in this encounter Plan of Treatment Not on filedocumented as of this encounter Visit Diagnoses Diagnosis Malignant Neoplasm Of Lower Limb Basal C ell Carcinoma Left - Primary Malignant Neoplasm Of Lower Limb Basal C ell Carcinoma Right 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
--- OUTSIDE RECORDS SUMMARY | 2022-01-13 12:46 | XMS_ITS | Encounter Summary ---
:1940 Author Organization [facility] Address [address] [place] [address] Care Team Providers Name Role Phone Unavailable Primary Care Provider Unavailable Reason for Referral Outpatient (Routine) - Closed Specialty Diagnoses / Procedures Referred By Contact Refer red To Contact Diagnoses Swelling Testicle Garrison Casas M.D. 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 [facility] Procedures Management Visit [address] [place], [place] [address] Referral ID Status Reason Start Date Expiration Date Visits V isits Requested Authorized [id number] Canceled 04/10/2020 04/10/2021 5 5 Reason for [...] HOSPITAL Region Procedures Management Visit [address] [place] [address] Referral ID Status Reason Start Date Expiration Date Visits V isits Requested Authorized [id number] Canceled 04/10/2020 04/10/2021 5 5 Encounter Details Date Type Department Care Team Description 05/08/2020 Hospital Encounter Department of Garrison Casas ing Testicle (Primary Dx); Radiation Oncology Corinne Cabello Malignant Neoplasm Of Lower Limb Basal C ell Carcinoma Left; in [place], [facility] [address] [facility] 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; [place], [place] Malignant Neoplasm Of Lower Limb Basal Cell Carcinoma Right [address] [facility] [address] [place], [place] [phone] [address] (Work) [phone] Social History Tobacco Use Types Packs/Day Years [...] I have ordered a scrotal ultrasound at [facility]. The patient will continue with treatment as planned. Signed by: Garrison Casas M.D. 05/08/2020 2:54 PM CDT [facility] Radiation Therapy Center [address] [place] [address] documented in this encounter Plan of Treatment [...]
--- OUTSIDE RECORDS SUMMARY | 2022-01-13 12:46 | XMS_ITS | Encounter Summary ---
:1940 Author Organization [facility] Address [address] [place] [address] Care Team Providers Name Role Phone Unavailable [...] Right Bethany Natarajan M.D. 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 [facility] Procedures Management Visit [address] [place], [place] [address] Referral ID Status Reason Start Date Expiration Date Visits V isits Requested Authorized [id number] Canceled 04/10/2020 04/10/2021 5 5 Encounter Details Date Type Department Care Team Description 05/01/2020 Hospital Encounter Department of Bethany Natarajan 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; in [place], [facility] Malignant Neoplasm Of Lower Limb Basal C ell Carcinoma Right [place], [place] [address] [facility] [address] [place], [place] [phone] (Work) [phone] Social History Tobacco Use Types Packs/Day Years Used Date Smoking Tobacco: Every Day Sex Assigned at Date Recorded Not on file documented as of this encounter Last Filed Vital Signs Vital Sign Reading Time Taken Comments Blood Pressure 148/82 05/01/2020 1:55 PM RV DETAILER Pulse 86 05/01/2020 1:55 PM RV DETAILER Temperature 36.3 ??C (97.3 ??F) 05/01/2020 1:55 PM RV DETAILER Respiratory Rate - - Oxygen Saturation - [...] Quynh Moreno P.A.-C. [facility] 05/01/2020 2:25 PM RV DETAILER DETAILER Associated attestation - Bethany Natarajan M.D. - 05/01/2020 4:43 PM RV DETAILER I saw and evaluated the patient and [...]
--- OUTSIDE RECORDS SUMMARY | 2022-01-13 12:46 | XMS_ITS | Encounter Summary ---
:1940 Author Organization [facility] Address [address] [place] [address] Care Team Providers Name Role Phone Unavailable [...] 04/16/2020 1:25 PM Re sults for this HUMAN RESOURCES BENEFITS ASSISTANT procedure are i n the results section. documented in this encounter Results Pelvis-Oncology Image Exam (04/16/2020 1:25 PM HUMAN RESOURCES BENEFITS ASSISTANT) Specimen (Source) Anatomical Collection Method Collection Time Re ceived Time Location / / Volume Laterality 04/16/2020 1:25 PM HUMAN RESOURCES BENEFITS ASSISTANT Narrative IIMS - 04/16/2020 1:28 PM HUMAN RESOURCES BENEFITS ASSISTANT This order has been created and [...]
--- OUTSIDE RECORDS SUMMARY | 2022-01-13 12:46 | XMS_ITS | Encounter Summary ---
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 [facility] Procedures Prior Auth Rad Tx [place] IMRT COMPLEX [address] [place] [address] Referral ID Status Reason Start Date Expiration Date Visits Requ ested Visits Authorized [id number] Closed 04/16/2020 04/16/2021 15 15 Encounter Details Date Type Department Care Team Description 04/29/2020 Hospital Encounter Department of Radiation Shaneka Natarajan I., [facility] [place] [address] [facility] [address] [place] [phone] [phone] Social History Tobacco Use Types Packs/Day Years [...]
--- OUTSIDE RECORDS SUMMARY | 2022-01-13 12:46 | XMS_ITS | Encounter Summary ---
:1940 Author Organization [facility] Address [address] [place] [address] Care Team Providers Name Role Phone Unavailable [...] 12:25 Result s for this EXAM PM TRAFFIC CONTROL OFFICER procedure are i n the results section. documented in this encounter Results DERMATOLOGY IMAGE EXAM (02/12/2017 12:25 PM TRAFFIC CONTROL OFFICER) Specimen (Source) Anatomical Collection Method Collection Time Re ceived Time Location / / Volume Laterality 02/12/2017 12:00 PM TRAFFIC CONTROL OFFICER Narrative IIMS - 02/12/2017 2:50 PM TRAFFIC CONTROL OFFICER This order has been created and [...]
== END 2022-01-13 12:44 | disposition home or self-care (01) ==
LOC: WOUND 12:44
PROVIDERS: PCP Family Medicine; Visit Provider Nurse Practitioner Family
DX: L59.8 Other specified disorders of the skin and subcutaneous tissue related to radiation (principal); L97.812 Non-pressure chronic ulcer of other part of right lower leg with fat layer exposed; F17.200 Nicotine dependence, unspecified, uncomplicated; Z99.3 Dependence on wheelchair
CPT/HCPCS: 97602; 99213

== ENCOUNTER 2022-01-27 12:58 | Outpatient (CLI) | payer OTHER, SELFPAY ==
--- OUTSIDE RECORDS SUMMARY | 2022-01-27 13:04 | XMS_ITS | Encounter Summary ---
:1940 Author Organization [facility] Address [address] [place] [address] Care Team Providers Name Role Phone Unavailable Primary Care Provider Unavailable Reason for Visit Reason Comments Follow-up Encounter Details Date Type Department Care Team Description 10/30/2020 Clinical Communication Department of Bethany Natarajanzuhair Radiation Oncology in [place]inne Adhikari [facility] [address] [facility] [address] [place] [phone] Social History Tobacco Use Types Packs/Day Years [...] center to help with this. Phone number: [phone] Is it okay to leave a voicemail on answering machine with test results? No Pharmacy (if medication related): N/A Elif Parkinson documented in this encounter Plan of Treatment Not on filedocumented as of this encounter Visit Diagnoses Not on filedocumented in this encounter
--- OUTSIDE RECORDS SUMMARY | 2022-01-27 13:04 | XMS_ITS | Encounter Summary ---
:1940 Author Organization [facility] Address [address] [place] [address] Care Team Providers Name Role Phone Unavailable Primary Care Provider Unavailable Reason for Referral Outpatient (Routine) - Closed Specialty Diagnoses / Procedures Referred By Contact Refer red To Contact Radiation Oncology Bethany Natarajan [facility] M[facility] [address] [place] [address] Referral ID Status Reason Start Date Expiration Date Visits Requ ested Visits Authorized [id number] Closed 05/28/2020 05/28/2021 1 1 Scheduling Instructions 2-3 weeks with [facility] Outpatient (Routine) - Closed Specialty Diagnoses / Procedures Referred By Contact Refer red To Contact Radiation Oncology Bethany Natarajan [facility] M[facility] [address] [place] [address] Referral ID Status Reason Start Date Expiration Date Visits Requ ested Visits Authorized [id number] Closed 05/15/2020 05/15/2021 1 1 Scheduling Instructions Deedee first to assess skin Reason for Visit Outpatient (Routine) - Closed Specialty Diagnoses / Procedures Referred By Contact Refer red To Contact Radiation Oncology Bethany Natarajan [facility] M.[facility]. [address] [place] [address] Referral ID Status Reason Start Date Expiration Date Visits Requ ested Visits Authorized [id number] Closed 05/15/2020 05/15/2021 1 1 Encounter Details Date Type Department Care Team Description 05/28/2020 Hospital Encounter Department of Bethany Natarajan Neoplasm Of Lower Limb Basal Cell Carcinoma Left (Primary Dx); Radiation Oncology Corinne Adhikari Malignant Neoplasm Of Lower Limb Basal C ell Carcinoma Right; in [address] 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 [place], [place] [address] [facility] [address] [place], [place] [phone] [address] (Work) [phone] Social History Tobacco Use Types Packs/Day Years [...] Deedee Fry R.N. 05/28/2020 1:16 PM CDT [facility] [address] [place] [address] ATTESTATION FOR FOLLOW-UP VISIT I saw and [...]
--- OUTSIDE RECORDS SUMMARY | 2022-01-27 13:04 | XMS_ITS | Encounter Summary ---
:1940 Author Organization [facility] Address [address] [place] [address] Care Team Providers Name Role Phone Unavailable Primary Care Provider Unavailable Reason for Visit Reason Comments Med Refill Encounter Details Date Type Department Care Team Description 08/08/2020 Clinical Communication Department of Travis Hall Refjoanne Radiation Oncology [facility] [address] [place] [phone] Social History Tobacco Use Types Packs/Day Years Used Date Smoking Tobacco: Every Day Sex Assigned at Date Recorded Not on file documented as of this encounter Miscellaneous Notes Telephone Encounter - Deedee Fry R.N. - 08/08/2020 1:06 PM CDT Information Discussed I called and left voicemail on patient's phone requesting call back. Patient reported that he was taking [place] twice a day at his last in office visit with us. PLAN Dr. Natarajan and I will send through refill on [place] to get him through until August 16, 2020, when he is scheduled for follow up with Dr. Natarajan in [place]. Disposition/Recommendation: I requested call back, refill will [...] can be done or not Phone number: [phone] Is it okay to leave a voicemail on answering machine with test results? Yes Pharmacy (if medication related): [facility] [address] [place] [address] Paula Hall documented in this encounter Plan of Treatment Not on filedocumented as of this encounter Visit Diagnoses Not on filedocumented in this encounter
--- OUTSIDE RECORDS SUMMARY | 2022-01-27 13:04 | XMS_ITS | Encounter Summary ---
:1940 Author Organization [facility] Address [address] [place] [address] Care Team Providers Name Role Phone Unavailable Primary Care Provider Unavailable Encounter Details Date Type Department Care Team Description 07/10/2020 Clinical Communication Department of Bethany Natarajan Radiation Oncology in [place] Adhikari [facility] [address] [facility] [address] [place] [phone] Social History Tobacco Use Types Packs/Day Years [...] informed him that a prescription for the [place] has been sent to the [facility] in [place]. Phone number: [phone] Is it okay to leave a voicemail on answering machine with test results? Yes Pharmacy (if medication related): N/A Elif Parkinson documented in this encounter Plan of Treatment Not on filedocumented as of this encounter Visit Diagnoses Not on filedocumented in this encounter
--- OUTSIDE RECORDS SUMMARY | 2022-01-27 13:04 | XMS_ITS | Clinical Summary ---
:1940 Author Organization [facility] Address [address] [place] [address] Care Team Providers Name Role Phone Unavailable Primary Care Provider Unavailable Source Comments Patient records contain information from all sites at [facility]. For routine questions regarding patient records, call [phone] during business hours, M-F 8:00 AM - 5:00 PM Central Time. Record requests for emergency care only can be directed to [phone] at any time.[facility] Allergies Active Allergy Reactions Severity [...] Phone Addre ss Type Group [facility] [email or web address] 2021-Present [phone] [address] [place] [address]
--- OUTSIDE RECORDS SUMMARY | 2022-01-27 13:04 | XMS_ITS | Encounter Summary ---
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 [facility] Procedures Prior Auth Rad Tx [place] IMRT COMPLEX [address] [place] [address] Referral ID Status Reason Start Date Expiration Date Visits Requ ested Visits Authorized [id number] Closed 04/16/2020 04/16/2021 15 15 Encounter Details Date Type Department Care Team Description 05/09/2020 Hospital Encounter Department of Radiation Shaneka Natarajan I., [facility] [place] [address] [facility] [address] [place] [phone] [phone] Social History Tobacco Use Types Packs/Day Years [...]
--- OUTSIDE RECORDS SUMMARY | 2022-01-27 13:04 | XMS_ITS | Encounter Summary ---
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 [facility] Procedures Prior Auth Rad Tx [place] IMRT COMPLEX [address] [place] [address] Referral ID Status Reason Start Date Expiration Date Visits Requ ested Visits Authorized [id number] Closed 04/16/2020 04/16/2021 15 15 Encounter Details Date Type Department Care Team Description 05/13/2020 Hospital Encounter Department of Radiation Shaneka Natarajan I., [facility] [place] [address] [facility] [address] [place] [phone] [phone] Social History Tobacco Use Types Packs/Day Years [...]
--- OUTSIDE RECORDS SUMMARY | 2022-01-27 13:04 | XMS_ITS | Clinical Summary ---
:1940 Author Organization [facility] [place] [address] Care Team Providers Name Role Phone Alfredo [...] was well controlled her e on dilaudid BOOK REPAIRER on following regimen: 0 04/16/2014 Active mg/mL inj LOADING DOSE: 0.2 mg for 1 dose BOOK REPAIRER BOLUS DOSE: 0.2-0.3 mg LOCKOUT INTERVAL: 10 [...] elationship: Life Partner Secondary Health Care Agent: [place] p: Phone: Conservator: Relationship: Phone: Guardian: Relationship: [...] 3-15-10 05/06/2009 Cardiomyopathy , ischemic; old inf [place] 05/02/2009 Overview: Per preop, EF of 39% [...] Comments Blood Pressure 123/73 04/16/2014 2:19 PM PEANUT SEPARATOR Pulse 115 04/16/2014 2:19 PM PEANUT SEPARATOR Temperature 38.3 ??C (100.9 ??F) 04/16/2014 3:30 PM PEANUT SEPARATOR Respiratory Rate 20 04/16/2014 2:19 PM PEANUT SEPARATOR Oxygen Saturation 94% 04/16/2014 2:19 PM PEANUT SEPARATOR Inhaled Oxygen Concentration - - Weight 86.1 kg (189 lb 13.1 oz) 04/16/2014 5:00 AM PEANUT SEPARATOR Height 180.3 cm (5' 10.98) 04/02/2014 12:00 AM PEANUT SEPARATOR Body Mass Index 26.49 04/02/2014 12:00 AM PEANUT SEPARATOR Plan of Treatment Health Maintenance Due Date [...] 65+ 10/23/2021 Medical Devices Implanted Type Area Armature Bander Device Shelf Model / Identifier Expiration Serial / Date Lot Screw Self Drilling 3.5x15mm - [id number] N/A: Spine SOFAMOR DANEK [id number] / Implanted: Qty: 4 on 06/24/2010 at [facility] / Humeral Tray Left: [id number] / Implanted: Qty: 1 on 03/17/2012 at [facility] Shoulder / [id number] Description: HUMERAL TRAY Explanted Type Area Armature Bander Device Shelf Model / Identifier Expiration Serial / Date Lot Patch Vasc 0.8x8cm Xenosure Biological Pericardial - [id number] Right: Lemaitre 0.8P8# / Explanted: Qty: 1 on 03/09/2014 at [facility] [employer] / [id number] Results Not on filefrom Last 3 Months Insurance Payer Benefit Plan / Subscriber ID Effective Dates Phone Addre ss Type Group [facility] [id number] 2015-Present [address] [place] [address] Guarantor Name Account Type Relation to Date of Phone Bill ing Patient Address Tl Lugo Personal/Family Self 1940 [phone] (Home) [place] [address] Advance Directives Documents on File Type Date Recorded Patient Kiln Setter Explanati on Healthcare Directive 05/12/2009 Healthcare Directive 06/26/2010 Latest Code Status on File Code Status Date Activated Date Inactivated Comments Full Code 04/16/2014 2:21 PM Full Code 03/07/2014 8:16 PM 04/16/2014 2:21 PM Full Code 03/07/2014 12:01 PM 03/07/2014 8:16 PM Full Code 02/28/2014 6:12 AM 02/28/2014 11:11 PM Full Code 03/17/2012 12:44 PM 03/19/2012 4:35 PM Care Teams Dairy Processing Supervisor Relationship Specialty Start Date End Date Alfredo Starr MD PCP - General 11/13/08
--- OUTSIDE RECORDS SUMMARY | 2022-01-27 13:04 | XMS_ITS | Encounter Summary ---
:1940 Author Organization [facility] Address [address] [place] [address] Care Team Providers Name Role Phone Unavailable Primary Care Provider Unavailable Reason for Referral Outpatient (Routine) - Closed Specialty Diagnoses / Procedures Referred By Contact Refer red To Contact Diagnoses Swelling Testicle Garrison Casas M.D. 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 [facility] Procedures Management Visit [address] [place], [place] [address] Referral ID Status Reason Start Date Expiration Date Visits V isits Requested Authorized [id number] Canceled 04/10/2020 04/10/2021 5 5 Reason for [...] HOSPITAL Region Procedures Management Visit [address] [place] [address] Referral ID Status Reason Start Date Expiration Date Visits V isits Requested Authorized [id number] Canceled 04/10/2020 04/10/2021 5 5 Encounter Details Date Type Department Care Team Description 05/08/2020 Hospital Encounter Department of Garrison Casas ing Testicle (Primary Dx); Radiation Oncology Corinne Cabello Malignant Neoplasm Of Lower Limb Basal C ell Carcinoma Left; in [place], [facility] [address] [facility] 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; [place], [place] Malignant Neoplasm Of Lower Limb Basal Cell Carcinoma Right [address] [facility] [address] [place], [place] [phone] (Work) [phone] Social History Tobacco Use Types Packs/Day Years [...] I have ordered a scrotal ultrasound at [facility]. The patient will continue with treatment as planned. Signed by: Garrison Casas M.D. 05/08/2020 2:54 PM CDT [facility] Radiation Therapy Center [address] [place] [address] documented in this encounter Plan of Treatment [...]
--- OUTSIDE RECORDS SUMMARY | 2022-01-27 13:04 | XMS_ITS | Encounter Summary ---
:1940 Author Organization [facility] Address [address] [place] [address] Care Team Providers Name Role Phone Unavailable Primary Care Provider Unavailable Reason for Referral Outpatient (Routine) - Closed Specialty Diagnoses / Procedures Referred By Contact Refer red To Contact Radiation Oncology Bethany Natarajan [facility] Jason Sun [address] [place] [address] Referral ID Status Reason Start Date Expiration Date Visits Requ ested Visits Authorized [id number] Closed 05/15/2020 05/15/2021 1 1 Scheduling Instructions [...] [facility] Procedures Management Visit [address] [place], [place] [address] Referral ID Status Reason Start Date Expiration Date Visits V isits Requested Authorized [id number] Canceled 04/10/2020 04/10/2021 5 5 Reason for Visit Radiation Therapy (Routine) - Canceled Specialty Diagnoses / Procedures Referred By Contact Refer red To Contact Diagnoses 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 [facility] Region Procedures Management Visit [address] [place] [address] Referral ID Status Reason Start Date Expiration Date Visits V isits Requested Authorized [id number] Canceled 04/10/2020 04/10/2021 5 5 Encounter Details Date Type Department Care Team Description 05/15/2020 Hospital Encounter Department of Bethany Natarajan Neoplasm Of Lower Limb Basal Cell Carcinoma Left; Radiation Oncology Corinne Adhikari 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; in [place], [address] [facility] Malignant Neoplasm Of Lower Limb Basal C ell Carcinoma Right [place], [place] [address] [facility] [address] [place], [place] [phone] (Work) [phone] Social History Tobacco Use Types Packs/Day Years [...] Dr. Natarajan HISTORY OF PRESENT ILLNESS Mr. lT Lugo is a 79-year-old male with non-melanomatous [...] 2020 to complete skin assessment. Radiation Oncology [place] can be contacted at anytime for any questions or concerns. Patient stated a full understanding to the plan of care discussed today. Toxicities reviewed with Dr. Natarajan today. Signed by: Deedee Fry R.N. 05/15/2020 2:59 PM CDT [facility] Radiation Therapy Center [address] [place] [address] documented in this encounter Plan of Treatment [...]
--- OUTSIDE RECORDS SUMMARY | 2022-01-27 13:04 | XMS_ITS ---
:1940 Author Organization [facility] Address [address] [place] [address] Care Team Providers Name Role Phone Unavailable [...] Elapsed Days Session Dose Total Dos e [id number] 05/15/2020 21 300 cGy 4,500 cGy [id number] 05/06/2020 12 425 cGy 3,825 cGy [id number] 04/26/2020 2 700 cGy 2,100 cGy
--- OUTSIDE RECORDS SUMMARY | 2022-01-27 13:04 | XMS_ITS | Encounter Summary ---
:1940 Author Organization [facility] Address [address] [place] [address] Care Team Providers Name Role Phone Unavailable Primary Care Provider Unavailable Reason for Referral Specialty Diagnoses / Procedures Referred By Contact Refer red To Contact Bethany Natarajan M.D. 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 [address] [place] [phone] Malignant Neoplasm Of Lower Limb Basal C ell Carcinoma Left; 05/17/2020 Radiation Oncology Deedee Fry R.N. [address] [place] [phone] 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; in [place], Malignant Henry plasm Of Lower Limb Basal Cell Carcinoma Right [place] [address] [place] [address] Social History Tobacco Use Types [...]
--- OUTSIDE RECORDS SUMMARY | 2022-01-27 13:04 | XMS_ITS | Encounter Summary ---
:1940 Author Organization [facility] Address [address] [place] [address] Care Team Providers Name Role Phone Unavailable Primary Care Provider Unavailable Reason for Referral Outpatient (Routine) - Closed Specialty Diagnoses / Procedures Referred By Contact Refer red To Contact Radiation Oncology Bethany Natarajan [facility] M.D. [address] [place] [address] Referral ID Status Reason Start Date Expiration Date Visits Requ ested Visits Authorized [id number] Closed 05/28/2020 05/28/2021 1 1 Scheduling Instructions 2-3 weeks with CECY and Deedee Reason for Visit Outpatient (Routine) - Closed Specialty Diagnoses / Procedures Referred By Contact Refer red To Contact Radiation Oncology Bethany Natarajan [facility] Feli Gomez M.D. [address] [place] [phone] Referral ID Status Reason Start Date Expiration Date Visits Requ ested Visits Authorized [id number] Closed 05/28/2020 05/28/2021 1 1 Encounter Details Date Type Department Care Team Description 06/11/2020 Hospital Encounter Department of Bethany Natarajan (Primary Dx) Radiation Oncology Corinne Adhikari in [place], [address] [place] [address] [address] [facility] [address] [place], [place] [phone] (Work) [phone] Social History Tobacco Use Types Packs/Day Years [...] a 8 out of 10.He takes 1 [place] in the morning and 1 at bedtime. [...] will send through prescription refill on his [place] to his preferred pharmacy today. Patient is to not exceed 3200 mg of Ibuprofen a day. We encouraged patient to trial warm compresses for acute right eye mattering. We will send through referral to [facility]. We will see Mr. Tl Lugo in a follow-up visit in late July. The patient was told to contact us sooner with questions or concerns. He verbally expressed his understanding of the plan. Signed by: Deedee Fry R.N. 06/11/2020 1:09 PM CDT [facility] Radiation Therapy Center [address] [place] [address] documented in this encounter Plan of Treatment Scheduled Referrals Name Type Priority Associated Order Schedule Diagnoses Radiation Oncology Outpatient Referral Routine On ce for 1 office visit Occurrences sta rting (clinic) 06/11/2020 unti l 06/11/2020 documented as of this encounter Visit Diagnoses Diagnosis Red Eye - Primary documented in this encounter
--- OUTSIDE RECORDS SUMMARY | 2022-01-27 13:04 | XMS_ITS | Encounter Summary ---
:[address] [facility] Address [address] [place] [address] Care Team Providers Name Role Phone Unavailable Primary Care Provider Unavailable Encounter Details Date Type Department Care Team Description 05/15/2020 Hospital Encounter Department of Radiation Shaneka Natarajan I., Oncology in [facility] [address] [facility] [address] [place] [address] [phone] Social History Tobacco Use Types Packs/Day Years [...]
--- OUTSIDE RECORDS SUMMARY | 2022-01-27 13:04 | XMS_ITS | Encounter Summary ---
:[address] [facility] Address [address] [place] [address] Care Team Providers Name Role Phone Unavailable Primary Care Provider Unavailable Encounter Details Date Type Department Care Team Description 11/01/2020 Orders Only [facility] PCP TH Sa greyson Moore M.D. [address] [place], [place] [phone] (Wo rk) Social History Tobacco Use Types Packs/Day Years Used Date Smoking Tobacco: Every Day Sex Assigned at Date Recorded Not on file documented as of this encounter Plan of Treatment Not on filedocumented as of this encounter Visit Diagnoses Not on filedocumented in this encounter
--- OUTSIDE RECORDS SUMMARY | 2022-01-27 13:04 | XMS_ITS | Encounter Summary ---
:1940 Author Organization [facility] Address [address] [place] [address] Care Team Providers Name Role Phone Unavailable Primary Care Provider Unavailable Encounter Details Date Type Department Care Team Description 09/27/2020 Clinical Communication Department of Bethany Nataarjan Radiation Oncology in Corinne Adhikari [facility] [address] [facility] [address] [place] [phone] Social History Tobacco Use Types Packs/Day Years [...]
--- OUTSIDE RECORDS SUMMARY | 2022-01-27 13:04 | XMS_ITS | Encounter Summary ---
:1940 Author Organization [facility] Address [address] [place] [address] Care Team Providers Name Role Phone Unavailable Primary Care Provider Unavailable Reason for Visit Reason Comments Med Refill Encounter Details Date Type Department Care Team Description 07/09/2020 Clinical Communication Department of Bethany Natarajan ed [facility]ill [facility] [address] [facility] [address] [place] [phone] Social History Tobacco Use Types Packs/Day Years [...] would like a refill today. Phone number: [phone] Is it okay to leave a voicemail on answering machine with test results? Yes Pharmacy (if medication related): [facility] [address] [place] [address] [address] [facility] [address] [facility] [address] [address] documented in this encounter Plan of Treatment Not on filedocumented as of this encounter Visit Diagnoses Not on filedocumented in this encounter
--- OUTSIDE RECORDS SUMMARY | 2022-01-27 13:04 | XMS_ITS | Encounter Summary ---
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 [facility] Procedures Prior Auth Rad Tx [place] IMRT COMPLEX [address] [place] [address] Referral ID Status Reason Start Date Expiration Date Visits Requ ested Visits Authorized [id number] Closed 04/16/2020 04/16/2021 15 15 Encounter Details Date Type Department Care Team Description 05/14/2020 Hospital Encounter Department of Radiation [facility] [place] [address] [facility] [address] [place] [phone] [phone] Social History Tobacco Use Types Packs/Day Years [...]
--- OUTSIDE RECORDS SUMMARY | 2022-01-27 13:05 | XMS_ITS | Encounter Summary ---
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 [facility] Procedures Prior Auth Rad Tx [place] IMRT COMPLEX [address] [place] [address] Referral ID Status Reason Start Date Expiration Date Visits Requ ested Visits Authorized [id number] Closed 04/16/2020 04/16/2021 15 15 Encounter Details Date Type Department Care Team Description 04/24/2020 Hospital Encounter Department of Radiation Shaneka Natarajan I., [facility] [place] [address] [facility] [address] [place] [phone] Social History Tobacco Use Types Packs/Day Years [...]
--- OUTSIDE RECORDS SUMMARY | 2022-01-27 13:05 | XMS_ITS | Encounter Summary ---
:1940 Author Organization [facility] Address [address] [place] [address] Care Team Providers Name Role Phone Unavailable [...] 04/16/2020 1:25 PM Re sults for this [facility] [place]ON procedure are i n the results section. documented in this encounter Results Pelvis-Oncology Image Exam (04/16/2020 1:25 PM ROCK MASON) Specimen (Source) Anatomical Collection Method Collection Time Re ceived Time Location / / Volume Laterality 04/16/2020 1:25 PM R[facility]ON Narrative [facility] - 04/16/2020 1:28 PM R[place]ON This order has been created and auto-finalized [...]
--- OUTSIDE RECORDS SUMMARY | 2022-01-27 13:05 | XMS_ITS | Encounter Summary ---
:[address] 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
--- OUTSIDE RECORDS SUMMARY | 2022-01-27 13:05 | XMS_ITS | Encounter Summary ---
:1940 Author Organization [facility] Address [address] [place] [address] Care Team Providers Name Role Phone Unavailable Primary Care Provider Unavailable Reason for Visit Appointment Request (Routine) - Closed Specialty Diagnoses / Procedures Referred By Contact Refer red To Contact Radiation Oncology Diagnoses Malignant Neoplasm Of Skin Basal Cell Carcinoma Malignant Neoplasm Of Skin Squamous Cell Carcinoma Annita Jay M.D. [address], [place] [address] Referral ID Status Reason Start Date Expiration Date Visits Requ ested Visits Authorized [id number] Closed 03/08/2020 03/08/2021 1 1 Encounter Details Date Type Department Care Team Description 04/16/2020 Hospital Encounter Department of Bethany Natarajan Neoplasm Of Lower Limb Basal Cell Carcinoma Left (Primary Dx); Radiation Oncology Corinne Adhikari Malignant Neoplasm Of Lower Limb Basal C ell Carcinoma Right; in [place], [address] [place] [address] 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 [place], [place] [address] [facility] [address] [place], [place] [phone] (Work) [phone] Social History Tobacco Use Types Packs/Day Years Used Date Smoking Tobacco: Every Day Sex Assigned at Date Recorded Not on file documented as of this encounter Last Filed Vital Signs Vital Sign Reading Time Taken Comments Blood Pressure 124/76 04/16/2020 12:50 PM FAMILY SERVICE WORKER Pulse 93 04/16/2020 12:50 PM FAMILY SERVICE WORKER Temperature 37.2 ??C (99 ??F) 04/16/2020 12:50 PM FAMILY SERVICE WORKER Respiratory Rate - - Oxygen Saturation - - Inhaled Oxygen Concentration - - Weight 95.5 kg (210 lb 8.6 oz) 04/16/2020 12:50 PM FAMILY SERVICE WORKER Height - - Body Mass Index [...] surgery, nose SOCIAL HISTORY He lives in [place], [place]. He lives at [place] in an apartment. He is single. 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 He is mobile with [...] We discussed the acute as well as jail risks, including, but not limited to fatigue, [...] to face patient care. Signed by: Bethany aNtarajan M.D. 04/16/2020 4:52 PM FAMILY SERVICE WORKER Radiation Oncology [facility] Rad[facility] [address] [place], [place] [phone] LY SERVICE WORKER documented in this encounter Miscellaneous Notes Addendum Note - Mame Amezquita - 04/16/2020 1:00 PM FAMILY SERVICE WORKER Encounter addended by: Mame Amezquita on: 04/17/2020 8:34 AM Actions taken: Letter saved LY SERVICE WORKER documented in this encounter Plan of Treatment Not on filedocumented as of this encounter Visit Diagnoses Diagnosis Malignant Neoplasm Of Lower Limb Basal C ell Carcinoma Left - Primary Malignant Neoplasm Of Lower Limb Basal C ell Carcinoma Right 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
--- OUTSIDE RECORDS SUMMARY | 2022-01-27 13:05 | XMS_ITS | Encounter Summary ---
:1940 Author Organization [facility] Address [address] [place] [address] Care Team Providers Name Role Phone Unavailable [...] 12:30 Result s for this EXAM PM [employer] procedure are i n the results section. documented in this encounter Results DERMATOLOGY IMAGE EXAM (02/12/2017 12:30 PM [employer]) Specimen (Source) Anatomical Collection Method Collection Time Re ceived Time Location / / Volume Laterality 02/12/2017 12:00 PM [employer] Narrative [facility]IM[facility] - 02/12/2017 2:50 PM [employer] This order has been created and auto-finalized [...]
--- OUTSIDE RECORDS SUMMARY | 2022-01-27 13:05 | XMS_ITS | Encounter Summary ---
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; in [place], [facility] Malignant Neoplasm Of Lower Limb Basal C ell Carcinoma Right [place], [place] [address] [facility] [address] [place], [place] [phone] (Work) [phone] Social History Tobacco Use Types Packs/Day Years [...] planning. CT images were transferred to the [facility] treatment planning system, after a reference isocenter was determined and marked. Segmentation and treatment planning will take place priorto treatment delivery. Patient set up and imaging was appropriate and completed without incident. Material Flow Analyst use:No INE HEDDLE CLEANER documented in this encounter Plan of Treatment Not on filedocumented as of this encounter Procedures Procedure Name Priority Date/Time Associated Comments Diagnosis INITIAL RAD ONC Routine 04/16/2020 2:00 PM Malignant Neoplasm Results for this TREATMENT PLANNING MACHINE HEDDLE CLEANER Of Lower Limb Basal pr ocedure are in CT SIMULATION Cell Carcinoma L eft the results Malignant Neoplasm section. Of Lower Limb Squamous Cell Carcinoma Left Malignant Neoplasm Of Lower Limb Basal Cell Carcinoma Right documented in this encounter Results Initial Rad Onc Treatment Planning CT Simulation (04/16/2020 2:00 PM MACHINE HEDDLE CLEANER) Specimen (Source) Anatomical Location Collection Method / Collectio n Time Received Time / Laterality Volume Narrative [facility] - 04/16/2020 2:00 PM MACHINE HEDDLE CLEANER Coral Alonso RTT ? 04/16/2020 ??4:02 PM Initial Rad Onc Treatment Planning CT Si mulation Date/Time: 04/16/2020 3:57 PM Performed by: Bethany Natarajan M.D. Authorized by: Bethany Natarajan M.D. Bethany Natarajan M.D. RADIATION ONCOLOGY ORDERABLE S Performing Organization Address City/State/ZIP Code Phon e Number [facility] na documented in this encounter Visit Diagnoses Diagnosis 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
--- OUTSIDE RECORDS SUMMARY | 2022-01-27 13:05 | XMS_ITS | Encounter Summary ---
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 [facility] Procedures Management Visit [address] [place], [place] [address] Referral ID Status Reason Start Date Expiration Date Visits V isits Requested Authorized [id number] Canceled 04/10/2020 04/10/2021 5 5 Encounter Details Date Type Department Care Team Description 05/06/2020 Hospital Encounter Department of Garrison Casas Neoplasm Of Lower Limb Basal Cell Carcinoma Left; Radiation Oncology Corinne Cabello 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; in [address] Malignant Neoplasm Of Lower Limb Basal C ell Carcinoma Right [place], [place] [address] [facility] [address] [place], [place] [phone] (Work) [phone] Social History Tobacco Use Types Packs/Day Years [...]
--- OUTSIDE RECORDS SUMMARY | 2022-01-27 13:05 | XMS_ITS | Encounter Summary ---
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 [facility] Procedures Prior Auth Rad Tx [place] IMRT COMPLEX [address] [place] [address] Referral ID Status Reason Start Date Expiration Date Visits Requ ested Visits Authorized [id number] Closed 04/16/2020 04/16/2021 15 15 Encounter Details Date Type Department Care Team Description 05/06/2020 Hospital Encounter Department of Radiation Shaneka Natarajan I., [facility] [place] [address] [facility] [address] [place] [phone] [phone] Social History Tobacco Use Types Packs/Day Years [...]
--- OUTSIDE RECORDS SUMMARY | 2022-01-27 13:05 | XMS_ITS | Encounter Summary ---
:1940 Author Organization [facility] Address [address] [place] [address] Care Team Providers Name Role Phone Unavailable Primary Care Provider Unavailable Reason for Referral Specialty Diagnoses / Procedures Referred By Contact Refer red To Contact Bethany Natarajan M.D. 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 [facility] [place] [facility] Procedures Initial Rad Onc Treatment Planning CT Simulation [address] [place] [address] Referral ID Status Reason Start Date Expiration Date Visits Requ ested Visits Authorized [id number] Closed 04/10/2020 04/10/2021 1 1 [employer] Encounter Details Date Type Department Care Team Description 04/10/2020 Orders Only Department of Bethany Natarajan Malignant N eoplasm Of Lower Limb Basal Cell Carcinoma Left (Primary Dx); Radiation Oncology in Corinne Adhikari 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; [facility] Malignant Neoplasm Of Lower Limb Basal C ell Carcinoma Right [address] [place] [phone] Social History Tobacco Use Types Packs/Day Years [...] Treatment Planning CT Simulation (04/16/2020 2:00 PM [employer]) Specimen (Source) Anatomical Location Collection Method / Collectio n Time Received Time / Laterality Volume Narrative [facility] - 04/16/2020 2:00 PM [employer] Coral Alonso RTT ? 04/16/2020 ??4:02 PM Initial Rad Onc Treatment Planning CT Si mulation Date/Time: 04/16/2020 3:57 PM Performed by: Bethany Natarajan M.D. Authorized by: Bethany Natarajan M.D. Bethany Natarajan M.D. RADIATION ONCOLOGY ORDERABLE S Performing Organization Address City/State/ZIP Code Phon e Number [facility] [facility] [place] [facility] documented in this encounter Visit Diagnoses [...]
--- OUTSIDE RECORDS SUMMARY | 2022-01-27 13:05 | XMS_ITS | Encounter Summary ---
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 [facility] Procedures Prior Auth Rad Tx [place] IMRT COMPLEX [address] [place] [address] Referral ID Status Reason Start Date Expiration Date Visits Requ ested Visits Authorized [id number] Closed 04/16/2020 04/16/2021 15 15 Encounter Details Date Type Department Care Team Description 05/01/2020 Hospital Encounter Department of Radiation Shaneka Natarajan I., [facility] [place] [address] [facility] [address] [place] [phone] [phone] Social History Tobacco Use Types Packs/Day Years [...]
--- OUTSIDE RECORDS SUMMARY | 2022-01-27 13:05 | XMS_ITS | Encounter Summary ---
:1940 Author Organization [facility] Address [address] [place] [address] Care Team Providers Name Role Phone Unavailable [...] 04/16/2020 1:28 PM Re sults for this PROJECT MGR procedure are i n the results section. documented in this encounter Results Leg-Oncology Image Exam (04/16/2020 1:28 PM PROJECT MGR) Specimen (Source) Anatomical Collection Method Collection Time Re ceived Time Location / / Volume Laterality 04/16/2020 1:25 PM PROJECT MGR Narrative [facility] - 04/16/2020 1:28 PM PROJECT MGR This order has been created and auto-finalized [...]
--- OUTSIDE RECORDS SUMMARY | 2022-01-27 13:05 | XMS_ITS | Encounter Summary ---
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 [facility] Procedures Prior Auth Rad Tx [place] IMRT COMPLEX [address] [place] [address] Referral ID Status Reason Start Date Expiration Date Visits Requ ested Visits Authorized [id number] Closed 04/16/2020 04/16/2021 15 15 Encounter Details Date Type Department Care Team Description 05/02/2020 Hospital Encounter Department of Radiation Shaneka [facility]ajan I., [facility] [place] [address] [facility] [address] [place] [phone] [phone] Social History Tobacco Use Types Packs/Day Years [...]
--- OUTSIDE RECORDS SUMMARY | 2022-01-27 13:05 | XMS_ITS | Encounter Summary ---
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 [facility] Procedures Prior Auth Rad Tx [place] IMRT COMPLEX [address] [place] [address] Referral ID Status Reason Start Date Expiration Date Visits Requ ested Visits Authorized [id number] Closed 04/16/2020 04/16/2021 15 15 Encounter Details Date Type Department Care Team Description 04/29/2020 Hospital Encounter Department of Radiation Shaneka Natarajan I., [facility] [place] [address] [facility] [address] [place] [phone] [phone] Social History Tobacco Use Types Packs/Day Years [...]
--- OUTSIDE RECORDS SUMMARY | 2022-01-27 13:05 | XMS_ITS | Encounter Summary ---
:1940 Author Organization [facility] Address [address] [place] [address] Care Team Providers Name Role Phone Unavailable [...] 12:25 Result s for this EXAM PM STORE SHOPPER procedure are i n the results section. documented in this encounter Results DERMATOLOGY IMAGE EXAM (02/12/2017 12:25 PM STORE SHOPPER) Specimen (Source) Anatomical Collection Method Collection Time Re ceived Time Location / / Volume Laterality 02/12/2017 12:00 PM STORE SHOPPER Narrative [facility] - 02/12/2017 2:50 PM STORE SHOPPER This order has been created and [...]
--- OUTSIDE RECORDS SUMMARY | 2022-01-27 13:05 | XMS_ITS | Encounter Summary ---
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 [facility] Procedures Management Visit [address] [place], [place] [address] Referral ID Status Reason Start Date Expiration Date Visits V isits Requested Authorized [id number] Canceled 04/10/2020 04/10/2021 5 5 Encounter Details Date Type Department Care Team Description 05/01/2020 Hospital Encounter Department of Bethany Natarajan 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; in [place], [facility] Malignant Neoplasm Of Lower Limb Basal C ell Carcinoma Right [place], [place] [address] [facility] [address] [place], [place] [phone] (Work) [phone] Social History Tobacco Use Types Packs/Day Years Used Date Smoking Tobacco: Every Day Sex Assigned at Date Recorded Not on file documented as of this encounter Last Filed Vital Signs Vital Sign Reading Time Taken Comments Blood Pressure 148/82 05/01/2020 1:55 PM FUNERAL DIRECTOR/EMBALMER Pulse 86 05/01/2020 1:55 PM FUNERAL DIRECTOR/EMBALMER Temperature 36.3 ??C (97.3 ??F) 05/01/2020 1:55 PM FUNERAL DIRECTOR/EMBALMER Respiratory Rate - - Oxygen Saturation - [...] Quynh Moreno P.A.-C. M.SJhon 05/01/2020 2:25 PM FUNERAL DIRECTOR/EMBALMER RAL DIRECTOR/EMBALMER Associated attestation - Bethany Natarajan M.D. - 05/01/2020 4:43 PM FUNERAL DIRECTOR/EMBALMER I saw and evaluated the patient and [...]
--- OUTSIDE RECORDS SUMMARY | 2022-01-27 13:05 | XMS_ITS | Encounter Summary ---
:1940 Author Organization [facility] Address [address] [place] [address] Care Team Providers Name Role Phone Unavailable Primary Care Provider Unavailable Encounter Details Date Type Department Care Team Description 02/12/2017 Hospital Encounter HX RST DERM SURG OP Avni Gaffney [facility] M.D. [address] [place] [address] (Wo rk) Social History Tobacco Use Types Packs/Day Years Used Date Smoking Tobacco: Never Assessed Sex Assigned at Date Recorded Not on file documented as of this encounter Last Filed Vital Signs Vital Sign Reading Time Taken Comments Blood Pressure 141/85 02/12/2017 8:05 AM 3RD PRESSMAN Vital sign result from Clinical Notes. Pulse 89 02/12/2017 8:05 AM 3RD PRESSMAN Vital sign result from Clinical Notes. Temperature [...]
--- OUTSIDE RECORDS SUMMARY | 2022-01-27 13:05 | XMS_ITS | Encounter Summary ---
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 [facility] Procedures Prior Auth Rad Tx [place] IMRT COMPLEX [address] [place] [address] Referral ID Status Reason Start Date Expiration Date Visits Requ ested Visits Authorized [id number] Closed 04/16/2020 04/16/2021 15 15 Encounter Details Date Type Department Care Team Description 05/03/2020 Hospital Encounter Department of Radiation Shaneka Natarajan I., [facility] [place] [address] [facility] [address] [place] [address] [phone] Social History Tobacco Use Types Packs/Day Years [...]
--- OUTSIDE RECORDS SUMMARY | 2022-01-27 13:05 | XMS_ITS | Encounter Summary ---
:1940 Author Organization [facility] Address [address] [place] [address] Care Team Providers Name Role Phone Unavailable Primary Care Provider Unavailable Reason for Visit Reason Comments Lab Monitoring Encounter Details Date Type Department Care Team Description 04/19/2020 Documentation Department of Radiation Deedee Fry, Lab Monitoring Oncology in [facility] [address] [facility] [address] [place] [phone] [phone] (Wo rk) Social History Tobacco Use Types Packs/Day Years Used Date Smoking Tobacco: Every Day Sex Assigned at Date Recorded Not on file documented as of this encounter Progress Notes Deedee Fry RJhonN. - 04/19/2020 10:39 AM CST Lab result entered in [employer]ST[employer] documented in this encounter Plan of Treatment Not on filedocumented as of this encounter Procedures Procedure Name Priority Date/Time Associated Diagnosis Comme nts LABEXT SARS Routine 04/17/2020 12:00 AM Results for this CORONAVIRUS-2 MANAGER OF SUSTAINABILITY procedure are in (COVID-19) RNA the results section. documented in this encounter Results EXT SARS Coronavirus-2 (COVID-19) RNA (04/17/2020 12:00 AM MANAGER OF SUSTAINABILITY) [facility] Method Time Signature EXT Undetected Inconclus [facility] SARS-CoV-2 sylvia, LABORATORIES - RNA Indetermi NINA [...] [facility] [place] [facility] - [address] [place] [address] [facility] documented in this encounter Visit Diagnoses Not on filedocumented in this encounter
--- OUTSIDE RECORDS SUMMARY | 2022-01-27 13:05 | XMS_ITS | Encounter Summary ---
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 [facility] Procedures Management Visit [address] [place], [place] [address] Referral ID Status Reason Start Date Expiration Date Visits V isits Requested Authorized [id number] Canceled 04/10/2020 04/10/2021 5 5 Reason for [...] Health Services Procedures Management Visit [address] [place], [place] [address] Referral ID Status Reason Start Date Expiration Date Visits V isits Requested Authorized [id number] Canceled 04/10/2020 04/10/2021 5 5 Encounter Details Date Type Department Care Team Description 05/07/2020 Hospital Encounter Department of Garrison Casas Neoplasm Of Lower Limb Basal Cell Carcinoma Left; Radiation Oncology Corinne Cabello 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; in [place], [address] [place] [address] Malignant Neoplasm Of Lower Limb Basal C ell Carcinoma Right [place], [place] [address] [facility] [address] [place], [place] [phone] (Work) [phone] Social History Tobacco Use Types Packs/Day Years [...] I provided patient with Moist Skin Reaction [id number] pamphlet yesterday. I encouraged him to [...] [facility] [address] [place] [address] documented in this encounter Plan of Treatment [...]
--- OUTSIDE RECORDS SUMMARY | 2022-01-27 13:05 | XMS_ITS | Encounter Summary ---
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 [facility] Procedures Prior Auth Rad Tx [place] IMRT COMPLEX [address] [place] [address] Referral ID Status Reason Start Date Expiration Date Visits Requ ested Visits Authorized [id number] Closed 04/16/2020 04/16/2021 15 15 Encounter Details Date Type Department Care Team Description 04/26/2020 Hospital Encounter Department of Radiation Shaneka Natarajan I., [facility] [place] [address] [facility] [address] [place] [phone] [phone] Social History Tobacco Use Types Packs/Day Years [...]
--- OUTSIDE RECORDS SUMMARY | 2022-01-27 13:05 | XMS_ITS | Encounter Summary ---
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 [facility] Procedures Prior Auth Rad Tx [place] IMRT COMPLEX [address] [place] [address] Referral ID Status Reason Start Date Expiration Date Visits Requ ested Visits Authorized [id number] Closed 04/16/2020 04/16/2021 15 15 Encounter Details Date Type Department Care Team Description 05/07/2020 Hospital Encounter Department of Radiation Shaneka Natarajan I., [facility] [place] [address] [facility] [address] [place] [address] [phone] Social History Tobacco Use Types Packs/Day Years [...]
--- OUTSIDE RECORDS SUMMARY | 2022-01-27 13:05 | XMS_ITS | Encounter Summary ---
:1940 Author Organization [facility] Address [address] [place] [address] Care Team Providers Name Role Phone Unavailable [...] 12:35 Result s for this EXAM PM TELEVISION PARTS TESTER procedure are i n the results section. documented in this encounter Results DERMATOLOGY IMAGE EXAM (02/12/2017 12:35 PM TELEVISION PARTS TESTER) Specimen (Source) Anatomical Collection Method Collection Time Re ceived Time Location / / Volume Laterality 02/12/2017 12:00 PM TELEVISION PARTS TESTER Narrative [facility] - 02/12/2017 2:50 PM TELEVISION PARTS TESTER This order has been created and auto-finalized [...]
--- OUTSIDE RECORDS SUMMARY | 2022-01-27 13:05 | XMS_ITS | Encounter Summary ---
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 [facility] Procedures Prior Auth Rad Tx [place] IMRT COMPLEX [address] [place] [address] Referral ID Status Reason Start Date Expiration Date Visits Requ ested Visits Authorized [id number] Closed 04/16/2020 04/16/2021 15 15 Encounter Details Date Type Department Care Team Description 05/08/2020 Hospital Encounter Department of Radiation Shaneka Natarajan I., [facility] [place] [address] [facility] [address] [place] [phone] [phone] Social History Tobacco Use Types Packs/Day Years [...]
--- OUTSIDE RECORDS SUMMARY | 2022-01-27 13:05 | XMS_ITS | Encounter Summary ---
:1940 Author Organization [facility] Address [address] [place] [address] Care Team Providers Name Role Phone Unavailable [...] 04/16/2020 1:28 PM Re sults for this JOINT SETTER procedure are i n the results section. documented in this encounter Results Leg-Oncology Image Exam (04/16/2020 1:28 PM JOINT SETTER) Specimen (Source) Anatomical Collection Method Collection Time Re ceived Time Location / / Volume Laterality 04/16/2020 1:25 PM JOINT SETTER Narrative IIMS - 04/16/2020 1:28 PM JOINT SETTER This order has been created and [...]
--- OUTSIDE RECORDS SUMMARY | 2022-01-27 13:05 | XMS_ITS | Encounter Summary ---
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 [facility] Procedures Prior Auth Rad Tx [place] IMRT COMPLEX [address] [place] [address] Referral ID Status Reason Start Date Expiration Date Visits Requ ested Visits Authorized [id number] Closed 04/16/2020 04/16/2021 15 15 Encounter Details Date Type Department Care Team Description 04/25/2020 Hospital Encounter Department of Radiation Shaneka [facility]atarajan I., [facility] [place] [address] [facility] [address] [place] [phone] [phone] Social History Tobacco Use Types Packs/Day Years [...]
--- OUTSIDE RECORDS SUMMARY | 2022-01-27 13:05 | XMS_ITS | Encounter Summary ---
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 [facility] Procedures Prior Auth Rad Tx [place] IMRT COMPLEX [address] [place] [address] Referral ID Status Reason Start Date Expiration Date Visits Requ ested Visits Authorized [id number] Closed 04/16/2020 04/16/2021 15 15 Encounter Details Date Type Department Care Team Description 04/30/2020 Hospital Encounter Department of Radiation Shaneka [facility]ajan I., [facility] [place] [address] [facility] [address] [place] [phone] [phone] Social History Tobacco Use Types Packs/Day Years [...]
--- OUTSIDE RECORDS SUMMARY | 2022-01-27 13:05 | XMS_ITS | Encounter Summary ---
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 [facility] Procedures Management Visit [address] [place], [place] [address] Referral ID Status Reason Start Date Expiration Date Visits V isits Requested Authorized [id number] Canceled 04/10/2020 04/10/2021 5 5 Encounter Details Date Type Department Care Team Description 04/26/2020 Hospital Encounter Department of Bethany Natarajan 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; in [place], [facility] Malignant Neoplasm Of Lower Limb Basal C ell Carcinoma Right [place], [place] [address] [facility] [address] [place], [place] [phone] (Work) [phone] Social History Tobacco Use Types Packs/Day Years Used Date Smoking Tobacco: Every Day Sex Assigned at Date Recorded Not on file documented as of this encounter Last Filed Vital Signs Vital Sign Reading Time Taken Comments Blood Pressure 156/86 04/26/2020 2:31 PM MATH INSTRUCTOR Pulse 92 04/26/2020 2:31 PM MATH INSTRUCTOR Temperature 36.9 ??C (98.5 ??F) 04/26/2020 2:31 PM MATH INSTRUCTOR Respiratory Rate - - Oxygen Saturation - - Inhaled Oxygen Concentration - - Weight 95.5 kg (210 lb 8.6 oz) 04/26/2020 2:31 PM MATH INSTRUCTOR Height - - Body Mass Index - [...] 700 1400 3500 04/24/2020 04/25/2020 1 F1_RTInguinal 049 101 1787 04/24/2020 04/25/2020 1 F1_LT Leg 313 006 6471 04/24/2020 04/25/2020 1 Course Summary 04/24/2020 04/25/2020 [...] by: Deedee Fry R.N. 04/26/2020 2:54 PM MATH INSTRUCTOR ATTESTATION FOR MANAGEMENT VISIT I saw and evaluated the patient and participated in the gregory portions of the service as noted above. I reviewed the documentation of Ms. Deedee Fry RN and agree with the findings and plan. The patient appears well on exam. We will continue with radiation as planned and monitor weekly. Bethany Natarajan M.D., 04/26/2020 INSTRUCTOR documented in this encounter Plan of Treatment [...]
--- OUTSIDE RECORDS SUMMARY | 2022-01-27 13:06 | XMS_ITS | Encounter Summary ---
:1940 Author Organization [facility] Address [address] [place] [address] Care Team Providers Name Role Phone Unavailable [...] 12:20 Result s for this EXAM PM ASSOCIATE SOFTWARE APPLICATION ENGINEER procedure are i n the results section. documented in this encounter Results DERMATOLOGY IMAGE EXAM (02/12/2017 12:20 PM ASSOCIATE SOFTWARE APPLICATION ENGINEER) Specimen (Source) Anatomical Collection Method Collection Time Re ceived Time Location / / Volume Laterality 02/12/2017 12:00 PM ASSOCIATE SOFTWARE APPLICATION ENGINEER Narrative IIMS - 02/12/2017 2:49 PM ASSOCIATE SOFTWARE APPLICATION ENGINEER This order has been created and [...]
--- OUTSIDE RECORDS SUMMARY | 2022-01-27 13:06 | XMS_ITS | Encounter Summary ---
:1940 Author Organization [facility] Address [address] [place] [address] Care Team Providers Name Role Phone Unavailable [...] 12:15 Result s for this EXAM PM PLANT ENGINEERING SUPERVISOR procedure are i n the results section. documented in this encounter Results DERMATOLOGY IMAGE EXAM (02/12/2017 12:15 PM PLANT ENGINEERING SUPERVISOR) Specimen (Source) Anatomical Collection Method Collection Time Re ceived Time Location / / Volume Laterality 02/12/2017 12:00 PM PLANT ENGINEERING SUPERVISOR Narrative IIMS - 02/12/2017 2:49 PM PLANT ENGINEERING SUPERVISOR This order has been created and [...]
--- OUTSIDE RECORDS SUMMARY | 2022-01-27 13:06 | XMS_ITS | Encounter Summary ---
:1940 Author Organization [facility] Address [address] [place] [address] Care Team Providers Name Role Phone Unavailable [...] 12:00 Result s for this EXAM PM CHILD NUTRITION DIRECTOR procedure are i n the results section. documented in this encounter Results DERMATOLOGY IMAGE EXAM (01/19/2017 12:00 PM CHILD NUTRITION DIRECTOR) Specimen (Source) Anatomical Location Collection Method / Collectio n Time Received Time / Laterality Volume Narrative IIMS - 01/19/2017 4:19 PM CHILD NUTRITION DIRECTOR This order has been created and [...]
--- OUTSIDE RECORDS SUMMARY | 2022-01-27 13:06 | XMS_ITS | Encounter Summary ---
:1940 Author Organization [facility] Address [address] [place] [address] Care Team Providers Name Role Phone Unavailable [...] 12:05 Result s for this EXAM PM MAINTAINER OPERATOR procedure are i n the results section. documented in this encounter Results DERMATOLOGY IMAGE EXAM (02/12/2017 12:05 PM MAINTAINER OPERATOR) Specimen (Source) Anatomical Collection Method Collection Time Re ceived Time Location / / Volume Laterality 02/12/2017 12:00 PM MAINTAINER OPERATOR Narrative IIMS - 02/12/2017 2:49 PM MAINTAINER OPERATOR This order has been created and [...]
--- OUTSIDE RECORDS SUMMARY | 2022-01-27 13:06 | XMS_ITS | Encounter Summary ---
:[address] [facility] Address [address] [place] [address] Care Team Providers Name Role Phone Unavailable [...] 12:00 Result s for this EXAM PM SPEECH PATHOLOGY ASSISTANT procedure are i n the results section. documented in this encounter Results DERMATOLOGY IMAGE EXAM (02/12/2017 12:00 PM SPEECH PATHOLOGY ASSISTANT) Specimen (Source) Anatomical Collection Method Collection Time Re ceived Time Location / / Volume Laterality 02/12/2017 12:00 PM SPEECH PATHOLOGY ASSISTANT Narrative IIMS - 02/12/2017 2:49 PM SPEECH PATHOLOGY ASSISTANT This order has been created and [...]
--- OUTSIDE RECORDS SUMMARY | 2022-01-27 13:06 | XMS_ITS | Encounter Summary ---
:1940 Author Organization [facility] Address [address] [place] [address] Care Team Providers Name Role Phone Unavailable [...] 12:10 Result s for this EXAM PM YARDING AND FOLDING MACHINE OPERATOR procedure are i n the results section. documented in this encounter Results DERMATOLOGY IMAGE EXAM (02/12/2017 12:10 PM YARDING AND FOLDING MACHINE OPERATOR) Specimen (Source) Anatomical Collection Method Collection Time Re ceived Time Location / / Volume Laterality 02/12/2017 12:00 PM YARDING AND FOLDING MACHINE OPERATOR Narrative IIMS - 02/12/2017 2:49 PM YARDING AND FOLDING MACHINE OPERATOR This order has been created [...]
== END 2022-01-27 12:59 | disposition home or self-care (01) ==
LOC: WOUND 12:58
PROVIDERS: PCP Family Medicine; Visit Provider Nurse Practitioner Family
DX: L59.8 Other specified disorders of the skin and subcutaneous tissue related to radiation (principal); L97.812 Non-pressure chronic ulcer of other part of right lower leg with fat layer exposed; F17.200 Nicotine dependence, unspecified, uncomplicated; Z99.3 Dependence on wheelchair
CPT/HCPCS: 99213

== ENCOUNTER 2022-04-02 09:51 | Outpatient (CLI) | payer OTHER, SELFPAY ==
[2022-04-02 11:20] LABS: Albumin* 3.7 g/dL (3.3-5.0); Chloride* 111 mmol/L (96-114)
[2022-04-02 11:21] LABS: Potassium* 4.8 mmol/L (3.6-5.1); Sodium* 143 mmol/L (135-149)
[2022-04-02 11:23] LABS: Alkaline Phosphatase* 82 U/L (40-150); Aspartate Amino Transferase* 18 U/L (12-35); Bilirubin Total* 0.5 mg/dL (0.1-1.5); Blood Urea Nitrogen* 18 mg/dL (7-30); Carbon Dioxide* 29 mmol/L (20-32); Cholesterol* 92 mg/dL (90-199); Creatinine* 1.3 mg/dL (0.5-1.5); Estimated Glomerular Filt Rate 56 ml/min; Glucose* 84 mg/dL (60-115); Total Protein* 7.5 g/dL (6.0-8.3); Triglycerides* 50 mg/dL (40-149)
[2022-04-02 11:24] LABS: Alanine Aminotransferase* 12 U/L (4-50); Calcium* 8.5 mg/dL (8.4-10.6); HDL Cholesterol* 28 mg/dL (>=40); LDL Cholesterol Calculated 54 mg/dL (<100)
== END 2022-04-02 09:52 | disposition home or self-care (01) ==
LOC: NFLDREF 09:51
PROVIDERS: PCP Family Medicine; Visit Provider Family Medicine
DX: E78.5 Hyperlipidemia, unspecified (principal)
CPT/HCPCS: 80053; 80061

== ENCOUNTER 2022-04-06 14:18 | Outpatient (CLI) | payer OTHER, SELFPAY ==
--- NOTE | 2022-04-06 14:00 | CRLHL7_ITS ---
For Patients: As a result of the Century Cures Act, medical imaging exams and procedure reports are released immediately into your electronic medical record. You may view this report before your referring provider. If you have questions, please contact your health care provider. Indication: Right LE amputation, non healing wound in groin Technique: Postcontrast CT pelvis. 98 cc Isovue 370 intravenous contrast. Please note that all CT scans at this facility use dose modulation, iterative reconstruction, and/or weight-based dosing when appropriate to reduce radiation dose to as low as reasonably achievable. Comparison: None Findings: Postoperative changes right leg amputation at the level of the proximal/mid femoral diaphysis. No soft tissue gas. No exposure of the bone. Well-defined heterotopic calcification associated with the femoral stump at the medial aspect. No evidence of acute periostitis or cortical destruction. No organized fluid collection, abscess or suspicious mass. There is a small low-density area measuring 2.6 cm adjacent to the proximal inguinal canal which may represent mild reactive adenopathy or perhaps a small lymphocele. Dense vascular calcifications are present. 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 Bladder normal. Prostate mildly enlarged. No bowel obstruction. Degenerative facet arthropathy lower lumbar spine without acute fracture or spondylolisthesis. Degenerative joint disease of both hips. Chronic osteitis pubis. Postop changes also present to the right inguinal region with surgical clips. No underlying suspicious finding. Impression: No evidence of acute osteomyelitis, gas-forming infection or abscess. Small mildly reactive lymph node or lymphocele at the proximal right inguinal canal. Please note that all CT scans at this facility use dose modulation, iterative reconstruction, and/or weight-based dosing when appropriate to reduce radiation dose to as low as reasonably achievable. Dictated by Rik Mooney MD @ 04/07/2022 1:06:19 PM (Electronically Signed)
== END 2022-04-06 14:19 | disposition home or self-care (01) ==
LOC: CT 14:19
PROVIDERS: PCP Family Medicine; Visit Provider Surgery
DX: T81.89XA Other complications of procedures, not elsewhere classified, initial encounter (principal); Z89.611 Acquired absence of right leg above knee
CPT/HCPCS: 72193; Q9967

== ENCOUNTER 2022-05-25 13:10 | Outpatient (CLI) | payer OTHER, SELFPAY | END 2022-05-25 13:11 | disposition home or self-care (01) | LOC: NFLDREF 05-26 11:52 | PROVIDERS: PCP Family Medicine; Referring Provider Family Medicine; Visit Provider Family Medicine | DX: I10 Essential (primary) hypertension (principal); Z79.01 Long term (current) use of anticoagulants | CPT/HCPCS: 80048 ==

== ENCOUNTER 2022-07-30 13:50 | Outpatient (CLI) | payer OTHER, SELFPAY ==
--- OUTSIDE RECORDS SUMMARY | 2022-08-02 16:04 | XMS_ITS | Continuity of Care Document ---
Author Name Unknown Organization [facility] Address [address] [place] [address] Phone Care Team Providers Care Grey Percher Name Role Phone Jonathan ALVAREZ, Amivenancio Unavailable Unavailable Allergies, Adverse Reactions, Alerts Substance Reaction Status Criticality No Known Allergies Active No Inform ation Medications Medication Instructions Dosage Effective Dates (start - stop) Status Comments Medrol (Tyrone) 4 mg tablets in a dose pack take by po route Not Available - Active ASPIRIN (unknown strength) Not Available - Active ATORVASTATIN CALCIUM (unknown strength) Not Available - Active DYRENIUM (unknown strength) Not Available - Active LISINOPRIL (unknown strength) Not Available - Active METOPROLOL TARTRATE (unknown strength) Not Available - Active Procedures Procedure Date Office/Outpatient Visit,Est, Mod 2015 Office/Outpatient Visit,Est, Mod 2015 Office/Outpatient Visit,Est, Mod 2013 Office/Outpatient Visit,New, [facility] 2013 X-Ray Exam Of Neck Spine, 4+ Views Neck Spine Fuse & Removal Addl 11 Addl Neck Spine Fusion Insert spine fix dev, ant, 2-3 seg Allograft, spine surg, structural Autograft, spine surgery, local 011 Allograft, spine surg, morselized Pre Op Office/outpatient visit, 011 X-ray exam of neck spine2-3 views Office/outpatient visit,est, mod 2010 Office/outpatient visit,new, [facility] 2010 Advance Directives Directive Yes / No Effective Date File Name No Information Encounters Encounter Description Practice Location Reason(s) For Visit Diagnoses Date Provider Providers Copied on Encounter Office/Outpa tient Visit,Est, Mod [facility], [address], [place], [place], [id number], [place] tel:[phone] [facility]erv[facility] 8 6 Mehbod Nasreenr. [facility], [address], [place], [place], [id number], [place]. tel:[phone] Office/Outpa tient Visit,Est, Mod [facility], [address], [place], [place], [id number], [place] tel:[phone] [facility] Cerv[facility] 6 Eckryanni Dominguez. [address] [facility] [address], [place], [place], [id number], [place]. tel:[phone] Office/Outpa tient Visit,Est, Mod Z [facility] [place], [address] [facility], [place], [address], [place] tel:[phone] [facility] CERVICALGIA 0 4 Eckryanni Dominguez. [address], [place], [id number], [place]. tel:[phone] Referring Provider: Alfredo Rubio, [facility] [address] [place], [address]. tel:[phone] Office/Outpa tient Visit,New, Mod Z [facility], [address], [place], [address], [place] tel:[phone] [facility] No Information 0 4 Ecmilagros Alberto. [address], [place], [id number], [place]. tel:[phone] Referring Provider: Alfredo Rubio, [facility] [address] [place], [address]. tel:[phone] Z [facility], [address], [place], [address], [place] tel:[phone] [facility] No Information 3 1 No Information Referring Provider: Alfredo Rubio, [facility] [address] [place], [address]. tel:[phone] Pre Op Office/outpa tient visit, Z [facility], [address], [place], [address], [place] tel:[phone] [facility] No Information June-0 1 No Information Referring Provider: Alfredo Rubio, [facility] [address] [place], [address]. tel:[phone] Office/outpa tient visit,est, mod Z [facility], [address], [place], [address], [place] tel:[phone] [facility] No Information May-0 1 No Information Referring Provider: Alfredo Rubio, [facility] [address] [place], [address]. tel:[phone] Office/outpa tient visit,new, mod Z [facility], [address], [place], [address], [place] tel:[phone] [facility] No Information 0 1 No Information Referring Provider: Alfredo Rubio, [facility] [address] [place], [address]. tel:[phone] Family History Family Member Type Diagnosis Age At Onset Problem (finding) Problem (finding) Problem (finding) Problem (finding) Problem (finding) Payers Payer name Insurance type Covered republican ID Authoriza tion(s) No Information Social History Type Description Quantity Date Captured Comments Alcohol Use Details Unknown Caffeine Use Details Unknown Tobacco Use Status Occasional tobacco smoker Smoking Status Current some day smoker Smoking Tobacco Use Details Cigar: No Details Available Cigar: No Details Available Sex Male Vital Signs Date / Time: Height Weight BMI Pulse Rate Blood Pressure Temperature Respiratory Rate Body Surface Area Head Circumference Head Circ. Percentile Wt./Yan. Percentile BMI percentile Pulse Ox Inhaled Ox 11:17 AM 182.88 cm 79.832 kg (176.00 lbs) 23.8 7 kg/m eter (2) 90 /min 127/74 mm[Hg] Chief Complaint And Reason For Visit No Information Reason For Referral Reason For Referral No Information Plan Of Treatment Date Type Action Status Future Order: Radiology Order barbie Complete 2+ Views ([id number]), Ordered on: Ordered History Of Present Illness Encounter Date Complaint History Of Prese nt Illness No Information Functional Status Date Functional Assessmen t No Information Instructions Date Instruction Additional Infor mation No Information Assessments Type Assessment Date assessment Cervicalgia Patient Care Teams Name Effective Dates (start - stop) Status Members No Information
== END 2022-07-30 13:51 | disposition home or self-care (01) ==
LOC: NFLDREF 08-02 16:02
PROVIDERS: PCP Family Medicine; Referring Provider Family Medicine; Visit Provider Family Medicine
DX: Z51.81 Encounter for therapeutic drug level monitoring (principal); Z79.01 Long term (current) use of anticoagulants
CPT/HCPCS: 85610

== ENCOUNTER 2023-05-12 16:25 | Outpatient (CLI) | payer OTHER, SELFPAY | END 2023-05-12 16:26 | disposition home or self-care (01) | PROVIDERS: PCP Family Medicine; Visit Provider Family Medicine | DX: E78.2 Mixed hyperlipidemia (principal); Z12.5 Encounter for screening for malignant neoplasm of prostate | CPT/HCPCS: 80053; G0103 ==

== ENCOUNTER 2023-07-01 17:56 | Outpatient (CLI) | payer OTHER, SELFPAY ==
--- OUTSIDE RECORDS SUMMARY | 2023-07-02 16:50 | XMS_ITS | Clinical Summary ---
Author Name Unknown Organization [place] Address [facility] [place] [address] Care Team Providers Care Edge Gluer Name Role Phone Alfredo Starr MD Primary Care Provider [phone] Elif Souza MD Unavailable Unavailable Allergies Active Allergy Reactions Criticality Noted Date Comments Latex Rash Low 12/20/2014 Medications Medication Sig Dispensed Refills Start Date End Date Status GABAPENTIN PO Active OXYCODONE HCL PO Active PANTOPRAZOLE SODIUM PO Take 40 mg by mouth Active WARFARIN SODIUM POIndications:1 Tab Wed-, 1/2 Tab on Wed Active metroNIDAZOLE (FLAGYL) 500 MG tabletIndications:Ri ght groin ulcer, with fat layer exposed (H) Apply 1 tablet (500 mg) topically daily 90 tablet 03/02/2023 Active Active Problems Problem Noted Date Diagnosed Date Basal cell carcinoma (BCC) 12/02/2022 Bilateral pneumonia 12/02/2022 Facial lesion 12/02/2022 Long-term (current) use of anticoagulants, INR g oal 2.0-3.0 12/02/2022 Lower extremity edema 12/02/2022 Non-healing right groin open wound 12/02/2022 Prostatitis 12/02/2022 Right groin ulcer, with fat layer exposed 2022 Nonhealing surgical wound 08/11/2022 Dermal hypersensitivity reaction 11/12/2015 Impaired cognition 06/06/2014 Adjustment reaction 05/25/2014 Gangrene of lower extremity 04/16/2014 Phantom limb syndrome 04/16/2014 S/P AKA (above knee amputation) 04/16/2014 Anemia due to acute blood loss 03/30/2014 Hypercoagulable state (H24) 03/30/2014 Pulmonary embolism 03/30/2014 Sinus tachycardia 03/30/2014 Dysphagia 03/07/2014 Overview: Needs to eat small, frequent meals. Food gets stuck high in esophagus Pain in left shoulder 06/02/2013 Rib cage dysfunction 06/02/2013 Disorder of rotator cuff 03/17/2012 Overview: S/p reverse left total shoulder arthroplasty 03/17/12 Tobacco use disorder 03/17/2012 Stenosis, cervical spine 06/17/2010 Overview: Left neck, shoulder and arm pain. 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 03/15/2010 Overview: Noted in 02/2010, took coumadin for 3 months , patient elected to discontinue and states will never take it again Hyperlipidemia 09/16/2009 Peripheral vascular disease (H24) 05/06/2009 Overview: S/p LEFT LOWER EXTREMITY bypass Stage 3 chronic kidney disease 05/06/2009 Overview: baseline creatinine 1.4-1.5 Cardiomyopathy in diseases classified elsewhere 05/02/2009 Overview: Per preop, EF of 39% Coronary atherosclerosis 04/30/2009 Hypertension 04/30/2009 Vascular disorder of extremity (H24) 04/30/2009 Muscle pain 11/23/2008 Cardiomegaly 05/27/2007 Chronic systolic CHF (congestive heart failure) 05/27/2007 Nonspecific abnormal electrocardiogram (ECG) (EK G) 05/27/2007 Resolved Problems Problem Noted Date Diagnosed Date Resolved Date Pressure injury of buttock, stage 2 09/22/2022 12/02/2022 Ulcer, scrotum 09/22/2022 12/02/2022 Encounters Date Type Department Care Team Description 06/15/2023 1:14 PM CDT - 06/15/2023 11:59 PM CDT Hospital Encounter [facility] Wound [place] [address] [phone] Mellisa Hill PA-C Right groin ulcer, 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) Discharge Disposition: Home or Self Care 06/15/2023 Travel 04/27/2023 12:57 PM LEASING PROFESSIONAL - 04/27/2023 11:59 PM LEASING PROFESSIONAL Hospital Encounter [facility] Wound [place] [address] [phone] Srinivasan Ruggiero MD Right groin ulcer, 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); Non-healing surgical wound, subsequent encounter Discharge Disposition: Home or Self Care 04/27/2023 Travel from Last 3 Months Social History Tobacco Use Types Packs/Day Years Used Date Smoking Tobacco: Every Day Cigars Adolescent Education Answer Date Record ed Getting School Help Needed Not on file 11/13 Sex and Gender Information Value Date Recorded Sex Assigned at Not on file Gender Identity Not on file Sexual Orientation Not on file Last Filed Vital Signs Vital Sign Reading Time Taken Comments Blood Pressure 95/62 06/15/2023 1:18 PM CDT Pulse 101 06/15/2023 1:18 PM CDT Temperature 36.7 ??C (98 ??F) 06/15/2023 1:18 PM CDT Respiratory Rate 20 10/21/2022 1:42 PM CDT Oxygen Saturation - - Inhaled Oxygen Concentration - - Weight 90.7 kg (200 lb) 08/11/2022 2:30 PM CDT Height 182.9 cm (6') 08/11/2022 2:30 PM CDT Body Mass Index 27.12 08/11/2022 2:30 PM CDT Plan of Treatment Upcoming Encounters Date Type Department Care Team (Late st Contact Info) Description 08/11/2023 1:30 PM CDT Appointment [facility] Wound [place] [id number] [phone] Oseas Ta, RN 09/08/2023 1:30 PM CDT Appointment [facility] Wound [facility] [address] [place] [phone] Oseas Ta, RN Health Maintenance Due Date Last Done Comments ADVANCE CARE PLANNING 1942 ALT 1942 ANNUAL REVIEW OF HM ORDERS 1942 BMP 1942 CBC 1942 HF ACTION PLAN 1942 LIPID 1942 MICROALBUMIN 1942 TSH W/FREE T4 REFLEX 1942 HEMOGLOBIN 05/11/1943 URINALYSIS 05/11/1943 ZOSTER IMMUNIZATION (1 of 2) 1992 RSV VACCINE ( & 60+) (1 - 1-dose 60+ series) 2002 FALL RISK ASSESSMENT 05/11/2007 MEDICARE ANNUAL WELLNESS VISIT 05/11/2007 PHQ-2 (once per calendar year) 2023 COVID-19 Vaccine (2022- season) 2023 02/05/2023, 07/01/2021, 02/06/2021, Additional history exists INFLUENZA VACCINE (Season Ended) 2023 DTAP/TDAP/TD IMMUNIZATION (3 - Td or Tdap) 01/02/2030 01/03/2020, 04/30/2009 LUNG CANCER SCREENING Discontinued 03/10/2014 Pneumococcal Vaccine: 65+ Years Completed 08/22/2014, 04/30/2009 HPV IMMUNIZATION Aged Out No longer e ligible based on patient's age to complete this topic IPV IMMUNIZATION Aged Out No longer e ligible based on patient's age to complete this topic MENINGITIS IMMUNIZATION Aged Out No l onger eligible based on patient's age to complete this topic RSV MONOCLONAL ANTIBODY Aged Out No l onger eligible based on patient's age to complete this topic Procedures Procedure Name Priority Date/Time Associated Diagnosis Comments CTA CHEST WITH CONTRAST Routine 03/10/2014 8:06 PM LEASING PROFESSIONAL from Last 3 Months or Most Recently Relevant to Health Maintenance Care Teams Edge Gluer Relationship Specialty Start Date End Date Alfredo Starr MD PCP - General Family Practice 12/11/14 Elif Souza MD Resident Student in organized health care education/training program 12/11/14
--- OUTSIDE RECORDS SUMMARY | 2023-07-02 16:50 | XMS_ITS | Referral Summary ---
Author Name Unknown Organization [place] Address [facility] [place] [address] Care Team Providers Care Internal Control Manager Name Role Phone Alfredo Starr MD Primary Care Provider [phone] Elif Souza MD Unavailable Unavailable Encounters Date Type Department Care Team Description 06/15/2023 Travel 06/15/2023 1:14 PM CDT - 06/15/2023 11:59 PM CDT Hospital Encounter [facility] Wound Clinic [place] [id number] [employer] [address] [place] [phone] Mellisa Hill PA-C Right groin ulcer, 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) Discharge Disposition: Home or Self Care 04/27/2023 Travel 04/27/2023 12:57 PM CREDIT OR LOANS OFFICER - 04/27/2023 11:59 PM CREDIT OR LOANS OFFICER Hospital Encounter [facility] [place] [address] [employer] [address] [place] [phone] Srinivasan Ruggiero MD Right groin ulcer, 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); Non-healing surgical wound, subsequent encounter Discharge Disposition: Home or Self Care from Last 3 Months Allergies Active Allergy Reactions Criticality Noted Date Comments Latex Rash Low 12/20/2014 Medications Medication Sig Dispensed Refills Start Date End Date Status GABAPENTIN PO Active OXYCODONE HCL PO Active PANTOPRAZOLE SODIUM PO Take 40 mg by mouth Active WARFARIN SODIUM POIndications:1 Tab Mon-Th, 1/2 Tab on Fri Active metroNIDAZOLE (FLAGYL) 500 MG tabletIndications:Ri ght [...] 2 09/22/2022 12/02/2022 Ulcer, scrotum 09/22/2022 12/02/2022 Social History Tobacco Use Types Packs/Day Years [...] Info) Description 08/11/2023 1:[address] [facility] Wound [facility] [address] [place] [phone] Oseas Ta, RN 09/08/2023 1:30 PM CDT Appointment [facility] [address] [facility] [address] [place] [phone] Oseas Ta, social worker aide Procedure Name Priority Date/Time Associated Diagnosis Comments CTA CHEST WITH CONTRAST Routine 03/10/2014 8:06 PM CREDIT OR LOANS OFFICER from Last 3 Months or Most Recently Relevant to Health Maintenance Care Teams Internal Control Manager Relationship Specialty Start Date End Date Alfredo Starr MD PCP - General Family Practice 12/11/14 Elif Souza MD Resident Student in organized health care education/training program 12/11/14
--- OUTSIDE RECORDS SUMMARY | 2023-07-02 16:51 | XMS_ITS | Encounter Summary ---
Author Name Unknown Organization [place] Address [facility] [place] [address] Care Team Providers Care Roller Coaster Operator Name Role Phone Alfredo Starr MD Primary Care Provider [phone] Elif Souza MD Unavailable Unavailable Reason for Visit * Reason Comments WOUND CARE Encounter Details Date Type Department Care Team (Late st Contact Info) Description 06/15/2023 1:14 PM CDT - 06/15/2023 11:59 PM CDT Hospital Encounter [facility] Wound Clinic [place] [address] [facility] [address] [place] [phone] Mellisa Hill PA-C [facility] [address] [facility] [place] [address] Right groin ulcer, 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) Discharge Disposition: Home or Self Care Social History Tobacco Use Types Packs/Day Years Used Date Smoking Tobacco: Every Day Cigars Adolescent Education Answer Date Record ed Getting School Help Needed Not on file 11/13 Sex and Gender Information Value Date Recorded Sex Assigned at Not on file Gender Identity Not on file Sexual Orientation Not on file documented as of this encounter Last Filed Vital Signs Vital Sign Reading Time Taken Comments Blood Pressure 95/62 06/15/2023 1:18 PM CDT Pulse 101 06/15/2023 1:18 PM CDT Temperature 36.7 ??C (98 ??F) 06/15/2023 1:18 PM CDT Respiratory Rate - - Oxygen Saturation - - Inhaled Oxygen Concentration - - Weight - - Height - - Body Mass Index - - documented in this encounter Discharge Instructions * Discharge Instructions* Chinyere Santos, CORY - 06/15/2023 1:17 PM CDT 06/15/2023 Tl Lugo 1940 A DME order was not completed because supplies were not needed Dressing changes outside of clinic are being performed by Patient PLAN: -Darleen will try and get records from [facility] to get a better history of your wound -Follow with a utilization management um nurse to look at lesions on head and face and left leg. [facility]: [phone]. Located in [place]. Could Call PCP for further recommendations in [facility]. Wound Dressing Change: Right Groin - Cleanse with mild unscented soap (such as Cetaphil, Cerave or Dove) and water - Apply small amount of VASHE on gauze or a paper towel, lay into wound bed, let sit for 10 minutes, remove gauze (do not rinse). Pat dry. - Apply a thin layer of triad to Wound, and, Surrounding skin of wound. When removing triad, only remove the top layer that is soiled. Mineral oil or baby oil can be used to gently remove the soiled layer. After the area is cleaned you can apply more Triad paste to areas that need it. - Leave it open to air with no cover dressing. If its getting messy and on your clothes you can cover with a soft gauze Change Daily and as needed Protein: A diet high in protein is important for wound healing, we recommend getting 90 grams of protein per day. Taking protein shakes or bars are a good way to get extra protein in your diet. Main Provider: Mellisa Hill PA-C June 15, 2023 Call us at [phone] if you have any questions about your wounds, if you have redness or swelling around your wound, have a fever of 101 degrees Fahrenheit or greater or if you have any other problems or concerns. We answer the phone Wednesday through Wednesday 8 am to 4 pm, please leave a message as we check the voicemail frequently throughout the day. If you have a concern over the weekend, pleaseleave a message and we will return your call Wednesday. If the need is urgent, go to the ER or urgent care. If you had a positive experience please indicate that on your patient satisfaction survey form [facility] will be sending you. It was a pleasure meeting with you today. Thank you for allowing me and my team the privilege of caring for you today. YOU are the reason we are here, and I truly hope we provided you with the excellent service you deserve. Please let us know if there is anything else we can do for you so that we can be sure you are leaving completely satisfied with your care experience. If you have any billing related questions please call the [facility] Business office at [phone].The clinic staff does not handle billing related matters. If you are scheduled to have a follow up appointment, you will receive a reminder call the day before your visit. On the appointment day please arrive 15 minutes prior to your appointment time. If you are unable to keep that appointment, please call the clinic to cancel or reschedule. If you are more than 10 minutes late or greater for your scheduled appointment time, the clinic policy is that you may be asked to reschedule. documented in this encounter Medications at Time of Discharge Medication Sig Dispensed Refills Start Date End Date GABAPENTIN PO metroNIDAZOLE (FLAGYL) 500 MG tabletIndications:Right groin ulcer, with fat layer exposed (H) Apply 1 tablet (500 mg) topically daily 90 tablet 03/02/2023 OXYCODONE HCL PO PANTOPRAZOLE SODIUM PO Take 40 mg by mouth WARFARIN SODIUM POIndications:1 Tab Mon-, 1/2 Tab on Fri documented as of this encounter Progress Notes * Mellisa Hill PA-C - 06/15/2023 1:40 PM CDT Images from the original note were not included. 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 Do not favor skin cancer as it was biopsied in December and negative. Certainly radiation would further complicate healing so will try to confirm if this was radiated and why. Will attempt to obtain records from [facility] to get better picture of the history of this area and whether or not he was radiated there. It is unclear why he would have radiation in this area if he has nohistory of skin cancer there. If sweating is part of the picture I would consider using drysol locally in an attempt to minimize this Recommended he see a utilization management um nurse for the suspicious lesions on his scalp, cheek and leg. With hisextensive hx of skin cancer and the appearance of the lesions they are highly suspicious for precancer/cancer Wound care plan: stop spray cleanser, vashe damp gauze x 5 minutes, remove, pat dry, then layer of Triad paste daily, leave uncovered if possible. See bottom of note for detailed wound care and patient instructions HISTORY OF PRESENT ILLNESS: Tl Lugo is a 83 year old male sp R AKA, morbid obesity, chronic CHF, extensive non-melanoma skin cancer hx who presents today for a non-healing R groin wound. He has had issues in this area since at least 2019. Per chart review this area was attempted to be biopsied in 2019 but had inadequate tissue. There was another path report that I could see from 10/09/2020 (Bernardo) stating cutaneous ulceration with underlying sclerosis and hypertrophic scar. Sometime around this time the patient reports he had radiation in the area. He had confirmed skin cancer of the LLE but when asked the indication to radiate the R groin he stated that it was to try to heal the ulcer. Unfortunately I am unable to find specific documentation for details. He states it was in [place] VITALS: BP 95/62 (BP Location: Left arm, Patient Position: Chair) Pulse 101 Temp 98 ??F (36.7 ??C) (Temporal) PHYSICAL EXAM: GENERAL: Patient is alert and oriented and in no acute distress INTEGUMENTARY: Wound (used by OP [facility] only) 08/11/22 1431 Right groin radiation skin reaction (Active) Thickness/Stage full thickness 06/15/23 1317 Base slough;epithelialization;red 06/15/23 1317 Periwound pink 06/15/23 1317 Periwound Temperature warm 06/15/23 1317 Periwound Skin Turgor soft 06/15/23 1317 Edges open 06/15/237 Length (cm) 4 06/15/23 1317 Width (cm) 3 06/15/23 131 Depth (cm) 0.2 06/15/23 1317 Wound (cm^2) 12 cm^2 06/15/23 131 Wound Volume (cm^3) 2.4 cm^3 06/15/23 131 Wound healing % -04505.33 06/15/23 1317 Drainage Characteristics/Odor sanguineous 06/15/231316 Drainage Amount moderate 06/15/23 131 Care, Wound non-select wound debridement performed. 06/15/23 131 MDM: 30 minutes were spent on the date of the visit reviewing previous chart notes, evaluating patient and developing the treatment plan, this excludes any time spent on procedures. PATIENT INSTRUCTIONS Further instructions from your care team 06/15/2023 Tl Lugo 1940 A DME order was not completed because supplies were not needed Dressing changes outside of clinic are being performed by Patient PLAN: -Darleen will try and get records from [facility] to get a better history of your wound -Follow with a utilization management um nurse to look at lesions on head and face and left leg. [facility]: [phone]. Located in [place]. Could Call PCP for further recommendations in [facility]. Wound Dressing Change: Right Groin - Cleanse with mild unscented soap (such as Cetaphil, Cerave or Dove) and water - Apply small amount of VASHE on gauze or a paper towel, lay into wound bed, let sit for 10 minutes, remove gauze (do not rinse). Pat dry. - Apply a thin layer of triad to Wound, and, Surrounding skin of wound. When removing triad, only remove the top layer that is soiled. Mineral oil or baby oil can be used to gently remove the soiled layer. After the area is cleaned you can apply more Triad paste to areas that need it. - Leave it open to air with no cover dressing. If its getting messy and on your clothes you can cover with a soft gauze Change Daily and as needed Protein: A diet high in protein is important for wound healing, we recommend getting 90 grams of protein per day. Taking protein shakes or bars are a good way to get extra protein in your diet. Main Provider: Mellisa Hill PA-C June 15, 2023 Call us at [phone] if you have any questions about your wounds, if you have redness or swelling around your wound, have a fever of 101 degrees Fahrenheit or greater or if you have any other problems or concerns. We answer the phone Wednesday through Wednesday 8 am to 4 pm, please leave a message as we check the voicemail frequently throughout the day. If you have a concern over the weekend, pleaseleave a message and we will return your call Wednesday. If the need is urgent, go to the ER or urgent care. If you had a positive experience please indicate that [facility]. It was a pleasure meeting with you today. Thank you for allowing me and my team the privilege of caring for you today. YOU are the reason we are here, and I truly hope we provided you with the excellent service you deserve. Please let us know if there is anything else we can do for you so that we can be sure you are leaving completely satisfied with your care experience. If you have any billing related questions please call the [facility] Business office at [phone].The clinic staff does not handle billing related matters. If you are scheduled to have a follow up appointment, you will receive a reminder call the day before your visit. On the appointment day please arrive 15 minutes prior to your appointment time. If you are unable to keep that appointment, please call the clinic to cancel or reschedule. If you are more than 10 minutes late or greater for your scheduled appointment time, the clinic policy is that you may be asked to reschedule. Electronically signed by Mellisa Hill PA-C on June 15, 2023 documented in this encounter Plan of Treatment Upcoming Encounters Date Type Department Care Team (Late st Contact Info) Description 08/11/2023 1:30 PM CDT Appointment [facility] W[facility] Clinic [place] [address] [facility] [address] [place] [phone] Oseas Ta RN 09/08/2023 1:30 PM CDT Appointment [facility] Wound Clinic [place] [address] [facility] [address] [place] [phone] Oseas Ta RN documented as of this encounter Visit Diagnoses Diagnosis Right groin ulcer, with fat layer exposed (H)- Primary documented in this encounter Care Teams Roller Coaster Operator Relationship Specialty Start Date End Date Alfredo Starr MD PCP - General Family Practice 12/11/14 Elif Souza MD Resident Student in organized health care education/training program 12/11/14 documented as of this encounter
--- OUTSIDE RECORDS SUMMARY | 2023-07-02 16:51 | XMS_ITS | Encounter Summary ---
Author Name Unknown Organization [place] Address [facility] [place] [address] Care Team Providers Care Cuff Stitcher Name Role Phone Alfredo Starr MD Primary Care Provider [phone] Elif Souza MD Unavailable Unavailable Encounter Details Date Type Department Care Team (Latest Contact Info) Description 03/30/2023 Travel Social History Tobacco Use Types Packs/Day Years Used Date Smoking Tobacco: Every Day Cigars Adolescent Education Answer Date Record ed Getting School Help Needed Not on file 11/13 Sex and Gender Information Value Date Recorded Sex Assigned at Not on file Gender Identity Not on file Sexual Orientation Not on file documented as of this encounter Plan of Treatment Upcoming Encounters Date Type Department Care Team (Late st Contact Info) Description 08/11/2023 1:30 PM CDT Appointment [facility] [place] [address] [place] [phone] Oseas Ta, RN 09/08/2023 1:30 PM CDT Appointment [facility] [place] [address] [place] [phone] Oseas Ta, RN documented as of this encounter Visit Diagnoses Not on filedocumented in this encounter Care Teams Cuff Stitcher Relationship Specialty Start Date End Date Alfredo Starr MD PCP - General Family Practice 12/11/14 Elif Souza MD Resident Student in organized health care education/training program 12/11/14 documented as of this encounter
--- OUTSIDE RECORDS SUMMARY | 2023-07-02 16:51 | XMS_ITS | Encounter Summary ---
Author Name Unknown Organization [place] Address Formerly [facility], [facility] [place] [address] Care Team Providers Care Women'S Studies Lecturer Name Role Phone Alfredo Starr MD Primary Care Provider [phone] Elif Souza MD Unavailable Unavailable Reason for Visit * Reason Comments WOUND CARE Encounter Details Date Type Department Care Team (Late st Contact Info) Description 04/27/2023 12:57 PM RESOLUTION REP - 04/27/2023 11:59 PM RESOLUTION REP Hospital Encounter [facility] [address] [place] [address] Srinivasan Ruggiero MD Vascular, Vein, and Wound [address] [facility] [address] [place] [address] Right groin ulcer, 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); Non-healing surgical wound, subsequent encounter Discharge Disposition: Home or Self Care Social [...] Sign Reading Time Taken Comments Blood Pressure 110/64 04/27/2023 1:10 PM RESOLUTION REP Pulse 85 04/27/2023 1:10 PM RESOLUTION REP Temperature 36.5 ??C (97.7 ??F) 04/27/2023 1:09 PM CS T Respiratory Rate - - Oxygen Saturation - - Inhaled Oxygen Concentration - - Weight - - Height - - Body Mass Index - - documented in this encounter Discharge Instructions * Discharge Instructions* Chinyere Santos RN - 04/27/2023 1:09 PM RESOLUTION REP [place] 1940 A DME order was not completed because the patient declined the need for supplies Dressing changes outside of clinic are being performed by Patient PLAN: -Antibiotic has been sent to your pharmacy. Take as directed. Take with food. Wound Dressing Change: Right Groin - Wash your hands with soap and water before you begin your dressing change and prepare a clean surface for dressings. - Cleanse with mild unscented soap (such as Cetaphil, Cerave or Dove) and water; Pat dry - If skin is red/rashy, apply THIN layer CriticAid 2% miconazole barrier cream to skin around wound - Dip ~1/10th piece of Melgisorb Calcium Alginate into Colactive Ag, then tuck into wound bed - Tuck 1-2 sterile 4x4 gauze pads into groin Change Daily and as needed Protein: A diet high in protein is important for wound healing, we recommend getting 90 grams of protein per day. Taking protein shakes or bars are a good way to get extra protein in your diet. Main Provider: Srinivasan Ruggiero M.D. April 27, 2023 Call us at [phone] if you have any questions about your wounds, have redness or swelling around your wound, have a fever of 101 degrees Fahrenheit or greater or if you have any other problems orconcerns. We answer the phone Wednesday through Wednesday 8 am to 4 pm, please leave a message as we check the voicemail frequently throughout the day. If you had a positive experience please indicate that on your patient satisfaction survey form [facility] will be sending you. It was [...] any billing related questions please call the [facility] office at [phone].The clinic staff does not handle billing related [...] that you may be asked to reschedule. LUTION REP documented in this encounter Medications at Time of Discharge Medication Sig Dispensed Refills Start Date End Date GABAPENTIN PO metroNIDAZOLE (FLAGYL) 500 MG tabletIndications:Righ t groin ulcer, with fat layer exposed (H) Apply 1 tablet (500 mg) topically daily 90 tablet 03/02/2023 OXYCODONE HCL PO PANTOPRAZOLE SODIUM PO Take 40 mg by mouth WARFARIN SODIUM POIndications:1 Tab Wed-, 1/2 Tab on Wed amoxicillin-clavulanat e (AUGMENTIN) 875-125 MG tabletIndications:Righ t groin ulcer, with fat layer exposed (H) Take 1 tablet by mouth 2 times daily for 14 days 28 tablet 04/27/2023 05/11/2023 documented as of this encounter Progress Notes * Srinivasan Ruggiero MD - 04/27/2023 1:13 PM CST Images from the original note were not included. Wound Clinic Note Visit date: 04/27/2023 Cheif Complaint: Tl Lugo is a 82 year old male had concerns including WOUND CARE. He has a right groin surgicalwound. HISTORY OF PRESENT ILLNESS: Tl Lugo reports the ulcer has been present since 2021. The wound began after a recent surgery and the incision did not heal normally. He reports he removed a possible skin cancer in the right groin he had a scraping surgery, he reports that it turned out that it was not a skin cancer. He reports after this he also had radiation therapy to the area. I do not have any medical records about any of this care. On January 13, 2023 I biopsied the wound edge which did not show any evidence of malignancy. We have tried a number of bandage regimens in the past including Flagyl powder, Vashe soaks, Hydrofera Blue and collagen dressings. He has had either no response to these bandage regimens are quite abit of burning sensation and he cannot continue to use these bandage regimens. For the most part the bandage regiment that he is tolerated the best is the one that he is using now He does note that the pain from his wound has gotten quite a bit worse over the last week or 2. He has been using the alginate and a dry dressing change once a day. He reports there is been little to no drainage from the area. There is been no difficulties with the dressing changes. The pateint denies fevers or chills. They report the pain from the wound has been 9/10 and has increased recently. Today the patient reports maintaining a high protein diet, but has not been taking protein supplements lately. The patient denies a history of diabetes, smoking or chronic steroid use. The patient has not had any symptoms of infection relating to the wound recently and is not currently on antibiotics. Problem List: No past medical history on file. Family Hx: family history is not on file. Surgical Hx: No past surgical history on file. Allergies: Allergies Allergen Reactions Latex Rash Medication History: Current Outpatient Medications Medication Sig amoxicillin-clavulanate (AUGMENTIN) 875-125 MG tablet Take 1 tablet by mouth 2 times daily for 14 days GABAPENTIN PO metroNIDAZOLE (FLAGYL) 500 MG tablet Apply 1 tablet (500 mg) topically daily OXYCODONE HCL PO PANTOPRAZOLE SODIUM PO Take 40 mg by mouth WARFARIN SODIUM PO No current facility-administered medications for this encounter. Tobacco History: reports that he has been smoking cigars. He does not have any smokeless tobacco history on file. REVIEW OF SYMPTOMS: The review of systems was negative except as noted in the HPI. PHYSICAL EXAMINATION: BP 110/64 Pulse 85 Temp 97.7 ??F (36.5 ??C) (Temporal) GENERAL: The patient overall appears well and is no acute distress. HEAD: normocephalic EYES: Sclera and conjunctiva clear NECK: no obvious masses LUNGS: breathing is unlabored. EXTREMITIES: No clubbing, cyanosis or edema SKIN: No rashes or other abnormalities except as noted under the Wound section below. NEUROLOGICAL: normal motor and sensory function WOUND/ulcer: The wound appears healthy with no sign of infection. Wound bed: granulation tissue Periwound: healthy intact skin The wound unfortunately has gotten worse today compared with his last clinic visit. 2 other smallerwounds have opened up. Despite his increased pain there is really no sign on physical exam to suggest cellulitis. Also see below for wound details: Circumferential volume measures: No data to display Ulceration(s)/Wound(s): Please see the media tab under the chart review for pictures of the wounds. Nursing staff removed dressings and cleansed wound. Wound (used by OP [facility] only) 08/11/22 1431 Right groin radiation skin reaction (Active) Thickness/Stage full thickness 04/27/23 1308 Base slough;epithelialization 04/27/23 1308 Periwound pink 04/27/23 1308 Periwound Temperature warm 04/27/23 1308 Periwound Skin Turgor soft 04/27/23 1308 Edges open 04/27/23 1308 Length (cm) 5 04/27/23 1308 Width (cm) 1 04/27/23 1308 Depth (cm) 0.2 04/27/23 1308 Wound (cm^2) 5 cm^2 04/27/23 1308 Wound Volume (cm^3) 1 cm^3 04/27/23 1308 Wound healing % -5455.56 04/27/23 1308 Drainage Characteristics/Odor sanguineous 04/27/23 1308 Drainage Amount moderate 04/27/23 1308 Care, Wound non-select wound debridement performed. 04/27/23 1308 No results for input(s): HGBA1C, A1C, EAG in the last 11694 hours. Invalid input(s): [id number] No results for input(s): ALBUMIN in the last 97237 hours. No sharp debridement performed today. ASSESSMENT: This is a 82 year old male with a right groin surgical wound. PLAN: We will bandage the right groin wound with alginate and dry gauze changed once a day or every otherday depending on the drainage. I discussed the option of trying some other bandage regiment with the patient however he is not interested in trying any other bandages at this time. I prescribed him Augmentin which she is tolerated well in the past due to his increased pain at thewound. I also discussed the option of having him see a steffen house supervisor to determine if any skin condition could be at play here, however the patient would prefer to hold off on pursuing this option for now. I have encouraged the patient to continue on their high protein diet to aid in wound healing. The patient will return to the wound clinic in 3-4 weeks. 30 minutes spent on the date of the encounter doing chart review, history and exam, documentation and further activities per the note, this time excludes any procedure time Srinivasan Ruggiero MD 04/27/2023 1:43 PM [facility] Vascular/Wound [phone] This note was electronically signed by Srinivasan Ruggiero MD Further instructions from your care team Tl Lug[place] 1940 A DME order was not completed because the patient declined the need for supplies Dressing changes outside of clinic are being performed by Patient PLAN: -Antibiotic has been sent to your pharmacy. Take as directed. Take with food. Wound Dressing Change: Right Groin - Wash your hands with soap and water before you begin your dressing change and prepare a clean surface for dressings. - Cleanse with mild unscented soap (such as Cetaphil, Cerave or Dove) and water; Pat dry - If skin is red/rashy, apply THIN layer CriticAid 2% miconazole barrier cream to skin around wound - Dip ~1/10th piece of Melgisorb Calcium Alginate into Colactive Ag, then tuck into wound bed - Tuck 1-2 sterile 4x4 gauze pads into groin Change Daily and as needed Protein: A diet high in protein is important for wound healing, we recommend getting 90 grams of protein per day. Taking protein shakes or bars are a good way to get extra protein in your diet. Main Provider: Srinivasan Ruggiero M.D. April 27, 2023 Call us at [phone] if you have any questions about your wounds, have redness or swelling around your wound, have a fever of 101 degrees Fahrenheit or greater or if you have any other problems orconcerns. We answer the phone Wednesday through Wednesday 8 am to 4 pm, please leave a message as we check the voicemail frequently throughout the day. If you had a positive experience please indicate that on your patient satisfaction survey form [facility] will be sending you. It was [...] any billing related questions please call the [facility] office at [phone].The clinic staff does not handle billing related [...] that you may be asked to reschedule. , LUTION REP documented in this encounter Plan of Treatment Upcoming Encounters Date Type Department Care Team (Late st Contact Info) Description 08/11/2023 1:30 PM CDT Appointment [facility] [place] [address] [place] [address] Oseas Ta, RN 09/08/2023 1:30 PM CDT Appointment [facility] Wound [facility] [address] [place] [address] Oseas Ta, RN documented as of this encounter Visit Diagnoses Diagnosis Right groin ulcer, with fat layer exposed (H)- Primary Non-healing surgical wound, subsequent encounter documented in this encounter Care Teams Women'S Studies Lecturer Relationship Specialty Start Date End Date Alfredo Starr MD PCP - General Family Practice 12/11/14 Elif Souza MD Resident Student in organized health care education/training program 12/11/14 documented as of this encounter
--- OUTSIDE RECORDS SUMMARY | 2023-07-02 16:51 | XMS_ITS | Continuity of Care Document ---
Author Name Unknown Organization [facility] Address [address] [place] [address] Phone Care Team Providers Care Division Leader Name Role Phone Jonathan ALVAREZ, Amivenancio Unavailable Unavailable Allergies, Adverse Reactions, Alerts Substance Reaction Status Criticality No Known Allergies Active No Inform ation Medications Medication Instructions Dosage Effective Dates (start - stop) Status Comments Medrol (Tyrone) 4 mg tablets in a dose pack take by po route Not Available - Active ATORVASTATIN CALCIUM (unknown strength) Not Available - Active DYRENIUM (unknown strength) Not Available - Active LISINOPRIL (unknown strength) Not Available - Active METOPROLOL TARTRATE (unknown strength) Not Available - Active ASPIRIN (unknown strength) Not Available - Active Procedures Procedure Date Office/Outpatient Visit,Est, Mod 2015 Office/Outpatient Visit,Est, Mod 2015 Office/Outpatient Visit,Est, Mod 2013 [place] [facility] [place] Exam Of Neck Spine, 4+ Views Neck Spine Fuse & Removal Addl 11 Addl Neck Spine Fusion Insert spine fix dev, ant, 2-3 seg Allograft, spine surg, structural Autograft, spine surgery, local 011 Allograft, spine surg, morselized Pre Op Office/outpatient visit, 011 X-ray exam of neck spine2-3 views Office/outpatient visit,est, mod 2010 Office/outpatient visit,new, [facility] [place] 2010 Advance Directives Directive Yes / No Effective Date File Name No Information Encounters Encounter Description Practice Location Reason(s) For Visit Diagnoses Date Provider Providers Copied on Encounter Office/Outpa tient Visit,Est, Mod [facility], [address], [place], [place], [id number], [place] tel:[phone] [facility] 8 6 Mehbod Nasreenr. [facility], [address], [place], [place], [id number], [place]. tel:[phone] Office/Outpa tient Visit,Est, Mod [facility], [address], [place], [place], [id number], [place] tel:[phone] [facility]erv[facility] 6 Eckryanni Dominguez. [address], [place], [place], [id number], [place]. tel:[phone] Office/Outpa tient Visit,Est, Mod Z [facility], [address] [facility], [place], [address], [place] tel:[phone] [facility] CERVICAL[facility] 0 4 Eckryanni Dominguez. [address], [place], [id number], [place]. tel:[phone] Referring Provider: Alfredo Rubio, [facility] [address] [place], [address]. tel:[phone] Office/Outpa tient Visit,New, Mod Z [facility], [address], [place], [address], [place] tel:[phone] [facility] No Information 0 4 Ecmilagros Alberto. [address], [place], [id number], [place]. tel:[phone] Referring Provider: Alfredo Rubio, [facility] [address] [place], [address]. tel:[phone] Z [facility], [address], [place], [address], [place] tel:[phone] [facility] No Information 3 1 No Information Referring Provider: Alfredo Rubio, [facility] [address] [place], [address]. tel:[phone] Pre Op Office/outpa tient visit, Z [facility], [address], [place], [address], [place] tel:[phone] [facility] No Information June-0 1 No Information Referring Provider: Alfredo Rubio, [facility] [address] [place], [address]. tel:[phone] Office/outpa tient visit,est, mod Z [facility], [address], [place], [address], [place] tel:[phone] [facility] No Information May-0 1 No Information Referring Provider: Alfredo Rubio, [facility] [address] [place], [address]. tel:[phone] Office/outpa tient visit,new, mod Z [facility], [address], [place], [address], [place] tel:[phone] [facility] No Information 0 1 No Information Referring Provider: Alfredo Rubio, [facility] [address] [place], [address]. tel:[phone] Family History Family Member Type Diagnosis Age At Onset Problem (finding) Problem (finding) Problem (finding) Problem (finding) Problem (finding) Payers Payer name Insurance type Covered green party ID Authoriza tion(s) No Information Social History [...] Order: Radiology Order barbie Complete 2+ Views ([id number]), Ordered on: Ordered History Of Present Illness Encounter Date Complaint History Of Prese nt Illness No Information Functional Status Date Functional Assessmen t No Information Instructions Date Instruction Additional Infor mation No Information Assessments Type Assessment Date assessment Cervicalgia Patient Care Teams Name Effective Dates (start - stop) Status Members No Information
--- OUTSIDE RECORDS SUMMARY | 2023-07-02 16:51 | XMS_ITS | Encounter Summary ---
Author Name Unknown Organization [place] Address [facility] [place] [address] Care Team Providers Care Welding Machine Operator Helper Arc Name Role Phone Alfredo Starr MD Primary Care Provider [phone] Elif Souza MD Unavailable Unavailable Encounter Details Date Type Department Care Team (Latest Contact Info) Description 04/27/2023 Travel Social History Tobacco Use Types Packs/Day [...] Info) Description 08/11/2023 1:30 PM CDT Appointment [facility] [place] [address] [place] [phone] Oseas Ta, RN 09/08/2023 1:30 PM CDT Appointment [facility] [place] [address] [place] [address] Oseas Ta, RN documented as of this encounter Visit Diagnoses Not on filedocumented in this encounter Care Teams Welding Machine Operator Helper Arc Relationship Specialty Start Date End Date Alfredo Starr MD PCP - General Family Practice 12/11/14 Elif Souza MD Resident Student in organized health care education/training program 12/11/14 documented as of this encounter
--- OUTSIDE RECORDS SUMMARY | 2023-07-02 16:51 | XMS_ITS | Encounter Summary ---
Author Name Unknown Organization [place] Address [facility] [place] [address] Care Team Providers Care Audio Visual Engineer Name Role Phone Alfredo Starr MD Primary Care Provider Elif Souza MD Unavailable Unavailable Encounter Details Date Type Department Care Team (Latest Contact Info) Description 06/15/2023 Travel Social History Tobacco Use Types Packs/Day [...] Info) Description 08/11/2023 1:30 PM CDT Appointment [facility] [place] [address] [place] [phone] Oseas Ta, RN 09/08/2023 1:30 PM CDT Appointment [facility] [place] [address] [place] [address] Oseas Ta, RN documented as of this encounter Visit Diagnoses Not on filedocumented in this encounter Care Teams Audio Visual Engineer Relationship Specialty Start Date End Date Alfredo Starr MD PCP - General Family Practice 12/11/14 Elif Souza MD Resident Student in organized health care education/training program 12/11/14 documented as of this encounter
--- OUTSIDE RECORDS SUMMARY | 2023-07-02 16:51 | XMS_ITS | Encounter Summary ---
Author Name Unknown Organization [facility] Address [address] [place] [address]. [place] [address] Care Team Providers Care Water Main Inspector Name Role Phone Alfredo Starr MD Primary Care Provider [phone] Elif Souza MD Unavailable Unavailable Reason for Visit * Reason Comments WOUND CARE Encounter Details Date Type Department Care Team (Late st Contact Info) Description 03/30/2023 1:29 PM AUTOMOBILE RELOCATION ENGINEER - 03/30/2023 11:59 PM AUTOMOBILE RELOCATION ENGINEER Hospital Encounter [facility] [address] [place] [address] Srinivasan Ruggiero MD Vascular, Vein, and Wound [address] [facility] [address] [place] [address] Non-healing surgical wound, subsequent encounter (Primary Dx); Right groin ulcer, with fat layer exposed (H) Discharge Disposition: Home or Self Care Social [...] Sign Reading Time Taken Comments Blood Pressure 117/65 03/30/2023 1:56 PM AUTOMOBILE RELOCATION ENGINEER Pulse 80 03/30/2023 1:56 PM AUTOMOBILE RELOCATION ENGINEER Temperature 36 ??C (96.8 ??F) 03/30/2023 1:56 PM AUTOMOBILE RELOCATION ENGINEER Respiratory Rate - - Oxygen Saturation - - Inhaled Oxygen Concentration - - Weight - - Height - - Body Mass Index - - documented in this encounter Discharge Instructions * Discharge Instructions* Evangelina Frey RN - 03/30/2023 1:59 PM AUTOMOBILE RELOCATION ENGINEER [place] 1940 A DME order was not completed because the patient declined the need for supplies Dressing changes outside of clinic are being performed by Patient Wound Dressing Change: Right Groin - Wash [...] your diet. Main Provider: Srinivasan Ruggiero M.D. March 30, 2023 Call us at [phone] if you have any questions about your [...] that on your patient satisfaction survey form [facility] will be sending you. It was [...] any billing related questions please call the [facility] Business office at [phone].The clinic staff does not handle billing related [...] that you may be asked to reschedule. MOBILE RELOCATION ENGINEER documented in this encounter Medications at Time of Discharge Medication Sig Dispensed Refills Start Date End Date GABAPENTIN PO metroNIDAZOLE (FLAGYL) 500 MG tabletIndications:Right groin ulcer, with fat layer exposed (H) Apply 1 tablet (500 mg) topically daily 90 tablet 03/02/2023 OXYCODONE HCL PO PANTOPRAZOLE SODIUM PO Take 40 mg by mouth WARFARIN SODIUM POIndications:1 Tab Wed-, 1/2 Tab on Wed documented as of this encounter Progress Notes * Srinivasan Ruggiero MD - 03/30/2023 1:49 PM CST Images from the original note were not included. Wound Clinic Note Visit date: 03/30/2023 Cheif Complaint: Tl Lugo is a 82 year old male had concerns including WOUND CARE. He has a right groin surgicalwound. HISTORY OF PRESENT ILLNESS: Tl Lugo reports the ulcer has been present since 2021. The wound began after a recent surgery and the incision did not heal normally. 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 He reports after this he also had radiation therapyto the area. I do not have any medical records about any of this care. On January 13, 2023 I biopsied the wound edge which did not show any evidence of malignancy. At his last clinic visit I had suggested that we try adding Flagyl powder to his bandage regiment. He reports that he did get the Flagyl pills and crush them up and powder and he applied this to the wound several times. Then he abruptly had a severe episode of epistaxis and he thought this might olvera interaction from the Flagyl and his Coumadin so he stopped taking the Flagyl. He reports that he does not want to use the Flagyl anymore and does not want to try any different bandage regimens. Since then he has been using the alginate and a dry dressing change once a day. He reports there isbeen little to no drainage from the area. There is been no difficulties with the dressing changes. The pateint denies fevers or chills. They report the pain from the wound has been 1/10 and has remained about the same recently. Today the patient reports maintaining a [...] Medication History: Current Outpatient Medications Medication Sig GABAPENTIN PO metroNIDAZOLE (FLAGYL) 500 MG tablet [...] noted in the HPI. PHYSICAL EXAMINATION: BP 117/65 Pulse 80 Temp 96.8 ??F (36 ??C) (Temporal) GENERAL: The patient overall appears [...] tissue Periwound: healthy intact skin The wound is substantially smaller today compared with his last clinic visit. Also see below for wound details: Circumferential volume measures: No data to display Ulceration(s)/Wound(s): Please see the media tab under the chart review for pictures of the wounds. Nursing staff removed dressings and cleansed wound. Wound (used by OP [facility] only) 08/11/22 1431 Right groin radiation skin reaction (Active) Thickness/Stage full thickness 03/30/23 1300 Base slough;epithelialization 03/30/23 1300 Periwound pink 03/30/23 1300 Periwound Temperature warm 03/30/23 1300 Periwound Skin Turgor soft 03/30/23 1300 Edges open 03/30/23 1300 Length (cm) 1.5 03/30/23 1300 Width (cm) 1 03/30/23 1300 Depth (cm) 0.3 03/30/23 1300 Wound (cm^2) 1.5 cm^2 03/30/23 1300 Wound Volume (cm^3) 0.45 cm^3 03/30/23 1300 Wound healing % -1566.67 03/30/23 1300 Drainage Characteristics/Odor sanguineous 03/30/23 1300 Drainage Amount moderate 03/30/23 1300 Care, Wound non-select wound debridement performed. 03/30/23 1300 No results for input(s): HGBA1C, A1C, EAG in the last 39889 hours. Invalid input(s): ULXVXILNG6B No results for input(s): ALBUMIN in the last 80859 hours. No sharp debridement performed today. ASSESSMENT: This is a 82 year old male with a right groin surgical wound. PLAN: We will bandage the right groin wound with alginate and dry gauze changed once a day or every otherday depending on the drainage. I have encouraged the patient to continue on their high protein diet to aid in wound healing. The patient will return to the wound clinic in 3-4 weeks. 20 minutes spent on the date of the encounter doing chart review, history and exam, documentation and further activities per the note, this time excludes any procedure time Srinivasan Ruggiero MD 03/30/2023 2:21 PM [facility] Vascular/Wound [phone] This note was electronically signed by Srinivasan Ruggiero MD Further instructions from your care team Tl Lugo 1940 A DME order was not completed because the patient declined the need for supplies Dressing changes outside of clinic are being performed by Patient Wound Dressing Change: Right Groin - Wash [...] your diet. Main Provider: Srinivasan Ruggiero M.D. March 30, 2023 Call us at [phone] if you have any questions about your [...] that on your patient satisfaction survey form [facility] will be sending you. It was [...] any billing related questions please call the [facility] Business office at [phone].The clinic staff does not handle billing related [...] you may be asked to reschedule. , MOBILE RELOCATION ENGINEER documented in this encounter Plan of Treatment Upcoming Encounters Date Type Department Care Team (Late st Contact Info) Description 08/11/2023 1:30 PM CDT Appointment [facility] [place] [address] [place] [address] Oseas Ta, RN 09/08/2023 1:30 PM CDT Appointment [facility] [place] [address] [place] [address] Oseas Ta, RN documented as of this encounter Visit Diagnoses Diagnosis Non-healing surgical wound, subsequent encounter- Primary Right groin ulcer, with fat layer exposed (H) documented in this encounter Care Teams Water Main Inspector Relationship Specialty Start Date End Date Alfredo Starr MD PCP - General Family Practice 12/11/14 Elif Souza MD Resident Student in organized health care education/training program 12/11/14 documented as of this encounter
--- OUTSIDE RECORDS SUMMARY | 2023-07-02 16:51 | XMS_ITS | Clinical Summary ---
Author Name Unknown Organization [facility] Address [place], [place] [address] Care Team Providers Care Cardiovascular Rn Name Role Phone Alfredo Starr MD Primary Care Provider [phone] Allergies Active Allergy Reactions Criticality Noted Date Comments Latex Rash 02/16/2014 Medications Medication Sig Dispensed Refills Start Date End Date Status fentaNYL 12 mcg/hr (DURAGESIC) 12 mcg/hr transdermal patch Apply 1 Patch on dry, clean, hairless skin every 72 hours. 5 Patch 0 04/16/2014 Active HYDROmorphone (DILAUDID) 1 mg/mL injection Inject 0.5-1 mg intravenous every 2 hours if needed for Pain. 0 04/16/2014 Active LORazepam (ATIVAN) 0.5 mg tab Take 1 tablet by mouth every 6 hours if needed for Anxiety or Sleep. 0 04/16/2014 Active gabapentin (NEURONTIN) 300 mg capsule Take 1 capsule by mouth 3 times daily. For phantom pain. Can uptitrate as warranted. 0 04/16/2014 Active HYDROmorphone 1 mg/mL inj Pain was well controlled here on dilaudid ELA TEACHER on following regimen: LOADING DOSE: 0.2 mg for 1 dose ELA TEACHER BOLUS DOSE: 0.2-0.3 mg LOCKOUT INTERVAL: 10 minutes CONTINUOUS INFUSION RATE: 0-0.4 mg/hr FOUR HOUR DOSE LIMIT: 6 mg 0 04/16/2014 Active atorvastatin (LIPITOR) 80 mg tablet Take 1 tablet by mouth at bedtime. 0 04/16/2014 Active metoprolol (LOPRESSOR) 25 mg tablet Take 1.5 tablets by mouth 2 times daily. For Coronary Artery Disease, hypertension. 0 04/16/2014 Activ e sennosides-docusat e, 8.6-50 mg, (SENOKOT S) 8.6-50 mg tablet Take 2 tablets by mouth 2 times daily. To prevent constipation on narcotics. Hold for diarrhea or loose stools. 0 04/16/2014 Active pantoprazole (PROTONIX) 40 mg delayed-release tablet Take 1 tablet by mouth 2 times daily before meals. 0 04/16/2014 Active bivalirudin (ANGIOMAX) 250 mg injection Target aPTT 60-80. Stop 1 hours before disarticulation surgery. Was on 0.055mg/kg/hr immediately prior to transfer. 0 04/16/2014 Active eptifibatide (INTEGRILIN) 0.75 mg/mL infusion Inject 90.8 mcg/min intravenous continuous. ( 1mcg/kg/min). Continue Integrelin drip at 1 mcg/kg/min. Stop at least 3 hours prior to surgery. Considering increasing to 2 mcg/kg/min after surgery. 0 04/16/2014 Active vancomycin (VANCOCIN) 1,000 mg injection Vancomycin 1500 mg Q 24 hrs for sepsis prophylaxis given lower extremity gangrene and residual tissue necrosis. 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 04/16/2014 Phantom limb pain 04/16/2014 Anemia due to acute blood loss 04/16/2014 Hypercoagulable state 03/30/2014 Sinus tachycardia 03/30/2014 Acute blood loss anemia 03/30/2014 Pulmonary embolism 03/30/2014 ACP (advance care planning) 03/12/2014 Overview: Patient has identified Health Care Agent(s): Yes Add Health Care Agents: Yes Health Care Agent(s): Primary Health Care Agent: Jo Pierce Relationship: Life Partner Secondary Health Care Agent: Relationship: Phone: Conservator: Relationship: Phone: Guardian: Relationship: Phone: Patient has Advance Care Plan Documents (Health Care Directive, POLST): Yes Advance Care Plan Documents: Health Care Directive Patient has identified Specific Treatment Preferences: Yes Specific Treatment Preferences: a.) Code Status: CPR/Attempt Resuscitation Post-operative pain 03/08/2014 Stenosis, cervical spine 03/07/2014 Overview: Left neck, shoulder and arm pain. Limited ROM Dysphagia 03/07/2014 Overview: Needs to eat small, frequent meals. Food gets stuck high in esophagus Left shoulder pain 06/02/2013 s/p left reverse total shoul matteo arthroplasty 03.17.2012 with Teddy King MD 06/02/2013 Rib cage dysfunction 06/02/2013 Tobacco use disorder 03/17/2012 HTN (hypertension) 03/17/2012 Rotator cuff disorder 03/17/2012 Overview: S/p reverse left total shoulder arthroplasty 03/17/12 PVD (peripheral vascular disease) 03/17/2012 Overview: [...] 1.4-1.5 Peripheral Vascular Disease with Claudication--s/p L fem-pop 3-15-10 05/06/2009 Cardiomyopathy , ischemic; old inf [place] 05/02/2009 Overview: Per preop, EF of 39% Claudication 11/23/2008 Nonspecific abnormal electrocardiogram (ECG) (EK G) 05/27/2007 Cardiomegaly 05/27/2007 Chronic systolic CHF (congestive heart failure) 05/27/2007 Immunizations Name Administration Dates Next Due Pneumococcal Poly,23-Valent (Pneumovax) 05/01/19 10 Family History Medical History Relation Name Comments Heart Disease Father @ 64 [facility] Mother Relation Name Status Comments Father Mother Social History Tobacco Use Types Packs/Day Years Used Date Smoking Tobacco: Some Days Cigars Last attempted to quit: 09/12/2008 Smokeless Tobacco: Never Comments:currently smokes 2 cigars daily, quit smoking cigarettes 10 years ago Alcohol Use Standard Drinks/Week Comments No 0 (1 standard drink = 0.6 oz pur e alcohol) 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/04) Sex and Gender Information Value Date Recorded Sex Assigned at Not on file Gender Identity Not on file Sexual Orientation Not on file Obstetrics History Last Filed Vital Signs Vital Sign Reading Time Taken Comments Blood Pressure 123/73 04/16/2014 2:19 PM NAIL POLISH BRUSH MACHINE FEEDER Pulse 115 04/16/2014 2:19 PM NAIL POLISH BRUSH MACHINE FEEDER Temperature 38.3 ??C (100.9 ??F) 04/16/2014 3:[address] Respiratory Rate 20 04/16/2014 2:19 PM NAIL POLISH BRUSH MACHINE FEEDER Oxygen Saturation 94% 04/16/2014 2:19 PM NAIL POLISH BRUSH MACHINE FEEDER Inhaled Oxygen Concentration - - Weight 86.1 kg (189 lb 13.1 oz) 04/16/2014 5:00 AM NAIL POLISH BRUSH MACHINE FEEDER Height 180.3 cm (5' 10.98) 04/02/2014 12:00 AM NAIL POLISH BRUSH MACHINE FEEDER Body Mass Index 26.49 04/02/2014 12:00 AM NAIL POLISH BRUSH MACHINE FEEDER Plan of Treatment Health Maintenance Due Date Last Done Comments Tdap 1951 Depression screening for age 12+ 1954 BMI (ht and wt on same day) for age 18+ 1960 Tetanus booster 1962 Zoster (shingles) series for age 50+ (1 of 2) 05/10/18 93 Pneumococcal series for age 65+ (2 of 2 - PCV) 011 04/30/2009 COVID-19 vaccine series ( - 2022- season) 3 Influenza for age 65+ 10/24/2023 Medical Devices Implanted Type Area Ragman Device Identifier Shelf Expiration Date Model / Serial / Lot [id number] Robinson [id number] [[id number]][[id number]] Implanted:Qty: 1 on 06/24/2010 at [facility] Explanted:at [facility] (Quantity not on file) Spine Medtronic 11/05/2012 [id number]# / [id number] / [id number] Robinson [id number] [[id number]][[id number]] Implanted:Qty: 1 on 06/24/2010 at [facility] Explanted:at [facility] (Quantity not on file) Spine Medtronic 11/05/[id number]# / [id number] / [id number] [id number] Progenix Dbm 1cc [[id number]][[id number]] Implanted:Qty: 1 on 06/24/2010 at [facility] Explanted:at [facility] (Quantity not on file) Spine Medtronic 11/28/2011 [id number]# / [id number] / Plate 42.5mm Zephir - [id number] Implanted:Qty: 1 on 06/24/2010 at [facility] N/A: Spine SOFAMOR DANEK [id number]# / / Screw Self Drilling 4.0x15mm - [id number] Implanted:Qty: 1 on 06/24/2010 at [facility] N/A: Spine SOFAMOR DANEK [id number]# / / Screw Self Drilling 3.5x15mm - [id number] Implanted:Qty: 4 on 06/24/2010 at [facility] N/A: Spine SOFAMOR DANEK [id number]# / / Screw Locking Fixed 4.93d92az - [id number] Implanted:Qty: 1 on 03/17/2012 at [facility] Left: Shoulder BIOMET 895606# / / [id number] Glenosphere 41mm Std Co Cr Comprehensive - [id number] Implanted:Qty: 1 on 03/17/2012 at [facility] Left: Shoulder BIOMET 006913# / / [id number] Screw 6.5x35mm Rev - [id number] Implanted:Qty: 1 on 03/17/2012 at [facility] Left: Shoulder BIOMET 067772# / / [id number] Bearing Humeral 44 -41 +3 Arcom Xl - [id number] Implanted:Qty: 1 on 03/17/2012 at [facility] Left: Shoulder BIOMET XL-086428# / / [id number] Stem Hum Sz13 Comprehensive Mini Co Cr - [id number] Implanted:Qty: 1 on 03/17/2012 at [facility] Left: Shoulder BIOMET 003402# / / [id number] Glenosphere Mini Baseplate Implanted:Qty: 1 on 03/17/2012 at [facility] Left: Shoulder [id number] / / [id number] Description:GLENOSPHERE MINI BASEPLATE Humeral Tray Implanted:Qty: 1 on 03/17/2012 at [facility] Left: Shoulder [id number] / / [id number] Description:HUMERAL TRAY Screw Locking 4.30l84mr Fixed - [id number] Implanted:Qty: 1 on 03/17/2012 at [facility] Left: Shoulder BIOMET 691171# / / [id number] Screw Locking Fixed 4.12d75ka - [id number] Implanted:Qty: 1 on 03/17/2012 at [facility] Left: Shoulder BIOMET 900074# / / [id number] Screw Locking Fixed 4.44s98dc - [id number] Implanted:Qty: 1 on 03/17/2012 at [facility] Left: Shoulder BIOMET 050721# / / [id number] Explanted Type Area Ragman Device Identifier Shelf Expiration Date Model / Serial / Lot Patch Vasc 0.8x8cm Xenosure Biological Pericardial - [id number] Explanted:Qty: 1 on 03/09/2014 at [facility] Right: Leg [employer] 0.8P8# / / [id number] Advance Directives Documents on File Type Date Recorded Patient Team Facilitator Expl anation Healthcare Directive 05/12/2009 Healthcare Directive 06/26/2010 * Full Code (Latest Code Status on File) Date Activated Date Inactivated Comments 04/16/2014 2:21 PM * Full Code Date Activated Date Inactivated Comments 03/07/2014 8:16 PM 04/16/2014 2:21 PM * Full Code Date Activated Date Inactivated Comments 03/07/2014 12:01 PM 03/07/2014 8:16 PM * Full Code Date Activated Date Inactivated Comments 02/28/2014 6:12 AM 02/28/2014 11:11 PM * Full Code Date Activated Date Inactivated Comments 03/17/2012 12:44 PM 03/19/2012 4:35 PM Care Teams Cardiovascular Rn Relationship Specialty Start Date End Date Alfredo Starr MD PCP - General 11/13/08
== END 2023-07-01 17:57 | disposition home or self-care (01) ==
LOC: AMB 07-02 16:48
PROVIDERS: PCP Family Medicine; Visit Provider Emergency Medicine
DX: S89.92XA Unspecified injury of left lower leg, initial encounter (principal); R53.1 Weakness; W07.XXXA Fall from chair, initial encounter; Y92.126 Garden or yard of nursing home as the place of occurrence of the external cause
CPT/HCPCS: A0998

== ENCOUNTER 2023-07-27 20:44 | Outpatient (CLI) | payer OTHER, SELFPAY ==
--- OUTSIDE RECORDS SUMMARY | 2023-07-31 19:56 | XMS_ITS | Referral Summary ---
Author Organization [place] Address [address] [facility] [place] [address] Care Team Providers Care Cardiology Manager Name Role Phone Alfredo Starr MD Primary Care Provider [phone] Elif Souza MD Unavailable Unavailable Encounters Date Type Department Care Team Description 06/15/2023 Travel 06/15/2023 1:14 PM CDT - 06/15/2023 11:59 PM CDT Hospital Encounter [facility] [place] [address] [place] [address] [address] [place] [address] Mellisa Hill PA-C Right groin ulcer, 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) Discharge Disposition: Home or Self Care from [...] Info) Description 08/11/2023 1:30 PM CDT Appointment [facility] [place] [address] [facility] [place] [address] Oseas Ta, RN 09/08/2023 1:30 PM CDT Appointment [facility] [place] [address] [place] [address] Oseas Ta, product management internship Procedure Name Priority Date/Time Associated Diagnosis Comments CTA CHEST WITH CONTRAST Routine 03/10/2014 8:06 PM ART MUSEUM AIDE from Last 3 Months or Most Recently Relevant to Health Maintenance Care Teams Cardiology Manager Relationship Specialty Start Date End Date Alfredo Starr MD PCP - General Family Practice 12/11/14 Elif Souza MD Resident Student in organized health care education/training program 12/11/14
--- OUTSIDE RECORDS SUMMARY | 2023-07-31 19:56 | XMS_ITS | Clinical Summary ---
Author Organization [facility] Address [place], [place] [address] Care Team Providers Care Molding And Trim Installer Name Role Phone Alfredo Starr MD Primary Care Provider [phone] Allergies Active Allergy Reactions Criticality Noted Date [...] Pain was well controlled here on dilaudid STUDENT DRIVING INSTRUCTOR on following regimen: LOADING DOSE: 0.2 mg for 1 dose STUDENT DRIVING INSTRUCTOR BOLUS DOSE: 0.2-0.3 mg LOCKOUT INTERVAL: 10 [...] 3-15-10 05/06/2009 Cardiomyopathy , ischemic; old inf [place] 05/02/2009 Overview: Per preop, EF of 39% [...] Comments Blood Pressure 123/73 04/16/2014 2:19 PM COVER CUTTER MACHINE Pulse 115 04/16/2014 2:19 PM COVER CUTTER MACHINE Temperature 38.3 ??C (100.9 ??F) 04/16/2014 3:[address] Respiratory Rate 20 04/16/2014 2:19 PM COVER CUTTER MACHINE Oxygen Saturation 94% 04/16/2014 2:19 PM COVER CUTTER MACHINE Inhaled Oxygen Concentration - - Weight 86.1 kg (189 lb 13.1 oz) 04/16/2014 5:00 AM COVER CUTTER MACHINE Height 180.3 cm (5' 10.98) 04/02/2014 12:00 AM COVER CUTTER MACHINE Body Mass Index 26.49 04/02/2014 12:00 AM COVER CUTTER MACHINE Plan of Treatment Health Maintenance Due Date Last Done Comments Tdap 1951 Depression screening for age 12+ 1954 BMI (ht and wt on same day) for age 18+ 1960 Tetanus booster 1962 Zoster (shingles) series for age 50+ (1 of 2) 05/10/18 93 Pneumococcal series for age 65+ (2 of 2 - PCV) 011 04/30/2009 COVID-19 vaccine series ( - 2022-24 season) 3 Influenza for age 65+ 10/24/2023 Medical Devices Implanted Type Area Algology Teacher Device Identifier Shelf Expiration Date Model / Serial / Lot [id number] Robinson [id number] [[id number]][[id number]] Implanted:Qty: 1 on 06/24/2010 at [facility] Explanted:at [facility] (Quantity not on file) Spine Medtronic 11/05/2012 [id number]# / [id number] / [id number] Robinson [id number] [[id number]][[id number]] Implanted:Qty: 1 on 06/24/2010 at [facility] Explanted:at [facility] (Quantity not on file) Spine Medtronic 11/05/2012 [id number]# / [id number] / [id number] tty Progenix Dbm 1cc [[id number]][[id number]] Implanted:Qty: 1 on 06/24/2010 at [facility] Explanted:at [facility] (Quantity not on file) Spine Medtronic 11/28/2011 991976# / [id number] / Plate 42.5mm Zephir - [id number] Implanted:Qty: 1 on 06/24/2010 at [facility] N/A: Spine SOFAMOR DANEK [id number]# / / Screw Self Drilling 4.0x15mm - [id number] Implanted:Qty: 1 on 06/24/2010 at [facility] N/A: Spine SOFAMOR DANEK [id number]# / / Screw Self Drilling 3.5x15mm - [id number] Implanted:Qty: 4 on 06/24/2010 at [facility] N/A: Spine SOFAMOR DANEK [id number]# / / Screw Locking Fixed 4.12o15iw - [id number] Implanted:Qty: 1 on 03/17/2012 at [facility] Left: Shoulder BIOMET 865290# / / [id number] Glenosphere 41mm Std Co Cr Comprehensive - [id number] Implanted:Qty: 1 on 03/17/2012 at [facility] Left: Shoulder BIOMET 656270# / / [id number] Screw 6.5x35mm Rev - [id number] Implanted:Qty: 1 on 03/17/2012 at [facility] Left: Shoulder BIOMET 641855# / / [id number] Bearing Humeral 44 -41 +3 Arcom Xl - [id number] Implanted:Qty: 1 on 03/17/2012 at [facility] Left: Shoulder BIOMET XL-704527# / / [id number] Stem Hum Sz13 Comprehensive Mini Co Cr - [id number] Implanted:Qty: 1 on 03/17/2012 at [facility] Left: Shoulder BIOMET 567149# / / [id number] Glenosphere Mini Baseplate Implanted:Qty: 1 on 03/17/2012 at [facility] Left: Shoulder [id number] / / [id number] Description:GLENOSPHERE MINI BASEPLATE Humeral Tray Implanted:Qty: 1 on 03/17/2012 at [facility] Left: Shoulder [id number] / / [id number] Description:HUMERAL TRAY Screw Locking 4.65v51ms Fixed - [id number] Implanted:Qty: 1 on 03/17/2012 at [facility] Left: Shoulder BIOMET 499315# / / [id number] Screw Locking Fixed 4.34g26uk - [id number] Implanted:Qty: 1 on 03/17/2012 at [facility] Left: Shoulder BIOMET 731771# / / [id number] Screw Locking Fixed 4.82s55rq - [id number] Implanted:Qty: 1 on 03/17/2012 at [facility] Left: Shoulder BIOMET 018380# / / [id number] Explanted Type Area Algology Teacher Device Identifier Shelf Expiration Date Model / Serial / Lot Patch Vasc 0.8x8cm Xenosure Biological Pericardial - [id number] Explanted:Qty: 1 on 03/09/2014 at [facility] Right: Leg [employer] 0.8P8# / / [id number] Advance Directives Documents on File Type Date Recorded Patient Fuse Assembler Expl anation Healthcare Directive 05/12/2009 Healthcare Directive [...] 12:44 PM 03/19/2012 4:35 PM Care Teams Molding And Trim Installer Relationship Specialty Start Date End Date Alfredo Starr MD PCP - General 11/13/08
--- OUTSIDE RECORDS SUMMARY | 2023-07-31 19:56 | XMS_ITS | Clinical Summary ---
Author Organization [place] Address [address] [facility] [place] [address] Care Team Providers Care Lead Python Developer Name Role Phone Alfredo Starr MD Primary Care Provider [phone] Elif Souza MD Unavailable Unavailable Allergies Active [...] 06/15/2023 11:59 PM CDT Hospital Encounter [facility] [place] [address] [phone] Mellisa Hill PA-C Right groin ulcer, 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) Discharge Disposition: Home or Self Care 06/15/2023 Travel from Last 3 Months Social History [...] Info) Description 08/11/2023 1:30 PM CDT Appointment [facility] [place] [address] [phone] Oseas Ta, RN 09/08/2023 1:30 PM CDT Appointment [facility] [place] [address] [phone] Oseas Ta, RN Health Maintenance Due Date [...] (once per calendar year) 2023 COVID-19 Vaccine ( season) 2023 02/05/2023, 07/01/2021, 02/06/2021, Additional history [...] CHEST WITH CONTRAST Routine 03/10/2014 8:06 PM FINAL BLOCK PRESS OPERATOR from Last 3 Months or Most Recently Relevant to Health Maintenance Care Teams Lead Python Developer Relationship Specialty Start Date End Date Alfredo Starr MD PCP - General Family Practice 12/11/14 Elif Souza MD Resident Student in organized health care education/training program 12/11/14
--- OUTSIDE RECORDS SUMMARY | 2023-07-31 19:56 | XMS_ITS | Encounter Summary ---
Author Organization [place] Address [address] [facility] [place] [address] Care Team Providers Care Recreational Facilities Motel Manager Name Role Phone Alfredo Starr MD Primary Care Provider [phone] Elif Souza MD Unavailable Unavailable Reason for Visit * Reason Comments WOUND CARE Encounter Details Date Type Department Care Team (Late st Contact Info) Description 06/15/2023 1:14 PM CDT - 06/15/2023 11:59 PM CDT Hospital Encounter [facility] [place] [address] [place] [address] Mellisa Hill PA-C [facility] [address] [facility] [address] Right groin ulcer, with fat [...] -Darleen will try and get records from [facility] to get a better history of your wound -Follow with a resource room special education teacher to look at lesions on head and face and left leg. [facility]: [phone]. Located in [place]. Could Call PCP for further recommendations in [facility]. Wound Dressing Change: Right Groin - Cleanse [...] PA-C June 15, 2023 Call us at [phone] if you have any questions about your [...] that on your patient satisfaction survey form [facility] will be sending you. It was a [...] any billing related questions please call the [facility] Business office at [phone].The clinic staff does not handle billing related [...] SODIUM POIndications:1 Tab Wed-, 1/2 Tab on Fri documented as of this encounter Progress Notes * Mellisa Hill PA-C - 06/15/2023 1:40 PM CDT Images from the original note were not included. [facility] ASSESSMENT: Full thickness ulcer [...] why. Will attempt to obtain records from [facility] to get better picture of the history of this area and whether or not he was radiated there. It is unclear why he would have radiation in this area if he has nohistory of skin cancer there. If sweating is part of the picture I would consider using drysol locally in an attempt to minimize this Recommended he see a resource room special education teacher for the suspicious lesions on his scalp, [...] for details. He states it was in [place] VITALS: BP 95/62 (BP Location: Left arm, [...] Skin Turgor soft 06/15/23 1317 Edges open 06/15/23 131 Length (cm) 4 06/15/23 1317 Width (cm) 3 06/15/231316 Depth (cm) 0.2 06/15/23 131 Wound (cm^2) 12 cm^2 06/15/23 131 Wound Volume (cm^3) 2.4 cm^3 06/15/23 131 Wound healing % -42019.33 06/15/23 131 Drainage Characteristics/Odor sanguineous 06/15/231316 Drainage Amount moderate [...] -Darleen will try and get records from [facility] to get a better history of your wound -Follow with a resource room special education teacher to look at lesions on head and face and left leg. [facility]: [phone]. Located in [place]. Could Call PCP for further recommendations in [facility]. Wound Dressing Change: Right Groin - Cleanse [...] PA-C June 15, 2023 Call us at [phone] if you have any questions about your [...] that [facility]. It was a [...] any billing related questions please call the [facility] Business office at [phone].The clinic staff does not handle billing related [...] Info) Description 08/11/2023 1:30 PM CDT Appointment [facility] [place] [address] [place] [phone] Oseas Ta RN 09/08/2023 1:30 PM CDT Appointment [facility] [place] [address] [place] [address] Oseas Ta, RN documented as of this encounter Visit Diagnoses Diagnosis Right groin ulcer, with fat layer exposed (H)- Primary documented in this encounter Care Teams Recreational Facilities Motel Manager Relationship Specialty Start Date End Date Alfredo Starr MD PCP - General Family Practice 12/11/14 Elif Souza MD Resident Student in organized health care education/training program 12/11/14 documented as of this encounter
--- OUTSIDE RECORDS SUMMARY | 2023-07-31 19:56 | XMS_ITS | Encounter Summary ---
Author Organization [place] Address [facility] [place] [address] Care Team Providers Care Dental Treatment Coordinator Name Role Phone Alfredo Starr MD Primary Care Provider [phone] Elif Souza MD Unavailable Unavailable Encounter Details [...] Info) Description 08/11/2023 1:30 PM CDT Appointment [facility] [place] [address] [place] [phone] Oseas Ta, RN 09/08/2023 1:30 PM CDT Appointment [facility] [place] [address] [place] [phone] Oseas Ta, RN documented as of this encounter Visit Diagnoses Not on filedocumented in this encounter Care Teams Dental Treatment Coordinator Relationship Specialty Start Date End Date Alfredo Starr MD PCP - General Family Practice 12/11/14 Elif Souza MD Resident Student in organized health care education/training program 12/11/14 documented as of this encounter
--- OUTSIDE RECORDS SUMMARY | 2023-07-31 19:56 | XMS_ITS | Encounter Summary ---
Author Organization [place] Address [facility] [place] [address] Care Team Providers Care Geology Teacher Name Role Phone Alfredo Starr MD Primary Care Provider [phone] Elif Souza MD Unavailable Unavailable Encounter Details [...] Info) Description 08/11/2023 1:30 PM CDT Appointment [facility] [place] [address] [place] [phone] Oseas Ta, RN 09/08/2023 1:30 PM CDT Appointment [facility] [place] [address] [place] [phone] Oseas Ta, RN documented as of this encounter Visit Diagnoses Not on filedocumented in this encounter Care Teams Geology Teacher Relationship Specialty Start Date End Date Alfredo Starr MD PCP - General Family Practice 12/11/14 Elif Souza MD Resident Student in organized health care education/training program 12/11/14 documented as of this encounter
--- OUTSIDE RECORDS SUMMARY | 2023-07-31 19:56 | XMS_ITS | Encounter Summary ---
Author Organization [place] Address [facility] [place] [address] Care Team Providers Care Knotter Hand Name Role Phone Alfredo Starr MD Primary Care Provider [phone] Elif Souza MD Unavailable Unavailable Reason for Visit * Reason Comments WOUND CARE Encounter Details Date Type Department Care Team (Late st Contact Info) Description 04/27/2023 12:57 PM [employer] - 04/27/2023 11:59 PM [employer] Hospital Encounter [facility] [address] [place] [address] Srinivasan Ruggiero MD Vascular, Vein, and Wound [address] [facility] [address] [place] [address] Right groin ulcer, with fat [...] Comments Blood Pressure 110/64 04/27/2023 1:10 PM [employer] Pulse 85 04/27/2023 1:10 PM [employer] Temperature 36.5 ??C (97.7 ??F) 04/27/2023 1:09 PM CS T Respiratory Rate - - Oxygen Saturation - - Inhaled Oxygen Concentration - - Weight - - Height - - Body Mass Index - - documented in this encounter Discharge Instructions * Discharge Instructions* Chinyere Santos RN - 04/27/2023 1:09 PM [employer] [place] 1940 A DME order [...] M.D. April 27, 2023 Call us at [phone] if you have any questions about your [...] that on your patient satisfaction survey form [facility] will be sending you. It was a [...] related questions please call the [facility] Business office at [phone].The clinic staff does not handle billing related [...] that you may be asked to reschedule. [employer] documented in this encounter Medications at Time [...] input(s): HGBA1C, A1C, EAG in the last 55360 hours. Invalid input(s): [id number] No results for input(s): ALBUMIN in the last 65706 hours. No sharp debridement performed today. ASSESSMENT: [...] the option of having him see a cut off saw tender metal to determine if any skin condition could [...] time Srinivasan Ruggiero MD 04/27/2023 1:43 PM [facility] Vascular/Wound [phone] This note was electronically signed by Srinivasan [...] M.D. April 27, 2023 Call us at [phone] if you have any questions about your [...] that on your patient satisfaction survey form [facility] will be sending you. It was a [...] related questions please call the [facility] Business office at [phone].The clinic staff does not handle billing related [...] you may be asked to reschedule. , [employer] documented in this encounter Plan of Treatment Upcoming Encounters Date Type Department Care Team (Late st Contact Info) Description 08/11/2023 1:30 PM CDT Appointment [facility] [place] [address] [facility] [address] [place] [phone] Oseas Ta, RN 09/08/2023 1:30 PM CDT Appointment [facility] Wound [facility] [address] [place] [address] Oseas Ta, RN documented as of this encounter Visit Diagnoses Diagnosis Right groin ulcer, with fat layer exposed (H)- Primary Non-healing surgical wound, subsequent encounter documented in this encounter Care Teams Knotter Hand Relationship Specialty Start Date End Date Alfredo Starr MD PCP - General Family Practice 12/11/14 Elif Souza MD Resident Student in organized health care education/training program 12/11/14 documented as of this encounter
--- OUTSIDE RECORDS SUMMARY | 2023-07-31 19:56 | XMS_ITS | Continuity of Care Document ---
Author Organization [facility] Address [address] [place] [address] Phone Care Team Providers Care Home Health Billing Specialist Name Role Phone Jonathan ALVAREZ, Amivenancio Unavailable [...] 2015 Office/Outpatient Visit,Est, Mod 2013 Office/Outpatient Visit,New, [facility] [place] 2013 X-Ray Exam Of Neck Spine, 4+ Views Neck Spine Fuse & Removal Addl 11 Addl Neck Spine Fusion Insert spine fix dev, ant, 2-3 seg Allograft, spine surg, structural Autograft, spine surgery, local 011 Allograft, spine surg, morselized Pre Op Office/outpatient visit, 011 X-ray exam of neck spine2-3 views Office/outpatient visit,est, mod 2010 Office/outpatient visit,new, [facility] 2010 Advance Directives Directive Yes / No Effective Date File Name No Information Encounters Encounter Description Practice Location Reason(s) For Visit Diagnoses Date Provider Providers Copied on Encounter Office/Outpa tient Visit,Est, Mod [facility], [address], [place], [place], [id number], [place] tel:[phone] [facility] 6 Mehbod Nasreenr. [facility], [address], [place], [place], [id number], [place]. tel:[phone] Office/Outpa tient Visit,Est, Mod [facility], [address], [place], [place], [id number], [place] tel:[phone] [facility]erv[facility] 6 Eckryanni Alberto. [address], [place], [place], [id number], [place]. tel:[phone] Office/Outpa tient Visit,Est, Mod Z [facility] [place], [address], [place], [address], [place] tel:[phone] [facility] CERVICALGIA 0 4 Eckryanni Alberto. [address], [place], [address], [place]. tel:[phone] Referring Provider: Alfredo Rubio, [facility] [address] [place], [address]. tel:[phone] Office/Outpa tient Visit,New, Mod Z [facility], [address], [place], [address], [place] tel:[phone] [facility] No Information 0 4 Ecmilagros Dominguez. [address] [place] [address], [place], [id number], [place]. tel:[phone] Referring Provider: Alfredo Rubio, [facility] [address] [place], [address]. tel:[phone] Z [facility], [address], [place], [address], [place] tel:[phone] [facility] No Information 1 No Information Referring Provider: Alfredo Rubio, [facility] [address] [place], [address]. tel:[phone] Pre Op Office/outpa tient visit, Z [facility], [address], [place], [address], [place] tel:[phone] [facility] No Information June-0 1 No Information Referring Provider: Alfredo Rubio, [facility] [address] [place], [address]. tel:[phone] Office/outpa tient visit,est, mod Z [facility], [address], [place], [address], [place] tel:[phone] [facility] No Information 0 1 No Information Referring Provider: Alfredo Rubio, [facility] [address] [place], [address]. tel:[phone] Office/outpa tient visit,new, mod Z [facility], [address], [place], [address], [place] tel:[phone] [facility] No Information 1 No Information Referring Provider: Alfredo Rubio, [facility] [address] [place], [address]. tel:[phone] Family History Family Member Type Diagnosis Age At Onset Problem (finding) Problem (finding) Problem (finding) Problem (finding) Problem (finding) Payers Payer name Insurance type Covered constitution party ID Authoriza tion(s) No Information Social [...] Order: Radiology Order barbie Complete 2+ Views ([id number]), Ordered on: Ordered History Of Present Illness Encounter Date Complaint History Of Prese nt Illness No Information Functional Status Date Functional Assessmen t No Information Instructions Date Instruction Additional Infor mation No Information Assessments Type Assessment Date assessment Cervicalgia Patient Care Teams Name Effective Dates (start - stop) Status Members No Information
== END 2023-07-27 20:45 | disposition home or self-care (01) ==
PROVIDERS: PCP Family Medicine; Visit Provider Emergency Medicine
DX: R53.1 Weakness (principal)

== ENCOUNTER 2023-08-08 20:50 | Outpatient (CLI) | payer OTHER, SELFPAY ==
--- OUTSIDE RECORDS SUMMARY | 2023-08-10 23:02 | XMS_ITS | Clinical Summary ---
Author Organization [place] Address [address] [facility] [place] [address] Care Team Providers Care Fresco Artist Name Role Phone Alfredo Starr MD Primary Care Provider [phone] Elif Souza MD Unavailable Unavailable Allergies Active [...] 06/15/2023 11:59 PM CDT Hospital Encounter [facility] [place] [address] [place] [phone] Mellisa Hill PA-C Right groin ulcer, with [...] Info) Description 08/11/2023 1:30 PM CDT Appointment [facility] Wound [place] [address] [place] [phone] Oseas Ta, CABLE FORMER GRINDING OPERATOR [address] [place] [address] 09/08/2023 1:30 PM CDT Appointment [facility] Wound [facility] [address] [place] [phone] Oseas Ta, CABLE FORMER GRINDING OPERATOR [address] [place] [address] Health Maintenance Due Date Last Done Comments [...] CHEST WITH CONTRAST Routine 03/10/2014 8:06 PM COMPUTER PROGRAMMING MANAGER from Last 3 Months or Most Recently Relevant to Health Maintenance Care Teams [place]co Artist Relationship Specialty Start Date End Date Alfredo Starr MD PCP - General Family Practice 12/11/14 Elif Souza MD Resident Student in organized health care education/training program 12/11/14
--- OUTSIDE RECORDS SUMMARY | 2023-08-10 23:02 | XMS_ITS | Encounter Summary ---
Author Organization [place] Address [facility] [place] [address] Care Team Providers Care Refrigeration Engineering Teacher Name Role Phone Alfredo Starr MD Primary Care Provider [phone] Elif Souza MD Unavailable Unavailable Encounter Details [...] Info) Description 08/11/2023 1:30 PM CDT Appointment [facility] [place] [address] [place] [phone] Oseas Ta, EDUCATIONAL/DEVELOPMENT ASSISTANT TOOL ROOM SUPERVISOR [address] [place] [address] 09/08/2023 1:30 PM CDT Appointment [facility] [place] [address] [place] [phone] Oseas Ta, EDUCATIONAL/DEVELOPMENT ASSISTANT TOOL ROOM SUPERVISOR [address] [place] [address] documented as of this encounter Visit Diagnoses Not on filedocumented in this encounter Care Teams Refrigeration Engineering Teacher Relationship Specialty Start Date End Date Alfredo Starr MD PCP - General Family Practice 12/11/14 Elif Souza MD Resident Student in organized health care education/training program 12/11/14 documented as of this encounter
--- OUTSIDE RECORDS SUMMARY | 2023-08-10 23:02 | XMS_ITS | Referral Summary ---
Author Organization [place] Address [address] [facility] [place] [address] Care Team Providers Care Dispenser Operator Name Role Phone Alfredo Starr MD Primary Care Provider [phone] Elif Souza MD Unavailable Unavailable Encounters Date Type Department Care Team Description 06/15/2023 Travel 06/15/2023 1:14 PM CDT - 06/15/2023 11:59 PM CDT Hospital Encounter [facility] [place] [address] [place] [address] [address] [place] [address] Mellisa Hill PA-C Right groin [...] by mouth Active WARFARIN SODIUM POIndications:1 Tab Mon-, 1/2 Tab on Wed Active metroNIDAZOLE (FLAGYL) [...] CDT Appointment [facility] [place] [address] [place] [phone] Oseas Ta, CERTIFIED PEDORTHOTIST [place]GSHEAD SALVAGE [address] [place] [address] 09/08/2023 1:30 PM CDT Appointment [facility] [place] [address] [place] [phone] Oseas Ta, CERTIFIED PEDORTHOTIST [place] [employer]VAGE [address] [place] [address] Procedures Procedure Name Priority Date/Time Associated Diagnosis Comments CTA CHEST WITH CONTRAST Routine 03/10/2014 8:06 PM ANALYTICAL CONSULTANT from Last 3 Months or Most Recently Relevant to Health Maintenance Care Teams Dispenser Operator Relationship Specialty Start Date End Date Alfredo Starr MD PCP - General Family Practice 12/11/14 Elif Souza MD Resident Student in organized health care education/training program 12/11/14
--- OUTSIDE RECORDS SUMMARY | 2023-08-10 23:03 | XMS_ITS | Encounter Summary ---
Author Organization [place] Address [address] [facility] [place] [address] Care Team Providers Care Blind Hanger Name Role Phone Alfredo Starr MD Primary Care Provider Elif Souza MD Unavailable Unavailable Reason for Visit * Reason Comments WOUND CARE Encounter Details Date Type Department Care Team (Late st Contact Info) Description 06/15/2023 1:14 PM CDT - 06/15/2023 11:59 PM CDT Hospital Encounter [facility] [place] [address] [place] [address] Mellisa Hill PA-C [facility] [address] [place] [address] Right groin ulcer, with fat [...] -Darleen will try and get records from [facility] to get a better history of your wound -Follow with a karate instructor to look at lesions on head and face and left leg. [facility] [phone]. Located in [place]. Could Call PCP for further recommendations in [facility]. Wound Dressing Change: Right Groin - [...] PA-C June 15, 2023 Call us at [phone] if you have any questions about your [...] that on your patient satisfaction survey form [facility] will be sending you. It was [...] any billing related questions please call the [facility] office at [phone].The clinic staff does not handle billing related [...] from the original note were not included. [facility] ASSESSMENT: Full thickness ulcer [...] why. Will attempt to obtain records from [facility] to get better picture of the history of this area and whether or not he was radiated there. It is unclear why he would have radiation in this area if he has nohistory of skin cancer there. If sweating is part of the picture I would consider using drysol locally in an attempt to minimize this Recommended he see a karate instructor for the suspicious lesions on his scalp, [...] for details. He states it was in [place] VITALS: BP 95/62 (BP Location: Left arm, [...] 2.4 cm^3 06/15/23 131 Wound healing % -35402.33 06/15/23 131 Drainage Characteristics/Odor sanguineous 06/15/231316 Drainage [...] -Darleen will try and get records from [facility] to get a better history of your wound -Follow with a karate instructor to look at lesions on head and face and left leg. [facility] [phone]. Located in [place]. Could Call PCP for further recommendations in [facility]. Wound Dressing Change: Right Groin - [...] PA-C June 15, 2023 Call us at [phone] if you have any questions about your [...] that [facility]. It was a [...] any billing related questions please call the [facility] office at [phone].The clinic staff does not handle billing related [...] Info) Description 08/11/2023 1:30 PM CDT Appointment [facility] [place] [address] [place] [id number] Oseas Ta, RADIOLOGIST SHOT POLISHER AND INSPECTOR [address] [place] [address] 09/08/2023 1:30 PM CDT Appointment [facility] [place] [address] [place] [id number] Oseas Ta, RADIOLOGIST SHOT POLISHER AND INSPECTOR [address] [place] [id number] documented as of this encounter Visit Diagnoses Diagnosis Right groin ulcer, with fat layer exposed (H)- Primary documented in this encounter Care Teams Blind Hanger Relationship Specialty Start Date End Date Alfredo Starr MD PCP - General Family Practice 12/11/14 Elif Souza MD Resident Student in organized health care education/training program 12/11/14 documented as of this encounter
--- OUTSIDE RECORDS SUMMARY | 2023-08-10 23:03 | XMS_ITS | Clinical Summary ---
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: LOADING DOSE: 0.2 mg for 1 dose STREETCAR REPAIRER HELPER BOLUS DOSE: 0.2-0.3 mg LOCKOUT INTERVAL: [...] 3-15-10 05/06/2009 Cardiomyopathy , ischemic; old inf [place] 05/02/2009 Overview: Per preop, EF of 39% [...] Comments Blood Pressure 123/73 04/16/2014 2:19 PM DOMESTIC FREIGHT FORWARDER Pulse 115 04/16/2014 2:19 PM DOMESTIC FREIGHT FORWARDER Temperature 38.3 ??C (100.9 ??F) 04/16/2014 3:[address] Respiratory Rate 20 04/16/2014 2:19 PM DOMESTIC FREIGHT FORWARDER Oxygen Saturation 94% 04/16/2014 2:19 PM DOMESTIC FREIGHT FORWARDER Inhaled Oxygen Concentration - - Weight 86.1 kg (189 lb 13.1 oz) 04/16/2014 5:00 AM DOMESTIC FREIGHT FORWARDER Height 180.3 cm (5' 10.98) 04/02/2014 12:00 AM DOMESTIC FREIGHT FORWARDER Body Mass Index 26.49 04/02/2014 12:00 AM DOMESTIC FREIGHT FORWARDER Plan of Treatment Health Maintenance Due Date [...] 65+ 10/24/2023 Medical Devices Implanted Type Area Groundskeeping Yardman Device Identifier Shelf Expiration Date Model / Serial / Lot [id number] [[id number]][[id number]] Implanted:Qty: 1 on 06/24/2010 at [facility] Explanted:at [facility] (Quantity not on file) Spine Medtronic 11/05/2012 710393# / [id number] / [id number] [[id number]] Implanted:Qty: 1 on 06/24/2010 at [facility] Explanted:at [facility] (Quantity not on file) Spine Medtronic 11/05/2012 263200# / [id number] / [id number] tty Progenix Dbm 1cc [[id number]][[id number]] Implanted:Qty: 1 on 06/24/2010 at [facility] Explanted:at [facility] (Quantity not on file) Spine Medtronic 11/28/2011 132551# / [id number] / Plate 42.5mm Zephir - [id number] Implanted:Qty: 1 on 06/24/2010 at [facility] N/A: Spine SOFAMOR DANEK [id number]# / / Screw Self Drilling 4.0x15mm - [id number] Implanted:Qty: 1 on 06/24/2010 at [facility] N/A: Spine SOFAMOR DANEK [id number]# / / Screw Self Drilling 3.5x15mm - [id number] Implanted:Qty: 4 on 06/24/2010 at [facility] N/A: Spine SOFAMOR DANEK [id number]# / / Screw Locking Fixed 4.29m85ts - [id number] Implanted:Qty: 1 on 03/17/2012 at [facility] Left: Shoulder BIOMET 935065# / / [id number] Glenosphere 41mm Std Co Cr Comprehensive - [id number] Implanted:Qty: 1 on 03/17/2012 at [facility] Left: Shoulder BIOMET 352103# / / [id number] Screw 6.5x35mm Rev - [id number] Implanted:Qty: 1 on 03/17/2012 at [facility] Left: Shoulder BIOMET 586088# / / [id number] Bearing Humeral 44 -41 +3 Arcom Xl - [id number] Implanted:Qty: 1 on 03/17/2012 at [facility] Left: Shoulder BIOMET [id number]# / / [id number] Stem Hum Sz13 Comprehensive Mini Co Cr - [id number] Implanted:Qty: 1 on 03/17/2012 at [facility] Left: Shoulder BIOMET 751514# / / [id number] Glenosphere Mini Baseplate Implanted:Qty: 1 on 03/17/2012 at [facility] Left: Shoulder [id number] / / [id number] Description:GLENOSPHERE MINI BASEPLATE Humeral Tray Implanted:Qty: 1 on 03/17/2012 at [facility] Left: Shoulder [id number] / / [id number] Description:HUMERAL TRAY Screw Locking 4.64l32uf Fixed - [id number] Implanted:Qty: 1 on 03/17/2012 at [facility] Left: Shoulder BIOMET 269874# / / [id number] Screw Locking Fixed 4.51a54dv - [id number] Implanted:Qty: 1 on 03/17/2012 at [facility] Left: Shoulder BIOMET 373915# / / [id number] Screw Locking Fixed 4.86j23kb - [id number] Implanted:Qty: 1 on 03/17/2012 at [facility] Left: Shoulder BIOMET 093915# / / [id number] Explanted Type Area Groundskeeping Yardman Device Identifier Shelf Expiration Date Model / Serial / Lot Patch Vasc 0.8x8cm Xenosure Biological Pericardial - [id number] Explanted:Qty: 1 on 03/09/2014 at [facility] Right: Leg [employer] 0.8P8# / / [id number] Advance Directives Documents on File Type Date Recorded Patient Supervisor Beehive Kiln Expl anation Healthcare Directive 05/12/2009 Healthcare Directive [...] 12:44 PM 03/19/2012 4:35 PM Care Teams Metal Sprayer Production Relationship Specialty Start Date End Date Alfredo Starr MD PCP - General 11/13/08
--- OUTSIDE RECORDS SUMMARY | 2023-08-10 23:03 | XMS_ITS | Continuity of Care Document ---
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 Name Role Phone Jonathan ALVAREZ, Amivenancio Unavailable Unavailable Allergies, Adverse Reactions, Alerts Substance Reaction Status Criticality No Known Allergies Active No Inform ation Medications Medication Instructions Dosage Effective Dates (start - stop) Status Comments Medrol (Tyrone) 4 mg tablets in a dose pack take by po route Not Available - Active METOPROLOL TARTRATE (unknown strength) Not Available - Active LISINOPRIL (unknown strength) Not Available - Active DYRENIUM (unknown strength) Not Available - Active ATORVASTATIN CALCIUM (unknown strength) Not Available - Active ASPIRIN (unknown strength) Not Available - Active Procedures Procedure Date Office/Outpatient Visit,Est, Mod 2015 Office/Outpatient Visit,Est, Mod 2015 Office/Outpatient Visit,Est, Mod 2013 Office/Outpatient Visit,New, [facility] 2013 X-Ray Exam Of Neck Spine, 4+ Views Neck Spine Fuse & Removal Addl 11 Addl Neck Spine Fusion Insert spine fix dev, ant, 2-3 seg Allograft, spine surg, structural Autograft, spine surgery, local 011 Allograft, spine surg, morselized Pre Op Office/outpatient visit, 011 X-ray exam of neck spine2-3 views Office/outpatient visit,est, mod 2010 Office/outpatient visit,new, [facility] 2010 Advance Directives Directive Yes / No Effective Date File Name No Information Encounters Encounter Description Practice Location Reason(s) For Visit Diagnoses Date Provider Providers Copied on Encounter Office/Outpa tient Visit,Est, Mod [facility], [address], [place], [place], [id number], [place] tel:[phone] [facility] 6 Mehbod Nasreenr. [facility], [address], [place], [place], [id number], [place]. tel:[phone] Office/Outpa tient Visit,Est, Mod [facility], [address], [place], [place], [id number], [place] tel:[phone] [facility] 6 Eckryanni Alberto. [address], [place], [place], [id number], [place]. tel:[phone] Office/Outpa tient Visit,Est, Mod Z [facility], [address], [place], [address], [place] tel:[phone] [facility] 0 4 Eckryanni Alberto. [address], [place], [id number], [place]. tel:[phone] Referring Provider: Alfredo Rubio, [facility] [address] [place], [address]. tel:[phone] Office/Outpa tient Visit,New, Mod Z [facility], [address], [place], [address], [place] tel:[phone] [facility] No Information 0 4 Ecmilagros Dominguez. [address] [place] [address], [place], [id number], [place]. tel:[phone] Referring Provider: Alfredo Rubio, [facility] [address] [place], [address]. tel:[phone] Z [facility], [address], [place], [address], [place] tel:[phone] [facility] No Information 1 No Information Referring Provider: Alfredo Rubio, [facility] [address] [place], [address]. tel:[phone] Pre Op Office/outpa tient visit, Z [facility], [address], [place], [address], [place] tel:[phone] [employer] No Information June-0 1 No Information Referring Provider: Alfredo Rubio, [facility] [address] [place], [address]. tel:[phone] Office/outpa tient visit,est, mod Z [facility], [address], [place], [address], [place] tel:[phone] [facility] No Information 0 1 No Information Referring Provider: Alfredo Rubio, [facility] [address] [place], [address]. tel:[phone] Office/outpa tient visit,new, mod Z [facility], [address], [place], [address], [place] tel:[phone] [facility] No Information 1 No Information Referring Provider: Alfredo Rubio, [facility] [address] [place], [address]. tel:[phone] Family History Family Member Type Diagnosis Age At Onset Problem (finding) Problem (finding) Problem (finding) Problem (finding) Problem (finding) Payers Payer name Insurance type Covered libertarian ID Authoriza tion(s) No Information Social History [...] Order: Radiology Order barbie Complete 2+ Views ([id number]), Ordered on: Ordered History Of Present Illness Encounter Date Complaint History Of Prese nt Illness No Information Functional Status Date Functional Assessmen t No Information Instructions Date Instruction Additional Infor mation No Information Assessments Type Assessment Date assessment Cervicalgia Patient Care Teams Name Effective Dates (start - stop) Status Members No Information
== END 2023-08-08 20:51 | disposition home or self-care (01) ==
LOC: AMB 08-10 23:00
PROVIDERS: PCP Family Medicine; Visit Provider Family Medicine
DX: R53.1 Weakness (principal)
CPT/HCPCS: A0998

== ENCOUNTER 2023-08-11 16:48 | Outpatient (CLI) | payer OTHER, SELFPAY ==
--- OUTSIDE RECORDS SUMMARY | 2023-08-14 06:09 | XMS_ITS | Clinical Summary ---
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 05/02/2009 Overview: Per preop, EF of 39% [...] Comments Blood Pressure 123/73 04/16/2014 2:19 PM DUDE RANCH MANAGER Pulse 115 04/16/2014 2:19 PM DUDE RANCH MANAGER Temperature 38.3 ??C (100.9 ??F) 04/16/2014 3:[address] Respiratory Rate 20 04/16/2014 2:19 PM DUDE RANCH MANAGER Oxygen Saturation 94% 04/16/2014 2:19 PM DUDE RANCH MANAGER Inhaled Oxygen Concentration - - Weight 86.1 kg (189 lb 13.1 oz) 04/16/2014 5:00 AM DUDE RANCH MANAGER Height 180.3 cm (5' 10.98) 04/02/2014 12:00 AM DUDE RANCH MANAGER Body Mass Index 26.49 04/02/2014 12:00 AM DUDE RANCH MANAGER Plan of Treatment Health Maintenance Due [...] 65+ 10/24/2023 Medical Devices Implanted Type Area [employer] Lawyer Device Identifier Shelf Expiration Date Model / Serial / Lot [id number] [[id number]][[id number]] Implanted:Qty: 1 on 06/24/2010 at [facility] Explanted:at [facility] (Quantity not on file) Spine Medtronic 11/05/2012 [id number]# / [id number] / [id number] [[id number]][[id number]] Implanted:Qty: 1 on 06/24/2010 at [facility] Explanted:at [facility] (Quantity not on file) Spine Medtronic 11/05/2012 [id number]# / [id number] / [id number] tty Progenix Dbm 1cc [[id number]][[id number]] Implanted:Qty: 1 on 06/24/2010 at [facility] Explanted:at [facility] (Quantity not on file) Spine Medtronic 11/28/2011 [id number]# / [id number] / Plate 42.5mm Zephir - [id number] Implanted:Qty: 1 on 06/24/2010 at [facility] N/A: Spine SOFAMOR DANEK [id number]# / / Screw Self Drilling 4.0x15mm - [id number] Implanted:Qty: 1 on 06/24/2010 at [facility] N/A: Spine SOFAMOR DANEK [id number]# / / Screw Self Drilling 3.5x15mm - [id number] Implanted:Qty: 4 on 06/24/2010 at [facility] N/A: Spine SOFAMOR DANEK [id number]# / / Screw Locking Fixed 4.82l01ra - [id number] Implanted:Qty: 1 on 03/17/2012 at [facility] Left: Shoulder BIOMET [id number]# / / [id number] Glenosphere 41mm Std Co Cr Comprehensive - [id number] Implanted:Qty: 1 on 03/17/2012 at [facility] Left: Shoulder BIOMET 559981# / / [id number] Screw 6.5x35mm Rev - [id number] Implanted:Qty: 1 on 03/17/2012 at [facility] Left: Shoulder BIOMET 612747# / / [id number] Bearing Humeral 44 -41 +3 Arcom Xl - [id number] Implanted:Qty: 1 on 03/17/2012 at [facility] Left: Shoulder BIOMET XL-803729# / / [id number] Stem Hum Sz13 Comprehensive Mini Co Cr - [id number] Implanted:Qty: 1 on 03/17/2012 at [facility] Left: Shoulder BIOMET 328287# / / [id number] Glenosphere Mini Baseplate Implanted:Qty: 1 on 03/17/2012 at [facility] Left: Shoulder [id number] / / [id number] Description:GLENOSPHERE MINI BASEPLATE Humeral Tray Implanted:Qty: 1 on 03/17/2012 at [facility] Left: Shoulder [id number] / / [id number] Description:HUMERAL TRAY Screw Locking 4.21h30fn Fixed - [id number] Implanted:Qty: 1 on 03/17/2012 at [facility] Left: Shoulder BIOMET 494821# / / [id number] Screw Locking Fixed 4.25s01bs - [id number] Implanted:Qty: 1 on 03/17/2012 at [facility] Left: Shoulder BIOMET 263366# / / [id number] Screw Locking Fixed 4.26i88wu - [id number] Implanted:Qty: 1 on 03/17/2012 at [facility] Left: Shoulder BIOMET 394435# / / [id number] Explanted Type [employer] Lawyer Device Identifier Shelf Expiration Date Model / Serial / Lot Patch Vasc 0.8x8cm Xenosure Biological Pericardial - [id number] Explanted:Qty: 1 on 03/09/2014 at [facility] Right: Leg Lem[employer] 0.8P8# / / [id number] Advance Directives Documents on File Type Date Recorded Patient Preparation Operator Expl anation Healthcare Directive 05/12/2009 Healthcare Directive [...] 12:44 PM 03/19/2012 4:35 PM Care Teams Hyster Machine Operator Relationship Specialty Start Date End Date Alfredo Starr MD PCP - General 11/13/08
--- OUTSIDE RECORDS SUMMARY | 2023-08-14 06:09 | XMS_ITS | Clinical Summary ---
Author Organization [place] Address [address] [facility] [place] [address] Care Team Providers Care Experimental Preflight Mechanic Name Role Phone Alfredo Starr MD Primary Care Provider [phone] Elif Souza MD Unavailable Unavailable Allergies Active [...] 06/15/2023 11:59 PM CDT Hospital Encounter [facility] [place] [address] [place] [...] Description 09/08/2023 1:30 PM CDT Appointment [facility] [place] [address] [place] [phone] Oseas Ta, SALESFORCE ADMINISTRATOR MANAGER OF APPLICATIONS DEVELOPMENT [address] [place] [address] Health Maintenance Due Date Last Done Comments [...] CHEST WITH CONTRAST Routine 03/10/2014 8:06 PM CHARGE MASTER COORDINATOR from Last 3 Months or Most Recently Relevant to Health Maintenance Care Teams Experimental Preflight Mechanic Relationship Specialty Start Date End Date Alfredo Starr MD PCP - General Family Practice 10/20/15 Elif Souza MD Resident Student in organized health care education/training program 12/11/14
--- OUTSIDE RECORDS SUMMARY | 2023-08-14 06:09 | XMS_ITS | Encounter Summary ---
Author Organization [place] Address [address] [facility] [place] [address] Care Team Providers Care Final Assembler Name Role Phone Alfredo Starr MD Primary Care Provider [phone] Elif Souza MD Unavailable Unavailable Encounter Details [...] Info) Description 09/08/2023 1:30 PM CDT Appointment [facility] [place] [id number] [facility] [address] [place] [phone] Oseas Ta, SINGLE ENDING MACHINE OPERATOR BANANA EXPERT [address] [place] [address] documented as of this encounter Visit Diagnoses Not on filedocumented in this encounter Care Teams Final Assembler Relationship Specialty Start Date End Date Alfredo Starr MD PCP - General Family Practice 12/11/14 Elif Souza MD Resident Student in organized health care education/training program 12/11/14 documented as of this encounter
--- OUTSIDE RECORDS SUMMARY | 2023-08-14 06:09 | XMS_ITS | Continuity of Care Document ---
Author Organization [facility] Address [address] [place] [address] Phone Care Team Providers Care Glass Breaker Name Role Phone Jonathan ALVAREZ, Amivenancio Unavailable [...] 2015 Office/Outpatient Visit,Est, Mod 2013 Office/Outpatient Visit,New, [facility] 2013 X-Ray Exam Of Neck Spine, 4+ Views Neck Spine Fuse & Removal Addl 11 Addl Neck Spine Fusion Insert spine fix dev, ant, 2-3 seg Allograft, spine surg, structural Autograft, spine surgery, local 011 Allograft, spine surg, morselized Pre Op Office/outpatient visit, 011 X-ray exam of neck spine2-3 views Office/outpatient visit,est, mod 2010 Office/outpatient visit,new, [facility] 2010 Advance Directives Directive Yes / No Effective Date File Name No Information Encounters Encounter Description Practice Location Reason(s) For Visit Diagnoses Date Provider Providers Copied on Encounter Office/Outpa tient Visit,Est, Mod [facility], [address], [place], [place], [id number], [place] tel:[phone] [facility] 6 Mehbod Nasreenr. [facility], [address], [place], [place], [id number], [place]. tel:[phone] Office/Outpa tient Visit,Est, Mod [facility], [address], [place], [place], [id number], [place] tel:[phone] [facility]erv[facility] 6 Eckryanni Alberto. [address], [place], [place], [id number], [place]. tel:[phone] Office/Outpa tient Visit,Est, Mod [facility] [place], [address], [place], [address], [place] tel:[phone] [facility] CERVICALGIA 0 4 Eckryanni Alberto. [address], [place], [id number], [place]. tel:[phone] Referring Provider: Alfredo Rubio, [facility] [address] [place], [address]. tel:[phone] Office/Outpa tient Visit,New, Mod Z [facility], [address], [place], [address], [place] tel:[phone] [facility] No Information 0 4 Ecmilagros Dominguez. [address] [place] [address], [place], [id number], [place]. tel:[phone] Referring Provider: Alfredo Rubio, [facility] [address] [place], [address]. tel:[phone] Z [facility], [address], [place], [address], [place] tel:[phone] [facility] No Information 1 No Information Referring Provider: Alfredo Rubio, [facility] [address] [place], [address]. tel:[phone] Pre Op Office/outpa tient visit, Z [facility], [address], [place], [address], [place] tel:[phone] [facility] Communication No Information June-0 1 No Information Referring Provider: Alfredo Rubio, [facility] [address] [place], [address]. tel:[phone] Office/outpa tient visit,est, mod Z [facility], [address], [place], [address], [place] tel:[phone] [facility] Communication No Information 0 1 No Information Referring Provider: Alfredo Rubio, [facility] [address] [place], [address]. tel:[phone] Office/outpa tient visit,new, mod Z [facility], [address], [place], [address], [place] tel:[phone] [facility] Communication No Information 1 No Information Referring Provider: Alfredo Rubio, [facility] [address] [place], [address]. tel:[phone] Family History Family Member Type Diagnosis Age [...] Order: Radiology Order barbie Complete 2+ Views ([id number]), Ordered on: Ordered History Of Present Illness Encounter Date Complaint History Of Prese nt Illness No Information Functional Status Date Functional Assessmen t No Information Instructions Date Instruction Additional Infor mation No Information Assessments Type Assessment Date assessment Cervicalgia Patient Care Teams Name Effective Dates (start - stop) Status Members No Information
--- OUTSIDE RECORDS SUMMARY | 2023-08-14 06:09 | XMS_ITS | Encounter Summary ---
Author Organization [place] Address [address] [facility] [place] [address] Care Team Providers Care Arc Welding Machine Operator Name Role Phone Alfredo Starr MD Primary Care Provider [phone] Elif Souza MD Unavailable Unavailable Reason for Visit * Reason Comments WOUND CARE Encounter Details Date Type Department Care Team (Late st Contact Info) Description 06/15/2023 1:14 PM CDT - 06/15/2023 11:59 PM CDT Hospital Encounter [facility] [place] [address] [place] [address] Mellisa Hill PA-C [facility] [address] [facility] [place] [address] Right groin ulcer, with fat [...] Discharge Instructions * Discharge Instructions* Chinyere Santos, OCRY - 06/15/2023 1:17 PM CDT 06/15/2023 Tl Lugo 1940 A DME order was not completed because supplies were not needed Dressing changes outside of clinic are being performed by Patient PLAN: -Darleen will try and get records from [facility] to get a better history of your wound -Follow with a temperature control inspector to look at lesions on head and face and left leg. [facility] [phone]. Located in [place]. Could Call PCP for further recommendations in [facility]. Wound Dressing Change: Right Groin [...] PA-C June 15, 2023 Call us at [phone] if you have any questions about your [...] your patient satisfaction survey form [facility] will be sending you. It was a [...] any billing related questions please call the [facility] Business office at [phone].The clinic staff does not handle billing related [...] from the original note were not included. [facility] ASSESSMENT: Full thickness ulcer [...] why. Will attempt to obtain records from [facility] to get better picture of the history of this area and whether or not he was radiated there. It is unclear why he would have radiation in this area if he has nohistory of skin cancer there. If sweating is part of the picture I would consider using drysol locally in an attempt to minimize this Recommended he see a temperature control inspector for the suspicious lesions on his scalp, [...] for details. He states it was in [place] VITALS: BP 95/62 (BP Location: Left arm, [...] 2.4 cm^3 06/15/23 131 Wound healing % -59831.33 06/15/23 131 Drainage Characteristics/Odor sanguineous 06/15/231316 Drainage [...] -Darleen will try and get records from [facility] to get a better history of your wound -Follow with a temperature control inspector to look at lesions on head and face and left leg. [facility]: [phone]. Located [place]. Could Call PCP for further recommendations in [facility]. Wound Dressing Change: Right Groin [...] PA-C June 15, 2023 Call us at [phone] if you have any questions about your [...] that on [facility] patient [facility]. It was [...] any billing related questions please call the [facility] Business office at [phone].The clinic staff does not handle billing related [...] Info) Description 09/08/2023 1:30 PM CDT Appointment [facility] [place] [address] [place] [phone] Oseas Ta, SENIOR INFORMATION SECURITY ENGINEER CLAY TEMPERER [address] [place] [address] documented as of this encounter Visit Diagnoses Diagnosis Right groin ulcer, with fat layer exposed (H)- Primary documented in this encounter Care Teams Arc Welding Machine Operator Relationship Specialty Start Date End Date Alfredo Starr MD PCP - General Family Practice 12/11/14 Elif Souza MD Resident Student in organized health care education/training program 12/11/14 documented as of this encounter
--- OUTSIDE RECORDS SUMMARY | 2023-08-14 06:09 | XMS_ITS | Referral Summary ---
Author Organization [place] Address [address] [facility] [place] [address] Care Team Providers Care Ambulance Driver Name Role Phone Alfredo Starr MD Primary Care Provider [phone] Elif Souza MD Unavailable Unavailable Encounters Date Type Department Care Team Description 06/15/2023 Travel 06/15/2023 1:14 PM CDT - 06/15/2023 11:59 PM CDT Hospital Encounter [facility] [place] [address] [place] [address] [address] [place] [address] Mellisa Hill PA-C Right groin [...] Info) Description 09/08/2023 1:30 PM CDT Appointment [facility] [place] [address] [place] [address] Oseas Ta W, MANAGER COSMETIC COSMETIC MANAGER [address] [place] [address] Procedures Procedure Name Priority Date/Time Associated Diagnosis Comments CTA CHEST WITH CONTRAST Routine 03/10/2014 8:06 PM CONDUCTOR FREIGHT from Last 3 Months or Most Recently Relevant to Health Maintenance Care Teams Ambulance Driver Relationship Specialty Start Date End Date Alfredo Starr MD PCP - General Family Practice 12/11/14 Elif Souza MD Resident Student in organized health care education/training program 12/11/14
== END 2023-08-11 16:49 | disposition home or self-care (01) ==
LOC: AMB 08-14 05:53
PROVIDERS: PCP Family Medicine; Visit Provider Emergency Medicine Emergency Medical Services
DX: R53.1 Weakness (principal)
CPT/HCPCS: A0998

== ENCOUNTER 2023-08-11 23:31 | Outpatient (CLI) | payer OTHER, SELFPAY ==
--- OUTSIDE RECORDS SUMMARY | 2023-08-21 03:33 | XMS_ITS | Continuity of Care Document ---
Author Organization [facility] Address [address] [place] [address] Phone Care Team Providers Care Business Quality Assurance Analyst Name Role Phone Jonathan ALVAREZ, Amivenancio Unavailable [...] 2015 Office/Outpatient Visit,Est, Mod 2013 Office/Outpatient Visit,New, [facility] [place] X-Ray Exam Of Neck Spine, 4+ Views Neck Spine Fuse & Removal Addl 11 Addl Neck Spine Fusion Insert spine fix dev, ant, 2-3 seg Allograft, spine surg, structural Autograft, spine surgery, local 011 Allograft, spine surg, morselized Pre Op Office/outpatient visit, 011 X-ray exam of neck spine2-3 views Office/outpatient visit,est, mod 2010 Office/outpatient visit,new, [facility] [place] 2010 Advance Directives Directive Yes / No Effective Date File Name No Information Encounters Encounter Description Practice Location Reason(s) For Visit Diagnoses Date Provider Providers Copied on Encounter Office/Outpa tient Visit,Est, Mod [facility], [address], [place], [place], [id number], [place] tel:[phone] [facility] 6 Mehbod Nasreenr. [facility], [address], [place], [place], [id number], [place]. tel:[phone] Office/Outpa tient Visit,Est, Mod [facility], [address], [place], [place], [id number], [place] tel:[phone] [facility] 6 Eckryanni Alberto. [address], [place], [place], [id number], [place]. tel:[phone] Office/Outpa tient Visit,Est, Mod Z [facility], [address], [place], [address], [place] tel:[phone] [facility] CERVICAL[facility] 0 4 Eckryanni Alberto. [address], [place], [id number], [place]. tel:[phone] Referring Provider: Alfredo Rubio, [facility] [address] [place], [address]. tel:[phone] Office/Outpa tient Visit,New, Mod Z [facility], [address], [place], [address], [place] tel:[phone] [facility] No Information 0 4 Ecmilagros Dominguez. [address] [place] [address], [place], [id number], [place]. tel:[phone] Referring Provider: Alfredo Rubio, [facility] [address] [place], [address]. tel:[phone] Z [facility], [address], [place], [address], [place] tel:[phone] [facility] No Information 1 No Information Referring Provider: Alfredo Rubio, [facility] [address] [place], [address]. tel:[phone] Pre Op Office/outpa tient visit, Z [facility], [address], [place], [address], [place] tel:[phone] [facility] No Information June-0 1 No Information Referring Provider: Alfredo Rubio, [facility] [address] [place], [address]. tel:[phone] Office/outpa tient visit,est, mod Z [facility], [address], [place], [address], [place] tel:[phone] [facility] No Information 0 1 No Information Referring Provider: Alfredo Rubio, [facility] [address] [place], [address]. tel:[phone] Office/outpa tient visit,new, mod Z [facility], [address], [place], [address], [place] tel:[phone] [facility] No Information 1 No Information Referring Provider: Alfredo Rubio, [facility] [address] [place], [address]. tel:[phone] Family History Family Member Type Diagnosis Age At Onset Problem (finding) Problem (finding) Problem (finding) Problem (finding) Problem (finding) Payers Payer name Insurance type Covered alliance party ID Authoriza tion(s) No Information Social [...] Order: Radiology Order barbie Complete 2+ Views ([id number]), Ordered on: Ordered History Of Present Illness Encounter Date Complaint History Of Prese nt Illness No Information Functional Status Date Functional Assessmen t No Information Instructions Date Instruction Additional Infor mation No Information Assessments Type Assessment Date assessment Cervicalgia Patient Care Teams Name Effective Dates (start - stop) Status Members No Information
--- OUTSIDE RECORDS SUMMARY | 2023-08-21 03:33 | XMS_ITS | Encounter Summary ---
Author Organization [facility] Address [address] [facility] [place] [address] Care Team Providers Care Trip Motor Operator Name Role Phone Alfredo Starr MD Primary Care Provider [phone] Elif Souza MD Unavailable Unavailable Encounter Details [...] Info) Description 09/08/2023 1:30 PM CDT Appointment [facility] [place] [id number] [facility] [address] [place] [phone] Oseas Ta, AP PROCESSOR FOURCHETTE SEWER [address] [place] [address] documented as of this encounter Visit Diagnoses Not on filedocumented in this encounter Care Teams Trip Motor Operator Relationship Specialty Start Date End Date Alfredo Starr MD PCP - General Family Practice 12/11/14 Elif Souza MD Resident Student in organized health care education/training program 12/11/14 documented as of this encounter
--- OUTSIDE RECORDS SUMMARY | 2023-08-21 03:33 | XMS_ITS | Referral Summary ---
Author Organization [place] Address [address] [facility] [place] [address] Care Team Providers Care Filtrose Crusher Name Role Phone Alfredo Starr MD Primary Care Provider [phone] Elif Souza MD Unavailable Unavailable Encounters Date Type Department Care Team Description 06/15/2023 Travel 06/15/2023 1:14 PM CDT - 06/15/2023 11:59 PM CDT Hospital Encounter [facility] [place] [address] [place] [address] [address] [place] [address] Mellisa Hill PA-C Right groin [...] Info) Description 09/08/2023 1:30 PM CDT Appointment [facility] [place] [address] [place] [address] Oseas Ta W, MINISTER BLUE SPLIT TRIMMER [address] [place] [address] Procedures Procedure Name Priority Date/Time Associated Diagnosis Comments CTA CHEST WITH CONTRAST Routine 03/10/2014 8:06 PM COMBINATION MACHINE TOOL SETTER from Last 3 Months or Most Recently Relevant to Health Maintenance Care Teams Filtrose Crusher Relationship Specialty Start Date End Date Alfredo Starr MD PCP - General Family Practice 12/11/14 Elif Souza MD Resident Student in organized health care education/training program 12/11/14
--- OUTSIDE RECORDS SUMMARY | 2023-08-21 03:33 | XMS_ITS | Encounter Summary ---
Author Organization [place] Address [address] [facility] [place] [address] Care Team Providers Care Diesel Motor Mechanic Name Role Phone Alfredo Starr MD Primary Care Provider [phone] Elif Souza MD Unavailable Unavailable Reason for Visit * Reason Comments WOUND CARE Encounter Details Date Type Department Care Team (Late st Contact Info) Description 06/15/2023 1:14 PM CDT - 06/15/2023 11:59 PM CDT Hospital Encounter [facility] [place] [address] [place] [address] Mellisa Hill PA-C [facility] [address] [facility] [place] [address] Right groin ulcer, with fat [...] -Darleen will try and get records from [facility] to get a better history of your wound -Follow with a fiscal accounting clerk to look at lesions on head and face and left leg. [place] [facility] [phone]. Located in [place]. Could Call PCP for further recommendations in [facility]. Wound Dressing Change: Right Groin - [...] PA-C June 15, 2023 Call us at [phone] if you have any questions about your [...] that on your patient satisfaction survey form [facility] will be sending you. It was [...] any billing related questions please call the [facility] Business office at [phone].The clinic staff does not handle billing related [...] from the original note were not included. [facility] ASSESSMENT: Full thickness ulcer [...] why. Will attempt to obtain records from [facility] to get better picture of the history of this area and whether or not he was radiated there. It is unclear why he would have radiation in this area if he has nohistory of skin cancer there. If sweating is part of the picture I would consider using drysol locally in an attempt to minimize this Recommended he see a fiscal accounting clerk for the suspicious lesions on his scalp, [...] for details. He states it was in [place] VITALS: BP 95/62 (BP Location: Left arm, [...] 2.4 cm^3 06/15/23 131 Wound healing % -62799.33 06/15/23 131 Drainage Characteristics/Odor sanguineous 06/15/231316 Drainage [...] -Darleen will try and get records from [facility] to get a better history of your wound -Follow with a fiscal accounting clerk to look at lesions on head and face and left leg. [facility]: [phone]. Located in [place]. Could Call PCP for further recommendations in [facility]. Wound Dressing Change: Right Groin - [...] PA-C June 15, 2023 Call us at [phone] if you have any questions about your [...] that [facility]. It was [...] any billing related questions please call the [facility] Business office at [phone].The clinic staff does not handle billing related [...] Info) Description 09/08/2023 1:[address] [facility] [place] [address] [place] [phone] Oseas Ta, RECENTERER ENGINEERING TEAM SUPERVISOR [address] [place] [address] documented as of this encounter Visit Diagnoses Diagnosis Right groin ulcer, with fat layer exposed (H)- Primary documented in this encounter Care Teams Diesel Motor Mechanic Relationship Specialty Start Date End Date Alfredo Starr MD PCP - General Family Practice 12/11/14 Elif Souza MD Resident Student in organized health care education/training program 12/11/14 documented as of this encounter
--- OUTSIDE RECORDS SUMMARY | 2023-08-21 03:33 | XMS_ITS | Clinical Summary ---
Author Organization [facility] Address [place], [place] [address] Care Team Providers Care Bindery Machine Setter/Set Up Operator Name Role Phone Alfredo Starr MD Primary Care Provider [phone] Allergies Active Allergy Reactions Criticality Noted Date [...] Pain was well controlled here on dilaudid COMPOSITION WEATHERBOARD INSTALLER on following regimen: LOADING DOSE: 0.2 mg for 1 dose COMPOSITION WEATHERBOARD INSTALLER BOLUS DOSE: 0.2-0.3 mg LOCKOUT INTERVAL: 10 [...] 3-15-10 05/06/2009 Cardiomyopathy , ischemic; old inf [place] 05/02/2009 Overview: Per preop, EF of 39% Claudication 11/23/2008 Nonspecific abnormal electrocardiogram (ECG) (EK G) 05/27/2007 Cardiomegaly 05/27/2007 Chronic systolic CHF (congestive heart failure) 05/27/2007 Encounters Date Type Department Care Team Description 08/15/2023 9:50 AM CDT Ancillary Procedure [facility] [address] [place] [address] from Last 3 Months Immunizations Name Administration Dates Next Due Pneumococcal [...] Comments Blood Pressure 123/73 04/16/2014 2:19 PM RECONCILIATION CLERK Pulse 115 04/16/2014 2:19 PM RECONCILIATION CLERK Temperature 38.3 ??C (100.9 ??F) 04/16/2014 3:[address] Respiratory Rate 20 04/16/2014 2:19 PM RECONCILIATION CLERK Oxygen Saturation 94% 04/16/2014 2:19 PM RECONCILIATION CLERK Inhaled Oxygen Concentration - - Weight 86.1 kg (189 lb 13.1 oz) 04/16/2014 5:00 AM RECONCILIATION CLERK Height 180.3 cm (5' 10.98) 04/02/2014 12:00 AM RECONCILIATION CLERK Body Mass Index 26.49 04/02/2014 12:00 AM RECONCILIATION CLERK Plan of Treatment Health Maintenance Due Date Last Done Comments Tdap 1953 Depression screening for age 12+ 1954 BMI (ht and wt on same day) for age 18+ 1960 Tetanus booster 1962 Zoster (shingles) series for age 50+ (1 of 2) 05/10/18 93 Pneumococcal series for age 65+ (2 of 2 - PCV) 011 04/30/2009 COVID-19 vaccine series ( season) 3 Influenza for age 65+ 10/24/2023 Medical Devices Implanted Type Area Sports Marketing Coordinator Device Identifier Shelf Expiration Date Model / Serial / Lot [id number] [[id number]][[id number]] Implanted:Qty: 1 on 06/24/[address] [facility] Explanted:at [facility] (Quantity not on file) Spine Medtronic 11/05/[id number]# / [id number] / [id number] [[id number]][[id number]] Implanted:Qty: 1 on 06/24/[address] [facility] Explanted:at [facility] (Quantity not on file) Spine Medtronic 11/05/[id number]# / [id number] / [id number] [id number] Progenix Dbm 1cc [[id number]][[id number]] Implanted:Qty: 1 on 06/24/[address] [facility] Explanted:at [facility] (Quantity not on file) Spine Medtronic 11/28/2011 [id number]# / [id number] / Plate 42.5mm Zephir - [id number] Implanted:Qty: 1 on 06/24/[address] [facility] N/A: Spine SOFAMOR DANEK [id number]# / / Screw Self Drilling 4.0x15mm - [id number] Implanted:Qty: 1 on 06/24/[address] [facility] N/A: Spine SOFAMOR DANEK [id number]# / / Screw Self Drilling 3.5x15mm - [id number] Implanted:Qty: 4 on 06/24/[address] [facility] N/A: Spine SOFAMOR DANEK [id number]# / / Screw Locking Fixed 4.86t83bj - [id number] Implanted:Qty: 1 on 03/17/[address] [facility] Left: Shoulder BIOMET 160699# / / [id number] Glenosphere 41mm Std Co Cr Comprehensive - [id number] Implanted:Qty: 1 on 03/17/[address] [facility] Left: Shoulder BIOMET [id number]# / / [id number] Screw 6.5x35mm Rev - [id number] Implanted:Qty: 1 on 03/17/[address] [facility] Left: Shoulder BIOMET 148471# / / [id number] Bearing Humeral 44 -41 +3 Arcom Xl - [id number] Implanted:Qty: 1 on 03/17/[address] [facility] Left: Shoulder BIOMET [id number]# / / [id number] Stem Hum Sz13 Comprehensive Mini Co Cr - [id number] Implanted:Qty: 1 on 03/17/[address] [facility] Left: Shoulder BIOMET [id number]# / / [id number] Glenosphere Mini Baseplate Implanted:Qty: 1 on 03/17/[address] [facility] Left: Shoulder [id number] / / [id number] Description:GLENOSPHERE MINI BASEPLATE Humeral Tray Implanted:Qty: 1 on 03/17/[address] [facility] Left: Shoulder [id number] / / [id number] Description:HUMERAL TRAY Screw Locking 4.15f06kc Fixed - [id number] Implanted:Qty: 1 on 03/17/[address] [facility] Left: Shoulder BIOMET 896895# / / [id number] Screw Locking Fixed 4.87o77rg - [id number] Implanted:Qty: 1 on 03/17/[address] [facility] Left: Shoulder BIOMET 505110# / / [id number] Screw Locking Fixed 4.01s34ha - [id number] Implanted:Qty: 1 on 03/17/[address] [facility] Left: Shoulder BIOMET 780046# / / [id number] Explanted Type Area Sports Marketing Coordinator Device Identifier Shelf Expiration Date Model / Serial / Lot Patch Vasc 0.8x8cm Xenosure Biological Pericardial - [id number] Explanted:Qty: 1 on 03/09/[address] [facility] Right: Leg [employer] 0.8P8# / / [id number] Procedures Procedure Name Priority Date/Time Associated Diagnosis Comments ECHO TTE COMPLETE W CONTRAST Routine 08/15/2023 10:51 AM CDT Heart failure (HC) Hypotension from Last 3 Months Results * ECHO TTE COMPLETE W CONTRAST (08/15/2023 10:51 AM CDT) AORTIC VALVE MEAN PG 6 mmHg EJECTION FRACTION 62 % LVEDD 5.3 cm EJECTION FRACTION 55 - 60% Anatomical Region Laterality Modality Ultrasound 08/15/2023 10:0 1 AM CDT Narrative 08/15/2023 11:23 AM CDT ECHOCARDIOGRAM TL Ratliff BENEDICT ? Accession#: ?? [id number] : ?1940 83 years Study Date: ?? 08/15/2023 10:01:51 AM Gender: M ?BP: ? 148/84 mmHg Height: 183.00 cm ?BSA: ?2.11 m? ? ? Weight: 89.00 kg ? Tech: ? MCK ? Referring MD: MANOJ HARVEY Site: ? [facility] [place] Location: [facility] Patient Location: Inpatient. Procedure: 2D w/ Contrast, Color Doppler and Spectral Doppler. Indication for study: Heart Failure, hypotension Cardiac Rhythm: Regular.Study quality: Technically limited. Imaging limitations: This study was subject to imaging limitations due to body habitus and a prominent lung artifact. Final Impressions: 1. Technically limited exam. 2. Normal LV size, mildly increased wall thickness, normal global systolic function with an estimated EF of 55 - 60%. 3. Basal inferior segment is abnormal. 4. The ascending aorta is dilated with a maximal diameter of 4.6 cm. 5. Echo contrast was administered to enhance visualization of all left ventricular segments. Chamber Sizes and Function Normal left ventricular size, mildly increased wall thickness, normal global systolic function with an estimated EF of 55 - 60%. Left atrial size is normal. Right ventricular cavity size is normal, global systolic RV function is normal. RV wall thickness is normal. The right atrium is normal. Right atrial volume index is 13 ml/m? ? ?. Right atrial area is 15 cm? ? ?. The pulmonary artery is not well visualized. The sinus of Valsalva is normal sized. The ascending aorta is dilated. The basal inferior segment is hypokinetic. Valves, RV Pressures and Diastolic Function The aortic valve is not well visualized , no stenosis and no regurgitation. The mitral valve is normal in structure, no mitral regurgitation. Normal diastolic function. The tricuspid valve is normal in structure. Tricuspid regurgitation is trace regurgitation. The pulmonic valve is not well visualized. No pulmonary regurgitation. Masses, Effusion, Shunts There is no pericardial effusion. The inferior vena cava is normal sized, respiratory size variation greater than 50%. No left to right shunting was detected by limited color flow Doppler interrogation of the interatrial septum. MEASUREMENTS AND CALCULATIONS 2-D Measurements and LV Function: LVID (d) 5.3 cm LV FS% (2D) ?? 27 % LVID (s) 3.9 cm LVOT diameter 2.4 cm IVS (d) ??1.3 cm HR ?92 bpm LVPW (d) 1.3 cm LA Vol index ??21 ml/m2 Ao Sinus 3.7 cm RA Vol index ??13 ml/m2 Asc Ao ?? 4.6 cm RA area ? 15 cm? ? ? LA ? 4.2 cm RV Max 4C (d) 3.8 cm Diastology: Tissue Doppler e', Lateral ?0.07 m/s Aortic Valve: Vmax ? 1.7 m/s ??CHRISTI (V) ?? 3.13 cm? ? ? VTI ?0.30 m ?? CHRISTI (I) ?? 3.34 cm? ? ? LVOT V max 1.1 m/s ??Max PG ?11 mmHg LVOT VTI ?? 0.21 m ?? Mean PG ?? 6 mmHg SV ? 100 ml ?? Dim Index 0.71 SV index ?? 47 ml/m? ? ? CO ?9.2 l/min ?CI ?4.3 l/min/m? ? ? Tricuspid Valve and estimated PA pressures: TAPSE 2.7 cm Contrast documentation: 3 ml diluted Definity, lot #[id number], [facility]# [id number] was administered peripherally to enhance visualization of all left ventricular segments. . This study was interpreted by an [facility] accredited facility. CC: Med/Surg - IP [facility], Med/Surg - IP [facility]. ??Final ?? Procedure Note Rik Devine MD - 08/15/2023 ECHOCARDIOGRAM TL LUGO : 1940 83 years Study Date: 08/15/2023 10:01:51 AM Gender: M BP: 148/84 mmHg Height: 183.00 cm BSA: 2.11 m? ? ? Weight: 89.00 kg Tech: AMANDA Referring MD: MANOJ HARVEY Site: [facility] [place] Location: [facility] Patient Location: Inpatient. Procedure: 2D w/ Contrast, Color Doppler and Spectral Doppler. Indication for study: Heart Failure, hypotension Cardiac Rhythm: Regular.Study quality: Technically limited. Imaging limitations: This study was subject to imaging limitations due tobody habitus and a prominent lung artifact. Final Impressions: 1. Technically limited exam. 2. Normal LV size, mildly increased wall thickness, normal globalsystolic function with an estimated EF of 55 - 60%. 3. Basal inferior segment is abnormal. 4. The ascending aorta is dilated with a maximal diameter of 4.6 cm. 5. Echo contrast was administered to enhance visualization of all leftventricular segments. Chamber Sizes and Function Normal left ventricular size, mildly increased wall thickness, normalglobal systolic function with an estimated EF of 55 - 60%. Left atrialsize is normal. Right ventricular cavity size is normal, global systolicRV function is normal. RV wall thickness is normal. The right atrium isnormal. Right atrial volume index is 13 ml/m? ? ?. Right atrial area is 15cm? ? ?. The pulmonary artery is not well visualized. The sinus of Valsalvais normal sized. The ascending aorta is dilated. The basal inferiorsegment is hypokinetic. Valves, RV Pressures and Diastolic Function The aortic valve is not well visualized , no stenosis and noregurgitation. The mitral valve is normal in structure, no mitralregurgitation. Normal diastolic function. The tricuspid valve is normal instructure. Tricuspid regurgitation is trace regurgitation. The pulmonicvalve is not well visualized. No pulmonary regurgitation. Masses, Effusion, Shunts There is no pericardial effusion. The inferior vena cava is normal sized,respiratory size variation greater than 50%. No left to right shunting wasdetected by limited color flow Doppler interrogation of the interatrialseptum. MEASUREMENTS AND CALCULATIONS 2-D Measurements and LV Function: LVID (d) 5.3 cm LV FS% (2D) 27 % LVID (s) 3.9 cm LVOT diameter 2.4 cm IVS (d) 1.3 cm HR 92 bpm LVPW (d) 1.3 cm LA Vol index 21 ml/m2 Ao Sinus 3.7 cm RA Vol index 13 ml/m2 Asc Ao 4.6 cm RA area 15 cm? ? ? LA 4.2 cm RV Max 4C (d) 3.8 cm Diastology: Tissue Doppler e', Lateral 0.07 m/s Aortic Valve: Vmax 1.7 m/s CHRISTI (V) 3.13 cm? ? ? VTI 0.30 m CHRISTI (I) 3.34 cm? ? ? LVOT V max 1.1 m/s Max PG 11 mmHg LVOT VTI 0.21 m Mean PG 6 mmHg SV 100 ml Dim Index 0.71 SV index 47 ml/m? ? ? CO 9.2 l/min CI 4.3 l/min/m? ? ? Tricuspid Valve and estimated PA pressures: TAPSE 2.7 cm Contrast documentation: 3 ml diluted Definity, lot #[id number], [facility]#[id number] was administered peripherally to enhance visualization of allleft ventricular segments. . This study was interpreted by an [facility] accredited facility. CC: Med/Surg - IP [facility], Med/Surg - IP [facility]. Final Manoj Harvey MD ECHO ORD from Last 3 Months Advance Directives Documents on File Type Date Recorded Patient Senior Product Development Manager Expl anation Healthcare Directive 05/12/2009 Healthcare Directive [...] 12:44 PM 03/19/2012 4:35 PM Care Teams Bindery Machine Setter/Set Up Operator Relationship Specialty Start Date End Date Alfredo Starr MD PCP - General 11/13/08
--- OUTSIDE RECORDS SUMMARY | 2023-08-21 03:33 | XMS_ITS | Clinical Summary ---
Author Organization [place] Address [address] [place] [address] Care Team Providers Care Recycling Center Operator Name Role Phone Alfredo Starr MD Primary Care Provider [phone] Elif Souza MD Unavailable Unavailable Allergies Active [...] 06/15/2023 11:59 PM CDT Hospital Encounter [facility] [place] [address] [place] [...] Description 09/08/2023 1:30 PM CDT Appointment [facility] [place] [address] [place] [phone] Oseas Ta, ELECTROTYPER HELPER ED TECH [address] [place] [address] Health Maintenance Due Date Last Done Comments [...] CHEST WITH CONTRAST Routine 03/10/2014 8:06 PM SUPERINTENDENT PIER from Last 3 Months or Most Recently Relevant to Health Maintenance Care Teams Recycling Center Operator Relationship Specialty Start Date End Date Alfredo Starr MD PCP - General Family Practice 10/20/15 Elif Souza MD Resident Student in organized health care education/training program 12/11/14
== END 2023-08-11 23:32 | disposition home or self-care (01) ==
LOC: AMB 08-21 03:31
PROVIDERS: PCP Family Medicine; Visit Provider Emergency Medicine Emergency Medical Services
DX: R53.1 Weakness (principal)
CPT/HCPCS: A0425; A0427

== ENCOUNTER 2023-08-11 23:54 | Inpatient (IN) | payer OTHER, SELFPAY ==
[2023-08-12] VITALS (65 sets, daily range): BP systolic 72–124; BP diastolic 43–86; PULSE 88–104; RESP 15–20; TEMP 36.3–37.5; O2SAT 55–100; BMI 29.8; BMI 25.2
--- NOTE | 2023-08-12 00:07 | CRLHL7_ITS ---
For Patients: As a result of the Century Cures Act, medical imaging exams and procedure reports are released immediately into your electronic medical record. You may view this report before your referring provider. If you have questions, please contact your health care provider. INDICATION: Weakness. TECHNIQUE: Chest 1 view. COMPARISON: 02/20/2019. FINDINGS: Cardiovascular and mediastinum: Normal heart size for portable technique. Uncoiled and atherosclerotic thoracic aorta. Lungs and pleural spaces: Diffuse increased interstitial lung markings, similar compared to the prior exam. No focal consolidation, pleural effusion, or pneumothorax. Bones and soft tissues: Degenerative changes of the bilateral acromioclavicular joints and right glenohumeral joint. Left shoulder arthroplasty. Anterior cervical fusion hardware. No acute findings. IMPRESSION: Diffusely increased interstitial lung markings may represent pulmonary edema or fibrotic changes. Dictated by Alberto Beal MD @ 08/12/2023 1:47:28 AM (Electronically Signed)
[2023-08-12] MEDS: 0.9 % SODIUM CHLORIDE 1000 ml 1,000 ML IV ×3 (00:10→11:03)
--- NOTE | 2023-08-12 00:11 | ED.GENADULT ---
HPI - General Adult General Chief complaint: Weakness Stated complaint: hypotension Time Seen by Provider: 08/11/23 23:57 Source: patient and EMS Mode of arrival: EMS History of Present Illness HPI narrative: Male presents to the emergency department by EMS because of weakness, was unable to get out of his chair. Per EMS, they were called frequently due to falls and or other typical needs and he is not often transported to the emergency department but was found to be hypotensive today. He denies any symptoms of localizing illness, he denies any chronic wounds to me but on review of his records I see that he has a chronic open wound in the groin area which I will need to go back and see. He also reports that there have been ?experiments? on his head. He has several bandage lesions that look as though they have been recently bleeding on the top of the head and also the right cheek area. They do have Hospital grade bandages on them which makes me think that they could have been biopsies but I cannot tell if he is cantankerous or is not remembering correctly. He cannot recall where this was done. He denies fevers, dysuria, productive cough, abdominal pain, medication changes. He also denies to me that he has any chronic medical problems or takes any medications when it is clear that that is not the case. Reports that he lives alone here in [place] but does not give further details. Denies intoxication. Patient was a very difficult historian and what he does tell me I cannot consider reliable. EMS unfortunately did not get any other helpful information, as there was no one else to give a history in his apartment. Last ED note and last physical from April are reviewed. 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 Home medications reviewed, it does look as though he is filling these. He is chronically anticoagulated. Nonsmoker. ROS would be considered unreliable and is reviewed times 12 systems, patient denying all. Related Data Home Medications ?Medication ?Instructions ?Recorded ?Confirmed ibuprofen 200 mg tablet 200 mg PO Q6-8H PRN 10/16/21 05/12/23 aspirin 81 mg tablet,delayed 81 mg PO QDAY 06/09/22 05/12/23 release Previous Rx's ?Medication ?Instructions ?Recorded acetic acid 0.25 % irrigation 0.25 irrig irrigation BID #1,000 mL 10/21/22 solution atorvastatin 80 mg tablet 80 mg PO QHS #90 tabs 05/12/23 furosemide 20 mg tablet 20 mg PO BID #180 tabs 05/12/23 gabapentin 300 mg capsule 600 mg (2 x 300 mg) PO TID #540 05/12/23 caps lisinopril 10 mg tablet 10 mg PO QDAY #90 tabs 05/12/23 warfarin 3 mg tablet 3 mg PO QDAY #90 tabs 05/17/23 Allergies Allergy/AdvReac Type Severity Reaction Status Date / Time latex Allergy Mild Rash Verified 05/12/23 15:00 [facility] Medical History Open wound ?T14.8XXA - Other injury of unspecified body region, initial encounter (ICD-10) Non-healing wound Ulcer of right leg ?L97.919 - Non-pressure chronic ulcer of unspecified part of right lower leg with unspecified severity (ICD-10) History of alcoholism (03/16/11) ?F10.21 - Alcohol dependence, in remission (ICD-10) Surgical History H/O hernia repair ?Z98.890 - Other specified postprocedural states (ICD-10) ?Z87.19 - Personal history of other diseases of the digestive system (ICD-10) History of surgery on lower extremity ?Z98.890 - Other specified postprocedural states (ICD-10) Status post reverse total replacement of left shoulder ?Z96.612 - Presence of left artificial shoulder joint (ICD-10) Status post above-knee amputation of right lower extremity ?Z89.611 - Acquired absence of right leg above knee (ICD-10) Social History Smoking Status: Never smoker Non-prescribed substance use: denies use Little interest or pleasure in doing things: not at all Feeling down, depressed, or hopeless: not at all Exam Const: Vital Signs, click to edit/add: Vital Signs - 24 hr 08/12/23 00:02 08/12/23 00:12 08/12/23 00:26 Temperature 97.8 F Pulse Rate 92 Pulse Rate [Pulse Oximeter] 102 H Respiratory Rate 18 20 Blood Pressure 79/51 L Blood Pressure [Ri ght Upper Arm] 81/51 L Pulse Oximetry 95 97 55 L Oxygen Delivery Me thod Room Air 08/12/23 00:41 08/12/23 00:44 08/12/23 01:21 Temperature Pulse Rate 98 92 94 Pulse Rate [Pulse Oximeter] Respiratory Rate 20 20 20 Blood Pressure 72/43 L 74/48 L 76/48 L Blood Pressure [Ri ght Upper Arm] Pulse Oximetry 90 90 Oxygen Delivery Me thod 08/12/23 01:41 08/12/23 01:45 08/12/23 02:15 Temperature Pulse Rate 94 98 97 Pulse Rate [Pulse Oximeter] Respiratory Rate 18 16 Blood Pressure 86/57 L 91/55 L Blood Pressure [Ri ght Upper Arm] Pulse Oximetry 68 L 94 94 Oxygen Delivery Me thod Documenting provider has reviewed patient's vital signs: yes Common normals: alert Other: Appears pale, slightly sallow. Difficult historian. Initially difficult to tell if this is from acute condition or personality. Does appear generally weak, has much difficulty pulling himself up with the bed rails. HENMT: Other: Bandage wounds with dried blood on top of head and right cheek area. No active bleeding. No bruising. Lips pale but acyanotic. Moist oral membranes. No tongue biting. Normal posterior pharynx Eye: Common normals: PERRL, EOMs intact bilaterally and conjunctivae normal Conjunctiva: conjunctiva(e) normal Pupil: PERRL Neck & C-Spine: Common normals: full ROM and no lymphadenopathy Resp: Common normals: normal respiratory effort Other: Breath sounds are slightly decreased but no obvious crackles. Cardio: Other: Heart sounds are distant but with regular rate and rhythm positive S1 and S2 and no obvious murmur. GI: Common normals: Normal to inspection, nondistended, normoactive bowel sounds present Other: No obvious mass but there is a slight fullness in the epigastric area, does not seem tender. Difficult exam due to positioning and patient cooperation. No obvious rebound tenderness, guarding. : Common normals: no CVA tenderness Bladder/kidney exam: no CVA tenderness Back & Pelvis: Common normals: no CVA tenderness Other: Poor posture, kyphosis noted. Extremity: Other: Right leg amputated at hip. Left leg with some mild stasis changes but no obvious ulceration to lower leg. Trace edema. Neuro: Sensorium/orientation: alert Speech: speech normal Other: Generalized weakness with no focal weakness of upper extremities, facial muscles or speech. Psych: Common normals: speech normal Appearance: grossly normal Attitude: withdrawn and evasive Speech: normal speech Insight: limited Judgement: limited Skin: Narrative: Had wounds as described above. Will modoc back to see groin wound now that I know of it is existence. Course Course ED Course: Hypotension with disorientation in gentleman with chronic weakness and chronic wounds. Differential diagnosis is wide but most likely sepsis secondary to wound infection, cardiac process, intra-abdominal process, heart failure, anemia, electrolyte abnormality, dehydration or blood loss. Viral infection, recent fall or trauma, rhabdomyolysis, amongst many others. As stated history was not particularly helpful. Will draw blood cultures, begin 1 L of normal saline, lab studies, chest x-ray and nursing team to help me examine groin wound. We were able to review [facility] care and do not see any notes more recent than May. Blood pressure was 90s systolic at that visit as well. Additional review of the records does not show any hemoglobin in our system since 2019, values at that time were around 12-13 for hemoglobin. Typically he would have 1 at least every 12 months because of INR management. I can see hemoglobin from [facility] and these values are around 7-8 but it looks like he may have been hospitalized during that time so I am not sure of the clinical significance. Reevaluation(s) Time of Reevaluation #1: 01:52 Reevaluation #1: Labs reviewed with patient. Likely chronic renal failure, chronic blood-loss anemia, hyperkalemia secondary to the renal failure. Elevated INR also likely secondary to the renal failure but cannot exclude medication mismanagement as well. Spoke with the overnight hospitalist. He has appropriate concerns regarding acuteness versus chronicity in this patient's is we do not have a way to really quantify labs. I was able to sneak back in with nursing assistance and examined his chronic wounds. He has some very mild intertrigo but no open ulcerations. There also some sclerotic changes on the right outer hip and right groin area. But there are no raging areas of open wounds, cellulitis or sources of infection here. Hospitalist team is recommending that I repeat his potassium and creatinine. If there is interval improvement in these, they will accept admission but otherwise would recommend transfer. I did attempt to add to the discussion regarding true improvement in labs verses dilution with IV fluids. They standby their recommendations and we will await labs. 5 mg vitamin K will be given for supratherapeutic INR but there are currently no signs of active bleeding. This will need to be further investigated as well to look for a GI, urinary or other source. Patient wishes to be DNR. Time of Reevaluation #2: 02:56 Reevaluation #2: Creatinine has improved slightly, potassium stable. Discussed again with the hospitalist. He appropriately is very hesitant to accept this patient as he thinks that he may require subspecialty consult. I did really insists that the patient be considered for admission as it does seem as though this has come on gradually, he elects to be DNR and I do not think he is a great candidate for dialysis. I would strongly recommend that we get more information about his anemia and continue IV fluids to see if his creatinine recovers, holding his other medications before we consider transport. Keeping in mind with the goals of transfer were be if we are asking for dialysis, endoscopy, other investigations. Stool Hemoccult has been ordered. Strict I&Os recommended. Patient wishes to be DNR. Will be admitted for further workup and management. Vital Signs Vital signs: Initial Vital Signs Temperature 97.8 F 08/12/23 00:02 Temperature Source Temporal Artery Scan 08/12/23 00:02 Pulse Rate 102 H 08/12/23 00:02 Respiratory Rate 18 08/12/23 00:02 Blood Pressure 81/51 L 08/12/23 00:02 Blood Pressure Mean 61 L 08/12/23 00:02 Blood Pressure Position Sitting 08/12/23 00:02 Pulse Oximetry 95 08/12/23 00:02 Oxygen Delivery Method Room Air 08/12/23 00:02 Vital Signs Temperature 97.8 F 08/12/23 00:02 Pulse Rate 102 H 08/12/23 00:02 Respiratory Rate 18 08/12/23 00:02 Blood Pressure 81/51 L 08/12/23 00:02 Pulse Oximetry 95 08/12/23 00:02 Oxygen Delivery Method Room Air 08/12/23 00:02 Temperature 97.8 F 08/12/23 00:02 Pulse Rate 97 08/12/23 02:15 Respiratory Rate 16 08/12/23 02:15 Blood Pressure 91/55 L 08/12/23 02:15 Pulse Oximetry 94 08/12/23 02:15 Oxygen Delivery Method Room Air 08/12/23 00:02 Medications Administered Medications: Generic Name Dose Route Start Last Admin Trade Name Freq PRN Reason Stop Dose Admin Phytonadione 5 mg 08/12/23 01:43 08/12/23 02:14 Phytonadione Oral Soln 10 Mg/Ml PO 08/12/23 01:44 5 mg ONCE ONE Administration Discontinued Medications Generic Name Dose Route Start Last Admin Trade Name Freq PRN Reason Stop Dose Admin Sodium Chloride 1,000 mls @ 1,000 mls/hr 08/12/23 00:08 08/12/23 00:53 0.9 % Sodium Chloride 1000 Ml IV 08/12/23 01:07 Infused .Q1H [place] In[facility] Sodium Chloride 1,000 mls @ 500 mls/hr 08/12/23 00:52 08/12/23 02:53 0.9 % Sodium Chloride 1000 Ml IV 08/12/23 02:51 Infused .Q2H [place] Infusion Medical Decision Making Medical Records Medical records reviewed: Yes I reviewed the patient's medical records Lab Data Lab results reviewed: Yes I reviewed the patient's lab results Lab results narrative: Marked anemia, marked elevation of creatinine over baseline and new hyper Fern me a. Supratherapeutic INR. Repeat labs showing some mild interval improvement in BUN and creatinine. Labs: Lab Results 08/12/23 08/12/23 08/12/23 Range/Units 00:07 00:20 02:10 WBC 5.59 (4.50-11.00) K/uL RBC 2.16 L (4.30-5.90) m/uL Hgb 7.5 L* (13.5-17.5) gm/dL Hct 23.9 L (37.0-53.0) % MCV 111 H (80-100) fL MCH 35 H (26-34) pg MCHC 31 L (32-36) gm/dL RDW Coeff of Abdirizak 14.2 (11.5-15.5) % Plt Count 184 (140-440) K/uL Neut % (Auto) 56.7 (42.0-72.0) % Lymph % (Auto) 27.7 (20-44) % Cass % (Auto) 11.8 H (0.0-11.0) % Eos % (Auto) 2.7 (0.0-7.0) % Baso % (Auto) 0.2 (0.0-3.0) % Neut # (Auto) 3.17 (1.7-7.0) K/uL Lymph # (Auto) 1.55 (0.90-2.90) K/uL Cass # (Auto) 0.70 (0.00-0.90) K/UL Eos # (Auto) 0.15 (0.00-0.50) K/uL Baso # (Auto) 0.01 (0.00-0.30) K/uL Abs Immat Gran (auto) 0.05 (0.00-0.30) K/uL Imm/Tot Granulo (auto) 0.9 % INR 7.78 H* (0.91-1.10) Sodium 137 139 (135-149) mmol/L Potassium 6.2 H* 6.2 H* (3.6-5.1) mmol/L Chloride 112 114 (96-114) mmol/L Carbon Dioxide 18 L 17 L (20-32) mmol/L Anion Gap 7 8 (7-15) mEq/L BUN 103 H 96 H (7-30) mg/dL Creatinine 5.4 H 5.2 H (0.5-1.5) mg/dL Estimated Creat Clear 11.78 12.23 Estimated GFR 10 10 ml/min Glucose 72 64 (60-115) mg/dL Lactate 1.8 (0.5-1.9) mmol/L Calcium 8.7 8.3 L (8.4-10.6) mg/dL Total Bilirubin 0.8 (0.1-1.5) mg/dL AST 36 H (12-35) U/L ALT 13 (4-50) U/L Alkaline Phosphatase 79 (40-150) U/L Troponin I 0.06 H* (0.01-0.04) ng/mL C-Reactive Protein 7.6 H (0.5-1.0) mg/dL NT-Pro-B Natriuret Pep 1560 pg/mL Total Protein 7.3 (6.0-8.3) g/dL Albumin 3.4 (3.3-5.0) g/dL Ethyl Alcohol < 0.01 L (0.01-0.03) % POC Troponin I 0.05 H (0.01-0.04) ng/ml Blood Type A Positive Antibody Screen NEGATIVE ECG Data Attestation: I personally reviewed and interpreted this ECG as follows: Prior ECG tracings: available for review (Comparison 02/20/2019) Interpretation: Sinus tachycardia with a rate of 100. Multiple lead changes but all are stable from January of 2019. Overall interval and axis are normal. No obvious signs of new ischemia. Discharge Plan Discharge Clinical Impression: Renal failure (ARF), acute on chronic, Severe anemia, Supratherapeutic INR, Weakness, Acute hyperkalemia, Delirium due to medical condition without behavioral disturbance Patient Disposition: Admitted As Inpatient Activity Level: Up with assist
[2023-08-12 00:28] LABS: Lactate* 1.8 mmol/L (0.5-1.9)
[2023-08-12 00:30] LABS: Basophils Absolute Auto 0.01 K/uL (0.00-0.30); Basophils Percent Auto 0.2 % (0.0-3.0); Eosinophils Absolute Auto 0.15 K/uL (0.00-0.50); Eosinophils Percent Auto 2.7 % (0.0-7.0); Hematocrit 23.9 % (37.0-53.0); Immature Granulocytes Abs Auto 0.05 K/uL (0.00-0.30); Immature Granulocytes Pct Auto 0.9 %; Lymphocytes Absolute Auto 1.55 K/uL (0.90-2.90); Lymphocytes Percent Auto 27.7 % (20-44); Mean Corpuscular HGB Conc 31 gm/dL (32-36); Mean Corpuscular Hemoglobin 35 pg (26-34); Mean Corpuscular Volume 111 fL (80-100); Monocytes Percent Auto 11.8 % (0.0-11.0); Neutrophils Absolute Auto 3.17 K/uL (1.7-7.0); Neutrophils Percent Auto 56.7 % (42.0-72.0); Platelet Count* 184 K/uL (140-440); RDW Coefficient of Variation % 14.2 % (11.5-15.5); Red Blood Count 2.16 m/uL (4.30-5.90); White Blood Count* 5.59 K/uL (4.50-11.00)
[2023-08-12 00:34] LABS: Hemoglobin* 7.5 gm/dL (13.5-17.5); Slide Review Reflex No
[2023-08-12 00:41] LABS: Troponin, Point-of-Care* 0.05 ng/ml (0.01-0.04)
[2023-08-12 00:44] LABS: Albumin* 3.4 g/dL (3.3-5.0); Chloride* 112 mmol/L (96-114); Sodium* 137 mmol/L (135-149)
[2023-08-12 00:47] LABS: Creatinine* 5.4 mg/dL (0.5-1.5); Est. Creatinine Clearance* 11.78; Estimated Glomerular Filt Rate 10 ml/min
[2023-08-12 00:48] LABS: Alanine Aminotransferase* 13 U/L (4-50); Alkaline Phosphatase* 79 U/L (40-150); Anion Gap 7 mEq/L (7-15); Aspartate Amino Transferase* 36 U/L (12-35); Bilirubin Total* 0.8 mg/dL (0.1-1.5); Blood Urea Nitrogen* 103 mg/dL (7-30); Calcium* 8.7 mg/dL (8.4-10.6); Carbon Dioxide* 18 mmol/L (20-32); Glucose* 72 mg/dL (60-115); Total Protein* 7.3 g/dL (6.0-8.3)
[2023-08-12 00:49] LABS: Ethanol* < 0.01 % (0.01-0.03)
[2023-08-12 00:50] LABS: C Reactive Protein* 7.6 mg/dL (0.5-1.0); Potassium* 6.2 mmol/L (3.6-5.1)
[2023-08-12] MEDS: 0.9 % SODIUM CHLORIDE 1000 ml 1,000 ML 500 ML IV (00:53)
--- OUTSIDE RECORDS SUMMARY | 2023-08-12 00:59 | XMS_ITS | Referral Summary ---
Author Organization [place] Address [address] [place] [address] Care Team Providers Care Steward/Stewardess Second Name Role Phone Alfredo Starr MD Primary Care Provider [phone] Elif Souza MD Unavailable Unavailable Encounters Date Type Department Care Team Description 06/15/2023 Travel 06/15/2023 1:14 PM CDT - 06/15/2023 11:59 PM CDT Hospital Encounter [facility] [place] [address] [place] [address] [address] [place] [address] Mellisa Hill PA-C Right groin [...] Care Team (Late st Contact Info) Description 09/08/2023 1:30 PM CDT Appointment [facility] [place] [address] [place] [address] Oseas Ta W, DISK AND TAPE MACHINE TENDER CARBONATION TESTER [address] [place] [address] Procedures Procedure Name Priority Date/Time Associated Diagnosis Comments CTA CHEST WITH CONTRAST Routine 03/10/2014 8:06 PM BAG MAKING MACHINE TENDER from Last 3 Months or Most Recently Relevant to Health Maintenance Care Teams Steward/Stewardess Second Relationship Specialty Start Date End Date Alfredo Starr MD PCP - General Family Practice 12/11/14 Elif Souza MD Resident Student in organized health care education/training program 12/11/14
--- OUTSIDE RECORDS SUMMARY | 2023-08-12 00:59 | XMS_ITS | Encounter Summary ---
Author Organization [place] Address [address] [facility] [place] [address] Care Team Providers Care Classroom Assistant Name Role Phone Alfredo Starr MD Primary Care Provider [phone] Elif Souza MD Unavailable Unavailable Reason for Visit * Reason Comments WOUND CARE Encounter Details Date Type Department Care Team (Late st Contact Info) Description 06/15/2023 1:14 PM CDT - 06/15/2023 11:59 PM CDT Hospital Encounter [facility] [place] [address] [place] [address] Mellisa Hill PA-C [facility] [address] [facility] [place] [address] Right groin ulcer, with fat [...] -Darleen will try and get records from [facility] to get a better history of your wound -Follow with a director outcomes to look at lesions on head and face and left leg. [facility] [phone]. Located in [place]. Could Call PCP for further recommendations in [facility]. Wound Dressing Change: Right Groin - [...] PA-C June 15, 2023 Call us at [phone] if you have any questions about your [...] that on your patient satisfaction survey form [facility] will be sending you. It [...] any billing related questions please call the [facility] Business office at [phone].The clinic staff does not handle billing related [...] from the original note were not included. [facility] ASSESSMENT: Full thickness ulcer [...] why. Will attempt to obtain records from [facility] to get better picture of the history of this area and whether or not he was radiated there. It is unclear why he would have radiation in this area if he has nohistory of skin cancer there. If sweating is part of the picture I would consider using drysol locally in an attempt to minimize this Recommended he see a director outcomes for the suspicious lesions on his scalp, [...] for details. He states it was in [place] VITALS: BP 95/62 (BP Location: Left arm, [...] 2.4 cm^3 06/15/23 131 Wound healing % -00744.33 06/15/23 131 Drainage Characteristics/Odor sanguineous 06/15/231316 Drainage [...] -Darleen will try and get records from [facility] to get a better history of your wound -Follow with a director outcomes to look at lesions on head and face and left leg. [facility]: [phone]. Located in [place]. Could Call PCP for further recommendations in [facility]. Wound Dressing Change: Right Groin - [...] PA-C June 15, 2023 Call us at [phone] if you have any questions about your [...] that [facility]. It [...] any billing related questions please call the [facility] Business office at [phone].The clinic staff does not handle billing related [...] Info) Description 09/08/2023 1:30 PM CDT Appointment [facility] [place] [address] [place] [address] Oseas Ta, CRIME PREVENTION WORKER HEAT TREAT TECHNICIAN [address] [place] [address] documented as of this encounter Visit Diagnoses Diagnosis Right groin ulcer, with fat layer exposed (H)- Primary documented in this encounter Care Teams Classroom Assistant Relationship Specialty Start Date End Date Alfredo Starr MD PCP - General Family Practice 12/11/14 Elif Souza MD Resident Student in organized health care education/training program 12/11/14 documented as of this encounter
--- OUTSIDE RECORDS SUMMARY | 2023-08-12 00:59 | XMS_ITS | Clinical Summary ---
Author Organization [email or web address] Address [place], [place] [address] Care Team Providers Care Reinforcing Steel Machine Operator Name Role Phone Alfredo Starr MD Primary Care Provider [phone] Allergies Active Allergy Reactions Criticality Noted Date [...] Pain was well controlled here on dilaudid TEXTILE MACHINERY SALES REPRESENTATIVE on following regimen: LOADING DOSE: 0.2 mg for 1 dose TEXTILE MACHINERY SALES REPRESENTATIVE BOLUS DOSE: 0.2-0.3 mg LOCKOUT INTERVAL: 10 [...] Care Agent(s): Primary Health Care Agent: Jo Peirce Relationship: Life Partner Secondary Health Care Agent: [...] 3-15-10 05/06/2009 Cardiomyopathy , ischemic; old inf OR 05/02/2009 Overview: Per preop, EF of 39% [...] Comments Blood Pressure 123/73 04/16/2014 2:19 PM AIRCRAFT STEEL FABRICATOR Pulse 115 04/16/2014 2:19 PM AIRCRAFT STEEL FABRICATOR Temperature 38.3 ??C (100.9 ??F) 04/16/2014 3:[address] Respiratory Rate 20 04/16/2014 2:19 PM AIRCRAFT STEEL FABRICATOR Oxygen Saturation 94% 04/16/2014 2:19 PM AIRCRAFT STEEL FABRICATOR Inhaled Oxygen Concentration - - Weight 86.1 kg (189 lb 13.1 oz) 04/16/2014 5:00 AM AIRCRAFT STEEL FABRICATOR Height 180.3 cm (5' 10.98) 04/02/2014 12:00 AM AIRCRAFT STEEL FABRICATOR Body Mass Index 26.49 04/02/2014 12:00 AM AIRCRAFT STEEL FABRICATOR Plan of Treatment Health Maintenance Due Date [...] 65+ 10/24/2023 Medical Devices Implanted Type Area Facilities Planner Device Identifier Shelf Expiration Date Model / Serial / Lot [id number] [[id number]] Implanted:Qty: 1 on 06/24/2010 at [facility] Explanted:at [facility] (Quantity not on file) Spine Medtronic 11/05/2012 [id number]# / [id number] / [id number] [[id number]][[id number]] Implanted:Qty: 1 on 06/24/2010 at [facility] Explanted:at [facility] (Quantity not on file) Spine Medtronic 11/05/2012 [id number]# / [id number] / [id number] tty Progenix Dbm 1cc [[id number]][[id number]] Implanted:Qty: 1 on 06/24/2010 at [facility] Explanted:at [facility] (Quantity not on file) Spine Medtronic 11/28/2011 [id number]# / [id number] / Plate 42.5mm Zephir - [id number] Implanted:Qty: 1 on 06/24/2010 at [facility] N/A: Spine SOFAMOR DANEK [id number]# / / Screw Self Drilling 4.0x15mm - [id number] Implanted:Qty: 1 on 06/24/2010 at [facility] N/A: Spine SOFAMOR DANEK [id number]# / / Screw Self Drilling 3.5x15mm - [id number] Implanted:Qty: 4 on 06/24/2010 at [facility] N/A: Spine SOFAMOR DANEK [id number]# / / Screw Locking Fixed 4.84p39lh - [id number] Implanted:Qty: 1 on 03/17/2012 at [facility] Left: Shoulder BIOMET [id number]# / / [id number] Glenosphere 41mm Std Co Cr Comprehensive - [id number] Implanted:Qty: 1 on 03/17/2012 at [facility] Left: Shoulder BIOMET [id number]# / / [id number] Screw 6.5x35mm Rev - [id number] Implanted:Qty: 1 on 03/17/2012 at [facility] Left: Shoulder BIOMET [id number]# / / [id number] Bearing Humeral 44 -41 +3 Arcom Xl - [id number] Implanted:Qty: 1 on 03/17/2012 at [facility] Left: Shoulder BIOMET [id number]# / / [id number] Stem Hum Sz13 Comprehensive Mini Co Cr - [id number] Implanted:Qty: 1 on 03/17/2012 at [facility] Left: Shoulder BIOMET [id number]# / / [id number] Glenosphere Mini Baseplate Implanted:Qty: 1 on 03/17/2012 at [facility] Left: Shoulder [id number] / / [id number] Description:GLENOSPHERE MINI BASEPLATE Humeral Tray Implanted:Qty: 1 on 03/17/2012 at [facility] Left: Shoulder [id number] / / [id number] Description:HUMERAL TRAY Screw Locking 4.68r51fm Fixed - [id number] Implanted:Qty: 1 on 03/17/2012 at [facility] Left: Shoulder BIOMET [id number]# / / [id number] Screw Locking Fixed 4.28k54eu - [id number] Implanted:Qty: 1 on 03/17/2012 at [facility] Left: Shoulder BIOMET [id number]# / / [id number] Screw Locking Fixed 4.41h83jc - [id number] Implanted:Qty: 1 on 03/17/2012 at [facility] Left: Shoulder BIOMET [id number]# / / [id number] Explanted Type Area Facilities Planner Device Identifier Shelf Expiration Date Model / Serial / Lot Patch Vasc 0.8x8cm Xenosure Biological Pericardial - [id number] Explanted:Qty: 1 on 03/09/2014 at [facility] Right: Leg [employer] 0.8P8# / / [id number] Advance Directives Documents on File Type Date Recorded Patient [employer]vil[employer] Expl anation Healthcare Directive 05/12/2009 Healthcare Directive [...] 12:44 PM 03/19/2012 4:35 PM Care Teams Reinforcing Steel Machine Operator Relationship Specialty Start Date End Date Alfredo Starr MD PCP - General 11/13/08
--- OUTSIDE RECORDS SUMMARY | 2023-08-12 00:59 | XMS_ITS | Continuity of Care Document ---
Author Organization [facility] Address [address] [place] [address] Phone Care Team Providers Care Stratigrapher Name Role Phone Jonathan ALVAREZ, Amivenancio Unavailable [...] 2015 Office/Outpatient Visit,Est, Mod 2013 [place] [facility] [place] Exam Of Neck Spine, 4+ Views Neck Spine Fuse & Removal Addl 11 Addl Neck Spine Fusion Insert spine fix dev, ant, 2-3 seg Allograft, spine surg, structural Autograft, spine surgery, local 011 Allograft, spine surg, morselized Pre Op Office/outpatient visit, 011 X-ray exam of neck spine2-3 views Office/outpatient visit,est, mod 2010 Office/outpatient visit,new, [facility] 2010 Advance Directives Directive Yes / No Effective Date File Name No Information Encounters Encounter Description Practice Location Reason(s) For Visit Diagnoses Date Provider Providers Copied on Encounter Office/Outpa tient Visit,Est, Mod [facility], [address], [place], [place], [id number], [place] tel:[phone] [facility] 6 Mehbod Nasreenr. [facility], [address], [place], [place], [id number], [place]. tel:[phone] Office/Outpa tient Visit,Est, Mod [facility], [address], [place], [place], [id number], [place] tel:[phone] [facility] 6 Eckryanni Alberto. [address] [facility] [address], [place], [place], [id number], [place]. tel:[phone] Office/Outpa tient Visit,Est, Mod [facility], [address], [place], [address], [place] tel:[phone] [facility] CERVICAL[facility] 0 4 Eckryanni Alberto. [address] [facility] [address] [address], [place], [id number], [place]. tel:[phone] Referring Provider: Alfredo Rubio, [facility] [address] [place], [address]. tel:[phone] Office/Outpa tient Visit,New, Mod [facility], [address], [place], [address], [place] tel:[phone] [facility] No Information 0 4 Ecmilagros Dominguez. [address] [place] [address], [place], [id number], [place]. tel:[phone] Referring Provider: Alfredo Rubio, [facility] [address] [place], [address]. tel:[phone] Z [facility], [address], [place], [address], [place] tel:[phone] [facility] No Information 1 No Information Referring Provider: Alfredo Rubio, [facility] [address] [place], [address]. tel:[phone] Pre Op Office/outpa tient visit, Z [facility], [address], [place], [address], [place] tel:[phone] [employer] No Information June-0 1 No Information Referring Provider: Alfredo Rubio, [facility] [address] [place], [address]. tel:[phone] Office/outpa tient visit,est, mod [facility], [address], [place], [address], [place] tel:[phone] [employer] No Information 0 1 No Information Referring Provider: Alfredo Rubio, [facility] [address] [place], [address]. tel:[phone] Office/outpa tient visit,new, mod [facility], [address], [place], [address], [place] tel:[phone] [employer] No Information 1 No Information Referring Provider: Alfredo Rubio, [facility] [address] [place], [address]. tel:[phone] Family History Family Member Type Diagnosis Age [...] Order: Radiology Order barbie Complete 2+ Views ([id number]), Ordered on: Ordered History Of Present Illness Encounter Date Complaint History Of Prese nt Illness No Information Functional Status Date Functional Assessmen t No Information Instructions Date Instruction Additional Infor mation No Information Assessments Type Assessment Date assessment Cervicalgia Patient Care Teams Name Effective Dates (start - stop) Status Members No Information
--- OUTSIDE RECORDS SUMMARY | 2023-08-12 00:59 | XMS_ITS | Encounter Summary ---
Author Organization [facility] Address [address] [facility] [place] [address] Care Team Providers Care Machine Zipper Trimmer Name Role Phone Alfredo Starr MD Primary Care Provider [phone] Elif Souza MD Unavailable Unavailable Encounter Details [...] Info) Description 09/08/2023 1:30 PM CDT Appointment [facility] [place] [id number] [facility] [address] [place] [phone] Oseas Ta, CLEANING PROFESSIONAL RETARDER OPERATOR [address] [place] [address] documented as of this encounter Visit Diagnoses Not on filedocumented in this encounter Care Teams Machine Zipper Trimmer Relationship Specialty Start Date End Date Alfredo Starr MD PCP - General Family Practice 12/11/14 Elif Souza MD Resident Student in organized health care education/training program 12/11/14 documented as of this encounter
--- OUTSIDE RECORDS SUMMARY | 2023-08-12 00:59 | XMS_ITS | Clinical Summary ---
Author Organization [facility] Address [address] [facility] [place] [address] Care Team Providers Care Utility Gelatin Maker Name Role Phone Alfredo Starr MD Primary Care Provider [phone] Elif Souza MD Unavailable Unavailable Allergies Active [...] 06/15/2023 11:59 PM CDT Hospital Encounter [facility] [address] [place] [address] Mellisa Hill PA-C Right groin ulcer, [...] Info) Description 09/08/2023 1:30 PM CDT Appointment [facility] [address] [place] [phone] Oseas Ta, DIRECTOR OF MARKET ANALYSIS DISTRIBUTOR OPERATOR [address] [place] [address] Health Maintenance Due Date Last Done Comments [...] CHEST WITH CONTRAST Routine 03/10/2014 8:06 PM INFORMATION SERVICES MANAGER from Last 3 Months or Most Recently Relevant to Health Maintenance Care Teams Utility Gelatin Maker Relationship Specialty Start Date End Date Alfredo Starr MD PCP - General Family Practice 10/20/15 Elif Souza MD Resident Student in organized health care education/training program 12/11/14
[2023-08-12 01:23] LABS: NT Pro B Type NatriureticPept* 1560 pg/mL; Troponin I* 0.06 ng/mL (0.01-0.04)
[2023-08-12 01:35] LABS: INR 7.78 (0.91-1.10); Prothrombin Time 72.2 Seconds
[2023-08-12 02:32] LABS: Chloride* 114 mmol/L (96-114); Sodium* 139 mmol/L (135-149)
[2023-08-12 02:35] LABS: Creatinine* 5.2 mg/dL (0.5-1.5); Est. Creatinine Clearance* 12.23; Estimated Glomerular Filt Rate 10 ml/min
[2023-08-12 02:36] LABS: Anion Gap 8 mEq/L (7-15); Blood Urea Nitrogen* 96 mg/dL (7-30); Calcium* 8.3 mg/dL (8.4-10.6); Carbon Dioxide* 17 mmol/L (20-32); Glucose* 64 mg/dL (60-115)
[2023-08-12 02:51] LABS: Potassium* 6.2 mmol/L (3.6-5.1)
[2023-08-12 03:02] LABS: Fecal Occult Blood* Positive (Negative)
--- NOTE | 2023-08-12 05:11 | W.PM.THH&P_ITS ---
Telehealth- H&P: HPI History of Present Illness Date Seen: 08/12/23 Chief complaint: Weakness with Anemia and Hyperkalemia Narrative: Tl Lugo is seen as an Interactive Telehealth visit. Tl Lugo is a 83 year old male who was brought into the emergency room by EMS after he activated his life alert button. 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 Tl is a somewhat poor historian and is difficult to get a recent history. Apparently, over the last 4 days he has been having some increased weakness and actually states that he had a fall last week. He states he did hit his head but did not have a loss of consciousness. He did call on his [facility] button and the EMS apparently came and evaluated him. At that time he refused to come into the hospital. Over the last week he has been having some increasing weakness to the point that he is unable to do his ADLs and again pressed his Lif[facility] button and was brought into the emergency room by EMS for evaluation. In the emergency room he was evaluated and laboratory investigation noted acute kidney injury with hyperkalemia as well as significant anemia. He also seem to have some confusion about recent events. With his multitude of medical problems including his hyperkalemia and acute kidney injury with noted volume depletion/dehydration, he is currently being admitted to the medical service for further evaluation and treatment. At the time I am seeing Tl, he does confirm the above history. He states he has not had any chest pain or shortness of breath. He has not had any abdominal pain. He states his stools are always dark and have not changed recently. He states that he went to see a applications intern last week and this is why he has the wounds on his scalp and right cheek. He does complain of some chronic back pain which is not worsened per his report. He states he normally gets around on a scooter and wheelchair, but recently due to his weakness he has not been able to transfer and has not been able to do his ADLs. He states he quit smoking last week after smoking at least 4 cigars/day and denies any alcohol usage. He otherwise denies any other acute complaints or problems at the time I am seeing him, but again, is a poor historian. Review of Systems Status of ROS: Reports: 10 or more systems reviewed and unremarkable except as noted in History and below [facility] Medical History Open wound ?T14.8XXA - Other injury of unspecified body region, initial encounter (ICD- 10) Non-healing wound Ulcer of right leg ?L97.919 - Non-pressure chronic ulcer of unspecified part of right lower leg with unspecified severity (ICD-10) History of alcoholism (03/16/11) ?F10.21 - Alcohol dependence, in remission (ICD-10) Surgical History H/O hernia repair ?Z98.890 - Other specified postprocedural states (ICD-10) ?Z87.19 - Personal history of other diseases of the digestive system (ICD-10) History of surgery on lower extremity ?Z98.890 - Other specified postprocedural states (ICD-10) Status post reverse total replacement of left shoulder ?Z96.612 - Presence of left artificial shoulder joint (ICD-10) Status post above-knee amputation of right lower extremity ?Z89.611 - Acquired absence of right leg above knee (ICD-10) Social History What is your current living situation?: I presently have a place to live Problems where you live: no known problems Problems where you live details: n/a In the past 12 months, utilities in danger of being shut off: no In past 12 months, lack of transportation kept you from medical appts, meetings, work, or getting things needed for daily living: no In the past 12 mos, have been you worried that your food would run out before you had money to buy more?: never true In the past 12 mos, the food you bought just didn't last and you didn't have money to buy more?: never true Smoking Status: Current every day smoker What tobacco products do you use: cigars How often do you have a drink containing alcohol: never AUDIT-C Alcohol total score: 0 Non-prescribed substance use: denies use Caffeine: Yes How often does anyone, including family, friends and others, physically hurt you : never How often does anyone, including family, friends and others, insult or talk down to you: never How often does anyone, including family, friends and others, threaten you with harm: never How often does anyone, including family, friends and others, scream or curse at you: rarely Little interest or pleasure in doing things: not at all Feeling down, depressed, or hopeless: not at all service: No Meds Home Medications and Allergies Home Medications ?Medication ?Instructions ?Recorded ?Confirmed ?Type ibuprofen 200 mg tablet 200 mg PO Q6-8H PRN 10/16/21 05/12/23 History aspirin 81 mg tablet,delayed 81 mg PO QDAY 06/09/22 05/12/23 History release Allergies Allergy/AdvReac Type Severity Reaction Status Date / Time latex Allergy Mild Rash Verified 05/12/23 15:00 Exam Narrative Exam Narrative: Physical Exam GENERAL: vital signs reviewed, in no distress HEENT: pupils are equal round and reactive to light, extraocular movements are grossly within normal limits and oral mucosa is dry. There is dressing over the lesion on the superior aspect of his scalp also on his right cheek which looks to be from recent dermatology or plastic surgery biopsy. NECK: Supple without lymphadenopathy or thyromegaly according to nursing staff examination observation HEART: Regular rate and rhythm without any rubs, murmurs or gallops. LUNGS: Clear to auscultation bilaterally with good air movement throughout ABDOMEN: Observation from nurse assisted exam, abdomen appears soft with minimal tenderness in the mid epigastric area, otherwise nondistended with Positive bowel sounds noted. EXTREMITIES: Strength does seem to be globally decreased in his left lower extremity and bilateral upper extremities. He does have noted AKA on the right with +1 edema on the left. SKIN: Observed warm and dry with color normal NEURO: Alert, awake and oriented ?3. Answers all questions appropriately. No focal neuro deficits are noted other than the difficulty remembering recent events. PSYCH: Affect flat Const Vital Signs, click to edit/add: Vital Signs - 24 hr 08/12/23 00:02 08/12/23 00:12 08/12/23 00:26 Temperature 97.8 F Pulse Rate 92 Pulse Rate [Pulse Oximeter] 102 H Respiratory Rate 18 20 Blood Pressure 79/51 L Blood Pressure [Left Arm] Blood Pressure [Right Upper Arm] 81/51 L Pulse Oximetry 95 97 55 L Oxygen Delivery Method Room Air 08/12/23 00:41 08/12/23 00:44 08/12/23 01:21 Temperature Pulse Rate 98 92 94 Pulse Rate [Pulse Oximeter] Respiratory Rate 20 20 20 Blood Pressure 72/43 L 74/48 L 76/48 L Blood Pressure [Left Arm] Blood Pressure [Right Upper Arm] Pulse Oximetry 90 90 Oxygen Delivery Method 08/12/23 01:41 08/12/23 01:45 08/12/23 02:15 Temperature Pulse Rate 94 98 97 Pulse Rate [Pulse Oximeter] Respiratory Rate 18 16 Blood Pressure 86/57 L 91/55 L Blood Pressure [Left Arm] Blood Pressure [Right Upper Arm] Pulse Oximetry 68 L 94 94 Oxygen Delivery Method 08/12/23 02:16 08/12/23 02:21 08/12/23 02:41 Temperature Pulse Rate 97 97 98 Pulse Rate [Pulse Oximeter] Respiratory Rate 20 20 20 Blood Pressure 91/55 L 90/55 L 88/50 L Blood Pressure [Left Arm] Blood Pressure [Right Upper Arm] Pulse Oximetry 96 92 95 Oxygen Delivery Method 08/12/23 03:01 08/12/23 03:24 08/12/23 03:25 Temperature 97.8 F 97.8 F Pulse Rate 96 Pulse Rate [Pulse Oximeter] 95 95 Respiratory Rate 20 20 20 Blood Pressure 88/56 L Blood Pressure [Left Arm] Blood Pressure [Right Upper Arm] 90/58 L 90/58 L Pulse Oximetry 91 91 Oxygen Delivery Method Room Air 08/12/23 04:03 Temperature 97.4 F L Pulse Rate Pulse Rate [Pulse Oximeter] 95 Respiratory Rate 18 Blood Pressure Blood Pressure [Left Arm] 92/58 L Blood Pressure [Right Upper Arm] Pulse Oximetry 93 Oxygen Delivery Method Room Air Hospitalist - H&P: Result Labs Labs: Short CBC 08/12/23 Range/Units 00:20 WBC 5.59 (4.50-11.00) K/uL Hgb 7.5 L* (13.5-17.5) gm/dL Hct 23.9 L (37.0-53.0) % Plt Count 184 (140-440) K/uL BMP 08/12/23 08/12/23 00:20 02:10 Sodium 137 139 Potassium 6.2 H* 6.2 H* Chloride 112 114 Carbon Dioxide 18 L 17 L BUN 103 H 96 H Creatinine 5.4 H 5.2 H Glucose 72 64 Calcium 8.7 8.3 L Cardiac Enzymes 08/12/23 Range/Units 00:20 Troponin I 0.06 H* (0.01-0.04) ng/mL Liver Function 08/12/23 Range/Units 00:20 Total Bilirubin 0.8 (0.1-1.5) mg/dL AST 36 H (12-35) U/L ALT 13 (4-50) U/L Alkaline Phosphatase 79 (40-150) U/L Albumin 3.4 (3.3-5.0) g/dL ECG Attestation: I personally reviewed and interpreted this ECG as follows: Interpretation: Sinus rhythm with evidence of previous anterolateral infarct and no other sign of acute ischemia or infarction noted currently. Imaging Chest x-ray: Attestation: I have reviewed the pertinent imaging results. Radiologist's impression: IMPRESSION: Diffusely increased interstitial lung markings may represent pulmonary edema or fibrotic changes. Assessment and Plan Assessment and plan (1) Acute hyperkalemia: Status: Acute (2) Weakness: Status: Acute (3) Supratherapeutic INR: Status: Acute (4) Severe anemia: Status: Acute (5) Renal failure (ARF), acute on chronic: Status: Acute Plan Assessment: 1. Weakness with inability to do ADLs 2. Volume depletion/dehydration 3. Acute kidney injury likely due to #2 above with history of chronic kidney disease stage III 4. Significant anemia with unknown baseline and current positive guaiac stools 5. History of DVT with Leiden factor V heterozygous mutation currently on Coumadin with supratherapeutic INR question contribution #4 6. Right cheek and scalp wound likely due to recent dermatology or plastic surgery biopsy with previous history of skin lesions 7. 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 Hypertension 9. Hyperlipidemia 10. Intertrigo with chronic groin wound Plan: At this time Tl has been admitted to the medical service. I do believe a large part of his weakness may be due to his significant anemia along with his dehydration and acute kidney injury. At this time I will continue him with a fairly aggressive volume repletion with ongoing IV fluids for volume resuscitation. I will watch his kidney function closely and with his acute hyperkalemia, I will give some IV calcium gluconate and also some oral Lokelma for treatment. Hopefully with some volume resuscitation, his acute kidney injury and hyperkalemia will resolve. I will continue to monitor his hemoglobin closely as it does seem like he has a chronic anemia and this is most likely due to his chronic medical conditions. If he continues to drop his hemoglobin, I will transfuse 1 unit of packed red blood cells for his symptomatic anemia and may have to further investigate if it does worsen. He has been given some oral vitamin K in the emergency room and will need to watch his INR closely with a therapeutic INR between 2.0 and 3.0 for his heterozygous Leiden factor V and previous history of DVT. He did state that he had a fall about a week ago and does have some confusion now. I will ask for a CT scan of the head to make sure he is not having symptoms of a subdural hematoma, especially with his supratherapeutic INR currently. Will need to continue to monitor his cheek and scalp wounds for any signs of infection. I do believe these were done for lesions on his scalp and cheek that were noted in previous examination by his primary care physician. I will ask pharmacy to reconcile his home medications and will hold any nephrotoxic medications currently with his acute kidney injury. I will order some nystatin powder for his intertrigo and will need to watch his chronic groin wound for infection. I have discussed this plan with Tl and he is agreeable to proceed. Will continue to follow closely from medical standpoint in this complicated individual. I did discuss CODE STATUS with Tl and he does wish to be DNI/DNR and this will be ordered in his chart. Telehealth: Statement Statement Telehealth Visit: Today's History and Physical is provided via interactive telehealth by Marshal Dunlap MD.? Patient is located at [facility].? Provider is located at [facility].? Nursing staff assisted with the patient's exam. The visit being done today meets criteria for a telehealth visit and the patient or patient?s parent/guardian is aware the visit is a telehealth visit. Camera Start Time: 04:26 Camera End Time: 04:48
[2023-08-12] MEDS: 0.9 % SODIUM CHLORIDE 1000 ml 1,000 ML 125 ML IV ×3 (05:22→20:08)
--- NOTE | 2023-08-12 05:23 | CRLHL7_ITS ---
For Patients: As a result of the Century Cures Act, medical imaging exams and procedure reports are released immediately into your electronic medical record. You may view this report before your referring provider. If you have questions, please contact your health care provider. INDICATION: Fall, confusion TECHNIQUE: Noncontrast axial CT of the head. Coronal and sagittal reformats. Bone and soft tissue algorithms. COMPARISON: CT head report 02/20/2019 FINDINGS: The bony calvarium appears grossly intact. No acute intracranial hemorrhage or abnormal extra-axial fluid collection identified. No midline shift, hydrocephalus or herniation. Generalized cerebral volume loss. Scattered hypoattenuation throughout the supratentorial white matter typical of mild-moderate chronic microangiopathy. Preserved mak-white matter differentiation. Calcific intracranial atherosclerotic plaquing. Unremarkable midline structures. Clear paranasal sinuses and mastoid air cells. Unremarkable orbits. IMPRESSION: No skull fracture or acute intracranial hemorrhage identified. Please note that all CT scans at this facility use dose modulation, iterative reconstruction, and/or weight-based dosing when appropriate to reduce radiation dose to as low as reasonably achievable. Dictated by Michelle Quintana MD @ 08/12/2023 3:06:43 PM (Electronically Signed)
[2023-08-12] MEDS: SODIUM ZIRCONIUM CYCLOSILICATE 10 GM PO (05:59)
[2023-08-12] MEDS: CALCIUM GLUC 1,000MG/50 ML 1,000 MG/50 ML BAG 100 MG IVPB (06:00)
[2023-08-12 06:34] LABS: Hemoglobin* 4.7 gm/dL (13.5-17.5)
[2023-08-12 06:40] LABS: Chloride* 115 mmol/L (96-114); Sodium* 138 mmol/L (135-149)
[2023-08-12 06:43] LABS: Anion Gap 8 mEq/L (7-15); Blood Urea Nitrogen* 95 mg/dL (7-30); Carbon Dioxide* 15 mmol/L (20-32); Creatinine* 4.8 mg/dL (0.5-1.5); Est. Creatinine Clearance* 13.25; Estimated Glomerular Filt Rate 12 ml/min; Glucose* 63 mg/dL (60-115)
[2023-08-12 06:44] LABS: Calcium* 8.6 mg/dL (8.4-10.6)
--- NOTE | 2023-08-12 06:58 | PC.NURSE ---
Phlebotomy Technician received critical value lab Hemoglobin result of 4.7 received via phone call from lab at 0635. Pulse of 99 and B/P of 79/47 noted at 0639. aviation manager and patient's primary RN were updated. aviation manager notified Haylie Neumann who gave telephone orders entered by dry pan charger.
--- NOTE | 2023-08-12 07:18 | PC.NURSE ---
Arrived to floor at 0315. A&O although quite forgetful. Pt expresses unhappiness with every intervention done but cooperative in the end. Pressures are soft but VS otherwise stable. Critically low HBG this morning. MD contacted. Repeat HBG.
[2023-08-12 07:22] LABS: Prothrombin Time 51.7 Seconds
[2023-08-12 07:24] LABS: INR 5.15 (0.91-1.10)
[2023-08-12 08:07] LABS: Appearance Urine Clear (Clear); Bilirubin Urine 1+ (Negative); Blood Urine 1+ (Negative); Color Urine Yellow (Yellow); Glucose Urine Negative (Negative); Ketones Urine 1+ (Negative); Leukocyte Esterase Urine Negative (Negative); Nitrite Urine Negative (Negative); Protein Urine 1+ (Negative); Urobilinogen Urine 0.2 (0.2-1.0); pH Urine 5.5 (5.0-8.5)
[2023-08-12 08:17] LABS: Amphetamine Screen Urine Negative (Negative); Barbiturate Screen Urine Negative (Negative); Benzodiazepines Screen Urine Negative (Negative); Cannabinoid Screen Urine Negative (Negative); Cocaine Screen Urine Negative (Negative); Methadone Screen Urine Negative (Negative); Methamphetamines Screen Urine Negative (Negative); Opiate Screen Urine Negative (Negative); Oxycodone Screen Urine Negative (Negative); Phencyclidine Screen Urine Negative (Negative); Tricyclic Antidepressant Urine Negative (Negative)
[2023-08-12 08:17] LABS: Troponin I* 0.04 ng/mL (0.01-0.04)
[2023-08-12] MEDS: SODIUM CHLORIDE 0.9 % (FLUSH) 10 ML SYRINGE 5 ML IVF (08:25)
[2023-08-12] MEDS: GABAPENTIN 300 MG CAPSULE 600 MG PO ×3 (08:27→21:35)
--- NOTE | 2023-08-12 08:55 | REH.PT ---
PT order received. Evaluation held per PA request due to medical status. Will recheck tomorrow.
[2023-08-12] MEDS: 0.9 % SODIUM CHLORIDE 250 ml IV (08:59)
--- NOTE | 2023-08-12 11:31 | REH.OT ---
OT received Order to consult. Per MD., evaluation is on hold until pt. is medically appropriate.
[2023-08-12 11:33] LABS: Hemoglobin* 8.1 gm/dL (13.5-17.5)
[2023-08-12 11:42] LABS: Chloride* 117 mmol/L (96-114); Sodium* 139 mmol/L (135-149)
[2023-08-12 11:43] LABS: Potassium* 5.9 mmol/L (3.6-5.1)
[2023-08-12 11:45] LABS: Anion Gap 8 mEq/L (7-15); Carbon Dioxide* 14 mmol/L (20-32); Creatinine* 4.2 mg/dL (0.5-1.5); Est. Creatinine Clearance* 15.14; Estimated Glomerular Filt Rate 14 ml/min
[2023-08-12 11:46] LABS: Blood Urea Nitrogen* 89 mg/dL (7-30); Calcium* 8.5 mg/dL (8.4-10.6); Glucose* 62 mg/dL (60-115); INR 2.42 (0.91-1.10); Prothrombin Time 28.2 Seconds
--- NOTE | 2023-08-12 13:37 | PM.CCEN ---
Critical Care Event Note Summary Time Seen by Provider: 07:00 Date Seen: 08/12/23 Code activated: No Narrative: I was called about this patient at 6:40 a.m. this morning on my way in to work. Patient had been admitted to the medical floor approximately 2 hours prior. Charge nurse informed me systolic pressures were in the 70s. Hemoglobin in the ED was 7.5, on redraw on the floor 4.7. A 3rd draw was in process to confirm this. Current INR 5.15, following a dose of vitamin K, previously 7.78 in the ED, potassium 6.0 following a dose of Lokelma, previously 6.2 in the ED. Creatinine 5.2, previously 5.4 in the ED. I was told he had a large bloody bowel movement in the ED. I am not able to confirm this in reviewing the EMR though he does have a positive FOBT. But not sure if this was done on a rectal exam. I asked the charge nurse to change patient to critical care status, start a 1 L bolus normal saline, order 2 units PRBC pending repeat hemoglobin, and place a General surgery consult. On my arrival to the floor, patient is lying in bed, alert, responsive. Current systolic 80s (he tells me this is normal for him). Heart rate 90s. Oxygen saturation 90s on room air. Patient is oriented to self and place. Not sure that he is not otherwise mildly confused. He is his own medical decision maker. He has no family he would like contacted. He has a neighbor, Analisa, that he allows us to speak with. In conversation with Analisa and the patient, she tells us that Tl was at her house on Wednesday and fell without injury. EMS was called to the home. She recalls his systolic blood pressure being less than 100 and has diastolic being 47. Patient refused transport to ED at that time. She tells me he slipped out of bed on Wednesday night where she and her son responded and was able to get him back in the bed. Her son stayed with him that night. He tells me he called EMS on his own this time feeling very weak. Denies any new falls. No new trauma. He has dried blood over his scalp and face with Band-Aids which he tells me was due to an experiment. Analisa tells me he was at [facility] earlier this week for biopsies. In discussion with patient and Analisa on how we are planning to manage this, patient is in agreement to a blood transfusion, he is willing to use pressors if needed. He confirms he is otherwise DNR/DNI. Patient takes Coumadin but does not have his INR checked monthly. Last INR was on 05/12/2023 and was 1.9 at that time. He is currently taking 3 mg nightly. He is also taking ibuprofen twice daily for low back pain. Tells me no one has ever told him to avoid NSAIDs while on Coumadin. Additionally, a baby aspirin daily. Holding home atorvastatin, furosemide, lisinopril, warfarin, aspirin. Discontinue ibuprofen. Continue gabapentin. Following an additional normal saline bolus, systolics are noted to be in the 90s. His 1st unit PRBC is hung. Despite this, systolics again trending 80s and 70s. Norepinephrine infusion started. Initially, patient refused a 2nd IV but did agree so we had further access. Pressures improved with norepinephrine. Repeat hemoglobin after 1st unit PRBC is 8.1. Platelets 184. INR has trended down to 2.42. Discussed with pharmacy, will hold Coumadin dose tonight. Will also discuss with patient prior to discharge, starting NOAC rather than continuing on Coumadin. Repeat potassium is 5.9. Creatinine 4.2. BUN trending down. Patient has stabilized enough that a CT head and CT lumbar spine will be completed to rule out brain bleed or other acute etiology as well as rule out lumbar injury with chronic pain. Will recheck hemoglobin at 4:00 p.m. following 2nd unit PRBC. Repeat BMP at that time. This information is signed out to my evening colleague. This case had a high probability of a clinically significant, sudden, or life threatening deterioration of this patient's condition which required my full and direct attention, intervention and personal management. Critical care time: 30 - 74 mins
--- NOTE | 2023-08-12 14:04 | PC.SOCIAL ---
Discharge planning: tip out worker will plan to meet with pt on Saturday 08/12. Pt is still pretty ill today and has not been able to participate in physical therapy or occupational therapy. Social work to follow-up as needed.
--- NOTE | 2023-08-12 14:06 | CRLHL7_ITS ---
For Patients: As a result of the Century Cures Act, medical imaging exams and procedure reports are released immediately into your electronic medical record. You may view this report before your referring provider. If you have questions, please contact your health care provider. Indication: Back pain Technique: Noncontrast axial CT of the lumbar spine with coronal and sagittal reformats. Comparison: CT pelvis report 04/06/2022 Findings: Normal static alignment of the lumbar spine. No significant spondylolisthesis. Mild chronic anterior wedge configuration of T12. Remaining vertebral body heights are grossly maintained. No acute fracture identified. Chronic bilateral 12th rib fractures. Scattered spondylosis, greatest at L4-5, with disc bulge and facet arthropathy/ligamentum flavum laxity contributes to mild-moderate spinal canal narrowing and at least moderate right neural foraminal stenosis. Bilateral adrenal masses, measuring at least 11 cm on the left, 5 cm on the right. Aortoiliac atherosclerotic plaquing with infrarenal aortic ectasia measuring 3.6 cm transverse diameter. Bony ankylosis across the bilateral SI joints. Impression: 1. No acute osseous abnormality of the lumbar spine. Chronic bilateral 12th rib fractures. Lumbar spondylosis as detailed. 2. Large bilateral adrenal masses, 11 cm on the left, 5 cm on the right. Clinical correlation advised. Adrenal protocol CT or MRI could be obtained for further characterization. 3. Aneurysmal infrarenal aortic ectasia. Please note that all CT scans at this facility use dose modulation, iterative reconstruction, and/or weight-based dosing when appropriate to reduce radiation dose to as low as reasonably achievable. Dictated by Michelle Quintana MD @ 08/12/2023 3:24:32 PM (Electronically Signed)
--- NOTE | 2023-08-12 14:43 | PC.NURSE ---
End of shift [id number]: Upon arrival, pt became unit status. Initially BP had been maintaining in the 80s-70s-/50s-40s. 1L NS bolus x2 given with no change. Pt is A&O and afebrile. Uncooperative and rude comments at times but no verbal or physical abuse concerns. LS CTA and HRR. Wounds x2 on left scalp and right cheek, pt has refused to allow staff to clean up the wounds and take the current saturated band-aids off. He required 1-2L NC d/t de-satting down to 70s% on RA while asleep. Pt has ongoing back pain rating 8/10, CT of lumbar spine and head done @ 1430. Hgb 7.0 this AM; he received x2 units RBC?s with recheck of 8.1; no signs of transfusion reaction. Next Hgb check is @ 1600. PIV in left AC C/D/I and PIV in left FA C/D/I. Right AKA stump clean & intact. Noticeable rash in groin. Pt has been continent of B&B. Urine is dark milla in color & he has been passing gas. No BM today. TELE reads NSR w/ 1st degree block, rate in the 80s-90s bpm. Norepinephrine gtt started @ 1055 at 0.1 mcg/kg/min (31.64 mL/hr). Maintenance IVF infusing NS @ 125 mL/hr. Once NorEpi gtt initiated & transfusions complete, BP has maintained 90s-100s/60s-70s. ?
--- NOTE | 2023-08-12 15:50 | PC.SOCIAL ---
Social work: Received call from nevaeh [employer] Elderly Waiver worker at [facility], . She shared that she has been working with pt for quite a while and knows him well. She shared that he has been able to make his own decisions and manage his own medications. She shared that he does not talk to anyone in his actual family, but considers his friend, Analisa and her son Will to be family. Tia confirmed pt lives at [facility] alone and that he has been set up with home delivered meals in the past which he has cancelled after a time and also with mobile home laborer services which he has cancelled. He currently only has [employer] through his waiver services. Tia requested to be contacted when a discharge plan is determined and states she would be available to assist with increasing services at home through his waiver, if needed and if pt agrees. Tia stated she has a good relationship with pt and would be available to assist case management social worker in discussing discharge plans with pt, as pt has been reluctant to have services put in place in the past. flying squad worker to follow up as needed.
[2023-08-12 19:15] LABS: Hemoglobin* 9.4 gm/dL (13.5-17.5)
[2023-08-12 19:43] LABS: Chloride* 119 mmol/L (96-114); Potassium* 5.9 mmol/L (3.6-5.1); Sodium* 142 mmol/L (135-149)
[2023-08-12 19:46] LABS: Anion Gap 10 mEq/L (7-15); Blood Urea Nitrogen* 77 mg/dL (7-30); Carbon Dioxide* 13 mmol/L (20-32); Creatinine* 3.6 mg/dL (0.5-1.5); Est. Creatinine Clearance* 17.66; Estimated Glomerular Filt Rate 16 ml/min
[2023-08-12 19:47] LABS: Calcium* 8.6 mg/dL (8.4-10.6); Glucose* 61 mg/dL (60-115)
--- NOTE | 2023-08-12 23:26 | PC.NURSE ---
[id number]: Patient weaned on Norepinephrine drip this evening. Drip was shut off at 2320. Blood pressure at this time is 109/64. Will continue to monitor. Pt using the urinal at the bedside. Reports pain in his back at 8/10 - Refused the need for anything for pain. Pt states that his scheduled gabapentin seems to help - this was given with some relief. Using ice to back and repositioning as needed. Pt taking in sips of clear liquids. Has not had any stools this shift.
[2023-08-13] VITALS (31 sets, daily range): BP systolic 77–113; BP diastolic 47–78; PULSE 98–136; RESP 16–24; TEMP 36.4–37.6; O2SAT 89–97
[2023-08-13 00:08] LABS: C Reactive Protein* 6.9 mg/dL (0.5-1.0)
[2023-08-13] MEDS: 0.9 % SODIUM CHLORIDE 1000 ml 1,000 ML 125 ML IV ×2 (03:40→12:39)
[2023-08-13 06:41] LABS: Hematocrit 33.4 % (37.0-53.0); Hemoglobin* 10.7 gm/dL (13.5-17.5); Mean Corpuscular HGB Conc 32 gm/dL (32-36); Mean Corpuscular Hemoglobin 33 pg (26-34); Mean Corpuscular Volume 103 fL (80-100); Red Blood Count 3.26 m/uL (4.30-5.90)
[2023-08-13 06:44] LABS: Potassium* 5.5 mmol/L (3.6-5.1); Sodium* 142 mmol/L (135-149)
[2023-08-13 06:47] LABS: Blood Urea Nitrogen* 67 mg/dL (7-30); Carbon Dioxide* 15 mmol/L (20-32); Creatinine* 2.7 mg/dL (0.5-1.5); Est. Creatinine Clearance* 23.55; Estimated Glomerular Filt Rate 23 ml/min
[2023-08-13 06:48] LABS: Calcium* 8.6 mg/dL (8.4-10.6); Glucose* 61 mg/dL (60-115)
[2023-08-13 06:50] LABS: C Reactive Protein* 8.6 mg/dL (0.5-1.0); INR 1.21 (0.91-1.10)
[2023-08-13 06:51] LABS: Prothrombin Time 16.1 Seconds
[2023-08-13 07:07] LABS: Platelet Count* 82 K/uL (140-440); Slide Review Reflex Yes
[2023-08-13 07:08] LABS: Slide Review Acceptable Review (Acceptable)
[2023-08-13 07:11] LABS: Anion Gap 6 mEq/L (7-15); Chloride* 121 mmol/L (96-114)
--- NOTE | 2023-08-13 07:22 | PC.NURSE ---
END OF SHIFT NOTE: PT RELAXED AND COOPERATIVE. A&OX3. DENIES CP, SOB, N/V. PT HAS BEEN ON BEDREST THIS SHIFT DUE TO HYPOTENSION. VSS ON RA; AFEBRILE. BED ALARM ON AND CALL LIGHT WITHIN PT?S REACH. PT USES URINAL. LEFT FOREARM IV RUNNING NS@125ML/HR. SACRUM RED; MEPILEX APPLIED.?PT BP?S SOFT. TACHYCARDIC 99-106BPM.
[2023-08-13] MEDS: GABAPENTIN 300 MG CAPSULE 600 MG PO ×3 (08:07→20:32)
[2023-08-13] MEDS: LIDOCAINE 5% PATCH 1 PATCH TRANSDERMA (08:08)
[2023-08-13] MEDS: APIXABAN 5 MG TABLET 2.5 MG PO ×2 (09:55→20:32)
[2023-08-13 10:03] LABS: Fecal Occult Blood* Negative (Negative)
[2023-08-13] MEDS: 0.9 % SODIUM CHLORIDE 500 ML 500 ML IV ×2 (10:33→13:22)
--- NOTE | 2023-08-13 11:55 | PM.IMPN1 ---
Progress Note: A&P Assessment and plan (1) Hypotension: Problem details: On presentation to ED systolics <80, on admission to floor systolics 80-90 but again dropped to 70s, not responding appropriately to IVF, PRBC In setting of severe anemia, supratherapeutic INR (warfarin and ibuprofen), dehydration, renal dysfunction, as well as large loose stools (08/12). No sepsis Patient agreed to start pressors on admission. Norepinephrine started 08/11, discontinued overnight 08/12 with MAP >62 Telemetry, frequent vitals Hold lisinopril and furosemide Patient reports his normal systolic pressure is usually low, 90-100 not being unusual for him (PCP well visit in April) Will continue with boluses as needed, monitoring for fluid overload, start midodrine b.i.d.. May need to consider re-initiation of norepinephrine Status: Acute (2) Severe anemia: Problem details: Hemoglobin in the ED 7.5, on recheck on arrival to floor 4.7, however redrawn immediately and noted to be 7.0 Transfused 2 units PRBC Hemoglobin noted to trend up 8.1 - 9.4 -10.7 There was communication of a large bloody stool, however no documentation in the ED record, though FOBT +. ?EMS finding Repeat FOBT on 08/12 is negative Holding aspirin. Discontinue ibuprofen - patient educated At this point, follow hemoglobin with morning labs Status: Acute (3) Supratherapeutic INR: Problem details: INR 7.78 in the ED. Received 1 dose vitamin K INR trended down 5.15 - 2.42 - 1.21 Usual home Coumadin dose 3 mg nightly - held Noncompliant with INR checks, last was in April, at that time 1.9 Patient has been taking ibuprofen twice daily for some time for chronic pain stating he was not aware he should not have been taking this while on Coumadin Status: Acute (4) Acute hyperkalemia: Problem details: Potassium 6.2 in ED. Received Lokelma, IVF Potassium has trended down 6.0 - 5.9 - 5.5 Status: Acute (5) Renal failure: Problem details: Acute renal failure, history of CKD, baseline 1.3-1.6 Creatinine in ED 5.4 Trended down 5.2 - 4.8 - 4.2 - 3.6 - 2.7 Hold lisinopril, ibuprofen discontinued, avoid nephrotoxic medications Status: Acute (6) Weakness: Problem details: Generalized, in setting of above. Question baseline PT/OT manager financial services - patient lives independently in his own apartment Status: Acute (7) Falls: Problem details: Unknown how frequent but 2 in the past week without acute trauma Status: Acute (8) Cognitive impairment: Problem details: Obvious during interviews. Apparent that patient is trying to cover this Concerning for compliance with medications, medical needs, INR checks Living independently, has a neighbor Analisa, who assists when needed Currently own medical decision maker. Does not want family involved CT head without evidence of skull fracture or acute intracranial hemorrhage PT/OT, MOCA manager financial services - Elyse spoke with pillowcase sewer on 08/12 Status: Acute (9) Heterozygous factor V Leiden mutation: Problem details: With complications, DVTs, PE, history of AKA 2014 Supratherapeutic INR while on Coumadin, not compliant with INR checks monthly Discussed with pharmacy, reviewed case studies, will start Eliquis 2.5 mg b.i.d. 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 Consider repeat when stable if necessary Status: Acute (12) Hyperlipidemia: Problem details: Holding statin for now Status: Acute (13) HTN (hypertension): Problem details: Holding lisinopril, furosemide If recently chronically low pressures, consider follow-up with PCP prior to re-initiation Status: Acute (14) CKD (chronic kidney disease) stage 3, GFR 30-59 ml/min: Problem details: With acute renal failure as noted above Baseline creatinine 1.3-1.6 Continue management as above Status: Acute (15) Chronic pain: Problem details: Shoulder, low back, left lower extremity phantom pain Recent falls/slipping from bed CT lumbar spine without acute findings Has been taking ibuprofen while on Coumadin - discontinued. Patient educated Lidocaine patch, continue gabapentin, Tylenol p.r.n. Status: Acute (16) Non-healing right groin open wound: Problem details: Previously followed by wound clinic Appears superficial without evidence of surrounding infection Keep clean and dry, Mepilex as needed Status: Acute (17) Facial lesion: Problem details: Right cheek and scalp, was seen at [facility] on 08/08 Will slowly clean up dried blood and apply new bandages Status: Acute (18) Thrombocytopenia: Problem details: Platelets 82 on 08/12, previously 184, monitor Status: Acute (19) Tachycardia: Problem details: 08/12 did become tachycardic 120-130s while up on commode with large loose stools In setting of dehydration, volume loss, anemia, hypotension EKG shows sinus tachycardia Improved with IVF bolus, rest, rate returning to 90-105 while in bed Continue telemetry Status: Acute (20) Adrenal mass: Problem details: Incidental finding. CT shows Large bilateral adrenal masses, 11 cm on the left, 5 cm on the right. Follow up Adrenal protocol CT or MRI could be obtained for further characterization. Status: Acute Time Spent With Patient Total time spent: Total time spent caring for the patient today was 60 minutes. This includes time spent for the visit reviewing the chart, time spent during the visit, time spent after the visit and documentation and planning in coordination of care. Subjective Date Seen: 08/13/23 Interval history: Patient is doing better this morning. Sitting up in bed, alert. I would say he is still confused but he appears to be trying to cover for this. Remains afebrile. Has had no nausea or vomiting. Has remained NPO. Has started to stool which I was able to view and it appears dark green, liquid. He has no complaints other than he wants his finger oxygen monitor removed. He would also like ice cream this morning which he has been requesting since yesterday. Overnight, patient's systolics have improved >100, MAP >62, afebrile, HR 90-105. Norepinephrine drip has been discontinued. He continues on IVF. Hemoglobin has improved to 10.7 following 2 units PRBC. No bloody stools or other cuong bleeding reported. Potassium improved to 5.5, BUN downtrending. Creatinine improved to 2.7. INR this morning 1.21 following vitamin K reversal. Exam Narrative: Exam Narrative: PHYSICAL EXAM General: Conversant, abrupt in conversation, NAD HEENT: Scalp and right cheek still with dried blood following dermatology biopsy, and days and place Cardiovascular: RRR, S1S2. No pitting edema Pulmonary: CTA bilaterally without rhonchi, rales, expiratory wheezes. No dyspnea on room air Abdominal: Soft, nondistended, NTTP Neurological: Alert, answering questions appropriately, cranial nerves intact, no focal findings Extremities: AKA RLE. Neurovascularly intact Skin: Warm, dry. Right groin with superficial wound without surrounding erythema, no bleeding or drainage. Scabbed lesion left lower extremity, chronic, without erythema, swelling, nontender Const: Vital Signs, click to edit/add: Vital Signs - 24 hr 08/12/23 11:58 08/12/23 12:25 08/12/23 12:30 Temperature 98.5 F 98.5 F Pulse Rate 96 Pulse Rate [Pulse Oximeter] 100 100 Respiratory Rate 16 16 16 Blood Pressure 102/57 L Blood Pressure [Ri ght Arm] 103/86 102/57 L Pulse Oximetry 97 97 96 Oxygen Delivery Me thod Nasal Cannula Nasal Cannula Oxygen Flow Rate 1 1 08/12/23 13:00 08/12/23 13:29 08/12/23 13:30 Temperature 98.5 F Pulse Rate 96 Pulse Rate [Pulse Oximeter] 91 95 Respiratory Rate 16 16 16 Blood Pressure 109/61 Blood Pressure [Ri ght Arm] 95/59 L 109/61 Pulse Oximetry 97 97 95 Oxygen Delivery Me thod Nasal Cannula Nasal Cannula Oxygen Flow Rate 1 1 08/12/23 14:00 08/12/23 14:30 08/12/23 15:00 Temperature 98.9 F Pulse Rate Pulse Rate [Pulse Oximeter] 95 100 93 Respiratory Rate 16 16 15 Blood Pressure Blood Pressure [Ri ght Arm] 108/70 114/71 88/56 L Pulse Oximetry 98 95 97 Oxygen Delivery Me thod Nasal Cannula Room Air Room Air Oxygen Flow Rate 1 08/12/23 15:00 08/12/23 15:00 08/12/23 15:30 Temperature Pulse Rate 96 Pulse Rate [Pulse Oximeter] 94 96 Respiratory Rate 16 Blood Pressure Blood Pressure [Ri ght Arm] 111/57 L Pulse Oximetry 98 Oxygen Delivery Me thod Room Air Oxygen Flow Rate 08/12/23 16:00 06/20/24 16:30 08/12/23 17:00 Temperature 99.5 F Pulse Rate Pulse Rate [Pulse Oximeter] 95 94 94 Respiratory Rate 16 16 16 Blood Pressure Blood Pressure [Ri ght Arm] 100/59 L 99/56 L 103/57 L Pulse Oximetry 95 94 95 Oxygen Delivery Me thod Room Air Room Air Room Air Oxygen Flow Rate 08/12/23 17:30 08/12/23 18:00 08/12/23 18:30 Temperature 99.1 F Pulse Rate Pulse Rate [Pulse Oximeter] 98 91 92 Respiratory Rate 16 18 Blood Pressure Blood Pressure [Ri ght Arm] 99/57 L 86/54 L 117/71 Pulse Oximetry 98 96 95 Oxygen Delivery Me thod Room Air Room Air Room Air Oxygen Flow Rate 08/12/23 19:00 08/12/23 19:00 08/12/23 19:30 Temperature Pulse Rate 96 Pulse Rate [Pulse Oximeter] 92 94 Respiratory Rate 18 18 Blood Pressure Blood Pressure [Ri ght Arm] 124/69 119/78 Pulse Oximetry 97 96 Oxygen Delivery Me thod Room Air Room Air Oxygen Flow Rate 08/12/23 20:00 08/12/23 20:30 08/12/23 20:56 Temperature 98.8 F Pulse Rate Pulse Rate [Pulse Oximeter] 94 94 96 Respiratory Rate 18 18 Blood Pressure Blood Pressure [Ri ght Arm] 121/71 117/68 119/65 Pulse Oximetry 96 96 Oxygen Delivery Me thod Room Air Room Air Oxygen Flow Rate 08/12/23 21:16 08/12/23 21:30 08/12/23 21:48 Temperature Pulse Rate Pulse Rate [Pulse Oximeter] 98 96 95 Respiratory Rate 18 18 18 Blood Pressure Blood Pressure [Ri ght Arm] 119/63 107/72 109/72 Pulse Oximetry 96 95 94 Oxygen Delivery Me thod Room Air Room Air Room Air Oxygen Flow Rate 1 08/12/23 22:00 08/12/23 22:15 08/12/23 22:34 Temperature Pulse Rate Pulse Rate [Pulse Oximeter] 96 96 94 Respiratory Rate 18 18 18 Blood Pressure Blood Pressure [Ri ght Arm] 93/67 119/63 121/72 Pulse Oximetry 94 92 94 Oxygen Delivery Me thod Room Air Oxygen Flow Rate 08/12/23 23:00 08/12/23 23:30 08/13/23 00:00 Temperature Pulse Rate Pulse Rate [Pulse Oximeter] 96 104 H 101 H Respiratory Rate 18 18 20 Blood Pressure Blood Pressure [Ri ght Arm] 109/70 105/60 100/57 L Pulse Oximetry 94 94 95 Oxygen Delivery Me thod Room Air Room Air Room Air Oxygen Flow Rate 08/13/23 00:30 08/13/23 01:00 08/13/23 01:25 Temperature 98.6 F Pulse Rate 103 H Pulse Rate [Pulse Oximeter] 102 H 103 H Respiratory Rate 20 20 Blood Pressure Blood Pressure [Ri ght Arm] 110/60 110/66 Pulse Oximetry 97 93 Oxygen Delivery Me thod Room Air Room Air Oxygen Flow Rate 08/13/23 01:30 08/13/23 02:00 08/13/23 02:30 Temperature 97.5 F L Pulse Rate Pulse Rate [Pulse Oximeter] 104 H 99 98 Respiratory Rate 20 18 16 Blood Pressure Blood Pressure [Ri ght Arm] 101/57 L 99/61 102/65 Pulse Oximetry 94 94 96 Oxygen Delivery Me thod Room Air Room Air Room Air Oxygen Flow Rate 08/13/23 02:50 08/13/23 03:00 08/13/23 03:30 Temperature 98.1 F 98.5 F Pulse Rate 99 Pulse Rate [Pulse Oximeter] 101 H 101 H Respiratory Rate 16 20 Blood Pressure Blood Pressure [Ri ght Arm] 98/61 96/65 Pulse Oximetry 95 94 Oxygen Delivery Me thod Room Air Room Air Oxygen Flow Rate 08/13/23 04:00 08/13/23 04:30 08/13/23 05:00 Temperature 98.2 F 98.1 F Pulse Rate Pulse Rate [Pulse Oximeter] 101 H 102 H 106 H Respiratory Rate 16 16 16 Blood Pressure Blood Pressure [Ri ght Arm] 104/63 98/56 L 101/69 Pulse Oximetry 94 91 95 Oxygen Delivery Me thod Room Air Room Air Room Air Oxygen Flow Rate 08/13/23 05:30 08/13/23 06:00 08/13/23 06:30 Temperature 98.7 F 99.3 F Pulse Rate Pulse Rate [Pulse Oximeter] 103 H 103 H 105 H Respiratory Rate 16 18 20 Blood Pressure Blood Pressure [Ri ght Arm] 93/65 111/62 109/62 Pulse Oximetry 93 92 93 Oxygen Delivery Me thod Room Air Room Air Room Air Oxygen Flow Rate 08/13/23 07:00 08/13/23 07:30 08/13/23 07:30 Temperature 99.7 F H Pulse Rate 107 H Pulse Rate [Pulse Oximeter] 108 H 108 H Respiratory Rate 20 20 Blood Pressure Blood Pressure [Ri ght Arm] 96/58 L Pulse Oximetry 93 Oxygen Delivery Me thod Room Air Oxygen Flow Rate 08/13/23 10:00 08/13/23 10:00 08/13/23 10:30 Temperature Pulse Rate Pulse Rate [Pulse Oximeter] 124 H 136 H 118 H Respiratory Rate 24 24 20 Blood Pressure Blood Pressure [Ri ght Arm] 81/58 L 85/58 L 98/60 Pulse Oximetry 92 93 93 Oxygen Delivery Me thod Room Air Room Air Room Air Oxygen Flow Rate 08/13/23 11:00 08/13/23 11:30 Temperature Pulse Rate 122 H Pulse Rate [Pulse Oximeter] 111 H Respiratory Rate Blood Pressure Blood Pressure [Ri ght Arm] 102/60 Pulse Oximetry Oxygen Delivery Me thod Oxygen Flow Rate Labs Labs: Laboratory Results - last 24 hr 08/12/23 08/12/23 08/12/23 00:20 19:10 23:20 WBC RBC Hgb 9.4 L Hct MCV MCH MCHC Plt Count Diff Slide Review INR Sodium 142 Potassium 5.9 H Chloride 119 H Carbon Dioxide 13 L Anion Gap 10 BUN 77 H Creatinine 3.6 H Estimated Creat Clear 17.66 Estimated GFR 16 Glucose 61 Calcium 8.6 C-Reactive Protein 6.9 H Stool Occult Blood Crossmatch ([facility]) See Detail 08/13/23 08/13/23 06:20 09:52 WBC 4.60 RBC 3.26 L Hgb 10.7 L Hct 33.4 L MCV 103 H MCH 33 MCHC 32 Plt Count 82 L Diff Slide Review Acceptable Review INR 1.21 H Sodium 142 Potassium 5.5 H Chloride 121 H Carbon Dioxide 15 L Anion Gap 6 L BUN 67 H Creatinine 2.7 H Estimated Creat Clear 23.55 Estimated GFR 23 Glucose 61 Calcium 8.6 C-Reactive Protein 8.6 H Stool Occult Blood Negative Crossmatch ([facility])
[2023-08-13] MEDS: MIDODRINE HCL 5 MG TABLET PO (13:20)
--- NOTE | 2023-08-13 14:45 | PC.SOCIAL ---
Discharge planning: Met with pt regarding d/c plan. Pt lives alone in his apartment at [facility] [address] [facility]. Pt hopes to be able to return to his apartment at discharge. If he needs a short term rehab stay, he would want that to be at [facility]. Asked pt if he has an advanced healthcare directive completed. Pt states he does not. Asked pt if he has thought about who he would want to make his decisions about his healthcare treatment if he is unable to make those decisions himself. Pt states he would want his friend Silvano, who is Analisa's son, to make decisions for him. Offered to provide pt with a Healthcare Care Directive form to have this notarized. Pt states he is not interested in completing this at this time. Called and spoke with pt's friend, Analisa. She confirmed that if pt needs a short term rehab facility at discharge, [facility] would be the first choice. Confirmed with Analisa that pt does not have an Advanced Healthcare Directive completed. She states she does not think he has one. Analisa stated she will ask her son Will and have will call back with his contact phone number so that this can be added to pt's chart. Analisa shared that starting Wednesday, she will be out of town for two weeks, but Will is in town and could be primary contact during that time. Updated [facility] shoe caser with a message stating pt is not ready for discharge and may need a short term rehab stay at discharge. Called Liv at [facility] and sent information for evaluation for admit to short term rehab if needed at discharge. Liv replied they expect to have bed for this patient on Wednesday and will plan to review updated medical information on Wednesday to make sure they can still accept him if ready for discharge. order worker to follow up as needed
--- NOTE | 2023-08-13 19:48 | PC.NURSE ---
Nursing Care Hours: [phone] Pt this shift calm and cooperative. Alert and oriented to person, month and year. Forgetful of place, thinking that he is at his apartment. Stable on room air. Tachycardic and hypotensive. Monitoring BP frequently. Boluses given x2 per order. EKG done for pulse of 125 sustained while up in chair and decreased after bolus. SCD on left leg. Small open area to R glute noted, covered with Mepilex, chronic wound to right groin open to air and kept dry. Advanced diet to regular, tolerating well. Using EZ stand to move from bed to chair and chair to BSC. 2 loose stools. No c/o pain when asked but winces and becomes distressed when moving in bed, c/o back pain. Lidocaine in place. Visitors x2 visited today.
[2023-08-13] MEDS: 5 % DEXTROSE/0.9% SOD CHLORIDE 1,000 ML 125 ML IV (20:20)
[2023-08-13] MEDS: SODIUM CHLORIDE 0.9 % (FLUSH) 10 ML SYRINGE 5 ML IVF (20:32)
[2023-08-13] MEDS: HYDROCORTISONE SOD SUCCINATE 50 MG/ML inj 100 MG IVP (20:37)
[2023-08-14] VITALS (22 sets, daily range): BP systolic 83–123; BP diastolic 56–79; PULSE 96–109; RESP 16–24; TEMP 36.1–36.9; O2SAT 87–95
[2023-08-14] MEDS: HYDROCORTISONE SOD SUCCINATE 50 MG/ML inj IVP ×4 (01:58→22:04)
[2023-08-14] MEDS: 5 % DEXTROSE/0.9% SOD CHLORIDE 1,000 ML 125 ML IV (04:06)
--- NOTE | 2023-08-14 06:15 | PC.NURSE ---
End of shift [id number]: Pt has been alert & oriented to self only. Disoriented to time or place. HRR and LS CTA. VSS with exception to SBP dropping into the 70s-80s. initiated CCU status with the start of Norepinephrine gtt @ 2010. Pt?s BP maintained in low 100s/50s-60s. Verbal order to stop NorEpi @ 2335 and to resume if MAP < 65 overnight. Pt has been consistently incontinent of urine overnight, no BM. Still awaiting C. Diff collection. He required 1-3L O2 via NC to maintain sats > 90% while asleep. Barrier cream applied to groin folds and Mepilex intact on coccyx. TELE reads SR-ST with 1st degree heart block and occasional BBB. IVF was changed from NaCl to D5 @ 125 ml/hr. Pt was started on IV Solu-Cortef q6H. Bandages intact on right cheek and left scalp. PIV in left FA and left AC C/D/I. Despite confusion, pt was cooperative with cares & slept well in between interruptions overnight. Plan to discharge to [facility] for STR Wednesday if pt is medically stable.?
[2023-08-14 06:35] LABS: Lactate* 1.3 mmol/L (0.5-1.9)
[2023-08-14 06:42] LABS: Hemoglobin* 8.9 gm/dL (13.5-17.5); Mean Corpuscular HGB Conc 32 gm/dL (32-36); Mean Corpuscular Hemoglobin 33 pg (26-34); Mean Corpuscular Volume 103 fL (80-100); Platelet Count* 146 K/uL (140-440); Red Blood Count 2.73 m/uL (4.30-5.90)
[2023-08-14 07:01] LABS: Slide Review Reflex No
[2023-08-14 07:03] LABS: Chloride* 124 mmol/L (96-114); Potassium* 5.2 mmol/L (3.6-5.1); Sodium* 143 mmol/L (135-149)
[2023-08-14 07:06] LABS: Creatinine* 1.8 mg/dL (0.5-1.5); Est. Creatinine Clearance* 35.33; Estimated Glomerular Filt Rate 37 ml/min
[2023-08-14 07:07] LABS: Anion Gap 2 mEq/L (7-15); Blood Urea Nitrogen* 45 mg/dL (7-30); Calcium* 8.5 mg/dL (8.4-10.6); Carbon Dioxide* 17 mmol/L (20-32); Glucose* 205 mg/dL (60-115)
[2023-08-14 07:22] LABS: C Reactive Protein* 13.9 mg/dL (0.5-1.0)
[2023-08-14 08:08] LABS: Troponin I* 0.03 ng/mL (0.01-0.04)
[2023-08-14] MEDS: SODIUM CHLORIDE 0.9 % (FLUSH) 10 ML SYRINGE 5 ML IVF ×3 (08:45→20:27)
[2023-08-14 09:08] LABS: Vitamin B12* 372 pg/mL (243-894)
[2023-08-14 09:10] LABS: NT Pro B Type NatriureticPept* 9070 pg/mL
[2023-08-14] MEDS: LIDOCAINE 5% PATCH 1 PATCH TRANSDERMA (09:12)
[2023-08-14] MEDS: GABAPENTIN 300 MG CAPSULE 600 MG PO ×3 (09:13→20:26)
[2023-08-14] MEDS: ENOXAPARIN 100 MG/ML INJ SUBCUT (13:55)
--- NOTE | 2023-08-14 15:10 | P.IMPN_ITS ---
Progress Note: A&P Assessment and plan (1) Acute adrenal crisis: Problem details: Clinically a presents with acute adrenal crisis with hypotension, hyperkalemia, altered mental status, low blood sugar, bilateral adrenal masses on CT. Taper and transition to oral steroids over the next few days. Will need outpatient endocrine evaluation Status: Acute (2) Metabolic encephalopathy: Problem details: Altered mental status on admission has much improved with treatment of adrenal crisis Status: Acute (3) GI bleed: Problem details: Uncertain history of outpatient bleeding. Hemoccult positive on admission but subsequently no evidence of ongoing bleeding. Received blood transfusion for severe anemia. Obtain EGD. Hold apixaban until EGD Status: Acute (4) Severe anemia: Problem details: Hemoglobin in the ED 7.5, on recheck on arrival to floor 4.7, however redrawn immediately and noted to be 7.0 Transfused 2 units PRBC Hemoglobin noted to trend up 8.1 - 9.4 -10.7 There was communication of a large bloody stool, however no documentation in the ED record, though FOBT +. ?EMS finding Repeat FOBT on 08/12 is negative Holding aspirin. Discontinue ibuprofen - patient educated At this point, follow hemoglobin with morning labs Status: Acute (5) Renal failure: Problem details: Likely due to combination of factors including hypotension, ibuprofen use, GI bleeding. Much improved. Status: Acute (6) Acute hyperkalemia: Problem details: Potassium 6.2 in ED. Received Lokelma, IVF Potassium has trended down 6.0 - 5.9 - 5.5 Likely due to adrenal insufficiency and renal insufficiency Status: Acute (7) Weakness: Problem details: Generalized, in setting of above. 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 CT shows Large bilateral adrenal masses, 11 cm on the left, 5 cm on the right. Obtain adrenal protocol CT to further evaluate. Status: Acute (10) Nocturnal hypoxia: Problem details: Suspect sleep apnea. Monitor for other causes including heart failure/pneumonia Status: Acute (11) Cognitive impairment: Problem details: On admission had metabolic encephalopathy. Unclear how much of his cognitive issues are due to that verses chronic progressive neuro degenerative disease and/or dementia. [place] pending Status: Acute (12) Thrombocytopenia: Problem details: Platelets 82 on 08/12, previously 184, monitor Status: Acute (13) Chronic pain: Problem details: Shoulder, low back, left lower extremity phantom pain Recent falls/slipping from bed CT lumbar spine without acute findings Has been taking ibuprofen while on Coumadin - discontinued. Patient educated Lidocaine patch, continue gabapentin, Tylenol p.r.n. Status: Acute (14) Hypotension: Problem details: On admission had hypotension. Received fluid resuscitation, blood transfusion and then pressors. In addition to blood loss causing anemia and hypotension it was felt he had adrenal insufficiency. 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 Previously on warfarin but somewhat noncompliant now put on apixaban Status: Acute (19) Pulmonary embolism: Problem details: Lifelong anticoagulation with apixaban Status: Acute (20) Phantom limb pain: Status: Acute (21) Coronary atherosclerosis: Status: Acute (22) Chronic systolic CHF (congestive heart failure): Problem details: Holding furosemide and lisinopril Monitor for fluid overload in setting of transfusions and IVF Last echocardiogram noted 2014. Consider repeat when stable if necessary Status: Acute (23) Non-healing right groin open wound: Status: Acute (24) Long-term (current) use of anticoagulants, INR goal 2.0-3.0: Problem details: History of heterozygous factor 5 Leiden, DVTs, PE, AKA 2014 secondary to occluded stent. Warfarin reversed. Decision to moved to apixaban, renally dosed for DVT/VTE prophylaxis. Apixaban held pending upper endoscopy Status: Acute (25) HTN (hypertension): Problem details: Holding lisinopril, furosemide If recently chronically low pressures, consider follow-up with PCP prior to re- initiation Status: Acute (26) Hyperlipidemia: Problem details: Restart statin Status: Acute (27) Heterozygous factor V Leiden mutation: Problem details: With complications, DVTs, PE, history of AKA 2014 Supratherapeutic INR while on Coumadin, not compliant with INR checks monthly Discussed with pharmacy, reviewed case studies, will start Eliquis 2.5 mg b.i.d. Status: Acute (28) CKD (chronic kidney disease) stage 3, GFR 30-59 ml/min: Problem details: With acute renal failure as noted above Baseline creatinine 1.3-1.6 Continue management as above Status: Acute (29) Discharge planning issues: Problem details: Wants to return to his apartment. Not yet independently transferring. Status: Acute Plan Continue in hospital pending further evaluation and treatment of adrenal insufficiency, hypotension, acute kidney injury, electrolyte abnormalities including hyperkalemia and metabolic acidosis. Time Spent With Patient Total time spent: Critical care time is 60 minutes spent with patient and his medical record Subjective Date Seen: 08/14/23 Interval history: Admission HPI: Tl Lugo is a 83 year old male who was brought into the [facility] room by EMS after he activated his life alert button. 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 Tl is a somewhat poor historian and is difficult to get a recent history. Apparently, over the last 4 days he has been having some increased weakness and actually states that he had a fall last week. He states he did hit his head but did not have a loss of consciousness. He did call on his [facility] button and the EMS apparently came and evaluated him. At that time he refused to come into the hospital. Over the last week he has been having some increasing weakness to the point that he is unable to do his ADLs and again pressed his Lif[facility] button and was brought into the emergency room by EMS for evaluation. In the emergency room he was evaluated and laboratory investigation noted acute kidney injury with hyperkalemia as well as significant anemia. He also seem to have some confusion about recent events. With his multitude of medical problems including his hyperkalemia and acute kidney injury with noted volume depletion/dehydration, he is currently being admitted to the medical service for further evaluation and treatment. At the time I am seeing Tl, he does confirm the above history. He states he has not had any chest pain or shortness of breath. He has not had any abdominal pain. He states his stools are always dark and have not changed recently. He states that he went to see a mobile home laborer last week and this is why he has the wounds on his scalp and right cheek. He does complain of some chronic back pain which is not worsened per his report. He states he normally gets around on a scooter and wheelchair, but recently due to his weakness he has not been able to transfer and has not been able to do his ADLs. He states he quit smoking last week after smoking at least 4 cigars/day and denies any alcohol usage. He otherwise denies any other acute complaints or problems at the time I am seeing him, but again, is a poor historian. At the time of admission he was hypotensive. He received IV fluid resuscitation, blood transfusion and norepinephrine for blood pressure support. Blood pressure initially improved. It was felt that he had adrenal insufficiency given his hypotension, altered mental status, hyperkalemia, bilateral adrenal masses. He was started on intravenous hydrocortisone D5 NS and had significant improvement in his mental status and blood pressure, renal function and electrolytes with these treatments. On admission he had a hemoglobin of 7.5. With fluids resuscitation this dropped to 4.7. He received blood transfusion and hemoglobin improved to around 9 in the last day. He has had no active bleeding. On admission he had an INR of 7.78. He received vitamin K and his INR dropped to 1.2 yesterday. Yesterday he was started on apixaban for VTE prophylaxis ongoing. Due to planned endoscopy his apixaban was held and he was given 1 dose of Lovenox 100 mg this morning. Exam Narrative: Exam Narrative: He is alert and appears in no distress. He gives his own history. He is observed to eat lunch fairly well. Respirations are clear to auscultation. Cardiovascular: S1, S2, regular rate and rhythm. Abdomen: Bowel sounds active. Abdomen is soft without tenderness or mass. Very small area of erythema and shallow ulceration in the right inguinal fold. Mild decubitus ulcer formation or over the sacrum. Left lower extremity with intact pulses and no significant edema Const: Vital Signs, click to edit/add: Vital Signs - 24 hr 08/13/23 19:00 08/13/23 19:00 08/13/23 19:00 Temperature 98.3 F Pulse Rate 111 H Pulse Rate [Pulse Oximeter] 107 H 106 H Respiratory Rate 18 18 Blood Pressure [Le ft Arm] Blood Pressure [Ri ght Arm] 77/57 L Pulse Oximetry 89 Oxygen Delivery Me thod Room Air Oxygen Flow Rate 08/13/23 21:35 08/13/23 22:00 08/13/23 23:00 Temperature 98 F Pulse Rate 109 H Pulse Rate [Pulse Oximeter] 106 H 104 H Respiratory Rate 18 18 Blood Pressure [Le ft Arm] Blood Pressure [Ri ght Arm] 109/78 112/47 L Pulse Oximetry 92 94 Oxygen Delivery Me thod Room Air Nasal Cannula Oxygen Flow Rate 4 2 08/13/23 23:00 08/14/23 00:00 08/14/23 01:09 Temperature 98.2 F Pulse Rate Pulse Rate [Pulse Oximeter] 101 H 106 H Respiratory Rate 18 18 Blood Pressure [Le ft Arm] Blood Pressure [Ri ght Arm] 111/69 83/58 L Pulse Oximetry 93 Oxygen Delivery Me thod Nasal Cannula Oxygen Flow Rate 2 08/14/23 02:00 08/14/23 03:00 08/14/23 03:00 Temperature 98.2 F Pulse Rate 97 Pulse Rate [Pulse Oximeter] 102 H 96 Respiratory Rate 18 18 Blood Pressure [Le ft Arm] Blood Pressure [Ri ght Arm] 100/56 L Pulse Oximetry 94 Oxygen Delivery Me thod Nasal Cannula Oxygen Flow Rate 2 08/14/23 03:00 08/14/23 04:00 08/14/23 05:00 Temperature 97.1 F L Pulse Rate Pulse Rate [Pulse Oximeter] 99 Respiratory Rate 16 Blood Pressure [Le ft Arm] Blood Pressure [Ri ght Arm] 98/59 L 104/62 98/75 Pulse Oximetry 90 Oxygen Delivery Me thod Nasal Cannula Oxygen Flow Rate 3 08/14/23 06:00 08/14/23 06:17 08/14/23 06:25 Temperature Pulse Rate Pulse Rate [Pulse Oximeter] 103 H Respiratory Rate 16 Blood Pressure [Le ft Arm] Blood Pressure [Ri ght Arm] 123/78 Pulse Oximetry 95 91 88 Oxygen Delivery Me thod Nasal Cannula Room Air Room Air Oxygen Flow Rate 2 08/14/23 06:25 08/14/23 07:00 08/14/23 07:00 Temperature Pulse Rate Pulse Rate [Pulse Oximeter] 109 H Respiratory Rate 16 16 Blood Pressure [Le ft Arm] Blood Pressure [Ri ght Arm] Pulse Oximetry 94 93 Oxygen Delivery Me thod Nasal Cannula Room Air Oxygen Flow Rate 2 08/14/23 07:30 08/14/23 07:39 08/14/23 08:36 Temperature Pulse Rate 97 Pulse Rate [Pulse Oximeter] 99 109 H Respiratory Rate 16 Blood Pressure [Le ft Arm] Blood Pressure [Ri ght Arm] 122/78 98/70 Pulse Oximetry 91 91 Oxygen Delivery Me thod Room Air Room Air Oxygen Flow Rate 08/14/23 09:30 08/14/23 11:00 08/14/23 11:36 Temperature 98.4 F Pulse Rate Pulse Rate [Pulse Oximeter] 103 H 96 107 H Respiratory Rate 20 20 Blood Pressure [Le ft Arm] 119/70 Blood Pressure [Ri ght Arm] 88/59 L Pulse Oximetry 87 L 90 Oxygen Delivery Me thod Room Air Room Air Oxygen Flow Rate 08/14/23 12:20 08/14/23 12:35 Temperature Pulse Rate 101 H Pulse Rate [Pulse Oximeter] 96 Respiratory Rate Blood Pressure [Le ft Arm] 118/71 Blood Pressure [Ri ght Arm] Pulse Oximetry 91 Oxygen Delivery Me thod Room Air Oxygen Flow Rate Documenting provider has reviewed patient's vital signs: yes Labs Labs: Laboratory Results - last 24 hr 08/12/23 08/14/23 08/14/23 00:20 06:13 07:43 WBC 3.00 L RBC 2.73 L Hgb 8.9 L Hct 28.0 L MCV 103 H MCH 33 MCHC 32 Plt Count 146 Sodium 143 Potassium 5.2 H Chloride 124 H Carbon Dioxide 17 L Anion Gap 2 L BUN 45 H Creatinine 1.8 H Estimated Creat Clear 35.33 Estimated GFR 37 Glucose 205 H Lactate 1.3 Calcium 8.5 Troponin I 0.03 C-Reactive Protein 13.9 H NT-Pro-B Natriuret Pep 9070 Vitamin B12 372 Lab Acknowledgement Test Added Crossmatch ([facility]) See Detail 08/14/23 07:51 WBC RBC Hgb Hct MCV MCH MCHC Plt Count Sodium Potassium Chloride Carbon Dioxide Anion Gap BUN Creatinine Estimated Creat Clear Estimated GFR Glucose Lactate Calcium Troponin I C-Reactive Protein NT-Pro-B Natriuret Pep Vitamin B12 Lab Acknowledgement Test Added Crossmatch ([facility])
[2023-08-14 15:36] LABS: Hemoglobin* 9.7 gm/dL (13.5-17.5); Immature Reticulocyte Fraction 7.9 % (2.3-13.4); Reticulocyte Hemoglobin Equivi 32.6 pg (29.0-35.0); Reticulocyte Percent 2.6 % (0.5-2.0); Reticulocytes Absolute 0.08 # (0.03-0.08)
--- NOTE | 2023-08-14 18:18 | PC.NURSE ---
End of shift-- Pt has been cooperative and primarily pleasant today. He occasionally appears irritable. VSS, though occasionally hypotensive but MAP has remained >65 throughout the day and occasionally tachycardic with HR in the low 100s, and pt is afebrile. SPO2 maintained >90% on RA while awake but noted to drop as low as 86% on RA while sleeping. 1L O2 applied while sleeping to maintain sats >90%. He denied any pain today. Telemetry shows NSR to Sinus Tachycardia. A few fine crackles noted in posterior left base of lungs today, otherwise CTA. He denied nausea and has had no stools today. He was up to the chair with assist of 2 pivot and/or EZ stand and tolerated it well. Mepilex (x2) to coccyx are C/D/I. Open area noted in right side of groin, barrier cream applied.
[2023-08-14] MEDS: ATORVASTATIN CALCIUM 40 MG TABLET 80 MG PO (20:26)
[2023-08-15] VITALS (10 sets, daily range): BP systolic 121–159; BP diastolic 82–94; PULSE 77–100; RESP 20–24; TEMP 36.1–36.4; O2SAT 91–96
[2023-08-15] MEDS: HYDROCORTISONE SOD SUCCINATE 50 MG/ML inj IVP (06:04)
[2023-08-15 06:52] LABS: Hemoglobin* 8.5 gm/dL (13.5-17.5); Mean Corpuscular HGB Conc 32 gm/dL (32-36); Mean Corpuscular Hemoglobin 33 pg (26-34); Mean Corpuscular Volume 104 fL (80-100); Platelet Count* 164 K/uL (140-440); White Blood Count* 4.85 K/uL (4.50-11.00)
[2023-08-15 06:56] LABS: Chloride* 119 mmol/L (96-114); Sodium* 141 mmol/L (135-149)
[2023-08-15 06:57] LABS: Potassium* 4.1 mmol/L (3.6-5.1)
[2023-08-15 06:59] LABS: Anion Gap 2 mEq/L (7-15); Carbon Dioxide* 20 mmol/L (20-32); Creatinine* 1.5 mg/dL (0.5-1.5); Est. Creatinine Clearance* 42.39; Estimated Glomerular Filt Rate 46 ml/min
[2023-08-15 07:00] LABS: Blood Urea Nitrogen* 35 mg/dL (7-30); Calcium* 8.8 mg/dL (8.4-10.6); Glucose* 165 mg/dL (60-115)
[2023-08-15 07:13] LABS: Slide Review Reflex No
[2023-08-15 08:06] LABS: Thyroid Stimulating Hormone* 0.078 uIU/mL (0.270-4.20)
--- NOTE | 2023-08-15 08:20 | PC.NURSE ---
Patient cooperative with cares. Used urinal in bed. O2 91-93% on room air. BP 121/83. Some hallucinating noted. Denied pain. ?
[2023-08-15] MEDS: FLUDROCORTISONE ACETATE 0.1 MG TABLET PO (09:02)
[2023-08-15] MEDS: LIDOCAINE 5% PATCH 1 PATCH TRANSDERMA (09:02)
[2023-08-15] MEDS: HYDROCORTISONE 10 MG TABLET 40 MG PO ×2 (09:02→17:50)
[2023-08-15] MEDS: GABAPENTIN 300 MG CAPSULE 600 MG PO ×3 (09:02→21:53)
[2023-08-15] MEDS: SODIUM CHLORIDE 0.9 % (FLUSH) 10 ML SYRINGE 5 ML IVF ×2 (09:05→21:54)
[2023-08-15] MEDS: PERFLUTREN LIPID MICROSPHERES 2 ML VIAL IV (10:41)
[2023-08-15] MEDS: ACETAMINOPHEN 325 MG TABLET 650 MG PO (13:15)
--- NOTE | 2023-08-15 13:36 | PM.IMPN1 ---
Progress Note: A&P Assessment and plan (1) Acute adrenal crisis: Problem details: Clinically a presents with acute adrenal crisis with hypotension, hyperkalemia, altered mental status, low blood sugar, bilateral adrenal masses on CT. Taper and transition to oral steroids over the next few days. Will need outpatient endocrine evaluation. Pending CT imaging of adrenals Status: Acute (2) Metabolic encephalopathy: Problem details: Altered mental status on admission has much improved with treatment of adrenal crisis. Appears to have some cognitive impairment at baseline Status: Acute (3) GI bleed: Problem details: Uncertain history of outpatient bleeding. Hemoccult positive on admission but subsequently no evidence of ongoing bleeding. Received blood transfusion for severe anemia. Obtain EGD tomorrow. Hold apixaban until EGD. Status: Acute (4) Severe anemia: Problem details: Hemoglobin in the ED 7.5, on recheck on arrival to floor 4.7, however redrawn immediately and noted to be 7.0 Transfused 2 units PRBC Hemoglobin noted to trend up 8.1 - 9.4 -10.7 There was communication of a large bloody stool, however no documentation in the ED record, though FOBT +. Repeat FOBT on 08/12 is negative Holding aspirin. Discontinue ibuprofen - patient educated Status: Acute (5) Renal failure: Problem details: Likely due to combination of factors including hypotension, ibuprofen use, GI bleeding. Much improved. Creatinine at 5.4 on August 11/admission. Creatinine at 1.5 on August 14. Status: Acute (6) Acute hyperkalemia: Problem details: Potassium 6.2 in ED. Received Lokelma, IVF Potassium has trended down 6.0 - 4.1 over the past 3 days Likely due to adrenal insufficiency and renal insufficiency Status: Acute (7) Weakness: Problem details: Generalized, in setting of above. 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 CT shows Large bilateral adrenal masses, 11 cm on the left, 5 cm on the right. Obtain adrenal protocol CT to further evaluate. Status: Acute (10) Nocturnal hypoxia: Problem details: Suspect sleep apnea. Monitor for other causes including heart failure/pneumonia Status: Acute (11) Cognitive impairment: Problem details: On admission had metabolic encephalopathy. Unclear how much of his cognitive issues are due to that verses chronic progressive neuro degenerative disease and/or dementia. [place] pending Status: Acute (12) Thrombocytopenia: Problem details: Platelets 82 on 08/12, previously 184, monitor Status: Acute (13) Chronic pain: Problem details: Shoulder, low back, left lower extremity phantom pain Recent falls/slipping from bed CT lumbar spine without acute findings Has been taking ibuprofen while on Coumadin - discontinued. Patient educated Lidocaine patch, continue gabapentin, Tylenol p.r.n. No complaints of pain in the last 2 days Status: Acute (14) Hypotension: Problem details: On admission had hypotension. Received fluid resuscitation, blood transfusion and then pressors. In addition to blood loss causing anemia and hypotension, it was felt he had adrenal insufficiency. With hydrocortisone his blood pressure normalized Status: Acute (15) PVD (peripheral vascular disease): Problem details: History of ischemic right lower extremity and AKA due to clot in a stent Status: Acute (16) Basal cell carcinoma (BCC): Problem details: Multiple basal cell carcinomas with remote and recent history of treatment. 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 Previously on warfarin but somewhat noncompliant now put on apixaban Status: Acute (19) Pulmonary embolism: Problem details: Lifelong anticoagulation, now on apixaban rather than warfarin due to poor compliance with monitoring. Status: Acute (20) Phantom limb pain: Status: Acute (21) Coronary atherosclerosis: Status: Acute (22) Chronic systolic CHF (congestive heart failure): Problem details: Holding furosemide and lisinopril Monitor for fluid overload in setting of transfusions and IVF Last echocardiogram noted 2014. Consider repeat when stable if necessary Status: Acute (23) Non-healing right groin open wound: Status: Acute (24) Long-term (current) use of anticoagulants, INR goal 2.0-3.0: Problem details: History of heterozygous factor 5 Leiden, DVTs, PE, AKA 2014 secondary to occluded stent. Warfarin reversed. Decision to moved to apixaban, renally dosed for DVT/VTE prophylaxis. Apixaban held pending upper endoscopy Status: Acute (25) HTN (hypertension): Problem details: Holding lisinopril, furosemide If recently chronically low pressures, consider follow-up with PCP prior to re-initiation Status: Acute (26) Hyperlipidemia: Problem details: Restart statin Status: Acute (27) CKD (chronic kidney disease) stage 3, GFR 30-59 ml/min: Problem details: With acute renal failure as noted above Baseline creatinine 1.3-1.6 Continue management as above Status: Acute (28) Discharge planning issues: Problem details: Wants to return to his apartment. Not yet independently transferring. Status: Acute Plan Continue in hospital for management of acute adrenal crisis, heart disease, anemia, physical and mental disability and plan of disposition. Time Spent With Patient Total time spent: Total time spent today is 50 minutes, 30 minutes in coordination of care discussing with patient and other providers ongoing evaluation management of above problems Subjective Date Seen: 08/15/23 Interval history: Admission HPI: Tl Lugo is a 83 year old male who was brought into the emergency room by EMS after he activated his life alert button. 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 Tl is a somewhat poor historian and is difficult to get a recent history. Apparently, over the last 4 days he has been having some increased weakness and actually states that he had a fall last week. He states he did hit his head but did not have a loss of consciousness. He did call on his [facility] button and the EMS apparently came and evaluated him. At that time he refused to come into the hospital. Over the last week he has been having some increasing weakness to the point that he is unable to do his ADLs and again pressed his Lifeline button and was brought into the emergency room by EMS for evaluation. In the emergency room he was evaluated and laboratory investigation noted acute kidney injury with hyperkalemia as well as significant anemia. He also seem to have some confusion about recent events. With his multitude of medical problems including his hyperkalemia and acute kidney injury with noted volume depletion/dehydration, he is currently being admitted to the medical service for further evaluation and treatment. At the time I am seeing Tl, he does confirm the above history. He states he has not had any chest pain or shortness of breath. He has not had any abdominal pain. He states his stools are always dark and have not changed recently. He states that he went to see a wheel truing machine tender last week and this is why he has the wounds on his scalp and right cheek. He does complain of some chronic back pain which is not worsened per his report. He states he normally gets around on a scooter and wheelchair, but recently due to his weakness he has not been able to transfer and has not been able to do his ADLs. He states he quit smoking last week after smoking at least 4 cigars/day and denies any alcohol usage. He otherwise denies any other acute complaints or problems at the time I am seeing him, but again, is a poor historian. At the time of admission he was hypotensive. He received IV fluid resuscitation, blood transfusion and norepinephrine for blood pressure support. Blood pressure initially improved. It was felt that he had adrenal insufficiency given his hypotension, altered mental status, hyperkalemia, bilateral adrenal masses. He was started on intravenous hydrocortisone D5 NS and had significant improvement in his mental status and blood pressure, renal function and electrolytes with these treatments. On admission he had a hemoglobin of 7.5. With fluids resuscitation this dropped to 4.7. He received blood transfusion and hemoglobin improved to around 9 in the last day. He has had no active bleeding. On admission he had an INR of 7.78. He received vitamin K and his INR dropped to 1.2 yesterday. Yesterday he was started on apixaban for VTE prophylaxis ongoing. Due to planned endoscopy his apixaban was held and he was given 1 dose of Lovenox 100 mg this morning. August 14: Patient reports feeling fine. Specifically denies pain, dyspnea, nausea. Reports he is eating well and bowels are working well. He reports that he is back to baseline with his functioning and strength and transfers. Therapy evaluation shows that he is requiring assist of 2 to transfer bed to chair. Exam Narrative: Exam Narrative: He is alert and appears in no distress. He becomes upset with me when I asked questions about how he is feeling and how he is doing. He has no specific complaints. He does not recall much information from our conversation yesterday. Head is notable for bandages with some dried blood on his scalp from previous skin surgery. Respirations are clear to auscultation with a few basilar crackles. Cardiovascular: S1, S2, regular rate and rhythm. Abdomen is soft without tenderness or mass. No significant edema in his left leg. Const: Vital Signs, click to edit/add: Vital Signs - 24 hr 08/14/23 15:00 08/14/23 15:00 08/14/23 15:00 Temperature Pulse Rate 107 H Pulse Rate [Pulse Oximeter] 101 H Respiratory Rate 24 24 Blood Pressure [Le ft Arm] Blood Pressure [Ri ght Arm] Pulse Oximetry 93 Oxygen Delivery Me thod Room Air 08/14/23 15:31 08/14/23 19:00 08/14/23 23:00 Temperature 96.9 F L 97.7 F 97.3 F L Pulse Rate Pulse Rate [Pulse Oximeter] 101 H 97 99 Respiratory Rate 24 20 18 Blood Pressure [Le ft Arm] 113/69 Blood Pressure [Ri ght Arm] 122/79 113/73 Pulse Oximetry 95 92 93 Oxygen Delivery Me thod Room Air Room Air 08/14/23 23:00 08/15/23 03:00 08/15/23 03:10 Temperature 97.2 F L Pulse Rate 92 Pulse Rate [Pulse Oximeter] 96 Respiratory Rate 18 21 Blood Pressure [Le ft Arm] 121/83 Blood Pressure [Ri ght Arm] Pulse Oximetry 93 91 Oxygen Delivery Me thod Room Air Room Air 08/15/23 07:00 08/15/23 07:00 08/15/23 07:00 Temperature 97.3 F L Pulse Rate Pulse Rate [Pulse Oximeter] 99 99 Respiratory Rate 22 22 22 Blood Pressure [Le ft Arm] 148/84 H Blood Pressure [Ri ght Arm] Pulse Oximetry 94 94 Oxygen Delivery Me thod Room Air Room Air 08/15/23 10:15 08/15/23 12:10 Temperature 97.6 F Pulse Rate 86 Pulse Rate [Pulse Oximeter] 95 Respiratory Rate 24 Blood Pressure [Le ft Arm] 159/94 H Blood Pressure [Ri ght Arm] Pulse Oximetry 95 Oxygen Delivery Me thod Room Air Documenting provider has reviewed patient's vital signs: yes Labs Labs: Laboratory Results - last 24 hr 08/14/23 08/15/23 08/15/23 15:20 06:14 07:15 WBC 4.85 RBC 2.60 L Hgb 9.7 L 8.5 L Hct 27.0 L MCV 104 H MCH 33 MCHC 32 Plt Count 164 Absolute Retic 0.08 Percent Retic 2.6 H Immature Retic Fraction 7.9 Retic Hgb Equivalent 32.6 Sodium 141 Potassium 4.1 Chloride 119 H Carbon Dioxide 20 Anion Gap 2 L BUN 35 H Creatinine 1.5 Estimated Creat Clear 42.39 Estimated GFR 46 Glucose 165 H Calcium 8.8 TSH 0.078 L Free T4 1.10 Lab Acknowledgement Test Added 08/15/23 08:18 WBC RBC Hgb Hct MCV MCH MCHC Plt Count Absolute Retic Percent Retic Immature Retic Fraction Retic Hgb Equivalent Sodium Potassium Chloride Carbon Dioxide Anion Gap BUN Creatinine Estimated Creat Clear Estimated GFR Glucose Calcium TSH Free T4 Lab Acknowledgement Test Added
[2023-08-15 14:48] LABS: Folate, Serum 3.6 ng/mL (>=5.9)
[2023-08-15] MEDS: FUROSEMIDE 20 MG TABLET PO (15:15)
--- NOTE | 2023-08-15 19:06 | PC.NURSE ---
End of shift-- Pt alert and oriented today, but forgetful and resistant to cares. Pt impatient and yells out on occasion. VSS and pt is afebrile. SPO2 maintained >90% on RA. He c/o some pain in his leg today which resolved with Tylenol and has denied any other pain. Telemetry shows NSR. LS CTA. He denied nausea and ate 50% of 4 meal trays today. He was up to the chair and commode with EZ stand and/ or pivot transfer and tolerated it well despite initial refusals. Dressings to coccyx C/D/I. Groin area was cleaned and Nystatin applied this afternoon as patient refused this morning. Report to CORY [place].
[2023-08-15] MEDS: ATORVASTATIN CALCIUM 40 MG TABLET 80 MG PO (21:53)
[2023-08-15] MEDS: NYSTATIN POWDER 1 APPLIC TOPICAL (21:54)
[2023-08-16 02:33] VITALS: BP 124/81; PULSE 86; RESP 20; TEMP 36.3; O2SAT 94
--- NOTE | 2023-08-16 05:39 | PC.NURSE ---
Shift note: Pt has sleeping most of the shift. Woke up with confusion, delusion, and hallucination. He made several gestures of smoking from a cigarette in his right hand. At one time, he said he want to get up from sleeping on the grass. Pt oriented was oriented to his environment. Pelvic transfer with A2 to bedside commode at 2200. He denied pain and SOB. Dressing to the scalp changed at 2300. At 0550, pt started crying. When nurse approached him about the reason he said he want to go home. Bp and HR has been stabilized.
[2023-08-16 06:33] LABS: Hematocrit 26.6 % (37.0-53.0); Hemoglobin* 8.6 gm/dL (13.5-17.5); Mean Corpuscular HGB Conc 32 gm/dL (32-36); Mean Corpuscular Hemoglobin 33 pg (26-34); Mean Corpuscular Volume 102 fL (80-100); Platelet Count* 187 K/uL (140-440); Red Blood Count 2.61 m/uL (4.30-5.90); White Blood Count* 6.62 K/uL (4.50-11.00)
[2023-08-16 06:36] LABS: Slide Review Reflex No
[2023-08-16 06:47] LABS: Chloride* 115 mmol/L (96-114); Sodium* 140 mmol/L (135-149)
[2023-08-16 06:50] LABS: Anion Gap 4 mEq/L (7-15); Blood Urea Nitrogen* 31 mg/dL (7-30); Carbon Dioxide* 21 mmol/L (20-32); Creatinine* 1.3 mg/dL (0.5-1.5); Est. Creatinine Clearance* 48.91; Estimated Glomerular Filt Rate 55 ml/min
[2023-08-16 06:51] LABS: Calcium* 8.9 mg/dL (8.4-10.6); Glucose* 88 mg/dL (60-115)
--- NOTE | 2023-08-16 08:00 | CRLHL7_ITS ---
For Patients: As a result of the Century Cures Act, medical imaging exams and procedure reports are released immediately into your electronic medical record. You may view this report before your referring provider. If you have questions, please contact your health care provider. INDICATION: Bilateral adrenal masses discovered on recent prior CT of the lumbar spine dated 08/12/2023. COMPARISON: Lumbar spine CT 08/12/2023. TECHNIQUE: Adrenal mass protocol CT of the abdomen prior to and following administration 90 cc of Isovue 370 intravenous contrast. Please note that all CT scans at this facility use dose modulation, iterative reconstruction, and/or weight-based dosing when appropriate to reduce radiation dose to as low as reasonably achievable. FINDINGS: ABDOMEN Liver: Normal hepatic attenuation. No suspicious focal hepatic lesion. No intrahepatic biliary ductal dilatation. Gallbladder: Gallstone. Normal common duct caliber. No pericholecystic inflammatory changes. Pancreas: Normal pancreatic attenuation. No focal lesion. Normal duct caliber. No peripancreatic inflammatory changes. Spleen: Normal splenic attenuation. No suspicious focal lesion. Patent splenic artery and vein. Adrenal Glands: Right adrenal gland: 5.5 cm (axial series 5; image 98) mass with attenuation measurements as follows: 31 HU on the noncontrast series (2; 56), 53 HU on the portal venous phase series (5; 98), and 45 HU on the 15 minute delayed series (8; 98). Measurements correspond to an absolute washout of 36.4 percent and relative washout of 15.1 percent. These figures are inconsistent with an adrenal adenoma. Left adrenal gland: 11.8 cm (5; 130) left adrenal mass with attenuation measurements as follows: 34 HU on the noncontrast series (2; 88), 52 HU on the portal venous phase series (5; 130), and 49 HU on the 15 minute delayed scan (8; 130). Measurements correspond to an absolute washout of 16.7 percent and relative washout of 5.8 percent, again consistent with an adrenal adenoma. Kidneys: Multiple bilateral circumscribed homogeneous uncomplicated renal cortical cysts. No suspicious focal lesion. No obstructing nephrolith or dilatation of the intrarenal collecting systems. Patent renal arteries and veins. Gastrointestinal tract: Normal caliber, attenuation and wall thickness of the gastrointestinal tract. No inflammatory changes. Normal mesentery. Normal appendix. Vascular: 3.5 cm fusiform infrarenal abdominal aortic aneurysm with significant associated intraluminal mural thrombus. Inferior vena cava, portal and superior mesenteric veins are patent. Additional findings: Interaortocaval retroperitoneal and right common iliac adenopathy. SKELETON AND BODY WALL No acute or suspicious incidental findings. LOWER THORAX small bilateral symmetrical dependent low-density pleural effusions. Partially included lower thoracic wall, lungs, pleural spaces and mediastinum are otherwise without significant incidental findings. IMPRESSION: 1. 11.8 cm left adrenal and 5.5 cm right adrenal masses are inconsistent with benign adenomas. Neoplastic disease (metastatic disease, for example) is included in the differential for these lesions. Subspecialty referral is recommended to establish a histologic diagnosis to guide treatment. 2. Retroperitoneal and right common iliac chain lymphadenopathy, also consistent with nonspecific neoplastic disease. 3. 3.5 cm infrarenal abdominal aortic aneurysm. 4. Additional incidental findings described in the body of the report. Please note that all CT scans at this facility use dose modulation, iterative reconstruction, and/or weight-based dosing when appropriate to reduce radiation dose to as low as reasonably achievable. Dictated by Segundo Matute MD @ 08/16/2023 10:08:21 AM (Electronically Signed)
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
[2023-08-16] MEDS: lisinopriL 10 MG TABLET PO (09:56)
[2023-08-16] MEDS: HYDROCORTISONE 10 MG TABLET 30 MG PO (09:57)
[2023-08-16] MEDS: LIDOCAINE 5% PATCH 1 PATCH TRANSDERMA (09:57)
[2023-08-16] MEDS: GABAPENTIN 300 MG CAPSULE 600 MG PO ×3 (09:58→21:04)
[2023-08-16] MEDS: FLUDROCORTISONE ACETATE 0.1 MG TABLET PO (09:58)
[2023-08-16] MEDS: NYSTATIN POWDER 1 APPLIC TOPICAL ×2 (09:59→21:06)
[2023-08-16 10:39] VITALS: BP 140/85; PULSE 85; RESP 16; TEMP 36.1; O2SAT 92
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
--- NOTE | 2023-08-16 12:20 | W.ANESCHARGE ---
Anesthesia Charges Start Date/Time Anesthesia Start Date: 08/16/23 Anesthesia Start Time: 11:55 Stop Date/Time Anesthesia Stop Date: 08/16/23 Anesthesia Stop Time: 12:11 Summary Emergency: MDA Extremes of Age - Over 70 or under 1: MDA
--- NOTE | 2023-08-16 12:21 | P.ANES_ITS ---
Anesthesia Charges Start Date/Time Anesthesia Start Date: 08/16/23 Anesthesia Start Time: 11:55 Stop Date/Time Anesthesia Stop Date: 08/16/23 Anesthesia Stop Time: 12:11 Summary Emergency: TRANSMISSION SPECIALIST Extremes of Age - Over 70 or under 1: TRANSMISSION SPECIALIST
--- NOTE | 2023-08-16 12:21 | W.ANESCHARGE ---
Anesthesia Charges Start Date/Time Anesthesia Start Date: 08/16/23 Anesthesia Start Time: 11:55 Stop Date/Time Anesthesia Stop Date: 08/16/23 Anesthesia Stop Time: 12:11 Summary Emergency: VIDEO TAPE EDITOR Extremes of Age - Over 70 or under 1: VIDEO TAPE EDITOR
[2023-08-16 15:12] VITALS: BP 124/76; PULSE 111; RESP 20; O2SAT 90
[2023-08-16 15:15] VITALS: PULSE 113
--- NOTE | 2023-08-16 15:16 | PM.IMPN1 ---
Progress Note: A&P Assessment and plan (1) Acute adrenal crisis: Problem details: Clinically a presents with acute adrenal crisis with hypotension, hyperkalemia, altered mental status, low blood sugar, bilateral adrenal masses on CT. Taper and transition to oral steroids over the next few days. Will need outpatient endocrine evaluation. Pending CT imaging of adrenals Status: Acute (2) Metabolic encephalopathy: Problem details: Altered mental status on admission has much improved with treatment of adrenal crisis. Appears to have some cognitive impairment at baseline Status: Acute (3) GI bleed: Problem details: Uncertain history of outpatient bleeding. Hemoccult positive on admission but subsequently no evidence of ongoing bleeding. Received blood transfusion for severe anemia. Obtain EGD tomorrow. Hold apixaban until EGD. Status: Acute (4) Severe anemia: Problem details: Hemoglobin in the ED 7.5, on recheck on arrival to floor 4.7, however redrawn immediately and noted to be 7.0 Transfused 2 units PRBC Hemoglobin noted to trend up 8.1 - 9.4 -10.7 There was communication of a large bloody stool, however no documentation in the ED record, though FOBT +. Repeat FOBT on 08/12 is negative Holding aspirin. Discontinue ibuprofen - patient educated Status: Acute (5) Renal failure: Problem details: Likely due to combination of factors including hypotension, ibuprofen use, GI bleeding. Much improved. Creatinine at 5.4 on August 11/admission. Creatinine at 1.3 on August 15. Status: Acute (6) Acute hyperkalemia: Problem details: Potassium 6.2 in ED. Received Lokelma, IVF Potassium has trended down 6.0 - 4.1 over the past 3 days Likely due to adrenal insufficiency and renal insufficiency Status: Acute (7) Weakness: Problem details: Generalized, in setting of above. 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 Currently not able to transfer independently. May need shelter facility for rehab Status: Acute (8) Falls: Problem details: Unknown how frequent but 2 in the past week without acute trauma Status: Acute (9) Adrenal mass: Problem details: Incidental finding. CT shows Large bilateral adrenal masses, 11 cm on the left, 5 cm on the right. CT adrenal protocol is concerning for metastatic disease Status: Acute (10) Nocturnal hypoxia: Problem details: Suspect sleep apnea. Monitor for other causes including heart failure/pneumonia Status: Acute (11) Cognitive impairment: Problem details: On admission had metabolic encephalopathy. Unclear how much of his cognitive issues are due to that verses chronic progressive neuro degenerative disease and/or dementia. Byers 01/21 indicates dementia is likely. Status: Acute (12) Thrombocytopenia: Problem details: Platelets 82 on 08/12, previously 184, monitor Status: Acute (13) Chronic pain: Problem details: Shoulder, low back, left lower extremity phantom pain Recent falls/slipping from bed CT lumbar spine without acute findings Has been taking ibuprofen while on Coumadin - discontinued. Patient educated Lidocaine patch, continue gabapentin, Tylenol p.r.n. No complaints of pain in the last few days Status: Acute (14) Hypotension: Problem details: On admission had hypotension. Received fluid resuscitation, blood transfusion and then pressors. In addition to blood loss causing anemia and hypotension, it was felt he had adrenal insufficiency. With hydrocortisone his blood pressure normalized Status: Acute (15) PVD (peripheral vascular disease): Problem details: History of ischemic right lower extremity and AKA due to clot in a stent Status: Acute (16) Basal cell carcinoma (BCC): Problem details: Multiple basal cell carcinomas with remote and recent history of treatment. 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 Previously on warfarin but somewhat noncompliant now put on apixaban Status: Acute (19) Pulmonary embolism: Problem details: Lifelong anticoagulation, now on apixaban rather than warfarin due to poor compliance with monitoring. Status: Acute (20) Phantom limb pain: Status: Acute (21) Coronary atherosclerosis: Status: Acute (22) Chronic systolic CHF (congestive heart failure): Problem details: Resume furosemide and lisinopril 08/15/2023. Patient refusing furosemide. Monitor for fluid overload in setting of transfusions and IVF Echocardiogram shows normal LV size , ejection fraction of 55-60%, increased wall thickness, basal inferior wall motion, dilated aorta at 4.6 cm. Status: Acute (23) Non-healing right groin open wound: Problem details: Small and does not appear to have active infection Status: Acute (24) Long-term (current) use of anticoagulants, INR goal 2.0-3.0: Problem details: History of heterozygous factor 5 Leiden, DVTs, PE, AKA 2015 secondary to occluded stent. Warfarin reversed. Decision to moved to apixaban, renally dosed for DVT/VTE prophylaxis. Apixaban held pending upper endoscopy Status: Acute (25) HTN (hypertension): Problem details: Resume blood pressure medicines. Status: Acute (26) Hyperlipidemia: Problem details: Restart statin Status: Acute (27) CKD (chronic kidney disease) stage 3, GFR 30-59 ml/min: Problem details: With acute renal failure as noted above Baseline creatinine 1.3-1.6 Continue management as above Status: Acute (28) Discharge planning issues: Problem details: Wants to return to his apartment. Not yet independently transferring. Status: Acute Plan Continue in hospital for management of multiple above medical problems. Continue therapy to work on strengthening and transfers with possibly going home. Coordinate with secondary social studies teacher for possible shelter facility for rehab. Time Spent With Patient Total time spent: Total time spent today is 55 minutes, 15 minutes in discussing with patient and other providers plan of care and 30 minutes in discussing with designated healthcare power of health care attorneyAnalisa, current circumstances and treatment plan and disposition Subjective Date Seen: 08/16/23 Interval history: Admission HPI: Tl Lugo is a 83 year old male who was brought into the emergency room by EMS after he activated his life alert button. 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 Tl is a somewhat poor historian and is difficult to get a recent history. Apparently, over the last 4 days he has been having some increased weakness and actually states that he had a fall last week. He states he did hit his head but did not have a loss of consciousness. He did call on his [facility] button and the EMS apparently came and evaluated him. At that time he refused to come into the hospital. Over the last week he has been having some increasing weakness to the point that he is unable to do his ADLs and again pressed his [facility] button and was brought into the emergency room by EMS for evaluation. In the emergency room he was evaluated and laboratory investigation noted acute kidney injury with hyperkalemia as well as significant anemia. He also seem to have some confusion about recent events. With his multitude of medical problems including his hyperkalemia and acute kidney injury with noted volume depletion/dehydration, he is currently being admitted to the medical service for further evaluation and treatment. At the time I am seeing Tl, he does confirm the above history. He states he has not had any chest pain or shortness of breath. He has not had any abdominal pain. He states his stools are always dark and have not changed recently. He states that he went to see a cost controller last week and this is why he has the wounds on his scalp and right cheek. He does complain of some chronic back pain which is not worsened per his report. He states he normally gets around on a scooter and wheelchair, but recently due to his weakness he has not been able to transfer and has not been able to do his ADLs. He states he quit smoking last week after smoking at least 4 cigars/day and denies any alcohol usage. He otherwise denies any other acute complaints or problems at the time I am seeing him, but again, is a poor historian. At the time of admission he was hypotensive. He received IV fluid resuscitation, blood transfusion and norepinephrine for blood pressure support. Blood pressure initially improved. It was felt that he had adrenal insufficiency given his hypotension, altered mental status, hyperkalemia, bilateral adrenal masses. He was started on intravenous hydrocortisone D5 NS and had significant improvement in his mental status and blood pressure, renal function and electrolytes with these treatments. On admission he had a hemoglobin of 7.5. With fluids resuscitation this dropped to 4.7. He received blood transfusion and hemoglobin improved to around 9 in the last day. He has had no active bleeding. On admission he had an INR of 7.78. He received vitamin K and his INR dropped to 1.2 yesterday. Yesterday he was started on apixaban for VTE prophylaxis ongoing. Due to planned endoscopy his apixaban was held and he was given 1 dose of Lovenox 100 mg this morning. August 14: Patient reports feeling fine. Specifically denies pain, dyspnea, nausea. Reports he is eating well and bowels are working well. He reports that he is back to baseline with his functioning and strength and transfers. Therapy evaluation shows that he is requiring assist of 2 to transfer bed to chair. August 15: This morning patient reports feeling fine. He has no concerns. Specifically denies shortness of breath, chest pain, nausea, abdominal pain. CT scan of the abdomen to evaluate the adrenals is concerning for possible metastatic disease. He had upper endoscopy which showed mild gastritis and no active bleeding. This afternoon I went to speak with him about test results and he refused to talk to me. Would not tell me why. Patient also refusing his furosemide. Exam Narrative: Exam Narrative: He is alert and appears in no obvious distress. Respirations are clear to auscultation with a rare basilar crackle. No wheezing. Cardiovascular: S1, S2, regular rate and rhythm. Abdomen: Bowel sounds active. Abdomen is soft without tenderness or mass. Left lower extremity with trace edema and intact pulses. Const: Vital Signs, click to edit/add: Vital Signs - 24 hr 08/15/23 16:45 08/15/23 16:59 08/15/23 19:00 Temperature 97 F L Pulse Rate 100 Pulse Rate [Pulse Oximeter] 100 89 Respiratory Rate 20 20 Blood Pressure [Le ft Arm] 142/88 H Blood Pressure [Ri ght Arm] 132/84 Pulse Oximetry 96 96 Oxygen Delivery Me thod Room Air Room Air 08/15/23 23:00 08/15/23 23:00 08/15/23 23:00 Temperature 97.3 F L Pulse Rate Pulse Rate [Pulse Oximeter] 77 77 Respiratory Rate 20 20 20 Blood Pressure [Le ft Arm] Blood Pressure [Ri ght Arm] 127/82 Pulse Oximetry 95 95 Oxygen Delivery [facility] Room Air Room Air 08/15/23 23:00 08/16/23 02:33 08/16/23 10:39 Temperature 97.3 F L Pulse Rate 81 Pulse Rate [Pulse Oximeter] 86 Respiratory Rate 20 16 Blood Pressure [Le ft Arm] Blood Pressure [Ri ght Arm] 124/81 Pulse Oximetry 94 [facility] 08/16/23 10:39 08/16/23 15:12 08/16/23 15:12 Temperature 97.0 F L Pulse Rate Pulse Rate [Pulse Oximeter] 85 111 H Respiratory Rate 16 20 20 Blood Pressure [Le ft Arm] Blood Pressure [Ri ght Arm] 140/85 H 124/76 Pulse Oximetry 92 90 90 Oxygen Delivery Me thod Room Air Room Air Room Air Documenting provider has reviewed patient's vital signs: yes Labs Labs: Laboratory Results - last 24 hr 08/13/23 08/13/23 08/16/23 11:21 11:30 06:21 WBC 6.62 RBC 2.61 L Hgb 8.6 L Hct 26.6 L MCV 102 H MCH 33 MCHC 32 Plt Count 187 Sodium 140 Potassium 4.0 Chloride 115 H Carbon Dioxide 21 Anion Gap 4 L BUN 31 H Creatinine 1.3 Estimated Creat Clear 48.91 Estimated GFR 55 Glucose 88 Calcium 8.9 Cort[address] scan - abdomen: Radiologist's impression: INDICATION: Bilateral adrenal masses discovered on recent prior CT of the lumbar spine dated 08/12/2023. COMPARISON: Lumbar spine CT 08/12/2023. TECHNIQUE: Adrenal mass protocol CT of the abdomen prior to and following administration 90 cc of Isovue 370 intravenous contrast. Please note that all CT scans at this facility use dose modulation, iterative reconstruction, and/or weight-based dosing when appropriate to reduce radiation dose to as low as reasonably achievable. FINDINGS: ABDOMEN Liver: Normal hepatic attenuation. No suspicious focal hepatic lesion. No intrahepatic biliary ductal dilatation. Gallbladder: Gallstone. Normal common duct caliber. No pericholecystic inflammatory changes. Pancreas: Normal pancreatic attenuation. No focal lesion. Normal duct caliber. No peripancreatic inflammatory changes. Spleen: Normal splenic attenuation. No suspicious focal lesion. Patent splenic artery and vein. Adrenal Glands: Right adrenal gland: 5.5 cm (axial series 5; image 98) mass with attenuation measurements as follows: 31 HU on the noncontrast series (2; 56), 53 HU on the portal venous phase series (5; 98), and 45 HU on the 15 minute delayed series (8; 98). Measurements correspond to an absolute washout of 36.4 percent and relative washout of 15.1 percent. These figures are inconsistent with an adrenal adenoma. Left adrenal gland: 11.8 cm (5; 130) left adrenal mass with attenuation measurements as follows: 34 HU on the noncontrast series (2; 88), 52 HU on the portal venous phase series (5; 130), and 49 HU on the 15 minute delayed scan (8; 130). Measurements correspond to an absolute washout of 16.7 percent and relative washout of 5.8 percent, again consistent with an adrenal adenoma. Kidneys: Multiple bilateral circumscribed homogeneous uncomplicated renal cortical cysts. No suspicious focal lesion. No obstructing nephrolith or dilatation of the intrarenal collecting systems. Patent renal arteries and veins. Gastrointestinal tract: Normal caliber, attenuation and wall thickness of the gastrointestinal tract. No inflammatory changes. Normal mesentery. Normal appendix. Vascular: 3.5 cm fusiform infrarenal abdominal aortic aneurysm with significant associated intraluminal mural thrombus. Inferior vena cava, portal and superior mesenteric veins are patent. Additional findings: Interaortocaval retroperitoneal and right common iliac adenopathy. SKELETON AND BODY WALL No acute or suspicious incidental findings. LOWER THORAX small bilateral symmetrical dependent low-density pleural effusions. Partially included lower thoracic wall, lungs, pleural spaces and mediastinum are otherwise without significant incidental findings. IMPRESSION: 1. 11.8 cm left adrenal and 5.5 cm right adrenal masses are inconsistent with benign adenomas. Neoplastic disease (metastatic disease, for example) is included in the differential for these lesions. Subspecialty referral is recommended to establish a histologic diagnosis to guide treatment. 2. Retroperitoneal and right common iliac chain lymphadenopathy, also consistent with nonspecific neoplastic disease. 3. 3.5 cm infrarenal abdominal aortic aneurysm. 4. Additional incidental findings described in the body of the report.
[2023-08-16 19:00] VITALS: BP 118/70; PULSE 94; RESP 20; TEMP 36.9; O2SAT 92
--- NOTE | 2023-08-16 19:15 | PC.NURSE ---
End of shift [id number] - Pt alert, oriented to self, disoriented to time, place, and situation at start of shift. Orientation improved throughout shift, however RN noted pt to make statements that indicate disorientation such as stating that a man was going to [employer] to buy him jeans and 2 plaid shirts and someone who worked at the hospital was eating his meals and he was being charged for 2 meals. Pt was also noted to report auditory hallucinations asking the RN if they could hear a car running and can you hear the man coming up in the elevator from downstairs?. Pt difficult to reorient to situation, RN noted his mood to be variable. Pt agreeable at times and resistive to care at other times. Up to chair with 2 person assist and stand pivot with OT. Continent of bladder, tolerating RA and regular diet/fluids. Pt appears to be resting comfortably in bed at end of shift.
[2023-08-16] MEDS: ATORVASTATIN CALCIUM 40 MG TABLET 80 MG PO (21:05)
[2023-08-16] MEDS: APIXABAN 5 MG TABLET PO (21:05)
[2023-08-16] MEDS: SODIUM CHLORIDE 0.9 % (FLUSH) 10 ML SYRINGE 5 ML IVF (21:06)
[2023-08-16 23:00] VITALS: BP 117/69; PULSE 89; PULSE 92; PULSE 93; RESP 20; TEMP 36.9; O2SAT 93
[2023-08-17] VITALS (8 sets, daily range): BP systolic 118–133; BP diastolic 67–79; PULSE 92–124; RESP 16–24; TEMP 36.6–36.7; O2SAT 90–92
--- NOTE | 2023-08-17 05:04 | PC.NURSE ---
Shift note: Pt has been pleasant and cooperated with treatment and care. Occasional confusion but easily redirectable. 2 person assist with EZ stand to bedside commode. Groin area clean and Nystatin powder applied. 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 Pt had adequate sleep, no awkward behaviors this shift. Vitally stable. Pt has Mepilex to coccyx.
[2023-08-17 06:35] LABS: Hematocrit 27.5 % (37.0-53.0); Hemoglobin* 8.9 gm/dL (13.5-17.5); Mean Corpuscular HGB Conc 32 gm/dL (32-36); Mean Corpuscular Hemoglobin 33 pg (26-34); Mean Corpuscular Volume 102 fL (80-100); Platelet Count* 172 K/uL (140-440); White Blood Count* 5.05 K/uL (4.50-11.00)
[2023-08-17 06:51] LABS: Chloride* 115 mmol/L (96-114); Potassium* 3.6 mmol/L (3.6-5.1); Sodium* 139 mmol/L (135-149)
[2023-08-17 06:54] LABS: Anion Gap 0 mEq/L (7-15); Blood Urea Nitrogen* 26 mg/dL (7-30); Carbon Dioxide* 24 mmol/L (20-32); Creatinine* 1.2 mg/dL (0.5-1.5); Est. Creatinine Clearance* 52.99; Estimated Glomerular Filt Rate 61 ml/min; Glucose* 77 mg/dL (60-115)
[2023-08-17 06:55] LABS: Calcium* 8.9 mg/dL (8.4-10.6)
[2023-08-17 06:57] LABS: Slide Review Reflex No
[2023-08-17] MEDS: LIDOCAINE 5% PATCH 1 PATCH TRANSDERMA ×2 (08:58→21:30)
[2023-08-17] MEDS: APIXABAN 5 MG TABLET PO ×2 (09:02→21:29)
[2023-08-17] MEDS: lisinopriL 10 MG TABLET PO (09:02)
[2023-08-17] MEDS: GABAPENTIN 300 MG CAPSULE 600 MG PO ×2 (09:02→21:29)
[2023-08-17] MEDS: FLUDROCORTISONE ACETATE 0.1 MG TABLET PO (09:16)
[2023-08-17] MEDS: HYDROCORTISONE 10 MG TABLET 30 MG PO (09:16)
[2023-08-17] MEDS: FUROSEMIDE 20 MG TABLET PO (09:18)
[2023-08-17] MEDS: SODIUM CHLORIDE 0.9 % (FLUSH) 10 ML SYRINGE 5 ML IVF ×2 (09:55→21:32)
[2023-08-17] MEDS: NYSTATIN POWDER 1 APPLIC TOPICAL ×2 (09:55→21:32)
--- NOTE | 2023-08-17 10:29 | CRLHL7_ITS ---
For Patients: As a result of the Century Cures Act, medical imaging exams and procedure reports are released immediately into your electronic medical record. You may view this report before your referring provider. If you have questions, please contact your health care provider. INDICATIONS: New adrenal cancer diagnosis. Follow up for evaluation for metastatic disease. TECHNIQUE: CT chest, abdomen and pelvis acquired with 99 cc of Isovue 370 IV contrast. COMPARISON: CT abdomen without and with contrast 08/16/2023. FINDINGS: Chest: Small bilateral pleural effusions are similar. No pericardial effusion. No pathologic mediastinal or hilar lymphadenopathy. Aortic atherosclerosis. Thoracic aorta and main pulmonary arteries are normal in caliber. Coronary artery calcifications. Heart size is within normal limits. Soft tissues of the thoracic wall are unremarkable. No pneumothorax. Central airways are patent. Mild emphysema. Bilateral lower lobe atelectasis, unchanged. Lungs are otherwise clear. No suspicious nodule or acute airspace disease. Abdomen: Bilateral adrenal masses measuring up to 11.8 cm on the left and 6.1 cm on the right are unchanged. No focal liver lesion. Cholelithiasis. No biliary ductal dilatation. Spleen and pancreas are unremarkable. Bilateral renal cysts are unchanged. No hydronephrosis. No obstruction or acute inflammatory change involving the GI tract. Normal appendix. Aortocaval and right iliac chain lymphadenopathy is unchanged. No abdominal free fluid. Atherosclerotic disease with 3.5 cm infrarenal abdominal aortic aneurysm, as before. There is occlusion of the right external iliac artery with reconstitution of flow in the proximal superficial femoral artery. Pelvis: Prostate and bladder as imaged are unremarkable. Pelvic portions of the GI tract are unremarkable. Pathologic right external iliac node on image 222 of series 2 measures 2.1 cm. Trace pelvic free fluid. Mild body wall edema. Bone windows: Demineralization and degenerative changes. No acute or suspicious osseous abnormality. IMPRESSION: 1. No evidence of metastatic disease in the chest. Small bilateral pleural effusions and lower lobe atelectasis are unchanged. 2. Bilateral adrenal masses, left greater than right consistent with known malignancy are unchanged. 3. 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 4. Trace pelvic free fluid. 5. Infrarenal abdominal aortic aneurysm measuring 3.5 cm, unchanged. Occlusion of the right external iliac artery with reconstitution of flow in the proximal superficial femoral artery. Dictated by Srinivasan Sheehan MD @ 08/17/2023 12:42:50 PM Please note that all CT scans at this facility use dose modulation, iterative reconstruction, and/or weight-based dosing when appropriate to reduce radiation dose to as low as reasonably achievable. Dictated by: Srinivasan Sheehan MD @ 08/17/2023 12:43:12 (Electronically Signed)
--- NOTE | 2023-08-17 11:08 | P.IMPN_ITS ---
Progress Note: A&P Assessment and plan (1) Acute adrenal crisis: Problem details: Admitted with presumed acute adrenal crisis with hypotension, hyperkalemia, altered mental status, low blood sugar, bilateral adrenal masses on CT. Responded well to IV and now oral hydrocortisone. Status: Acute (2) Metabolic encephalopathy: Problem details: Altered mental status on admission has much improved with treatment of adrenal crisis. Appears to have some cognitive impairment at baseline. [place] 01/21 Status: Acute (3) GI bleed: Problem details: Uncertain history of outpatient bleeding. Hemoccult positive on admission but subsequently no evidence of ongoing bleeding. Received blood transfusion for se gunner anemia. EGD showed no active bleeding and no source of high risk bleeding. Mild gastritis. No evidence of ongoing bleeding. Hemoglobin stable. Restart apixaban Status: Acute (4) Severe anemia: Problem details: Hemoglobin in the ED 7.5, on recheck on arrival to floor 4.7, however redrawn immediately and noted to be 7.0 Transfused 2 units PRBC Hemoglobin noted to trend up 8.1 - 9.4 -10.7 There was communication of a large bloody stool, however no documentation in the ED record, though FOBT +. Repeat FOBT on 08/12 is negative Continue apixaban. Stop warfarin, aspirin, ibuprofen Status: Acute (5) Renal failure: Problem details: Likely due to combination of factors including hypotension, ibuprofen use, GI bleeding. Much improved. Creatinine at 5.4 on August 11/admission. Creatinine at 1.2 on August 16. Status: Acute (6) Acute hyperkalemia: Problem details: Potassium 6.2 in ED. Potassium has trended down 6.0 - 3.6 over the past several days Likely due to adrenal insufficiency and renal insufficiency Status: Acute (7) Weakness: Problem details: Generalized, in setting of above. Prior to admission was apparently living independently but unclear how well he was doing with mobility career services director - patient lives independently in his own apartment. Currently not able to transfer independently. May need shelter facility for rehab Status: Acute (8) Falls: Problem details: Unknown how frequent but 2 in the week prior to admission without serious traumatic injury. Status: Acute (9) Adrenal mass: Problem details: Incidental finding. CT shows Large bilateral adrenal masses, 11 cm on the left, 5 cm on the right. CT adrenal protocol is concerning for metastatic disease. CT chest abdomen and pelvis to evaluate for source of metastatic disease. Status: Acute (10) Nocturnal hypoxia: Problem details: Suspect sleep apnea. Monitor for other causes including heart failure/pneumonia Status: Acute (11) Cognitive impairment: Problem details: On admission had metabolic encephalopathy. Unclear how much of his cognitive issues are due to that verses chronic progressive neuro degenerative disease and/or dementia. [place] 01/21 indicates dementia is likely. Status: Acute (12) Thrombocytopenia: Problem details: Platelets 82 on 08/12, previously 184, monitor Status: Acute (13) Chronic pain: Problem details: History of chronic pain including shoulders, back, phantom limb pain. No significant complaints about pain in the last few days. On acetaminophen, lidocaine patch, gabapentin. Stop ibuprofen Status: Acute (14) Hypotension: Problem details: On admission had hypotension. Received fluid resuscitation, blood transfusion and then pressors. In addition to blood loss causing anemia and hypotension, it was felt he had adrenal insufficiency. With hydrocortisone his blood pressure normalized Status: Acute (15) PVD (peripheral vascular disease): Problem details: History of ischemic right lower extremity and AKA due to clot in a stent Status: Acute (16) Basal cell carcinoma (BCC): Problem details: Multiple basal cell carcinomas with remote and recent history of treatment. Scalp cancers treated a week prior to admission. Healing without complications. 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 Previously on warfarin but somewhat noncompliant now put on apixaban Status: Acute (19) Pulmonary embolism: Problem details: Lifelong anticoagulation, now on apixaban rather than warfarin due to poor compliance with monitoring. Status: Acute (20) Phantom limb pain: Status: Acute (21) Coronary atherosclerosis: Problem details: Currently asymptomatic Status: Acute (22) Chronic systolic CHF (congestive heart failure): Problem details: Resume furosemide and lisinopril 08/15/2023. Patient refusing furosemide. Monitor for fluid overload in setting of transfusions and IVF Echocardiogram shows normal LV size , ejection fraction of 55-60%, increased wall thickness, basal inferior wall motion, dilated aorta at 4.6 cm. At risk for heart failure due to medication noncompliance. Status: Acute (23) Non-healing right groin open wound: Problem details: Small and does not appear to have active infection Status: Acute (24) Long-term (current) use of anticoagulants, INR goal 2.0-3.0: Problem details: History of heterozygous factor 5 Leiden, DVTs, PE, AKA 2015 secondary to occluded stent. Warfarin reversed. Decision to moved to apixaban, renally dosed for DVT/VTE prophylaxis. Apixaban held pending upper endoscopy Status: Acute (25) HTN (hypertension): Problem details: Resume blood pressure medicines. Status: Acute (26) Hyperlipidemia: Problem details: Restart statin Status: Acute (27) CKD (chronic kidney disease) stage 3, GFR 30-59 ml/min: Problem details: With acute renal failure as noted above Baseline creatinine 1.3-1.6 Continue management as above Status: Acute (28) Discharge planning issues: Problem details: Wants to return to his apartment. Not yet independently transferring. Discussed with friend, Analisa, who he is indicated as primary contact. Mortgage Processing Manager working on alternative arrangements Status: Acute Plan Continue in hospital for evaluation of suspected metastatic cancer, ongoing therapy, ongoing management of medications for above medical problems and disposition planning. Time Spent With Patient Total time spent: Total time spent today is 50 minutes, 40 minutes in coordination of care and discussing with patient and other providers ongoing evaluation management of adrenal tumors and disposition Subjective Date Seen: 08/17/23 Interval history: Admission HPI: Tl Lugo is a 83 year old male who was brought into the emergency room by EMS after he activated his life alert button. 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 Tl is a somewhat poor historian and is difficult to get a recent history. Apparently, over the last 4 days he has been having some increased weakness and actually states that he had a fall last week. He states he did hit his head but did not have a loss of consciousness. He did call on his [facility] button and the EMS apparently came and evaluated him. At that time he refused to come into the hospital. Over the last week he has been having some increasing weakness to the point that he is unable to do his ADLs and again pressed his [facility] button and was brought into the emergency room by EMS for evaluation. In the emergency room he was evaluated and laboratory investigation noted acute kidney injury with hyperkalemia as well as significant anemia. He also seem to have some confusion about recent events. With his multitude of medical problems including his hyperkalemia and acute kidney injury with noted volume depletion/dehydration, he is currently being admitted to the medical service for further evaluation and treatment. At the time I am seeing Tl, he does confirm the above history. He states he has not had any chest pain or shortness of breath. He has not had any abdominal pain. He states his stools are always dark and have not changed recently. He states that he went to see a lymphedema therapist last week and this is why he has the wounds on his scalp and right cheek. He does complain of some chronic back pain which is not worsened per his report. He states he normally gets around on a scooter and wheelchair, but recently due to his weakness he has not been able to transfer and has not been able to do his ADLs. He states he quit smoking last week after smoking at least 4 cigars/day and denies any alcohol usage. He otherwise denies any other acute complaints or problems at the time I am seeing him, but again, is a poor his eric. At the time of admission he was hypotensive. He received IV fluid resuscitation, blood transfusion and norepinephrine for blood pressure support. Blood pressure initially improved. It was felt that he had adrenal insufficiency given his hypotension, altered mental status, hyperkalemia, bilateral adrenal masses. He was started on intravenous hydrocortisone D5 NS and had significant improvement in his mental status and blood pressure, renal function and electrolytes with these treatments. On admission he had a hemoglobin of 7.5. With fluids resuscitation this dropped to 4.7. He received blood transfusion and hemoglobin improved to around 9 in the last day. He has had no active bleeding. On admission he had an INR of 7.78. He received vitamin K and his INR dropped to 1.2 yesterday. Yesterday he was started on apixaban for VTE prophylaxis ongoing. Due to planned endoscopy his apixaban was held and he was given 1 dose of Lovenox 100 mg this morning. August 14: Patient reports feeling fine. Specifically denies pain, dyspnea, nausea. Reports he is eating well and bowels are working well. He reports that he is back to baseline with his functioning and strength and transfers. Therapy evaluation shows that he is requiring assist of 2 to transfer bed to chair. August 15: This morning patient reports feeling fine. He has no concerns. Specifically denies shortness of breath, chest pain, nausea, abdominal pain. CT scan of the abdomen to evaluate the adrenals is concerning for possible metastatic disease. He had upper endoscopy which showed mild gastritis and no active bleeding. This afternoon I went to speak with him about test results and he refused to talk to me. Would not tell me why. Patient also refusing his furosemide. August 16: Patient reports feeling fine. He is not willing to talk to me but does agree to receive information about the evaluation so far. Discussed results from his adrenal CT scan. I spoke to Interventional Radiology at [facility]. This does not appear to be an adrenal adenoma but more likely metastatic disease. They recommended chest abdomen pelvis CT to evaluate for metastatic disease. If necessary they could do a biopsy of the adrenal gland if no other source of malignancy could be identified. This could be done as an outpatient. He would need to be off anticoagulation for that biopsy. Patient is interested in pursuing this plan so far. Exam Narrative: Exam Narrative: He is alert and appears in no distress. Will speak with me minimally. He is oriented to being in the hospital. He answers questions appropriately when I discuss whether to pursue a cancer diagnosis he agrees to this. Const: Vital Signs, click to edit/add: Vital Signs - 24 hr 08/16/23 15:12 08/16/23 15:12 08/16/23 15:15 Temperature Pulse Rate 113 H Pulse Rate [Pulse Oximeter] 111 H Respiratory Rate 20 20 Blood Pressure [Ri ght Arm] 124/76 Pulse Oximetry 90 90 Oxygen Delivery Me thod Room Air Room Air 08/16/23 19:00 08/16/23 23:00 08/16/23 23:00 Temperature 98.4 F Pulse Rate Pulse Rate [Pulse Oximeter] 94 93 Respiratory Rate 20 20 20 Blood Pressure [Ri ght Arm] 118/70 Pulse Oximetry 92 93 Oxygen Delivery Me thod Room Air Room Air 08/16/23 23:00 08/16/23 23:00 08/17/23 02:38 Temperature 98.4 F 97.9 F Pulse Rate 89 Pulse Rate [Pulse Oximeter] 92 92 Respiratory Rate 20 20 Blood Pressure [Ri t Arm] 117/69 118/67 Pulse Oximetry 93 90 Oxygen Delivery Me thod Room Air Room Air 08/17/23 10:26 Temperature Pulse Rate 124 H Pulse Rate [Pulse Oximeter] Respiratory Rate Blood Pressure [[facility] Arm] Pulse Oximetry Oxygen Delivery Me thod Documenting provider has reviewed patient's vital signs: yes Labs Labs: Laboratory Results - last 24 hr 08/17/23 06:01 WBC 5.05 RBC 2.70 L Hgb 8.9 L Hct 27.5 L MCV 102 H MCH 33 MCHC 32 Plt Count 172 Sodium 139 Potassium 3.6 Chloride 115 H Carbon Dioxide 24 Anion Gap 0 L BUN 26 Creatinine 1.2 Estimated Creat Clear 52.99 Estimated GFR 61 Glucose 77 Calcium 8.9
--- NOTE | 2023-08-17 11:54 | PC.NURSE ---
We where moving patient over to go down for his CT scan and Eloisa was asking him to watch his arm so she could put up the rail up and patient told her to shut up.
--- NOTE | 2023-08-17 15:20 | PC.SOCIAL ---
Discharge planning- Met with patient and discussed discharge plans. Patient informs he does not want to go to SNF. Discussed more detail with patient and he agrees to try SNF. Patient does not have any recollection of social work discussion on discharge plans from yesterday. Met with patient's friend, Analisa and her Frank, and discussed getting a health care directive in place for patient. Answered questions regarding health care directive. Patient was getting CT scan when patient's friend was at the hospital. Provided form to Analisa and Frank, they will discuss with patient when he is back from the CT scan. Informed Analisa and Frank that [facility] have notaries on staff that can assist with completing the form. Discussed POA for financial decision making with Analisa and Analisa refused to take the form. Analisa informs that she does not want to be a financial decision maker for patient. Analisa states that she was at patient's home this AM and seen some of the bills at patient's home and does not want to be involved in the financial piece of patient's life. Analisa informs that it is likely that patient will want Analisa's son as the primary health care agent and she would be the secondary health care agent, she will discuss with patient. Analisa informs that when looking for SNF, patient would like to be as close to [place] as possible. Analisa states that she does not want patient to go to [facility] due to state ratings. Contacted the following SNF's for possible placement. 1. [facility]- Faxed referral to [phone]. 2. [facility] Faxed referral to [phone]. 3. [facility]- Faxed referral to [phone]. 4. [facility]- Faxed referral to [phone]. 5. [facility]- Secure e-mailed referral to Nannette Pisano in admissions. Nannette reviewed and declined patient for admission. 6. [facility]- Phone call to Fatoumata in admissions. Fatoumata informs that they are not accepting any admissions this week due to a large Covid outbreak. 7. [facility] Phone call to Sharri in admissions. There are no open beds this week. Social work will continue to follow up as needed in locating a safe discharge plan.
[2023-08-17] MEDS: HYDROCORTISONE 10 MG TABLET 20 MG PO (18:56)
--- NOTE | 2023-08-17 19:32 | PC.NURSE ---
End of shift [id number] - Pt alert, oriented to self, place, and intermittently oriented to situation. Pt mood noted to be pleasant until pt was scheduled for CT scan and existing IV catheter in his arm was acknowledged. Pt became guarded, defensive, and told RN to ?stop and shut up? when giving pt instruction. Pt mood appeared to improve with rest and visitors, though pt was observed to become briefly disoriented upon waking, stating he ?needed to do his laundry, (he) just needed to know where to go?. Pt agreeable at times and resistive to care at other times throughout shift. Up to chair and commode with EZ stand assist and observed to stand pivot with PT. Continent of bladder, tolerating RA and regular diet/fluids. Pt appears to be resting comfortably in bed at end of shift.?
[2023-08-17] MEDS: ATORVASTATIN CALCIUM 40 MG TABLET 80 MG PO (21:29)
[2023-08-18] VITALS (9 sets, daily range): BP systolic 122–143; BP diastolic 35–85; PULSE 83–105; RESP 16–20; TEMP 36.6–37.1; O2SAT 89–93
--- NOTE | 2023-08-18 05:40 | PC.NURSE ---
Pt was pleasa t and cooperative this shift. INc x1 and used urinal x1. His vitals were WNL Right side of groin and an area on stump red cleaned and nystatin powder applied.
[2023-08-18 06:48] LABS: Hematocrit 27.5 % (37.0-53.0); Hemoglobin* 8.9 gm/dL (13.5-17.5); Mean Corpuscular HGB Conc 32 gm/dL (32-36); Mean Corpuscular Hemoglobin 33 pg (26-34); Mean Corpuscular Volume 100 fL (80-100); Platelet Count* 169 K/uL (140-440); Red Blood Count 2.74 m/uL (4.30-5.90); White Blood Count* 6.04 K/uL (4.50-11.00)
[2023-08-18 06:54] LABS: Slide Review Reflex No
[2023-08-18 07:02] LABS: Chloride* 111 mmol/L (96-114); Potassium* 3.5 mmol/L (3.6-5.1); Sodium* 138 mmol/L (135-149)
[2023-08-18 07:05] LABS: Anion Gap 2 mEq/L (7-15); Carbon Dioxide* 25 mmol/L (20-32); Creatinine* 1.2 mg/dL (0.5-1.5); Est. Creatinine Clearance* 52.99; Estimated Glomerular Filt Rate 61 ml/min
[2023-08-18 07:06] LABS: Blood Urea Nitrogen* 23 mg/dL (7-30); Calcium* 8.5 mg/dL (8.4-10.6); Glucose* 86 mg/dL (60-115)
[2023-08-18] MEDS: lisinopriL 10 MG TABLET PO (08:15)
[2023-08-18] MEDS: TORSEMIDE 20 MG TABLET PO (08:15)
[2023-08-18] MEDS: GABAPENTIN 300 MG CAPSULE 600 MG PO ×2 (08:15→21:00)
[2023-08-18] MEDS: POTASSIUM CHLORIDE 10 MEQ CAPSULE ER PO (08:15)
[2023-08-18] MEDS: APIXABAN 5 MG TABLET PO ×2 (08:15→21:01)
[2023-08-18] MEDS: SODIUM CHLORIDE 0.9 % (FLUSH) 10 ML SYRINGE 5 ML IVF ×2 (08:16→21:01)
[2023-08-18] MEDS: HYDROCORTISONE 10 MG TABLET 20 MG PO ×2 (08:16→18:22)
[2023-08-18] MEDS: NYSTATIN POWDER 1 APPLIC TOPICAL ×2 (08:16→21:01)
--- NOTE | 2023-08-18 11:37 | PM.IMPN1 ---
Progress Note: A&P Assessment and plan (1) Acute adrenal crisis: Problem details: Admitted with presumed acute adrenal crisis with hypotension, hyperkalemia, altered mental status, low blood sugar, bilateral adrenal masses on CT. Responded well to IV and now oral hydrocortisone. Notably random cortisol level was relatively normal at 8 prior to hydrocortisone Status: Acute (2) Metabolic encephalopathy: Problem details: Altered mental status on admission has much improved with treatment of adrenal crisis. Appears to have some cognitive impairment at baseline. [place] 01/21 Status: Acute (3) GI bleed: Problem details: Uncertain history of outpatient bleeding. Hemoccult positive on admission but subsequently no evidence of ongoing bleeding. Received blood transfusion for severe anemia. EGD showed no active bleeding and no source of high risk bleeding. Mild gastritis. No evidence of ongoing bleeding. Hemoglobin stable. Restart apixaban for history of DVT and PE Status: Acute (4) Severe anemia: Problem details: Hemoglobin in the ED 7.5, on recheck on arrival to floor 4.7, however redrawn immediately and noted to be 7.0 Transfused 2 units PRBC Hemoglobin is stable Continue apixaban. Stop warfarin, aspirin, ibuprofen Status: Acute (5) Renal failure: Problem details: Likely due to combination of factors including hypotension, ibuprofen use, GI bleeding. Much improved. Creatinine at 5.4 on August 11/admission. Creatinine at 1.2 on August 16. Status: Acute (6) Acute hyperkalemia: Problem details: Potassium 6.2 in ED. Potassium has trended down 6.0 - 3.6 over the past several days Likely due to adrenal insufficiency and renal insufficiency Status: Acute (7) Weakness: Problem details: Generalized, in setting of above. Prior to admission was apparently living independently but unclear how well he was doing with mobility business services assistant - patient lives independently in his own apartment. Currently not able to transfer independently. May need long term facility for rehab Status: Acute (8) Falls: Problem details: Unknown how frequent but 2 in the week prior to admission without serious traumatic injury. Status: Acute (9) Adrenal mass: Problem details: Incidental finding. CT shows Large bilateral adrenal masses, 11 cm on the left, 5 cm on the right. CT adrenal protocol is concerning for metastatic disease in the area of the adrenal glands and with lymphadenopathy. CT chest abdomen and pelvis to evaluate for source of metastatic disease showed no obvious other focus of malignancy Status: Acute (10) Nocturnal hypoxia: Problem details: Suspect sleep apnea. Monitor for other causes including heart failure/pneumonia Status: Acute (11) Cognitive impairment: Problem details: On admission had metabolic encephalopathy. Unclear how much of his cognitive issues are due to that verses chronic progressive neuro degenerative disease and/or dementia. [place] 01/21 indicates dementia is likely. Status: Acute (12) Thrombocytopenia: Problem details: Platelets 82 on 08/12, previously 184, monitor Status: Acute (13) Chronic pain: Problem details: History of chronic pain including shoulders, back, phantom limb pain. No significant complaints about pain in the last few days. On acetaminophen, lidocaine patch, gabapentin. Stop ibuprofen Status: Acute (14) Hypotension: Problem details: On admission had hypotension. Received fluid resuscitation, blood transfusion and then pressors. In addition to blood loss causing anemia and hypotension, it was felt he had adrenal insufficiency. With hydrocortisone his blood pressure normalized Status: Acute (15) PVD (peripheral vascular disease): Problem details: History of ischemic right lower extremity and AKA due to clot in a stent Status: Acute (16) Basal cell carcinoma (BCC): Problem details: Multiple basal cell carcinomas with remote and recent history of treatment. Scalp cancers treated a week prior to admission. Healing without complications. 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 Previously on warfarin but somewhat noncompliant now put on apixaban Status: Acute (19) Pulmonary embolism: Problem details: Lifelong anticoagulation, now on apixaban rather than warfarin due to poor compliance with monitoring. Status: Acute (20) Phantom limb pain: Status: Acute (21) Coronary atherosclerosis: Problem details: Currently asymptomatic Status: Acute (22) Chronic systolic CHF (congestive heart failure): Problem details: Resume furosemide and lisinopril 08/15/2023. Patient refusing furosemide. Monitor for fluid overload in setting of transfusions and IVF Echocardiogram shows normal LV size , ejection fraction of 55-60%, increased wall thickness, basal inferior wall motion, dilated aorta at 4.6 cm. At risk for heart failure due to medication noncompliance. Status: Acute (23) Non-healing right groin open wound: Problem details: Small and does not appear to have active infection Status: Acute (24) Long-term (current) use of anticoagulants, INR goal 2.0-3.0: Problem details: History of heterozygous factor 5 Leiden, DVTs, PE, AKA 2015 secondary to occluded stent. Warfarin reversed. Decision to moved to apixaban, renally dosed for DVT/VTE prophylaxis. Apixaban held pending upper endoscopy Status: Acute (25) HTN (hypertension): Problem details: Resume blood pressure medicines. Status: Acute (26) Hyperlipidemia: Problem details: Restart statin Status: Acute (27) CKD (chronic kidney disease) stage 3, GFR 30-59 ml/min: Problem details: With acute renal failure as noted above Baseline creatinine 1.3-1.6 Continue management as above Status: Acute (28) Discharge planning issues: Problem details: Wants to return to his apartment. Not yet independently transferring. Discussed with friend, Analisa, who he is indicated as primary contact. Assistant Strength Coach working on alternative arrangements Status: Acute (29) Tachycardia: Problem details: Tachycardia on admission thought related to hypotension. Now still having some sinus tachycardia with normal blood pressures. Continue to monitor for medical illness to cause tachycardia. Trial metoprolol. Status: Acute Plan Continue in-hospital to manage above medical problems and pending safe discharge plan. Time Spent With Patient Total time spent: Total time spent today is 40 minutes, 30 minutes in coordination of care and discussing with other providers and patient ongoing plan of care Subjective Date Seen: 08/18/23 Interval history: Admission HPI: Tl Lugo is a 83 year old male who was brought into the emergency room by EMS after he activated his life alert button. 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 Tl is a somewhat poor historian and is difficult to get a recent history. Apparently, over the last 4 days he has been having some increased weakness and actually states that he had a fall last week. He states he did hit his head but did not have a loss of consciousness. He did call on his [facility] button and the EMS apparently came and evaluated him. At that time he refused to come into the hospital. Over the last week he has been having some increasing weakness to the point that he is unable to do his ADLs and again pressed his Lif[facility] button and was brought into the emergency room by EMS for evaluation. In the emergency room he was evaluated and laboratory investigation noted acute kidney injury with hyperkalemia as well as significant anemia. He also seem to have some confusion about recent events. With his multitude of medical problems including his hyperkalemia and acute kidney injury with noted volume depletion/dehydration, he is currently being admitted to the medical service for further evaluation and treatment. At the time I am seeing Tl, he does confirm the above history. He states he has not had any chest pain or shortness of breath. He has not had any abdominal pain. He states his stools are always dark and have not changed recently. He states that he went to see a senior unix administrator last week and this is why he has the wounds on his scalp and right cheek. He does complain of some chronic back pain which is not worsened per his report. He states he normally gets around on a scooter and wheelchair, but recently due to his weakness he has not been able to transfer and has not been able to do his ADLs. He states he quit smoking last week after smoking at least 4 cigars/day and denies any alcohol usage. He otherwise denies any other acute complaints or problems at the time I am seeing him, but again, is a poor historian. At the time of admission he was hypotensive. He received IV fluid resuscitation, blood transfusion and norepinephrine for blood pressure support. Blood pressure initially improved. It was felt that he had adrenal insufficiency given his hypotension, altered mental status, hyperkalemia, bilateral adrenal masses. He was started on intravenous hydrocortisone D5 NS and had significant improvement in his mental status and blood pressure, renal function and electrolytes with these treatments. On admission he had a hemoglobin of 7.5. With fluids resuscitation this dropped to 4.7. He received blood transfusion and hemoglobin improved to around 9 in the last day. He has had no active bleeding. On admission he had an INR of 7.78. He received vitamin K and his INR dropped to 1.2 yesterday. Yesterday he was started on apixaban for VTE prophylaxis ongoing. Due to planned endoscopy his apixaban was held and he was given 1 dose of Lovenox 100 mg this morning. August 14: Patient reports feeling fine. Specifically denies pain, dyspnea, nausea. Reports he is eating well and bowels are working well. He reports that he is back to baseline with his functioning and strength and transfers. Therapy evaluation shows that he is requiring assist of 2 to transfer bed to chair. August 15: This morning patient reports feeling fine. He has no concerns. Specifically denies shortness of breath, chest pain, nausea, abdominal pain. CT scan of the abdomen to evaluate the adrenals is concerning for possible metastatic disease. He had upper endoscopy which showed mild gastritis and no active bleeding. This afternoon I went to speak with him about test results and he refused to talk to me. Would not tell me why. Patient also refusing his furosemide. August 16: Patient reports feeling fine. He is not willing to talk to me but does agree to receive information about the evaluation so far. Discussed results from his adrenal CT scan. I spoke to Interventional Radiology at [facility]. This does not appear to be an adrenal adenoma but more likely metastatic disease. They recommended chest abdomen pelvis CT to evaluate for metastatic disease. If necessary they could do a biopsy of the adrenal gland if no other source of malignancy could be identified. This could be done as an outpatient. He would need to be off anticoagulation for that biopsy. Patient is interested in pursuing this plan so far. August 17: Patient reports no concerns. Specifically denies shortness of breath, chest pain, fever, abdominal pain. Reports he has been eating okay and bowels are working okay. Exam Narrative: Exam Narrative: He is alert and appears in no distress. Speech is normal. Responds minimally to my questions. Minimal spontaneous speech with me. Breathing is unlabored. Const: Vital Signs, click to edit/add: Vital Signs - 24 hr 08/17/23 12:22 08/17/23 12:23 08/17/23 15:13 Temperature Pulse Rate 114 H Pulse Rate [Pulse Oximeter] 113 H Respiratory Rate 24 24 Blood Pressure [Le ft Arm] Blood Pressure [Ri ght Arm] 133/79 Pulse Oximetry 90 90 Oxygen Delivery Me thod Room Air Room Air 08/17/23 19:56 08/17/23 23:30 08/17/23 23:52 Temperature 98.1 F 98 F Pulse Rate 99 Pulse Rate [Pulse Oximeter] 100 99 Respiratory Rate 16 16 Blood Pressure [Le ft Arm] 118/69 126/72 Blood Pressure [Ri ght Arm] Pulse Oximetry 92 90 Oxygen Delivery Me thod Room Air Room Air 08/18/23 00:28 08/18/23 03:37 08/18/23 07:06 Temperature 98 F Pulse Rate 89 Pulse Rate [Pulse Oximeter] 91 Respiratory Rate 16 Blood Pressure [Le ft Arm] 134/77 Blood Pressure [Ri ght Arm] Pulse Oximetry 90 92 Oxygen Delivery Me thod Room Air Room Air 08/18/23 08:09 08/18/23 08:09 Temperature 98.4 F Pulse Rate Pulse Rate [Pulse Oximeter] 97 Respiratory Rate 18 18 Blood Pressure [Le ft Arm] 130/77 Blood Pressure [Ri ght Arm] Pulse Oximetry 93 93 Oxygen Delivery Me thod Room Air Room Air Documenting provider has reviewed patient's vital signs: yes Labs Labs: Laboratory Results - last 24 hr 08/18/23 08/18/23 04:00 06:55 WBC 6.04 RBC 2.74 L Hgb 8.9 L Hct 27.5 L MCV 100 MCH 33 MCHC 32 Plt Count 169 Sodium 138 Potassium 3.5 L Chloride 111 Carbon Dioxide 25 Anion Gap 2 L BUN 23 Creatinine 1.2 Estimated Creat Clear 52.99 Estimated GFR 61 Glucose [address] Chest/Ab/Pelvis: Radiologist's impression: INDICATIONS: New adrenal cancer diagnosis. Follow up for evaluation for metastatic disease. TECHNIQUE: CT chest, abdomen and pelvis acquired with 99 cc of Isovue 370 IV contrast. COMPARISON: CT abdomen without and with contrast 08/16/2023. FINDINGS: Chest: Small bilateral pleural effusions are similar. No pericardial effusion. No pathologic mediastinal or hilar lymphadenopathy. Aortic atherosclerosis. Thoracic aorta and main pulmonary arteries are normal in caliber. Coronary artery calcifications. Heart size is within normal limits. Soft tissues of the thoracic wall are unremarkable. No pneumothorax. Central airways are patent. Mild emphysema. Bilateral lower lobe atelectasis, unchanged. Lungs are otherwise clear. No suspicious nodule or acute airspace disease. Abdomen: Bilateral adrenal masses measuring up to 11.8 cm on the left and 6.1 cm on the right are unchanged. No focal liver lesion. Cholelithiasis. No biliary ductal dilatation. Spleen and pancreas are unremarkable. Bilateral renal cysts are unchanged. No hydronephrosis. No obstruction or acute inflammatory change involving the GI tract. Normal appendix. Aortocaval and right iliac chain lymphadenopathy is unchanged. No abdominal free fluid. Atherosclerotic disease with 3.5 cm infrarenal abdominal aortic aneurysm, as before. There is occlusion of the right external iliac artery with reconstitution of flow in the proximal superficial femoral artery. Pelvis: Prostate and bladder as imaged are unremarkable. Pelvic portions of the GI tract are unremarkable. Pathologic right external iliac node on image 222 of series 2 measures 2.1 cm. Trace pelvic free fluid. Mild body wall edema. Bone windows: Demineralization and degenerative changes. No acute or suspicious osseous abnormality. IMPRESSION: 1. No evidence of metastatic disease in the chest. Small bilateral pleural effusions and lower lobe atelectasis are unchanged. 2. Bilateral adrenal masses, left greater than right consistent with known malignancy are unchanged. 3. 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 4. Trace pelvic free fluid. 5. Infrarenal abdominal aortic aneurysm measuring 3.5 cm, unchanged. Occlusion of the right external iliac artery with reconstitution of flow in the proximal superficial femoral artery.
[2023-08-18] MEDS: METOPROLOL TARTRATE 25 MG TABLET PO (11:54)
--- NOTE | 2023-08-18 15:02 | PC.SOCIAL ---
Addendum entered by DAPHNE Hdz 08/18/23 16:14: Discharge planning: asbestos hazard abatement worker confirmed that the pt completed the short-form of the [place] [facility]CD yesterday with his friends Analisa and Silvano. The original HCD is in his chart. Social work to follow-up as needed. Original Note: Discharge planning: asbestos hazard abatement worker heard back from [facility] in [place] and they are declining the pt because he smokes and they are smoke free facility/campus. [facility] and [facility] are still reviewing. [facility] is behind in reviewing referrals due to having [facility] at their facility this week. Social work to follow-up as needed.
[2023-08-18] MEDS: METOPROLOL TARTRATE 25 MG TABLET 12.5 MG PO (21:00)
[2023-08-18] MEDS: ATORVASTATIN CALCIUM 40 MG TABLET 80 MG PO (21:00)
--- NOTE | 2023-08-18 22:47 | PC.NURSE ---
Patient alert and oriented to self and place. Tolerated a regular diet. Used urinal in bed independently.
[2023-08-19] VITALS (7 sets, daily range): BP systolic 104–137; BP diastolic 69–79; PULSE 83–103; RESP 16–20; TEMP 36.7–37.2; O2SAT 90–95
--- NOTE | 2023-08-19 06:42 | PC.NURSE ---
Pt alert and oriented to self and place only. Afebrile. Pt denies pain. Tele NSR. Pt uses urinal to void. Pt spilt water by accident overnight, changed gown and brief pt able to roll independently from side to side to help with brief change. Bladder scan for 481, pt voided 200 out. ?
[2023-08-19 07:04] LABS: Hematocrit 29.6 % (37.0-53.0); Hemoglobin* 9.5 gm/dL (13.5-17.5); Mean Corpuscular HGB Conc 32 gm/dL (32-36); Mean Corpuscular Hemoglobin 33 pg (26-34); Mean Corpuscular Volume 102 fL (80-100); Platelet Count* 211 K/uL (140-440); Red Blood Count 2.91 m/uL (4.30-5.90); White Blood Count* 6.44 K/uL (4.50-11.00)
[2023-08-19 07:10] LABS: Slide Review Reflex No
[2023-08-19 07:15] LABS: Chloride* 107 mmol/L (96-114); Potassium* 3.4 mmol/L (3.6-5.1); Sodium* 136 mmol/L (135-149)
[2023-08-19 07:18] LABS: Anion Gap 2 mEq/L (7-15); Carbon Dioxide* 27 mmol/L (20-32); Creatinine* 1.2 mg/dL (0.5-1.5); Est. Creatinine Clearance* 52.99; Estimated Glomerular Filt Rate 61 ml/min
[2023-08-19 07:19] LABS: Blood Urea Nitrogen* 24 mg/dL (7-30); Calcium* 8.7 mg/dL (8.4-10.6); Glucose* 81 mg/dL (60-115)
[2023-08-19] MEDS: METOPROLOL TARTRATE 25 MG TABLET 12.5 MG PO (08:54)
[2023-08-19] MEDS: NYSTATIN POWDER 1 APPLIC TOPICAL ×2 (08:54→20:44)
[2023-08-19] MEDS: lisinopriL 10 MG TABLET PO (08:54)
[2023-08-19] MEDS: SODIUM CHLORIDE 0.9 % (FLUSH) 10 ML SYRINGE 5 ML IVF ×2 (08:54→20:43)
[2023-08-19] MEDS: TORSEMIDE 20 MG TABLET PO (08:55)
[2023-08-19] MEDS: HYDROCORTISONE 10 MG TABLET 20 MG PO (08:55)
[2023-08-19] MEDS: POTASSIUM CHLORIDE 10 MEQ CAPSULE ER PO (08:55)
[2023-08-19] MEDS: APIXABAN 5 MG TABLET PO ×2 (08:55→20:43)
[2023-08-19] MEDS: GABAPENTIN 300 MG CAPSULE 600 MG PO ×3 (08:56→20:43)
--- NOTE | 2023-08-19 11:52 | PC.SOCIAL ---
Addendum entered by DAPHNE Hdz 08/19/23 15:18: Discharge planning: cargo station worker updated pt's designated health care agent [place] morning that [facility] in [place] was reviewing his referral for TCU placement. Social work to follow-up as needed. Original Note: Discharge planning: cargo station worker heard back from Ann-Marie at [facility] this morning via email. Ann-Marie is reviewing the pt's insurance and will get back to this worker today. Ann-Marie did complete a nurse to nurse call this morning with the pt's nurse today. Social work to follow-up as needed.
[2023-08-19] MEDS: POTASSIUM BICARB 25 MEQ EFFERVESCENT TAB PO (13:50)
[2023-08-19] MEDS: ACETAMINOPHEN 325 MG TABLET 650 MG PO (13:50)
--- NOTE | 2023-08-19 14:30 | PM.IMPN1 ---
Progress Note: A&P Assessment and plan (1) Acute adrenal crisis: Problem details: Admitted with presumed acute adrenal crisis with hypotension, hyperkalemia, altered mental status, low blood sugar, bilateral adrenal masses on CT. Responded well to IV and now oral hydrocortisone taper. Notably random cortisol level was relatively normal at 8 prior to hydrocortisone. Status: Acute (2) Metabolic encephalopathy: Problem details: Altered mental status on admission has much improved with treatment of adrenal crisis. Pickett 01/21 Status: Acute (3) GI bleed: Problem details: Uncertain history of outpatient bleeding. Hemoccult positive on admission but subsequently no evidence of ongoing bleeding. Received blood transfusion for severe anemia. EGD showed no active bleeding and no source of high risk bleeding. Mild gastritis. No evidence of ongoing bleeding. Hemoglobin stable. Restart apixaban for history of DVT and PE Status: Acute (4) Severe anemia: Problem details: Hemoglobin in the ED 7.5, on recheck on arrival to floor 4.7, however redrawn immediately and noted to be 7.0 Transfused 2 units PRBC Hemoglobin is stable Continue apixaban. Stop warfarin, aspirin, ibuprofen Status: Acute (5) Renal failure: Problem details: Likely due to combination of factors including hypotension, ibuprofen use, GI bleeding. Much improved. Creatinine at 5.4 on August 11/admission. Creatinine stable at 1.2. Status: Acute (6) Acute hyperkalemia: Problem details: Potassium 6.2 in ED. Potassium has trended down 6.0 - 3.6 over the past several days. Now requiring potassium supplementation Likely due to adrenal insufficiency and renal insufficiency Status: Acute (7) Weakness: Problem details: Generalized, in setting of above. Prior to admission was apparently living independently but unclear how well he was doing with mobility banking services advisor - patient lives independently in his own apartment. Currently not able to transfer independently. May need long term facility for rehab Status: Acute (8) Falls: Problem details: Has had falls for the 2 weeks prior to admission without apparent serious traumatic injury Status: Acute (9) Adrenal mass: Problem details: Incidental finding. CT shows Large bilateral adrenal masses, 11 cm on the left, 5 cm on the right. CT adrenal protocol is concerning for metastatic disease in the area of the adrenal glands and with lymphadenopathy. CT chest abdomen and pelvis to evaluate for source of metastatic disease showed no obvious other focus of malignancy. Initially patient wanted biopsy for diagnostic purposes. He is now deciding against pursuing cancer diagnosis or treatment. Continuing to review options with the patient. Status: Acute (10) Nocturnal hypoxia: Problem details: Suspect sleep apnea. Monitor for other causes including heart failure/pneumonia Status: Acute (11) Cognitive impairment: Problem details: On admission had metabolic encephalopathy. Unclear how much of his cognitive issues are due to that verses chronic progressive neuro degenerative disease and/or dementia. Pickett 01/21 indicates dementia is likely. Status: Acute (12) Thrombocytopenia: Problem details: Platelets 82 on 08/12, now normalized and stable Status: Acute (13) Chronic pain: Problem details: History of chronic pain including shoulders, back, phantom limb pain. No significant complaints about pain in the last several days. On acetaminophen, lidocaine patch, gabapentin. Stop ibuprofen. Status: Acute (14) Hypotension: Problem details: On admission had hypotension. Received fluid resuscitation, blood transfusion and then pressors. In addition to blood loss causing anemia and hypotension, it was felt he had adrenal insufficiency. With hydrocortisone his blood pressure normalized. Status: Acute (15) PVD (peripheral vascular disease): Problem details: History of ischemic right lower extremity and AKA due to clot in a stent Status: Acute (16) Basal cell carcinoma (BCC): Problem details: Multiple basal cell carcinomas with remote and recent history of treatment. Scalp cancers treated a week prior to admission. Healing without complications. 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 Previously on warfarin but somewhat noncompliant. Now treated with apixaban. Status: Acute (19) Pulmonary embolism: Problem details: Lifelong anticoagulation, now on apixaban rather than warfarin due to poor compliance with monitoring. Status: Acute (20) Phantom limb pain: Problem details: Not an active problem on this admission Status: Acute (21) Coronary atherosclerosis: Problem details: Currently asymptomatic Status: Acute (22) Chronic systolic CHF (congestive heart failure): Problem details: Resume lisinopril 08/15/2023. Patient occasionally refusing diuretic. Switch from furosemide b.i.d. to torsemide daily to improve compliance Echocardiogram shows normal LV size , ejection fraction of 55-60%, increased wall thickness, basal inferior wall motion, dilated aorta at 4.6 cm. At risk for heart failure due to medication noncompliance. Status: Acute (23) Non-healing right groin open wound: Problem details: Small and does not appear to have active infection Status: Acute (24) Long-term (current) use of anticoagulants, INR goal 2.0-3.0: Problem details: History of heterozygous factor 5 Leiden, DVTs, PE, AKA 2015 secondary to occluded stent. Warfarin reversed. Decision to moved to apixaban, renally dosed for DVT/VTE prophylaxis. Apixaban held pending upper endoscopy Status: Acute (25) HTN (hypertension): Problem details: Resume blood pressure medicines. Status: Acute (26) Hyperlipidemia: Problem details: Restart statin Status: Acute (27) Discharge planning issues: Problem details: Wants to return to his apartment. Not yet independently transferring. Discussed with friend, Analisa, who he is indicated as primary contact. Customer Supply Coordinator working on alternative arrangements Status: Acute (28) Tachycardia: Problem details: Tachycardia on admission thought related to hypotension. Now still having some sinus tachycardia with normal blood pressures. Continue to monitor for medical illness to cause tachycardia. Trial metoprolol. Status: Acute Plan Continue in hospital pending safe discharge plan. Continue to monitor and manage multiple chronic medical problems as above Time Spent With Patient Total time spent: Total time today is 30 minutes, to 25 minutes in coordination of care discussing with patient other providers management of above problems and disposition Subjective Date Seen: 08/19/23 Interval history: Admission HPI: Tl Lugo is a 83 year old male who was brought into the emergency room by EMS after he activated his life alert button. 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 Tl is a somewhat poor historian and is difficult to get a recent history. Apparently, over the last 4 days he has been having some increased weakness and actually states that he had a fall last week. He states he did hit his head but did not have a loss of consciousness. He did call on his [facility] button and the EMS apparently came and evaluated him. At that time he refused to come into the hospital. Over the last week he has been having some increasing weakness to the point that he is unable to do his ADLs and again pressed his Lif[facility] button and was brought into the emergency room by EMS for evaluation. In the emergency room he was evaluated and laboratory investigation noted acute kidney injury with hyperkalemia as well as significant anemia. He also seem to have some confusion about recent events. With his multitude of medical problems including his hyperkalemia and acute kidney injury with noted volume depletion/dehydration, he is currently being admitted to the medical service for further evaluation and treatment. At the time I am seeing Tl, he does confirm the above history. He states he has not had any chest pain or shortness of breath. He has not had any abdominal pain. He states his stools are always dark and have not changed recently. He states that he went to see a battery assembler dry cell last week and this is why he has the wounds on his scalp and right cheek. He does complain of some chronic back pain which is not worsened per his report. He states he normally gets around on a scooter and wheelchair, but recently due to his weakness he has not been able to transfer and has not been able to do his ADLs. He states he quit smoking last week after smoking at least 4 cigars/day and denies any alcohol usage. He otherwise denies any other acute complaints or problems at the time I am seeing him, but again, is a poor historian. At the time of admission he was hypotensive. He received IV fluid resuscitation, blood transfusion and norepinephrine for blood pressure support. Blood pressure initially improved. It was felt that he had adrenal insufficiency given his hypotension, altered mental status, hyperkalemia, bilateral adrenal masses. He was started on intravenous hydrocortisone D5 NS and had significant improvement in his mental status and blood pressure, renal function and electrolytes with these treatments. On admission he had a hemoglobin of 7.5. With fluids resuscitation this dropped to 4.7. He received blood transfusion and hemoglobin improved to around 9 in the last day. He has had no active bleeding. On admission he had an INR of 7.78. He received vitamin K and his INR dropped to 1.2 yesterday. Yesterday he was started on apixaban for VTE prophylaxis ongoing. Due to planned endoscopy his apixaban was held and he was given 1 dose of Lovenox 100 mg this morning. August 14: Patient reports feeling fine. Specifically denies pain, dyspnea, nausea. Reports he is eating well and bowels are working well. He reports that he is back to baseline with his functioning and strength and transfers. Therapy evaluation shows that he is requiring assist of 2 to transfer bed to chair. August 15: This morning patient reports feeling fine. He has no concerns. Specifically denies shortness of breath, chest pain, nausea, abdominal pain. CT scan of the abdomen to evaluate the adrenals is concerning for possible metastatic disease. He had upper endoscopy which showed mild gastritis and no active bleeding. This afternoon I went to speak with him about test results and he refused to talk to me. Would not tell me why. Patient also refusing his furosemide. August 16: Patient reports feeling fine. He is not willing to talk to me but does agree to receive information about the evaluation so far. Discussed results from his adrenal CT scan. I spoke to Interventional Radiology at [facility]. This does not appear to be an adrenal adenoma but more likely metastatic disease. They recommended chest abdomen pelvis CT to evaluate for metastatic disease. If necessary they could do a biopsy of the adrenal gland if no other source of malignancy could be identified. This could be done as an outpatient. He would need to be off anticoagulation for that biopsy. Patient is interested in pursuing this plan so far. August 17: Patient reports no concerns. Specifically denies shortness of breath, chest pain, fever, abdominal pain. Reports he has been eating okay and bowels are working okay. August 18: Patient indicates today that he is unhappy about bruising on his arm from phlebotomy. He refused phlebotomy today because they were unable to draw his blood on the 1st try. I told the patient that if he pursues a cancer diagnosis and treatment he will have a lot more need for phlebotomy and IV access and tests. He tells me he does not want to pursue cancer diagnosis or treatment today. He reports otherwise feeling well and has no other concerns Exam Narrative: Exam Narrative: He is alert appears in no distress. Respirations with a few basilar crackles. Otherwise clear to auscultation. Cardiovascular: S1, S2, regular rate and rhythm. No murmur gallop or rub. Abdomen: Bowel sounds active. Abdomen is soft without tenderness or mass. Left lower extremity without significant edema. Const: Vital Signs, click to edit/add: Vital Signs - 24 hr 08/18/23 15:00 08/18/23 15:00 08/18/23 15:00 Temperature 98.2 F Pulse Rate Pulse Rate [Pulse Oximeter] 90 90 Respiratory Rate 20 20 20 Blood Pressure [Le ft Arm] 122/73 Pulse Oximetry 92 92 Oxygen Delivery Me thod Room Air Room Air 08/18/23 15:28 08/18/23 19:00 08/18/23 23:14 Temperature 97.9 F Pulse Rate 87 Pulse Rate [Pulse Oximeter] 95 Respiratory Rate 20 20 Blood Pressure [Le ft Arm] 143/76 H Pulse Oximetry 91 89 Oxygen Delivery Me thod Room Air Room Air 08/18/23 23:14 08/19/23 02:35 08/19/23 04:05 Temperature 97.8 F 98.1 F Pulse Rate 87 Pulse Rate [Pulse Oximeter] 83 83 Respiratory Rate 20 20 Blood Pressure [Le ft Arm] 143/85 H 137/79 Pulse Oximetry 89 90 Oxygen Delivery Me thod Room Air Room Air 08/19/23 07:31 08/19/23 08:06 08/19/23 08:06 Temperature 98.9 F Pulse Rate 84 Pulse Rate [Pulse Oximeter] 86 Respiratory Rate 18 18 Blood Pressure [Le ft Arm] 132/77 Pulse Oximetry 95 95 Oxygen Delivery Me thod Room Air Room Air Documenting provider has reviewed patient's vital signs: yes Labs Labs: Laboratory Results - last 24 hr 08/19/23 05:59 WBC 6.44 RBC 2.91 L Hgb 9.5 L Hct 29.6 L MCV 102 H MCH 33 MCHC 32 Plt Count 211 Sodium 136 Potassium 3.4 L Chloride 107 Carbon Dioxide 27 Anion Gap 2 L BUN 24 Creatinine 1.2 Estimated Creat Clear 52.99 Estimated GFR 61 Glucose 81 Calcium 8.7
--- NOTE | 2023-08-19 16:14 | PC.SOCIAL ---
Addendum entered by DAPHNE Hdz 08/19/23 16:54: Discharge planning: Pre-admission screening was completed and sent to [facility]. #[id number]. Social work to follow-up as needed. Original Note: Discharge planning: Pt was accepted to [facility] in [place] for a private room with a shared bathroom. [facility] can accept the pt tomorrow 08/19(Wednesday) by 2pm. composite worker notified the pt and his HCD agent Analisa Whitaker. They are both in agreement with accepting this room. Pt will need to take non-emergent EMS. composite worker did discuss with Analisa that pt's insurance should cover the transportation cost, but if they do not, the cost would be around $215.00($85 to pick-up the pt and $5 per mile/[place] is [place] [address] from [place] hospital/85+26x5= 215). Analisa was in agreement with this and consented to the non-emergent EMS transportation form via phone with verbal consent. Social work to follow-up as needed.
[2023-08-19] MEDS: HYDROCORTISONE 10 MG TABLET PO (17:22)
[2023-08-19] MEDS: ATORVASTATIN CALCIUM 40 MG TABLET 80 MG PO (20:43)
[2023-08-20 00:04] VITALS: BP 108/73; PULSE 93; RESP 18; TEMP 36.6; O2SAT 90
[2023-08-20 00:44] VITALS: RESP 18; O2SAT 90
[2023-08-20 00:57] VITALS: PULSE 91
[2023-08-20 03:06] VITALS: BP 123/70; PULSE 89; RESP 16; TEMP 36.6; O2SAT 90
--- NOTE | 2023-08-20 06:41 | PC.NURSE ---
End of shift [id number]: Alert, orientated and cooperative overnight. VSS. Denies pain. Turn and repo while in bed. Using call light appropriately.
[2023-08-20 07:00] VITALS: BP 121/70; PULSE 94; PULSE 96; RESP 18; TEMP 36.9; O2SAT 90
[2023-08-20] MEDS: TORSEMIDE 20 MG TABLET PO (08:09)
[2023-08-20] MEDS: POTASSIUM CHLORIDE 10 MEQ CAPSULE ER 20 MEQ PO (08:10)
[2023-08-20] MEDS: LIDOCAINE 5% PATCH 1 PATCH TRANSDERMA (08:16)
--- NOTE | 2023-08-20 08:52 | P.DS_ITS ---
DS: Providers Provider Date Seen: 08/20/23 Date of admission: 08/12/23 03:10 Primary care physician: Alfredo Starr MD Admitting Clinician: Vicky Abbasi MD Attending Physician on discharge: Bruno Harvey MD Date of Discharge: 08/20/23 DS: Diagnosis Discharge Diagnosis (1) Acute adrenal crisis: Status: Acute Problem details: Admitted with presumed acute adrenal crisis with hypotension, hyperkalemia, altered mental status, low blood sugar, bilateral adrenal masses on CT. Responded well to IV and now oral hydrocortisone. Random cortisol level was relatively normal at 8 prior to hydrocortisone. 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 Currently patient is not seeking further evaluation and treatment. If he were to reconsider and have more evaluation and treatment he should have interventional radiology biopsy his adrenal mass as well as Endocrine follow-up. (3) Adrenal mass: Status: Acute Problem details: Incidental finding. CT shows Large bilateral adrenal masses, 11 cm on the left, 5 cm on the right. CT adrenal protocol is concerning for metastatic disease in the area of the adrenal glands with lymphadenopathy. CT chest abdomen and p last to evaluate for source of metastatic disease showed no obvious other focus of malignancy. Initially patient wanted biopsy for diagnostic purposes. He is now deciding against pursuing cancer diagnosis or treatment. Continuing to review options with the patient. (4) Metabolic encephalopathy: Status: Acute Problem details: Altered mental status on admission has much improved with treatment of adrenal crisis. Angelina 01/21 (5) GI bleed: Status: Acute Problem details: Uncertain history of outpatient bleeding. Hemoccult positive on admission but subsequently no evidence of ongoing bleeding. Received blood transfusion for severe anemia. EGD showed no active bleeding and no source of high risk bleeding. Mild gastritis. No evidence of ongoing bleeding. Hemoglobin stable. Restart apixaban for history of DVT and PE (6) Severe anemia: Status: Acute Problem details: Hemoglobin in the ED 7.5, on recheck on arrival to floor 4.7, however redrawn immediately and noted to be 7.0 Transfused 2 units PRBC Hemoglobin is stable Continue apixaban. Stop warfarin, aspirin, ibuprofen (7) Renal failure: Status: Acute Problem details: Likely due to combination of factors including hypotension, ibuprofen use, GI bleeding. Much improved. Creatinine at 5.4 on August 11/admission. Creatinine stable at 1.2. (8) Acute hyperkalemia: Status: Acute Problem details: Potassium 6.2 in ED. Potassium has trended down 6.0 - 3.6 over the past several days. Now requiring potassium supplementation Likely due to adrenal insufficiency and renal insufficiency (9) Weakness: Status: Acute Problem details: Generalized, in setting of above. Prior to admission was apparently living independently but unclear how well he was doing with mobility business services officer - patient lives independently in his own apartment. Currently not able to transfer independently. May need [facility] facility for rehab (10) Falls: Status: Acute Problem details: Has had falls for the 2 weeks prior to admission without apparent serious traumatic injury (11) Nocturnal hypoxia: Status: Acute Problem details: Suspect sleep apnea. Monitor for other causes including heart failure/pneumonia (12) Cognitive impairment: Status: Acute Problem details: On admission had metabolic encephalopathy. Unclear how much of his cognitive issues are due to that verses chronic progressive neuro degenerative disease and/or dementia. Angelina 01/21 indicates dementia is likely. (13) Thrombocytopenia: Status: Acute Problem details: Platelets 82 on 08/12, now normalized and stable (14) Chronic pain: Status: Acute Problem details: History of chronic pain including shoulders, back, phantom limb pain. No significant complaints about pain in the last several days. On acetaminophen, lidocaine patch, gabapentin. Stop ibuprofen. (15) Hypotension: Status: Acute Problem details: On admission had hypotension. Received fluid resuscitation, blood transfusion and then pressors. In addition to blood loss causing anemia and hypotension, it was felt he had adrenal insufficiency. With hydrocortisone his blood pressure normalized. (16) PVD (peripheral vascular disease): Status: Acute Problem details: History of ischemic right lower extremity and AKA due to clot in a stent (17) Basal cell carcinoma (BCC): Status: Acute Problem details: Multiple basal cell carcinomas with remote and recent history of treatment. Scalp cancers treated a week prior to admission. Healing without complications. 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 Previously on warfarin but somewhat noncompliant. Now treated with apixaban. (20) Pulmonary embolism: Status: Acute Problem details: Lifelong anticoagulation, now on apixaban rather than warfarin due to poor compliance with monitoring. (21) Phantom limb pain: Status: Acute Problem details: Not an active problem on this admission (22) Coronary atherosclerosis: Status: Acute Problem details: Currently asymptomatic (23) Chronic systolic CHF (congestive heart failure): Status: Acute Problem details: Resume lisinopril 08/15/2023. Patient occasionally refusing diuretic. Switch from furosemide b.i.d. to torsemide daily to improve compliance Echocardiogram shows normal LV size , ejection fraction of 55-60%, increased wall thickness, basal inferior wall motion, dilated aorta at 4.6 cm. At risk for heart failure due to medication noncompliance. (24) Non-healing right groin open wound: Status: Acute Problem details: Small and does not appear to have active infection (25) Long-term (current) use of anticoagulants, INR goal 2.0-3.0: Status: Acute Problem details: History of heterozygous factor 5 Leiden, DVTs, PE, AKA 2014 secondary to occluded stent. Warfarin reversed. Decision to moved to apixaban, renally dosed for DVT/VTE prophylaxis. Apixaban held pending upper endoscopy (26) HTN (hypertension): Status: Acute Problem details: Resume blood pressure medicines. (27) Hyperlipidemia: Status: Acute Problem details: Restart statin (28) Discharge planning issues: Status: Acute Problem details: Wants to return to his apartment. Not yet independently transferring. Discussed with friend, Analisa, who he has indicated as primary contact. Needs SNF. (29) Tachycardia: Status: Acute Problem details: Tachycardia on admission thought related to hypotension. Now still having some sinus tachycardia with normal blood pressures. Continue to monitor for medical illness to cause tachycardia. Low-dose metoprolol. Continue to monitor. (30) Palliative care encounter: Status: Acute Problem details: Discussed with patient current concerns that he has metastatic cancer involving his adrenal glands. He initially had some interest in further diagnostic testing and considering treatment. He has now decided that he is not going to pursue that. I am concerned he will have continued decline in his health and progression of disability whether he pursues aggressive cancer diagnosis and treatment or chooses palliative care only. Consider consultation with hospice if goals of care are comfort focus and not seeking cancer diagnosis and treatment. If he chooses cancer diagnosis and treatment in his future he would need a biopsy with Interventional Radiology of his adrenal mass. He should also get endocrine follow-up of his adrenal insufficiency. DS: Summary Hospital Course Hospital Course: 83-year-old male admitted to the hospital with profound weakness and recurrent falls at home. At time of admission he was found to have hypotension, altered mental status, acute on chronic anemia, acute on chronic kidney disease, hypoglycemia and hyperkalemia. He was given fluid resuscitation. Did not respond adequately to that so was started on norepinephrine. With further assessment it was felt likely that he was having an adrenal crisis. He was started on intravenous hydrocortisone and responded well to that. He was transitioned over to oral hydrocortisone with the tapering of his dose over the subsequent several days. His hemoglobin on admission was 7.5 and after fluid resuscitation and dropped to 4.7. He was transfused 2 units of blood and underwent EGD showing only mild gastritis and no active bleeding. His renal function and his hyperkalemia responded well to treatment with hydrocortisone and fluid resuscitation and have normalized back to his baseline. On admission his INR was 7.8. INR was were reversed with vitamin K. He is felt to be high risk for recurrent PE and DVT and so was then started on apixaban after his EGD. No ongoing evidence of bleeding. Aspirin and ibuprofen were discontinued. Heart failure medicines have been adjusted. With fluid resuscitation there was some concern of mild heart failure exacerbation. Was switch from furosemide to torsemide and other medications were adjusted to optimize cardiovascular management. CT of the abdomen showed bilateral adrenal masses. These are felt to be metastatic disease rather than adrenal adenomas. With had ongoing discussion about whether to refer for Interventional Radiology doing a biopsy or moving more towards comfort care/palliative care without further intervention. Patient is a poor candidate for surgery or chemotherapy. Currently indicating that he is not interested in pursuing cancer diagnosis or treatment. Status at Discharge Functional status at discharge: bed bound Time Spent with Patient Time attestation: Total time spent providing and/or coordinating discharge services: 50 minutes Time spent: Greater than 30 minutes Exam Narrative: Exam Narrative: He is alert and appears in no distress. Breathing is unlabored. Mental status is at baseline. Const: Vital Signs, click to edit/add: Vital Signs - 24 hr 08/19/23 15:00 08/19/23 15:00 08/19/23 15:00 Temperature Pulse Rate 94 Pulse Rate [Pulse Oximeter] 94 Respiratory Rate 18 18 Blood Pressure [Le ft Arm] Pulse Oximetry 90 Oxygen Delivery Me thod Room Air 08/19/23 15:00 08/19/23 19:20 08/19/23 20:16 Temperature 98.5 F 98.3 F Pulse Rate 97 Pulse Rate [Pulse Oximeter] 89 103 H Respiratory Rate 18 16 Blood Pressure [Le ft Arm] 107/69 104/78 Pulse Oximetry 95 91 Oxygen Delivery Me thod Room Air Room Air 08/20/23 00:04 08/20/23 00:44 08/20/23 00:57 Temperature 97.8 F Pulse Rate 91 Pulse Rate [Pulse Oximeter] 93 Respiratory Rate 18 18 Blood Pressure [Le ft Arm] 108/73 Pulse Oximetry 90 90 Oxygen Delivery Me thod Room Air Room Air 08/20/23 03:06 08/20/23 07:00 08/20/23 07:00 Temperature 97.9 F 98.5 F Pulse Rate 94 Pulse Rate [Pulse Oximeter] 89 96 Respiratory Rate 16 18 Blood Pressure [Le ft Arm] 123/70 121/70 Pulse Oximetry 90 90 Oxygen Delivery Me thod Room Air Room Air Documenting provider has reviewed patient's vital signs: yes DS: Data Data Completed and Pending Labs on day of discharge: Labs from last 24 hours 08/13/23 20:18 Renin Baseline Cancelled Imaging CT Chest/Ab/Pelvis: Radiologist's impression: INDICATIONS: New adrenal cancer diagnosis. Follow up for evaluation for metastatic disease. TECHNIQUE: CT chest, abdomen and pelvis acquired with 99 cc of Isovue 370 IV contrast. COMPARISON: CT abdomen without and with contrast 08/16/2023. FINDINGS: Chest: Small bilateral pleural effusions are similar. No pericardial effusion. No pathologic mediastinal or hilar lymphadenopathy. Aortic atherosclerosis. Thoracic aorta and main pulmonary arteries are normal in caliber. Coronary artery calcifications. Heart size is within normal limits. Soft tissues of the thoracic wall are unremarkable. No pneumothorax. Central airways are patent. Mild emphysema. Bilateral lower lobe atelectasis, unchanged. Lungs are otherwise clear. No suspicious nodule or acute airspace disease. Abdomen: Bilateral adrenal masses measuring up to 11.8 cm on the left and 6.1 cm on the right are unchanged. No focal liver lesion. Cholelithiasis. No biliary ductal dilatation. Spleen and pancreas are unremarkable. Bilateral renal cysts are unchanged. No hydronephrosis. No obstruction or acute inflammatory change involving the GI tract. Normal appendix. Aortocaval and right iliac chain lymphadenopathy is unchanged. No abdominal free fluid. Atherosclerotic disease with 3.5 cm infrarenal abdominal aortic aneurysm, as before. There is occlusion of the right external iliac artery with reconstitution of flow in the proximal superficial femoral artery. Pelvis: Prostate and bladder as imaged are unremarkable. Pelvic portions of the GI tract are unremarkable. Pathologic right external iliac node on image 222 of series 2 measures 2.1 cm. Trace pelvic free fluid. Mild body wall edema. Bone windows: Demineralization and degenerative changes. No acute or suspicious osseous abnormality. IMPRESSION: 1. No evidence of metastatic disease in the chest. Small bilateral pleural effusions and lower lobe atelectasis are unchanged. 2. Bilateral adrenal masses, left greater than right consistent with known malignancy are unchanged. 3. 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 4. Trace pelvic free fluid. 5. Infrarenal abdominal aortic aneurysm measuring 3.5 cm, unchanged. Occlusion of the right external iliac artery with reconstitution of flow in the proximal superficial femoral artery. Discharge Plan Discharge Disposition: [facility] Date of Admission: 08/12/23 03:10 Attending Provider on Discharge: Manoj Harvey Consulting Providers: Sarina Corona; Aquiles Alanis; Marla Knott Primary Care Provider: Alfredo Starr Anticipated Discharge Date/Time: 08/20/23 11:00 Discharge Medications: New potassium chloride 10 mEq Capsule, Extended Release 20 meq PO DAILYWM Qty: 60 0RF torsemide 20 mg Tablet 20 mg PO DAILY@0800 Qty: 30 0RF lidocaine 5 % Adhesive Patch,Medicated 1 patch transdermal Q24H Qty: 30 0RF metoprolol succinate 25 mg Tablet Extended Release 24 Hr 25 mg PO DAILY Qty: 30 0RF hydrocortisone 10 mg Tablet 10 mg PO QPM Qty: 30 0RF hydrocortisone 10 mg Tablet 20 mg PO DAILY Qty: 60 0RF nystatin 100,000 unit/gram Powder 1 applic topical BID Qty: 60 0RF fludrocortisone 0.1 mg Tablet 0.1 mg PO DAILY Qty: 30 0RF Eliquis 5 mg Tablet 5 mg PO BID Qty: 60 0RF Continued atorvastatin 80 mg tablet 80 mg PO HS lisinopril 10 mg tablet 10 mg PO DAILY Changed gabapentin 300 mg capsule 600 mg PO BID Qty: 120 0RF Discontinued aspirin 81 mg tablet,delayed release (DR/EC) 81 mg PO DAILY furosemide 20 mg tablet 20 mg PO BID Qty: 180 3RF warfarin 3 mg tablet 3 mg PO DAILY Protocol: Dose Management Condition: Wednesday Dose/Route: 3 mg Instruction: 1 x 3 mg tablet Condition: Wednesday Dose/Route: 3 mg Instruction: 1 x 3 mg tablet Condition: Wednesday Dose/Route: 3 mg Instruction: 1 x 3 mg tablet Condition: Wednesday Dose/Route: 3 mg Instruction: 1 x 3 mg tablet Condition: Dose/Route: 3 mg Instruction: 1 x 3 mg tablet Condition: Wednesday Dose/Route: 3 mg Instruction: 1 x 3 mg tablet Condition: Wednesday Dose/Route: 3 mg Instruction: 1 x 3 mg tablet Protocol Text: Adjustment Start Date: Wednesday05/17/23 INR Value: 1.9 INR Date: 05/12/23 Recheck Date: 06/16/23 Rx Instructions: 3mg daily ibuprofen 200 mg tablet 200 mg PO BID Discharge Orders: Discharge Order (Routine); Ordered 08/20/23 Ordered By: Manoj Harvey Activity Level: Up with assist Discharge Diet: Heart Healthy (2 gm sodium, low fat) Follow Up Appointments: Alfredo Starr MD [Primary Care Provider] - Forms: [facility] Info Instructions Admit to: SNF Discharge Potential: Fair Can use facility standing orders?: Yes Code Status: DNR/DNI Rehab Potential: Fair Therapy: Physical Therapy and Occupational Therapy Therapy Orders: Evaluate and Treat Oxygen: No Lab Orders: CBC and Basic metabolic panel in 4-5 days
[2023-08-20] MEDS: HYDROCORTISONE 10 MG TABLET 20 MG PO (09:20)
[2023-08-20] MEDS: APIXABAN 5 MG TABLET PO (09:21)
[2023-08-20] MEDS: METOPROLOL SUCCINATE (XL) 25 MG TAB PO (09:21)
[2023-08-20] MEDS: GABAPENTIN 300 MG CAPSULE 600 MG PO (09:21)
[2023-08-20] MEDS: lisinopriL 10 MG TABLET PO (09:21)
[2023-08-20] MEDS: FLUDROCORTISONE ACETATE 0.1 MG TABLET PO (09:21)
[2023-08-20] MEDS: SODIUM CHLORIDE 0.9 % (FLUSH) 10 ML SYRINGE 5 ML IVF (09:26)
[2023-08-20] MEDS: NYSTATIN POWDER 1 APPLIC TOPICAL (09:27)
--- NOTE | 2023-08-20 10:31 | PC.SOCIAL ---
Addendum entered by Adrianne Mcpherson, [facility] 08/20/23 13:05: Discharge planning: Met with pt earlier today and provided him with a copy of The Important Message from Medicare form. Pt had no concerns about discharging. Social work to follow-up as needed. Addendum entered by Adrianne Mcpherson, [facility] 08/20/23 10:56: Discharge planning: hospice social worker also updated Tia at [facility] of pt discharging to [facility] today. Tia will follow-up with [facility] on Wednesday. Social work to follow-up as needed. Addendum entered by Adrianne Mcpherson, [facility] 08/20/23 10:46: Discharge planning: hospice social worker updated Maruambreen Gooden with [facility] that pt was discharging to [facility] today. hospice social worker also sent Maru pt's discharge summary via secure email per her request. Social work to follow-up as needed. Original Note: Discharge planning: Pt will be discharging to [facility] today for short-term rehab. Pt will transport via non-emergent EMS, pick-up time is between 11:45-12:30pm. Pt needs to be to [facility] by 2pm. hospice social worker talked to both of pt's HCD agents Analisa and Silvano today. Aanlisa is out of town, but Will is going to bring some of pt's belongings to [facility]; i.e., change of clothes for pt, pt's wheelchair, etc.). hospice social worker secure emailed and faxed the discharge orders to the needed staff at [facility]. They did confirm with this aids social worker that they received the orders. Social work to follow-up as needed.
--- NOTE | 2023-08-20 12:11 | PC.NURSE ---
Discharge: Patient discharged at 1200 to [facility] via non-emergent vehicle on stretcher. Guardian was present. RN gave report to nurse Ledesma via phone. Patient and RN signed discharge packet form.
== END 2023-08-20 12:00 | DRG 643 ==
LOC: ED 08-12 03:01 → MEDSURG 08-12 03:12
PROVIDERS: Family Medicine; Internal Medicine; Physician Assistant; Admitting Provider Family Medicine; Emergency Provider Family Medicine; PCP Family Medicine; Visit Provider Family Medicine
DX: E27.2 Addisonian crisis (principal); G93.41 Metabolic encephalopathy; N17.9 Acute kidney failure, unspecified; D62 Acute posthemorrhagic anemia; D68.51 Activated protein C resistance; I50.22 Chronic systolic (congestive) heart failure; I13.0 Hypertensive heart and chronic kidney disease with heart failure and stage 1 through stage 4 chronic kidney disease, or unspecified chronic kidney disease; K92.0 Hematemesis; K92.2 Gastrointestinal hemorrhage, unspecified; N17.8 Other acute kidney failure; C79.72 Secondary malignant neoplasm of left adrenal gland; C79.71 Secondary malignant neoplasm of right adrenal gland; K92.1 Melena; E87.5 Hyperkalemia; R53.1 Weakness; Z79.01 Long term (current) use of anticoagulants; I95.89 Other hypotension; Z91.81 History of falling; G31.84 Mild cognitive impairment of uncertain or unknown etiology; E78.5 Hyperlipidemia, unspecified; G89.29 Other chronic pain; G54.6 Phantom limb syndrome with pain; M54.50 Low back pain, unspecified; L98.9 Disorder of the skin and subcutaneous tissue, unspecified; D69.6 Thrombocytopenia, unspecified; R00.0 Tachycardia, unspecified; E27.9 Disorder of adrenal gland, unspecified; E86.0 Dehydration; S30.92XD Unspecified superficial injury of abdominal wall, subsequent encounter; G47.34 Idiopathic sleep related nonobstructive alveolar hypoventilation; G47.30 Sleep apnea, unspecified; Z85.828 Personal history of other malignant neoplasm of skin; I73.9 Peripheral vascular disease, unspecified; Z86.718 Personal history of other venous thrombosis and embolism; Z89.611 Acquired absence of right leg above knee; I25.10 Atherosclerotic heart disease of native coronary artery without angina pectoris; Z86.711 Personal history of pulmonary embolism; K44.9 Diaphragmatic hernia without obstruction or gangrene; Z72.0 Tobacco use; E27.49 Other adrenocortical insufficiency; L98.491 Non-pressure chronic ulcer of skin of other sites limited to breakdown of skin; L89.159 Pressure ulcer of sacral region, unspecified stage; F10.21 Alcohol dependence, in remission; S31.103A Unspecified open wound of abdominal wall, right lower quadrant without penetration into peritoneal cavity, initial encounter
CPT/HCPCS: 00731; 36415; 36430; 43239; 51798; 70450; 71045; 71260; 72131; 74170; 74177; 80048; 80053; 80306; 81001; 81003; 82077; 82088; 82270; 82533; 82607; 82746; 83605; 83880; 84244; 84439; 84443; 84484; 85018; 85025; 85027; 85045; 85610; 86140; 86850; 86900; 86901; 86922; 87040; 87086; 87493; 88305; 93005; 93306; 94761; 97110; 97162; 97166; 97530; 97535; 99100; 99140; 99284; 99285; A9270; J0613; J1650; J1720; J2704; J7030; J7042; J7050; P9016; Q9957; Q9967

== ENCOUNTER 2023-08-20 11:41 | Outpatient (CLI) | payer OTHER, SELFPAY ==
--- OUTSIDE RECORDS SUMMARY | 2023-08-27 16:32 | XMS_ITS | Encounter Summary ---
Author Organization [place] Address [facility] [place] [address] Care Team Providers Care Bracelet Form Coverer Name Role Phone Alfredo Starr MD Primary Care Provider [phone] Elif Souza MD Unavailable Unavailable Reason for Visit * Reason Comments WOUND CARE Encounter Details Date Type Department Care Team (Late st Contact Info) Description 06/15/2023 1:14 PM CDT - 06/15/2023 11:59 PM CDT Hospital Encounter [facility] [place] [address] [place] [address] Mellisa Hill PA-C [facility] [address] [facility] [place] [address] Right groin ulcer, with fat [...] -Darleen will try and get records from [facility] to get a better history of your wound -Follow with a feed management advisor to look at lesions on head and face and left leg. [facility] [phone]. Located in [place]. Could Call PCP for further recommendations in [facility]. Wound Dressing Change: Right Groin - [...] PA-C June 15, 2023 Call us at [phone] if you have any questions about your [...] your patient satisfaction survey form [facility] will be sending you. It was a [...] any billing related questions please call the [facility] Business office at [phone].The clinic staff does not handle billing related [...] from the original note were not included. [facility] ASSESSMENT: Full thickness ulcer [...] why. Will attempt to obtain records from [facility] to get better picture of the history of this area and whether or not he was radiated there. It is unclear why he would have radiation in this area if he has nohistory of skin cancer there. If sweating is part of the picture I would consider using drysol locally in an attempt to minimize this Recommended he see a feed management advisor for the suspicious lesions on his scalp, [...] for details. He states it was in [place] VITALS: BP 95/62 (BP Location: Left arm, [...] 2.4 cm^3 06/15/23 131 Wound healing % -90466.33 06/15/23 131 Drainage Characteristics/Odor sanguineous 06/15/231316 Drainage [...] -Darleen will try and get records from [facility] [address] [facility] to get a better history of your wound -Follow with a feed management advisor to look at lesions on head and face and left leg. [facility]: [phone]. Located in [place]. Could Call PCP for further recommendations in [facility]. Wound Dressing Change: Right Groin - [...] PA-C June 15, 2023 Call us at [phone] if you have any questions about your [...] that [facility]. It [...] any billing related questions please call the [facility] Business office at [phone].The clinic staff does not handle billing related [...] Info) Description 09/08/2023 1:30 PM CDT Appointment [facility] [place] [address] [place] [phone] Oseas Ta, BUSINESS OBJECTS CAR LOT ATTENDANT [address] [place] [address] documented as of this encounter Visit Diagnoses Diagnosis Right groin ulcer, with fat layer exposed (H)- Primary documented in this encounter Care Teams Bracelet Form Coverer Relationship Specialty Start Date End Date Alfredo Starr MD PCP - General Family Practice 12/11/14 Elif Souza MD Resident Student in organized health care education/training program 12/11/14 documented as of this encounter
--- OUTSIDE RECORDS SUMMARY | 2023-08-27 16:32 | XMS_ITS | Clinical Summary ---
Author Organization [employer] [facility] Address [place], [place] [address] Care Team Providers Care Top Bottom Attaching Machine Operator Name Role Phone Alfredo Starr MD Primary Care Provider [phone] Allergies Active Allergy Reactions Criticality Noted Date [...] Pain was well controlled here on dilaudid GUIDE DOG TRAINER on following regimen: LOADING DOSE: 0.2 mg for 1 dose GUIDE DOG TRAINER BOLUS DOSE: 0.2-0.3 mg LOCKOUT INTERVAL: 10 [...] Description 08/15/2023 9:50 AM CDT Ancillary Procedure [facility] [address] [place] [address] from Last 3 Months Immunizations Name Administration [...] Comments Blood Pressure 123/73 04/16/2014 2:19 PM MEASURER MACHINE Pulse 115 04/16/2014 2:19 PM MEASURER MACHINE Temperature 38.3 ??C (100.9 ??F) 04/16/2014 3:[address] Respiratory Rate 20 04/16/2014 2:19 PM MEASURER MACHINE Oxygen Saturation 94% 04/16/2014 2:19 PM MEASURER MACHINE Inhaled Oxygen Concentration - - Weight 86.1 kg (189 lb 13.1 oz) 04/16/2014 5:00 AM MEASURER MACHINE Height 180.3 cm (5' 10.98) 04/02/2014 12:00 AM MEASURER MACHINE Body Mass Index 26.49 04/02/2014 12:00 AM MEASURER MACHINE Plan of Treatment Health Maintenance Due [...] 65+ 10/24/2023 Medical Devices Implanted Type Area Barge Loader Device Identifier Shelf Expiration Date Model / Serial / Lot [id number] [[id number]] Implanted:Qty: 1 on 06/24/2010 at [facility] Explanted:at [facility] (Quantity not on file) Spine Medtronic 11/05/[id number]# / [id number] / [id number] [[id number]][[id number]] Implanted:Qty: 1 on 06/24/2010 at [facility] Explanted:at [facility] (Quantity not on file) Spine Medtronic 11/05/[id number]# / [id number] / [id number] tty Progenix Dbm 1cc [[id number]][[id number]] Implanted:Qty: 1 on 06/24/2010 at [facility] Explanted:at [facility] (Quantity not on file) Spine Medtronic 11/28/2011 [id number]# / [id number] / Plate 42.5mm Zephir - [id number] Implanted:Qty: 1 on 06/24/2010 at [facility] N/A: Spine SOFAMOR DANEK [id number]# / / Screw Self Drilling 4.0x15mm - [id number] Implanted:Qty: 1 on 06/24/2010 at [facility] N/A: Spine SOFAMOR DANEK [id number]# / / Screw Self Drilling 3.5x15mm - [id number] Implanted:Qty: 4 on 06/24/2010 at [facility] N/A: Spine SOFAMOR DANEK [id number]# / / Screw Locking Fixed 4.28k97xj - [id number] Implanted:Qty: 1 on 03/17/2012 at [facility] Left: Shoulder BIOMET [id number]# / / [id number] Glenosphere 41mm Std Co Cr Comprehensive - [id number] Implanted:Qty: 1 on 03/17/2012 at [facility] Left: Shoulder BIOMET [id number]# / / [id number] Screw 6.5x35mm Rev - [id number] Implanted:Qty: 1 on 03/17/2012 at [facility] Left: Shoulder BIOMET [id number]# / / [id number] Bearing Humeral 44 -41 +3 Arcom Xl - [id number] Implanted:Qty: 1 on 03/17/2012 at [facility] Left: Shoulder BIOMET [id number]# / / [id number] Stem Hum Sz13 Comprehensive Mini Co Cr - [id number] Implanted:Qty: 1 on 03/17/2012 at [facility] Left: Shoulder BIOMET [id number]# / / [id number] Glenosphere Mini Baseplate Implanted:Qty: 1 on 03/17/2012 at [facility] Left: Shoulder [id number] / / [id number] Description:GLENOSPHERE MINI BASEPLATE Humeral Tray Implanted:Qty: 1 on 03/17/2012 at [facility] Left: Shoulder [id number] / / [id number] Description:HUMERAL TRAY Screw Locking 4.64y09mc Fixed - [id number] Implanted:Qty: 1 on 03/17/2012 at [facility] Left: Shoulder BIOMET [id number]# / / [id number] Screw Locking Fixed 4.39g04mh - [id number] Implanted:Qty: 1 on 03/17/2012 at [facility] Left: Shoulder BIOMET 193372# / / [id number] Screw Locking Fixed 4.41e74dc - [id number] Implanted:Qty: 1 on 03/17/2012 at [facility] Left: Shoulder BIOMET [id number]# / / [id number] Explanted Type Area Barge Loader Device Identifier Shelf Expiration Date Model / Serial / Lot Patch Vasc 0.8x8cm Xenosure Biological Pericardial - [id number] Explanted:Qty: 1 on 03/09/2014 at [facility] Right: Leg [employer] 0.8P8# / / [id number] Procedures Procedure Name Priority Date/Time Associated Diagnosis [...] ECHOCARDIOGRAM TL Ratliff BENEDICT ? Accession#: ?? [id number] : ?1940 83 years Study Date: ?? 08/15/2023 10:01:51 AM Gender: M ?BP: ? 148/84 mmHg Height: 183.00 cm ?BSA: ?2.11 m? ? ? Weight: 89.00 kg ? Tech: ? MCK ? Referring MD: MANOJ HARVEY Site: ? [facility] Reading Location: [facility] Patient Location: Inpatient. Procedure: 2D w/ Contrast, [...] documentation: 3 ml diluted Definity, lot #[id number], [facility]# [id number] was administered peripherally to enhance visualization of all left ventricular segments. . This study was interpreted by an [facility] accredited facility. CC: Med/Surg - IP [facility], Med/Surg - IP [facility]. ??Final ?? Procedure Note Rik Devine MD - 08/15/2023 ECHOCARDIOGRAM TL LUGO : 1940 83 years Study Date: 08/15/2023 10:01:51 AM Gender: M BP: 148/84 mmHg Height: 183.00 cm BSA: 2.11 m? ? ? Weight: 89.00 kg Tech: AMANDA Referring MD: MANOJ HARVEY Site: [facility] Reading Location: [facility] Patient Location: Inpatient. Procedure: 2D w/ Contrast, [...] documentation: 3 ml diluted Definity, lot #[id number], [facility]#[id number] was administered peripherally to enhance visualization of allleft ventricular segments. . This study was interpreted by an [facility] accredited facility. CC: Med/Surg - IP [facility], Med/Surg - IP [facility]. 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
--- OUTSIDE RECORDS SUMMARY | 2023-08-27 16:32 | XMS_ITS | Clinical Summary ---
Author Organization [facility] Address [address] [place] [address] Care Team Providers Care Title Vehicle Service Attendant Name Role Phone Radha Chappell APRN C.N.PJhon Primary Care Provi matteo Source Comments Patient records contain information from all sites at [facility]. For routine questions regarding patient records, call [phone] during business hours, M-F 8:00 AM - 5:00 PM Central Time. Record requests for emergency care only can be directed to [phone] at any time.[facility] Allergies Active Allergy Reactions Criticality Noted Date Comments Latex Rash 04/16/2020 Medications Medication Sig Dispensed Refills Start Date End Date Status gabapentin (NEURONTIN) 300 mg capsule Take 600 mg by mouth 2 (two) times a day. 08/20/2023 Active atorvastatin (LIPITOR) 80 mg tablet Take 80 mg by mouth at bedtime. 08/20/2023 Active fludrocortisone (Florinef) 0.1 mg tablet Take 0.1 mg by mouth every morning. 08/20/2023 Active hydrocortisone (Cortef) 10 mg tablet Take 10 mg by mouth every evening. 08/20/2023 Active hydrocortisone (Cortef) 20 mg tablet Take 20 mg by mouth daily with breakfast. 08/20/2023 Active lidocaine (Salonpas, lidocaine,) 4 % adhesive patch,medicated Place 1 patch on the skin daily. Apply to Back; On for 12 hours, Off for 12 hours. 08/20/2023 Active lisinopriL 10 mg tablet Take 10 mg by mouth every morning. 08/20/2023 Active metoprolol succinate (Toprol XL) 25 mg 24 hr tablet Take 25 mg by mouth every morning. Do not crush or chew. 08/20/2023 Active potassium chloride (K-Tab) 20 mEq ER tablet Take 20 mEq by mouth every morning. 08/20/2023 Active torsemide (Demadex) 20 mg tablet Take 20 mg by mouth daily. 08/20/2023 Active apixaban (Eliquis) 5 mg tablet Take 5 mg by mouth 2 (two) times a day. 08/20/2023 Active acetaminophen (TylenoL) 325 mg tablet Take 650 mg by mouth every 4 (four) hours as needed for pain. 08/23/2023 Active LORazepam (Ativan) 0.5 mg tablet Take 1 tablet (0.5 mg total) by mouth every 4 (four) hours as needed for anxiety for up to 14 days. 30 tablet 08/24/2023 09/07/2023 Active morphine 20 mg/mL concentrated solutionIndication s:Acute Pain Exception Place 0.25 mL (5 mg total) under the tongue every 4 (four) hours as needed for pain Indication: Acute Pain Exception. 30 mL 08/24/2023 Active furosemide (LASIX) 20 mg tablet 2 (two) times a day. 04/12/2020 08/24/2023 Discontinue d(Therapy completed) warfarin (COUMADIN) 4 mg tablet Take one-half tablet . Take a full tablet all other days 01/17/2020 08/24/2023 Discontinue d(Therapy completed) aspirin [address] tablet Take 81 mg by mouth daily. 08/24/2023 Discontinue d(Therapy completed) ibuprofen (ADVIL,MOTRIN) 200 mg tablet Take 200 mg by mouth every 6 (six) hours as needed for pain. 08/24/2023 Discontinue d(Therapy completed) UNABLE TO FIND 200 each. Ibuprofen PM 200/38 08/24/2023 Discontinue d(Therapy completed) HYDROcodone-acetam inophen (NORCO) 5-325 mg per tabletIndications: Prolonged Acute Pain/Traumatic Injury Take 1 tablet by mouth every 6 (six) hours as needed for severe pain or score 7-10 of 10 Indication: Prolonged Acute Pain/Traumatic Injury. 20 tablet 08/08/2020 08/24/2023 Discontinue d(Therapy completed) Active Problems Problem Noted Date Diagnosed Date Other Specified Disorders Of Adrenal Gland 08/23 Overview: Incidental finding. CT shows Large bilateral adrenal masses, 11 cm on the left, 5 cm on the right. CT adrenal protocol is concerning for metastatic disease in the area of the adrenal glands with lymphadenopathy. CT chest abdomen and pelvis to evaluate for source of metastatic disease showed no obvious other focus of malignancy. Initially patient wanted biopsy for diagnostic purposes. He is now deciding against pursuing cancer diagnosis or treatment. Continuing to review options with the patient. Other Chronic Pain 08/24/2023 Overview: History of chronic pain including shoulders, back, phantom limb pain. No significant complaints about pain in the last several days. On acetaminophen, lidocaine patch, gabapentin. Stop ibuprofen. Hemorrhage Gastrointestinal 08/24/2023 Overview: Uncertain history of outpatient bleeding. Hemoccult positive on admission but subsequently no evidence of ongoing bleeding. Received blood transfusion for severe anemia. EGD showed no active bleeding and no source of high risk bleeding. Mild gastritis. No evidence of ongoing bleeding. Hemoglobin stable. 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 Much improved. Creatinine at 5.4 on August 11/admission. Creatinine stable at 1.2. Cancer Skin In Situ 08/24/2023 Anemia 08/24/2023 Overview: Hemoglobin in the ED 7.5, on recheck on arrival to floor 4.7, however redrawn immediately and noted to be 7.0 Transfused 2 units PRBC Hemoglobin is stable Continue apixaban. Stop warfarin, aspirin, ibuprofen Addisonian Crisis 08/24/2023 Overview: Admitted with presumed acute adrenal crisis with hypotension, hyperkalemia, altered mental status, low blood sugar, bilateral adrenal masses on CT. Responded well to IV and now oral hydrocortisone. Random cortisol level was relatively normal at 8 prior to hydrocortisone. Hypotension 08/24/2023 Overview: On admission had hypotension. Received fluid resuscitation, blood transfusion and then pressors. In addition to blood loss causing anemia and hypotension, it was felt he had adrenal insufficiency. With hydrocortisone his blood pressure normalized. Weakness General 08/24/2023 Overview: Generalized, in setting of above. Prior to admission was apparently living independently but unclear how well he was doing with mobility environmental services specialist - patient lives independently in his own apartment. Currently not able to transfer independently. 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 Hyperlipidemia 09/16/2009 Overview: Restart statin Chronic Kidney Disease (CKD), Stage 3 Unspecifie d 05/06/2009 Overview: baseline creatinine 1.4-1.5 baseline creatinine 1.4-1.5 With acute renal failure as noted above Baseline creatinine 1.3-1.6 Continue management as above Cardiomyopathy In Diseases Classified Elsewhere 05/02/2009 Overview: Per preop, EF of 39% Per preop, EF of 39% Peripheral Vascular Disease 04/30/2009 Atherosclerotic Heart Diseas e Of [place] Coronary Artery Without Angina Pectoris 04/30/2009 Overview: Currently asymptomatic Hypertensive Heart And Chron ic Kidney Disease With Heart Failure And Stage 1 To 4 Chronic Kidney Disease Or Unspecified Chronic Kidney Disease 04/30/2009 Overview: Resume blood pressure medicines. Chronic Systolic (Congestive) Heart Failure 05/2007 Overview: Resume lisinopril 08/15/2023. Patient occasionally refusing diuretic. Switch from furosemide b.i.d. to torsemide daily to improve compliance Echocardiogram shows normal LV size , ejection fraction of 55-60%, increased wall thickness, basal inferior wall motion, dilated aorta at 4.6 cm. At risk for heart failure due to medication noncompliance. Cardiomegaly 05/27/2007 Encounters Date Type Department Care Team Description 08/24/2023 8:30 AM CDT External Outreach [facility] [place] [address] [place] [address] Radha Chappell, DAIRY WORKER, C.N.P. Other Specified Disorders Of Adrenal Gland (HCC) (Primary Dx); Addisonian Crisis (HCC); Anemia; Hemorrhage Gastrointestinal; Failure Renal; Acute Respiratory Failure With Hypoxia (HCC); Cardiomegaly; Cardiomyopathy In Diseases Classified Elsewhere (HCC); Chronic Systolic (Congestive) Heart Failure (HCC); Hypertensive Heart And Chronic Kidney Disease With Heart Failure And Stage 1 To 4 Chronic Kidney Disease Or Unspecified Chronic Kidney Disease (HCC); Hypotension; Atherosclerotic Heart Disease Of [place] Coronary Artery Without Angina Pectoris; Chronic Kidney Disease (CKD), Stage 3 Unspecified (HCC); Activated Protein C Resistance (HCC); Embolus Pulmonary Personal History; 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 Hypertension Pulmonary (HCC); Anemia Discharge Disposition: Home or Self Care 08/23/2023 Clinical Communication [facility] [place] [address] [place] [address] Janeen Jorge R.N. 08/21/2023 12:59 PM CDT - 08/21/2023 2:39 PM CDT Emergency [place] [facility] [address] [place] [address] Srinivasan Grande M.D. Tachycardia (Primary Dx); Hypoxia Discharge Disposition: Home or Self Care from Last 3 Months Social History Tobacco Use Types Packs/Day Years Used Date Smoking Tobacco: Every Day Cigars Tobacco Cessation:Ready to Q uit: Not Asked; Counseling Given: Not Answered Alcohol Use Standard Drinks/Week Comments Not Currently 0 (1 standard drink = 0.6 oz pur e alcohol) Nutrition Answer Date Recorded Nutrition: EVOO Fat Source 13 11/06 Nutrition: Servings of Fruits/Vegetables per Day Not on file 11/07/2019 Dental Answer Date Recorded Dental: Regular Dentist Unknown 04/12/19 21 Sex and Gender Information Value Date Recorded Sex Assigned at Not on file Gender Identity Not on file Sexual Orientation Not on file Last Filed Vital Signs Vital Sign Reading Time Taken Comments Blood Pressure 71/66 08/24/2023 8:02 AM CDT Provider notified of BP. Vitals per SNF EHR Pulse 95 08/24/2023 8:02 AM CDT Temperature 35.9 ??C (96.7 ??F) 08/24/2023 8 :02 AM CDT Respiratory Rate 18 08/24/2023 8:02 AM CDT Oxygen Saturation 93% 08/24/2023 8:0 2 AM CDT O2 per NC Inhaled Oxygen Concentration - - Weight 85.4 kg (188 lb 3.2 oz) 08/24/2023 8:02 AM CDT Height - - Body Mass Index - - Plan of Treatment Health Maintenance Due Date Last Done Comments Zoster Vaccines (1 of 2) 1992 Fall Risk Screen (Annual) 02/22/2023 COVID-19 Vaccine (2022-2 4 season) 2023 02/05/2023, 07/01/2021, 02/06/2021, Additional history exists Influenza Vaccine (#1) 2023 DTaP,Tdap,and Td Vaccines (3 - Td or Tdap) 01/02/2030 01/03/2020, 04/30/2009 Pneumococcal vaccine (65+ years) Completed 08/23/19 15, 04/30/2009 Procedures Procedure Name Priority Date/Time Associated Diagnosis Comments DX CHEST PORTABLE 1 VIEW RAD - Semiurgent (Fast; most ED patients; some inpatients) 08/21/2023 1:23 PM CDT ECG STAT 08/21/2023 12:48 PM CDT from Last 3 Months Results * DX Chest Portable 1 View (08/21/2023 1:23 PM CDT) Anatomical Region Laterality Modality Chest, Thoracic RST LOS, Tho racic ARZ LOS, Thoracic FLA LOS N/A Digital Radiography Impressions 08/21/2023 1:26 PM CDT 1. No acute cardiopulmonary disease. 2. Mild prominence of the interstitium suggesting underlying fibrosis. Narrative 08/21/2023 1:26 PM CDT EXAM: DX CHEST PORTABLE 1 VIEW COMPARISON: None FINDINGS: Mild cardiomegaly. Ectasia of the thoracic aorta. No hilar or mediastinal masses or pathologically enlarged nodes. Mild prominence of the interstitium suggesting underlying fibrosis. No focal infiltrates or significant effusions. No acute osseous abnormality. Multilevel degenerative changes of the spine. Status post anterior cervical fusion. Left total shoulder reverse arthroplasty. Procedure Note Benedicto Gonzalez M.D. - 08/21/2023 EXAM: DX CHEST PORTABLE 1 VIEW COMPARISON: None FINDINGS: Mild cardiomegaly. Ectasia of the thoracic aorta. No hilar ormediastinal masses or pathologically enlarged nodes. Mild prominence ofthe interstitium suggesting underlying fibrosis. No focal infiltrates orsignificant effusions. No acute osseous abnormality. Multilevel degenerative changes of the spine. Statuspost anterior cervical fusion. Left total shoulder reverse arthroplasty. IMPRESSION: 1. No acute cardiopulmonary disease. 2. Mild prominence of the interstitium suggesting underlying fibrosis. Srinivasan Grande M.D. IMG DIAGNOSTIC IMAGI NG PROCEDURES * ECG 12 Lead (08/21/2023 12:48 PM CDT) Ventricular Rate ECG/Min 118 BPM MUSE MT Interval 170 ms MUSE QRSD Interval 102 ms MUSE QT Interval 310 ms MUSE QTC Interval 434 ms MUSE P [place] 36 degrees MUSE R [place] -2 degrees MUSE T Wave [place] 107 degrees MUSE 08/21/2023 12:4 8 PM CDT 08/21/2023 1:21 PM CDT Impressions MUSE - 08/21/2023 1:21 PM CDT Sinus tachycardia Inferior infarct , age undetermined ST and T wave abnormality, consider lateral ischemia No previous ECGs available Reviewed by MICKY Darnell Narrative Procedure Note Ovidio Keating M.D. - 08/21/2023 IMPRESSION: Sinus tachycardia Inferior infarct , age undetermined ST and T wave abnormality, consider lateral ischemia No previous ECGs available Reviewed by MICKY Darnell Srinivasan Grande M.D. 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 [address] [place] [address] PCP - General Family Medicine 08/20/23
--- OUTSIDE RECORDS SUMMARY | 2023-08-27 16:32 | XMS_ITS | Referral Summary ---
Author Organization [facility] Address [address] [facility] [place] [address] Care Team Providers Care Credit Assessment Analyst Name Role Phone Alfredo Starr MD Primary Care Provider [phone] Elif Souza MD Unavailable Unavailable Encounters Date Type Department Care Team Description 06/15/2023 Travel 06/15/2023 1:14 PM CDT - 06/15/2023 11:59 PM CDT Hospital Encounter [facility] [place] [address] [place] [address] [address] [place] [address] Mellisa Hill PA-C Right groin [...] Info) Description 09/08/2023 1:30 PM CDT Appointment [facility] [place] [address] [place] [address] Oseas Ta W, CHECK CLERK VALUE ANALYST [address] [place] [address] Procedures Procedure Name Priority Date/Time Associated Diagnosis Comments CTA CHEST WITH CONTRAST Routine 03/10/2014 8:06 PM BOLOGNA MAKER from Last 3 Months or Most Recently Relevant to Health Maintenance Care Teams Credit Assessment Analyst Relationship Specialty Start Date End Date Alfredo Starr MD PCP - General Family Practice 12/11/14 Elif Souza MD Resident Student in organized health care education/training program 12/11/14
--- OUTSIDE RECORDS SUMMARY | 2023-08-27 16:32 | XMS_ITS | Continuity of Care Document ---
Author Organization [facility] Address [address] [place] [address] Phone Care Team Providers Care Clinical Dietician Name Role Phone Jonathan ALVAREZ, Amivenancio Unavailable [...] 2015 Office/Outpatient Visit,Est, Mod 2013 Office/Outpatient Visit,New, [facility] 2013 X-Ray Exam Of Neck Spine, 4+ Views Neck Spine Fuse & Removal Addl 11 Addl Neck Spine Fusion Insert spine fix dev, ant, 2-3 seg Allograft, spine surg, structural Autograft, spine surgery, local 011 Allograft, spine surg, morselized Pre Op Office/outpatient visit, 011 X-ray exam of neck spine2-3 views Office/outpatient visit,est, mod 2010 Office/outpatient visit,new, [facility] 2010 Advance Directives Directive Yes / No Effective Date File Name No Information Encounters Encounter Description Practice Location Reason(s) For Visit Diagnoses Date Provider Providers Copied on Encounter Office/Outpa tient Visit,Est, Mod [facility], [address], [place], [place], [id number], [place] tel:[phone] [facility] Cervicalgia 6 Mehbod Nasreenr. [facility], [address], [place], [place], [id number], [place]. tel:[phone] Office/Outpa tient Visit,Est, Mod [facility], [address], [place], [place], [id number], [place] tel:[phone] [facility] Cervicalgia 6 Eckryanni Alberto. [address], [place], [place], [id number], [place]. tel:[phone] Office/Outpa tient Visit,Est, Mod Z [facility], [address], [place], [address], [place] tel:[phone] [facility] CERVICALGIA 0 4 Eckrynani Alberto. [address], [place], [id number], [place]. tel:[phone] Referring Provider: Alfredo Rubio, [facility] [address] [place], [address]. tel:[phone] Office/Outpa tient Visit,New, Mod Z [facility], [address], [place], [address], [place] tel:[phone] [facility] No Information 0 4 Ecmilagros Dominguez. [address] [place] [address], [place], [id number], [place]. tel:[phone] Referring Provider: Alfredo Rubio, [facility] [address] [place], [address]. tel:[phone] Z [facility], [address], [place], [address], [place] tel:[phone] [facility] No Information 1 No Information Referring Provider: Alfredo Rubio, [facility] [address] [place], [address]. tel:[phone] Pre Op Office/outpa tient visit, Z [facility], [address], [place], [address], [place] tel:[phone] [email or web address] No Information June-0 1 No Information Referring Provider: Alfredo Rubio, [facility] [address] [place], [address]. tel:[phone] Office/outpa tient visit,est, mod Z [facility], [address], [place], [address], [place] tel:[phone] [email or web address] No Information 0 1 No Information Referring Provider: Alfredo Rubio, [facility] [address] [place], [address]. tel:[phone] Office/outpa tient visit,new, mod Z [facility], [address], [place], [address], [place] tel:[phone] [email or web address] No Information 1 No Information Referring Provider: Alfredo Rubio, [facility] [address] [place], [address]. tel:[phone] Family History Family Member Type Diagnosis Age [...] Order: Radiology Order barbie Complete 2+ Views ([id number]), Ordered on: Ordered History Of Present Illness Encounter Date Complaint History Of Prese nt Illness No Information Functional Status Date Functional Assessmen t No Information Instructions Date Instruction Additional Infor mation No Information Assessments Type Assessment Date assessment Cervicalgia Patient Care Teams Name Effective Dates (start - stop) Status Members No Information
--- OUTSIDE RECORDS SUMMARY | 2023-08-27 16:32 | XMS_ITS | Referral Summary ---
Author Organization [facility] Address [address] [place] [address] Care Team Providers Care Shade Cloth Finisher Name Role Phone Radha Chappell APRN C.N.P. Primary Care Provi [facility] Source Comments Patient records contain information from all sites at [facility]. For routine questions regarding patient records, call [phone] during business hours, M-F 8:00 AM - 5:00 PM Central Time. Record requests for emergency care only can be directed to [phone] at any time.[facility] Encounters Date Type Department Care Team Description 08/24/2023 12:38 AM CDT - 08/24/2023 11:59 PM CDT Hospital Encounter Department of Laboratory Medicine in [place], [place] [address] [place] [address] Radha Chappell APRN, C.N.P. Hypertension Pulmonary (HCC); Anemia Discharge Disposition: Home or Self Care 08/24/2023 8:30 AM CDT External Outreach [facility] in [place] [address] [place] [address] Radha Chappell APRN, C.N.P. Other Specified Disorders Of Adrenal Gland [...] Disease (HCC); Hypotension; Atherosclerotic Heart Disease Of [place] Coronary Artery Without Angina Pectoris; Chronic Kidney [...] Status Post Right (HCC); Hyperlipidemia; Palliative Care 08/23/2023 Clinical Communication [facility] in [place] [address] [place] [address] Janeen Jorge R.N. 08/21/2023 12:59 PM CDT - 08/21/2023 2:39 PM CDT Emergency [place] [facility] [address] [place] [address] Srinivasan Grande M.D. 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 Cardiomegaly 05/27/2007 Social History Tobacco Use Types Packs/Day Years [...] CDT Provider notified of BP. Vitals per [facility] EHR Pulse 95 08/24/2023 8:02 AM CDT Temperature 35.9 ??C (96.7 ??F) 08/24/2023 8 :02 AM CDT Respiratory Rate 18 08/24/2023 8:02 AM CDT Oxygen Saturation 93% 08/24/2023 8:0 2 AM CDT O2 per [place] Inhaled Oxygen Concentration - - Weight 85.4 kg (188 lb 3.2 oz) 08/24/2023 8:02 AM CDT Height - - Body Mass Index - - Plan of Treatment Not on file Procedures Procedure Name Priority Date/Time Associated Diagnosis [...] CDT) Ventricular Rate ECG/Min 118 BPM MUSE [place] Interval 170 ms MUSE QRSD Interval 102 ms MUSE QT Interval 310 ms MUSE QTC Interval 434 ms MUSE P [place] 36 degrees MUSE R [place] -2 degrees MUSE T Wave [place] 107 degrees MUSE 08/21/2023 12:4 8 PM [...] MICKY Darnell Srinivasan Grande M.D. ECG ORDERABLES Performing Organization Address City/State/[place] Co de Phone Number MUSE NA from Last 3 Months Advance Directives For more information, please contact: [phone] Documents on File Type Date Recorded Patient Crna Expl anation Advance Directives 08/24/2023 1:04 PM POLST /MOLST * DNR/DNI (Latest Code Status on File) Date Activated Date Inactivated Comments 08/21/2023 1:09 PM 08/21/2023 5:12 PM Question Answer Comments DNR/DNI (Do Not Resuscitate/ Do Not Intubate): Discussed-Patient Reviewed POLST dated 08/20/19 24 Care Teams Shade Cloth Finisher Relationship Specialty Start Date End Date Radha Chappell, KNITTING MACHINE TENDER, C.N.P. [address] [place] [address] PCP - General Family Medicine 08/20/23
--- OUTSIDE RECORDS SUMMARY | 2023-08-27 16:32 | XMS_ITS | Clinical Summary ---
Author Organization [facility] Address [address] [facility] [place] [address] Care Team Providers Care Well Digger Name Role Phone Alfredo Starr MD Primary Care Provider Elif Souza MD Unavailable Unavailable Allergies Active [...] 06/15/2023 11:59 PM CDT Hospital Encounter [facility] [place] [address] [place] [...] Description 09/08/2023 1:30 PM CDT Appointment [facility] [place] [address] [place] [phone] Oseas Ta, GRAVEL INSPECTOR BONDACTOR MACHINE OPERATOR [address] [place] [address] Health Maintenance Due Date Last Done Comments [...] (once per calendar year) 2023 COVID-19 Vaccine (2022-24 season) 2023 02/05/2023, 07/01/2021, 02/06/2021, Additional history exists INFLUENZA VACCINE (#1) 2023 DTAP/TDAP/TD IMMUNIZATION (3 - Td or [...] CHEST WITH CONTRAST Routine 03/10/2014 8:06 PM LEAD FIRE PROTECTION ENGINEER from Last 3 Months or Most Recently Relevant to Health Maintenance Care Teams Well Digger Relationship Specialty Start Date End Date Alfredo Starr MD PCP - General Family Practice 10/20/15 Elif Souza MD Resident Student in organized health care education/training program 12/11/14
--- OUTSIDE RECORDS SUMMARY | 2023-08-27 16:32 | XMS_ITS | Encounter Summary ---
Author Organization [facility] Address [address] [place] [address] Care Team Providers Care Paper Testing Supervisor Name Role Phone Radha Chappell APRN C.N.PJhon Primary Care Provi [facility] Encounter Details Date Type Department Care Team (Late st Contact Info) Description 08/23/2023 Clinical Communication [facility] in [place] [address] [place] [phone] Janeen Jorge RJhonN. Social History Tobacco Use Types Packs/Day Years Used Date Smoking Tobacco: Every Day Cigars Alcohol Use Standard Drinks/Week Comments Not Currently [...] documented as of this encounter Miscellaneous Notes * Telephone Encounter - Janeen Jorge RJennifer. - 08/23/2023 1:17 PM CDT Received call from aCllie, nurse manager asset from [facility] where pt currently resides S: pt having 10/10 pain, staff seeking pain management options B: pt is new admit to facility, post hospital Acute Adrenal Crisis, altered mental status, bilateral adrenal masses A: pt is complaining of 10/10 on buttocks, redness area and staff stated it is irritated. R: Analytics Senior Manager billie Chappell APRN, C.N.PJhon, R.N. who gave the following orders: Calmoseptine external ointment 0.44-20.6% (Menthol-Zinc Oxide) - apply to coccyx topically 3xDay for skin irritation Ice to area as needed Initiate acetaminophen standing orders documented in this encounter Plan of Treatment Not on file documented as of this encounter Visit Diagnoses Not on filedocumented in this encounter Care Teams Paper Testing Supervisor Relationship Specialty Start Date End Date Radha Chappell APRN, C.N.P. [address] [place] [phone] PCP - General Family Medicine 08/20/23 documented as of this encounter
--- OUTSIDE RECORDS SUMMARY | 2023-08-27 16:32 | XMS_ITS ---
Author Organization [facility] Address [address] [place] [address] Care Team Providers Care Red Cross Worker Name Role Phone Unavailable Unavailable Unavailable Surgery Details Not on file Complications Check Surgery Details section. Procedure Estimated Blood Loss Check Surgery Details section. Procedure Findings Check Surgery Details section. Procedure Specimens Taken Check Surgery Details section.
--- OUTSIDE RECORDS SUMMARY | 2023-08-27 16:32 | XMS_ITS | Encounter Summary ---
Author Organization [facility] Address [address] [place] [address] Care Team Providers Care Health And Safety Specialist Name Role Phone Alfredo Starr MD Primary Care Provider [phone] Elif Souza MD Unavailable Unavailable Encounter Details [...] Info) Description 09/08/2023 1:30 PM CDT Appointment [facility] [place] [id number] [facility] [address] [place] [phone] Oseas Ta, WINDLASSER COUPON CLERK [address] [place] [address] documented as of this encounter Visit Diagnoses Not on filedocumented in this encounter Care Teams Health And Safety Specialist Relationship Specialty Start Date End Date Alfredo Starr MD PCP - General Family Practice 12/11/14 Elif Souza MD Resident Student in organized health care education/training program 12/11/14 documented as of this encounter
--- OUTSIDE RECORDS SUMMARY | 2023-08-27 16:32 | XMS_ITS | Encounter Summary ---
Author Organization [facility] Address [address] [place] [address] Care Team Providers Care Home Theater Installer Name Role Phone Radha Chappell APRN, C.N.P. Primary Care [facility] Encounter Details Date Type Department Care Team (Latest Contact Info) Description 08/24/2023 12:38 AM CDT - 08/24/2023 11:59 PM CDT Hospital Encounter Department of Laboratory Medicine in [place], [place] [address] [place] [phone] Radha Chappell APRN, C.N.P. [address] [place] [phone] Hypertension Pulmonary (HCC); Anemia Discharge Disposition: Home or Self Care Social [...] Sig Dispensed Refills Start Date End Date apixaban (Eliquis) 5 mg tablet Take 5 mg by mouth 2 (two) times a day. 08/20/2023 atorvastatin (LIPITOR) 80 mg tablet Take 80 mg by mouth at bedtime. 08/20/2023 fludrocortisone (Florinef) 0.1 mg tablet Take 0.1 mg by mouth every morning. 08/20/2023 gabapentin (NEURONTIN) 300 mg capsule Take 600 mg by mouth 2 (two) times a day. 08/20/2023 lidocaine (Salonpas, lidocaine,) 4 % adhesive patch,medicated Place 1 patch on the skin daily. Apply to Back; On for 12 hours, Off for 12 hours. 08/20/2023 lisinopriL 10 mg tablet Take 10 mg by mouth every morning. 08/20/2023 metoprolol succinate (Toprol XL) 25 mg 24 hr tablet Take 25 mg by mouth every morning. Do not crush or chew. 08/20/2023 potassium chloride (K-Tab) 20 mEq ER tablet Take 20 mEq by mouth every morning. 08/20/2023 acetaminophen (TylenoL) 325 mg tablet Take 650 mg by mouth every 4 (four) hours as needed for pain. 08/23/2023 hydrocortisone (Cortef) 10 mg tablet Take 10 mg by mouth every evening. 08/20/2023 hydrocortisone (Cortef) 20 mg tablet Take 20 mg by mouth daily with breakfast. 08/20/2023 LORazepam (Ativan) 0.5 mg tablet Take 1 tablet (0.5 mg total) by mouth every 4 (four) hours as needed for anxiety for up to 14 days. 30 tablet 08/24/2023 09/07/2023 morphine 20 mg/mL concentrated solutionIndications:Acut e Pain Exception Place 0.25 mL (5 mg total) under the tongue every 4 (four) hours as needed for pain Indication: Acute Pain Exception. 30 mL 08/24/2023 torsemide (Demadex) 20 mg tablet Take 20 mg by mouth daily. 08/20/2023 documented as of this encounter Plan of Treatment Not on file documented as of this encounter Visit Diagnoses Diagnosis Hypertension Pulmonary (HCC) Anemia documented in this encounter Care Teams Home Theater Installer Relationship Specialty Start Date End Date Radha Chappell APRN, C.N.P. [address] [place] [phone] PCP - General Family Medicine 08/20/23 documented as of this encounter
--- OUTSIDE RECORDS SUMMARY | 2023-08-27 16:32 | XMS_ITS ---
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 Currently not able to transfer independently. May need half-way facility for rehab Acute Respiratory Failure With [...] With complications, DVTs, PE, history of AKA 2015 Supratherapeutic INR while on Coumadin, not compliant [...] Disease 04/30/2009 Atherosclerotic Heart Diseas e Of [place] Coronary Artery Without Angina Pectoris 04/30/2009 Overview: [...] failure due to medication noncompliance. Cardiomegaly 05/27/2007 Current Oncology Plans No current plan information found. Past Plans No past plan information found. Radiation Treatments * Plan Last Treated On Elapsed Days Fractions Treated Prescribed Fraction Dose Prescribed Total Dose F1_LT Leg 05/15/2020 15 of 15 300 cGy 4,500 cGy F1_RTInguin al 05/06/2020 12 9 of 10 425 cGy 4,250 cGy F1_LTInguin al 04/26/2020 2 3 of 5 700 cGy 3,500 cGy Reference Point Last Treated On Elapsed Days Session Dose Total Dose [id number] 05/15/2020 21 300 cGy 4,500 cGy [id number] 05/06/2020 12 425 cGy 3,825 cGy [id number] 04/26/2020 2 700 cGy 2,100 cGy
--- OUTSIDE RECORDS SUMMARY | 2023-08-27 16:32 | XMS_ITS | Encounter Summary ---
Author Organization [facility] Address [address] [place] [address] Care Team Providers Care Worm Picker Name Role Phone Radha Chappell APRN C.N.P. Primary Care [facility] Reason for Referral * Medication Prior Authorization - Pending Review Specialty Diagnoses / Procedures Referred By Contac t Referred To Contact Radha Chappell APRN, C.N.PJhon [address] [place] [address] Referral ID Status Reason Start Date Expiration Date V isits Requested Visits Authorized [id number] Pending Review 08/24/2023 08/23/2024 1 1 Encounter Details Date Type Department Care Team (Late st Contact Info) Description 08/24/2023 8:30 AM CDT External Outreach [facility] [place] [address] [place] [address] Radha Chappell APRN, C.N.P. [address] [place] [address] Other Specified Disorders Of Adrenal Gland (HCC) [...] Disease (HCC); Hypotension; Atherosclerotic Heart Disease Of [place] Coronary Artery Without Angina Pectoris; Chronic Kidney [...] Status Post Right (HCC); Hyperlipidemia; Palliative Care Social History Tobacco Use Types Packs/Day [...] Index - - documented in this encounter Progress Notes * Luz Butcher L.P.N. - 08/24/2023 8:30 AM CDT Images from the original note were not included. SNF VISIT for New Admission visit New Admission to the facility. Recent Hospital admission: Yes,This resident was recently hospitalized at: [facility] Date of hospitalization: Admission Date: 08/12/2023 Discharge Date: 08/20/2023 Reason for hospitalization: Weakness Acute Adrenal Crisis Medication changes: yes Code Status: DNR Active issues needing follow up: No Patient made decision to not further pursue further work up. Active wound requiring treatment: No Wounds/L/D/A: None SNF Nurse concerns: unknown Future Appointments 08/24/2023 8:30 AM Radha Chappell APRN, C.N.PJhon, R.N. [facility] [place] Nursing Comments: Patient currently choosing to not pursue further cancer workup/treatment. Should patient change his mind, he would need a biopsy with IR of his adrenal mass and follow- up with Endocrine for adrenal insufficiency. * Radha Chappell APRN, C.N.Rakan, R.N. - 08/24/2023 8:30 AM CDT CHIEF COMPLAINT / REASON FOR VISIT The resident is being seen at [place], [place] for Post hospitalization Follow up and Goals of Care discussion Visit Visit Type: In Person Face-to- Face visit SUBJECTIVE HISTORY OF PRESENT ILLNESS Obtained from Patient, Nursing, and SBAR: SNF VISIT for New Admission visit New Admission to the facility. Recent Hospital admission: Yes,This resident was recently hospitalized at: [facility] Date of hospitalization: Admission Date: 08/12/2023 Discharge Date: 08/20/2023 Reason for hospitalization: Weakness Acute Adrenal Crisis Patient was admitted to the hospital for profound weakness and recurrent falls at home. He was found to be hypotensive with altered mental status, acute on chronic anemia, acute on chronic kidney disease, hypoglycemia and hyperkalemia. He required norepinephrine. It was felt he was having night adrenal crisis, he was started on IV hydrocortisone and responded well to that. He transitioned to oralhydrocortisone. In the hospital his admission hemoglobin was 7.5, this dropped to 4.7 after fluid resuscitation. Herequired 2 units of packed red blood cells. He had an EGD which showed mild gastritis and no activebleeding. His renal function and hyperkalemia responded well to treatment with hydrocortisone and fluid resuscitation. Patient on warfarin prior to admission. His INR was 7.8 at admission and was reversed with vitamin K. He has a history of pulmonary emboli. He was started on apixaban and aspirin and ibuprofen were discontinued. CT of his abdomen and pelvis showed bilateral adrenal masses which were felt to be metastatic disease. Patient declined further workup. He came to [facility] for further rehab and therapy. He was sent to the emergency room on 08/21/2023 for tachycardia and hypoxia. He declined any assessment in the emergency room except for a chest x-ray. Chest x- ray showed prominence of interstitium suggesting underlying fibrosis. Per nursing since coming to the facility his blood pressures have been running low. He is requiring2 L of oxygen to keep his oxygen sats above 90%. He is having pain in his legs and sacrum. He does have breakdown to his coccyx and Tylenol was initiated yesterday along with Calmoseptine ointment. Patient had scheduled lab draw for this morning and he declined this. Patient is seen in his room. He is in bed. He says he has a follow up appointment for his legs today. He expresses that he no longer wants any lab work, hospitalization or emergency room visits. He wants to be comfortable. He does not want to be assessed by this provider. Did ask patient if he wants hospice, he said no. He verbalized understanding that declining further labs or hospitalization could hasten his , he verbalize that when it is time to he is ready. He does not want any further workup on his adrenal masses. I personally reviewed the most recent following items: clinical notes, lab results, imaging reports The following medical problems were actively reviewed (including updating overview sections as necessary) and addressed as part of today's visit: Diagnosis Overview 1. 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 Malignant Neoplasm Of Lower Limb Basal Cell Carcinoma Right 3. 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 Peripheral Vascular Disease (HCC) 5. Phantom Limb Syndrome Without Pain (HCC) 6. Other Specified Disorders Of Adrenal Gland (HCC) - Primary Incidental finding. CT shows Large bilateral adrenal [...] Continuing to review options with the patient. 7. Embolus Pulmonary Personal History Lifelong anticoagulation, now on apixaban rather than warfarin due to poor compliance with monitoring. 8. Other Chronic Pain History of chronic pain including shoulders, back, phantom limb pain. No significant complaints about pain in the last several days. On acetaminophen, lidocaine patch, gabapentin. Stop ibuprofen. 9. Hyperlipidemia Restart statin 10. Hemorrhage Gastrointestinal Uncertain history of outpatient bleeding. Hemoccult positive on admission but subsequently no evidence of ongoing bleeding. Received blood transfusion for severe anemia. EGD showed no active bleedingand no source of high risk bleeding. Mild gastritis. No evidence of ongoing bleeding. Hemoglobin stable. Restart apixaban for history of DVT and PE 11. Failure Renal Likely due to combination of factors including hypotension, ibuprofen use, GI bleeding. Much improved. Creatinine at 5.4 on August 11/admission. Creatinine stable at 1.2. 12. Chronic Systolic (Congestive) Heart Failure (HCC) Resume lisinopril 08/15/2023. Patient occasionally refusing diuretic. Switch from furosemide b.i.d. to torsemide daily to improve compliance Echocardiogram shows normal LV size , ejection fraction of 55-60%, increased wall thickness, basal inferior wall motion, dilated aorta at 4.6 cm. At risk for heart failure due to medication noncompliance. 13. Chronic Kidney Disease (CKD), Stage 3 Unspecified ([facility]) baseline creatinine 1.4-1.5 baseline creatinine 1.4-1.5 With acute renal failure as noted above Baseline creatinine 1.3-1.6 Continue management as above 14. Cardiomyopathy In Diseases Classified Elsewhere (HCC) Per preop, EF of 39% Per preop, EF of 39% 15. Atherosclerotic Heart Disease Of [place] Coronary Artery Without Angina Pectoris Currently asymptomatic 16. Cardiomegaly 17. Anemia Hemoglobin in the ED 7.5, on recheck on arrival to floor 4.7, however redrawn immediately and notedto be 7.0 Transfused 2 units PRBC Hemoglobin is stable Continue apixaban. Stop warfarin, aspirin, ibuprofen 18. Addisonian Crisis ([facility]) Admitted with presumed acute adrenal crisis with hypotension, hyperkalemia, altered mental status, low blood sugar, bilateral adrenal masses on CT. Responded well to IV and now oral hydrocortisone. Random cortisol level was relatively normal at 8 prior to hydrocortisone. 19. 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 20. 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 21. Hypotension On admission had hypotension. Received fluid resuscitation, blood transfusion and then pressors. Inaddition to blood loss causing anemia and hypotension, it was felt he had adrenal insufficiency. With hydrocortisone his blood pressure normalized. 22. Weakness General Generalized, in setting of above. Prior to admission was apparently living independently but unclear how well he was doing with mobility media services specialist - patient lives independently in his own apartment. Currently not able to transfer independently. May need snf facility for rehab 23. 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 Acute Respiratory Failure With Hypoxia ([facility]) CODE STATUS: DNR/DNI with patient on comfort care measures REVIEW OF SYSTEMS Complete review of systems was performed, as allowable by patient's cognitive status, and incorporating collateral history if applicable. Relevant positives are noted elsewhere in this note, otherwise negative. OBJECTIVE Vital signs provided by facility: BP (!) 71/66 Comment: Provider notified of BP. Vitals per [facility] EHR Pulse 95 Temp (!) 35.9 ??C Resp 18 Wt 85.4 kg SpO2 93% Comment: O2 per [place] PHYSICAL EXAM Constitutional Appearance: He is ill-appearing. Pulmonary Effort: Pulmonary effort is normal. No respiratory distress. Comments: Wearing oxygen via nasal cannula Skin Comments: He has a dressing on the top of his head Neurological Mental Status: Mental status is at baseline. Psychiatric Mood and Affect: Affect is blunt. He declines further assessment, declines to allow this provider to listen to his lungs, heart or abdomen. He declines any skin assessment or assessment of his musculoskeletal system. ASSESSMENT / PLAN Full background details regarding problems addressed at today's visit can be found in the HPI. Pertinent changes to the care plan based on today's evaluation are explicitly discussed below, otherwiselisted problems are stable and present management will be continued. 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 Patient declines further workup. Continue fludrocortisone 0.1 mg every morning and hydrocortisone 20 mg in the morning and 10 in the evening . #3 Anemia #4 Hemorrhage Gastrointestinal #5 Failure Renal Patient declines further labs #6 Acute Respiratory Failure With Hypoxia ([facility]) Oxygen 1-4 liters to keep oxygen saturation greater than 90% #7 Cardiomegaly #8 Cardiomyopathy In Diseases Classified Elsewhere ([facility]) No further workup #9 Chronic Systolic (Congestive) Heart Failure ([facility]) Torsemide #10 Hypertensive Heart And Chronic Kidney Disease With Heart Failure And Stage 1 To 4 Chronic Kidney Disease Or Unspecified Chronic Kidney Disease ([facility]) Discontinue lisinopril #11 Hypotension Discontinue lisinopril. 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 Goal is comfort focused care. New POLST was signed. He is not interested in hospice. The following comfort meds were prescribed: Lorazepam 0.5 mg every 4 hours as needed for anxiety or shortness a breath Morphine 5 mg every 4 hours as needed for pain or shortness a breath PATIENT EDUCATION Ready to learn, no apparent learning barriers were identified; learning preferences include listening. Explained diagnosis and treatment plan; patient/child/caregiver expressed understanding of the content. Billing based on: Time, including the following tasks: reviewing the electronic medical record, updating the EPIC Problem List, reviewing written facility- provided information, reviewing information in facility EMR, medication reconciliation, obtaining collateral history from facility staff, Interviewing and examining the patient, placing orders, communicating orders to facility, providing education/counseling to patient, family, and/or facility staff. Total time 60 minutes. documented in this encounter Miscellaneous Notes * ACP (Advance Care Planning) - Radha Chappell APRN, C.N.Song., R.N. - 08/24/2023 8:30 AM CDT Advance Care Planning Reason for Conversation This patient is a 83 y.o. year old male that presents for post hospital visit. 1. Patient has understanding of conditions: yes 2. Patient understands treatment options: yes 3. Patient has potential benefits and risks of proposed treatments/interventions: yes. Optional Expression of Values/Preferences for Specific Life-Prolonging Treatments: The patient, Tl Lugo, indicates the following preference: The patient elects comfort measuresonly: Allow Natural . Treatment plan goals are to maximize comfort through symptom management.Provide treatments to relieve pain and suffering. No transfer to hospital for life-sustaining treatment. May transfer to hospital if comfort measures cannot be provided in current setting. Relieve pain and suffering through the use of any medication by any route, positioning, wound care, and other measures. Use oxygen, suction, and manual treatment of airway obstruction as needed for comfort. No further labs or hospitalizations Others Present: The following person/people were also present during the discussion: None Other Comments: He has two friends, Analisa Olverantosh and Silvano Olverantosh that are listed as emergency contacts. 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 4 Chronic Kidney Disease Or Unspecified Chronic Kidney Disease (HCC) Hypotension Atherosclerotic Heart Disease Of [place] Coronary Artery Without Angina Pectoris Chronic Kidney Disease (CKD), Stage 3 Unspecified (HCC) Activated Protein C Resistance (HCC) Embolus Pulmonary Personal History Malignant Neoplasm Of Lower Limb Basal Cell Carcinoma Left Malignant Neoplasm Of [place] Basal Cell Carcinoma Right Malignant Neoplasm Of Lower [place]imb Squamous Cell Carcinoma Left Peripheral Vascular Disease (HCC) 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 [address] [place] [phone] PCP - General Family Medicine 08/20/23 documented as of this encounter
--- OUTSIDE RECORDS SUMMARY | 2023-08-27 16:33 | XMS_ITS | Encounter Summary ---
Author Organization [facility] Address [address] [place] [address] Care Team Providers Care Manager Metal Name Role Phone Radha Chappell APRN, C.NJhonPJhon Primary Care Provi matteo Reason for Visit * Reason Comments Rapid Heart Rate Patient presents via EMS R/T tachycardia. Patient states that he does not want to be here. Encounter Details Date Type Department Care Team (Late st Contact Info) Description 08/21/2023 12:59 PM CDT - 08/21/2023 2:39 PM CDT Emergency [facility] [address] [place] [address] [phone] Srinivasan Grande M.D. [address] [place] [address] [phone] Tachycardia (Primary Dx); Hypoxia Discharge Disposition: Home or Self Care Social [...] Sign Reading Time Taken Comments Blood Pressure 90/69 08/21/2023 2:28 PM CDT Pulse 107 08/21/2023 2:28 PM CDT Temperature 37.6 ??C (99.7 ??F) 08/21/2023 12:48 PM C DT Respiratory Rate 20 08/21/2023 2:28 PM CDT Oxygen Saturation 94% 08/21/2023 2:28 PM CDT Inhaled Oxygen Concentration - - Weight 84.4 kg (186 lb) 08/21/2023 12:51 PM CDT Height - - Body Mass Index - - documented in this encounter Discharge Instructions * Discharge Instructions* Srinivasan Grande M.D. - 08/21/2023 2:13 PM CDT Continued with oxygen supplementation 2-3 L nasal cannula to keep oxygen saturations greater than 90% * Attachments The following attachments cannot be sent through Care Everywhere. * Hypoxemia ([place]ux[place]bourgish) documented in this encounter Medications at Time [...] 20 mEq by mouth every morning. 08/20/2023 hydrocortisone (Cortef) 10 mg tablet Take 10 mg by mouth every evening. 08/20/2023 hydrocortisone (Cortef) 20 mg tablet Take 20 mg by mouth daily with breakfast. 08/20/2023 torsemide (Demadex) 20 mg tablet Take 20 mg by mouth daily. 08/20/[address] tablet Take 81 mg by mouth daily. 08/24/2023 furosemide (LASIX) 20 mg tablet 2 (two) times a day. 04/12/2020 024 HYDROcodone-acetaminop hen (NORCO) 5-325 mg per tabletIndications:Prol onged Acute Pain/Traumatic Injury Take 1 tablet by mouth every 6 (six) hours as needed for severe pain or score 7-10 of 10 Indication: Prolonged Acute Pain/Traumatic Injury. 20 tablet 08/08/2020 08/24/2023 ibuprofen (ADVIL,MOTRIN) 200 mg tablet Take 200 mg by mouth every 6 (six) hours as needed for pain. 08/24/2023 UNABLE TO FIND 200 each. Ibuprofen PM 200/38 08/24/2023 warfarin (COUMADIN) 4 mg tablet Take one-half tablet --. 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 Respiratory: Negative for cough and shortness of breath. Cardiovascular: Negative for chest pain and palpitations. Gastrointestinal: Negative for abdominal pain, constipation, diarrhea, nausea and vomiting. Neurological: Negative for syncope and light-headedness. OBJECTIVE Initial Vitals Temperature 08/21/23 1248 37.6 ??C Pulse Rate 08/21/23 1251 (!) 120 Heart Rate 08/21/23 1251 (!) 119 Resp Rate 08/21/23 1251 23 Blood Pressure 08/21/23 1251 102/62 SpO2 08/21/23 1251 94 % Pain Score 08/21/23 1251 0 - No pain PHYSICAL EXAMINATION Constitutional: Nursing note and vitals reviewed. He is uncooperative. HENT: Head: Normocephalic. Mouth/Throat: Mucous membranes are dry. Eyes: Conjunctivae are normal. Pupils are equal, round, and reactive to light. Neck: Neck supple. Cardiovascular: Regular rhythm. Tachycardia present. Pulses are palpable. Capillary refill: takes less than 3 seconds Pulmonary/Chest: Effort normal. He has rales. Abdominal: Soft. Bowel sounds are normal. There is no abdominal tenderness. Musculoskeletal: Cervical back: Normal range of motion and neck supple. Comments: Patient has right leg amputated over the knee Neurological: Alert and oriented to person, place, and time. Skin: Skin is warm. ASSESSMENT/PLAN Assessment and Plan This is a 83 year old male presenting with tachycardia around the 120s, he is oriented and alert, SpO2 in the 80s, good response to O2 by nasal cannula, patient denies any lab work to be done even after discussion about possible outcomes even with the possibility of , only test allowed by patient was a chest x ray. DIFFERENTIAL DIAGNOSES Pneumonia, ACS, CHF, COPD. ED Course as of 08/21/23 1416 Sat Aug 21, 2023 1354 DX Chest Portable 1 View IMPRESSION: 1. No acute cardiopulmonary disease. 2. Mild prominence of the interstitium suggesting underlying fibrosis. 1355 ECG 12 Lead IMPRESSION: Sinus tachycardia Inferior infarct , age undetermined ST and T wave abnormality, consider lateral ischemia No previous ECGs available 1416 Patient will be discharge and transported back to the longterm Final Diagnoses: as of 08/21/23 1416 Tachycardia Hypoxia Altaf Sinha 08/21/23 1416 * Srinivasan Grande M.D. - 08/21/2023 12:55 PM CDT SUBJECTIVE CHIEF COMPLAINT/REASON FOR VISIT Rapid Heart Rate (Patient presents via EMS R/T tachycardia. Patient states that he does not wantto be here.) HISTORY OF PRESENT ILLNESS Patient with a complex past medical history recently diagnose from [facility] sent to the emergency department by care facility staff for evaluation of tachycardia and reports of tachypnea. Upon arrival, patient is refusing absolutely all cares, refusing to answer several questions as wellas parts of the physical examination. Patient refusing all laboratory evaluation, refusing IV placement, refusing any medication recommendations, willing to accept x-ray of chest as it was not typically require oxygen. Patient is alert and oriented, able to answer questions and competent. In the presence of nursing staff, patient expressed understanding utilizing the teach-back method that by refusing evaluation, he understands that this may result in failure to diagnose a dangerous and terminal condition, expresses understanding that failure to diagnose may result in decompensation, and hasten in his . He states is he a DNR DNI, and refuses all evaluation with the exception of chest x-ray. History provided by: EMS personnel and patient REVIEW OF SYSTEMS Unable to perform ROSLimited ROS performedReason unable to perform ROS: Refuses. Constitutional: Negative for chills and fever. Respiratory: Negative for cough and shortness of breath. Cardiovascular: Negative for chest pain and palpitations. Gastrointestinal: Negative for abdominal pain, nausea and vomiting. Genitourinary: Negative. Neurological: Negative for syncope, light-headedness and headaches. OBJECTIVE Initial Vitals Temperature 08/21/23 1248 37.6 ??C Pulse Rate 08/21/23 1245 (!) 120 Heart Rate 08/21/23 1245 (!) 120 Resp Rate 08/21/23 1245 (!) 26 Blood Pressure 08/21/23 1245 90/60 SpO2 08/21/23 1245 (!) 89 % Pain Score 08/21/23 1251 0 - No pain PHYSICAL EXAMINATION Constitutional: Nursing note and vitals reviewed. He is active. Non-toxic appearance. He does not have a sickly appearance. He does not appear ill. No distress. Uncooperative HENT: Head: Normocephalic and atraumatic. Mouth/Throat: Oropharynx is clear and moist. Cardiovascular: Regular rhythm. Tachycardia present. Pulmonary/Chest: Tachypnea noted. He has rales in the right lower field and the left lower field. Abdominal: Soft. Normal appearance. Neurological: GCS eye subscore is 4. GCS verbal subscore is 5. GCS motor subscore is 6. Normal speech. Psychiatric: Mood/affect: Blunt. Irritable ASSESSMENT/PLAN Assessment and Plan Impression: Hypoxia, tachycardia Plan: 83-year-old male brought to the emergency department by ambulance for evaluation of concerns noted by care facility staff of tachycardia, with oxygen saturations noted to be 87% on room air by EMS staff. Upon arrival, patient is very angry that he was here, stating he did not want to come here. He refuses any lab draw evaluation, and will only answer occasional questions. He was willing to accept a chest x-ray, as well as oxygen supplementation, though will not allow any further evaluation modalities to be pursued. As noted, we did discuss with him, verifying his understanding utilizingthe teach-back method, though he was making the choice to refuse or diagnostic evaluation, and thatthe risks of failure to diagnosis includes but is not limited to myocardial infarction resulting inpoor heart function, respiratory failure, and . He states that he does not want any evaluationdone, and that we should leave him alone. I did discuss the case with the servicenow administrator developer at the patient's living facility, recommending the attending modify his care plan to reflect his current wishes, as he was declining almost all evaluation here today. ED Course as of 08/21/23 1529 Sat Aug 21, 2023 1312 I reviewed the patients POLST, which notes as of yesterday the patient had checks elective treatment including medical treatments antibiotics IV fluids and crisis clinician. With transfer to hospital if indicated. Patient expresses that he does not want this, and wants to be comfort cares only,refusing medical treatment, any evaluation with the exception of a single-view chest x-ray and refusing lab draw and IV placement for IV fluid. Patient does not usually wear oxygen, though oxygen supplementation initiated given patient's hypoxia to 87- 88% on room air. 1329 EKG shows sinus tachycardia with lateral ST changes concerning for ischemia. Patient refuses any blood draw to evaluate troponin/allow evaluation for acute myocardial injury 1331 Mild prominence of the hilum suggestive of interstitial fibrosis as noted on chest x-ray. No other acute changes are noted Final Diagnoses: as of 08/21/23 1529 Tachycardia Hypoxia Srinivasan Grande M.D. 08/21/23 1529 documented in this encounter Plan of Treatment Not on file documented as of this encounter Procedures Procedure Name Priority Date/Time Associated Diagnosis Comments DX CHEST PORTABLE 1 VIEW RAD - Semiurgent (Fast; most ED patients; some inpatients) 08/21/2023 1:23 PM CDT ECG STAT 08/21/2023 12:48 PM CDT documented in this encounter Results * DX Chest Portable 1 View [...] CDT) Ventricular Rate ECG/Min 118 BPM MUSE UT Interval 170 ms MUSE QRSD Interval 102 ms MUSE QT Interval 310 ms MUSE QTC Interval 434 ms MUSE P Holliday 36 degrees MUSE R Holliday -2 degrees MUSE T Wave Holliday 107 degrees MUSE 08/21/2023 12:4 8 PM [...] Srinivasan Grande M.D. ECG ORDERABLES MUSE NA documented in this encounter Visit Diagnoses Diagnosis Tachycardia- Primary Hypoxia documented in this encounter Care Teams Manager Metal Relationship Specialty Start Date End Date Radha Chappell APRN, C.N.P. [address] [place] [phone] PCP - General Family Medicine 08/20/23 documented as of this encounter
== END 2023-08-20 11:42 | disposition home or self-care (01) ==
LOC: AMB 08-27 16:30
PROVIDERS: PCP Family Medicine; Visit Provider Family Medicine
DX: D64.9 Anemia, unspecified (principal); Z99.3 Dependence on wheelchair
CPT/HCPCS: A0425; A0428